=== PATIENT | female | born 1965 | race Caucasian/White ===

== ENCOUNTER 2019-09-07 08:35 | Outpatient (CLI) | payer OTHER, MEDICARE, SELFPAY ==
--- NOTE | ~2019-09-07 | XR_ITS ---
XR abdomen/kub 1V 09/07/2019 09:04 Indication: Kidney stones. Procedure: KUB Comparison: No prior studies for comparison. Findings: There are multiple bilateral renal stones which are partially obscured by bowel content. Mo derate colonic fecal loading. There are cholecystectomy clips. No acute osseous abnormality. Impression: 1: Bilateral nephrolithiasis. Reviewed, dictated and finalized at location B. [employer] Impression: 1: Bilateral nephrolithiasis.
== END 2019-09-07 08:36 | disposition home or self-care (01) ==
LOC: ANHIMG 08:49
PROVIDERS: PCP Family Medicine Adolescent Medicine; Visit Provider Urology
DX: N20.0 Calculus of kidney (principal)
CPT/HCPCS: 74018

== ENCOUNTER 2019-09-18 16:39 | Outpatient (CLI) | payer OTHER, MEDICARE, SELFPAY ==
[2019-09-18 17:41] LABS: Partial Thromboplastin Time 25.9 SEC (22.3-31.6); Prothrombin Time 10.7 Seconds (9.64-11.0)
== END 2019-09-18 16:40 | disposition home or self-care (01) ==
LOC: CHSLAB 16:47
PROVIDERS: PCP Family Medicine Adolescent Medicine; Visit Provider Anesthesiology
DX: N20.0 Calculus of kidney (principal)
CPT/HCPCS: 36415; 85610; 85730; 87086; 87088

== ENCOUNTER 2019-09-21 02:20 | Day surgery (SDC) | payer OTHER, MEDICARE, SELFPAY ==
[2019-09-18 11:12] VITALS: BMI 37.5
[2019-09-21] VITALS (9 sets, daily range): BP systolic 120–159; BP diastolic 66–82; PULSE 63–77; RESP 8–18; TEMP 37.2–37.8; O2SAT 94–100; BMI 38.3
--- NOTE | ~2019-09-21 | XR_ITS ---
XR abdomen/kub 1V DATE: 09/21/2019 07:33 INDICATION: Right renal lithotripsy TECHNIQUE: AP projection, 2 views COMPARISON: 09/07/2019 KUB FINDINGS: Multiple calcifications overlie the right kidney, measuring up to approximately 5 mm francisco j l dimension. Gas and fecal content of the transverse colon may obscure previously reported left renal calcified stones. No apparent calcification overlying the ureters since 09/07/2019. Status post cholecystectomy There is some opaque tablets within the bowel. No bowel obstruction is evident. IMPRESSION: Right nephrolithiasis; mild content prevents optimal evaluation for left kidney stones. Noncontrast CT abdomen pelvis would be more helpful for evaluation of urinary tract stones. Reviewed, dictated and finalized at Location A. Reviewed, dictated and finalized at location D. IMPRESSION: Right nephrolithiasis; mild content prevents optimal evaluation for left kidney stones. Noncontrast CT abdomen pelvis would be more helpful for evaluation of urinary t ract stones.
[2019-09-21] MEDS: LACTATED RINGERS 1,000 ML 30 ML IV CONT (07:45)
--- NOTE | 2019-09-21 08:11 | WPDHPUPDATE1 ---
History and Physical Update Update Date/Time: 09/21/19 08:11 History and Physical has been reviewed, including an updated exam of the patient. There are NO changes in the patient's condition. Risks, benefits, and alternatives have been discussed and questions answered. Patient agrees to proceed with procedure.
--- NOTE | 2019-09-21 09:19 | WPDANESEPPF ---
Anes - Initial Pre Proc Eval Procedure: Operation Date: 09/21/19 09:30 Proposed Procedures p Flexible Cystoscopy, Right Renal Extracorporeal Shock Wave Lithotripsy - Jose Miguel Ortiz MD Date/Time: 09/21/19 09:19 Surgeon: Jose Miguel Ortiz MD Pre Op Diagnosis: Right Kidney Stones Patient Data Age: 54 Gender: F Height: 5 ft 2 in Weight: 95.1 kg Last Vital Signs Temp 37.8 C H 09/21/19 07:45 Pulse 63 09/21/19 07:45 Resp 18 09/21/19 07:45 BP 133/66 09/21/19 07:45 Pulse Ox 95 09/21/19 07:45 Allergies Allergy/AdvReac Type Severity Reaction Status Date / Time No Known Allergies Allergy Unverified 09/18/19 10:47 Home Medications Medication Instructions Recorded Confirmed Type albuterol sulfate 2 puff INHALATION QID PRN 09/18/19 09/18/19 History amitriptyline 25 mg PO HS 09/18/19 09/18/19 History atorvastatin 20 mg PO DAILY 09/18/19 09/18/19 History doxycycline hyclate 100 mg PO DAILY 09/18/19 09/18/19 History ergocalciferol (vitamin D2) 50,000 unit PO MONTHLY 09/18/19 09/18/19 History [Vitamin D2] folic acid 1 mg PO DAILY 09/18/19 09/18/19 History hydrocodone-acetaminophen 1 tablet PO Q6H PRN 09/18/19 09/18/19 History levetiracetam 1,500 mg PO BID 09/18/19 09/18/19 History omeprazole magnesium [Prilosec OTC] 20 mg PO DAILY 09/18/19 09/18/19 History propranolol 20 mg PO Q12H 09/18/19 09/18/19 History sertraline 100 mg PO DAILY 09/18/19 09/18/19 History solifenacin 10 mg PO DAILY 09/18/19 09/18/19 History topiramate 25 mg PO HS 09/18/19 09/18/19 History Patient hx anesthesia problems: none Family hx anesthesia problems: none PMFSH Past Medical History Medical History (Updated 09/21/19 @ 09:19 by Jose Juan Ureña MD) Multiple sclerosis Obesity Anes - Eval Final PreProcedure Day of Procedure 09/21/19 09:19 Patient weight: obese Heart: regular rate and rhythm Lungs: clear to auscultation Airway: Mallampati scale class II Neurological: alert and oriented Last oral intake: >/= 8 hours ASA classification: IV Emergent: no Anesthetic plan: proceed Anesthesia type and monitoring: general LMA and standard monitoring Informed Consent: The patient's anesthetic plan and its attendant risks and benefits were discussed with the patient/family/POA. Questions were solicited and answers provided to the satisfaction of the patient/family/POA.
[2019-09-21] MEDS: ceFAZolin 2 GM/D5W 50 ML 2 GM/50 ML BAG IVPB (09:46)
--- NOTE | 2019-09-21 10:28 | PM.PROC ---
Procedure Note - Detailed Date of procedure: 09/21/19 Pre-op diagnosis: Right Kidney Stones Right renal calculi Hematuria Post-op diagnosis: same Procedure performed: Flexible cystoscopy, lithotripsy of right renal calculi Description of procedure: Patient was taken to the operative suite and correctly identified. Once anesthesia was obtained she was placed in frog-leg position prepped and draped usual sterile fashion. Sixteen Lithuanian flexible scope was inserted in the bladder there is no tumors noted. Both ureteral orifices normal anatomic position. She is then repositioned and the stones in the kidney localized in both planes. There approximately 3 distinct stones noted. We dispersed a 2500 shocks amongst those stones. Patient tolerated procedure well without any complications taken recovery room stable condition. Given the standard post litho instructions. She will follow up in about 10 days with KUB. Anesthesia: GLMA Surgeon: Jose Miguel Ortiz MD Drains: No Packing: No Pathology: none sent Complications: No immediate complications Condition: stable Disposition: PACU
--- NOTE | 2019-09-21 12:35 | SUR.PHASEII ---
1220 PT REFUSED SCRIPT FOR ULTRAM,TAKES [employer] 7.5 SEVERAL TIMES A DAY.
== END 2019-09-21 12:32 | disposition home or self-care (01) ==
PROVIDERS: PCP Family Medicine Adolescent Medicine; Visit Provider Urology
PROC: (CPT 50590; principal; 2019-09-21 09:30)
DX: N20.0 Calculus of kidney (principal); G35 Multiple sclerosis; E66.9 Obesity, unspecified; Z68.38 Body mass index [BMI] 38.0-38.9, adult
CPT/HCPCS: 50590; 74018; A9270; J0690; J1100; J2250; J2370; J2405; J2704; J3010; J7120

== ENCOUNTER 2019-09-22 07:50 | Outpatient (CLI) | payer OTHER, MEDICARE, SELFPAY ==
--- NOTE | ~2019-09-22 | MR_ITS ---
EXAMINATION: MR lumbar spine wo con DATE: 09/22/2019 09:26 INDICATION: Low back pain and sciatica with bilateral leg pain. TECHNIQUE: Magnetic resonance imaging (MRI) of the lumbar spine was performed without intravenous con trast. Sequences included sagittal T2-weighted FSE, sagittal T2-weighted FS FSE, sagittal T1-weighted FSE, and axial T2-weighted FSE. COMPARISON: Lumbar spine radiographs dated 11/15/2017 FINDINGS: Alignment is normal. Vertebral body heights are normal. Normal marrow signal. Disc desiccation and m ild disc height loss at L2-L3 through L5-S1. The conus medullaris terminates at L2. There is normal s ignal in the caudal spinal cord. Paravertebral soft tissues are unremarkable. The following disc leve ls are specifically discussed: T12-L1: The disc does not extend beyond the endplate margin. There is mild bilateral facet joint oste oarthritis. There is no neural foraminal stenosis. There is no central canal stenosis. L1-L2: The disc does not extend beyond the endplate margin. There is mild bilateral facet joint osteo arthritis. There is no neural foraminal stenosis. There is no central canal stenosis. L2-L3: Annular fissure and left foraminal zone disc protrusion There is mild bilateral facet joint os teoarthritis. There is mild left neural foraminal stenosis. There is no central canal stenosis. L3-L4: Small disc protrusions at the bilateral foraminal zones, left greater than right. There is mil d hypertrophy of the ligamentum flavum. There is old right and moderate left facet joint osteoarthri tis. There is mild left neural foraminal stenosis. There is no central canal stenosis. L4-L5: Disc is minimally bulging with superimposed annular fissure and left foraminal zone disc protr usion. There is mild hypertrophy of the ligamentum flavum. There is mild to moderate bilateral facet joint osteoarthritis. There is mild left and minimal right neural foraminal stenosis. There is minima l central canal stenosis. L5-S1: Annular fissure with small left paracentral to foraminal zone disc protrusion. There is mild b ilateral facet joint osteoarthritis. There is mild left and minimal right neural foraminal stenosis. There is no central canal stenosis. IMPRESSION: 1. Mild lumbar spondylosis. Reviewed, dictated and finalized at location A. IMPRESSION: 1. Mild lumbar spondylosis.
--- NOTE | ~2019-09-22 | MR_ITS ---
EXAMINATION: MR cervical spine wo con DATE: 09/22/2019 09:10 INDICATION: Neck pain TECHNIQUE: Magnetic resonance imaging (MRI) of the cervical spine was performed without intravenous c ontrast. Sequences included sagittal T2-weighted FSE, sagittal T2-weighted FS FSE, sagittal T1-weight ed FSE, axial MERGE and axial T2-weighted FSE. COMPARISON: None FINDINGS: Slight reversal of the normal cervical lordosis. Vertebral body heights are normal. Moderate disc he ight loss at 3 C4 and mild disc height loss at C4-C5 through C6-C7. Cord signal intensity is normal. Cervical soft tissues are unremarkable. The following disc levels are specifically discussed: C2-C3: The disc does not extend beyond the endplate margin. There is no uncovertebral joint osteoarth ritis. There is mild right and severe left facet joint osteoarthritis. There is mild left neural fora rob stenosis. There is no central canal stenosis. C3-C4: Disc is bulging with annular fissure and small central disc extrusion with disc material exten ding up to 3 mm caudal to the level of the superior endplate of C4. There is mild right and moderate left uncovertebral joint osteoarthritis. There is moderate left and severe right facet joint osteoart hritis. There is mild bilateral neural foraminal stenosis. There is mild central canal stenosis. C4-C5: Disc is mildly bulging, eccentric to the right. There is moderate bilateral uncovertebral join t osteoarthritis. There is mild left and severe right facet joint osteoarthritis. There is mild left and moderate right neural foraminal stenosis. There is mild central canal stenosis. C5-C6: Disc is bulging, eccentric to the right with annular tear. There is moderate left and severe r ight uncovertebral joint osteoarthritis. There is mild left and moderate right facet joint osteoarthr itis. There is mild bilateral, right greater than left, neural foraminal stenosis. There is mild cent ral canal stenosis. C6-C7: Disc is bulging with superimposed left paracentral annular fissure and disc protrusion. There is severe bilateral uncovertebral joint osteoarthritis. There is mild bilateral facet joint osteoarth ritis. There is mild to moderate left and moderate right neural foraminal stenosis. There is mild manolo tral canal stenosis. C7-T1: The disc does not extend beyond the endplate margin. There is no uncovertebral joint osteoarth ritis. There is moderate bilateral facet joint osteoarthritis. There is mild left neural foraminal st enosis. There is no central canal stenosis. IMPRESSION: 1. Slight interval progression in still moderate cervical spondylosis. Reviewed, dictated and finalized at location A.
== END 2019-09-22 07:51 | disposition home or self-care (01) ==
PROVIDERS: PCP Family Medicine Adolescent Medicine; Visit Provider Psychiatry & Neurology Neurology
DX: M54.40 Lumbago with sciatica, unspecified side (principal); G43.909 Migraine, unspecified, not intractable, without status migrainosus; M47.816 Spondylosis without myelopathy or radiculopathy, lumbar region; M47.812 Spondylosis without myelopathy or radiculopathy, cervical region
CPT/HCPCS: 72141; 72148

== ENCOUNTER 2019-10-29 14:22 | Emergency (ER) | payer OTHER, MEDICARE, SELFPAY ==
--- NOTE | ~2019-10-29 | CT_ITS ---
EXAMINATION: CT chest w con EXAM DATE: 10/29/2019 16:33 INDICATION: Left supraclavicular swelling. Clinical concern for lymphadenopathy or venous thrombosis. TECHNIQUE: Spiral CT of the chest following intravenous injection of 75 mL Omnipaque 350. Delayed mix ed phase imaging, started 90 seconds after injection, and slower injection rate of 1.5 cc/s used to a llow for venous opacification. Axial, coronal and sagittal images were reviewed. Coronal maximum int ensity pixel images of chest reviewed. The dose-length product (DLP) for this examination was 543.17 mGy-cm. The exposure was tailored according to patient size (auto mA exposure control), and iterati ve reconstruction (ASIR) was used as additional dose reduction technique. FINDINGS: The jugular and subclavian veins demonstrating some enhancement, and are without filling de fects. No supraclavicular, axillary or lower cervical lymphadenopathy. There is dependent groundglass opacity, more pronounced than on previous examination, but likely subsegmental atelectasis given dep endent distribution. There are no pleural or pericardial effusions. Tracheobronchial tree is paten t. No mediastinal lymphadenopathy. There is no pneumothorax. Heart normal in size. No evidence of coronary arterial calcification. There is hepatic steatosis. Cholecystectomy clips. There is th oracic spondylosis without osteoblastic or osteolytic lesions identified. IMPRESSION: 1. No jugular or subclavian venous thrombosis. No lymphadenopathy. 2. Basilar dependent groundglass opacities most likely subsegmental atelectasis. Reviewed, dictated and finalized at location A. IMPRESSION: 1. No jugular or subclavian venous thrombosis. No lymphadenopathy. 2. Basilar dependent groundglass opacities most likely subsegmental atelectasi s.
--- NOTE | ~2019-10-29 | US_ITS ---
EXAMINATION: US venous doppler UE EXAM DATE: 10/29/2019 15:31 INDICATION: Left arm pain and swelling. TECHNIQUE: Multiple grayscale, color flow, Doppler sonographic images of the left upper extremity vei ns obtained by technologist. Compression was performed where able. There is no prior study for [place]. FINDINGS: Left upper extremity: Jugular vein: ------------> Normal. Subclavian vein: --------> Normal. Axillary vein:------------> Normal. Brachial vein:-----------> Normal. Basilic vein: ------------> Normal. Cephalic vein: ----------> Normal. Radial vein: ------------> Normal. Ulnar vein: > Normal. IMPRESSION: No deep venous thrombosis of the left upper extremity. Reviewed, dictated and finalized at location A.
[2019-10-29 14:30] VITALS: BP 125/50; PULSE 67; RESP 18; TEMP 36.6; O2SAT 98
--- NOTE | 2019-10-29 15:09 | PC.NURSE ---
Patient in ultrasound, unable to obtain labs or provided pain medication prior to patient leaving the department. Will give meds and draw blood upon her return.
--- NOTE | 2019-10-29 15:15 | ED.EXTPRO ---
HPI - Extremity Problem General Chief complaint: Extremity Problem,Nontraumatic Stated complaint: neck and shoulder swelling Time Seen by Provider: 10/29/19 14:56 History of Present Illness HPI Narrative: Patient presents with her for increasing pain and swelling in her left shoulder and left supraclavicular area. This is been going on over 2 to 3 weeks. There was no initial injury or trauma. She has no history of blood clot. She does have MS and sees Dr. Burden for this. She says that the [employer] 7.5 that she takes several times a day for her MS pain is not helping with this shoulder pain. She repeatedly asked for pain medicine. She denies recent illness, in particular cough shortness of breath fever and chills. She has been sheltering in place, and has no additional risk of COVID. Her appetite is good her bowels are moving and she makes good urine. She can only walk 2 or 3 steps by herself. She usually sits in a wheelchair. Related Data Home Medications Medication Instructions Recorded Confirmed Prilosec OTC 20 mg PO DAILY 09/18/19 09/18/19 albuterol sulfate 2 puff INHALATION QID PRN 09/18/19 09/18/19 amitriptyline 25 mg PO HS 09/18/19 09/18/19 atorvastatin 20 mg PO DAILY 09/18/19 09/18/19 ergocalciferol (vitamin D2) 50,000 unit PO MONTHLY 09/18/19 09/18/19 [Vitamin D2] folic acid 1 mg PO DAILY 09/18/19 09/18/19 hydrocodone-acetaminophen 1 tablet PO Q6H PRN 09/18/19 09/18/19 levetiracetam 1,500 mg PO BID 09/18/19 09/18/19 propranolol 20 mg PO Q12H 09/18/19 09/18/19 sertraline 100 mg PO DAILY 09/18/19 09/18/19 solifenacin 10 mg PO DAILY 09/18/19 09/18/19 topiramate 25 mg PO HS 09/18/19 09/18/19 calcium carbonate-vitamin D3 1 cap PO DAILY 10/29/19 [Calcium 600 + D(3)] lorazepam 0.5 mg PO DAILY 10/29/19 metaxalone 800 mg PO TID 10/29/19 methylprednisolone 4 mg PO DAILY 10/29/19 milnacipran [Savella] 50 mg PO BID 10/29/19 pilocarpine HCl 5 mg PO QID 10/29/19 pregabalin [Lyrica] 150 mg PO TID 10/29/19 Allergies Allergy/AdvReac Type Severity Reaction Status Date / Time No Known Allergies Allergy Verified 10/29/19 15:11 Review of Systems Review of Systems: Narrative: CONSTITUTIONAL: Denies fever, chills, or sweats. EYES: Denies visual changes, redness, or discharge. ENT: Denies rhinorrhea, congestion, sore throat, or otalgia. CARDIOVASCULAR: Denies chest pain, palpitations, or edema. RESPIRATORY: Denies cough or dyspnea. GASTROINTESTINAL: Denies abdominal pain, nausea, vomiting, or diarrhea. GENITOURINARY: Denies dysuria or hematuria. SKIN: Denies rash or itching. MUSCULOSKELETAL: Denies elbow or wrist pain, left shoulder pain is worse with movement. NEUROLOGIC: Denies headache, numbness, or weakness. PSYCHIATRIC: Denies anxiety or depression. All systems reviewed & are unremarkable except as noted in HPI and below PMFSH Past Medical History Medical History Multiple sclerosis Obesity Social History Social History (Updated 10/29/19 @ 15:18 by Constanza Crowley MD) Smoking status: Never smoker Alcohol intake: never Substance use: never Gender identity (if verbalized by the patient): Female Exam Narrative: Exam Narrative: GENERAL: Well-appearing, well-nourished, and in no acute distress, morbid obesity HEAD: Normocephalic, atraumatic. EYES: PERRLA and EOMI. ENT: Nares clear, no rhinorrhea or epistaxis. Mucous membranes moist. NECK: Supple. CHEST: Clear to auscultation. No respiratory distress. Supra clavicular swelling on the left. HEART: Regular rate and rhythm. No murmur heard. Normal peripheral pulses. ABDOMEN: Soft, nontender, nondistended, normal active bowel sounds. EXTREMITIES: Decreased range of motion of the left shoulder. no edema. SKIN: Warm, dry, no rash. NEURO: No focal deficits. Alert and oriented x3. PSYCH: Flat affect. Course Reevaluation(s) Reevaluation #1: We went to the room with the patient and her , to
--- NOTE | 2019-10-29 15:29 | PC.NURSE ---
Patient back from ultrasound at this time.
[2019-10-29 15:40] LABS: Basophils Absolute Auto 0.1 K/mm3 (0.0-0.1); Basophils Percent Auto 0.8 % (0.2-1.2); Eosinophils Absolute Auto 0.2 K/mm3 (0-0.3); Eosinophils Percent Auto 2.6 % (0-4.4); Hematocrit 49.9 % (37.0-47.0); Hemoglobin 16.4 g/dL (12.0-15.0); Immature Granulocyte Absolute 0.04 K/mm3 (0.00-0.031); Immature Granulocyte Percent A 0.5 % (0-0.5); Lymphocytes Absolute Auto 2.32 K/mm3 (0.9-3.2); Lymphocytes Percent Auto 29.7 % (18.3-44.2); Mean Corpuscular HGB Conc 32.9 g/dl (32-36); Mean Corpuscular Hemoglobin 31.6 pg (26-34); Mean Corpuscular Volume 96.1 fl (80-100); Monocytes Absolute Auto 0.6 K/mm3 (0.1-0.6); Monocytes Percent Auto 7.2 % (2.6-8.5); Neutrophils Absolute Auto 4.6 K/mm3 (1.3-6.7); Neutrophils Percent Auto 59.2 % (45.5-73.1); Platelet Count Result 169 k/mm3 (150-375); Red Blood Count 5.19 M/mm3 (4.2-5.4); Red Cell Distribution Width 13.3 % (11.5-14.5); White Blood Count 7.8 K/mm3 (4.5-10.0)
[2019-10-29 15:50] LABS: INR 0.9; Prothrombin Time 12.2 Seconds (11.1-14.7)
[2019-10-29 15:52] LABS: D Dimer 0.33 ug/mL (<0.48)
[2019-10-29 15:59] LABS: Alanine Aminotransferase 28 U/L (4-35); Albumin Level 4.4 g/dL (3.5-5.1); Alkaline Phosphatase 156 U/L (38-126); Aspartate Amino Transferase 37 U/L (14-36); Bilirubin,Total 0.4 mg/dL (0.2-1.3); Blood Urea Nitrogen 13 mg/dL (7-17); Calcium 8.9 mg/dL (8.4-10.2); Carbon Dioxide 26 mmol/L (22-30); Chloride 105 mmol/L (98-107); Estimated CRCL calculation 68 ml/min; Estimated Glomerular Filt Rate > 60; Glucose 98 mg/dL (65-105); Potassium 4.2 mmol/L (3.4-5.0); Sodium 139 mmol/L (137-145)
[2019-10-29 16:06] VITALS: BP 113/72; PULSE 62; RESP 19; TEMP 36.6; O2SAT 100
--- NOTE | 2019-10-29 16:13 | PC.NURSE ---
Patient to CT at this time.
[2019-10-29 17:14] VITALS: BP 115/69; PULSE 67; RESP 14; TEMP 36.6; O2SAT 98
== END 2019-10-29 17:45 | disposition home or self-care (01) ==
PROVIDERS: Emergency Provider Emergency Medicine; PCP Family Medicine Adolescent Medicine
DX: M25.512 Pain in left shoulder (principal); D75.1 Secondary polycythemia; G35 Multiple sclerosis; E66.9 Obesity, unspecified; Z68.36 Body mass index [BMI] 36.0-36.9, adult; M79.602 Pain in left arm
CPT/HCPCS: 36415; 71260; 80053; 85025; 85380; 85610; 93971; 99284; A9270; Q9967

== ENCOUNTER 2020-10-01 10:02 | Outpatient (CLI) | payer OTHER, MEDICARE, SELFPAY ==
--- NOTE | ~2020-10-01 | XR_ITS ---
XR abdomen/kub 1V 10/01/2020 10:31 Indication: Bilateral kidney pain Procedure: KUB Comparison: Comparison to multiple prior studies sequentially, with oldest reviewed study dated 03/2018. Findings: Bowel gas pattern is nonobstructive. There are multiple radiodensities in the bowel. Modera te colonic fecal loading. There are cholecystectomy clips. There are right renal stones.. Impression: 1: Right nephrolithiasis. Reviewed, dictated and finalized at location B. Impression: 1: Right nephrolithiasis.
== END 2020-10-01 10:03 | disposition home or self-care (01) ==
LOC: ANHIMG 10:10
PROVIDERS: PCP Family Medicine Adolescent Medicine; Visit Provider Urology
DX: N20.0 Calculus of kidney (principal)
CPT/HCPCS: 74018

== ENCOUNTER → 2020-10-07 05:01 | Outpatient (CLI) | payer OTHER, MEDICARE, SELFPAY ==
[2020-10-07 19:04] LABS: SARS-CoV-2 RNA PCR Negative
== END ==
PROVIDERS: PCP Family Medicine Adolescent Medicine; Visit Provider Urology
DX: Z01.812 Encounter for preprocedural laboratory examination (principal); Z20.822 Contact with and (suspected) exposure to COVID-19
CPT/HCPCS: C9803; U0003; U0005

== ENCOUNTER 2020-10-07 08:22 | Outpatient (CLI) | payer OTHER, MEDICARE, SELFPAY ==
--- NOTE | 2020-10-07 08:32 | ECG_ITS ---
Measurements Intervals [place] Rate: 55 P: 36 ND: 149 QRS: 18 QRSD: 97 T: 32 QT: 420 QTc: 403 Interpretive Statements SINUS BRADYCARDIA DELAYED PRECORDIAL R/S TRANSITION BORDERLINE ST-T WAVE ABNORMALITY- ANTERIOR LEADS BASELINE ARTIFACT- I, II, III, AVL BORDERLINE ECG Electronically Signed On 10-07-2020 8:58:05 CDT by Eduardo Sanchez D.O.
[2020-10-07 09:17] LABS: Hematocrit 44.6 % (37.0-47.0); Hemoglobin 14.3 g/dL (12.0-15.0)
[2020-10-07 09:28] LABS: INR 0.9; Partial Thromboplastin Time 27.5 SECONDS (22.3-36.8); Prothrombin Time 12.5 Seconds (11.1-14.7)
== END 2020-10-07 08:23 | disposition home or self-care (01) ==
LOC: ANHSURGERY 08:26
PROVIDERS: Anesthesiology; PCP Family Medicine Adolescent Medicine; Visit Provider Urology
DX: N20.0 Calculus of kidney (principal); E78.5 Hyperlipidemia, unspecified; D75.1 Secondary polycythemia; Z01.818 Encounter for other preprocedural examination
CPT/HCPCS: 36415; 85014; 85018; 85610; 85730; 93005

== ENCOUNTER 2020-10-10 02:19 | Day surgery (SDC) | payer OTHER, MEDICARE, SELFPAY ==
[2020-10-06 15:44] VITALS: BMI 32.5
--- NOTE | ~2020-10-10 | XR_ITS ---
EXAMINATION: XR abdomen/kub 1V DATE: 10/10/2020 06:25 INDICATION: Right kidney stones. TECHNIQUE: A supine view of the abdomen on 2 radiographs was obtained. COMPARISON: Abdomen radiographs 10/01/2020, CT abdomen and pelvis 06/09/2017 FINDINGS: There are no dilated loops of bowel. There are stones in the kidneys measuring up to 4 mm o n the right. Surgical clips in the right upper quadrant are likely from cholecystectomy. IMPRESSION: 1. Bilateral kidney stones. Reviewed, dictated and finalized at location A. IMPRESSION: 1. Bilateral kidney stones.
--- NOTE | 2020-10-10 06:51 | P.PNAN_ITS ---
Anes - Initial Pre Proc Eval Procedure: Operation Date: 10/10/20 07:30 Proposed Procedures p Right Extracorporeal Shock Wave Lithotripsy - Jose Miguel Ortiz MD Date/Time: 10/10/20 06:51 Surgeon: Jose Miguel Ortiz MD Pre Op Diagnosis: Right Renal Stone Patient Data Age: 55 Gender: F Height: 5 ft 4 in Weight: 86 kg Allergies Allergy/AdvReac Type Severity Reaction Status Date / Time No Known Allergies Allergy Verified 10/10/20 06:34 Home Medications Medication Instructions Recorded Confirmed Type albuterol sulfate 2 puff INHALATION QID PRN 09/18/19 10/10/20 History amitriptyline 25 mg PO HS 09/18/19 10/10/20 History atorvastatin 20 mg PO DAILY 09/18/19 10/10/20 History ergocalciferol (vitamin D2) 50,000 unit PO MONTHLY 09/18/19 10/10/20 History [Vitamin D2] folic acid 1 mg PO DAILY 09/18/19 10/10/20 History levetiracetam 1,500 mg PO BID 09/18/19 10/10/20 History omeprazole magnesium [Prilosec OTC] 20 mg PO DAILY 09/18/19 10/10/20 History propranolol 20 mg PO BID 09/18/19 10/10/20 History solifenacin 10 mg PO DAILY 09/18/19 10/06/20 History topiramate 25 mg PO HS 09/18/19 10/06/20 History lorazepam 0.5 - 1 mg PO BID PRN 10/29/19 10/10/20 History metaxalone 800 mg PO TID 10/29/19 10/06/20 History methylprednisolone 4 mg PO DAILY 10/29/19 10/10/20 History pregabalin [Lyrica] 150 mg PO TID 10/29/19 10/10/20 History aspirin 81 mg PO DAILY 10/06/20 10/10/20 History docusate sodium [Stool Softener] 50 mg PO BID 10/06/20 10/10/20 History doxycycline hyclate 100 mg PO HS 10/06/20 10/10/20 History meclizine 25 mg PO QID PRN 10/06/20 10/06/20 History tiotropium-olodaterol [Stiolto 2 puff INHALATION DAILY 10/06/20 10/06/20 History Respimat] Patient hx anesthesia problems: none Family hx anesthesia problems: none [facility] Past Medical History Medical History (Updated 10/10/20 @ 06:54 by Jose Juan Ureña MD) Multiple sclerosis Obesity SLE (systemic lupus erythematosus) Surgical History Surgical History (Updated 10/10/20 @ 06:54 by Jose Juan Ureña MD) Hx of cystoscopy Social History Social History Years smoked: 5 Smoking status: Former smoker Tobacco type: cigarettes Smoking end date: 07/04/90 Alcohol intake: never Substance use: never Substance use type: does not use Living arrangements: with family Gender identity (if verbalized by the patient): Female Spiritual care concerns: No Anes - Eval Final PreProcedure Day of Procedure 10/10/20 06:51 Patient weight: obese Heart: regular rate and rhythm Lungs: clear to auscultation Airway: Mallampati scale class II Neurological: alert and oriented Last oral intake: >/= 8 hours ASA classification: III Emergent: no Anesthetic plan: proceed Anesthesia type and monitoring: general LMA and standard monitoring Informed Consent: The patient's anesthetic plan and its attendant risks and benefits were discussed with the patient/family/POA. Questions were solicited and answers provided to the satisfaction of the patient/family/POA.
[2020-10-10] MEDS: LACTATED RINGERS 1,000 ML 30 ML IV CONT (07:00)
[2020-10-10 07:05] VITALS: BP 113/64; PULSE 60; TEMP 37.6; O2SAT 99
--- NOTE | 2020-10-10 07:16 | WPDHPUPDATE1 ---
History and Physical Update Update Date/Time: 10/10/20 07:16 History and Physical has been reviewed, including an updated exam of the patient. There are NO changes in the patient's condition. Risks, benefits, and alternatives have been discussed and questions answered. Patient agrees to proceed with procedure. Proceed with right renal eswl.
[2020-10-10] MEDS: ceFAZolin 2 GM/D5W 50 ML 2 GM/50 ML BAG IVPB (07:20)
--- NOTE | 2020-10-10 07:57 | P.OP_ITS ---
Procedure Note - Detailed Date of procedure: 10/10/20 Pre-op diagnosis: Right Renal Stone Post-op diagnosis: same Procedure performed: ESWL of right renal calculi Description of procedure: Patient is taken the operative suite and correctly clarissa ntified. Once anesthesia was obtained she was placed in supine position with the stone was localized in both planes. She has 2 stones in the right kidney and there fairly close in proximity. Two thousand five hundred shocks were given to the stones. Patient had quite a bit of respiratory effort during the procedure. Patient tolerated procedure well without any complications and is taken recovery room stable condition. Anesthesia: GLMA Surgeon: Jose Miguel Ortiz MD Drains: No Packing: No Pathology: none sent Complications: No immediate complications Condition: stable Disposition: PACU
[2020-10-10 08:07] VITALS: BP 111/65; PULSE 57; RESP 15; TEMP 37.6; O2SAT 100
[2020-10-10 08:15] VITALS: BP 111/67; PULSE 61; RESP 16; O2SAT 97
[2020-10-10] MEDS: fentaNYL CITRATE INJ (*CRX) 100 MCG/2 ML VIAL 25 MCG IV PUSH ×2 (08:27→08:31)
[2020-10-10 08:30] VITALS: BP 112/70; PULSE 60; RESP 12; O2SAT 96
[2020-10-10 08:35] VITALS: BP 125/61; PULSE 62; RESP 16
[2020-10-10] MEDS: oxyCODONE HCL (*CRX) 5 MG TAB IR PO (08:53)
[2020-10-10 09:05] VITALS: BP 123/64; PULSE 66; RESP 14
== END 2020-10-10 09:18 | disposition home or self-care (01) ==
PROVIDERS: PCP Family Medicine Adolescent Medicine; Visit Provider Urology
PROC: (CPT 50590; principal; 2020-10-10 07:30)
DX: N20.0 Calculus of kidney (principal); Z79.82 Long term (current) use of aspirin; Z79.51 Long term (current) use of inhaled steroids; G35 Multiple sclerosis; M32.9 Systemic lupus erythematosus, unspecified; Z87.891 Personal history of nicotine dependence; E66.9 Obesity, unspecified; Z68.34 Body mass index [BMI] 34.0-34.9, adult
CPT/HCPCS: 50590; 36415; 74018; 85014; 85018; 85610; 85730; 93005; A9270; C9803; J0690; J1100; J2405; J2704; J3010; J7120; U0003; U0005

== ENCOUNTER 2020-10-24 08:22 | Outpatient (CLI) | payer OTHER, MEDICARE, SELFPAY ==
--- NOTE | ~2020-10-24 | XR_ITS ---
EXAMINATION: XR abdomen/kub 1V DATE: 10/24/2020 09:26 INDICATION: Kidney stone. TECHNIQUE: A supine view of the abdomen on 2 radiographs was obtained. COMPARISON: CT abdomen and pelvis 06/09/2017, abdomen radiographs 10/10/2020 FINDINGS: There are no dilated loops of bowel. Surgical clips in the right upper quadrant are likely from cholecystectomy. There are 3 mm and 4 mm stones in right kidney. There is a 3 mm stone in proxim al right ureter at L3. There is 3 mm and 4 mm stones in left kidney. IMPRESSION: 1. Stones in the kidneys and proximal right ureter. Reviewed, dictated and finalized at location B.
== END 2020-10-24 08:23 | disposition home or self-care (01) ==
LOC: ANHIMG 08:28
PROVIDERS: PCP Family Medicine Adolescent Medicine; Visit Provider Urology
DX: N20.2 Calculus of kidney with calculus of ureter (principal)
CPT/HCPCS: 74018

== ENCOUNTER 2021-09-09 12:41 | Outpatient (CLI) | payer OTHER, MEDICARE, SELFPAY ==
[2021-09-09 13:58] LABS: Hematocrit 48.5 % (37.0-47.0); Hemoglobin 15.7 g/dL (12.0-15.0); Immature Platelet Fraction Pct 15.6 % (0.9-11.2); Mean Corpuscular HGB Conc 32.4 g/dl (32-36); Mean Corpuscular Hemoglobin 32.6 pg (26-34); Mean Corpuscular Volume 100.8 fl (80-100); Mean Platelet Volume 13.3 fl (7.4-10.4); Platelet Count Result 173 k/mm3 (150-375); Red Blood Count 4.81 M/mm3 (4.2-5.4); Red Cell Distribution Width 14.2 % (11.5-14.5); White Blood Count 9.5 K/mm3 (4.5-10.0)
[2021-09-09 14:11] LABS: Alanine Aminotransferase 30 U/L (4-35); Albumin Level 4.1 g/dL (3.5-5.1); Alkaline Phosphatase 158 U/L (38-126); Anion Gap 10 mmol/L (8-16); Aspartate Amino Transferase 37 U/L (14-36); Bilirubin,Total 0.6 mg/dL (0.2-1.3); Blood Urea Nitrogen 21 mg/dL (7-17); Calcium 8.9 mg/dL (8.4-10.2); Carbon Dioxide 25 mmol/L (22-30); Chloride 104 mmol/L (98-107); Estimated Glomerular Filt Rate > 60; Glucose 103 mg/dL (65-110); Sodium 139 mmol/L (137-145); Uric Acid 4.6 mg/dL (2.5-7.5)
== END 2021-09-09 12:42 | disposition home or self-care (01) ==
LOC: ANHLAB 12:52
PROVIDERS: PCP Family Medicine Adolescent Medicine; Visit Provider Physician Assistant
DX: M79.671 Pain in right foot (principal); R53.83 Other fatigue
CPT/HCPCS: 36415; 80053; 84443; 84550; 85027; 85055

== ENCOUNTER 2022-04-02 02:29 | Emergency (ER) | payer OTHER, MEDICARE, SELFPAY ==
--- NOTE | ~2022-04-02 | CT_ITS ---
EXAMINATION: CT brain wo con DATE: 04/02/2022 03:01 INDICATION: Status post fall. Head injury. TECHNIQUE: Computed tomography (CT) of the head was performed without intravenous contrast. The dose- length product was 605.33 mGy-cm. Automated exposure control and iterative reconstruction technique w ere employed. COMPARISON: CT dated 05/17/2018 FINDINGS: No acute intracranial hemorrhage, infarction, mass or mass effect. No ventriculomegaly or m idline shift. Basilar cisterns are patent. Paranasal sinuses and mastoids are pneumatized. No depress ed skull fractures. IMPRESSION: 1. No acute intracranial abnormality. Reviewed, dictated and finalized at location B.
--- NOTE | ~2022-04-02 | XR_ITS ---
EXAMINATION: XR elbow LT min 3V DATE: 04/02/2022 03:16 INDICATION: Left elbow pain and limited range of motion post fall TECHNIQUE: Anteroposterior, two oblique and lateral views of the left elbow were obtained. COMPARISON: None. FINDINGS: Alignment is normal. No fracture or joint effusion. Mild osteoarthritis at the left elbow. Tiny enthe sophyte at the lateral epicondyle. Soft tissues are unremarkable. IMPRESSION: 1. No acute osseous abnormality. Reviewed, dictated and finalized at location A.
--- NOTE | ~2022-04-02 | CT_ITS ---
EXAMINATION: CT cervical spine wo con DATE: 04/02/2022 03:01 INDICATION: Status post fall. Neck pain. TECHNIQUE: Computed tomography (CT) of the cervical spine was performed without intravenous contrast. The dose-length product was 550 mGy-cm. Automated exposure control and iterative reconstruction tech nique were employed. COMPARISON: No prior studies for comparison. FINDINGS: There is mild multilevel degenerative disc disease. Vertebral body heights are maintained. No acute fracture or traumatic malalignment. There is mild carotid atherosclerosis. Odontoid process is unremarkable. No evidence for perched facet. Craniovertebral junction is normal. Lung apices are n ormal. There is mild multilevel uncinate and facet hypertrophy. IMPRESSION: 1. No acute abnormality of the cervical spine. Reviewed, dictated and finalized at location B.
--- NOTE | ~2022-04-02 | XR_ITS ---
EXAMINATION: XR clavicle LT, XR shoulder LT min 2V DATE: 04/02/2022 03:16 INDICATION: Left clavicle/shoulder pain with limited range of motion post fall TECHNIQUE: 1. AP internally and externally rotated, AP oblique externally rotated and transscapular Y views of t he left shoulder were obtained. 2. AP and 10 degrees cephalad angled AP views of the left clavicle were obtained. COMPARISON: None FINDINGS: Normal alignment. No fracture. Glenohumeral joint is normal. Mild acromioclavicular osteoarthritis. Mild to moderate cervical spondylosis. Soft tissues are unremarkable. IMPRESSION: Mild left acromioclavicular osteoarthritis. No acute osseous abnormality. Reviewed, dictated and finalized at location A. IMPRESSION: Mild left acromioclavicular osteoarthritis. No acute osseous abnormality.
[2022-04-02 02:38] VITALS: BP 124/77; PULSE 68; RESP 16; TEMP 36.3; O2SAT 98
--- NOTE | 2022-04-02 02:44 | PC.NURSE ---
swelling noted to left clavicle
[2022-04-02] MEDS: HYDROcodone/acetaminophen (*CRX) 5-325 MG TABLET 1 TAB PO (02:47)
[2022-04-02 03:21] VITALS: BP 108/79; PULSE 64; RESP 18; O2SAT 97
[2022-04-02] MEDS: ONDANSETRON HCL ODT 4 MG TABLET PO (04:02)
--- NOTE | 2022-04-02 04:13 | ED.FALL ---
HPI - Fall General Chief Complaint: Fall Stated Complaint: Fall, Left Elbow Pain Time Seen by Provider: 04/02/22 02:37 Source: RN notes reviewed History of Present Illness HPI Narrative: Patient presents emergency room from home for fall. Patient states that she was trying to step around a cat when she tripped and fell landing on her left side she states she came down on her left shoulder and elbow she states she did strike her head and believes she did have loss of consciousness states that she has had pain on the left side since the fall she denies any vision changes she denies any chest pain shortness of breath abdominal pain numbness or tingling in the extremities or any other symptoms of concern Related Data Home Medications Medication Instructions Recorded Confirmed omeprazole magnesium 20 mg 20 mg PO DAILY 09/18/19 12/18/21 tablet,delayed release (Prilosec OTC) solifenacin 10 mg tablet 10 mg PO DAILY 09/18/19 12/18/21 aspirin 81 mg tablet 81 mg PO DAILY 10/06/20 12/18/21 docusate sodium 50 mg capsule 50 mg PO BID 10/06/20 12/18/21 (Stool Softener) Allergies Allergy/AdvReac Type Severity Reaction Status Date / Time No Known Allergies Allergy Verified 12/18/21 08:32 Review of Systems Review of Systems: Gen.: Denies fevers or chills Eyes: Denies eye pain or visual change ENT: Denies congestion Respiratory: Denies shortness of breath or cough CV: Denies chest pain or palpitations GI: Denies abdominal pain nausea, emesis or diarrhea Musculoskeletal: See HPI Neuro: Reports head injury and loss of consciousness Skin: Denies rash Except as documented, all other systems reviewed and negative [facility] Past Medical History Medical History Aortic atherosclerosis COPD (chronic obstructive pulmonary disease) pulmonary function test 05/09/2019 Hepatic steatosis Multiple sclerosis Obesity Sjogrens syndrome SLE (systemic lupus erythematosus) Surgical History Surgical History History of carpal tunnel surgery of left wrist History of cholecystectomy History of total hysterectomy Hx of cystoscopy Family History Family History Other Alzheimer disease Bladder cancer Diabetes mellitus Heart disease Hypertension Hypothyroid Liver cancer Social History Social History Smoking packs per day: 0.5 Smoking cigarettes per day: 10.0 Years smoked: 5 Smoking pack-years: 2.50 Smoking status: Former smoker Tobacco type: cigarettes Second hand tobacco smoke exposure: No Smoking end date: 07/04/90 Alcohol intake: never Substance use: never Substance use type: does not use Gender identity (if verbalized by the patient): Female Sexual Orientation (if Verbalized by the Patient): Straight or Heterosexual Spiritual care concerns: No Agree to blood products: Yes Exam Narrative: APPEARANCE: No acute distress, nontoxic, resting in bed EYES: EOMI, PERRL HEENT: Normocephalic, atraumatic, TMs clear bilaterally, nares patent no facial tenderness Neck: Supple no midline tenderness palpation tender palpation of left perigee muscles C5-7 RESPIRATORY: No respiratory distress Clear to auscultation bilaterally with no rhonchi wheezing or rales. CARDIOVASCULAR: Regular rate and rhythm without murmurs rubs or gallops. ABDOMINAL: Soft, nontender, nondistended, no rebound or guarding MUSCULOSKELETAl: Moves all extremities. No clubbing, cyanosis or edema. Tender to palpation left anterior lateral shoulder pain with flexion abduction greater than 45 degrees tenderness over the left posterior elbow pain with full extension of the elbow no tenderness of the left wrist radial pulse 2+ neurovascular intact no tenderness of the right upper extremity in the bilateral lower extremities NEUR
[2022-04-02 04:42] VITALS: BP 143/96; PULSE 64; RESP 16; O2SAT 96
== END 2022-04-02 04:42 | disposition home or self-care (01) ==
PROVIDERS: Emergency Provider Emergency Medicine; PCP Family Medicine Adolescent Medicine
DX: S40.012A Contusion of left shoulder, initial encounter (principal); S50.02XA Contusion of left elbow, initial encounter; S00.93XA Contusion of unspecified part of head, initial encounter; S16.1XXA Strain of muscle, fascia and tendon at neck level, initial encounter; W01.0XXA Fall on same level from slipping, tripping and stumbling without subsequent striking against object, initial encounter; J44.9 Chronic obstructive pulmonary disease, unspecified; M32.9 Systemic lupus erythematosus, unspecified; G35 Multiple sclerosis; M35.00 Sjogren syndrome, unspecified; K76.0 Fatty (change of) liver, not elsewhere classified; I70.0 Atherosclerosis of aorta; Z87.891 Personal history of nicotine dependence; Z79.82 Long term (current) use of aspirin; Z79.51 Long term (current) use of inhaled steroids
CPT/HCPCS: 70450; 72125; 73000; 73030; 73080; 99284; A4565; A9270

== ENCOUNTER 2023-01-24 12:24 | Emergency (ER) | payer OTHER, MEDICARE, SELFPAY ==
[2023-01-24] VITALS (31 sets, daily range): BP systolic 105–154; BP diastolic 60–97; PULSE 53–67; RESP 8–19; TEMP 36.6; O2SAT 94–100
--- NOTE | ~2023-01-24 | XR_ITS ---
EXAMINATION: XR chest 1V portable 01/24/2023 13:58 INDICATION: Weakness PROCEDURE: AP portable chest COMPARISON: Comparison to multiple prior studies sequentially, with oldest reviewed study dated 05/05. FINDINGS: The lungs are clear. The cardiomediastinal silhouette is within normal limits. There are no pleural effusions. There is no pneumothorax suspected. IMPRESSION: 1: NO ACUTE CARDIOPULMONARY DISEASE. Reviewed, dictated and finalized at location A.
--- NOTE | ~2023-01-24 | CT_ITS ---
EXAMINATION: CT brain wo con DATE: 01/24/2023 15:23 INDICATION: Fall, head trauma. TECHNIQUE: Computed tomography (CT) of the head was performed without intravenous contrast. The mA wa s adjusted according to patient size. Iterative reconstruction technique was employed. Exam dose: 60 5.33 mGy-cm total exam DLP. COMPARISON: 04/02/2022 CT brain FINDINGS: Bilateral vertebral artery and bilateral carotid siphon internal carotid artery calcificati ons. There is nonspecific diminished attenuation of the cerebral white matter, likely due to chronic small vessel ischemic changes. No intracranial mass lesion or hemorrhage or cerebrovascular accident is evident. No midline shift or mass effect. Normal ventricular size. No subdural or epidural hematoma. The mastoid air cells and paranasal sinuses are normally developed and aerated. Bilateral hyperostosi s frontalis interna, not likely of any clinical significance. No skull fracture or bone destruction is detected. IMPRESSION: No skull fracture or acute intracranial finding Reviewed, dictated and finalized at Location A. Reviewed, dictated and finalized at location B.
--- NOTE | 2023-01-24 13:27 | ECG_ITS ---
Measurements Intervals [place] Rate: 52 P: 20 NC: 155 QRS: 2 QRSD: 80 T: 14 QT: 426 QTc: 397 Interpretive Statements SINUS BRADYCARDIA LOW QRS VOLTAGE IN PRECORDIAL LEADS CONSIDER INFERIOR INFARCT, AGE INDETERMINATE ANTEROSEPTAL INFARCT, AGE INDETERMINATE BORDERLINE ST-T WAVE ABNORMALITY- ANTEROLATERAL LEADS ABNORMAL ECG COMPARED TO ECG 10/07/2020 08:40:05 NO SIGNIFICANT CHANGES Electronically Signed On 01-24-2023 13:41:15 CDT by Eduardo Sanchez D.O.
[2023-01-24 13:48] LABS: Basophils Absolute Auto 0.1 K/mm3 (0.0-0.1); Basophils Percent Auto 0.7 % (0.2-1.2); Eosinophils Absolute Auto 0.2 K/mm3 (0-0.3); Eosinophils Percent Auto 1.9 % (0-4.4); Hematocrit 46.7 % (37.0-47.0); Hemoglobin 15.8 g/dL (12.0-15.0); Immature Granulocyte Absolute 0.03 K/mm3 (0.00-0.031); Immature Granulocyte Percent A 0.3 % (0-0.5); Immature Platelet Fraction Pct 16.6 % (0.9-11.2); Lymphocytes Absolute Auto 1.93 K/mm3 (0.9-3.2); Lymphocytes Percent Auto 21.7 % (18.3-44.2); Mean Corpuscular HGB Conc 33.8 g/dl (32-36); Mean Corpuscular Hemoglobin 34.1 pg (26-34); Mean Corpuscular Volume 100.9 fl (80-100); Mean Platelet Volume 13.6 fl (7.4-10.4); Monocytes Absolute Auto 0.6 K/mm3 (0.1-0.6); Monocytes Percent Auto 6.4 % (2.6-8.5); Neutrophils Absolute Auto 6.1 K/mm3 (1.3-6.7); Platelet Count Result 196 k/mm3 (150-375); Red Blood Count 4.63 M/mm3 (4.2-5.4); Red Cell Distribution Width 14.5 % (11.5-14.5); White Blood Count 8.9 K/mm3 (4.5-10.0)
[2023-01-24 13:58] LABS: Appearance Urine Clear (Clear); Bilirubin Urine Negative (Negative); Blood Urine Negative (Negative); Color Urine Yellow (Yellow); Glucose Urine UA Negative (Negative); Ketones Urine Negative (Negative); Leukocyte Esterase Ur Negative LEU/UL (Negative); Nitrate Urine Negative (Negative); Protein Urine Negative (Negative); Urobilinogen Urine 0.2 mg/dL (<2.0); pH Urine 6.5 (5.0-9.0)
[2023-01-24 14:04] LABS: Add Urine Microscopic? NO
[2023-01-24 14:41] LABS: Alanine Aminotransferase 31 U/L (6-35); Albumin Level 3.8 g/dL (3.5-5.1); Alkaline Phosphatase 130 U/L (38-126); Anion Gap 8 mmol/L (8-16); Aspartate Amino Transferase 29 U/L (14-36); Bilirubin,Total 0.4 mg/dL (0.2-1.3); Blood Urea Nitrogen 19 mg/dL (7-17); Calcium 8.8 mg/dL (8.4-10.2); Carbon Dioxide 24 mmol/L (22-30); Chloride 107 mmol/L (98-107); Estimated CRCL calculation 66 ml/min; Estimated Glomerular Filt Rate > 60; Glucose 93 mg/dL (65-110); Potassium 4.7 mmol/L (3.4-5.0); Sodium 139 mmol/L (137-145)
--- NOTE | 2023-01-24 15:10 | ED.GENADULT ---
HPI - General Adult General Chief complaint: Weakness Stated complaint: fall/gerardo Time Seen by Provider: 01/24/23 13:52 History of Present Illness HPI narrative: 57-year-old female presented emergency department for evaluation of generalized fatigue. Patient does have history of MS but denies any focal numbness or weakness. Patient states she did have a fall this morning and does have an associated headache. Patient states he is also having some left armpit pain. Related Data Home Medications Medication Instructions Recorded Confirmed omeprazole magnesium 20 mg 20 mg PO DAILY 09/18/19 12/18/21 tablet,delayed release (Prilosec OTC) solifenacin 10 mg tablet 10 mg PO DAILY 09/18/19 12/18/21 aspirin 81 mg tablet 81 mg PO DAILY 10/06/20 12/18/21 docusate sodium 50 mg capsule 50 mg PO BID 10/06/20 12/18/21 (Stool Softener) Allergies Allergy/AdvReac Type Severity Reaction Status Date / Time No Known Allergies Allergy Verified 09/14/22 14:30 Review of Systems Review of Systems: All systems reviewed & are unremarkable except as noted in HPI and below PMFSH Past Medical History Medical History Aortic atherosclerosis COPD (chronic obstructive pulmonary disease) pulmonary function test 05/09/2019 Hepatic steatosis Multiple sclerosis Obesity Sjogrens syndrome SLE (systemic lupus erythematosus) Surgical History Surgical History History of carpal tunnel surgery of left wrist History of cholecystectomy History of total hysterectomy Hx of cystoscopy Family History Family History (Updated 04/06/22 @ 16:15 by Lucas Gonzalez MA) Father Diabetes mellitus History of multiple strokes Pacemaker Hypertension Liver cancer Heart problem Mother Hypertension History of multiple strokes Diabetes mellitus Other Alzheimer disease Bladder cancer Heart disease Hypothyroid Social History Social History Smoking packs per day: 0.5 Smoking cigarettes per day: 10.0 Years smoked: 5 Smoking pack-years: 2.50 Smoking status: Former smoker Tobacco type: cigarettes Second hand tobacco smoke exposure: No Smoking end date: 07/04/90 Alcohol intake: never Substance use: never Substance use type: does not use Living arrangements: with family Occupation/Education: retired Gender identity (if verbalized by the patient): Female Sexual Orientation (if Verbalized by the Patient): Straight or Heterosexual Spiritual care concerns: No Agree to blood products: Yes Exam Narrative: APPEARANCE: Well appearing, no pain, no distress, well-nourished. HEAD: normocephalic, atraumatic. EYES: PERRLA/EOMI, conjunctivae clear. NOSE: Normal no drainage EARS:TMS clear with good light reflex. THROAT: Pharynx clear, no exudate. NECK: Supple. No adenopathy, no masses. RESPIRATORY: Airway patent, respirations nonlabored. Clear to auscultation bilaterally, no rales, rhonchi, wheezing. CARDIOVASCULAR: Regular rate and rhythm without murmurs rubs or gallops. ABDOMINAL: Soft, nontender, nondistended, normal bowel sounds MUSCULOSKELETAL: Moves all extremities. Strength/ROM intact, No edema, No calf tenderness. NEURO: Alert. Cranial nerves II through XII intact. Grossly intact SKIN: Warm, dry. Normal Color. No axillary tenderness no palpated lymphadenopathy and no underlying cellulitis Course Course Emergency Course: 57-year-old female presented ED for evaluation of increased generalized weakness. Patient was afebrile with no leukocytosis and does have a stable hemoglobin of 15.8. Patient has a CMP with no significant abnormalities. UA shows no evidence of infection, patient was negative for influenza RSV and for COVID. Head CT showed no acute intracranial normalities and chest x-ray shows no acute cardiopulmonary normality. No u
[2023-01-24] MEDS: SODIUM CHLORIDE 0.9% IV 1,000 ML 999 ML IV CONT (15:34)
[2023-01-24] MEDS: HYDROmorphone HCL INJ (*CRX) 1 MG/ML SYR 0.5 MG IV PUSH (15:34)
[2023-01-24] MEDS: ONDANSETRON INJ 4 MG/2 ML VIAL IV PUSH (15:35)
[2023-01-24 15:54] LABS: Influenza A QL RT-PCR Negative (Negative); Influenza B QL RT-PCR Negative (Negative); RSV RNA, RT-PCR Negative (Negative); SARS-CoV-2 RNA PCR Negative (Negative)
== END 2023-01-24 18:09 | disposition home or self-care (01) ==
PROVIDERS: Emergency Provider Emergency Medicine; PCP Family Medicine Adolescent Medicine
DX: R53.1 Weakness (principal); S09.90XA Unspecified injury of head, initial encounter; Z20.822 Contact with and (suspected) exposure to COVID-19; G35 Multiple sclerosis; J44.9 Chronic obstructive pulmonary disease, unspecified; I70.0 Atherosclerosis of aorta; M35.00 Sjogren syndrome, unspecified; M32.9 Systemic lupus erythematosus, unspecified; E66.9 Obesity, unspecified; Z68.34 Body mass index [BMI] 34.0-34.9, adult; Z87.891 Personal history of nicotine dependence; Z90.49 Acquired absence of other specified parts of digestive tract; Z90.710 Acquired absence of both cervix and uterus; Z79.82 Long term (current) use of aspirin; W19.XXXA Unspecified fall, initial encounter
CPT/HCPCS: 36415; 70450; 71045; 80053; 81003; 85025; 85055; 87637; 93005; 96361; 96374; 96375; 99284; J1170; J2405; J7030

== ENCOUNTER 2023-09-22 13:06 | Outpatient (CLI) | payer OTHER, MEDICARE, SELFPAY ==
[2023-09-22 17:42] LABS: Alanine Aminotransferase 46 U/L (6-35); Alkaline Phosphatase 139 U/L (38-126); Anion Gap 8 mmol/L (8-16); Aspartate Amino Transferase 41 U/L (14-36); Bilirubin,Total 0.9 mg/dL (0.2-1.3); Blood Urea Nitrogen 19 mg/dL (7-17); Calcium 9.2 mg/dL (8.4-10.2); Carbon Dioxide 26 mmol/L (22-30); Chloride 105 mmol/L (98-107); Cholesterol 178 mg/dL (0-200); Estimated Glomerular Filt Rate 57; Glucose 89 mg/dL (65-110); HDL Direct 39 mg/dL; Potassium 4.1 mmol/L (3.4-5.0); Sodium 139 mmol/L (137-145); Triglycerides 189 mg/dL (<150)
[2023-09-22 17:54] LABS: LDL Cholesterol Direct 113 mg/dL
[2023-09-22 23:31] LABS: Vitamin B12 > 1000.0 pg/mL (239-931)
== END 2023-09-22 13:07 | disposition home or self-care (01) ==
PROVIDERS: Nurse Practitioner Family; PCP Family Medicine Adolescent Medicine; Visit Provider Internal Medicine Hematology & Oncology
DX: E78.5 Hyperlipidemia, unspecified (principal); G35 Multiple sclerosis; K76.0 Fatty (change of) liver, not elsewhere classified; M62.81 Muscle weakness (generalized)
CPT/HCPCS: 36415; 80053; 80061; 82607; 84443

== ENCOUNTER 2023-11-05 16:57 | Emergency (ER) | payer OTHER, SELFPAY ==
--- NOTE | ~2023-11-05 | CT_ITS ---
EXAMINATION: CT abdomen pelvis w con DATE: 11/05/2023 19:05 INDICATION: R flank pain TECHNIQUE: Computed tomography (CT) of the abdomen and pelvis was performed with 100 mL Omnipaque-350 intravenous contrast. Automated exposure control and iterative reconstruction technique were employe d. The dose-length product was 1372.82 mGy-cm. COMPARISON: 06/09/2017. FINDINGS: Lower thorax: Dependent atelectasis. Mild coronary artery calcification. Liver: Diffuse fatty infiltration. Biliary/Gallbladder: Gallbladder is absent. No bile duct dilation. Pancreas: No mass or duct dilation. Spleen: Normal. Adrenals:No mass. Kidneys: Bilateral nonobstructing calculi measuring up to 4 mm on the right and 3 mm on the left. No hydronephrosis or suspicious mass. GI tract: Mild distal esophageal and gastric wall edema. No small or large bowel dilation. Normal tray endix. Diverticulosis without diverticulitis. Mesentery/Peritoneum: No ascites, mass, or free air. Retroperitoneum: No mass. Pelvis: Absent uterus. Ovaries not identified. Normal urinary bladder. Soft Tissues: Small fat-containing umbilical and periumbilical hernias Bones: No acute osseous finding. IMPRESSION: Mild esophagitis/gastritis. Hepatic steatosis. Otherwise unremarkable CT abdomen and pelvis findings. Reviewed, dictated and finalized at location K.
[2023-11-05 17:05] VITALS: BP 130/72; PULSE 61; RESP 18; TEMP 36.7; O2SAT 96
--- NOTE | 2023-11-05 17:44 | ED.BACK ---
HPI - Back Pain/Injury General Chief Complaint: Back Pain/Injury Stated Complaint: right flack pain Time Seen by Provider: 11/05/23 17:41 Source: patient Mode of arrival: ambulatory Limitations: no limitations History of Present Illness HPI Narrative: This is a 50-year-old female who presents to the ED with chief complaint of right flank pain x2 weeks. Reports this worsening over the last couple of days. Patient describes as a dull pain but now sharp. Reports intermittent nausea and dizziness as well. Patient reports that she passed out today from the pain. Reports that she took a meclizine and [place] about 1400 today. Patient states that the pain just became sharply worse today. Denies numbness, weakness, low back pain, upper back pain, chest pain, shortness of breath, cough, problems with bowel movements or urination. Status post cholecystectomy many years ago. Related Data Home Medications Medication Instructions Recorded Confirmed omeprazole magnesium 20 mg 20 mg PO DAILY 09/18/19 09/07/23 tablet,delayed release (Prilosec OTC) solifenacin 10 mg tablet 10 mg PO DAILY 09/18/19 09/07/23 aspirin 81 mg tablet 81 mg PO DAILY 10/06/20 09/07/23 docusate sodium 50 mg capsule 50 mg PO BID 10/06/20 09/07/23 (Stool Softener) Allergies Allergy/AdvReac Type Severity Reaction Status Date / Time No Known Allergies Allergy Verified 09/07/23 09:04 Review of Systems Review of Systems: All systems as dictated in HPI [facility] Past Medical History Medical History Aortic atherosclerosis COPD (chronic obstructive pulmonary disease) pulmonary function test 05/09/2019 Hepatic steatosis Multiple sclerosis Obesity Sjogrens syndrome SLE (systemic lupus erythematosus) Surgical History Surgical History History of carpal tunnel surgery of left wrist History of cholecystectomy History of total hysterectomy Hx of cystoscopy Family History Family History Father Diabetes mellitus History of multiple strokes Pacemaker Hypertension Liver cancer Heart problem Mother Hypertension History of multiple strokes Diabetes mellitus Other Alzheimer disease Bladder cancer Heart disease Hypothyroid Social History Social History Smoking packs per day: 0.5 Smoking cigarettes per day: 10.0 Years smoked: 5 Smoking pack-years: 2.50 Smoking status: Former smoker Tobacco type: cigarettes Second hand tobacco smoke exposure: No Smoking end date: 07/04/90 Alcohol intake: never Substance use: never Substance use type: does not use Living arrangements: with family Occupation/Education: retired Gender identity (if verbalized by the patient): Female Sexual Orientation (if Verbalized by the Patient): Straight or Heterosexual Spiritual care concerns: No Agree to blood products: Yes Exam Narrative: GENERAL: Well-appearing, well-nourished, and in no acute distress. HEAD: Normocephalic, atraumatic. EYES: PERRLA and EOMI. ENT: Nares clear, no rhinorrhea or epistaxis. Mucous membranes moist. Oropharynx without tonsillar hypertrophy exudate or other lesions. NECK: Supple. No adenopathy or masses. CHEST: No respiratory distress. Clear to auscultation. No wheezes rales or rhonchi HEART: Regular rate and rhythm. No murmur heard. Normal peripheral pulses. ABDOMEN: Right flank tenderness present. (+) epigastric tenderness. Negative McBurney's point, negative Wall sign Soft, nondistended, normal active bowel sounds. MSK: Normal range of motion. No edema. SKIN: Warm, dry, no rash. NEURO: Alert and oriented x3. No focal deficits. PSYCH: Normal mood and affect. Course Vital Signs Vital signs: Vital Signs Temperature 98.1 F 11/05/23 17:0
[2023-11-05] MEDS: ONDANSETRON INJ 4 MG/2 ML VIAL IV PUSH (18:28)
[2023-11-05] MEDS: MORPHINE SULFATE (*CRX) 4 MG/ML INJ IV PUSH (18:29)
[2023-11-05 18:33] LABS: Appearance Urine Clear (Clear); Bilirubin Urine Negative (Negative); Blood Urine Negative (Negative); Color Urine Yellow (Yellow); Glucose Urine UA Negative (Negative); Ketones Urine Negative (Negative); Leukocyte Esterase Ur Negative LEU/UL (Negative); Nitrate Urine Negative (Negative); Protein Urine Negative (Negative); Specific Grav Ur 1.007 (1.001-1.035); Urobilinogen Urine 0.2 mg/dL (<2.0)
[2023-11-05 18:33] LABS: Basophils Absolute Auto 0.1 K/mm3 (0.0-0.1); Basophils Percent Auto 1.2 % (0.2-1.2); Eosinophils Absolute Auto 0.3 K/mm3 (0-0.3); Eosinophils Percent Auto 3.8 % (0-4.4); Hematocrit 44.9 % (37.0-47.0); Immature Granulocyte Absolute 0.02 K/mm3 (0.00-0.031); Immature Granulocyte Percent A 0.3 % (0-0.5); Immature Platelet Fraction Pct 21.6 % (0.9-11.2); Lymphocytes Absolute Auto 2.08 K/mm3 (0.9-3.2); Lymphocytes Percent Auto 30.2 % (18.3-44.2); Mean Corpuscular HGB Conc 33.4 g/dl (32-36); Mean Corpuscular Hemoglobin 33.8 pg (26-34); Mean Corpuscular Volume 101.1 fl (80-100); Mean Platelet Volume 14.4 fl (7.4-10.4); Monocytes Absolute Auto 0.7 K/mm3 (0.1-0.6); Neutrophils Absolute Auto 3.8 K/mm3 (1.3-6.7); Neutrophils Percent Auto 54.5 % (45.5-73.1); Platelet Count Result 123 k/mm3 (150-375); Red Blood Count 4.44 M/mm3 (4.2-5.4); Red Cell Distribution Width 13.9 % (11.5-14.5); White Blood Count 6.9 K/mm3 (4.5-10.0)
[2023-11-05 18:35] VITALS: BP 126/61; PULSE 58; RESP 18; O2SAT 100
--- NOTE | 2023-11-05 18:36 | PC.NURSE ---
Pt assisted to BSC tolerated well. Voided without difficulty.
[2023-11-05 18:45] LABS: Alanine Aminotransferase 36 U/L (6-35); Albumin Level 3.9 g/dL (3.5-5.1); Alkaline Phosphatase 139 U/L (38-126); Anion Gap 7 mmol/L (4-12); Aspartate Amino Transferase 36 U/L (14-36); Bilirubin,Total 0.8 mg/dL (0.2-1.3); Blood Urea Nitrogen 14 mg/dL (7-17); CRP 0.7 mg/dL (<1.0); Calcium 9.6 mg/dL (8.4-10.2); Carbon Dioxide 26 mmol/L (22-30); Chloride 108 mmol/L (98-107); Estimated CRCL calculation 60 ml/min; Estimated Glomerular Filt Rate 57; Glucose 99 mg/dL (65-110); Lipase 93 U/L (23-300); Sodium 141 mmol/L (137-145)
[2023-11-05 18:54] LABS: Add Urine Microscopic? NO
--- NOTE | 2023-11-05 19:13 | PC.NURSE ---
Assumed care of pt from ANAND Murrell at this time. Pt resting comfortably in bed. Call light within reach.
[2023-11-05 20:32] VITALS: BP 126/61; PULSE 60; RESP 19; TEMP 36.6; O2SAT 95
== END 2023-11-05 20:33 | disposition home or self-care (01) ==
PROVIDERS: Emergency Provider Physician Assistant; PCP Family Medicine Adolescent Medicine
DX: R10.9 Unspecified abdominal pain (principal); G35 Multiple sclerosis; I70.0 Atherosclerosis of aorta; J44.9 Chronic obstructive pulmonary disease, unspecified; E66.9 Obesity, unspecified; Z68.34 Body mass index [BMI] 34.0-34.9, adult; K76.0 Fatty (change of) liver, not elsewhere classified; M35.00 Sjogren syndrome, unspecified; M32.9 Systemic lupus erythematosus, unspecified; Z87.891 Personal history of nicotine dependence; Z90.49 Acquired absence of other specified parts of digestive tract; Z90.710 Acquired absence of both cervix and uterus; Z79.82 Long term (current) use of aspirin; K20.90 Esophagitis, unspecified without bleeding; K29.70 Gastritis, unspecified, without bleeding
CPT/HCPCS: 36415; 74177; 80053; 81003; 83690; 85025; 85055; 86140; 96374; 96375; 99284; J2270; J2405; Q9967

== ENCOUNTER 2024-01-06 19:55 | Emergency (ER) | payer OTHER, SELFPAY ==
[2024-01-06 20:26] VITALS: BP 133/75; PULSE 65; RESP 16; TEMP 36.5; O2SAT 97
--- NOTE | 2024-01-07 00:28 | ED.GENADULT ---
HPI - General Adult General Chief complaint: Back Pain/Injury Stated complaint: back pain Time Seen by Provider: 01/06/24 23:56 Source: patient Limitations: no limitations History of Present Illness HPI narrative: Patient is a 58-year-old female presents to the emergency department complaining of epigastric and upper back discomfort for the past approximately 6 weeks that comes and goes, worse with eating, has not seen a merchandise marker about this, notes that she was recently seen by primary care physician and was treated for an MS flare with transverse myelitis with steroids in the got better however she is still having this discomfort. Patient has been taking omeprazole as prescribed. Patient denies difficulty breathing, fever, cough, vomiting, nausea, diarrhea, recent injuries, recent illness, numbness, weakness, rash. Patient has never had EGD done 4. Patient is that when she came here for this recently she was just discharged her primary care physician's office and still has not gone away. Related Data Home Medications Medication Instructions Recorded Confirmed omeprazole magnesium 20 mg 20 mg PO DAILY 09/18/19 11/10/23 tablet,delayed release (Prilosec OTC) aspirin 81 mg tablet 81 mg PO DAILY 10/06/20 11/10/23 docusate sodium 50 mg capsule 50 mg PO BID 10/06/20 11/10/23 (Stool Softener) Allergies Allergy/AdvReac Type Severity Reaction Status Date / Time No Known Allergies Allergy Verified 01/06/24 19:55 Review of Systems Review of Systems: A 10 system review of systems was completed on the patient and is negative except for what is stated in the HPI. Nursing and ancillary documentation was reviewed. [facility] Past Medical History Medical History Aortic atherosclerosis COPD (chronic obstructive pulmonary disease) pulmonary function test 05/09/2019 Hepatic steatosis Multiple sclerosis Obesity Sjogrens syndrome SLE (systemic lupus erythematosus) Surgical History Surgical History History of carpal tunnel surgery of left wrist History of cholecystectomy History of total hysterectomy Hx of cystoscopy Family History Family History Father Diabetes mellitus History of multiple strokes Pacemaker Hypertension Liver cancer Heart problem Mother Hypertension History of multiple strokes Diabetes mellitus Other Alzheimer disease Bladder cancer Heart disease Hypothyroid Social History Social History Smoking packs per day: 0.5 Smoking cigarettes per day: 10.0 Years smoked: 5 Smoking pack-years: 2.50 Smoking status: Former smoker Tobacco type: cigarettes Second hand tobacco smoke exposure: No Smoking end date: 07/04/90 Alcohol intake: never Substance use: never Substance use type: does not use Living arrangements: with family Occupation/Education: retired Gender identity (if verbalized by the patient): Female Sexual Orientation (if Verbalized by the Patient): Straight or Heterosexual Spiritual care concerns: No Agree to blood products: Yes Comments At time of signature, I have reviewed and agree with nursing past medical, surgical, social and family history unless otherwise noted. Please see the nursing chart for further information. There is no relevant family history pertinent to the presenting complaint. Exam Narrative: CONST: No acute distress. Well nourished. HENMT: Head is normocephalic and atraumatic. Moist mucous membranes. EYES: No conjunctival icterus, injection, or pallor. PERRL. NECK: No meningeal signs. RESP: Able to speak in full sentences. Normal respiratory effort. CTAB. CARDIO: Regular rate. Regular rhythm. 2+ radial pulses bilaterally. GI: Nondistended. No tenderness to palpation.
[2024-01-07] MEDS: BELLADONNA ALK/PHENOB ELIX 10 ML, MAG HYDROX/ALUMINUM HYD/SIMETH 30 ML, LIDOCAINE HCL 2... PO (00:29)
--- NOTE | 2024-01-07 00:29 | ECG_ITS ---
Test Date: 2024-01-07 00:58:26 Measurements Intervals [place] Rate: 56 P: 15 MN: 163 QRS: -5 QRSD: 85 T: 6 QT: 428 QTc: 413 Interpretive Statements SINUS BRADYCARDIA POSSIBLE ANTERIOR MYOCARDIAL INFARCTION , OF INDETERMINATE AGE INFERIOR MYOCARDIAL INFARCTION , PROBABLY OLD BORDERLINE ST-T WAVE ABNORMALITY- ANTEROLATERAL LEADS BASELINE ARTIFACT- I, II, III, AVR, AVL ABNORMAL ECG No previous ECG available for comparison Electronically Signed On 01-07-2024 07:37:21 CDT by Eduardo Sanchez D.O.
== END 2024-01-07 01:23 | disposition home or self-care (01) ==
PROVIDERS: Emergency Provider Student in an Organized Health Care Education/Training Program; PCP Family Medicine Adolescent Medicine
DX: K20.90 Esophagitis, unspecified without bleeding (principal); G35 Multiple sclerosis; I70.0 Atherosclerosis of aorta; J44.9 Chronic obstructive pulmonary disease, unspecified; M35.00 Sjogren syndrome, unspecified; M32.9 Systemic lupus erythematosus, unspecified; E66.9 Obesity, unspecified; Z68.34 Body mass index [BMI] 34.0-34.9, adult; Z87.891 Personal history of nicotine dependence; Z90.49 Acquired absence of other specified parts of digestive tract; Z90.710 Acquired absence of both cervix and uterus; R94.31 Abnormal electrocardiogram [ECG] [EKG]; R00.1 Bradycardia, unspecified
CPT/HCPCS: 93005; 99283; A9270

== ENCOUNTER 2024-01-29 10:32 | Emergency (ER) | payer OTHER, SELFPAY ==
[2024-01-29] VITALS (32 sets, daily range): BP systolic 98–139; BP diastolic 51–92; PULSE 54–78; RESP 12–28; TEMP 36.7; O2SAT 94–100
--- NOTE | ~2024-01-29 | CT_ITS ---
CT brain wo con Ordering provider: Bao Rogel MD History: 58 years Female with . syncope . Comparison: January 24, 2023 Technique: CT of the head without contrast. Radiation reduction technique utilized. The dose-length product was 605.33 mGy-cm FINDINGS: BRAIN PARENCHYMA AND CSF SPACES: No midline shift, mass effect or hemorrhage. The brain parenchyma a nd CSF spaces are otherwise normal. VISUALIZED PARANASAL SINUSES: Well aerated. MASTOIDS: Well aerated. BONES: The bones appear intact. SOFT TISSUES: Visualized nasopharynx is normal. Superficial soft tissues are normal. IMPRESSION: No acute intracranial findings. Reviewed, dictated and finalized at location A.
--- NOTE | ~2024-01-29 | CT_ITS ---
EXAMINATION: CTA chest PE protocol DATE: 01/29/2024 12:15 INDICATION: Syncopal episode, sternal chest pain, lower extremity swelling. Elevated d-dimer. TECHNIQUE: Computed tomography angiography (CTA) of the chest was performed with 100 mL Omnipaque-350 intravenous contrast timed to evaluate the pulmonary arteries. Coronal maximum intensity projection 3D-reconstructions were created by the technologist. Automated exposure control and iterative reconst ruction technique were employed. Exam dose: 809.30 mGy-cm total exam DLP. COMPARISON: 01/29/2024 AP and lateral chest 3T chest FINDINGS: There is diagnostic contrast enhancement of the pulmonary disease and no apparent pulmonary embolism. Loop recorder device is noted in the anterior left chest. No thoracic aortic aneurysm or dissection is detected. Cardiomegaly. No pericardial or pleural effusion. Normal morphology of the adrenal glands. Status post cholecystectomy. Small calcification within an approximately 6 x 6.7 mm hypoattenuating lesion of the right lobe of th yroid gland. Normal size and relatively homogeneous enhancement of the thyroid gland is noted otherwi se. There is mild discoid atelectasis or less likely scarring in the lingula and the lower lobes, left gr eater than right. Extensive hazy density of the lung rao, somewhat greater in the dependent aspect of the upper and lower lobes, suggest small airways disease and/or atelectasis. Differential diagnosis includes pneumo jenna. No suspicious osteolytic or osteoblastic lesions are noted. IMPRESSION: No evidence of pulmonary embolism Extensive haziness of the lung rao, greater in the dependent aspect of the upper and lower lobes, suggesting small airways disease and/or atelectasis; pneumonia is not excluded Mild discoid atelectasis or less likely scarring in the lingula and both lower lobes, left greater th an right Cardiomegaly Status post cholecystectomy Reviewed, dictated and finalized at Location A. Reviewed, dictated and finalized at location J. IMPRESSION: No evidence of pulmonary embolism Extensive haziness of the lung rao, greater in the dependent aspect of the u pper and lower lobes, suggesting small airways disease and/or atelectasis; pneu monia is not excluded Mild discoid atelectasis or less likely scarring in the lingula and both lower lobes, left greater than right Cardiomegaly Status post cholecystectomy
--- NOTE | ~2024-01-29 | XR_ITS ---
XR chest 2V DATE: 01/29/2024 10:55 INDICATION: Syncope TECHNIQUE: AP and lateral views COMPARISON: 01/24/2023 portable AP chest FINDINGS: Loop recorder device overlies the left breast. Normal heart size. No hilar or mediastinal e nlargement. Mild atelectasis is suggested in the lower lung zones, left greater than right. The lungs otherwise a ppear clear. No pleural effusion or pulmonary vascular congestion or pneumothorax is detected. Surgical clips, upper abdomen, due to cholecystectomy. IMPRESSION: Mild atelectasis in the lower lung zones Status post cholecystectomy Reviewed, dictated and finalized at location J.
--- NOTE | 2024-01-29 10:40 | ECG_ITS ---
Test Date: 2024-01-29 10:41:47 Measurements Intervals [place] Rate: 56 P: 9 MA: 152 QRS: -4 QRSD: 89 T: 1 QT: 431 QTc: 420 Interpretive Statements SINUS BRADYCARDIA DELAYED PRECORDIAL R/S TRANSITION INFERIOR MYOCARDIAL INFARCTION , PROBABLY OLD BASELINE ARTIFACT- I, II, AVR, AVL ABNORMAL ECG Compared to ECG 01/07/2024 00:58:26 No significant changes Electronically Signed On 01-29-2024 12:43:41 CDT by Eduardo Sacnhez D.O.
[2024-01-29 10:48] LABS: Basophils Absolute Auto 0.1 K/mm3 (0.0-0.1); Basophils Percent Auto 0.5 % (0.2-1.2); Eosinophils Absolute Auto 0.1 K/mm3 (0-0.3); Eosinophils Percent Auto 0.9 % (0-4.4); Hematocrit 45.3 % (37.0-47.0); Hemoglobin 15.2 g/dL (12.0-15.0); Immature Granulocyte Absolute 0.16 K/mm3 (0.00-0.031); Immature Granulocyte Percent A 1.2 % (0-0.5); Immature Platelet Fraction Pct 16.8 % (0.9-11.2); Lymphocytes Absolute Auto 1.75 K/mm3 (0.9-3.2); Lymphocytes Percent Auto 13.4 % (18.3-44.2); Mean Corpuscular HGB Conc 33.6 g/dl (32-36); Mean Corpuscular Hemoglobin 34.5 pg (26-34); Mean Platelet Volume 13.2 fl (7.4-10.4); Monocytes Absolute Auto 0.7 K/mm3 (0.1-0.6); Neutrophils Absolute Auto 10.3 K/mm3 (1.3-6.7); Platelet Count Result 150 k/mm3 (150-375); Red Cell Distribution Width 14.1 % (11.5-14.5); White Blood Count 13.1 K/mm3 (4.5-10.0)
[2024-01-29 10:57] LABS: Alanine Aminotransferase 31 U/L (6-35); Albumin Level 4.1 g/dL (3.5-5.1); Alkaline Phosphatase 104 U/L (38-126); Anion Gap 9 mmol/L (4-12); Aspartate Amino Transferase 30 U/L (14-36); Bilirubin,Total 0.7 mg/dL (0.2-1.3); Blood Urea Nitrogen 24 mg/dL (7-17); Calcium 8.8 mg/dL (8.4-10.2); Carbon Dioxide 27 mmol/L (22-30); Chloride 104 mmol/L (98-107); Estimated CRCL calculation 57 ml/min; Estimated Glomerular Filt Rate 51; Glucose 122 mg/dL (65-110); Sodium 140 mmol/L (137-145)
--- NOTE | 2024-01-29 11:01 | ED.DIZZY ---
HPI - Dizziness General Chief Complaint: Syncope Stated Complaint: multiple complaints Time Seen by Provider: 01/29/24 10:35 History of Present Illness HPI Narrative: 58-year-old female presenting to the emergency department for evaluation for a syncopal episode. Patient states that she has been treated for esophagitis/gastritis. Patient was taking her p.o. lidocaine this morning when she had a syncopal episode. Patient denies striking her head. Patient states she is still having some epigastric pain. Related Data Home Medications Medication Instructions Recorded Confirmed aspirin 81 mg tablet 81 mg PO DAILY 10/06/20 01/11/24 docusate sodium 50 mg capsule 50 mg PO BID 10/06/20 01/11/24 (Stool Softener) Allergies Allergy/AdvReac Type Severity Reaction Status Date / Time No Known Allergies Allergy Verified 01/29/24 10:32 Review of Systems Review of Systems: All systems reviewed & are unremarkable except as noted in HPI and below PMFSH Past Medical History Medical History Aortic atherosclerosis COPD (chronic obstructive pulmonary disease) pulmonary function test 05/09/2019 Hepatic steatosis Multiple sclerosis Obesity Sjogrens syndrome SLE (systemic lupus erythematosus) Surgical History Surgical History History of carpal tunnel surgery of left wrist History of cholecystectomy History of total hysterectomy Hx of cystoscopy Family History Family History Father Diabetes mellitus History of multiple strokes Pacemaker Hypertension Liver cancer Heart problem Mother Hypertension History of multiple strokes Diabetes mellitus Other Alzheimer disease Bladder cancer Heart disease Hypothyroid Social History Social History Smoking packs per day: 0.5 Smoking cigarettes per day: 10.0 Years smoked: 5 Smoking pack-years: 2.50 Smoking status: Former smoker Tobacco type: cigarettes Second hand tobacco smoke exposure: No Smoking end date: 07/04/90 Alcohol intake: never Substance use: never Substance use type: does not use Living arrangements: with family Occupation/Education: retired Gender identity (if verbalized by the patient): Female Sexual Orientation (if Verbalized by the Patient): Straight or Heterosexual Spiritual care concerns: No Agree to blood products: Yes Exam Narrative: APPEARANCE: Well appearing, no pain, no distress, well-nourished. HEAD: normocephalic, atraumatic. EYES: PERRLA/EOMI, conjunctivae clear. NOSE: Normal no drainage EARS:TMS clear with good light reflex. THROAT: Pharynx clear, no exudate. NECK: Supple. No adenopathy, no masses. RESPIRATORY: Airway patent, respirations nonlabored. Clear to auscultation bilaterally, no rales, rhonchi, wheezing. CARDIOVASCULAR: Regular rate and rhythm without murmurs rubs or gallops. ABDOMINAL: Epigastric tenderness to palpation MUSCULOSKELETAL: Moves all extremities. Strength/ROM intact, No edema, No calf tenderness. NEURO: Alert. Cranial nerves II through XII intact. Grossly intact SKIN: Warm, dry. Normal Color Course Course Emergency Course: Patient was offered admission for a syncopal workup but patient preferred to be discharged home. Vital Signs Vital signs: Vital Signs Temperature 98.0 F 01/29/24 10:36 Pulse Rate 58 L 01/29/24 10:36 Respiratory Rate 16 01/29/24 10:36 Blood Pressure 127/70 01/29/24 10:36 Pulse Oximetry 96 01/29/24 10:36 Oxygen Delivery Room Air 01/29/24 10:36 Temperature 98.0 F 01/29/24 10:36 Pulse Rate 64 01/29/24 16:45 Respiratory Rate 23 H 01/29/24 16:45 Blood Pressure 110/87 01/29/24 16:45 Pulse Oximetry 95 01/29/24 16:45 Oxygen Delivery Room Air 01/29/24 10:36 MDM - Dizzine
[2024-01-29] MEDS: PANTOPRAZOLE SODIUM IV 40 MG VIAL IV PUSH (11:17)
[2024-01-29 11:43] LABS: D Dimer 0.51 ug/mL (<0.48)
[2024-01-29 11:45] LABS: Troponin I < 0.012 ng/mL (0.000-0.034)
[2024-01-29 12:06] LABS: BEDSIDEPREGUCG Negative
[2024-01-29 12:24] LABS: Appearance Urine Cloudy (Clear); Bacteria Urine 1+ /hpf; Bilirubin Urine Negative (Negative); Blood Urine Negative (Negative); Color Urine Yellow (Yellow); Glucose Urine UA Negative (Negative); Ketones Urine Trace mg/dL (Negative); Leukocyte Esterase Ur Negative LEU/UL (Negative); Need Manual Microscopic Reviewed; Nitrate Urine Negative (Negative); Protein Urine Negative (Negative); RBC Urine 0-2 /hpf (0-2); Specific Grav Ur 1.021 (1.001-1.035); Squamous Epithelial Cell Urine Moderate /hpf (Few); WBC Urine 0-5 /hpf (0-3); pH Urine 5.5 (5.0-9.0)
[2024-01-29 12:26] LABS: Add Urine Microscopic? NO
[2024-01-29 13:07] LABS: Glucose Point of Care 119 mg/dl (65-105)
--- NOTE | 2024-01-29 13:54 | ECG_ITS ---
Test Date: 2024-01-29 14:02:08 Measurements Intervals [place] Rate: 54 P: 17 NE: 176 QRS: -6 QRSD: 102 T: 8 QT: 443 QTc: 422 Interpretive Statements SINUS BRADYCARDIA CONSIDER ANTERIOR INFARCT, AGE INDETERMINATE INFERIOR MYOCARDIAL INFARCTION , PROBABLY OLD ABNORMAL ECG Compared to ECG 01/29/2024 10:41:47 No significant changes Electronically Signed On 01-29-2024 15:16:04 CDT by Eduardo Sanchez D.O.
[2024-01-29] MEDS: SODIUM CHLORIDE 0.9% IV 1,000 ML 999 ML IV CONT (14:22)
[2024-01-29 14:30] LABS: Troponin I < 0.012 ng/mL (0.000-0.034)
== END 2024-01-29 17:00 | disposition home or self-care (01) ==
PROVIDERS: Emergency Provider Emergency Medicine; PCP Family Medicine Adolescent Medicine
DX: R55 Syncope and collapse (principal); G35 Multiple sclerosis; I70.0 Atherosclerosis of aorta; J44.9 Chronic obstructive pulmonary disease, unspecified; E66.9 Obesity, unspecified; Z68.37 Body mass index [BMI] 37.0-37.9, adult; M32.9 Systemic lupus erythematosus, unspecified; M35.00 Sjogren syndrome, unspecified; Z90.49 Acquired absence of other specified parts of digestive tract; Z90.710 Acquired absence of both cervix and uterus; Z87.891 Personal history of nicotine dependence; I51.7 Cardiomegaly; R00.1 Bradycardia, unspecified; R94.31 Abnormal electrocardiogram [ECG] [EKG]; R91.8 Other nonspecific abnormal finding of lung field
CPT/HCPCS: 36415; 70450; 71046; 71275; 80053; 81003; 81025; 82948; 84484; 85025; 85055; 85380; 93005; 96361; 96374; 99284; J2470; J7030; Q9967

== ENCOUNTER 2024-03-06 08:17 | Outpatient (CLI) | payer OTHER, SELFPAY ==
--- NOTE | ~2024-03-06 | XR_ITS ---
EXAMINATION: XR barium swallow w SBFT DATE: 03/06/2024 11:35 INDICATION: Dysphagia. Unspecified weight loss. TECHNIQUE: Extractor Operator Solvent Process radiograph of the abdomen and pelvis was obtained. The patient drank thick barium, g as-producing crystals, and thin barium. Fluoroscopic spot radiographs of the hypopharynx and esophagu s were obtained. Sequential radiographs of the abdomen were obtained until oral contrast was noted to be in the proximal colon. Spot fluoroscopic images of the small bowel were obtained. Fluoroscopy exp osure time was 2.6 minutes. A total of 1394 fluoroscopic images and 9 overhead radiographs were obtai viola. Total DAP was 54.4 Gycm^2. COMPARISON: None. FINDINGS: The pharynx is symmetric and without evidence of mass lesion or mucosal irregularity. The e sophagus is normal without mass or stricture. Esophageal motility is within normal limits for age. Th ere is no hiatal hernia. There was no gastroesophageal reflux with provocative maneuvers. Transit time from the stomach to proximal colon was approximately 2 hours. There is normal caliber an d mucosal fold pattern throughout the small bowel. Terminal ileum is normal. No tethering or abnorm al mass effect observed upon the small bowel with real-time fluoroscopy. IMPRESSION: 1. Unremarkable esophagram and small bowel follow-through. Reviewed, dictated and finalized at location A.
== END 2024-03-06 08:18 | disposition home or self-care (01) ==
PROVIDERS: PCP Family Medicine Adolescent Medicine; Visit Provider Nurse Practitioner Family
DX: R13.10 Dysphagia, unspecified (principal); R63.4 Abnormal weight loss
CPT/HCPCS: 74240

== ENCOUNTER 2024-03-21 02:01 | Day surgery (SDC) | payer OTHER, SELFPAY ==
[2024-02-24 11:38] VITALS: BMI 35.9
[2024-03-21 11:46] VITALS: BP 126/66; PULSE 61; RESP 18; TEMP 36.2; O2SAT 98
--- NOTE | 2024-03-21 12:13 | WPDANESEPPF ---
Anes - Initial Pre Proc Eval Procedure: Operation Date: 03/21/24 13:00 Proposed Procedures p Esophagogastroduodenoscopy - Milan Shaw MD Date/Time: 03/21/24 12:13 Surgeon: Milan Shaw MD Pre Op Diagnosis: esophagitis, dysphagia Patient Data Age: 58 Gender: F Height: 1.63 m Weight: 100 kg Last Vital Signs Temp 36.2 C L 03/21/24 11:46 Pulse 61 03/21/24 11:46 Resp 18 03/21/24 11:46 BP 126/66 03/21/24 11:46 Pulse Ox 98 03/21/24 11:46 O2 Del Method Room Air 03/21/24 11:46 Allergies Allergy/AdvReac Type Severity Reaction Status Date / Time No Known Allergies Allergy Verified 03/21/24 11:43 Home Medications Medication Instructions Recorded Confirmed Type aspirin 81 mg tablet 81 mg PO DAILY 10/06/20 03/21/24 History fluticasone fur. 100 mcg-umeclid See Rx Instructions .Route 12/28/22 03/21/24 Rx 62.5 mcg-vilant 25 mcg .COMPLEX #60 ea inhalat.powder (Trelegy Ellipta) lorazepam 1 mg tablet 1 mg PO BID PRN anxiety #60 tabs 01/06/23 03/21/24 Rx diclofenac sodium 75 mg See Rx Instructions .Route 06/22/23 03/21/24 Rx tablet,delayed release .COMPLEX #60 tabs folic acid 1 mg tablet 1 mg PO DAILY #90 tabs 07/31/23 03/21/24 Rx ergocalciferol (vitamin D2) 1,250 50,000 unit PO MONTHLY #3 caps 08/09/23 03/21/24 Rx mcg (50,000 unit) capsule (Vitamin D2) topiramate 25 mg tablet 25 mg PO HS #90 tabs 10/07/23 03/21/24 Rx clonazepam 1 mg tablet 1 mg PO QHS #30 tabs 10/16/23 03/21/24 Rx lorazepam 2 mg tablet 1 mg PO BID PRN anxiety #30 tabs 10/19/23 03/21/24 Rx pregabalin 150 mg capsule 150 mg PO TID #90 caps 10/19/23 03/21/24 Rx solifenacin 10 mg tablet 10 mg PO DAILY #90 tabs 11/10/23 03/21/24 Rx propranolol 20 mg tablet See Rx Instructions .Route 11/15/23 03/21/24 Rx .COMPLEX #180 tabs baclofen 20 mg tablet See Rx Instructions .Route 12/08/23 03/21/24 Rx .COMPLEX #90 tabs doxycycline hyclate 100 mg tablet See Rx Instructions .Route 12/08/23 03/21/24 Rx .COMPLEX #90 tabs levetiracetam 500 mg tablet See Rx Instructions .Route 12/08/23 03/21/24 Rx .COMPLEX #540 tabs methylprednisolone 4 mg tablet See Rx Instructions .Route 12/08/23 03/21/24 Rx .COMPLEX #90 tabs hydrocodone 10 mg-acetaminophen 0.5 tablet PO Q6H PRN pain #50 tabs 12/20/23 03/21/24 Rx 325 mg tablet midodrine 2.5 mg tablet See Rx Instructions .Route 12/20/23 03/21/24 Rx .COMPLEX #270 tabs metoclopramide HCl 10 mg tablet See Rx Instructions PO Q6H nausea 02/07/24 03/21/24 Rx and vomiting #30 tabs pantoprazole 40 mg tablet,delayed See Rx Instructions .Route 03/01/24 03/21/24 Rx release .COMPLEX #180 tabs sucralfate 1 gram tablet See Rx Instructions .Route 03/13/24 03/21/24 Rx .COMPLEX #120 tabs atorvastatin 40 mg tablet 40 mg PO QHS #90 tabs 03/18/24 03/21/24 Rx meclizine 25 mg tablet See Rx Instructions .Route 03/19/24 03/21/24 Rx .COMPLEX #100 tabs methotrexate sodium 2.5 mg tablet See Rx Instructions .Route 03/19/24 03/21/24 Rx .COMPLEX #39 tabs Patient hx anesthesia problems: none Family hx anesthesia problems: none Results Review: All pre-operative results and documents have been reviewed as part of the pre-operative evaluation. [facility] Past Medical History Medical History Aortic atherosclerosis COPD (chronic obstructive pulmonary disease) pulmonary function test 05/09/2019 Hepatic steatosis Multiple sclerosis Obesity Sjogrens syndrome SLE (systemic lupus erythematosus) Surgical History Surgical History History of carpal tunnel surgery of left wrist History of cholecystectomy History of total hysterectomy Hx of cystoscopy Family History Family History Father Diabetes mellitus History of multiple strokes Pacemaker Hypertension Liver cancer Heart problem
[2024-03-21] MEDS: LACTATED RINGERS 1,000 ML 150 ML IV CONT (12:30)
--- NOTE | 2024-03-21 13:05 | PM.HPGS ---
History of Present Illness History of Present Illness Consent: Risks, benefits, and alternatives have been discussed and questions answered. Patient agrees to proceed with procedure. Chief complaint: esophagitis, dysphagia Narrative: Allie Buchanan is a 58 year old female here for egd because epigastric pain, better with medical treatment Review of Systems Review of Systems: All systems reviewed & are unremarkable except as noted in HPI and below PMFSH Past Medical History Medical History Aortic atherosclerosis COPD (chronic obstructive pulmonary disease) pulmonary function test 05/09/2019 Hepatic steatosis Multiple sclerosis Obesity Sjogrens syndrome SLE (systemic lupus erythematosus) Surgical History Surgical History History of carpal tunnel surgery of left wrist History of cholecystectomy History of total hysterectomy Hx of cystoscopy Family History Family History Father Diabetes mellitus History of multiple strokes Pacemaker Hypertension Liver cancer Heart problem Mother Hypertension History of multiple strokes Diabetes mellitus Other Alzheimer disease Bladder cancer Heart disease Hypothyroid Social History Social History Smoking packs per day: 0.5 Smoking cigarettes per day: 10.0 Years smoked: 5 Smoking pack-years: 2.50 Smoking status: Former smoker Tobacco type: cigarettes Second hand tobacco smoke exposure: No Smoking end date: 07/04/90 Alcohol intake: never Substance use: never Substance use type: does not use Living arrangements: with family Occupation/Education: retired Gender identity (if verbalized by the patient): Female Sexual Orientation (if Verbalized by the Patient): Straight or Heterosexual Spiritual care concerns: No Agree to blood products: Yes Meds Home Medications and Allergies Home Medications Medication Instructions Recorded Confirmed Type aspirin 81 mg tablet 81 mg PO DAILY 10/06/20 03/21/24 History fluticasone fur. 100 mcg-umeclid See Rx Instructions .Route 12/28/22 03/21/24 Rx 62.5 mcg-vilant 25 mcg .COMPLEX #60 ea inhalat.powder (Trelegy Ellipta) lorazepam 1 mg tablet 1 mg PO BID PRN anxiety #60 tabs 01/06/23 03/21/24 Rx diclofenac sodium 75 mg See Rx Instructions .Route 06/22/23 03/21/24 Rx tablet,delayed release .COMPLEX #60 tabs folic acid 1 mg tablet 1 mg PO DAILY #90 tabs 07/31/23 03/21/24 Rx ergocalciferol (vitamin D2) 1,250 50,000 unit PO MONTHLY #3 caps 08/09/23 03/21/24 Rx mcg (50,000 unit) capsule (Vitamin D2) topiramate 25 mg tablet 25 mg PO HS #90 tabs 10/07/23 03/21/24 Rx clonazepam 1 mg tablet 1 mg PO QHS #30 tabs 10/16/23 03/21/24 Rx lorazepam 2 mg tablet 1 mg PO BID PRN anxiety #30 tabs 10/19/23 03/21/24 Rx pregabalin 150 mg capsule 150 mg PO TID #90 caps 10/19/23 03/21/24 Rx solifenacin 10 mg tablet 10 mg PO DAILY #90 tabs 11/10/23 03/21/24 Rx propranolol 20 mg tablet See Rx Instructions .Route 11/15/23 03/21/24 Rx .COMPLEX #180 tabs baclofen 20 mg tablet See Rx Instructions .Route 12/08/23 03/21/24 Rx .COMPLEX #90 tabs doxycycline hyclate 100 mg tablet See Rx Instructions .Route 12/08/23 03/21/24 Rx .COMPLEX #90 tabs levetiracetam 500 mg tablet See Rx Instructions .Route 12/08/23 03/21/24 Rx .COMPLEX #540 tabs methylprednisolone 4 mg tablet See Rx Instructions .Route 12/08/23 03/21/24 Rx .COMPLEX #90 tabs hydrocodone 10 mg-acetaminophen 0.5 tablet PO Q6H PRN pain #50 tabs 12/20/23 03/21/24 Rx 325 mg tablet midodrine 2.5 mg tablet See Rx Instructions .Route 12/20/23 03/21/24 Rx .COMPLEX #270 tabs metoclopramide HCl 10 mg tablet See Rx Instructions PO Q6H nausea 02/07/24 03/21/24 Rx and vomiting #30 tabs pantoprazole 40 mg tablet,d
[2024-03-21] MEDS: BENZOCAINE (*SP) 60 ML SPRAY CAN (HURRICAINE) 1 SPRAY MUCOUS MEM (13:11)
[2024-03-21 13:21] VITALS: BP 134/67; PULSE 61; RESP 16; O2SAT 96
[2024-03-21 13:31] VITALS: BP 124/63; PULSE 64; RESP 14; O2SAT 96
[2024-03-21 13:41] VITALS: BP 135/77; PULSE 65; RESP 16; O2SAT 96
== END 2024-03-21 13:51 | disposition home or self-care (01) ==
PROVIDERS: PCP Family Medicine Adolescent Medicine; Referring Provider Nurse Practitioner Family; Visit Provider Internal Medicine Gastroenterology
PROC: 0DJ08ZZ Inspection of Upper Intestinal Tract, Via Natural or Artificial Opening Endoscopic (ICD-10-PCS; CPT 43235; principal; 2024-03-21 13:00)
DX: K29.70 Gastritis, unspecified, without bleeding (principal); J44.9 Chronic obstructive pulmonary disease, unspecified; I70.0 Atherosclerosis of aorta; G35 Multiple sclerosis; M35.00 Sjogren syndrome, unspecified; M32.9 Systemic lupus erythematosus, unspecified; E66.9 Obesity, unspecified; Z68.37 Body mass index [BMI] 37.0-37.9, adult; Z79.82 Long term (current) use of aspirin; Z79.51 Long term (current) use of inhaled steroids; Z79.891 Long term (current) use of opiate analgesic; Z98.890 Other specified postprocedural states; Z90.49 Acquired absence of other specified parts of digestive tract; Z87.891 Personal history of nicotine dependence; Z80.0 Family history of malignant neoplasm of digestive organs; Z80.52 Family history of malignant neoplasm of bladder; Z82.49 Family history of ischemic heart disease and other diseases of the circulatory system
CPT/HCPCS: 43239; 88305; J1596; J2001; J2704; J7120

== ENCOUNTER 2024-06-30 09:03 | Emergency (ER) | payer OTHER, SELFPAY ==
--- NOTE | ~2024-06-30 | CT_ITS ---
EXAMINATION: CT cervical spine wo con DATE: 06/30/2024 09:56 INDICATION: Fall with head injury TECHNIQUE: Computed tomography (CT) of the cervical spine was performed without intravenous contrast. Automated exposure control and iterative reconstruction technique were employed. The dose-length pro duct was 589.09 mGy-cm. COMPARISON: 04/02/2022 FINDINGS: Straightening of the normal cervical lordosis. Vertebral body heights are normal. No fracture. Modera te disc height loss at C3-C4. Mild disc height loss at remaining cervical levels. Disc bulges and pos terior endplate osteophytes contributing to mild to moderate central canal stenosis at C3-C4 and mild central canal stenosis at C4-C5 through C7-T1. There is multilevel bilateral moderate to severe cerv ical facet and uncovertebral osteoarthritis. This contributes to moderate neural foraminal stenosis o n the right at C4-C5 and bilaterally at C6-C7 with mild neural foraminal stenosis throughout the greg joy of the cervical spine. Cervical soft tissues are unremarkable. Visualized apices of lungs are c lear. IMPRESSION: 1. Moderate cervical spondylosis. No acute osseous abnormality. Reviewed, dictated and finalized at location A. T CASHIER
--- NOTE | ~2024-06-30 | XR_ITS ---
EXAMINATION: XR wrist LT 2V DATE: 06/30/2024 10:00 INDICATION: Left wrist pain post fall TECHNIQUE: Posteroanterior and lateral views of the left wrist were obtained. COMPARISON: none FINDINGS: Bone alignment is normal. No fracture. Mild polyarticular osteoarthritis at the distal radioulnar, tr iscaphe, first carpometacarpal and first metacarpophalangeal joints. Soft tissues are unremarkable. IMPRESSION: 1. 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 N o acute osseous abnormality. Reviewed, dictated and finalized at location A. ESTATE AGENT IMPRESSION: 1. 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 No acute osseous abnormality.
--- NOTE | ~2024-06-30 | CT_ITS ---
EXAMINATION: CT brain wo con DATE: 06/30/2024 09:56 INDICATION: Syncopal episode with fall and head injury TECHNIQUE: Computed tomography (CT) of the head was performed without intravenous contrast. Sagittal and coronal reconstructions were performed. The mA was adjusted according to patient size. Iterative reconstruction technique was employed. The dose-length product was 605.33 mGy-cm. COMPARISON: head CT dated 01/29/2024 FINDINGS: No fracture. No acute intracranial hemorrhage, acute infarction or abnormal extra axial fluid collect ion. Ventricles are normal and symmetric. No mass/mass effect. The orbits, paranasal sinuses and mast oid air cells are normal. IMPRESSION: 1. No fracture or acute intracranial process. Reviewed, dictated and finalized at location A. S TENDER SMOKE SIGNAL
[2024-06-30 09:32] VITALS: BP 127/83; PULSE 58; RESP 16; TEMP 36.8; O2SAT 98
--- NOTE | 2024-06-30 11:42 | ED.GENADULT ---
HPI - General Adult General Chief complaint: Fall Stated complaint: syncope/fall Time Seen by Provider: 06/30/24 11:34 History of Present Illness HPI narrative: 58-year-old female presents emergency department for evaluation after having a ground level fall. Patient states that she stood up from the toilet this morning walk approximately 10 ft and then had a fall to the ground. Patient states she does suspect she had loss of consciousness. Patient is unsure if she had loss of consciousness then fell or fell and that had loss of consciousness. Patient did injure her left wrist and was complaining of head neck pain. Patient denies any other pain or injury. Patient states she does have history of orthostatic hypotension in his post did do a 5 count after she stands up, patient states she has not been doing this. Patient states she also does have MS and this often leads to ground level falls. Related Data Home Medications ?Medication ?Instructions ?Recorded ?Confirmed ?Last Taken ?Type aspirin 81 mg tablet 81 mg PO DAILY 10/06/20 05/07/24 10/03/20 History Allergies Allergy/AdvReac Type Severity Reaction Status Date / Time No Known Allergies Allergy Verified 05/07/24 15:19 Review of Systems Review of Systems: All systems reviewed & are unremarkable except as noted in HPI and below PMFSH Past Medical History Medical History Aortic atherosclerosis COPD (chronic obstructive pulmonary disease) pulmonary function test 05/09/2019 Hepatic steatosis Multiple sclerosis Obesity Sjogrens syndrome SLE (systemic lupus erythematosus) Surgical History Surgical History History of carpal tunnel surgery of left wrist History of cholecystectomy History of total hysterectomy Hx of cystoscopy Family History Family History Father Diabetes mellitus History of multiple strokes Pacemaker Hypertension Liver cancer Heart problem Mother Hypertension History of multiple strokes Diabetes mellitus Other Alzheimer disease Bladder cancer Heart disease Hypothyroid Social History Social History Smoking packs per day: 0.5 Smoking cigarettes per day: 10.0 Years smoked: 5 Smoking pack-years: 2.50 Smoking status: Former smoker Tobacco type: cigarettes Second hand tobacco smoke exposure: No Smoking end date: 07/04/90 Alcohol intake: never Substance use: never Substance use type: does not use Living arrangements: with family Occupation/Education: retired Gender identity (if verbalized by the patient): Female Sexual Orientation (if Verbalized by the Patient): Straight or Heterosexual Spiritual care concerns: No Agree to blood products: Yes Exam Narrative: APPEARANCE: Well appearing, no pain, no distress, well-nourished. HEAD: normocephalic, atraumatic. EYES: PERRLA/EOMI, conjunctivae clear. NOSE: Normal no drainage EARS:TMS clear with good light reflex. THROAT: Pharynx clear, no exudate. NECK: Supple. No adenopathy, no masses. RESPIRATORY: Airway patent, respirations nonlabored. Clear to auscultation bilaterally, no rales, rhonchi, wheezing. CARDIOVASCULAR: Regular rate and rhythm without murmurs rubs or gallops. ABDOMINAL: Soft, nontender, nondistended, normal bowel sounds MUSCULOSKELETAL: Mild tenderness of left wrist with no ecchymosis, no deformity and normal range of motion, no tenderness in the left elbow NEURO: Alert. Cranial nerves II through XII intact. Grossly intact SKIN: Warm, dry. Normal Color Course Vital Signs Vital signs: Vital Signs Temperature 98.2 F 06/30/24 09:32 Pulse Rate 58 L 06/30/24 09:32 Respiratory Rate 16 06/30/24 09:32 Blood Pressure 127/83 06/30/24 09:32 Pulse Oximetry 98 06/30/24 09:32 Temperature 97.9 F 06/30/24 12:37 Pulse Rate 72 06/30/24 12:37 Respiratory Rate 16 06/30/24 12:37 Blood Pressure 142/80 H 06/30/24 12:37 Pulse Oximetry 100 06/30/24 12:37 Medical Decision Making MDM Narrative Medical decision making narrative: 50-year-old female presented emergency department for evaluation after having a ground level fall. Patient had negative head CT, neck CT and hand x-rays. Patient states that she feels is most likely due to her MS or orthostatic hypotension. Patient declined additional workup for the syncope and prefers to be discharged home. Patient was advised that without the workup I cannot be sure of what actually caused her to have this episode. Patient family are still comfortable the plan for discharge to home. Patient family uses a wheelchair for transportation. Patient does stand and transfer to the wheelchair. Patient was able to do this in the emergency department and patient was comfortable being discharged home. Patient was encouraged of close follow-up with her primary care physician. Differential Diagnosis Differential Diagnosis: COVID, influenza, RSV, UTI, orthostatic hypotension, dehydration, vasovagal, cardiac arrhythmia Vital Signs Vital Signs: Vital Signs Temperature 98.2 F 06/30/24 09:32 Pulse Rate 58 L 06/30/24 09:32 Respiratory Rate 16 06/30/24 09:32 Blood Pressure 127/83 06/30/24 09:32 Pulse Oximetry 98 06/30/24 09:32 Temperature 97.9 F 06/30/24 12:37 Pulse Rate 72 06/30/24 12:37 Respiratory Rate 16 06/30/24 12:37 Blood Pressure 142/80 H 06/30/24 12:37 Pulse Oximetry 100 06/30/24 12:37 Imaging Data Radiologist's impression: Impressions Head CT 06/30/24 09:57 IMPRESSION: 1. No fracture or acute intracranial process. Cervical Spine CT 06/30/24 10:03 IMPRESSION: 1. Moderate cervical spondylosis. No acute osseous abnormality. Wrist X-Ray 06/30/24 11:03 IMPRESSION: 1. 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 No acute osseous abnormality. Discharge Plan Discharge Clinical Impression: Head injury, Acute wrist pain Patient Disposition: Home, Self-Care Condition: Stable Instructions: Antibiotic Form, Head Injury (ED), Fall Prevention (ED) Additional Instructions: You had negative imaging of your head neck and left wrist. Follow fall prevention guidelines. You declined any additional workup for the syncopal episode. Continue to have close follow-up with your primary care physician. If you have any worsening symptoms or if you have any questions or concerns then please call or return to the emergency department. Patient Language: Tuvaluan Prescriptions: No Action metoclopramide HCl 10 mg tablet See Rx Instructions PO Q6H Qty: 30 0RF Rx Instructions: Take 1 before meals and at bedtime orally every 6 hours; solifenacin 10 mg tablet 10 mg PO DAILY Qty: 90 3RF furosemide 40 mg tablet 40 mg PO QAM Qty: 30 2RF aspirin 81 mg Tablet 81 mg PO DAILY Trelegy Ellipta 100-62.5-25 mcg blister with device See Rx Instructions .ROUTE .COMPLEX Qty: 60 5RF Dose Instruction: INHALE 1 PUFF BY MOUTH ONCE DAILY Rx Instructions: INHALE 1 PUFF BY MOUTH ONCE DAILY lorazepam 1 mg tablet 1 mg PO BID PRN (Reason: anxiety) Qty: 60 5RF folic acid 1 mg tablet 1 mg PO DAILY Qty: 90 3RF ergocalciferol (vitamin D2) [Vitamin D2] 1,250 mcg (50,000 unit) capsule 50,000 unit PO MONTHLY Qty: 3 3RF topiramate 25 mg tablet 25 mg PO HS Qty: 90 2RF propranolol 20 mg tablet See Rx Instructions .ROUTE .COMPLEX Qty: 180 3RF Dose Instruction: TAKE 1 TABLET BY MOUTH TWICE A DAY Rx Instructions: TAKE 1 TABLET BY MOUTH TWICE A DAY baclofen 20 mg tablet See Rx Instructions .ROUTE .COMPLEX Qty: 90 1RF Dose Instruction: TAKE 1 TABLET (20 MG) BY MOUTH EVERY DAY AT BEDTIME Rx Instructions: TAKE 1 TABLET (20 MG) BY MOUTH EVERY DAY AT BEDTIME midodrine 2.5 mg tablet See Rx Instructions .ROUTE .COMPLEX Qty: 270 1RF Dose Instruction: TAKE 1 TAB BY MOUTH 3 TIMES A DAY *DO NOT GIVE LAST DOSE AFTER 6PM OR WITHIN 4 HOURS OF BEDTIME Rx Instructions: TAKE 1 TAB BY MOUTH 3 TIMES A DAY *DO NOT GIVE LAST DOSE AFTER 6PM OR WITHIN 4 HOURS OF BEDTIME hydrocodone-acetaminophen 10-325 mg tablet 0.5 tablet PO Q6H PRN (Reason: pain) Qty: 50 0RF pantoprazole 40 mg tablet,delayed release (DR/EC) See Rx Instructions .ROUTE .COMPLEX Qty: 180 1RF Dose Instruction: TAKE 1 TABLET BY MOUTH TWICE A DAY Rx Instructions: TAKE 1 TABLET BY MOUTH TWICE A DAY atorvastatin 40 mg tablet 40 mg PO QHS Qty: 90 1RF methotrexate sodium 2.5 mg tablet See Rx Instructions .ROUTE .COMPLEX Qty: 39 1RF Dose Instruction: TAKE 3 TABLETS BY MOUTH ONCE WEEKLY Rx Instructions: TAKE 3 TABLETS BY MOUTH ONCE WEEKLY lorazepam 2 mg tablet 1 mg PO BID PRN (Reason: anxiety) Qty: 30 2RF pregabalin 150 mg capsule 150 mg PO TID Qty: 90 5RF clonazepam 1 mg tablet 1 mg PO QHS Qty: 30 5RF Rx Instructions: administer 30 minutes before bedtime diclofenac sodium 75 mg tablet,delayed release (DR/EC) See Rx Instructions .ROUTE .COMPLEX Qty: 60 7RF Dose Instruction: TAKE 1 TABLET BY MOUTH TWICE A DAY Rx Instructions: TAKE 1 TABLET BY MOUTH TWICE A DAY doxycycline hyclate 100 mg tablet See Rx Instructions .ROUTE .COMPLEX Qty: 90 1RF Dose Instruction: TAKE 1 TABLET (100 MG) BY MOUTH AT BEDTIME Rx Instructions: TAKE 1 TABLET (100 MG) BY MOUTH AT BEDTIME methylprednisolone 4 mg tablet See Rx Instructions .ROUTE .COMPLEX Qty: 90 1RF Dose Instruction: TAKE 1 TABLET BY MOUTH DAILY Rx Instructions: TAKE 1 TABLET BY MOUTH DAILY levetiracetam 500 mg tablet See Rx Instructions .ROUTE .COMPLEX Qty: 540 1RF Dose Instruction: TAKE 3 TABLETS BY MOUTH TWICE DAILY Rx Instructions: TAKE 3 TABLETS BY MOUTH TWICE DAILY meclizine 25 mg tablet See Rx Instructions .ROUTE .COMPLEX Qty: 100 3RF Dose Instruction: TAKE 1 TABLET BY MOUTH 4 TIMES A DAY NEEDED FOR DIZZINESS Rx Instructions: TAKE 1 TABLET BY MOUTH 4 TIMES A DAY NEEDED FOR DIZZINESS sucralfate 1 gram tablet See Rx Instructions .ROUTE .COMPLEX Qty: 120 0RF Dose Instruction: TAKE 1 TABLET BY MOUTH FOUR TIMES A DAY Rx Instructions: TAKE 1 TABLET BY MOUTH FOUR TIMES A DAY Follow-up/Referrals: Warren Cowan MD [Primary Care Provider] -
[2024-06-30 12:37] VITALS: BP 142/80; PULSE 72; RESP 16; TEMP 36.6; O2SAT 100
--- OUTSIDE RECORDS SUMMARY | 2024-07-07 16:56 | XMS_ITS | Referral Summary ---
Author Organization [facility] [employer] Address [address] [place] [address] Care Team Providers Care Program Project Analyst Name Role Phone Warren Cowan MD Primary Care Provider + Source Comments [facility] [employer],non-owned Affiliates and Associated Physician Practices is amultiple site organization consisting of ambulatory clinics and hospital sitesin [place], [place], [place] and [place]. This disclosure is being madepursuant to the Care Everywhere program and may not contain all information available regarding this patient. Last updated 18.[facility] [employer] Allergies No known active allergies Medications * Be aware that medications may not be up to date on this document. Alwaysverify current medications with the patient. Medication Sig Dispensed Refills Start Date End Date Status Psyllium (METAMUCIL PO) Take 1 oz by mouth as needed Active pantoprazole (PROTONIX) 40 MG packet Take 40 mg by mouth once daily Active pilocarpine hcl, oral, (SALAGEN) 5 MG tablet Take 5 mg by mouth 3 times daily Active oxybutynin (OXYTROL) 3.9 MG/24HR patch Apply 1 Patch to skin every 3 days Active pregabalin (LYRICA) 150 MG capsule Take 150 mg by mouth 3 times daily Active milnacipran (SAVELLA) 50 MG tablet Take 50 mg by mouth 2 times daily Active IRON PO Take 65 mg by mouth once daily Active Potassium (POTASSIMIN PO) Take 595 mg by mouth once daily Active vitamin D3 (CHOLECALCIFEROL) 400 UNIT tablet Take 400 Units by mouth once daily Active atorvastatin (LIPITOR) 20 MG tablet Take 20 mg by mouth at bedtime Active sertraline (ZOLOFT) 100 MG tablet Take 100 mg by mouth once daily Active folic acid (FOLVITE) 1 MG tablet Take 1 mg by mouth once daily Active Calcium Carb-Cholecalciferol (CALCIUM 1000 + D PO) Act kaci ALPRAZolam (XANAX) 0.25 MG tablet Take 0.25 mg by mouth 3 times daily as needed for Anxiety Active amitriptyline (ELAVIL) 25 MG tablet Take 25 mg by mouth at bedtime Active HYDROcodone-acetamino phen (NORCO) 7.5-325 MG tablet Take 1 Tab by mouth every 4 hours as needed for Pain Active metaxalone (SKELAXIN) 800 MG tablet Take 800 mg by mouth 3 times daily as needed for Muscle Spasms Active meclizine (ANTIVERT) 25 MG tablet Take 25 mg by mouth 3 times daily as needed for Dizziness Active nitrofurantoin monohyd macro crystals (MACROBID) 100 MG capsule Take 100 mg by mouth 2 times daily with morning and evening meal Active melatonin 5 MG tablet Take 6 mg by mouth at bedtime Active methylPREDNISolone (MEDROL) 4 MG tablet Take 4 mg by mouth once daily Active oxyCODONE-acetaminoph en (PERCOCET) 5-325 MG tablet Take 1 Tab by mouth every 4 hours as needed 40 Tab 0 02/23/2016 Active ibuprofen (MOTRIN) 600 MG tablet Take 1 Tab by mouth every 6 hours as needed for Pain 60 Tab 0 02/23/2016 Active docusate sodium (COLACE) 100 MG capsule Take 1 Cap by mouth 2 times daily 60 Cap 3 02/23/2016 Active polyethylene glycol 3350 (MIRALAX) powder Take 17 g by mouth once daily 225 g 0 02/23/2016 Active Active Problems Problem Noted Date Diagnosed Date Pelvic mass in female Social History Tobacco Use Types Packs/Day Years Used Date Smoking Tobacco: Never Smokeless Tobacco: Never Alcohol Use Standard Drinks/Week Comments No 0 (1 standard drink = 0.6 oz pur e alcohol) Sex and Gender Information Value Date Recorded Sex Assigned at Not on file Gender Identity Not on file Sexual Orientation Not on file Last Filed Vital Signs Vital Sign Reading Time Taken Comments Blood Pressure 128/84 03/30/2016 10:35 AM CDT Pulse 96 02/23/2016 4:00 PM CDT Temperature 36.7 ??C (98.1 ??F) 02/23/2016 4:00 PM CD T Respiratory Rate 16 02/23/2016 11:42 AM CDT Oxygen Saturation 97% 02/23/2016 4:00 PM CDT Inhaled Oxygen Concentration - - Weight 94.3 kg (208 lb) 03/30/2016 10:35 AM CDT Height 165.1 cm (5' 5 ) 03/30/2016 10:35 AM CDT Body Mass Index 34.61 03/30/2016 10:35 AM CDT Functional Status Functional Status Response Date of Assess ment Is person deaf or have serious hearing difficult y? No 02/23/2016 Is person blind or have serious difficulty seein g? No 02/23/2016 Does person have serious dif ficulty walking/climbing stairs? No 02/23/2016 Does person have difficulty dressing/bathing? No 02/23/2016 Does person have difficulty doing errands alone? No 02/23/2016 Cognitive Status Response Date of Assessm ent Does person have difficulty concentrating/remembering/making decisions? No 02/23/2016 Plan of Treatment Not on file Advance Directives * Full Code (Latest Code Status on File) Date Activated Date Inactivated Comments 02/23/2016 11:33 AM 02/23/2016 7:30 PM Care Teams Program Project Analyst Relationship Specialty Start Date End Date Warren Cowan MD [address] [id number] PCP - General Family Medicine 02/20/16
--- OUTSIDE RECORDS SUMMARY | 2024-07-07 16:56 | XMS_ITS | Encounter Summary ---
Author Organization [facility] Address [address] [place] [address] Care Team Providers Care Relief Pharmacist Name Role Phone Warren Cowan MD Primary Care Provider + Reason for Visit * Auth/Cert Specialty Diagnoses / Procedures Referred By Morgan palma Referred To Contact Diagnoses Vaginal tumor Pain, pelvic, female Vaginal tumor Pain, pelvic, female Procedures LAPAROSCOPIC SALPINGO OOPHORECTOMY PROCEDURE NOT LISTED - SEE COMMENTS LAPAROTOMY EXPLORATORY Referral ID Status Reason Start Date Expiration Date Visits Re quested Visits Authorized [id number] 1 1 Encounter Details Date Type Department Care Team (Late st Contact Info) Description 02/23/2016 7:37 AM CDT Anesthesia Event [facility] [address] [place], [place] [id number] Santos Raman MD [address] [facility] [address] Sukhwinder Mead DO [address] [facility] [place], [place] [id number] Anesthesia Record Procedure Summary Procedure Name Responsible Anesthesiologist Anesthesia Start Time Anesthesia Stop Time Laparoscopic bilateral salpingo-oophorectomy, lysis of adhesions.Cystostomy and repair (Bilateral: Abdomen) Santos Raman MD 02/23/16 0737 02/23/16 1043 Events Date Time Event Comment 02/23/2016 0700 0737 An Start 0737 An Start Data 0737 PT Reassessment Patient and Vital Signs reassessed prior to induction. 0742 An Induction 0744 An Intubation 0821 Time Out Anesthesia part icipated in timeout at the time documented in the record by nursing 1033 Extubation 1034 an stop data 1034 Elect Sign The providers l isted as staff are the responsible providers for the case. 1034 ANPTO2 1043 An Stop 1043 Handoff Checklist follo wed: 1. Identification of patient 2. Identification of responsible nurse 3. Discussion of pertinent medical history 4. Discussion of surgical/procedure course 5. Intraoperative anesthetic management and concerns 6. Expectations/plans for the early post-procedure period 7. Opportunity for questions and acknowledgement of report Meds Name Total midazolam (VERSED) 1 mg/mL injection 2 m g fentaNYL (SUBLIMAZE) injection 0.05 mg/m L 250 mcg lidocaine (XYLOCAINE) 2% injection 20 mg propofol (DIPRIVAN) injection 10mg/mL 15 0 mg succinylcholine (ANECTINE) 20 mg/ml inje ction 120 mg rocuronium (ZEMURON) 10 mg/ml injection 40 mg glycopyrrolate 0.2 mg/ml injection 0.4 m g ondansetron (ZOFRAN) 2 mg/ml injection 4 mg ketorolac (TORADOL) 30 mg/ml injection 3 0 mg dexamethasone (DECADRON) 4 mg/ml injecti on 4 mg ceFAZolin 2 g IVPB 2 g ePHEDrine injection 50 mg/ml 30 mg morphine 10 mg/ml injection 10 mg neostigmine 1 mg/ml injection 3 mg lactated ringers infusion 2,500 mL * Agents Name Insp. N2O Exp. Sevoflurane O2 Air Insp. Sevoflurane N2O * Blood No blood administrations on file. Lines, Drains, and Airways Type Details Placement Removal Peripheral IV Date: 02/23/16; Time : 720; Orientation: Left; Placed By: Camilo Johnson RN; Tolerance: Well 02/23/16 0721 by Vilma Johnson RN 02/23/16 1820 by Anabelle Lynch RN ETT Date: 02/23/16; Time : 0744; Placed By: [facility]; Vent: easy mask; Induction: Standard IV, IV Sedation; Blade Type: Elliott; Blade Size: 2; Laryngoscopy View: Grade 2 (partial cords); Intubation Adjuncts: Stylet; Tube: Endotracheal Tube; Placement: Oral; Tube Type: Cuffed-inflated; Tube Size(mm): 7 MM; Depth of Insertion: 22 CM; Measured From: lips; Cuff Infated: Air; Cuff Vol(mL): 8 mL; Verified By: Direct visualization, CO2 Monitor, Bilateral breath sounds, Chest Auscultation; Reason: small mouth opening, obesity 02/23/16 0744 by Alicia Lopez APRN-VANGIE 02/23/16 1033 by Alicia Lopez APRN-VANGIE RETIRED Procedural Site 02/23/16; 0825; Abdomen; Laparoscopic; 02/24/16; 0030 02/23/16 0825 by Idris Spears RN 02/24/16 0030 by Generic, Auto Release Urethral Catheter 02/23/16; 08; Surgery; Dr. Mehta; 16; General Anesthesia; 02/24/16; 0030 02/23/16 0825 by Idris Spears RN 02/24/16 0030 by Generic, Auto Release documented in this encounter Social History Tobacco Use Types Packs/Day Years Used Date Smoking Tobacco: Never Smokeless Tobacco: Never Alcohol Use Standard Drinks/Week Comments No 0 (1 standard drink = 0.6 oz pur e alcohol) Sex and Gender Information Value Date Recorded Sex Assigned at Not on file Gender Identity Not on file Sexual Orientation Not on file documented as of this encounter Progress Notes * Santos Raman MD - 02/23/2016 11:44 AM CDT ANESTHESIA POSTPROCEDURE EVALUATION Allie Buchanan is a 50 y.o. female Temp: 36.3 ??C Pulse: 91 Resp: 16 BP: 143/91 mmHg SpO2: 99 % Pain Rating Score #1: 3 Anesthesia Type: general Mental status: sufficiently recovered from acute administration of anesthesia to participate in theevaluation and neurologic status has returned to preoperative level. Level of consciousness: awake No numbness, tingling or visual disturbances present. General appearance: well-appearing Respiratory function: natural airway. Cardiac: stable Pain: comfortable/acceptable PONV: None Postop hydration: adequate. Patient may be released from anesthesia care. Perioperative Complications: No value filed. ASA/AQI Tracking Events: No value filed. documented in this encounter Consult Notes * Santos Raman MD - 02/23/2016 6:46 AM CDT Pre-anesthesia Evaluation Procedure(s): LAPAROSCOPIC SALPINGO-OOPHORECTOMY (Bilateral Abdomen) TRANSVAGINAL RESECTION OF VAGINAL MASS (Vagina ) POSSIBLE EXPLORATORY LAPAROTOMY (Abdomen) Diagnosis: Vaginal tumor [D49.5];Pain, pelvic, female [R10.2] Vital Signs: BMI: Estimated body mass index is 34.11 kg/(m^2) as calculated from the following: Height as of this encounter: 1.651 m. Weight as of this encounter: 92.987 kg. History: Past Medical History Diagnosis Date ??? SLE (Kirsten encephalitis) ??? RA (rheumatoid arthritis) ??? Sjoegren syndrome ??? Fibromyalgia ??? Lupus ??? Multiple sclerosis ??? Spinal stenosis Past Surgical History Procedure Laterality Date ??? Hysterectomy ??? Tonsillectomy and adenoidectomy ??? Cholecystectomy ??? Laparoscopy reports that she has never smoked. She has never used smokeless tobacco. She reports that she does not drink alcohol or use illicit drugs. Allergies: has No Known Allergies. Medications: Home Medications for Outpatients: No current outpatient prescriptions on file. Home Medications for Inpatients: No prescriptions prior to admission Inpatient Medications: Current Facility-Administered Medications Medication Dose Route Frequency Provider Last Rate Last Dose ??? lactated ringers infusion Intravenous pre-OP continuous Sukhwinder Mead DO ??? lidocaine (XYLOCAINE MPF) 1 % injection Infiltration pre-OP multiple Sukhwinder Mead, DO Physical Exam: NPO status: no solids since midnight, no liquids within 2 hours Oriented to person, place and time Airway: II (doubel chin/small mouth opening) Neck ROM: full Dental exam findings: normal/ok (single false tooth) Pulmonary exam: breath sounds CTA Heart sounds: S1 S2 Review of Systems: Negative for anesthesia complications Patient history unchanged. No results for input(s): WBC, RBC, HGB, HCT, MCV, MCHC, PLTCOUNT, NEUTPCT, LYMPHPCT, MONOCYTPCT, EOSINPCT, BASOPHILPCT, GRANSIMMPCT, NEUTABS, LYMPHABS, MONOCYTABS, EOSINABS, BASOABS, IMMGRANSABS in the last 22566 hours. Plan for Anesthesia: Reviewed allergies, history and medications ASA Score: 3. Anesthesia plan: general / ETT Planned method of induction: intravenous Planned postop destination: PACU Planned administration of opioids for postop analgesia Anesthesia plan, risks and benefits discussed with patient Anesthesia consent: obtained Plan accepted yes Discussed anesthesia plan with: HEALTHCARE PROF. documented in this encounter Plan of Treatment Not on file documented as of this encounter Visit Diagnoses Not on filedocumented in this encounter Administered Medications Inactive Administered Medications - up to 3 most recent administrations Medication Order MAR Action Action Date Dose Rate Site ceFAZolin (ANCEF) 2,000 mg in 50 ml IVPB PRN, Starting on Tue02/23/16 at 0736, Until Tue02/23/16 at 1045, Anesthesia Intra-op $ Given 02/23/2016 7:36 AM CDT 2 g dexamethasone (DECADRON) injection Intravenous, PRN, Nausea/Vomiting, Starting on Tue02/23/16 at 0745, Until Tue02/23/16 at 1045, Anesthesia Intra-op $ Given 02/23/2016 7:45 AM CDT 4 mg ePHEDrine injection PRN, Starting on Tue02/23/16 at 0834, Until Tue02/23/16 at 1045, Anesthesia Intra-op $ Given 02/23/2016 9:21 AM CDT 10 mg $ Given 02/23/2016 9:17 AM CDT 10 mg $ Given 02/23/2016 8:34 AM CDT 10 mg fentaNYL (PF) (SUBLIMAZE) injection PRN, Starting on Tue02/23/16 at 0742, Until Tue02/23/16 at 1045, Anesthesia Intra-op $ Given 02/23/2016 8:53 AM CDT 100 mcg $ Given 02/23/2016 8:21 AM CDT 50 mcg $ Given 02/23/2016 7:42 AM CDT 100 mcg glycopyrrolate (ROBINUL) injection PRN, Starting on Tue02/23/16 at 1028, Until Tue02/23/16 at 1045, Anesthesia Intra-op $ Given 02/23/2016 10:28 AM CDT 0.4 mg ketorolac (TORADOL) injection PRN, Starting on Tue02/23/16 at 1025, Until Tue02/23/16 at 1045, Anesthesia Intra-op $ Given 02/23/2016 10:25 AM CDT 30 mg lactated ringers infusion at 20 mL/hr, Intravenous, PRE-OP CONTINUOUS, Starting on Tue02/23/16 at 0645, Until Tue02/23/16 at 1133, Pre-op $ New Bag/Syringe 02/23/2016 9:30 AM CDT $ New Bag/Syringe 02/23/2016 8:15 AM CDT $ New Bag/Syringe 02/23/2016 7:22 AM CDT 20 mL/hr 20 mL/ hr lidocaine (XYLOCAINE) 2 % injection PRN, Starting on Tue02/23/16 at 0742, Until Tue02/23/16 at 1045, Anesthesia Intra-op $ Given 02/23/2016 7:42 AM CDT 20 mg midazolam (VERSED) injection Intravenous, PRN, Starting on Tue02/23/16 at 0736, Until Tue02/23/16 at 1045, Anesthesia Intra-op $ Given 02/23/2016 7:36 AM CDT 2 mg morphine injection PRN, Starting on Tue02/23/16 at 0903, Until Tue02/23/16 at 1045, Anesthesia Intra-op $ Given 02/23/2016 10:28 AM CDT 5 mg $ Given 02/23/2016 9:03 AM CDT 5 mg neostigmine (PROSTIGMIN/BLOXIVERZ) injection PRN, Starting on Tue02/23/16 at 1028, Until Tue02/23/16 at 1045, Anesthesia Intra-op $ Given 02/23/2016 10:28 AM CDT 3 mg ondansetron (ZOFRAN) injection PRN, Nausea/Vomiting, Starting on Tue02/23/16 at 1025, Until Tue02/23/16 at 1045, Anesthesia Intra-op $ Given 02/23/2016 10:25 AM CDT 4 mg propofol (DIPRIVAN) injection PRN, Starting on Tue02/23/16 at 0742, Until Tue02/23/16 at 1045, Anesthesia Intra-op $ Given 02/23/2016 7:42 AM CDT 150 mg rocuronium (ZEMURON) injection Intravenous, PRN, Starting on Tue02/23/16 at 0745, Until Tue02/23/16 at 1045, Anesthesia Intra-op $ Given 02/23/2016 7:45 AM CDT 40 mg succinylcholine (ANECTINE) injection PRN, Starting on Tue02/23/16 at 0742, Until Tue02/23/16 at 1045, Anesthesia Intra-op $ Given 02/23/2016 7:42 AM CDT 120 mg documented in this encounter Care Teams Relief Pharmacist Relationship Specialty Start Date End Date Warren Cowan MD [address] [address] PCP - General Family Medicine 02/20/16 documented as of this encounter
--- OUTSIDE RECORDS SUMMARY | 2024-07-07 16:56 | XMS_ITS | Clinical Summary ---
Author Organization [facility] [employer] Address [address] [place] [address] Care Team Providers Care Animation Camera Operator Name Role Phone Warren Cowan MD Primary Care Provider + Source Comments [facility] [employer],non-owned Affiliates and Associated Physician Practices is amultiple site organization consisting of ambulatory clinics and hospital sitesin [place], [place]. This disclosure is being madepursuant to the Care Everywhere program and may not contain all information available regarding this patient. Last updated 18.[facility] [employer] Allergies No known active allergies Medications * [...] Date Diagnosed Date Pelvic mass in female Family History Medical History Relation Name Comments Cancer - Other Father liver cancer Relation Name Status Comments Father Social History Tobacco Use Types Packs/Day Years [...] Mass Index 34.61 03/30/2016 10:35 AM CDT Plan of Treatment Health Maintenance Due Date Last Done Comments COLOGUARD (AGES 45-75) - COL ON CA SCREENING 1965 COLON MONITORING 1965 COLONOSCOPY - COLON CA SCREENING 1965 CT COLONOGRAPHY - COLON CA SCREENING 1965 Colorectal Cancer Screening 1965 FIT - COLON CA SCREENING 1965 FLEX SIG - COLON CA SCREENING 1965 MAMMOGRAM 1965 PAP SMEAR 1965 HIV SCREENING 1980 HEPATITIS C SCREENING 07/05/1983 DTAP/TDAP/TD VACCINES (1 - Tdap) 1984 HEPATITIS B VACCINE (1 of 3 - 19+ 3-dose series) 1984 ZOSTER VACCINE (1 of 2) 2015 DEPRESSION SCREENING 07/04/2023 MEDICARE AWV ? CALENDAR YEAR 2023 COVID-19 VACCINE (1 - 2023-2 5 season) 2024 INFLUENZA VACCINE (#1) 2024 HIB VACCINE Aged Out No longer eligi ble based on patient's age to complete this topic HPV VACCINE Aged Out No longer eligi ble based on patient's age to complete this topic MENINGOCOCCAL VACCINE Aged Out No ashley jayleen eligible based on patient's age to complete this topic PNEUMOCOCCAL VACCINE Aged Out No long er eligible based on patient's age to complete this topic Advance Directives * Full Code (Latest Code Status on File) Date Activated Date Inactivated Comments 02/23/2016 11:33 AM 02/23/2016 7:30 PM Care Teams Animation Camera Operator Relationship Specialty Start Date End Date Warren Cowan MD [address] [address] PCP - General Family Medicine 02/20/16
--- OUTSIDE RECORDS SUMMARY | 2024-07-07 16:56 | XMS_ITS | Patient Health Summary ---
Author Organization [facility] Address [address] [place] [address] Care Team Providers Care Office Services Assistant Name Role Phone Warren Cowan MD Primary Care Provider + Note from [facility],non-owned Affiliates and Associated Physician Practices is amultiple site organization consisting of ambulatory clinics and hospital sitesin [place], [place], [place] and [place]. This disclosure is being madepursuant to the Care Everywhere program and may not contain all information available regarding this patient. Last updated 18.[facility] Allergies No known active allergies Medications * Be aware that medications may not be up to date on this document. Alwaysverify current medications with the patient. * Psyllium (METAMUCIL PO) Take 1 oz by mouth as needed * pantoprazole (PROTONIX) 40 MG packet Take 40 mg by mouth once daily * pilocarpine hcl, oral, (SALAGEN) 5 MG tablet Take 5 mg by mouth 3 times daily * oxybutynin (OXYTROL) 3.9 MG/24HR patch Apply 1 Patch to skin every 3 days * pregabalin (LYRICA) 150 MG capsule Take 150 mg by mouth 3 times daily * milnacipran (SAVELLA) 50 MG tablet Take 50 mg by mouth 2 times daily * IRON PO Take 65 mg by mouth once daily * Potassium (POTASSIMIN PO) Take 595 mg by mouth once daily * vitamin D3 (CHOLECALCIFEROL) 400 UNIT tablet Take 400 Units by mouth once daily * atorvastatin (LIPITOR) 20 MG tablet Take 20 mg by mouth at bedtime * sertraline (ZOLOFT) 100 MG tablet Take 100 mg by mouth once daily * folic acid (FOLVITE) 1 MG tablet Take 1 mg by mouth once daily * Calcium Carb-Cholecalciferol (CALCIUM 1000 + D PO) * ALPRAZolam (XANAX) 0.25 MG tablet Take 0.25 mg by mouth 3 times daily as needed for Anxiety * amitriptyline (ELAVIL) 25 MG tablet Take 25 mg by mouth at bedtime * HYDROcodone-acetaminophen (NORCO) 7.5-325 MG tablet Take 1 Tab by mouth every 4 hours as needed for Pain * metaxalone (SKELAXIN) 800 MG tablet Take 800 mg by mouth 3 times daily as needed for Muscle Spasms * meclizine (ANTIVERT) 25 MG tablet Take 25 mg by mouth 3 times daily as needed for Dizziness * nitrofurantoin monohyd macro crystals (MACROBID) 100 MG capsule Take 100 mg by mouth 2 times daily with morning and evening meal * melatonin 5 MG tablet Take 6 mg by mouth at bedtime * methylPREDNISolone (MEDROL) 4 MG tablet Take 4 mg by mouth once daily * oxyCODONE-acetaminophen (PERCOCET) 5-325 MG tablet(Started 02/23/2016) Take 1 Tab by mouth every 4 hours as needed * ibuprofen (MOTRIN) 600 MG tablet(Started 02/23/2016) Take 1 Tab by mouth every 6 hours as needed for Pain * docusate sodium (COLACE) 100 MG capsule(Started 02/23/2016) Take 1 Cap by mouth 2 times daily 3 refills left * polyethylene glycol 3350 (MIRALAX) powder(Started 02/23/2016) Take 17 g by mouth once daily Active Problems Problem Noted Date Diagnosed Date [...] Mass Index 34.61 03/30/2016 10:35 AM CDT Procedures * LAB RESULTS ORDER(Performed 02/25/2016) * CARDIAC RHYTHM STRIP ORDER(Performed 02/25/2016) * URINALYSIS REFLEX MICROSCOPIC REFLEX CULTURE(Performed 02/23/2016) Performed for Vaginal tumor, Pain, pelvic, female * URINE MICROSCOPIC ONLY REFLEX TO CULTURE(Performed 02/23/2016) Performed for Vaginal tumor, Pain, pelvic, female * PATHOLOGY TISSUE EXAM (STL)(Performed 02/23/2016) Performed for Vaginal tumor, Pain, pelvic, female * BLOOD TYPE VERIFICATION(Performed 02/23/2016) * CYSTOSTOMY(Performed 02/23/2016) Performed for Vaginal tumor, Pain, pelvic, female * LYSIS ADHESIONS(Performed 02/23/2016) Performed for Vaginal tumor, Pain, pelvic, female * LAPAROSCOPIC SALPINGECTOMY AND/OR OOPHORECTOMY(Performed 02/23/2016) Performed for Vaginal tumor, Pain, pelvic, female * TYPE + SCREEN PANEL(Performed 02/23/2016) * PATHOLOGY/GENETICS HISTORICAL-ONBASE(Performed 02/23/2016) * LAB HISTORICAL RESULTS-ONBASE(Performed 02/23/2016) * CANCER ANTIGEN (CA)125 BLOOD(Performed 02/19/2016) * COMPREHENSIVE METABOLIC PANEL(Performed 02/19/2016) * CBC W AUTO DIFFERENTIAL(Performed 02/19/2016) * PATHOLOGY TISSUE(Performed 09/25/2015) * CBC W AUTO DIFFERENTIAL(Performed 09/25/2015) * DIFFERENTIAL MANUAL(Performed 09/25/2015) * PHOSPHORUS BLOOD(Performed 09/25/2015) * MAGNESIUM BLOOD(Performed 09/25/2015) * BASIC METABOLIC PANEL (CALCIUM TOTAL)(Performed 09/25/2015) * CBC W AUTO DIFFERENTIAL(Performed 09/25/2015) * PHOSPHORUS BLOOD(Performed 09/24/2015) * BASIC METABOLIC PANEL (CALCIUM TOTAL)(Performed 09/24/2015) * MAGNESIUM BLOOD(Performed 09/24/2015) * CBC W AUTO DIFFERENTIAL(Performed 09/24/2015) * CBC W AUTO DIFFERENTIAL(Performed 09/24/2015) * CBC W AUTO DIFFERENTIAL(Performed 09/23/2015) * BASIC METABOLIC PANEL (CALCIUM TOTAL)(Performed 09/23/2015) * PHOSPHORUS BLOOD(Performed 09/23/2015) * MAGNESIUM BLOOD(Performed 09/23/2015) * ECHO STRESS COLOR FLOW AND DOPPLER(Performed 09/23/2015) * ECHO STRESS W DOBUTAMINE(Performed 09/23/2015) * COMPREHENSIVE METABOLIC PANEL(Performed 09/22/2015) * PHOSPHORUS BLOOD(Performed 09/22/2015) * MAGNESIUM BLOOD(Performed 09/22/2015) * CBC W AUTO DIFFERENTIAL(Performed 09/22/2015) * CBC W AUTO DIFFERENTIAL(Performed 09/22/2015) * TSH(Performed 09/21/2015) * GLUCOSE ACCUCHECK(Performed 09/21/2015) * C DIFFICILE GDH AG + TOXIN A+B(Performed 09/21/2015) * C DIFFICILE BY PCR(Performed 09/21/2015) * XR ABDOMEN 2VW(Performed 09/21/2015) * FOLATE(Performed 09/21/2015) * VITAMIN B12(Performed 09/21/2015) * TROPONIN I(Performed 09/21/2015) * CK + CKMB PANEL(Performed 09/21/2015) * COMPREHENSIVE METABOLIC PANEL(Performed 09/21/2015) * LACTIC ACID BLOOD(Performed 09/21/2015) * CBC W AUTO DIFFERENTIAL(Performed 09/21/2015) * CBC W AUTO DIFFERENTIAL(Performed 09/21/2015) * EKG 12-LEAD(Performed 09/21/2015) * URINALYSIS W/MICROSCOPIC NO CULTURE(Performed 09/20/2015) * CULTURE URINE(Performed 09/20/2015) * BLOOD GASES ARTERIAL(Performed 09/20/2015) * COMPLEMENT TOTAL(Performed 09/20/2015) * LACTIC ACID BLOOD(Performed 09/20/2015) * CK + CKMB PANEL(Performed 09/20/2015) * TROPONIN I(Performed 09/20/2015) * COMPREHENSIVE METABOLIC PANEL(Performed 09/20/2015) * C-REACTIVE PROTEIN(Performed 09/20/2015) * ERYTHROCYTE SEDIMENTATION RATE(Performed 09/20/2015) * COMPLEMENT C4(Performed 09/20/2015) * COMPLEMENT C3(Performed 09/20/2015) * PHOSPHORUS BLOOD(Performed 09/20/2015) * MAGNESIUM BLOOD(Performed 09/20/2015) * AMYLASE BLOOD(Performed 09/20/2015) * LIPASE BLOOD(Performed 09/20/2015) * PT-INR SLH(Performed 09/20/2015) * CBC W AUTO DIFFERENTIAL(Performed 09/20/2015) * CBC W AUTO DIFFERENTIAL(Performed 09/20/2015) * CULTURE BLOOD(Performed 09/20/2015) * XR CHEST 1VW PORTABLE(Performed 09/20/2015) * EKG 12-LEAD(Performed 09/20/2015) Results * LAB RESULTS ORDER (02/25/2016 1:47 AM CDT) Narrative 02/25/2016 1:47 AM CDT Ordered by an unspecified provider. Scanned Document LAB - THERAPEUTIC DR GARCIA MONITORING ORDERABLES * CARDIAC RHYTHM STRIP ORDER (02/25/2016 1:47 AM CDT) Narrative 02/25/2016 1:47 AM CDT Ordered by an unspecified provider. Scanned Document CARDIAC SERVICES ORD ERABLES * (ABNORMAL) URINALYSIS ROUTINE W/REFLEX TO CULTURE (02/23/2016 10:43 AM CDT) Color UA Digna(A) Straw, Yellow, Dark Yellow 02/23/2016 11:16 AM CDT [facility] Clarity UA Cloudy 02/23/2016 11:16 AM CDT [facility] Specific [place] UA 1.028 1.005 - 1.030 02/23/2016 11:16 AM CDT [facility] pH UA 5.5 5.0 - 8.0 pH 02/23/2016 11:16 AM T [facility] Protein UA Trace(A) Negative 02/23/2016 11:16 AM CDT [facility] Blood UA 3+(A) Negative 02/23/2016 11:16 AM CDT [facility] Leukocyte UA Negative Negative 02/23/2016 11:16 AM CDT [facility] Nitrite UA Negative Negative 02/23/2016 11:16 AM CDT [facility] Glucose UA Negative Negative 02/23/2016 11:16 AM CDT [facility] Ketone UA Trace(A) Negative 02/23/2016 11:16 AM CDT [facility] Bilirubin UA Negative Negative 02/23/2016 11:16 AM CDT [facility] Urobilinogen UA 0.2 0.1 - 1.0 EU/dL 02/23/2016 11:16 AM T [facility] WBC UA Auto 2-5 0-2, 2-5 # /hpf 02/23/2016 11:16 AM CDT [facility] RBC UA Auto >100(A) 0-2, 2-5 # /hpf 02/23/2016 11:16 AM CDT [facility] Hyaline Casts UA Auto Reflex to manual(A) 0 - 2 #/lpf 02/23/2016 11:16 AM CDT [facility] Reflex Status Culture not indicated 02/23/2016 11:16 AM CDT [facility] Urine URINE SPECIMEN OBTAINED VIA [employer]WELL[employer] URINARY CATHETER / Unknown Collection / Unknown 02/23/2016 10:43 AM CDT 02/23/2016 10:57 AM CDT Loc Mehta MD LAB - URINALYSIS OR DERABLES Performing Organization Address [facility] Co de Phone Number [facility] [address] [place] [address] * (ABNORMAL) URINALYSIS MICROSCOPIC ONLY W/REFLEX CULTURE (02/23/2016 10:43 AM CDT) Epithelial Cell UA 5-10(A) 0-2, 2-5 # /hpf 02/23/2016 11:20 AM CDT [facility] Hyaline Casts 2-5(A) 0 - 2 # /lpf 02/23/2016 11:20 AM CDT [facility] Urine URINE SPECIMEN OBTAINED VIA [employer] URINARY CATHETER / Unknown Collection / Unknown 02/23/2016 10:43 AM CDT 02/23/2016 10:57 AM CDT Loc Mehta MD LAB - URINALYSIS OR DERABLES Performing Organization Address [facility] Co de Phone Number [facility] [address] [place] [address] * GROSS + MICRO EXAM (STL) (02/23/2016 9:08 AM CDT) Case Report Surgical Pathology Report ? Case: [id number] ? Authorizing Provider: ??Loc Mehta MD ? Collected: ? 02/23/2016 09:08 AM ? Ordering Location: ? [facility] ? Received: ?02/23/2016 11:10 AM ? Pathologist: ? Joceline Soliz MD ? Specimen: ?Ovary with Tube, BI-LATERAL TUBES and OVARIES ? 02/24/2016 8:50 AM T [facility] Final Diagnosis 1. ??Bilateral ovaries and fallopian tubes, hysterectomy and salpingo-oophorec juan carlos: -- ??No evidence of malignancy [facility]/ 02/24/2016 8:50 AM [facility] Gross Description Received in formalin in a container labeled Allie Buchanan, bilateral tubes and ovaries. ??The container holds bilateral ovaries with attached fallopian tube segments. ??The smaller ovary measures 3.2 x 2.2 x 2 cm. ??The attached fallopian tube segment measures 4 cm in length x 1.5 cm in diameter. ??The ovary with attached fallopian tube has a weight of 10.5 gm. ??The external surface of the ovary is pink-wright. ??Sectioning shows a wright, grossly unremarkable ovarian stroma. ??The fallopian tube segment has a fimbriated end. ??Sectioning shows a patent lumen with no focal lesion. ??The larger ovary measures 4.5 x 3.5 x 2.2 cm. ??The attached fallopian tube segment measures 5 cm in length and up to 0.7 cm in diameter. ??The external surface of the ovary is pink-wright with scattered adhesions. ??The ovary with attached fallopian tube has a weight of 9.1 gm. ??Sectioning through the ovary shows a pink-wright unremarkable ovarian stroma. ??The fallopian tube segment has a few clear fluid-filled paratubal cysts attached near the fimbria measuring from 0.1 cm up to 0.8 cm. ??Sectioning through the fallopian tube shows a patent lumen with no focal lesion. ??[place] Former sections are submitted as follows: ?? A1-A2 - smaller ovary with attached fallopian tube segment A3-A4 - larger ovary with attached fallopian tube segment DYT/rtc 02/24/2016 8:50 AM CDT [facility] Microscopic Description Sections reveal bilateral ovaries and fallopian tubes with benign histology. ??The fallopian tubes show small paratubal cysts. ??The ovaries are histologically unremarkable. ?? [facility]/ 02/24/2016 8:50 AM CDT [facility] Pathology/Cytolo gy FALLOPIAN TUBE AND OVARY, CS / Unknown 02/23/2016 9:08 AM CDT 02/23/2016 11:10 AM CDT Loc Mehta MD LAB - PATHOLOGY/CYT OLOGY ORDERABLES Performing Organization Address City/[facility] Co de Phone Number [facility] [address] [place] [address] * BLOOD TYPE VERIFICATION (02/23/2016 8:35 AM CDT) ABO A 02/23/2016 8:44 AM CDT [facility] Rh Type Positive 02/23/2016 8:44 AM CDT [facility] Miscellaneous samples (specimen) BLOOD SPECIMEN / Unknown Venipuncture / Unknown 02/23/2016 8:35 AM CDT 02/23/2016 8:39 AM CDT Loc Mehta MD LAB - BLOOD BANK OR DERABLES [facility] [address] * TYPE + SCREEN PANEL (02/23/2016 7:16 AM CDT) ABO A 02/23/2016 8:44 AM CDT [facility] Rh Type Positive 02/23/2016 8:44 AM CDT [facility] Comment:History check perfor med. No retype required. Antibody Screen Negative 02/23/2016 8:44 AM CDT [facility] Miscellaneous samples (specimen) BLOOD SPECIMEN / Unknown Venipuncture / Unknown 02/23/2016 7:16 AM CDT 02/23/2016 7:24 AM CDT Santos Raman MD LAB - BLOOD BANK ORD ERABLES Performing Organization Address [facility] Co de Phone Number [facility] [address] * PATHOLOGY/GENETICS HISTORICAL-ONBASE (02/23/2016) 02/23/2016 Historical Provider LAB - CHEMISTRY O RDERABLES Performing Organization Address [facility] Co de Phone Number [address] * LAB HISTORICAL RESULTS-ONBASE (02/23/2016) 02/23/2016 Historical Provider LAB - CHEMISTRY O RDERABLES Performing Organization Address [facility] Co de Phone Number [address] * CANCER ANTIGEN (CA)125 BLOOD (02/19/2016 12:14 PM CDT) CA 125 13 <35 U/mL [facility]) Comment: This test was performed using the Reginaldo Dinuba Chemiluminescent method. Values obtained from different assay methods cannot be used interchangeably. CA 125 levels, regardless of value, should not be interpreted as absolute evidence of the presence or absence of disease. REPORT COMMENT: PLEASE FAX RESULTS TO [phone], ATTN INESSA; PLEASE FAX RESU Test Performed at: [facility] [place] [address] [place], [place] ??[phone] BOWEN GLORIA DO,MPH Blood specimen (specimen) BLOOD SPECIMEN / Unknown 02/19/2016 12:14 PM CDT 02/19/2016 12:15 PM CDT Narrative [facility]) - 02/20/2016 9:00 AM CDT PLEASE FAX RESULTS TO [phone], ATTPhuong WYLIE Loc Mehta MD LAB - CHEMISTRY ORD ERABLES [facility]) * (ABNORMAL) CBC W AUTO DIFFERENTIAL (02/19/2016 12:14 PM CDT) Only the most recent of12 resultswithin the time period is included. WBC 9.2 3.8 - 10.8 Thousand/u L [facility]) RBC 4.76 3.80 - 5.10 Million/uL [facility]) Hemoglobin 15.1 11.7 - 15.5 g/dL [facility]) Hematocrit 46.3(H) 35.0 - 45.0 % [facility]) MCV 97.2 80.0 - 100.0 fL [facility]) MCH 31.8 27.0 - 33.0 pg [facility]) MCHC 32.7 32.0 - 36.0 g/dL [facility]) RDW-CV 15.6(H) 11.0 - 15.0 % [facility]) Platelet 204 140 - 400 Thousand/u L [facility]) MPV 10.9 7.5 - 11.5 fL [facility]) Neutrophils Absolute 6,035 1,500 - 7,800 cells/uL [facility]) Lymphocyte Absolute Manual 2,374 850 - 3,900 cells/uL [facility]) Monocytes Absolute 570 200 - 950 cells/uL [facility]) Eosinophils Absolute 166 15 - 500 cells/uL [facility] ([facility]) Basophil Absolute Manual 55 0 - 200 cells/uL [facility]) Neutrophils % 65.6 % [facility]) Lymphocytes % 25.8 % [facility]) Monocytes % 6.2 % [facility]) Eosinophils % 1.8 % [facility]) Basophil % 0.6 % [facility]) Comment: Test Performed at: [facility] [place] [address], [place] ??[phone] BOWEN GLORIA DO,MPH Blood specimen (specimen) BLOOD SPECIMEN / Unknown 02/19/2016 12:14 PM CDT 02/19/2016 12:15 PM CDT Narrative [facility]) - 02/20/2016 9:00 AM CDT PLEASE FAX RESULTS TO [phone], ATTN INESSA Loc Mehta MD LAB - HEMATOLOGY OR DERABLES [facility] ([facility]) * (ABNORMAL) COMPREHENSIVE METABOLIC PANEL (02/19/2016 12:14 PM CDT) Only the most recent of4 resultswithin the time period is included. Glucose 82 65 - 99 mg/dL [facility]) Comment: ? Fasting reference interval BUN 11 7 - 25 mg/dL [facility]) Creatinine 0.90 0.50 - 1.05 mg/dL [facility]) Comment: For patients >49 years of age, the reference limit for Creatinine is approximately 13% higher for people identified as -[place]. eGFR non- 75 > OR = 60 mL/min/1 .73m2 [facility]) eGFR 86 > OR = 60 mL/min/1 .73m2 [facility]) BUN/Creatinine Ratio NOT APPLICABLE 6 - 22 (calc) [facility]) Sodium 142 135 - 146 mmol/L [facility]) Potassium 3.7 3.5 - 5.3 mmol/L [facility]) Chloride 101 98 - 110 mmol/L [facility] ([facility]) CO2 28 20 - 31 mmol/L [facility]) Calcium 9.4 8.6 - 10.4 mg/dL [facility] ([facility]) Protein Total 6.8 6.1 - 8.1 g/dL [facility] ([facility]) Albumin 4.3 3.6 - 5.1 g/dL [facility] ([facility]) Globulin 2.5 1.9 - 3.7 g/dL (calc) [facility] ([facility]) Albumin/Globulin Ratio 1.7 1.0 - 2.5 (calc) [facility]) Bilirubin Total 0.5 0.2 - 1.2 mg/dL [facility] ([facility]) Alkaline Phosphatase 115 33 - 130 U/L [facility]) AST 37(H) 10 - 35 U/L [facility]) ALT 40(H) 6 - 29 U/L [facility]) Comment: Test Performed at: [facility] [address] [place], [place] ??[phone] BOWEN GLORIA DO,MPH Blood specimen (specimen) BLOOD SPECIMEN / Unknown 02/19/2016 12:14 PM CDT 02/19/2016 12:15 PM CDT Narrative [facility] ([facility]) - 02/20/2016 9:00 AM CDT PLEASE FAX RESULTS TO [phone], ATTN INESSA Loc Mehta MD LAB - CHEMISTRY ORD ERABLES [facility]) * PATHOLOGY TISSUE (09/25/2015 9:18 AM CDT) Surgical Pathology Tissue CLINICAL HISTORY/PROBLEM LIST: Sepsis. PRE-OP DIAGNOSIS: ??Abdominal pain. FINAL DIAGNOSIS: STOMACH, BIOPSY (A): - ? ANTRAL AND OXYNTIC MUCOSA WITH CHANGES CONSISTENT WITH REACTIVE/CHEMICAL GASTROPATHY - ? NO HELICOBACTER PYLORI IDENTIFIED - ? NO INTESTINAL METAPLASIA OR DYSPLASIA IDENTIFIED ESOPHAGUS, BIOPSY (B): - ? SQUAMOUS MUCOSA WITH NO SIGNIFICANT HISTOPATHOLOGIC CHANGES - ? NO COLUMNAR MUCOSA IDENTIFIED GROSS DESCRIPTION: The specimen is received fixed in formalin in two containers for gross and microscopic examination labeled with the patient's name, Allie Buchanan . Specimen A, gastric biopsies , consists of two fragments of soft, yellow-wright tissue measuring 0.3 and 0.4 cm in greatest dimension. ??The specimen is submitted in toto as A1. Specimen B, esophageal biopsies , consists of three fragments of soft, pink-galindo tissue all measuring 0.3 cm in greatest dimension. ??The specimen is submitted in toto as B1. KE/brandon MICROSCOPIC DESCRIPTION: Microscopic examination supports the diagnosis. JL The performance characteristics of all immunohistochemical and indirect immunofluorescence stains (if any) cited in this report were determined by the Histopathology Laboratory of [facility].?? Some of these tests were developed by our own laboratory and have not been cleared or approved by the US Food and Drug Administration.?The FDA does not require this test to go through premarket FDA review.?These tests are used for clinical purposes. They should not be regarded as investigational or for research.?? This laboratory is certified under the Clinical Laboratory Improvement Amendments (CLIA) as qualified to perform high complexity clinical laboratory testing. This case has been personally reviewed and interpreted by the attending (teaching) pathologist. Final Diagnosis performed by Monico See MD. Electronically signed 09/26/2015 [facility] ([facility]) Other (qualifier value) 09/25/2015 9:18 AM CDT 09/25/2015 11:01 AM CDT Narrative [facility] ([facility]) - 09/26/2015 4:03 PM CDT PROBLEM LIST: Patient Active Problem List: ?? Sepsis PRE-OP DIAGNOSIS: ??abd pain OPERATIVE PROCEDURE / FINDINGS: ??Procedure(s) with comments: EGD EGD W/BIOPSY - Path A: Gastric biopsies Path B: Esophageal biopsies POST-OP DIAGNOSIS: * No post-op diagnosis entered * Collection Date->09/25/15 Collection Time-> 9:18 AM Specimen A->Gastric Specimen B->Esophagus Chula Hassan MD LAB - PATHOLOGY/C YTOLOGY ORDERABLES [facility] ([facility]) * (ABNORMAL) DIFFERENTIAL MANUAL (09/25/2015 1:40 AM CDT) WBC (corrected for NRBC) 11.5 10? 3 /uL [facility] Total Cell Count 100 [facility] Neutrophils Absolute Manual 9.20(H) 1.60 - 7.00 10? 3 /uL [facility] Comment:(BANDS+SEGS) x WBC = NEUT # (ANC) Lymphocyte Absolute Manual 1.96 0.80 - 2.90 10? 3 /uL [facility] Monocytes Absolute Manual 0.35 0.14 - 0.66 10? 3 /uL [facility] Band % Manual 1 0 - 10 % [facility] Neutrophil % Manual 79(H) 30 - 60 % [facility] Lymphocyte % Manual 17(L) 20 - 45 % [facility] Monocytes % Manual 3 2 - 10 % [facility] Platelet Estimate Adequate Adequate [facility] Anisocytosis 1+(A) None [facility] Poikilocytes 1+(A) None [facility] Blood specimen (specimen) BLOOD SPECIMEN / Unknown 09/25/2015 1:40 AM CDT 09/25/2015 1:54 AM CDT David Zarate MD LAB - HEMATOLOGY OR DERABLES Performing Organization Address City/State/[facility] Co de Phone Number [facility] [address] [place] [address] * (ABNORMAL) BASIC METABOLIC PANEL (CALCIUM TOTAL) (09/25/2015 1:40 AM CDT) Only the most recent of3 resultswithin the time period is included. BUN 5(L) 7 - 26 mg/dL [facility] Creatinine 0.7 0.6 - 1.2 mg/dL [facility] Sodium 141 136 - 145 mmol/L [facility] Potassium 4.2 3.5 - 4.5 mmol/L [facility] Chloride 105 98 - 107 mmol/L [facility] CO2 27 22 - 29 mmol/L [facility] Glucose 106 70 - 115 mg/dL [facility] Calcium 9.1 8.4 - 10.2 mg/dL [facility] Anion Gap 13 8 - 18 [facility] BUN/Creatinine Ratio 7 7 - 23 [facility] Osmolality Calculated 275 270 - 300 mOsm/kg [facility] eGFR >60 >60 mL/min/1.7 3 m2 [facility] Blood specimen (specimen) BLOOD SPECIMEN / Unknown 09/25/2015 1:40 AM CDT 09/25/2015 1:48 AM CDT David Zarate MD LAB - CHEMISTRY ORD ERABLES Performing Organization Address [facility]/ZIP Co de Phone Number [address] [phone] * PHOSPHORUS BLOOD (09/25/2015 1:40 AM CDT) Only the most recent of5 resultswithin the time period is included. Phosphorus 3.6 2.3 - 4.7 mg/dL [facility] Blood specimen (specimen) BLOOD SPECIMEN / Unknown 09/25/2015 1:40 AM CDT 09/25/2015 1:48 AM CDT David Zarate MD LAB - CHEMISTRY ORD ERABLES Performing Organization Address [facility] Co de Phone Number [address] [phone] * MAGNESIUM BLOOD (09/25/2015 1:40 AM CDT) Only the most recent of5 resultswithin the time period is included. Magnesium 1.6 1.6 - 2.6 mg/dL [facility] Blood specimen (specimen) BLOOD SPECIMEN / Unknown 09/25/2015 1:40 AM CDT 09/25/2015 1:48 AM CDT David Zarate MD LAB - CHEMISTRY ORD ERABLES Performing Organization Address [facility] Co de Phone Number [address] [phone] * ECHO STRESS TEST W DOBUTAMINE (09/23/2015 12:00 AM CDT) Anatomical Region Laterality Modality Other 09/23/2015 Cody Bowers MD ECHOCARDIOGRAPHY RAD IANT * ECHO STRESS COLOR FLOW AND DOPPLER (09/23/2015 12:00 AM CDT) Anatomical Region Laterality Modality Other 09/23/2015 Cody Bowers MD ECHOCARDIOGRAPHY RAD IANT * TSH (09/21/2015 12:53 PM CDT) TSH 1.782 0.350 - 4.940 uIU/mL [facility] Blood specimen (specimen) BLOOD SPECIMEN / Unknown 09/21/2015 12:53 PM CDT 09/21/2015 12:58 PM CDT David Zarate MD LAB - CHEMISTRY ORD ERABLES [facility] [address] [phone] * GLUCOSE ACCUCHECK (09/21/2015 8:50 AM CDT) Glucose, Fingerstick 111 70-115mg/d L mg/dL [facility] Comment:Crown Buffer: FARHAD Crum 09/21/2015 8:50 AM CDT David Zarate MD LAB - CHEMISTRY ORD ERABLES [facility] ([facility]) * (ABNORMAL) CLOSTRIDIUM DIFFICILE [facility] + TOXIN A+B (09/21/2015 8:47 AM CDT) C difficile Antigen Positive(A) Negative [facility] C difficile Toxin Negative Negative [facility] Stool specimen (specimen) STOOL SPECIMEN / Unknown 09/21/2015 8:47 AM CDT 09/21/2015 8:54 AM CDT Narrative [facility] - 09/21/2015 2:12 PM CDT Specimen Type->Stool Assay Indeterminate. ?? Confirmatory Molecular Testing in progress. David Zarate MD LAB - MICROBIOLOGY ORDERABLES [facility] [address] [place] [address], [facility] [phone] * (ABNORMAL) CLOSTRIDIUM DIFFICILE BY PCR (09/21/2015 8:47 AM CDT) C difficile JORDEN Positive(A ) Negative [facility] Stool specimen (specimen) STOOL SPECIMEN / Unknown 09/21/2015 8:47 AM CDT 09/21/2015 2:01 PM CDT Narrative [facility] - 09/21/2015 2:12 PM CDT POSITIVE: ??Clostridium Difficile Toxin Gene DETECTED by Nucleic Acid Amplification Testing. RESULTS CALLED TO AND READ BACK BY AUBREY AT 2:10 PM, 09/21/2015 Patient MUST be placed on Contact Isolation Precautions. Results from this test should be interpreted in conjunction with other Laboratory and Clinical Data. David Zarate MD LAB - MICROBIOLOGY ORDERABLES [address] [phone] * XR ABDOMEN 2VW (09/21/2015 8:22 AM CDT) Anatomical Region Laterality Modality Other Impressions 09/21/2015 3:59 PM CDT Impression: 1. Mild increased bowel gas, likely ileus. 2. No free intraperitoneal gas. This report has been dictated by Lacie Nunez M.D. (Resident). I, Dr. LIA HERNANDEZ M.D. have personally reviewed and interpreted this examination/study. This report was electronically signed by LIA HERNANDEZ M.D. ??on 09/21/2015 3:59 PM . Narrative 09/21/2015 3:59 PM CDT Exam: Portable abdomen, upright and supine views Date: 09/21/2015 History: 50-year-old female with colitis and worsening abdominal pain. Comparison: None available. Findings: Cholecystectomy clips are present. A cardiac loop recorder projects over the lower left hemithorax. Multiple minimally dilated, gas-filled small bowel loops are seen throughout the abdomen, right hemiabdomen greater than left. A gas-filled bowel loop in the pelvis on the first supine view image may represent gas within the rectum or a small bowel loop. No gas is seen in the distal colon. No free intraperitoneal gas or air-fluid levels are identified. No pathological calcifications are present. The lung bases are clear. The visible bony structures are intact. Procedure Note Stolar, Lia, MD - 10/01/2017 Exam: Portable abdomen, upright and supine views Date: 09/21/2015 History: 50-year-old female with colitis and worsening abdominal pain. Comparison: None available. Findings: Cholecystectomy clips are present. A cardiac loop recorder projects overthe lower left hemithorax. Multiple minimally dilated, gas-filled small bowel loops are seenthroughout the abdomen, right hemiabdomen greater than left. A gas-filledbowel loop in the pelvis on the first supine view image may represent gaswithin the rectum or a small bowel loop. No gas is seen in the distal colon. No free intraperitoneal gas orair-fluid levels are identified. No pathological calcifications arepresent. The lung bases are clear. The visible bony structures areintact. IMPRESSION Impression: 1. Mild increased bowel gas, likely ileus. 2. No free intraperitoneal gas. This report has been dictated by Lacie Nunez M.D. (Resident). I, Dr. LIA HERNANDEZ M.D. have personally reviewed and interpreted thisexamination/study. This report was electronically signed by LIA HERNANDEZ M.D. on 09/21/20153:59 PM . David Zarate MD DIAGNOSTIC IMAGING ORDERABLES * TROPONIN I (09/21/2015 4:15 AM CDT) Only the most recent of2 resultswithin the time period is included. Pathologist [facility] Troponin I <0.010 <0.032 ng/mL [facility] Blood specimen (specimen) BLOOD SPECIMEN / Unknown 09/21/2015 4:15 AM CDT 09/21/2015 4:18 AM CDT David Zarate MD LAB - CHEMISTRY ORD ERABLES [address] [phone] * LACTIC ACID BLOOD (09/21/2015 4:15 AM CDT) Only the most recent of2 resultswithin the time period is included. Pathologist [facility] Lactic Acid-Stat 1.7 0.5 - 2.2 mmol/L [facility] Blood specimen (specimen) BLOOD SPECIMEN / Unknown 09/21/2015 4:15 AM CDT 09/21/2015 4:18 AM CDT David Zarate MD LAB - CHEMISTRY ORD ERABLES Performing Organization Address City/[facility]/ZIP Co de Phone Number [address] [phone] * FOLATE (09/21/2015 4:15 AM CDT) Pathologist [facility] Folate 14.9 7.0 - 31.4 ng/mL [facility] Blood specimen (specimen) BLOOD SPECIMEN / Unknown 09/21/2015 4:15 AM CDT 09/21/2015 6:24 AM CDT David Zarate MD LAB - CHEMISTRY ORD ERABLES Performing Organization Address [facility] Co de Phone Number [address] [phone] * CK + CKMB PANEL (09/21/2015 4:15 AM CDT) Only the most recent of2 resultswithin the time period is included. Pathologist [facility] CK Total 61 30 - 200 Units/L [facility] CK-MB 1.3 0.0 - 6.6 ng/mL [facility] Blood specimen (specimen) BLOOD SPECIMEN / Unknown 09/21/2015 4:15 AM CDT 09/21/2015 4:18 AM CDT David Zarate MD LAB - CHEMISTRY ORD ERABLES Performing Organization Address [facility] Co de Phone Number [address] [phone] * (ABNORMAL) VITAMIN B12 (09/21/2015 4:15 AM CDT) Pathologist [facility] Vitamin B12 >2,000(H) 213 - 816 pg/mL [facility] Blood specimen (specimen) BLOOD SPECIMEN / Unknown 09/21/2015 4:15 AM CDT 09/21/2015 6:24 AM CDT David Zarate MD LAB - CHEMISTRY ORD ERABLES [facility] [address] [phone] * EKG 12-LEAD (09/21/2015 12:00 AM CDT) Only the most recent of2 resultswithin the time period is included. EKG [facility] Comment: Exam Date/Time: ?? Sep 21 2015 07:22:16 Test Reason : QTc interval Blood Pressure : / mmHG Vent. Rate : 110 BPM ? Atrial Rate : 110 BPM ?? P-R Int : 000 ms ?QRS Dur : 058 ms ?QT Int : 462 ms ? P-R-T Axes : 000 025 066 degrees ?? QTc Int : 625 ms Sinus tachycardia Cannot rule out Anterior infarct , age undetermined Poor P wave progression Abnormal ECG When compared with ECG of 20-SEP-2015 21:06, No significant change was found Confirmed by Trupti BOB, KALANI ([id number]), tape editor Manuel De La Cruz ([id number]) on 10/07/2015 1:30:51 PM Referred By: REFERRING NO ? Confirmed By:KALANI BOB M.D. 09/21/2015 David Zarate MD ECG ORDERABLES [facility] * (ABNORMAL) URINALYSIS W/MICROSCOPIC NO CULTURE (09/20/2015 10:45 PM CDT) Color UA [place](A) Straw, Yellow, Colorless, Light Yellow [facility] Clarity UA Hazy(A) Clear [facility] Specific [place] UA 1.024 1.001 - 1.030 [facility] pH UA 5.0 5.0 - 8.0 [facility] Protein UA 20 <=20 mg/dL [facility] Glucose UA Negative Negative mg/dL [facility] Ketone UA Negative Negative mg/dL [facility] Bilirubin UA Negative Negative mg/dL [facility] Blood UA Moderate(A) Negative [facility] Nitrite UA Negative Negative [facility] Leukocyte Esterase Negative Negative [facility] Urobilinogen UA <2.0 <2.0 mg/dL [facility] RBC UA >100(H) 0 - 8 /HPF [facility] WBC UA 25(H) 0 - 2 /HPF [facility] Squamous Epithelial Cells UA 2(H) 0 - 1 /HPF [facility] Mucus UA Many(A) None /LPF [facility] Hyaline Casts UA 3(H) 0 - 2 /LPF [facility] Urine specimen (specimen) 09/20/2015 10:45 PM CDT 09/20/2015 10:53 PM CDT David Zarate MD LAB - URINALYSIS OR DERABLES [address] [phone] * CULTURE URINE (09/20/2015 10:45 PM CDT) Culture Urine No Growth of >=100 CFU/ml after 48 Hours [facility] Urine specimen (specimen) (Urine, Long Cath) 09/20/2015 10:45 PM CDT 09/20/2015 10:53 PM CDT Narrative [facility] - 09/23/2015 12:39 PM CDT Specimen Type->Urine David Zarate MD LAB - MICROBIOLOGY ORDERABLES [address] [phone] * (ABNORMAL) BLOOD GASES ART (09/20/2015 10:38 PM CDT) pH Arterial 7.38 7.35 - 7.45 [facility] pCO2 Arterial 31(L) 35 - 45 mmHg [facility] pO2 Arterial 91 77 - 101 mmHg [facility] HCO3 Arterial 18.1(L) 22.0 - 26.0 mmol/L [facility] TCO2 Arterial 19.0(L) 25.0 - 29.0 mmol/L [facility] Base Excess Arterial -5.7(L) -2.0 - 2.0 mmol/L [facility] Hemoglobin Arterial 14.9 12.0 - 15.5 g/dL [facility] Oxyhemoglobin Arterial 96.6 95.0 - 100.0 % [facility] Carboxyhemoglobin 0.2 0.0 - 3.0 % [facility] Methemoglobin 0.4 0.0 - 2.0 % [facility] FI O2 Arterial 21.0 % [facility] Blood specimen (specimen) BLOOD SPECIMEN / Unknown 09/20/2015 10:38 PM CDT 09/20/2015 10:42 PM CDT Narrative [facility] - 09/20/2015 10:44 PM CDT FIO2->21 David Zarate MD LAB - BLOOD GASES O RDERABLES Performing Organization Address City/State/[facility] Co de Phone Number [address] [phone] * PT-INR [facility] (09/20/2015 9:58 PM CDT) PT 14.0 12.1 - 14.8 Seconds [facility] INR 1.1 See Comment [facility] Comment: Suggested therapeutic range for low-intensity coumadin therapy for venous thromboembolism prophylaxis is an INR of 2.0-3.0. ??For high risk patients (Mitral Valve Prosthesis, Atrial Fibrillation, history of TIA/stroke), suggested prophylactic therapeutic range is an INR of 2.5-3.5. Blood specimen (specimen) BLOOD SPECIMEN / Unknown 09/20/2015 9:58 PM CDT 09/20/2015 10:22 PM CDT Narrative [facility] - 09/20/2015 10:45 PM CDT Is patient on Heparin, Argatroban or Dabigatran?->N David Zarate MD LAB - COAGULATION O RDERABLES [address] [phone] * (ABNORMAL) C-REACTIVE PROTEIN (09/20/2015 9:58 PM CDT) Pathologist [facility] C-Reactive Protein 8.9(H) <=0.5 mg/dL [facility] Blood specimen (specimen) BLOOD SPECIMEN / Unknown 09/20/2015 9:58 PM CDT 09/20/2015 10:22 PM CDT David Zarate MD LAB - CHEMISTRY ORD ERABLES [address] [phone] * (ABNORMAL) COMPLEMENT TOTAL (09/20/2015 9:58 PM CDT) Pathologist [facility] Complement Total CH50 >60(H) 42 - 60 U/mL [facility] ([facility]) Blood specimen (specimen) BLOOD SPECIMEN / Unknown 09/20/2015 9:58 PM CDT 09/20/2015 10:22 PM CDT Narrative [facility] ([facility]) - 09/23/2015 3:20 PM CDT Performed at: ??01 - [facility] [address] ??[id number] Medical Coder: Scott Pollock PhD, Phone: ??[phone] David Zarate MD LAB - CHEMISTRY ORD ERABLES [facility] ([facility]) * CULTURE BLOOD (09/20/2015 9:58 PM CDT) Pathologist [facility] Culture Blood No Growth at 5 days [facility] Blood specimen (specimen) (Venous, Peripheral) 09/20/2015 9:58 PM CDT 09/20/2015 10:33 PM CDT David Zarate MD LAB - MICROBIOLOGY ORDERABLES Performing Organization Address [facility]/ZIP Co de Phone Number [address] [phone] * ERYTHROCYTE SEDIMENTATION RATE (09/20/2015 9:58 PM CDT) Erythrocyte Sedimentation Rate Westergren 12 0 - 20 MM/HR [facility] Blood specimen (specimen) BLOOD SPECIMEN / Unknown 09/20/2015 9:58 PM CDT 09/20/2015 10:24 PM CDT David Zarate MD LAB - HEMATOLOGY OR DERABLES Performing Organization Address [facility] Co de Phone Number [address] [phone] * COMPLEMENT C4 (09/20/2015 9:58 PM CDT) Complement C4 35 15 - 57 mg/dL [facility] Blood specimen (specimen) BLOOD SPECIMEN / Unknown 09/20/2015 9:58 PM CDT 09/20/2015 10:25 PM CDT David Zarate MD LAB - SEROLOGY ORDE RABLES Performing Organization Address [facility] Co de Phone Number [address] [phone] * LIPASE BLOOD (09/20/2015 9:58 PM CDT) Lipase 11 8 - 78 Units/L [facility] Blood specimen (specimen) BLOOD SPECIMEN / Unknown 09/20/2015 9:58 PM CDT 09/20/2015 10:25 PM CDT David Zarate MD LAB - CHEMISTRY ORD ERABLES Performing Organization Address [facility]/ZIP Co de Phone Number [address] [phone] * AMYLASE BLOOD (09/20/2015 9:58 PM CDT) Amylase 69 25 - 125 Units/L [facility] Blood specimen (specimen) BLOOD SPECIMEN / Unknown 09/20/2015 9:58 PM CDT 09/20/2015 10:25 PM CDT David Zarate MD LAB - CHEMISTRY ORD ERABLES [address] [phone] * COMPLEMENT C3 (09/20/2015 9:58 PM CDT) Complement C3 170 82 - 193 mg/dL [facility] Blood specimen (specimen) BLOOD SPECIMEN / Unknown 09/20/2015 9:58 PM CDT 09/20/2015 10:25 PM CDT David Zarate MD LAB - CHEMISTRY ORD ERABLES Performing Organization Address City/[facility] Co de Phone Number [address] [phone] * XR CHEST 1VW PORTABLE (09/20/2015 9:33 PM CDT) Anatomical Region Laterality Modality Chest Other Impressions 09/21/2015 8:11 AM CDT Impression: No active pulmonary disease. Report dictated by Felipe Del Toro MD (resident). This report was approved ??by Felipe Del Toro ?? on 09/21/2015 7:14 AM . I, Dr. LIA HERNANDEZ M.D. have personally reviewed and interpreted this examination/study. This report was electronically signed by LIA HERNANDEZ M.D. ??on 09/21/2015 8:11 AM . Narrative 09/21/2015 8:11 AM CDT Exam: PX CHEST 1 VW Exam Date: 09/20/2015 9:34 PM History: sob, chest pain Comparison: No prior study is available for comparison. Findings: The lung volumes are low. There is no consolidation, pleural effusion or pneumothorax. The cardiac and mediastinal silhouettes are normal. The visible bony thorax is intact. A loop recorder device overlies the cardiac silhouette. Procedure Note Lia Hernandez MD - 10/01/2017 Exam: PX CHEST 1 VW Exam Date: 09/20/2015 9:34 PM History: sob, chest pain Comparison: No prior study is available for comparison. Findings: The lung volumes are low. There is no consolidation, pleural effusion orpneumothorax. The cardiac and mediastinal silhouettes are normal. Thevisible bony thorax is intact. A loop recorder device overlies the cardiacsilhouette. IMPRESSION Impression: No active pulmonary disease. Report dictated by Felipe Del Toro MD (resident). This report was approved by Felipe Del Toro on 09/21/2015 7:14 AM . I, Dr. LIA HERNANDEZ M.D. have personally reviewed and interpreted thisexamination/study. This report was electronically signed by LIA HERNANDEZ M.D. on 09/21/20158:11 AM . David Zarate MD DIAGNOSTIC IMAGING ORDERABLES Care Teams Office Services Assistant Relationship Specialty Start Date End Date Warren Cowan MD [address] [place] [id number] PCP - General Family Medicine 02/20/16
--- OUTSIDE RECORDS SUMMARY | 2024-07-07 16:56 | XMS_ITS | Encounter Summary ---
Author Organization [facility] Address [address] [place] [address] Care Team Providers Care Brush Material Preparer Name Role Phone Warren Cowan MD Primary Care Provider + Reason for Visit * Reason Onset Date Comments Consultation 02/17/2016 * Auth/Cert Specialty Diagnoses / Procedures Referred By Morgan t Referred To Contact Diagnoses Vaginal tumor Pain, pelvic, female Vaginal tumor Pain, pelvic, female Procedures LAPAROSCOPIC SALPINGO OOPHORECTOMY PROCEDURE NOT LISTED - SEE COMMENTS LAPAROTOMY EXPLORATORY Referral ID Status Reason Start Date Expiration Date Visits Re quested Visits Authorized [id number] 1 1 Encounter Details Date Type Department Care Team (Late st Contact Info) Description 02/23/2016 7:30 AM CDT - 02/23/2016 10:00 AM CDT Surgery [facility] PERIOPERATIVE [address] [place] [address] Rubin Hall MD Laparoscopic bilateral salpingo-oophorectomy, lysis of adhesions.Cystostomy and repair Surgery Details Date/Time Status Location OR Service Patient Class Case Class Case Type Trauma Case? 02/23/2016 7:30 AM Posted [facility] MAIN OR OR 10 Gynecology Surgery Day Care Over Night Elective > 5 days Panel 1 Procedure LRB Anes Op Region Wound Class Comments Laparoscopic bilateral salpingo-oophorectomy, lysis of adhesions.Cystostomy and repair Bilateral General Abdomen Clean Contaminated LYSIS ADHESIONS N/A Abdomen Clean Contamin ated CYSTOSTOMY N/A General Bladder Clean Contaminated Surgeon Surgeon Role Service Panel Rubin Hall MD Primary Gynecology 1 Deysi Green MD Resident - Assisting Gynecology 1 Felisa Henry MD Resident - Assisting Gynecol ogy 1 Special Needs documented in this encounter Social History Tobacco Use Types Packs/Day Years Used Date Smoking Tobacco: Never Smokeless Tobacco: Never Alcohol Use Standard Drinks/Week Comments No 0 (1 standard drink = 0.6 oz pur e alcohol) Sex and Gender Information Value Date Recorded Sex Assigned at Not on file Gender Identity Not on file Sexual Orientation Not on file documented as of this encounter Last Filed Vital Signs Vital Sign Reading Time Taken Comments Blood Pressure 141/99 02/23/2016 4:00 PM CDT Pulse 96 02/23/2016 4:00 PM CDT Temperature 36.7 ??C (98.1 ??F) 02/23/2016 4:00 PM CD T Respiratory Rate 16 02/23/2016 11:42 AM CDT Oxygen Saturation 97% 02/23/2016 4:00 PM CDT Inhaled Oxygen Concentration - - Weight 93 kg (205 lb) 02/18/2016 11:04 AM CDT Height 165.1 cm (5' 5 ) 02/18/2016 11:04 AM CDT Body Mass Index 34.11 02/18/2016 11:04 AM CDT documented in this encounter Functional Status Functional Status Response Date of [...] person have difficulty concentrating/remembering/making decisions? No 02/23/2016 documented as of this encounter Discharge Summaries * Anabelle Lynch RN - 02/23/2016 7:52 PM CDT Discharged home at 1830 per after seen by Dr. Ibarra. Tolerating regular food and gordon is patent with clear yellow urine. Vitals are stable. Will empty catherter and to see Dr. Hall on March 02 in the office. Rx for percocet, colace, miralax, and ibuprofen. Discharge papers read, reviewed, and signed. Anabelle Lynch RN 02/23/2016 7:55 PM documented in this encounter Medications at Time of Discharge Medication Sig Dispensed Refills Start Date End Date ALPRAZolam (XANAX) 0.25 MG tablet Take 0.25 mg by mouth 3 times daily as needed for Anxiety amitriptyline (ELAVIL) 25 MG tablet Take 25 mg by mouth at bedtime atorvastatin (LIPITOR) 20 MG tablet Take 20 mg by mouth at bedtime Calcium Carb-Cholecalciferol (CALCIUM 1000 + D PO) docusate sodium (COLACE) 100 MG capsule Take 1 Cap by mouth 2 times daily 60 Cap 3 02/23/2016 folic acid (FOLVITE) 1 MG tablet Take 1 mg by mouth once daily HYDROcodone-acetaminophe n (NORCO) 7.5-325 MG tablet Take 1 Tab by mouth every 4 hours as needed for Pain ibuprofen (MOTRIN) 600 MG tablet Take 1 Tab by mouth every 6 hours as needed for Pain 60 Tab 0 02/23/2016 IRON PO Take 65 mg by mouth once daily meclizine (ANTIVERT) 25 MG tablet Take 25 mg by mouth 3 times daily as needed for Dizziness melatonin 5 MG tablet Take 6 mg by mouth at bedtime metaxalone (SKELAXIN) 800 MG tablet Take 800 mg by mouth 3 times daily as needed for Muscle Spasms methylPREDNISolone (MEDROL) 4 MG tablet Take 4 mg by mouth once daily milnacipran (SAVELLA) 50 MG tablet Take 50 mg by mouth 2 times daily nitrofurantoin monohyd macro crystals (MACROBID) 100 MG capsule Take 100 mg by mouth 2 times daily with morning and evening meal oxybutynin (OXYTROL) 3.9 MG/24HR patch Apply 1 Patch to skin every 3 days oxyCODONE-acetaminophen (PERCOCET) 5-325 MG tablet Take 1 Tab by mouth every 4 hours as needed 40 Tab 0 02/23/2016 pantoprazole (PROTONIX) 40 MG packet Take 40 mg by mouth once daily pilocarpine hcl, oral, (SALAGEN) 5 MG tablet Take 5 mg by mouth 3 times daily polyethylene glycol 3350 (MIRALAX) powder Take 17 g by mouth once daily 225 g 0 02/23/2016 Potassium (POTASSIMIN PO) Take 595 mg by mouth once daily pregabalin (LYRICA) 150 MG capsule Take 150 mg by mouth 3 times daily Psyllium (METAMUCIL PO) Take 1 oz by mouth as needed sertraline (ZOLOFT) 100 MG tablet Take 100 mg by mouth once daily vitamin D3 (CHOLECALCIFEROL) 400 UNIT tablet Take 400 Units by mouth once daily documented as of this encounter Progress Notes * Vilma Johnson RN - 02/23/2016 7:29 AM CDT Labs in patient paper chart. type and screen drawn per Dr. Raman's order. documented in this encounter H&P Notes * Rubin Hall MD - 02/18/2016 10:42 AM CDT Pre Op History & Physical Per chart review Pre-Operative Diagnosis: vaginal mass, bilateral ovarian cysts Planned Procedure: laparoscopic bilateral salpingo-oopherectomy, transvaginal ressection of mass, possible laparotomy Surgeon: Rubin Hall MD History: 50 y.o. with a vaginal vault mass measuring 3.3 x 2.7 cm with anel microcalcifications, the right ovary measures 2.4 x 1.9 x 1.1 cm containing a simple cyst measuring 1,1 cm which is decrease from 2.7 cm, the left ovary meassures 1.7 x 1.7 x .0 cm and a simple cyst measuring 1.1 cm. The patient is r eferred for surgery. She has chronic pain syndrome and she is convinced that the pelvic pain is related to her ovaries and the vaginal mass and she is concerned about cancer. PMH: Past Medical History Diagnosis Date ??? SLE (Kirsten encephalitis) ??? RA (rheumatoid arthritis) ??? Sjoegren syndrome ??? Fibromyalgia PSH: Past Surgical History Procedure Laterality Date ??? Hysterectomy OB: OB History No data available MECHANIC: Please See Above SOC: History Social History ??? Marital Status: N/A Spouse Name: N/A Number of Children: N/A ??? Years of Education: N/A Occupational History ??? Not on file. Social History Main Topics ??? Smoking status: Not on file ??? Smokeless tobacco: Not on file ??? Alcohol Use: Not on file ??? Drug Use: Not on file ??? Sexual Activity: Not on file Other Topics Concern ??? Not on file Social History Narrative ??? No narrative on file Allergies not on file No current facility-administered medications for this encounter. No current outpatient prescriptions on file. Exam: There were no vitals filed for this visit. Physical Exam: Psychologic:alert, well appearing, and in no distress Neurologic: alert, oriented, normal speech, no focal findings or movement disorder noted Skin: normal coloration and turgor, no rashes HEENT: normocephalic, atraumatic Lymphatic: no palpable lymphadenopathy Neck: supple, no significant adenopathy Respiratory: clear to auscultation, no wheezes, rales or rhonchi, symmetric air entry Cardiovascular:regular rate and rhythm, no murmurs Abdomen: soft, non tender, normal bowel sounds, no palpable masses, no organomegaly, no inguinal hernia Extremities: peripheral pulses normal, no pedal edema, no clubbing or cyanosis, no pedal edema noted Hematologic: within normal limits Gynecologic: Breast: Negative External genitalia: wnl Urethral meatus: wnl Urethra: wnl Bladder: wnl Vagina: there is a 3 x 3 cm mass in the vaginal cuff Cervix: absent Uterus: absent Adnexa / parametria: wnl Anus/ perineum: wnl Rectal: not done Stool Guaiac: not done Tumor measurements: Location: vaginal cuff Size: 3 x 3 cm Assessment /Plan: 1.- 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 No results for input(s): WBC, HGB, HCT, PLTCOUNT in the last 64188 hours. No results for input(s): SODIUM, POTASSIUM, CHLORIDE, CO2, BUN, CREATININE, GLUCOSE, CALCIUM in thelast 60613 hours. Assessment/Plan: 50 y.o. With chronic pain, and 3x3cm pelvic mass. Plan to proceed with laparoscopic bilateral salpingo-oopherectomy, transvaginal ressection of mass, possible laparotomy Risks and Benefits of surgery were reviewed with the patient during her last clinic appointment, including but not limited to: infection, bleeding, possible need for blood transfusion, damage to surrounding structures (bladder, bowel, ureters). Felisa Henry MD 02/18/2016 10:46 AM I agree with this note, I have taken the history, I have examined then patient, and I have proposedthe surgery, and I have explained possible complications including infection, bleeding and organ damage. documented in this encounter OR Notes * Operative - Rubin Hall MD - 02/23/2016 12:38 PM CDT [facility] - [place] [id number] Operative Report PATIENT NAME: ALLIE HUSTON MR#: [id number] DATE OF : 1965 CSN: [id number] DATE OF ADMISSION: 02/23/2016 ROOM#: [id number] DATE OF OPERATION: 02/23/2016 PREOPERATIVE DIAGNOSIS: Pelvic mass and mass at the top of the vagina, status post hysterectomy. POSTOPERATIVE DIAGNOSIS: Pelvic mass and mass at the top of the vagina, status post hysterectomy, plus adhesions between the omentum and the anterior abdominal wall that took 30 minutes to lyse. SURGEON: Rubin Hall M.D. FACTORY HELPER: Dr. Henry and Dr. Green, [facility] INVESTMENT COUNSELOR resident. ANESTHESIA: General endotracheal. COMPLICATIONS: None. ESTIMATED BLOOD LOSS: 50 mL. SPECIMEN SENT: Both tubes and ovaries. PROCEDURE: Laparoscopic bilateral salpingo-oophorectomy, lysis of adhesions. Cystostomy and repair. DRAINS: None. REASON FOR THIS PROCEDURE: This 50-year-old white female developed pelvic pain and she did have a hysterectomy in the past for benign reasons and a CT revealed a mass in the pelvis. Because of the possibility of this being related to the malignancy, the patient was referred to the division of MECHANIC Oncology at [facility] here at [facility] and we proceeded to schedule the above-described surgery. OPERATIVE FINDINGS: Before the procedure was started, we did a pelvic examination, and there was a 3 x 3 cm mass effect at the end of the vagina connected with the cuff. Then we connected the laparoscope and we could see that there were significant adhesions between the omentum and the anterior abdominal wall especially towards the right side and there were adhesions between the rectosigmoid and the left ovary and on the pelvis. The ovaries were lying in the pelvis and they were connected to the vaginal cuff with adhesions. It is our feeling at this point that the mass that were palpated through the vagina could have been the ovaries stuck to the cul-de-sac and the vaginal cuff. We lysed adhesions between the ovaries and the surrounding small bowel and large bowel. We identified the infundibulopelvic ligament. We skeletonized it and we proceeded to coagulate in 3 different areas with bipolar current. After this, we divided the infundibulopelvic ligament and we dissected the right tube and ovary completely, and we deposited it into the cul-de- sac. We did the same thing on the left side and we had to dissect the rectosigmoid that was overlying this area. After freeing the tube and ovary, we skeletonized the infundibulopelvic ligament and then we used bipolar current to coagulate in 3 different areas and monopolar to suction the infundibulopelvic ligament and then we used monopolar to completely free the adnexa from the rectosigmoid and both of them were deposited in cul-de-sac. After this, we went after this questionable mass located at the vaginal cuff on vaginal examination, and since the uterus was absent from previous hysterectomy, we dissected the area and we could not locate this questionable mass and in dissecting the bladder from the vaginal cuff, we produced a cystostomy, which we judged inherent to the procedure because under the absence of the uterus, the bladder was less grown into the vaginal cuff. This opening was approximately 5 mm and we repaired with four 3-0 Vicryl interrupted sutures with extracorporeal knotting. Four knots were placed in everyone of them. Good closure of the cystostomy was accomplished. At this point, we repeated the pelvic examination and the mass that was described in the cul-de-sac which much less prominent suggesting that there was only a scarring from the hysterectomy, but not a true mass there. So at the end of the procedure, we removed both tubes and ovaries. We lysed the adhesions, and we had repair of cystostomy that was performed at the time of dissecting the bladder away from the vaginal cuff. No complications. The patient will be sent home either today or tomorrow. She will wear the Gordon catheter for a total of 7-10 days to allow healing. There were no complications. NAME: ALLIE HUSTON DICTATOR: RUBIN HALL M.D. DICTATED FOR: FPX/MAJORL JOB ID: [id number] Operative Report documented in this encounter Plan of Treatment Not on file documented as of this encounter Procedures Procedure Name Priority Date/Time Associated Diagnosis Comments LAB RESULTS ORDER 02/25/2016 1:4 7 AM CDT CARDIAC RHYTHM STRIP ORDER 02/25/2016 1:47 AM CDT URINALYSIS REFLEX MICROSCOPIC REFLEX CULTURE STAT 02/23/2016 10:43 AM CDT Vaginal tumor Pain, pelvic, female URINE MICROSCOPIC ONLY REFLEX TO CULTURE Routine 02/23/2016 10:43 AM CDT Vaginal tumor Pain, pelvic, female PATHOLOGY TISSUE EXAM (STL) Routine 02/23/2016 9:08 AM CDT Vaginal tumor Pain, pelvic, female BLOOD TYPE VERIFICATION Routine 02/23/2016 8:35 AM CDT CYSTOSTOMY 02/23/2016 7:27 AM CDT Vaginal tumor Pain, pelvic, female Special Needs LYSIS ADHESIONS 02/23/2016 7:27 AM CDT Vaginal tumor Pain, pelvic, female Special Needs LAPAROSCOPIC SALPINGECTOMY AND/OR OOPHORECTOMY 02/23/2016 7:27 AM CDT Vaginal tumor Pain, pelvic, female Special Needs TYPE + SCREEN PANEL Pre-Op 02/23/2016 7 :16 AM CDT documented in this encounter Results * LAB RESULTS ORDER (02/25/2016 1:47 [...] Straw, Yellow, Dark Yellow 02/23/2016 11:16 AM T [facility] Clarity UA Cloudy 02/23/2016 11:16 AM T [facility] Specific Keavy UA 1.028 1.005 - 1.030 02/23/2016 11:16 AM T [facility] pH UA 5.5 5.0 - 8.0 pH 02/23/2016 11:16 AM [facility] Protein UA Trace(A) Negative 02/23/2016 11:16 AM [facility] Blood UA 3+(A) Negative 02/23/2016 11:16 AM [facility] Leukocyte UA Negative Negative 02/23/2016 11:16 AM [facility] Nitrite UA Negative Negative 02/23/2016 11:16 AM T [facility] Glucose UA Negative Negative 02/23/2016 11:16 AM T [facility] Ketone UA Trace(A) Negative 02/23/2016 11:16 AM [facility] Bilirubin UA Negative Negative 02/23/2016 11:16 AM [facility] Urobilinogen UA 0.2 0.1 - 1.0 EU/dL 02/23/2016 11:16 AM [facility] WBC UA Auto 2-5 0-2, 2-5 # /hpf 02/23/2016 11:16 AM [facility] RBC UA Auto >100(A) 0-2, 2-5 # /hpf 02/23/2016 11:16 AM [facility] Hyaline Casts UA Auto Reflex to manual(A) 0 - 2 #/lpf 02/23/2016 11:16 AM [facility] Reflex Status Culture not indicated 02/23/2016 11:16 AM [facility] Urine URINE SPECIMEN OBTAINED VIA INDWELLING URINARY CATHETER / Unknown Collection / Unknown 02/23/2016 10:43 AM CDT 02/23/2016 10:57 AM CDT Rubin Hall MD LAB - URINALYSIS OR DERABLES Performing Organization Address [facility] de Phone Number [facility] [address] [place] [address] * (ABNORMAL) URINALYSIS MICROSCOPIC ONLY W/REFLEX CULTURE (02/23/2016 10:43 AM CDT) Pathologist [facility] Epithelial Cell UA 5-10(A) 0-2, 2-5 # /hpf 02/23/2016 11:20 AM CDT [facility] Hyaline Casts 2-5(A) 0 - 2 # /lpf 02/23/2016 11:20 AM CDT [facility] Urine URINE SPECIMEN OBTAINED VIA INDWELLING URINARY CATHETER / Unknown Collection / Unknown 02/23/2016 10:43 AM CDT 02/23/2016 10:57 AM CDT Rubin Hall MD LAB - URINALYSIS OR DERABLES Performing Organization Address [facility] de Phone Number [facility] [address] [place], [place] [id number] * GROSS + MICRO EXAM (STL) (02/23/2016 9:08 AM CDT) Case Report Surgical Pathology Report ? Case: [id number] ? Authorizing Provider: ??Rubin Hall MD ? Collected: ? 02/23/2016 09:08 AM ? Ordering Location: ? [facility] ? Received: ?02/23/2016 11:10 AM ? Pathologist: ? Joceline Soliz MD ? Specimen: ?Ovary with Tube, BI-LATERAL TUBES and OVARIES ? 02/24/2016 8:50 AM CDT [facility] Final Diagnosis 1. ??Bilateral ovaries and fallopian tubes, hysterectomy and salpingo-oophorec juan carlos: -- ??No evidence of malignancy [facility] 02/24/2016 8:50 AM T [facility] Gross Description Received in formalin in a container labeled WetzelRuth garciaa, bilateral tubes and ovaries. ??The container holds [...] a patent lumen with no focal lesion. ??Nuclear Logging Engineer sections are submitted as follows: ?? A1-A2 - smaller ovary with attached fallopian tube segment A3-A4 - larger ovary with attached fallopian tube segment DYT/rtc 02/24/2016 8:50 AM CDT [facility] Microscopic Description Sections reveal bilateral ovaries and fallopian tubes with benign histology. ??The fallopian tubes show small paratubal cysts. ??The ovaries are histologically unremarkable. ?? GMC/eh 02/24/2016 8:50 AM CDT [facility] Pathology/Cytolo gy FALLOPIAN TUBE AND OVARY, CS / Unknown 02/23/2016 9:08 AM CDT 02/23/2016 11:10 AM CDT Rubin Hall MD LAB - PATHOLOGY/CYT OLOGY ORDERABLES Performing Organization Address [facility] Co de Phone Number [facility] [address] [place] [address] * BLOOD TYPE VERIFICATION (02/23/2016 8:35 AM CDT) ABO A 02/23/2016 8:44 AM CDT [facility] Rh Type Positive 02/23/2016 8:44 AM CDT [facility] Miscellaneous samples (specimen) BLOOD SPECIMEN / Unknown Venipuncture / Unknown 02/23/2016 8:35 AM CDT 02/23/2016 8:39 AM CDT Rubin Hall MD LAB - BLOOD BANK OR DERABLES Performing Organization Address City/[facility] Co de Phone Number [facility] [address] * TYPE + SCREEN PANEL (02/23/2016 7:16 AM CDT) ABO A 02/23/2016 8:44 AM CDT [facility] Rh Type Positive 02/23/2016 8:44 AM CDT [facility] Comment:History check perfor med. No retype required. Antibody Screen Negative 02/23/2016 8:44 AM CDT [facility] Miscellaneous samples (specimen) BLOOD SPECIMEN / Unknown Venipuncture / Unknown 02/23/2016 7:16 AM CDT 02/23/2016 7:24 AM CDT Santos Raman MD LAB - BLOOD BANK ORD ERABLES [facility] [address] [place] [address], [facility] documented in this encounter Visit Diagnoses Diagnosis Vaginal tumor Neoplasm of unspecified nature of other genitourinary organs Pain, pelvic, female Unspecified symptom associated with female genital organs Pelvic mass in female Abdominal or pelvic swelling, mass or lump, unspecified site Vaginal tumor Neoplasm of unspecified nature of other genitourinary organs Pain, pelvic, female Unspecified symptom associated with female genital organs documented in this encounter Administered Medications Inactive Administered Medications - up to 3 most recent administrations Medication Order MAR Action Action Date Dose Rate Site 0.9% nacl irrigation solution PRN, Starting on Tue02/23/16 at 0656, Until Tue02/23/16 at 1041, Intra-op $ Given 02/23/2016 6:56 AM CDT 500 mL See Comments bupivacaine 0.5% - EPINEPHrine 1:200,000 (PF) injection PRN, Starting on Tue02/23/16 at 1026, Until Tue02/23/16 at 1041, Intra-op $ Given 02/23/2016 10:26 AM CDT 20 mL Operative Site fentaNYL (PF) (SUBLIMAZE) injection 50 mcg 50 mcg, Intravenous, EVERY 3 MIN PRN, Mild Pain, Starting on Tue02/23/16 at 1048, Until Tue02/23/16 at 1133, Maximum total of 4 doses. If patient reaches max total dose, please consult anesthesiologist prior to further administration of pain meds. Hold pain meds if there are signs of hypoventilation., PACU $ Given 02/23/2016 11:15 AM CDT 50 mcg $ Given 02/23/2016 10:55 AM CDT 50 mcg ketorolac (TORADOL) injection 30 mg 30 mg, Intravenous, EVERY 6 HOURS, 4 doses, First dose on Tue02/23/16 at 1200, Last dose on Tue02/24/16 at 0600, Post-op $ Given 02/23/2016 4:58 PM CDT 30 mg lactated ringers infusion at 20 mL/hr, Intravenous, PRE-OP CONTINUOUS, Starting on Tue02/23/16 at 0645, Until Tue02/23/16 at 1133, Pre-op $ New Bag/Syringe 02/23/2016 9:30 AM CDT $ New Bag/Syringe 02/23/2016 8:15 AM CDT $ New Bag/Syringe 02/23/2016 7:22 AM CDT 20 mL/hr 20 mL/ hr lactated ringers infusion at 125 mL/hr, Intravenous, CONTINUOUS, Starting on Tue02/23/16 at 1145, Until Tue02/23/16 at 1930, Post-op $ New Bag/Syringe 02/23/2016 12:46 PM CDT 125 mL/hr lactated ringers irrigation solution PRN, Starting on Tue02/23/16 at 1036, Until Tue02/23/16 at 1041, Intra-op $ Given 02/23/2016 10:36 AM CDT 100 mL Operative Site oxyCODONE-acetaminoph en (PERCOCET) 5-325 MG tablet 1 Tab 1 tablet, Oral, EVERY 4 HOURS PRN, Moderate Pain, Starting on Tue02/23/16 at 1133, Until Tue02/23/16 at 1930, Post-op $ Given 02/23/2016 6:02 PM CDT 1 tablet $ Given 02/23/2016 1:40 PM CDT 1 tablet pregabalin (LYRICA) capsule 150 mg 150 mg, Oral, 3 TIMES DAILY, First dose on Tue02/23/16 at 1145, Until Discontinued $ Given 02/23/2016 1:40 PM CDT 150 mg documented in this encounter Active and Recently Administered Medications Times are shown in CDT. Scheduled Medication Order 02/21/2016 02/22/2016 02/23/2016 ketorolac (TORADOL) injection 30 mg (CANCELED) 30 mg, Intravenous, EVERY 6 HOURS, 4 doses, First dose on Tue02/23/16 at 1200, Last dose on Tue02/24/16 at 0600, Post-op 1658 ($ Given - Prov ider: Anabelle Lynch RN)1800 (Due) pregabalin (LYRICA) capsule 150 mg (CANCELED) 150 mg, Oral, 3 TIMES DAILY, First dose on 8/22/16 at 1145, Until Discontinued 1145 (Not Administer ed - Provider: Anabelle Lynch RN - Reason: Medication not available)1340 ($ Given - Provider: Anabelle Lynch RN) Continuous Medication Order 02/21/2016 02/22/2016 02/23/2016 lactated ringers infusion (CANCELED) at 20 mL/hr, Intravenous, PRE-OP CONTINUOUS, Starting on Tue02/23/16 at 0645, Until Tue02/23/16 at 1133, Pre-op 0722 ($ New Bag/Syri nge - Provider: Vilma Johnson RN)0815 ($ New Bag/Syringe - Provider: Alicia Lopez APRN-HOGSHEAD MAT ASSEMBLER)0930 ($ New Bag/Syringe - Provider: Alicia Lopez APRN-HOGSHEAD MAT ASSEMBLER)1030 (Anesthesia Volume Adjustment - Provider: Alicia Lopez APRN-HOGSHEAD MAT ASSEMBLER) lactated ringers infusion (CANCELED) at 125 mL/hr, Intravenous, CONTINUOUS, Starting on Tue02/23/16 at 1145, Until Tue02/23/16 at 1930, Post-op 1246 ($ New Bag/Syri nge - Provider: Anabelle Lynch RN) PRN Medication Order 02/21/2016 02/22/2016 02/23/2016 0.9% nacl irrigation solution (CANCELED) PRN, Starting on Tue02/23/16 at 0656, Until Tue02/23/16 at 1041, Intra-op 0656 ($ Given - Prov ider: Selam Salgado RN - Comment: Used to clean and wipe) bupivacaine 0.5% - EPINEPHrine 1:200,000 (PF) injection (CANCELED) PRN, Starting on Tue02/23/16 at 1026, Until Tue02/23/16 at 1041, Intra-op 1026 ($ Given - Prov ider: Rubin Hall MD) fentaNYL (PF) (SUBLIMAZE) injection 50 mcg (CANCELED) 50 mcg, Intravenous, EVERY 3 MIN PRN, Mild Pain, Starting on Tue02/23/16 at 1048, Until Tue02/23/16 at 1133, Maximum total of 4 doses. If patient reaches max total dose, please consult anesthesiologist prior to further administration of pain meds. Hold pain meds if there are signs of hypoventilation., PACU 1055 ($ Given - Prov ider: Chelly Jordan, ANAND)1115 ($ Given - Provider: Chelly Jordan RN) lactated ringers irrigation solution (CANCELED) PRN, Starting on Tue02/23/16 at 1036, Until Tue02/23/16 at 1041, Intra-op 1036 ($ Given - Prov ider: Rubin Hall MD) oxyCODONE-acetaminophen (PERCOCET) 5-325 MG tablet 1 Tab 1 tablet, Oral, EVERY 4 HOURS PRN, Moderate Pain, Starting on Tue02/23/16 at 1133, Until Tue02/23/16 at 1930, Post-op 1340 ($ Given - Prov ider: Anabelle Lynch RN)1802 ($ Given - Provider: Anabelle Lynch RN) documented in this encounter Care Teams Brush Material Preparer Relationship Specialty Start Date End Date Warren Cowan MD [address] [address] PCP - General Family Medicine 02/20/16 documented as of this encounter
--- OUTSIDE RECORDS SUMMARY | 2024-07-07 16:57 | XMS_ITS | Encounter Summary ---
Author Organization [facility] Health Address [address] [place] [address] Care Team Providers Care Business Systems Analyst Name Role Phone Warren Cowan MD Primary Care Provider + Encounter Details Date Type Department Care Team (Late st Contact Info) Description 09/25/2015 Anesthesia Historic Visit [facility] [address] [place] [id number] Social History Tobacco Use Types Packs/Day Years Used Date Smoking Tobacco: Never Assessed Sex and Gender Information Value Date Recorded Sex Assigned at Not on file Gender Identity Not on file Sexual Orientation Not on file documented as of this encounter Plan of Treatment Not on file documented as of this encounter Visit Diagnoses Not on filedocumented in this encounter Care Teams Business Systems Analyst Relationship Specialty Start Date End Date Warren Cowan MD [address] [address] PCP - General Family Medicine 02/20/16 documented as of this encounter
--- OUTSIDE RECORDS SUMMARY | 2024-07-07 16:57 | XMS_ITS | Encounter Summary ---
Author Organization [facility] Health Address [address] [facility] [place] [address] Care Team Providers Care Plant Breeder Name Role Phone Warren Cowan MD Primary [...] Expiration Date Visits Re quested Visits Authorized [id number] 1 1 Encounter Details Date Type Department Care Team (Late st Contact Info) Description 02/23/2016 5:55 AM CDT - 02/23/2016 6:30 PM CDT Hospital Encounter [facility] 2 SURGICAL [address] [phone] Rubin Hall MD Surgery General Discharge Disposition: Home or Self Care Social History Tobacco Use Types Packs/Day Years [...] Hysterectomy OB: OB History No data available [facility]NER: Please See Above SOC: History Social History [...] results for input(s): ABORH in the last 96354 hours. No results for input(s): WBC, HGB, HCT, PLTCOUNT in the last 34492 hours. No results for input(s): SODIUM, POTASSIUM, CHLORIDE, CO2, BUN, CREATININE, GLUCOSE, CALCIUM in thelast 51945 hours. Assessment/Plan: 50 y.o. With chronic pain, [...] MD - 02/23/2016 12:38 PM CDT [facility] - [place] [address] Operative Report PATIENT NAME: ALLIE HUSTON MR#: [id number] DATE OF : 1965 CSN: [id number] DATE OF ADMISSION: 02/23/2016 ROOM#: [id number] DATE OF OPERATION: 02/23/2016 PREOPERATIVE DIAGNOSIS: Pelvic mass and mass at the top of the vagina, status post hysterectomy. POSTOPERATIVE DIAGNOSIS: Pelvic mass and mass at the top of the vagina, status post hysterectomy, plus adhesions between the omentum and the anterior abdominal wall that took 30 minutes to lyse. SURGEON: Rubin Hall M.D. DIMENSION MILL WORKER: Dr. Henry and Dr. Green, [facility] DRONE SOFTWARE DEVELOPMENT ENGINEER resident. ANESTHESIA: General endotracheal. COMPLICATIONS: None. ESTIMATED [...] patient was referred to the division of [facility] On[facility] at [facility] here at [facility] and we proceeded to schedule the above-described [...] HUSTON DICTATOR: RUBIN HALL M.D. DICTATED FOR: ROGER/EZRA JOB ID: [id number] Operative Report documented in this encounter Plan of Treatment Not on file documented as of this encounter Procedures Procedure Name Priority Date/Time Associated Diagnosis Comments LAB RESULTS ORDER 02/25/2016 1: 47 AM CDT CARDIAC RHYTHM STRIP ORDER 02/25/2016 [...] provider. Scanned Document LAB - THERAPEUTIC DR UG MONITORING ORDERABLES * CARDIAC RHYTHM STRIP ORDER (02/25/2016 1:47 AM CDT) Narrative 02/25/2016 1:47 AM CDT Ordered by an unspecified provider. Scanned Document CARDIAC SERVICES ORD ERABLES * (ABNORMAL) URINALYSIS ROUTINE W/REFLEX TO CULTURE (02/23/2016 10:43 AM CDT) Color UA Digna(A) Straw, Yellow, Dark Yellow 02/23/2016 11:[address] [facility] Clarity UA Cloudy 02/23/2016 11:[address] [facility] Specific [place] UA 1.028 1.005 - 1.030 02/23/2016 11:[address] [facility] pH UA 5.5 5.0 - 8.0 pH 02/23/2016 11:[address] [facility] Protein UA Trace(A) Negative 02/23/2016 11:[address] [facility] Blood UA 3+(A) Negative 02/23/2016 11:[address] [facility] Leukocyte UA Negative Negative 02/23/2016 11:[address] [facility] Nitrite UA Negative Negative 02/23/2016 11:[address] [facility] Glucose UA Negative Negative 02/23/2016 11:[address] [facility] Ketone UA Trace(A) Negative 02/23/2016 11:16 AM [facility] Bilirubin UA Negative Negative 02/23/2016 11:16 AM [facility] Urobilinogen UA 0.2 0.1 - 1.0 EU/dL 02/23/2016 11:16 AM [facility] WBC UA Auto 2-5 0-2, 2-5 # /hpf 02/23/2016 11:16 AM [facility] RBC UA Auto >100(A) 0-2, 2-5 # /hpf 02/23/2016 11:16 AM [facility] Hyaline Casts UA Auto Reflex to manual(A) 0 - 2 #/lpf 02/23/2016 11:16 AM [facility] Reflex Status Culture not indicated 02/23/2016 11:16 AM [facility] Urine URINE SPECIMEN OBTAINED VIA INDWELLING URINARY CATHETER / Unknown Collection / Unknown 02/23/2016 10:43 AM CDT 02/23/2016 10:57 AM T Rubin Hall MD LAB - URINALYSIS OR DERABLES [facility] [address] [place] [address] * (ABNORMAL) URINALYSIS MICROSCOPIC ONLY W/REFLEX CULTURE (02/23/2016 10:43 AM CDT) Epithelial Cell UA 5-10(A) 0-2, 2-5 # /hpf 02/23/2016 11:20 AM [facility] Hyaline Casts 2-5(A) 0 - 2 # /lpf 02/23/2016 11:[address] [facility] Urine URINE SPECIMEN OBTAINED VIA INDWELLING URINARY CATHETER / Unknown Collection / Unknown 02/23/2016 10:43 AM CDT 02/23/2016 10:57 AM CDT Rubin Hall MD LAB - URINALYSIS OR DERABLES Performing Organization Address City/State/[facility] Co de Phone Number [facility] [address] [place] [address] * GROSS + MICRO EXAM (STL) (02/23/2016 9:08 AM CDT) Case Report Surgical Pathology Report ? Case: [id number] ? Authorizing Provider: ??Ruibn Hall MD ? Collected: ? 02/23/2016 09:08 AM ? Ordering Location: ? [facility] ? Received: ?02/23/2016 11:10 AM ? Pathologist: ? Joceline Soliz MD ? Specimen: ?Ovary with Tube, BI-LATERAL TUBES and OVARIES ? 02/24/2016 8:[address] [facility] Final Diagnosis 1. ??Bilateral ovaries and fallopian tubes, hysterectomy and salpingo-oophorec juan carlos: -- ??No evidence of malignancy [facility] 02/24/2016 8:50 AM [facility] Gross Description Received in formalin in a container labeled Allie Huston, bilateral tubes and ovaries. ??The container holds [...] a patent lumen with no focal lesion. ??C D Reactor Operator sections are submitted as follows: ?? A1-A2 - smaller ovary with attached fallopian tube segment A3-A4 - larger ovary with attached fallopian tube segment DYT/rtc 02/24/2016 8:[address] [facility] Microscopic Description Sections reveal bilateral ovaries and fallopian tubes with benign histology. ??The fallopian tubes show small paratubal cysts. ??The ovaries are histologically unremarkable. ?? [facility]/ 02/24/2016 8:[address] [facility] Pathology/Cytolo gy FALLOPIAN TUBE AND OVARY, CS / Unknown 02/23/2016 9:08 AM CDT 02/23/2016 11:10 AM CDT Rubin Hall MD LAB - PATHOLOGY/CYT OLOGY ORDERABLES Performing Organization Address [facility] Co de Phone Number [facility] [address] [place] [address] * BLOOD TYPE VERIFICATION (02/23/2016 8:35 AM CDT) ABO A 02/23/2016 8:[address] [facility] Rh Type Positive 02/23/2016 8:[address] [facility] Miscellaneous samples (specimen) BLOOD SPECIMEN / Unknown Venipuncture / Unknown 02/23/2016 8:35 AM CDT 02/23/2016 8:39 AM CDT Rubin Hall MD LAB - BLOOD BANK OR DERABLES Performing Organization Address [facility] de Phone Number [facility] [address] [place] [address] * TYPE + SCREEN PANEL (02/23/2016 7:16 AM CDT) ABO A 02/23/2016 8:[address] [facility] Rh Type Positive 02/23/2016 8:[address] [facility] Comment:History check perfor med. No retype required. Antibody Screen Negative 02/23/2016 8:[address] [facility] BLOOD 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 Pain, pelvic, female Unspecified symptom associated with female genital organs Pelvic mass in female Abdominal or pelvic swelling, mass or lump, unspecified site documented in this encounter Administered Medications Inactive Administered Medications - up to 3 most recent administrations Medication Order MAR Action Action Date Dose Rate Site fentaNYL (PF) (SUBLIMAZE) injection 50 mcg [...] Bag/Syringe 02/23/2016 12:46 PM CDT 125 mL/hr oxyCODONE-acetaminophen (PERCOCET) 5-325 MG tablet 1 Tab [...] dose on Tue02/23/16 at 1145, Until Discontinued 1145 (Not Administer [...] Johnson RN)0815 ($ New Bag/Syringe - Provider: HIRAL WhatleyFARM MANAGEMENT SUPERVISOR)0930 ($ New Bag/Syringe - Provider: HIRAL WhatleyFARM MANAGEMENT SUPERVISOR)1030 (Anesthesia Volume Adjustment - Provider: HIRAL WhatleyFARM MANAGEMENT SUPERVISOR) lactated ringers infusion (CANCELED) at 125 mL/hr, [...] 1055 ($ Given - Prov ider: Chelly Jordan RN)1115 ($ Given - Provider: Chelly Jordan RN) [...] 1340 ($ Given - Prov ider: Anabelle Lynch, ANAND)1802 ($ Given - Provider: Anabelle Lynch RN) documented in this encounter Care Teams Plant Breeder Relationship Specialty Start Date End Date Warren Cowan MD [address] [address] PCP - General Family Medicine 02/20/16 documented as of this encounter
--- OUTSIDE RECORDS SUMMARY | 2024-07-07 16:57 | XMS_ITS | Clinical Summary ---
Author Organization [facility] Address [address] [place] [address]. [place], [place] [address] [place] [address] Care Team Providers Care Worship Leader Name Role Phone Warren Cowan MD Primary Care Provider +1- [phone] Allergies No known active allergies Medications No known medications Family History Medical History Relation Comments Cancer Father Diabetes Father Heart Disease Father Diabetes Mother Stroke Mother Relation Status Comments Father Mother Social History Tobacco Use Types Packs/Day Years Used Date Smoking Tobacco: Former Cigarettes Q uit: 02/27/2009 Smokeless Tobacco: Never Alcohol Use Standard Drinks/Week Comments No 0 (1 standard drink = 0.6 oz pur e alcohol) AUDIT-C Answer Date Recorded Frequency of Alcohol Consumption Never 02/27/2019 Average Number of Drinks Not on file 019 Frequency of Binge Drinking Not on file 02/02 Comments No Sex and Gender Information Value Date Recorded Sex Assigned at Not on file Legal Sex Female 1:10 AM CDT Gender Identity Not on file Sexual Orientation Not on file Last Filed Vital Signs Vital Sign Reading Time Taken Comments Blood Pressure 147/84 03/20/2019 2:38 PM CDT Pulse 70 03/20/2019 2:38 PM CDT Temperature 36.7 ??C (98.1 ??F) 03/20/2019 2:38 PM CD T Respiratory Rate 18 03/20/2019 2:38 PM CDT Oxygen Saturation 95% 03/20/2019 2:38 PM CDT Inhaled Oxygen Concentration - - Weight 89.4 kg (197 lb 1.5 oz) 03/20/2019 9:42 A M CDT Height 160 cm (5' 3 ) 02/27/2019 12:17 PM CDT Body Mass Index 34.91 02/27/2019 12:17 PM CDT Plan of Treatment Health Maintenance Due Date Last Done Comments Colorectal Cancer Screening Colonoscopy (10 Years) 1965 Annual Physical 1968 Hepatitis C 1983 DTaP, Tdap and Td Vaccines ( 1 - Tdap) 1984 Hepatitis B Vaccines (1 of 3 - 19+ 3-dose series) 1984 Mammogram Screening 2005 Zoster Vaccines (1 of 2) 2015 COVID-19 Vaccine (1 - 2023-2 5 season) 2024 Influenza Adult (#1) 2024 Meningococcal Vaccine Aged Out No ashley jayleen eligible based on patient's age to complete this topic Pneumococcal Vaccine: Pediat rics (0 to 5 Years) and At-Risk Patients (6 to 64 Years) Aged Out No longer eligible b ased on patient's age to complete this topic RSV Immunizations Under 20 Months Aged Out No longer eligible based on patient's age to complete this topic Insurance MEDICARE AETNA Care Teams Worship Leader Relationship Specialty Start Date End Date Warren Cowan MD [address] [address] PCP - General FAMILY PRACTICE 02/27/19
--- OUTSIDE RECORDS SUMMARY | 2024-07-07 16:58 | XMS_ITS | Encounter Summary ---
Author Organization [facility] Address [address] [place] [address]. [place] [address] [place] [address] Care Team Providers Care Cleaning Laborer Name Role Phone Unavailable Primary Care Provider Unavailabl e Encounter Details Date Type Department Care Team (Late st Contact Info) Description 12/05/2015 Abstract [facility] [address] [place] [address] Tyrell Nunez MD [address] [place] [address] Social History Tobacco Use Types Packs/Day Years Used Date Smoking Tobacco: Never Assessed Comments Unknown Sex and Gender Information Value Date Recorded Sex Assigned at Not on file Legal Sex Female 1:10 AM CDT Gender Identity Not on file Sexual Orientation Not on file documented as of this encounter Plan of Treatment Not on file documented as of this encounter Visit Diagnoses Diagnosis Left lower quadrant pain Abdominal pain, left lower quadrant documented in this encounter
--- OUTSIDE RECORDS SUMMARY | 2024-07-07 16:58 | XMS_ITS | Encounter Summary ---
Author Organization [facility] Address [facility] [facility] [place] [address] [place] [address] Care Team Providers Care Hydraulic Strainer Operator Name Role Phone Unavailable Primary Care Provider Unavailabl e Encounter Details Date Type Department Care Team (Late st Contact Info) Description 02/18/2014 Abstract [facility] Care [address] [place] [address] Elsa Hilton, ULICES [address], [address] [address] Social History Tobacco Use Types Packs/Day Years Used Date Smoking Tobacco: Never Assessed Comments Unknown Sex and Gender Information Value Date Recorded Sex Assigned at Not on file Legal Sex Female 1:10 AM CDT Gender Identity Not on file Sexual Orientation Not on file documented as of this encounter Plan of Treatment Not on file documented as of this encounter Visit Diagnoses Diagnosis Hip, thigh, leg, and ankle, insect bite, nonvenomous, infected documented in this encounter
--- OUTSIDE RECORDS SUMMARY | 2024-07-07 16:58 | XMS_ITS | Encounter Summary ---
Author Organization [facility] Address [address] [place] [address]. [place] [address] [place] [address] Care Team Providers Care Semiconductor Wafers Etch Operator Name Role Phone Unavailable Primary Care Provider Unavailabl e Encounter Details Date Type Department Care Team (Late st Contact Info) Description 09/20/2015 Abstract [facility] Emergency Room [address] [place], [place] [phone] Lex Colon MD [address] [phone] Social History Tobacco Use Types Packs/Day Years Used Date Smoking Tobacco: Never Assessed Comments Unknown Sex and Gender Information Value Date Recorded Sex Assigned at Not on file Legal Sex Female 1:10 AM CDT Gender Identity Not on file Sexual Orientation Not on file documented as of this encounter Plan of Treatment Not on file documented as of this encounter Visit Diagnoses Diagnosis Sepsis (CMS/HCC HHS/HCC) documented in this encounter
--- OUTSIDE RECORDS SUMMARY | 2024-07-07 16:58 | XMS_ITS | Encounter Summary ---
Author Organization [facility] Address [address] [place] [address]. [place] [address] [place] [address] Care Team Providers Care Indoor Landscape Architect Name Role Phone Unavailable Primary Care Provider Unavailabl e Encounter Details Date Type Department Care Team (Late st Contact Info) Description 08/01/2015 Abstract [facility] [address] [place] [address] Tyrell Nunez MD [address] [place] [address] Social History Tobacco Use Types Packs/Day Years Used Date Smoking Tobacco: Never Assessed Comments Unknown Sex and Gender Information Value Date Recorded Sex Assigned at Not on file Legal Sex Female 1:10 AM CDT Gender Identity Not on file Sexual Orientation Not on file documented as of this encounter Plan of Treatment Not on file documented as of this encounter Visit Diagnoses Diagnosis Candidal esophagitis ([facility]) Candidiasis of the esophagus documented in this encounter
--- OUTSIDE RECORDS SUMMARY | 2024-07-07 16:58 | XMS_ITS | Encounter Summary ---
Author Organization [facility] Address [address] [place] [address]. [place] [address] [place] [address] Care Team Providers Care Advertising Inserter Name Role Phone Unavailable Primary Care Provider Unavailabl e Encounter Details Date Type Department Care Team (Late st Contact Info) Description 07/25/[address] [facility] Emergency Room [address] [place], [place] [phone] Mercy Jordan MD [address] [phone] Social History Tobacco Use Types Packs/Day Years [...]
--- OUTSIDE RECORDS SUMMARY | 2024-07-07 16:58 | XMS_ITS | Encounter Summary ---
Author Organization [facility] Address [address] [place] [address]. [place], [place] [phone] [place] [address] Care Team Providers Care Blueprinter Name Role Phone Unavailable Primary Care Provider Unavailabl e Encounter Details Date Type Department Care Team (Late st Contact Info) Description 10/10/2013 Abstract [facility] Emergency Room [address] [place] [address] Hiro Berg MD Social History Tobacco Use Types Packs/Day Years Used Date Smoking Tobacco: Never Assessed Comments Unknown Sex and Gender Information Value Date Recorded Sex Assigned at Not on file Legal Sex Female 1:10 AM CDT Gender Identity Not on file Sexual Orientation Not on file documented as of this encounter Plan of Treatment Not on file documented as of this encounter Visit Diagnoses Diagnosis Other chest pain documented in this encounter
--- OUTSIDE RECORDS SUMMARY | 2024-07-07 16:58 | XMS_ITS | Encounter Summary ---
Author Organization [facility] Address [address] [place] [address]. [place] [address] [place] [address] Care Team Providers Care Engineer Systems Name Role Phone Unavailable Primary Care Provider Unavailabl e Encounter Details Date Type Department Care Team (Late st Contact Info) Description 10/22/2013 [facility] [address] [place] [address] , Elfego Morris MD Social History Tobacco Use Types Packs/Day [...]
--- OUTSIDE RECORDS SUMMARY | 2024-07-07 16:58 | XMS_ITS | Encounter Summary ---
Author Organization [facility] Address Replaced by [facility] [place] [address] [place] [address] Care Team Providers Care Sound Cutter Name Role Phone Unavailable Primary Care Provider Unavailabl e Encounter Details Date Type Department Care Team (Late st Contact Info) Description 11/06/[address] [facility] Emergency Room [address] [place] [address] Carlyle Arevalo MD [address] [place] [address] Social History Tobacco Use Types Packs/Day Years Used Date Smoking Tobacco: Never Assessed Comments Unknown Sex and Gender Information Value Date Recorded Sex Assigned at Not on file Legal Sex Female 1:10 AM CDT Gender Identity Not on file Sexual Orientation Not on file documented as of this encounter Plan of Treatment Not on file documented as of this encounter Visit Diagnoses Diagnosis Migraine Migraine, unspecified, without mention of intractable migraine without mention of status migrainosus documented in this encounter
--- OUTSIDE RECORDS SUMMARY | 2024-07-07 16:58 | XMS_ITS | Encounter Summary ---
Author Organization [facility] Address [facility]6 [facility]. [place], [place] [address] [place] [id number] Care Team Providers Care Merchandise Processor Name Role Phone Unavailable Primary Care Provider Unavailabl e Encounter Details Date Type Department Care Team (Latest Contact Info) Description 10/11/2013 Abstract [facility] Hiro Gonzalez MD Social History Tobacco Use Types Packs/Day Years Used Date Smoking Tobacco: Never Assessed Comments Unknown Sex and Gender Information Value Date Recorded Sex Assigned at Not on file Legal Sex Female 1:10 AM CDT Gender Identity Not on file Sexual Orientation Not on file documented as of this encounter H&P Notes * Hiro Gonzalez MD - 10/11/2013 9:42 AM CDT [place] [address] Patient: ABIODUN BUCHANAN Med Rec#: [id number] Birthdate: 1965 Admit/Svce Date: 10/10/2013 Disch Date: 10/11/2013 Attending Md: HIRO GONZALEZ MD CHART DOCUMENT HISTORY AND PHYSICAL EXAMINATION 48 year old lady came to the Emergency Room complaining of chest pain located in her left side, radiating to the left arm and shoulder. She rated the pain between 8/10. Never had this before. Past Medical History: She has a history of multiple issues with fibromyalgia. History of lupus. Medications: Takes multiple medications that include: Xanax 0.25 at bedtime Amitriptyline 25 at bedtime Calcium plus Vitamin D Fiber Benadryl Ferrous Sulfate Folic Acid Lortab 5/500 1-2 tablets q 4 hours prn for pain Iron Meclizine Medrol Savella 50 BID Nitrofurantoin 100 p.r.n. Pilocarpine 5mg tablet (Salagen) p.o. 4 times a day Lyrica 150 TID Ranitidine 150 BID VESIcare 5 per day Tramadol 100 TID Vitamin D Enbrel intramuscular once a week Vitamin B Plaquenil 200mg daily So, multiple medications. At this point in time with reviewing her past history she never had any problems with her heart. She doesn't have diabetes, no hypertension, no high cholesterol that she knows of. Social History: She doesn't smoke. Family History: Is remarkable for heart disease, both father and mother. Early heart disease according to the patient, in their early 50's; however, they in their 70's and 80's. At this point in time I am going to try to stratify her for risk factors. The chest pain which is now basically 2/10 is almost gone. I will ask Dr. Graf to see her in consultation and see what his opinion is. She is 48 years old and see what his recommendations are. My opinion is this is not her heart but with the family history it is questionable. We have a Lipid panel ordered for today which shows a Triglyceride of 212, Total Cholesterol of 304, LDL 208, HDL 53. Electrolytes were within normal limits. Liver function studies were fine. Troponins were 0. Electrocardiogram showed no evidence of acute ischemia. So that is what we have and we will see what Dr. Graf has to say. If Dr. Graf thinks that she can go home then we will let her go home today and continue with her usual medications. It seems to me that this is more muscular perhaps in nature. Physical Exam: Lungs were clear. Heart regular. Abdomen is prominent, soft, non-tender. Impression Diagnosis: Atypical chest pain, rule out heart issues. Multiple medical issues with fibromyalgia and lupus according to the history. Electronically Signed by Hiro Gonzalez MD 10/16/2013 12:21AA/oren 10/11/2013 9:42 A 10/11/2013 9:53 A Job No: Doc No: [id number] cc: Hiro Gonzalez MD documented in this encounter Procedure Notes * Hiro Gonzalez MD - 10/11/2013 7:45 AM CDT [place] [address] Patient: ABIODUN BUCHANAN Rec#: [id number] Birthdate: 1965 Admit/Svce Date: 10/10/2013 Disch Date: 10/11/2013 Attending Md: HIRO GONZALEZ MD CHART DOCUMENT EKG NO: [id number] DATE: 10/10/2013 ORDER #: [id number] EKG REPORT RATE: 100 INTERPRETATION: UT and QRS within normal limits. Nonspecific T wave abnormalities. T inverted in the precordial anteroseptal areas. Clinical correlation necessary. Electronically Signed by Hiro Gonzalez MD 10/16/2013 12:21 AA/sp 10/11/2013 7:45 A 10/11/2013 8:26 A Job No: Doc No: [id number] cc: Hiro Gonzalez MD Other Copy documented in this encounter Plan of Treatment Not on file documented as of this encounter Visit Diagnoses Not on filedocumented in this encounter
--- OUTSIDE RECORDS SUMMARY | 2024-07-07 16:58 | XMS_ITS | Encounter Summary ---
Author Organization [facility] Address [facility] [place] [address] [place] [address] Care Team Providers Care Securities Consultant Name Role Phone Unavailable Primary Care Provider Unavailabl e Encounter Details Date Type Department Care Team (Late st Contact Info) Description 12/13/2010 Abstract [facility] Emergency Room [address] [place] [address] Navneet Birmingham MD [address] [address] Social History Tobacco Use Types Packs/Day Years [...]
--- OUTSIDE RECORDS SUMMARY | 2024-07-07 16:58 | XMS_ITS | Encounter Summary ---
Author Organization [facility] Address [facility]6 [place] [address] [place] [address] Care Team Providers Care Librarian Specialist Name Role Phone Unavailable Primary Care Provider Unavailabl e Encounter Details Date Type Department Care Team (Late st Contact Info) Description 03/26/2016 Abstract [facility] Emergency Room [address] [place], [place] [id number] Mike Lobato MD [address] [address] Social History Tobacco Use Types Packs/Day Years Used Date Smoking Tobacco: Never Assessed Comments Unknown Sex and Gender Information Value Date Recorded Sex Assigned at Not on file Legal Sex Female 1:10 AM CDT Gender Identity Not on file Sexual Orientation Not on file documented as of this encounter Plan of Treatment Not on file documented as of this encounter Visit Diagnoses Diagnosis Urinary tract infection Urinary tract infection, site not specified documented in this encounter
--- OUTSIDE RECORDS SUMMARY | 2024-07-07 16:58 | XMS_ITS | Encounter Summary ---
Author Organization [facility] Address [address] [place] [address]. [place] [address] [place] [address] Care Team Providers Care Phone Specialist Name Role Phone Unavailable Primary Care Provider Unavailabl e Encounter Details Date Type Department Care Team (Late st Contact Info) Description 08/16/2013 Abstract [facility] [address] [place] [address] Marcellus Calderón MD Social History Tobacco Use Types Packs/Day [...]
--- OUTSIDE RECORDS SUMMARY | 2024-07-07 16:58 | XMS_ITS | Encounter Summary ---
Author Organization [facility] Address [address] [place] [address]. [place] [address] [place] [address] Care Team Providers Care Auto Research Engineer Name Role Phone Warren Cowan MD Primary Care Provider [phone] Encounter Details Date Type Department Care Team (Late st Contact Info) Description 12/09/2018 Abstract [facility] [address] [place] [place] [address] , Generic Conversion, Social History Tobacco Use Types Packs/Day Years [...] on filedocumented in this encounter Care Teams Auto Research Engineer Relationship Specialty Start Date End Date Warren Cowan MD [address] [place] [id number] PCP - General FAMILY PRACTICE 02/27/19 documented as of this encounter
--- OUTSIDE RECORDS SUMMARY | 2024-07-07 16:58 | XMS_ITS | Encounter Summary ---
Author Organization [facility] Address [facility] [place] [address] [place] [address] Care Team Providers Care Cadmium Plater Name Role Phone Unavailable Primary Care Provider Unavailabl e Encounter Details Date Type Department Care Team (Late st Contact Info) Description 12/01/2014 Abstract [facility] Emergency Room [address] [place] [address] Elie Kaufman MD Social History Tobacco Use Types Packs/Day [...] as of this encounter Visit Diagnoses Diagnosis Head injury Head injury, unspecified documented in this encounter
--- OUTSIDE RECORDS SUMMARY | 2024-07-07 16:58 | XMS_ITS | Encounter Summary ---
Author Organization [facility] Address [address] [place] [address]. [place], [place] [id number] [place] [address] Care Team Providers Care Kilnman Name Role Phone Warren Cowan MD Primary Care Provider [phone]- [phone] Reason for Referral * Imaging (Emergency) - Closed Specialty Diagnoses / Procedures Referred By Contac t Referred To Contact RADIOLOGY Procedures CT ABD+PEL W IV CON ONLY Sadie Arias MD Phone: tel: fax: Referral ID Status Reason Start Date Expiration Date Visits Re quested Visits Authorized [id number] Closed 02/27/2019 03/30/2020 1 1 * Imaging (Emergency) - Closed Specialty Diagnoses / Procedures Referred By Contac t Referred To Contact RADIOLOGY Procedures CT LUMB SPINE WO CON Sadie Arias MD Phone: tel: fax: Referral ID Status Reason Start Date Expiration Date Visits Re quested Visits Authorized [id number] Closed 02/27/2019 03/30/2020 1 1 * Imaging (Emergency) - Closed Specialty Diagnoses / Procedures Referred By Contac t Referred To Contact RADIOLOGY Procedures CT THOR SPINE WO CON Sadie Arias MD Phone: tel: fax: Referral ID Status Reason Start Date Expiration Date Visits Re quested Visits Authorized [id number] Closed 02/27/2019 03/30/2020 1 1 * Imaging (Emergency) - Closed Specialty Diagnoses / Procedures Referred By Contloretta t Referred To Contact RADIOLOGY Procedures CT CERV SPINE WO CON Sadie Arias MD Phone: tel: fax: Referral ID Status Reason Start Date Expiration Date Visits Re quested Visits Authorized [id number] Closed 02/27/2019 03/30/2020 1 1 * Imaging (Emergency) - Closed Specialty Diagnoses / Procedures Referred By Contloretta t Referred To Contact RADIOLOGY Procedures CT HEAD WO CON Sadie Arias MD Phone: tel: fax: Referral ID Status Reason Start Date Expiration Date Visits Re quested Visits Authorized [id number] Closed 02/27/2019 03/30/2020 1 1 Reason for Visit * Reason Comments Fall Encounter Details Date Type Department Care Team (Late st Contact Info) Description 02/27/2019 12:17 PM CDT - 02/27/2019 4:25 PM CDT Emergency [facility] [address] [place] [address] [place] [address] Sadie Arias MD [address] [place] [id number] Fall Discharge Disposition: Home or Self Care (Routine Discharge) Social History Tobacco Use Types Packs/Day Years [...] Sign Reading Time Taken Comments Blood Pressure 157/89 02/27/2019 4:00 PM CDT Pulse 69 02/27/2019 4:15 PM CDT Temperature 36.1 ??C (96.9 ??F) 02/27/2019 12:17 PM C DT Respiratory Rate 13 02/27/2019 3:00 PM CDT Oxygen Saturation 94% 02/27/2019 4:15 PM CDT Inhaled Oxygen Concentration - - Weight 90.7 kg (200 lb) 02/27/2019 12:17 PM CDT Height 160 cm (5' 3 ) 02/27/2019 12:17 PM CDT Body Mass Index 35.43 02/27/2019 12:17 PM CDT documented in this encounter Discharge Instructions * Discharge Instructions* Sadie Arias MD - 02/27/2019 4:06 PM CDT Head injury, cervical strain, lumbar strain, seizure, fall 1. Rest, ice, take pain medications as previously prescribed 2. CTscans and xrays were negative for acute injuries 3. Return to ER for worsening pain, swelling, seizure activity or other concerns. 4. Continue keppra and follow up closely with your neurologist. * Attachments The following attachments cannot be sent through Care Everywhere. * Closed Head Injury (Mauritian) * Cervical Muscle Strain (Mauritian) documented in this encounter ED Notes * Jena Aponte RN - 02/27/2019 3:45 PM CDT Returns to stretcher after voiding. * Jean Aponte RN - 02/27/2019 3:27 PM CDT Assist to bedside commode. * Jean Aponte RN - 02/27/2019 3:13 PM CDT Returns from xray per stretcher. * Jean Aponte RN - 02/27/2019 3:07 PM CDT To xray pr stretcher. * Jean Aponte RN - 02/27/2019 2:34 PM CDT Returns from ct. * Jean Aponte RN - 02/27/2019 2:[address] per stretcher * Jean Aponte RN - 02/27/2019 2:00 PM CDT Consent for ct scan iv contrast signed per pt's with verbal consent of pt. * Sadie Arias MD - 02/27/2019 12:53 PM CDT Chief Complaint Chief Complaint Patient presents with ??? Fall History of Present Illness Patient is a 53-year-old female who presents to the emergency room with multiple complaints. states that patient had a seizure at approximately 130 this morning. This was witnessed by him. Hestates her last seizure was approximately 1 month ago. Patient takes Keppra 1500 mg twice a day. states he went to work at 4:30 AM and had a phone call that patient was being brought to the [facility] just prior to arrival. Patient reportedly fell at home from her wheelchair to the ground. Patient states she does not remember the episode. Positive loss of consciousness per patient. Unsure if patient had a seizure. Patient complains of pain in her neck, back, abdomen, left elbow and right a nkle. Patient does not take any blood thinners. She does chronically take pain medication at home. Patient states she hurts all over. Medical History ALLERGIES: No Known Allergies MEDICATIONS: Prior to Admission medications Not on File PAST MEDICAL HISTORY: Past Medical History: Diagnosis Date ??? Arthritis ??? Lupus (CMS/HCC) ??? MS (multiple sclerosis) (CMS/HCC) ??? Seizures (CMS/HCC) PAST SURGICAL HISTORY: Past Surgical History: Procedure Laterality Date ??? HYSTERECTOMY ??? TONSILLECTOMY FAMILY HISTORY: Family History Problem Relation Name Age of Onset ??? Stroke Mother ??? Diabetes Mother ??? Cancer Father ??? Diabetes Father ??? Heart Disease Father SOCIAL HISTORY: Social History Tobacco Use ??? Smoking status: Former Smoker Types: Cigarettes Last attempt to quit: 02/27/2009 Years since quittin.0 ??? Smokeless tobacco: Never Used Substance Use Topics ??? Alcohol use: No Frequency: Never ??? Drug use: No Review of Systems Review of Systems Constitutional: Negative. HENT: Negative. Eyes: Negative. Respiratory: Negative. Cardiovascular: Negative. Gastrointestinal: Negative. Endocrine: Negative. Genitourinary: Negative. Musculoskeletal: Positive for arthralgias, back pain, myalgias and neck pain. Skin: Negative. Allergic/Immunologic: Negative. Neurological: Positive for seizures and headaches. Hematological: Negative. Psychiatric/Behavioral: Negative. Physical Exam Filed Vitals: 02/27/19 1300 02/27/19 1330 02/27/19 1400 02/27/19 1500 BP: (!) 186/101 (!) 163/95 197/90 (!) 160/95 Pulse: 72 74 74 Resp: 15 14 13 Temp: TempSrc: SpO2: 94% 90% 94% Weight: Height: Vital signs stable except for tachypnea and hypertension Physical Exam Constitutional: She is oriented to person, place, and time. She appears well- developed and well-nourished. She appears distressed (mild pain distress). HENT: Head: Normocephalic and atraumatic. Eyes: Pupils are equal, round, and reactive to light. Neck: No tracheal deviation present. ccollar in place, patient complains of diffuse midline and lateral tenderness to palpation, no bonystepoff or crepitus Cardiovascular: Normal rate, regular rhythm, normal heart sounds and intact distal pulses. Pulmonary/Chest: Effort normal and breath sounds normal. No respiratory distress. She has no wheezes. Abdominal: Soft. Bowel sounds are normal. She exhibits no distension and no mass. There is tenderness (RLQ, no rebound or guarding). Musculoskeletal: Normal range of motion. Diffuse thoracic and lumbar spine tenderness to palpation midline and lateral. No stepoffs. From left elbow but c/o tendernss to the olecrenon, FROM bilateral hips, right lateral malleolus tender to palpation, no edema Neurological: She is alert and oriented to person, place, and time. Skin: Skin is warm and dry. Capillary refill takes less than 2 seconds. She is not diaphoretic. Nursing note and vitals reviewed. Diagnostic Studies / Procedures ELECTROCARDIOGRAMS: No results found for this visit on 02/27/19. LABORATORY STUDIES: Results for orders placed or performed during the hospital encounter of 02/27/19 CBC W/DIFF AUTOMATED Result Value Ref Range WBC 9.7 4.5 - 10.8 x10'3/uL RBC 4.70 4.10 - 5.40 x10'6/uL HGB 15.0 12.0 - 16.0 G/DL HCT 44.2 36.0 - 47.0 % MCV 94.0 78.0 - 100.0 FL MCH 31.9 (H) 27.0 - 31.0 PG MCHC 33.9 33.0 - 36.0 G/DL RDW 14.4 11.5 - 14.5 % PLT 187 150 - 350 x10'3/uL MPV 12.9 (H) 7.4 - 10.4 FL Differential Comment NORMAL REFERENCE RANGE NOT ESTABLISHED FOR THE PROPORTIONAL LEUKOCYTE DIFFERENTIAL. SEG NEUTROPHILS 71.2 % LYMPHOCYTES 20.1 % MONOCYTES 6.5 % EOSINOPHILS 1.2 % BASOPHILS 0.7 % IMMATURE GRANS 0.3 % NRBC 0.0 % ABS. NEUTROPHILS 6.92 1.60 - 8.30 x10'3/uL ABS. LYMPHOCYTES 1.95 0.80 - 4.70 x10'3/uL ABS. MONOCYTES 0.63 0.00 - 1.50 x10'3/uL ABS. EOSINOPHILS 0.12 0.00 - 0.40 x10'3/uL ABS. BASOPHILS 0.07 0.00 - 0.20 x10'3/uL ABS. IMMATURE GRANULOCYTES 0.03 0.00 - 0.03 x10'3/uL ABS. NUCLEATED RBC'S 0.00 0.00 x10'3/uL COMPREHENSIVE METABOLIC PANEL Result Value Ref Range SODIUM 144 136 - 145 MMOL/L POTASSIUM 3.3 (L) 3.5 - 5.1 MMOL/L CHLORIDE 108 (H) 98 - 107 MMOL/L CO2 29.9 21.0 - 32.0 MMOL/L GLUCOSE 88 70 - 99 MG/DL BUN 7 6 - 24 MG/DL CREATININE 0.71 0.55 - 1.02 MG/DL CALCIUM 7.8 (L) 8.4 - 10.5 MG/DL TOTAL BILIRUBIN 0.3 0.2 - 1.0 MG/DL ALK PHOS 142 (H) 41 - 108 U/L AST 18 15 - 37 U/L ALT 27 14 - 59 U/L TOTAL PROTEIN 6.4 6.4 - 8.2 G/DL ALBUMIN 3.1 (L) 3.4 - 5.0 G/DL ANION GAP 6.1 5.0 - 15.0 MMOL/L OSMOLALITY (CALC) 295 MOSM/KG eGFR Non-Afr. Amer. >90 >89 ML/MIN/1.73 M2 eGFR Afr. Amer. >90 >89 ML/MIN/1.73 M2 GFR NOTES THE ESTIMATED GFR IS CALCULATED USING THE 2009 CKD-EPI EQUATION. THE FOLLOWING CATEGORIES FOR GRADING RENAL FUNCTION ARE RECOMMENDED BY THE INTERNATIONAL SOCIETY OF NEPHROLOGY (KDIGO 2012 CLINICAL PRACTICE GUIDELINE). MAGNESIUM Result Value Ref Range MAGNESIUM 1.9 1.8 - 2.4 MG/DL IMAGING STUDIES XR ANKLE LT M3V Final Result by User, [id number] (02/27 5590) Examination: Left ankle. Exam time: 1527 hours. Clinical history: Pain after a fall. Comparison: None. Technique: Three views. Findings: No fracture, dislocation or other acute bony abnormality is identified. No other significant bone or joint abnormality is noted. The soft tissues are unremarkable. IMPRESSION: No acute findings. Interpreted By: Skyler Raymond, 02/27/2019 3:49 PM XR ELBOW RT M3V Final Result by User, [id number] (02/27 8512) Examination: Right elbow. Exam time: 1530 hours. Clinical history: Pain after a fall. Comparison: None. Technique: Three views. Findings: No fracture, dislocation or other acute bony abnormality is identified. No other significant bone or joint abnormality is noted. The soft tissues are unremarkable. IMPRESSION: No acute findings. Interpreted By: Skyler Raymond, 02/27/2019 3:[address] ABD+PEL W IV CON ONLY Final Result by User, [id number] (02/27 5621) Examination: CT of the abdomen and pelvis with contrast. Exam time: 1434 hours. Clinical history: Trauma. Unwitnessed fall. Now complains of right lower quadrant pain. History of urolithiasis. Prior cholecystectomy and hysterectomy. Comparison: 08/11/2016 (noncontrast). Technique: Following the administration of intravenous contrast, spiral scanning was performed through the abdomen and pelvis. Coronal and sagittal reconstructions were performed from the data set. A dose lowering technique was used for this procedure, which may include, but is not limited to, dose reduction techniques, automated exposure control, the use of iterative reconstruction and ALARA/Image Gently techniques. Findings: There is bilateral dependent subsegmental atelectasis. Middle lobe granuloma is again noted. Allowing for minor respiratory motion, the lung bases are otherwise clear. No pleural effusions are seen. Cholecystectomy is again evident with clips in the gallbladder fossa. The liver remains diffusely diminished in attenuation relative to the spleen, compatible with steatosis. Other than the use of contrast, the liver, spleen, pancreas and adrenal glands appear unchanged and unremarkable. Bilateral nephrolithiasis is again evident with no dramatic change in the stone burden. The kidneys are otherwise unremarkable. No ureteral calculi or signs of obstructive uropathy are identified. The urinary bladder appears unremarkable. The uterus is not identified, compatible with the history. A normal-appearing appendix is visible. There is no ascites, free air, lymphadenopathy or bowel distention. The caliber of the abdominal aorta is normal. No acute bony injury is identified. IMPRESSION: 1. No acute intra-abdominal or intrapelvic process identified. 2. Redemonstrated hepatic steatosis. 3. Bilateral nephrolithiasis. Interpreted By: Skyler Raymond, 02/27/2019 3:[address] THOR SPINE WO CON Final Result by User, [id number] (02/27 7669) Examination: CT of the thoracic and lumbar spine. Exam time: 1427 hours. Clinical history: Trauma. Unwitnessed fall. Comparison: CT of the abdomen and pelvis from the same date. Technique: Noncontrast thin section spiral axial scans were acquired through the thoracic spine. Sagittal and coronal reconstructions were performed from the data set. Reformatted sagittal, axial and coronal images from the CT abdomen and pelvis data set were tailored for the lumbar spine. A dose lowering technique was used for this procedure, which may include, but is not limited to, dose reduction techniques, automated exposure control, the use of iterative reconstruction and ALARA/Image Gently techniques. Findings: THORACIC SPINE: There is no fracture or dislocation. The reconstructions confirm maintenance of vertebral body height and alignment. The neural foramina and central canal appear patent. The spinal canal contents, as visualized, appear unremarkable. There is no paraspinal edema or hematoma. Calcific coronary artery disease, ectasia of the ascending aorta and calcified granulomatous scarring in the thorax noted. LUMBAR SPINE: There is no fracture or dislocation. The reconstructions confirm maintenance of vertebral body height and alignment. The intervertebral discs are maintained normally in height. There is minor paravertebral osteophyte formation. The neural foramina and central canal appear patent. The spinal canal contents, as visualized, appear unremarkable. There is no paraspinal edema or hematoma. There is bilateral nephrolithiasis. Cholecystectomy is noted. IMPRESSION: 1. No acute traumatic spinal injury identified. 2. Coronary artery disease. 3. Bilateral nephrolithiasis. Interpreted By: Skyler Raymond, 02/27/2019 2:[address] LUMB SPINE WO CON Final Result by User, [id number] (02/27 8947) Examination: CT of the thoracic and lumbar spine. Exam time: 1427 hours. Clinical history: Trauma. Unwitnessed fall. Comparison: CT of the abdomen and pelvis from the same date. Technique: Noncontrast thin section spiral axial scans were acquired through the thoracic spine. Sagittal and coronal reconstructions were performed from the data set. Reformatted sagittal, axial and coronal images from the CT abdomen and pelvis data set were tailored for the lumbar spine. A dose lowering technique was used for this procedure, which may include, but is not limited to, dose reduction techniques, automated exposure control, the use of iterative reconstruction and ALARA/Image Gently techniques. Findings: THORACIC SPINE: There is no fracture or dislocation. The reconstructions confirm maintenance of vertebral body height and alignment. The neural foramina and central canal appear patent. The spinal canal contents, as visualized, appear unremarkable. There is no paraspinal edema or hematoma. Calcific coronary artery disease, ectasia of the ascending aorta and calcified granulomatous scarring in the thorax noted. LUMBAR SPINE: There is no fracture or dislocation. The reconstructions confirm maintenance of vertebral body height and alignment. The intervertebral discs are maintained normally in height. There is minor paravertebral osteophyte formation. The neural foramina and central canal appear patent. The spinal canal contents, as visualized, appear unremarkable. There is no paraspinal edema or hematoma. There is bilateral nephrolithiasis. Cholecystectomy is noted. IMPRESSION: 1. No acute traumatic spinal injury identified. 2. Coronary artery disease. 3. Bilateral nephrolithiasis. Interpreted By: Skyler Raymond, 02/27/2019 2:[address] CERV SPINE WO CON Final Result by User, [id number] (02/27 7066) Examination: CT of the cervical spine. Exam time: 1426 hours. Clinical history: Trauma. Unwitnessed fall. Comparison: None. Technique: Thin section spiral axial scans were acquired from the skull base through the T1-2 level without contrast. Sagittal and coronal reconstructions were performed from the data set. A dose lowering technique was used for this procedure, which may include, but is not limited to, dose reduction techniques, automated exposure control, the use of iterative reconstruction and ALARA/Image Gently techniques. Findings: There is no fracture or dislocation. The reconstructions confirm maintenance of vertebral body height. Loss of the normal lordosis is attributed to the presence of the collar. Alignment is otherwise satisfactory. Varying degrees of disc narrowing and paravertebral osteophyte formation are present from C3-4 through C6-7. The other intervertebral discs are maintained normally in height. There is osteophytic foraminal impingement on the right at C4-5 and bilaterally at C5-6 and C6-7. The neural foramina and central canal are otherwise generally patent. The spinal canal contents, as visualized, appear unremarkable. There is no paraspinal edema or hematoma. IMPRESSION: 1. No acute traumatic injury identified. 2. Spondylosis as described. Interpreted By: Skyler Raymond, 02/27/2019 2:[address] HEAD WO CON Final Result by User, [id number] (02/27 144) Examination: CT of the head without contrast. Exam time: 1426 hours. Clinical history: Trauma. Unwitnessed fall. Headache. Comparison: 08/04/2016. Technique: Noncontrast axial scans from skull base to vertex. A dose lowering technique was used for this procedure, which may include, but is not limited to, dose reduction techniques, automated exposure control, the use of iterative reconstruction and ALARA/Image Gently techniques. Findings: The ventricles are normal in size and configuration and unchanged. No shift of midline or mass effect is noted. No areas of abnormal x-ray attenuation are identified. In particular, there is no mass, hemorrhage or sign of acute stroke. No extracerebral fluid collections. The skull appears intact. The mastoid air cells and paranasal sinuses appear clear. IMPRESSION: No acute intracranial process identified. Interpreted By: Skyler Raymond, 02/27/2019 2:38 PM ED Course / Medical Decision Making ED Course as of Feb 27 1607 Tue Feb 27, 2019 1434 Patient given pain medication here. CBC is normal. Chemistry with mild hypokalemia. Magnesium is normal. [MA] 1604 CT of the head, C-spine, T-spine, L-spine, abdomen and pelvis are all negative. X-rays are negative. Patient is sitting up and in no acute distress. Patient has pain medication at home. Will discharge patient home to continue her Keppra as prescribed and follow-up with her neurologist. Return for any worsening problems or concerns. Patient agrees with plan. Blood pressure has improved to 160/95. [MA] ED Course User Index [MA] Sadie Arias MD Clinical Impression Head injury (Primary) Cervical strain, acute, initial encounter Lumbar strain, initial encounter Fall Breakthrough seizure ([facility]) Disposition: Discharge Sadie Arias MD 02/27/19 1607 * Jean Aponte RN - 02/27/2019 12:28 PM CDT Arrives per gbaas with c/o s/p fall. Ems reports pt was found on the floor, fell forward out of herw/c, struck her face on an a/c vent. Pt reported she has not felt well x2 days-had pain near umbilicus and now is across low abd. Does not remember the fall. Also c/o l ankle pain. Small superficial punctures noted to l eyelid and forehead. No active bleeding at this time. Ems reports dried blood was cleaned from face. documented in this encounter Plan of Treatment Not on file documented as of this encounter Procedures Procedure Name Priority Date/Time Associated Diagnosis Comments XR ELBOW RT M3V STAT 02/27/2019 3:28 PM CDT XR ANKLE LT M3V STAT 02/27/2019 3:[address] THOR SPINE WO CON STAT 02/27/2019 2:[address] LUMB SPINE WO CON STAT 02/27/2019 2:[address] HEAD WO CON STAT 02/27/2019 2:[address] CERV SPINE WO CON STAT 02/27/2019 2:[address] ABD+PEL W CON STAT 02/27/2019 2:48 PM CDT COMPREHENSIVE METABOLIC PANEL STAT 02/27/2019 1:20 PM CDT CBC W/DIFF AUTOMATED STAT 02/27/2019 1:20 PM CDT MAGNESIUM STAT 02/27/2019 1:20 PM CDT documented in this encounter Results * XR ELBOW RT M3V (02/27/2019 3:28 PM CDT) Anatomical Region Laterality Modality Elbow Radiographic Malgorzata ging 02/27/2019 3:50 PM CDT Impressions 02/27/2019 3:51 PM CDT IMPRESSION: No acute findings. Interpreted By: Skyler Raymond, 02/27/2019 3:50 PM Narrative 02/27/2019 3:51 PM CDT Examination: Right elbow. Exam time: 1530 hours. Clinical history: Pain after a fall. Comparison: None. Technique: Three views. Findings: No fracture, dislocation or other acute bony abnormality is identified. ?No other significant bone or joint abnormality is noted. ?? The soft tissues are ? unremarkable. Procedure Note Skyler Raymond MD - 02/27/2019 Examination: Right elbow. Exam time: 1530 hours. Clinical history: Pain after a fall. Comparison: None. Technique: Three views. Findings: No fracture, dislocation or other acute bony abnormality is identified. No other significant bone or joint abnormality is noted. The soft tissues are unremarkable. IMPRESSION: No acute findings. Interpreted By: Skyler Raymond, 02/27/2019 3:50 PM us Sadie Arias MD GENERAL IMAGING Final Resul t * XR ANKLE LT M3V (02/27/2019 3:28 PM CDT) Anatomical Region Laterality Modality Ankle Radiographic Malgorzata ging 02/27/2019 3:49 PM CDT Impressions 02/27/2019 3:52 PM CDT IMPRESSION: No acute findings. Interpreted By: Skyler Raymond, 02/27/2019 3:49 PM Narrative 02/27/2019 3:52 PM CDT Examination: Left ankle. Exam time: 1527 hours. Clinical history: Pain after a fall. Comparison: None. Technique: Three views. Findings: No fracture, dislocation or other acute bony abnormality is identified. ?No other significant bone or joint abnormality is noted. ?? The soft tissues are ? unremarkable. Procedure Note Skyler Raymond MD - 02/27/2019 Examination: Left ankle. Exam time: 1527 hours. Clinical history: Pain after a fall. Comparison: None. Technique: Three views. Findings: No fracture, dislocation or other acute bony abnormality is identified. No other significant bone or joint abnormality is noted. The soft tissues are unremarkable. IMPRESSION: No acute findings. Interpreted By: Skyler Raymond, 02/27/2019 3:49 PM us Sadie Arias MD GENERAL IMAGING Final Resul t * CT ABD+PEL W IV CON ONLY (02/27/2019 2:48 PM CDT) Anatomical Region Laterality Modality Abdomen Computed Tomogra phy 02/27/2019 3:00 PM CDT Impressions 02/27/2019 3:07 PM CDT IMPRESSION: 1. No acute intra-abdominal or intrapelvic process identified. 2. Redemonstrated hepatic steatosis. 3. Bilateral nephrolithiasis. Interpreted By: Skyler Raymond, 02/27/2019 3:00 PM Narrative 02/27/2019 3:07 PM CDT Examination: CT of the abdomen and pelvis with contrast. Exam time: 1434 hours. Clinical history: Trauma. Unwitnessed fall. Now complains of right lower quadrant pain. History of urolithiasis. Prior cholecystectomy and hysterectomy. Comparison: 08/11/2016 (noncontrast). Technique: Following the administration of ? intravenous contrast, spiral scanning was performed through the abdomen and pelvis. Coronal and sagittal reconstructions were performed from the data set. A dose lowering technique was used for this procedure, which may include, but is not limited to, dose reduction techniques, automated exposure control, the use of iterative reconstruction and ALARA/Image Gently techniques. Findings: There is bilateral dependent subsegmental atelectasis. Middle lobe granuloma is again noted. Allowing for minor respiratory motion, the lung bases are otherwise clear. No pleural effusions are seen. Cholecystectomy is again evident with clips in the gallbladder fossa. The liver remains diffusely diminished in attenuation relative to the spleen, compatible with steatosis. Other than the use of contrast, the liver, spleen, pancreas and adrenal glands appear unchanged and unremarkable. Bilateral nephrolithiasis is again evident with no dramatic change in the stone burden. The kidneys are otherwise unremarkable. No ureteral calculi or signs of obstructive uropathy are identified. The urinary bladder appears unremarkable. The uterus is not identified, compatible with the history. A normal-appearing appendix is visible. There is no ascites, free air, lymphadenopathy or bowel distention. The caliber of the abdominal aorta is normal. No acute bony injury is identified. Procedure Note Skyler Raymond MD - 02/27/2019 Examination: CT of the abdomen and pelvis with contrast. Exam time: 1434 hours. Clinical history: Trauma. Unwitnessed fall. Now complains of right lower quadrant pain. History of urolithiasis. Prior cholecystectomy and hysterectomy. Comparison: 08/11/2016 (noncontrast). Technique: Following the administration of intravenous contrast,spiral scanning was performed through the abdomen and pelvis. Coronal andsagittal reconstructions were performed from the data set. A dose loweringtechnique was used for this procedure, which may include, but is not limited to,dose reduction techniques, automated exposure control, the use of iterative reconstruction and ALARA/Image Gently techniques. Findings: There is bilateral dependent subsegmental atelectasis. Middle lobe granuloma is again noted. Allowing for minor respiratory motion,the lung bases are otherwise clear. No pleural effusions are seen. Cholecystectomy is again evident with clips in the gallbladder fossa.The liver remains diffusely diminished in attenuation relative to thespleen, compatible with steatosis. Other than the use of contrast, the liver, spleen, pancreas and adrenal glands appear unchanged and unremarkable. Bilateral nephrolithiasis is again evident with no dramatic change inthe stone burden. The kidneys are otherwise unremarkable. No ureteralcalculi or signs of obstructive uropathy are identified. The urinary bladder appears unremarkable. The uterus is not identified, compatible with the history. A normal-appearing appendix is visible. There is no ascites,free air, lymphadenopathy or bowel distention. The caliber of the abdominal aorta is normal. No acute bony injury is identified. IMPRESSION: 1. No acute intra-abdominal or intrapelvic process identified. 2. Redemonstrated hepatic steatosis. 3. Bilateral nephrolithiasis. Interpreted By: Skyler Raymond, 02/27/2019 3:00 PM Sadie Arias MD CT Final Resul t * CT LUMB SPINE WO CON (02/27/2019 2:48 PM CDT) Anatomical Region Laterality Modality Spine Computed Tomogra phy 02/27/2019 2:48 PM CDT Impressions 02/27/2019 2:57 PM CDT IMPRESSION: 1. No acute traumatic spinal injury identified. 2. Coronary artery disease. 3. Bilateral nephrolithiasis. Interpreted By: Skyler Raymond, 02/27/2019 2:48 PM Narrative 02/27/2019 2:57 PM CDT Examination: CT of the thoracic and lumbar spine. Exam time: 1427 hours. Clinical history: Trauma. Unwitnessed fall. Comparison: CT of the abdomen and pelvis from the same date. Technique: Noncontrast thin section spiral axial scans were acquired through the thoracic spine. Sagittal and coronal reconstructions were performed from the data set. Reformatted sagittal, axial and coronal images from the CT abdomen and pelvis data set were tailored for the lumbar spine. A dose lowering technique was used for this procedure, which may include, but is not limited to, dose reduction techniques, automated exposure control, the use of iterative reconstruction and ALARA/Image Gently techniques. Findings: THORACIC SPINE: There is no fracture or dislocation. The reconstructions confirm maintenance of vertebral body height and alignment. The neural foramina and central canal appear patent. The spinal canal contents, as visualized, appear unremarkable. There is no paraspinal edema or hematoma. Calcific coronary artery disease, ectasia of the ascending aorta and calcified granulomatous scarring in the thorax noted. LUMBAR SPINE: There is no fracture or dislocation. The reconstructions confirm maintenance of vertebral body height and alignment. The intervertebral discs are maintained normally in height. There is minor paravertebral osteophyte formation. The neural foramina and central canal appear patent. The spinal canal contents, as visualized, appear unremarkable. There is no paraspinal edema or hematoma. There is bilateral nephrolithiasis. Cholecystectomy is noted. Procedure Note Skyler Raymond MD - 02/27/2019 Examination: CT of the thoracic and lumbar spine. Exam time: 1427 hours. Clinical history: Trauma. Unwitnessed fall. Comparison: CT of the abdomen and pelvis from the same date. Technique: Noncontrast thin section spiral axial scans were acquired through the thoracic spine. Sagittal and coronal reconstructions were performed from the data set. Reformatted sagittal, axial and coronalimages from the CT abdomen and pelvis data set were tailored for the lumbarspine. A dose lowering technique was used for this procedure, which mayinclude, but is not limited to, dose reduction techniques, automated exposure control, the use of iterative reconstruction and ALARA/Image Gently techniques. Findings: THORACIC SPINE: There is no fracture or dislocation. The reconstructions confirm maintenance of vertebral body height and alignment. The neural foramina and central canal appear patent. The spinal canal contents, as visualized, appear unremarkable. There is no paraspinal edema orhematoma. Calcific coronary artery disease, ectasia of the ascending aorta and calcified granulomatous scarring in the thorax noted. LUMBAR SPINE: There is no fracture or dislocation. The reconstructions confirm maintenance of vertebral body height and alignment. The intervertebral discs are maintained normally in height. There is minor paravertebral osteophyte formation. The neural foramina and centralcanal appear patent. The spinal canal contents, as visualized, appear unremarkable. There is no paraspinal edema or hematoma. There isbilateral nephrolithiasis. Cholecystectomy is noted. IMPRESSION: 1. No acute traumatic spinal injury identified. 2. Coronary artery disease. 3. Bilateral nephrolithiasis. Interpreted By: Skyler Raymond, 02/27/2019 2:48 PM us Sadie Arias MD CT Final Resul t * CT THOR SPINE WO CON (02/27/2019 2:48 PM CDT) Anatomical Region Laterality Modality Spine Computed Tomogra phy 02/27/2019 2:48 PM CDT Impressions 02/27/2019 2:57 PM CDT IMPRESSION: 1. No acute traumatic spinal injury identified. 2. Coronary artery disease. 3. Bilateral nephrolithiasis. Interpreted By: Skyler Raymond, 02/27/2019 2:48 PM Narrative 02/27/2019 2:57 PM CDT Examination: CT of the thoracic and lumbar spine. Exam time: 1427 hours. Clinical history: Trauma. Unwitnessed fall. Comparison: CT of the abdomen and pelvis from the same date. Technique: Noncontrast thin section spiral axial scans were acquired through the thoracic spine. Sagittal and coronal reconstructions were performed from the data set. Reformatted sagittal, axial and coronal images from the CT abdomen and pelvis data set were tailored for the lumbar spine. A dose lowering technique was used for this procedure, which may include, but is not limited to, dose reduction techniques, automated exposure control, the use of iterative reconstruction and ALARA/Image Gently techniques. Findings: THORACIC SPINE: There is no fracture or dislocation. The reconstructions confirm maintenance of vertebral body height and alignment. The neural foramina and central canal appear patent. The spinal canal contents, as visualized, appear unremarkable. There is no paraspinal edema or hematoma. Calcific coronary artery disease, ectasia of the ascending aorta and calcified granulomatous scarring in the thorax noted. LUMBAR SPINE: There is no fracture or dislocation. The reconstructions confirm maintenance of vertebral body height and alignment. The intervertebral discs are maintained normally in height. There is minor paravertebral osteophyte formation. The neural foramina and central canal appear patent. The spinal canal contents, as visualized, appear unremarkable. There is no paraspinal edema or hematoma. There is bilateral nephrolithiasis. Cholecystectomy is noted. Procedure Note Skyler Raymond MD - 02/27/2019 Examination: CT of the thoracic and lumbar spine. Exam time: 1427 hours. Clinical history: Trauma. Unwitnessed fall. Comparison: CT of the abdomen and pelvis from the same date. Technique: Noncontrast thin section spiral axial scans were acquired through the thoracic spine. Sagittal and coronal reconstructions were performed from the data set. Reformatted sagittal, axial and coronalimages from the CT abdomen and pelvis data set were tailored for the lumbarspine. A dose lowering technique was used for this procedure, which mayinclude, but is not limited to, dose reduction techniques, automated exposure control, the use of iterative reconstruction and ALARA/Image Gently techniques. Findings: THORACIC SPINE: There is no fracture or dislocation. The reconstructions confirm maintenance of vertebral body height and alignment. The neural foramina and central canal appear patent. The spinal canal contents, as visualized, appear unremarkable. There is no paraspinal edema orhematoma. Calcific coronary artery disease, ectasia of the ascending aorta and calcified granulomatous scarring in the thorax noted. LUMBAR SPINE: There is no fracture or dislocation. The reconstructions confirm maintenance of vertebral body height and alignment. The intervertebral discs are maintained normally in height. There is minor paravertebral osteophyte formation. The neural foramina and centralcanal appear patent. The spinal canal contents, as visualized, appear unremarkable. There is no paraspinal edema or hematoma. There isbilateral nephrolithiasis. Cholecystectomy is noted. IMPRESSION: 1. No acute traumatic spinal injury identified. 2. Coronary artery disease. 3. Bilateral nephrolithiasis. Interpreted By: Skyler Raymond, 02/27/2019 2:48 PM us Sadie Arias MD CT Final Resul t * CT CERV SPINE WO CON (02/27/2019 2:48 PM CDT) Anatomical Region Laterality Modality Spine Computed Tomogra phy 02/27/2019 2:42 PM CDT Impressions 02/27/2019 2:47 PM CDT IMPRESSION: 1. No acute traumatic injury identified. 2. Spondylosis as described. Interpreted By: Skyler Raymond, 02/27/2019 2:42 PM Narrative 02/27/2019 2:47 PM CDT Examination: CT of the cervical spine. Exam time: 1426 hours. Clinical history: Trauma. Unwitnessed fall. Comparison: None. Technique: Thin section spiral axial scans were acquired from the skull base through the T1-2 level without contrast. Sagittal and coronal reconstructions were performed from the data set. A dose lowering technique was used for this procedure, which may include, but is not limited to, dose reduction techniques, automated exposure control, the use of iterative reconstruction and ALARA/Image Gently techniques. Findings: There is no fracture or dislocation. The reconstructions confirm maintenance of vertebral body height. Loss of the normal lordosis is attributed to the presence of the collar. Alignment is otherwise satisfactory. Varying degrees of disc narrowing and paravertebral osteophyte formation are present from C3-4 through C6-7. The other intervertebral discs are maintained normally in height. There is osteophytic foraminal impingement on the right at C4-5 and bilaterally at C5-6 and C6-7. The neural foramina and central canal are otherwise generally patent. The spinal canal contents, as visualized, appear unremarkable. There is no paraspinal edema or hematoma. Procedure Note Skyler Raymond MD - 02/27/2019 Examination: CT of the cervical spine. Exam time: 1426 hours. Clinical history: Trauma. Unwitnessed fall. Comparison: None. Technique: Thin section spiral axial scans were acquired from the skull base through the T1-2 level without contrast. Sagittal and coronal reconstructions were performed from the data set. A dose loweringtechnique was used for this procedure, which may include, but is not limited to,dose reduction techniques, automated exposure control, the use of iterative reconstruction and ALARA/Image Gently techniques. Findings: There is no fracture or dislocation. The reconstructionsconfirm maintenance of vertebral body height. Loss of the normal lordosis is attributed to the presence of the collar. Alignment is otherwise satisfactory. Varying degrees of disc narrowing and paravertebral osteophyte formation are present from C3-4 through C6-7. The other intervertebral discs are maintained normally in height. There is osteophytic foraminal impingement on the right at C4-5 and bilaterallyat C5-6 and C6-7. The neural foramina and central canal are otherwise generally patent. The spinal canal contents, as visualized, appear unremarkable. There is no paraspinal edema or hematoma. IMPRESSION: 1. No acute traumatic injury identified. 2. Spondylosis as described. Interpreted By: Skyler Raymond, 02/27/2019 2:42 PM us Sadie Arias MD CT Final Resul t * CT HEAD WO CON (02/27/2019 2:48 PM CDT) Anatomical Region Laterality Modality Head Computed Tomogra phy 02/27/2019 2:38 PM CDT Impressions 02/27/2019 2:41 PM CDT IMPRESSION: No acute intracranial process identified. Interpreted By: Skyler Raymond, 02/27/2019 2:38 PM Narrative 02/27/2019 2:41 PM CDT Examination: CT of the head without contrast. Exam time: 1426 hours. Clinical history: Trauma. Unwitnessed fall. Headache. Comparison: 08/04/2016. Technique: Noncontrast axial scans from skull base to vertex. ??A dose lowering technique was used for this procedure, which may include, but is not limited to, dose reduction techniques, automated exposure control, the use of iterative reconstruction and ALARA/Image Gently techniques. Findings: The ventricles are normal in size and configuration and unchanged. No shift of midline or mass effect is noted. No areas of abnormal x-ray attenuation are identified. In particular, there is no mass, hemorrhage or sign of acute stroke. No extracerebral fluid collections. The skull appears intact. The mastoid air cells and paranasal sinuses appear clear. Procedure Note Skyler Raymond MD - 02/27/2019 Examination: CT of the head without contrast. Exam time: 1426 hours. Clinical history: Trauma. Unwitnessed fall. Headache. Comparison: 08/04/2016. Technique: Noncontrast axial scans from skull base to vertex. A dose lowering technique was used for this procedure, which may include, butis not limited to, dose reduction techniques, automated exposure control,the use of iterative reconstruction and ALARA/Image Gently techniques. Findings: The ventricles are normal in size and configuration and unchanged. No shift of midline or mass effect is noted. No areas of abnormal x-ray attenuation are identified. In particular, there is nomass, hemorrhage or sign of acute stroke. No extracerebral fluid collections.The skull appears intact. The mastoid air cells and paranasal sinuses appear clear. IMPRESSION: No acute intracranial process identified. Interpreted By: Skyler Raymond, 02/27/2019 2:38 PM Sadie Arias MD CT Final Resul t * MAGNESIUM (02/27/2019 1:20 PM CDT) MAGNESIUM 1.9 1.8 - 2.4 MG/DL 02/27/2019 1:58 PM CDT [facility] 02/27/2019 1:20 PM CDT Sadie Arias MD LABORATORY Final Resul t [facility] [address] [place] [address], * (ABNORMAL) COMPREHENSIVE METABOLIC PANEL (02/27/2019 1:20 PM CDT) SODIUM S/P/B 144 136 - 145 MMOL/L 02/27/2019 1:58 PM CDT [facility] POTASSIUM S/P/B 3.3(L) 3.5 - 5.1 MMOL/L 02/27/2019 1:58 PM CDT [facility] CHLORIDE S/P/B 108(H) 98 - 107 MMOL/L 02/27/2019 1:58 PM CDT [facility] CO2 29.9 21.0 - 32.0 MMOL/L 02/27/2019 1:58 PM CDT [facility] GLUCOSE 88 70 - 99 MG/DL 02/27/2019 1:58 PM CDT [facility] Comment: FASTING GLUCOSE 100 TO 125 MG/DL IS CONSISTENT WITH IMPAIRED FASTING GLUCOSE. FASTING GLUCOSE >125 MG/DL IS CONSISTENT WITH DIABETES. RANDOM GLUCOSE >200 MG/DL WITH HYPERGLYCEMIC SYMPTOMS IS CONSISTENT WITH DIABETES. PER ADA GUIDELINES BUN 7 6 - 24 MG/DL 02/27/2019 1:58 PM CDT [facility] CREATININE S/P/B 0.71 0.55 - 1.02 MG/DL 02/27/2019 1:58 PM CDT [facility] CALCIUM S/P/B 7.8(L) 8.4 - 10.5 MG/DL 02/27/2019 1:58 PM CDT [facility] BILIRUBIN TOTAL S/P/B 0.3 0.2 - 1.0 MG/DL 02/27/2019 1:58 PM [facility] ALKALINE PHOSPHATASE S/P/B 142(H) 41 - 108 U/L 02/27/2019 1:58 PM [facility] AST 18 15 - 37 U/L 02/27/2019 1:58 PM [facility] ALT 27 14 - 59 U/L 02/27/2019 1:58 PM [facility] TOTAL PROTEIN S/P/B 6.4 6.4 - 8.2 G/DL 02/27/2019 1:58 PM [facility] ALBUMIN S/P/B 3.1(L) 3.4 - 5.0 G/DL 02/27/2019 1:58 PM [facility] ANION GAP 6.1 5.0 - 15.0 MMOL/L 02/27/2019 1:58 PM [facility] OSMOLALITY (CALC) 295 MOSM/KG 02/27/2019 1:58 PM [facility] Comment:REFERENCE RANGE NOT ESTABLISHED EGFR NON-AFR. AMER. >90 >89 ML/MIN/1 .73 M2 02/27/2019 1:58 PM [facility] EGFR AFR. AMER. >90 >89 ML/MIN/1 .73 M2 02/27/2019 1:58 PM [facility] GFR NOTES THE ESTIMATED GFR IS CALCULATED USING THE 2009 CKD-EPI EQUATION. THE FOLLOWING CATEGORIES FOR GRADING RENAL FUNCTION ARE RECOMMENDED BY THE INTERNATIONAL SOCIETY OF NEPHROLOGY (KDIGO 2012 CLINICAL PRACTICE GUIDELINE). 02/27/2019 1:58 PM [facility] Comment: G1,NORMAL OR HIGH: >89 ml/min/1.73 m2 G2,MILDLY DECREASED: 60-89 ml/min/1.73 m2 G3A,MILDLY TO MODERATELY DECREASED: 45-59 ml/min/1.73 m2 G3B,MODERATELY TO SEVERELY DECREASED: 30-44 ml/min/1.73 m2 G4,SEVERELY DECREASED: 15-29 ml/min/1.73 m2 G5,KIDNEY FAILURE: <15 ml/min/1.73 m2 02/27/2019 1:20 PM CDT us Sadie Arias MD LABORATORY Final Resul t [facility] [address] [employer] [place] [address], * (ABNORMAL) CBC W/DIFF AUTOMATED (02/27/2019 1:20 PM CDT) WBC 9.7 4.5 - 10.8 x10'3/uL 02/27/2019 1:42 PM CDT [facility] RBC 4.70 4.10 - 5.40 x10'6/uL 02/27/2019 1:42 PM CDT [facility] HGB 15.0 12.0 - 16.0 G/DL 02/27/2019 1:42 PM CDT [facility] HCT 44.2 36.0 - 47.0 % 02/27/2019 1:42 PM CDT [facility] MCV 94.0 78.0 - 100.0 FL 02/27/2019 1:42 PM CDT [facility] MCH 31.9(H) 27.0 - 31.0 PG 02/27/2019 1:42 PM CDT [facility] MCHC 33.9 33.0 - 36.0 G/DL 02/27/2019 1:42 PM CDT [facility] RDW 14.4 11.5 - 14.5 % 02/27/2019 1:42 PM CDT [facility] PLT 187 150 - 350 x10'3/uL 02/27/2019 1:42 PM CDT [facility] MPV 12.9(H) 7.4 - 10.4 FL 02/27/2019 1:42 PM CDT [facility] DIFFERENTIAL COMMENT NORMAL REFERENCE RANGE NOT ESTABLISHED FOR THE PROPORTIONAL LEUKOCYTE DIFFERENTIAL. 02/27/2019 1:42 PM CDT [facility] SEG NEUTROPHILS 71.2 % 9 1:42 PM CDT [facility] LYMPHOCYTES 20.1 % 02/27/2019 1:42 PM CDT [facility] MONOCYTES 6.5 % 02/27/2019 1:42 PM CDT [facility] EOSINOPHILS 1.2 % 02/27/2019 1:42 PM CDT [facility] BASOPHILS 0.7 % 02/27/2019 1:42 PM CDT [facility] IMMATURE GRANS % 0.3 % 02/28/20 19 1:42 PM CDT [facility] NRBC 0.0 % 02/27/2019 1:42 PM CDT [facility] ABS. NEUTROPHILS 6.92 1.60 - 8.30 x10'3/uL 02/27/2019 1:42 PM CDT [facility] ABS. LYMPHOCYTES 1.95 0.80 - 4.70 x10'3/uL 02/27/2019 1:42 PM CDT [facility] ABS. MONOCYTES 0.63 0.00 - 1.50 x10'3/uL 02/27/2019 1:42 PM CDT [facility] ABS. EOSINOPHILS 0.12 0.00 - 0.40 x10'3/uL 02/27/2019 1:42 PM CDT [facility] ABS. BASOPHILS 0.07 0.00 - 0.20 x10'3/uL 02/27/2019 1:42 PM CDT [facility] ABS. IMMATURE GRANULOCYTES 0.03 0.00 - 0.03 x10'3/uL 02/27/2019 1:42 PM CDT [facility] ABS. NUCLEATED RBC'S 0.00 0.00 x10'3/uL 02/27/2019 1:42 PM CDT [facility] 02/27/2019 1:20 PM CDT us Sadie Arias MD LABORATORY Final Resul t [facility] [address] [employer] [place] [address], documented in this encounter Visit Diagnoses Diagnosis Head injury- Primary Head injury, unspecified Cervical strain, acute, initial encounter Lumbar strain, initial encounter Fall Unspecified fall Breakthrough seizure ([facility]) Unspecified epilepsy with intractable epilepsy documented in this encounter Administered Medications Inactive Administered Medications - up to 3 most recent administrations Medication Order MAR Action Action Date Dose Rate Site fentaNYL (SUBLIMAZE) injection 100 mcg 100 mcg, Intravenous, Once, 1 dose, On Tue02/27/19 at 1315, If intravenous (IV) route has been ordered, give over 1-2 minutes. Given 02/27/2019 1:49 PM CDT 100 mcg iopamidol (ISOVUE-370) 76 % injection 95 mL 95 mL, Intravenous, IMG once as needed, Contrast, 1 dose, Starting on Tue02/27/19 at 1427, Until Tue02/27/19 at 1427 Given 02/27/2019 2:27 PM CDT 95 mLs ondansetron (ZOFRAN) injection 4 mg 4 mg, Intravenous, Once, 1 dose, On Tue02/27/19 at 1315, IV push over 2-5 minutes. Given 02/27/2019 1:38 PM CDT 4 mg documented in this encounter Active and Recently Administered Medications Times are shown in CDT. Scheduled Medication Order 02/25/2019 02/26/2019 02/27/2019 fentaNYL (SUBLIMAZE) injection 100 mcg (COMPLETED) 100 mcg, Intravenous, Once, 1 dose, On Tue02/27/19 at 1315, If intravenous (IV) route has been ordered, give over 1-2 minutes. 1349 (Given - Provid er: Rakel Guzman RN) ondansetron (ZOFRAN) injection 4 mg (COMPLETED) 4 mg, Intravenous, Once, 1 dose, On Tue02/27/19 at 1315, IV push over 2-5 minutes. 1338 (Given - Provid er: Rakel Guzman RN) PRN Medication Order 02/25/2019 02/26/2019 02/27/2019 iopamidol (ISOVUE-370) 76 % injection 95 mL (COMPLETED) 95 mL, Intravenous, IMG once as needed, Contrast, 1 dose, Starting on Tue02/27/19 at 1427, Until Tue02/27/19 at 1427 1427 (Given - Provid er: Sepideh Oliva, RTR) documented in this encounter Care Teams [place] Relationship Specialty Start Date End Date Warren Cowan MD [phone] [address] PCP - General FAMILY PRACTICE 02/27/19 documented as of this encounter
--- OUTSIDE RECORDS SUMMARY | 2024-07-07 16:58 | XMS_ITS | Encounter Summary ---
Author Organization [facility] Address [address] [place] [address]. [place] [address] [place] [address] Care Team Providers Care Well Shooter Name Role Phone Unavailable Primary Care Provider Unavailabl e Encounter Details Date Type Department Care Team (Late st Contact Info) Description 05/11/2016 Abstract [facility] Emergency Room [address] [place], [place] [id number] Social History Tobacco Use Types Packs/Day Years Used Date Smoking Tobacco: Never Assessed Comments Unknown Sex and Gender Information Value Date Recorded Sex Assigned at Not on file Legal Sex Female 1:10 AM CDT Gender Identity Not on file Sexual Orientation Not on file documented as of this encounter Plan of Treatment Not on file documented as of this encounter Visit Diagnoses Diagnosis Myalgia Mylagia and myositis, unspecified documented in this encounter
--- OUTSIDE RECORDS SUMMARY | 2024-07-07 16:58 | XMS_ITS | Encounter Summary ---
Author Organization [facility] Address [address] [place] [address]. [place] [address] [place] [address] Care Team Providers Care University Relations Vice President Name Role Phone Unavailable Primary Care Provider Unavailabl e Encounter Details Date Type Department Care Team (Late st Contact Info) Description 08/04/2016 Abstract [facility] [address] [facility] [place] [address] Social History Tobacco Use Types Packs/Day Years Used Date Smoking Tobacco: Never Assessed Comments Unknown Sex and Gender Information Value Date Recorded Sex Assigned at Not on file Legal Sex Female 1:10 AM CDT Gender Identity Not on file Sexual Orientation Not on file documented as of this encounter Plan of Treatment Not on file documented as of this encounter Visit Diagnoses Diagnosis Syncope and collapse documented in this encounter
--- OUTSIDE RECORDS SUMMARY | 2024-07-07 16:58 | XMS_ITS | Encounter Summary ---
Author Organization [facility] Address [address] [place] [address]. [place], [place] [address] [place] [address] Care Team Providers Care Dock Associate Name Role Phone Unavailable Primary Care Provider Unavailabl e Encounter Details Date Type Department Care Team (Latest Contact Info) Description 03/29/2014 Abstract [facility] , Elfego ConversionMD Social History Tobacco Use Types Packs/Day Years [...] Procedure Name Priority Date/Time Associated Diagnosis Comments CARDIOLOGY GENERIC Routine 03/29/2014 7: 25 AM CDT documented in this encounter Results * CARDIOLOGY GENERIC (03/29/2014 7:25 AM CDT) 03/29/2014 7:25 AM CDT 03/29/2014 7:25 AM CDT Narrative [facility] TO EPIC CONVERSION - 04/01/2014 5:25 AM CDT ?? ABIODUN BUCHANAN ORDERING MD: HANG FLAHERTY MD ?? ACCT: [id number] ?? ADMIT/SERVICE DATE: 03/28/14 DISCHARGE DATE: 03/28/14 ?? : 1965 PT TYPE: DEP ER ?? SEX: F ORD SITE: [facility] ? CHART DOCUMENT ?? EKG NO: ??6224 ?? DATE: ??03/28/2014 ? ORDER #: ??[id number] ?EKG REPORT ? RATE: ??96 ? GA: ??0.120 ?QRS: ?? 0.072 ? INTERPRETATION: ?? SINUS RHYTHM. ??CONSIDERABLE ARTIFACT AND VARIABLE BASELINE. ?? RECOMMEND ?? REPEAT EKG. ? ELECTRONICALLY SIGNED BY ?? MARYANN CELAYA MD 04/01/2014 05:23 A ? DN/SP ?? 03/29/201407:25 A ?? 03/29/2014 08:43 A ?? JOB NO: ??[id number] ??DOC NO: ??[id number] ?? CC: ?OTHER COPY ?MARYANN CELAYA MD ? Procedure Note Elfego Shine MD - 04/27/2018 ABIODUN BUCHANAN MD: HANG FLAHERTY MD ACCT: [id number] ADMIT/SERVICE DATE: 03/28/14 DISCHARGE DATE: 03/28/14 : 1965 PT TYPE: DEP ER SEX: F ORD SITE: [facility] CHART DOCUMENT EKG NO: [id number] DATE: 03/28/2014 ORDER #: [id number] EKG REPORT RATE: 96 GA: 0.120 QRS: 0.072 INTERPRETATION: SINUS RHYTHM. CONSIDERABLE ARTIFACT AND VARIABLE BASELINE. RECOMMEND REPEAT EKG. ELECTRONICALLY SIGNED BY MARYANN CELAYA MD 04/01/2014 05:23 A DN/SP 03/29/201407:25 A 03/29/2014 08:43 A JOB NO: [id number] DOC NO: [id number] CC: OTHER COPY MARYANN CELAYA MD us Elfego Morris Md, MD [facility] Final Result [facility] TO EPIC CONVERSION documented in this encounter Visit Diagnoses Not on filedocumented in this encounter
--- OUTSIDE RECORDS SUMMARY | 2024-07-07 16:58 | XMS_ITS | Encounter Summary ---
Author Organization [facility] Address [facility]. [place], [place] [address] [place] [address] Care Team Providers Care Customer Service Associate Name Role Phone Unavailable Primary Care Provider Unavailabl e Encounter Details Date Type Department Care Team (Latest Contact Info) Description 10/12/2013 Abstract [facility] Hiro Gonzalez MD Social History Tobacco Use Types Packs/Day Years Used Date Smoking Tobacco: Never Assessed Comments Unknown Sex and Gender Information Value Date Recorded Sex Assigned at Not on file Legal Sex Female 1:10 AM CDT Gender Identity Not on file Sexual Orientation Not on file documented as of this encounter Progress Notes * Hiro Gonzalez MD - 10/11/2013 12:00 AM CDT [place] [address] Patient: ABIODUN BUCHANAN [facility] Rec#: [id number] Birthdate: 1965 Admit/Svce Date: 10/10/2013 Disch Date: 10/11/2013 Attending Md: HIRO GONZALEZ MD CHART DOCUMENT CLINICAL RESUME Admitted last night with atypical chest pain. She has a complicated medical history of depression, anxiety, fibromyalgia, lupus, some obesity. She has a family history important for coronary artery heart disease. Her cholesterol came back today quite elevated: Triglycerides 212, Total Cholesterol 304, LDL 208, HDL 53. Dr. Graf saw her today in consultation, he thinks it is safe to let her go home and schedule a stress test as an outpatient. Recommend that we watch her cholesterol, she will need to follow-up with her primary care physician, Dr. Cowan, and she will eventually need some cholesterol medicine. At this time she is going to be going home and, like I said, she is going to schedule a stress test with Dr. Graf. She will continue with her usual medications. Her white count on admission was 14,000 and this morning it was 12,000. She does have some low grade temperatures. Her chest xray was normal. Urinalysis was not done. She does have Macrobid at home that she takes whenever she gets a UTI, after she has intercourse she uses Macrobid so she will continue with that and take that if needed. Recommended to check her temperatures on a regular basis and to see her primary doctor if she has more temperatures. Otherwise, she will need to address her Cholesterol issues with her PCP. It is important to remark that all the cardiac enzymes and electrocardiograms were unremarkable. Discharge Diagnosis: 1.Atypical chest pain. 2.Low grade temperature, probably a virus infection. 3.History of multiple medical issues with depression, fibromyalgia, lupus, hypercholesterolemia, peptic acid disease, stress incontinence. Electronically Signed by Hiro Gonzalez MD 10/16/2013 12:21AA/djm 10/11/2013 10/12/2013 7:27 A Job No: Doc No: [id number] cc: Warren Cowan MD documented in this encounter Plan of Treatment Not on file documented as of this encounter Visit Diagnoses Not on filedocumented in this encounter
--- OUTSIDE RECORDS SUMMARY | 2024-07-07 16:58 | XMS_ITS | Encounter Summary ---
Author Organization [facility] Address [facility] [place] [address] [place] [address] Care Team Providers Care Psychologist Experimental Name Role Phone Unavailable Primary Care Provider Unavailabl e Encounter Details Date Type Department Care Team (Late st Contact Info) Description 04/22/2014 Abstract [facility] Emergency Room [address] [place], [place] [id number] Khadijah Alexander, [employer] [address] [facility] [address] [address] Social History Tobacco Use Types Packs/Day Years Used Date Smoking Tobacco: Never Assessed Comments Unknown Sex and Gender Information Value Date Recorded Sex Assigned at Not on file Legal Sex Female 1:10 AM CDT Gender Identity Not on file Sexual Orientation Not on file documented as of this encounter Plan of Treatment Not on file documented as of this encounter Visit Diagnoses Diagnosis Contusion Contusion of unspecified site documented in this encounter
--- OUTSIDE RECORDS SUMMARY | 2024-07-07 16:58 | XMS_ITS | Encounter Summary ---
Author Organization [facility] Address [address] [place] [address]. [place], [place] [address] [place] [address] Care Team Providers Care Mill Manager Name Role Phone Unavailable Primary Care Provider Unavailabl e Encounter Details Date Type Department Care Team (Late st Contact Info) Description 05/15/2010 Abstract [facility] Emergency Room [address] [place] [address] Elie Kaufman MD Social History Tobacco Use [...] as of this encounter Visit Diagnoses Diagnosis Abdominal pain of other specified site documented in this encounter
--- OUTSIDE RECORDS SUMMARY | 2024-07-07 16:58 | XMS_ITS | Encounter Summary ---
Author Organization [facility] Address [address] [place] [address]. [place], [place] [address] [place] [address] Care Team Providers Care Medication Assistant Name Role Phone Unavailable Primary Care Provider Unavailabl e Encounter Details Date Type Department Care Team (Latest Contact Info) Description 03/29/2014 Abstract [facility] [place] [address] [place] [address] Social History Tobacco Use Types Packs/Day Years Used Date Smoking Tobacco: Never Assessed Comments Unknown Sex and Gender Information Value Date Recorded Sex Assigned at Not on file Legal Sex Female 1:10 AM CDT Gender Identity Not on file Sexual Orientation Not on file documented as of this encounter Procedure Notes * Venkatesh Moraes MD - 03/29/2014 7:25 AM CDT [place] [address] Patient: ABIODUN BUCHANAN [facility] Rec#: [id number] Birthdate: 1965 Admit/Svce Date: 03/28/2014 Disch Date: Attending Md: CHART DOCUMENT EKG NO: [id number] DATE: 03/28/2014 ORDER #: [id number] EKG REPORT RATE: 96 [place]: 0.120 QRS: 0.072 INTERPRETATION: Sinus rhythm. Considerable artifact and variable baseline. Recommend repeat EKG. Electronically Signed by Venkatesh Moraes MD 04/01/2014 05:23 A DN/sp 03/29/201407:25 A 03/29/2014 08:43 A Job No: [id number] Doc No: [id number] cc: Other Copy Venkatesh Moraes MD documented in this encounter Plan of Treatment Not on file documented as of this encounter Visit Diagnoses Not on filedocumented in this encounter
--- OUTSIDE RECORDS SUMMARY | 2024-07-07 16:58 | XMS_ITS | Encounter Summary ---
Author Organization [facility] Address [address] [place] [address]. [place], [place] [address] [place] [address] Care Team Providers Care Porter Marina Name Role Phone Unavailable Primary Care Provider Unavailabl e Encounter Details Date Type Department Care Team (Latest Contact Info) Description 05/26/2016 Abstract [facility] , Generic Conversion, Social History Tobacco Use [...] Procedure Name Priority Date/Time Associated Diagnosis Comments PRV ONLY-RESTING TWELVE LEAD EKG Routine 05/26/2016 5:56 PM SEWER AND INSPECTOR documented in this encounter Results * PRV ONLY-RESTING TWELVE LEAD EKG (05/26/2016 5:56 PM SEWER AND INSPECTOR) 05/26/2016 5:56 PM SEWER AND INSPECTOR 05/26/2016 5:56 PM SEWER AND INSPECTOR Narrative [facility] TO EPIC CONVERSION - 05/31/2016 3:03 PM SEWER AND INSPECTOR ?? ABIODUN BUCHANAN ORDERING MD: MAIN KHAN MD ?? ACCT: [id number] ?? ADMIT/SERVICE DATE: 05/26/16 DISCHARGE DATE: 05/26/16 ?? : 1965 PT TYPE: DEP ER ?? SEX: F ORD SITE: [facility] ?[facility] ?TEST DATE: ?2016-05-26 ?? PAT NAME: ? ABIODUN ROBEL ?DEPARTMENT: CARD ?? 85 ? ROOM: ? GENDER: ? FEMALE ? CEO AND CO FOUNDER: ?? LR ?? : ?1965 ? REQUESTED BY: MAIN MOSLENER MAIN MOSLENER ?? ORDER NUMBER: [id number] ?READING MD: ?? BRITTANY GONZALEZ ?MEASUREMENTS ?? INTERVALS ?AXIS ? RATE: ? 88 ? P: ?56 ?? WV: ? 126 ?QRS: ?24 ?? QRSD: ? 86 ? T: ?30 ?? QT: ? 361 ? QTC: ?438 ?INTERPRETIVE STATEMENTS ?? SINUS RHYTHM ?? LOW QRS VOLTAGE IN PRECORDIAL LEADS ?? NONSPECIFIC T-WAVE ABNORMALITY ?? COMPARED TO ECG 10/08/2015 02:16:45 ?? LOW QRS VOLTAGE NOW PRESENT ?? T-WAVE ABNORMALITY NOW PRESENT ?? SINUS TACHYCARDIA NO LONGER PRESENT ?? ST (T WAVE) DEVIATION NO LONGER PRESENT ?? ELECTRONICALLY SIGNED BY BRITTANY GONZALEZ AT 05-31-16 15:01:21 SEWER AND INSPECTOR ? Procedure Note Elfego Nina MD - 04/27/2018 ABIODUN BUCHANAN ORDERING MD: MAIN KHAN MD ACCT: [id number] ADMIT/SERVICE DATE: 05/26/16 DISCHARGE DATE: 05/26/16 : 1965 PT TYPE: DEP ER SEX: F ORD SITE: [facility] TEST DATE: 2016-05-26 PAT NAME: ABIODUN BUCHANAN DEPARTMENT: CARD 85 ROOM: GENDER: FEMALE CEO AND CO FOUNDER: LR : 1965 REQUESTED BY: MAIN KHAN ORDER NUMBER: [id number] READING MD: BRITTANY GONZALEZ MEASUREMENTS INTERVALS AXIS RATE: 88 P: 56 WV: 126 QRS: 24 QRSD: 86 T: 30 QT: 361 QTC: 438 INTERPRETIVE STATEMENTS SINUS RHYTHM LOW QRS VOLTAGE IN PRECORDIAL LEADS NONSPECIFIC T-WAVE ABNORMALITY COMPARED TO ECG 10/08/2015 02:16:45 LOW QRS VOLTAGE NOW PRESENT T-WAVE ABNORMALITY NOW PRESENT SINUS TACHYCARDIA NO LONGER PRESENT ST (T WAVE) DEVIATION NO LONGER PRESENT ELECTRONICALLY SIGNED BY BRITTANY GONZALEZ AT 05-31-16 15:01:21 SEWER AND INSPECTOR us Generic Conversion Md NINA ECHO Final R esult [facility] TO EPIC CONVERSION documented in this encounter Visit Diagnoses Not on filedocumented in this encounter
--- OUTSIDE RECORDS SUMMARY | 2024-07-07 16:58 | XMS_ITS | Encounter Summary ---
Author Organization [facility] Address [facility] [place] [address] [place] [address] Care Team Providers Care Twisting Operator Name Role Phone Unavailable Primary Care Provider Unavailabl e Encounter Details Date Type Department Care Team (Latest Contact Info) Description 12/05/2015 Abstract [facility] Radha Nunez MD [address] [address] Social History Tobacco Use Types Packs/Day Years [...] Procedure Name Priority Date/Time Associated Diagnosis Comments CT ABD+PEL W CON Routine 12/05/2015 3:30 PM CDT documented in this encounter Results * CT ABD+PEL W CON (12/05/2015 3:30 PM CDT) Anatomical Region Laterality Modality Abdomen Computed Tomogra phy 12/05/2015 3:30 PM CDT 12/05/2015 3:30 PM CDT Narrative 12/05/2015 3:44 PM CDT ABIODUN BUCHANAN ? ADMIT/SERVICE DATE: 12/05/15 ?? ACCT: [id number] ?DISCHARGE DATE: ?? : 1965 ??SEX: F ?ORD SITE: [facility] ?? PT TYPE: REG CLI ? ORDERING MD: RADHA NUNEZ MD ? STUDY DATE ? REPORT # ?ORDER # ? EXT ORDER ID ?? 12/05/15 ? [id number] ? [id number] ?[id number] ? PROC CODE: ? [id number] ? PROCEDURE DESCRIPTION: ?? CT ABDOMEN PELVIS W ? IMAGING STUDIES: CT ABDOMEN PELVIS W ?DATE: 12/05/2015 1:32 PM ? CLINICAL HISTORY: OTHER - CT, LLQ PAIN ??. ??HYSTERECTOMY. CHOLECYSTECTOMY. HISTORY OF LUPUS AND SJOGREN'S SYNDROME. ? CONCLUSION: ?? 1. ??ROUTINE CT OF THE ABDOMEN AND PELVIS WITH CONTRAST. COMPARISON OF 10/08/2015 ??IV ADMINISTRATION OF [address]. ? . RADIATION DOSE REDUCTION TECHNIQUE WAS UTILIZED. ? 2. ??THERE IS MILD MUCOSAL THICKENING VERSUS DECOMPRESSED STATE OF THE DESCENDING COLON AND INTO THE PROXIMAL SIGMOID COLON. THIS MAY BE DUE TO COLITIS EITHER INFECTIOUS OR INFLAMMATORY. ALSO SOME POSSIBLE MILD MUCOSAL THICKENING OF THE TRANSVERSE COLON. NO BOWEL OBSTRUCTION. NORMAL APPENDIX. ? 3. ??MILD FATTY INFILTRATION OF THE LIVER WITHOUT MASS. ALL OTHER VISUALIZED VISCERAL STRUCTURES ARE WITHIN NORMAL LIMITS. ??NO FREE FLUID OR FREE AIR.. STABLE BILATERAL NONOBSTRUCTING RENAL CALCULI.. CHOLECYSTECTOMY. HYSTERECTOMY. RESOLUTION OF PRIOR RIGHT OVARIAN CYST. GROSSLY NORMAL APPEARANCE TO LEFT OVARY. ? 4. ??STABLE APPEARANCE TO APPROXIMATELY 3.3 X 2.6 CM ENHANCING NODULE ADJACENT TO THE RIGHT ASPECT OF THE VAGINAL POUCH. THIS MAY BE A SMALL REMNANT OF THE UTERUS OR PORTION OF THE CERVIX OR ENDOMETRIAL IMPLANT..ATHEROSCLEROTIC NORMAL-SIZED AORTA. NO PATHOLOGIC LYMPHADENOPATHY. ? 5. ??LUNG BASES WITH STABLE MILD ATELECTASIS VERSUS SCAR. NO EFFUSION.. DEGENERATIVE CHANGE IN LUMBAR SPINE. ? ELECTRONICALLY SIGNED BY Betsy LANDON MD ? Procedure Note , Generic Conversion, MD - 04/26/2018 ABIODUN BUCHANAN ADMIT/SERVICE DATE:12/05/15 ACCT: [id number] DISCHARGE DATE: : 1965 SEX: F ORD SITE: [facility] PT TYPE: REG CLI ORDERING MD: SHAYLEE NUNEZ MD STUDY DATE REPORT # ORDER # [id number] ORDER ID 12/05/15 [id number] PROC CODE: [id number] PROCEDURE DESCRIPTION: CT ABDOMEN PELVIS W IMAGING STUDIES: CT ABDOMEN PELVIS W DATE: 12/05/2015 1:32 PM CLINICAL HISTORY: OTHER - CT, LLQ PAIN . HYSTERECTOMY. CHOLECYSTECTOMY.HISTORY OF LUPUS AND SJOGREN'S SYNDROME. CONCLUSION: 1. ROUTINE CT OF THE ABDOMEN AND PELVIS WITH CONTRAST. COMPARISON OF10/08/2015 IV ADMINISTRATION OF 75 [address]. . RADIATION DOSE REDUCTION TECHNIQUE WASUTILIZED. 2. THERE IS MILD MUCOSAL THICKENING VERSUS DECOMPRESSED STATE OF THEDESCENDING COLON AND INTO THE PROXIMAL SIGMOID COLON. THIS MAY BE DUE TO COLITIS EITHER INFECTIOUSOR INFLAMMATORY. ALSO SOME POSSIBLE MILD MUCOSAL THICKENING OF THE TRANSVERSE COLON. NO BOWELOBSTRUCTION. NORMAL APPENDIX. 3. MILD FATTY INFILTRATION OF THE LIVER WITHOUT MASS. ALL OTHERVISUALIZED VISCERAL STRUCTURES ARE WITHIN NORMAL LIMITS. NO FREE FLUID OR FREE AIR.. STABLE BILATERALNONOBSTRUCTING RENAL CALCULI.. CHOLECYSTECTOMY. HYSTERECTOMY. RESOLUTION OF PRIOR RIGHT OVARIANCYST. GROSSLY NORMAL APPEARANCE TO LEFT OVARY. 4. STABLE APPEARANCE TO APPROXIMATELY 3.3 X 2.6 CM ENHANCING NODULEADJACENT TO THE RIGHT ASPECT OF THE VAGINAL POUCH. THIS MAY BE A SMALL REMNANT OF THE UTERUS OR PORTIONOF THE CERVIX OR ENDOMETRIAL IMPLANT..ATHEROSCLEROTIC NORMAL-SIZED AORTA. NO PATHOLOGICLYMPHADENOPATHY. 5. LUNG BASES WITH STABLE MILD ATELECTASIS VERSUS SCAR. NO EFFUSION..DEGENERATIVE CHANGE IN LUMBAR SPINE. ELECTRONICALLY SIGNED BY Betsy LANDON MD Radha Nunez MD CT Final Result documented in this encounter Visit Diagnoses Not on filedocumented in this encounter
--- OUTSIDE RECORDS SUMMARY | 2024-07-07 16:58 | XMS_ITS | Encounter Summary ---
Author Organization [facility] Address [address] [place] [address]. [place] [address] [place] [address] Care Team Providers Care Combined Rail Operator Name Role Phone Unavailable Primary Care Provider Unavailabl e Encounter Details Date Type Department Care Team (Late st Contact Info) Description 10/22/2013 Abstract [facility] AT [address] [address] , Elfego Morris MD Social History Tobacco [...]
--- OUTSIDE RECORDS SUMMARY | 2024-07-07 16:58 | XMS_ITS | Encounter Summary ---
Author Organization [facility] Address [address] [place] [address]. [place], [place] [address] [place] [address] Care Team Providers Care Marketing Programs Manager Name Role Phone Unavailable Primary Care Provider Unavailabl e Encounter Details Date Type Department Care Team (Late st Contact Info) Description 05/07/2017 Scan [place] [address] , Generic Conversion, Social History Tobacco Use [...]
--- OUTSIDE RECORDS SUMMARY | 2024-07-07 16:58 | XMS_ITS | Encounter Summary ---
Author Organization [facility] Address [facility] [place] [address] [place] [address] Care Team Providers Care Solar Energy Systems Designer Name Role Phone Unavailable Primary Care Provider Unavailabl e Encounter Details Date Type Department Care Team (Late st Contact Info) Description 2014 Abstract [facility] Emergency Room [address] [place] [address] Elie Kaufman MD Social History Tobacco Use [...]
--- OUTSIDE RECORDS SUMMARY | 2024-07-07 16:58 | XMS_ITS | Encounter Summary ---
Author Organization [facility] Address [address] [place] [address]. [place], [place] [address] [place] [address] Care Team Providers Care Vp Marketing Name Role Phone Unavailable Primary Care Provider Unavailabl e Encounter Details Date Type Department Care Team (Late st Contact Info) Description 02/28/2016 Abstract [facility] Emergency Room [address] [place] [address] Debbie Kaur, ULICES Social History Tobacco Use Types Packs/Day Years [...] this encounter Visit Diagnoses Diagnosis Abdominal pain Abdominal pain, unspecified site documented in this encounter
--- OUTSIDE RECORDS SUMMARY | 2024-07-07 16:58 | XMS_ITS | Encounter Summary ---
Author Organization [facility] Address [address] [place] [address]. [place], [place] [address] [place] [address] Care Team Providers Care Optician Name Role Phone Unavailable Primary Care Provider Unavailabl e Encounter Details Date Type Department Care Team (Latest Contact Info) Description 03/28/2014 Abstract [facility] Medical [facility] Social History Tobacco Use Types Packs/Day Years [...]
--- OUTSIDE RECORDS SUMMARY | 2024-07-07 16:58 | XMS_ITS | Encounter Summary ---
Author Organization [facility] Address [address] [place] [address]. [place] [address] [place] [address] Care Team Providers Care Loft Worker Pile Driving Name Role Phone Unavailable Primary Care Provider Unavailabl e Encounter Details Date Type Department Care Team (Late st Contact Info) Description 06/08/2012 Abstract [facility] Emergency Room [address] [place], [place] [id number] Lex Colon MD [address] [id number] Social History Tobacco Use Types Packs/Day Years Used Date Smoking Tobacco: Never Assessed Comments Unknown Sex and Gender Information Value Date Recorded Sex Assigned at Not on file Legal Sex Female 1:10 AM CDT Gender Identity Not on file Sexual Orientation Not on file documented as of this encounter Plan of Treatment Not on file documented as of this encounter Visit Diagnoses Diagnosis Concussion with no loss of consciousness documented in this encounter
--- OUTSIDE RECORDS SUMMARY | 2024-07-07 16:58 | XMS_ITS | Encounter Summary ---
Author Organization [facility] Address [facility] [place] [address] [place] [address] Care Team Providers Care Live In Housekeeper Name Role Phone Unavailable Primary Care Provider Unavailabl e Encounter Details Date Type Department Care Team (Late st Contact Info) Description 11/21/2015 Abstract [facility] [address] [place] [address] Tyrell Nunez MD [address] [place] [address] Social History Tobacco Use Types Packs/Day Years Used Date Smoking Tobacco: Never Assessed Comments Unknown Sex and Gender Information Value Date Recorded Sex Assigned at Not on file Legal Sex Female 1:10 AM CDT Gender Identity Not on file Sexual Orientation Not on file documented as of this encounter Plan of Treatment Not on file documented as of this encounter Visit Diagnoses Diagnosis Melena Blood in stool documented in this encounter
--- OUTSIDE RECORDS SUMMARY | 2024-07-07 16:58 | XMS_ITS | Encounter Summary ---
Author Organization [facility] Address [facility] hospital[facility] [place] [address] [place] [address] Care Team Providers Care Cocoa Press Operator Name Role Phone Unavailable Primary Care Provider Unavailabl e Encounter Details Date Type Department Care Team (Late st Contact Info) Description 01/21/2014 Abstract [facility] Emergency Room [address] [place], [place] [phone] Lex Colon MD [address] [address] Social History Tobacco Use Types Packs/Day Years [...] this encounter Visit Diagnoses Diagnosis Concussion with loss of consciousness Concussion with loss of consciousness of unspecified duration documented in this encounter
--- OUTSIDE RECORDS SUMMARY | 2024-07-07 16:58 | XMS_ITS | Encounter Summary ---
Author Organization [facility] Address [address] [place] [address]. [place] [address] [place] [address] Care Team Providers Care Audiology Director Name Role Phone Unavailable Primary Care Provider Unavailabl e Encounter Details Date Type Department Care Team (Late st Contact Info) Description 08/16/2018 Abstract [facility] Emergency Room [address] [place] [address] Evert Flor MD [address] [place] [id number] Social History Tobacco Use Types Packs/Day Years [...] of this encounter Visit Diagnoses Diagnosis Contusion of right hip Contusion of hip documented in this encounter
--- OUTSIDE RECORDS SUMMARY | 2024-07-07 16:58 | XMS_ITS | Encounter Summary ---
Author Organization [facility] Address [address] [place] [address]. [place], [place] [address] [place] [address] Care Team Providers Care Inspector Aluminum Boat Name Role Phone Unavailable Primary Care Provider Unavailabl e Encounter Details Date Type Department Care Team (Latest Contact Info) Description 06/01/2015 Abstract [facility] Medical Group , Generic Conversion, Social [...] Comments PRV ONLY-RESTING TWELVE LEAD EKG Routine 06/01/2015 3:52 PM FISH STRAIGHTENER documented in this encounter Results * PRV ONLY-RESTING TWELVE LEAD EKG (06/01/2015 3:52 PM FISH STRAIGHTENER) 06/01/2015 3:52 PM FISH STRAIGHTENER 06/01/2015 3:52 PM FISH STRAIGHTENER Narrative [facility] TO EPIC CONVERSION - 06/01/2015 3:54 PM FISH STRAIGHTENER ?? ABIODUN BUCHANAN ORDERING MD: HANG JOSEPH MD ?? ACCT: [id number] ?? ADMIT/SERVICE DATE: 05/31/15 DISCHARGE DATE: 05/31/15 ?? : 1965 PT TYPE: DEP ER ?? SEX: F [facility]D SITE: [facility] ?TEST DATE: ?2015-05-31 ?? PAT NAME: ? ABIODUN ROBEL ?DEPARTMENT: CARD ?? 85 ? ROOM: ? GENDER: ? FEMALE ? SPOT REMOVER: ?? BS ?? : ?1965 ? REQUESTED BY: HANG CORPREW HANG CORPREW ?? ORDER NUMBER: [id number] ?READING MD: ?? BRITTANY GONZALEZ ?MEASUREMENTS ?? INTERVALS ?AXIS ? RATE: ? 87 ? P: ?47 ?? KS: ? 130 ?QRS: ?17 ?? QRSD: ? 82 ? T: ?18 ?? QT: ? 338 ? QTC: ?407 ?INTERPRETIVE STATEMENTS ?? SINUS RHYTHM ?? LOW QRS VOLTAGE IN PRECORDIAL LEADS [QRS DEFLECTION < 1.0 MV IN ?? CHEST LEADS] ?? NONSPECIFIC T-WAVE ABNORMALITY ?? NO PREVIOUS ECG AVAILABLE FOR COMPARISON ?? ELECTRONICALLY SIGNED BY BRITTANY GONZALEZ AT 06-01-15 15:52:53 FISH STRAIGHTENER ? Procedure Note Elfego Nina MD - 04/27/2018 ABIODUN BUCHANAN ORDERING MD: HANG JOSEPH MD ACCT: [id number] ADMIT/SERVICE DATE: 05/31/15 DISCHARGE DATE: 05/31/15 : 1965 PT TYPE: DEP ER SEX: F ORD SITE: [facility] TEST DATE: 2015-05-31 PAT NAME: ABIODUN BUCHANAN DEPARTMENT: CARD 85 ROOM: GENDER: FEMALE SPOT REMOVER: : 1965 REQUESTED BY: HANG JOSEPH ORDER NUMBER: [id number] READING : BRITTANY GONZALEZ MEASUREMENTS INTERVALS AXIS RATE: 87 P: 47 KS: 130 QRS: 17 QRSD: 82 T: 18 QT: 338 QTC: 407 INTERPRETIVE STATEMENTS SINUS RHYTHM LOW QRS VOLTAGE IN PRECORDIAL LEADS [QRS DEFLECTION < 1.0 MV IN CHEST LEADS] NONSPECIFIC T-WAVE ABNORMALITY NO PREVIOUS ECG AVAILABLE FOR COMPARISON ELECTRONICALLY SIGNED BY BRITTANY GONZALEZ AT 06-01-15 15:52:53 FISH STRAIGHTENER us Generic Conversion Md NINA ECHO Final R esult [facility] TO EPIC CONVERSION documented in this encounter Visit Diagnoses Not on filedocumented in this encounter
--- OUTSIDE RECORDS SUMMARY | 2024-07-07 16:58 | XMS_ITS | Encounter Summary ---
Author Organization [facility] Address [address] [place] [address]. [place], [place] [address] [place] [address] Care Team Providers Care Wire Dropper Name Role Phone Unavailable Primary Care Provider Unavailabl e Encounter Details Date Type Department Care Team (Late st Contact Info) Description 06/18/1996 Abstract [place] [address] , Generic Conversion, Social History Tobacco Use [...]
--- OUTSIDE RECORDS SUMMARY | 2024-07-07 16:58 | XMS_ITS | Encounter Summary ---
Author Organization [facility] Address [address] [place] [address]. [place] [address] [place] [address] Care Team Providers Care Outside Sales Professional Name Role Phone Unavailable Primary Care Provider Unavailabl e Encounter Details Date Type Department Care Team (Late st Contact Info) Description 05/31/2015 Abstract [facility] Emergency Room [address] [place] [address] Mike Reynoso Jr., MD [address] [address] Social History Tobacco Use Types Packs/Day Years Used Date Smoking Tobacco: Never Assessed Comments Unknown Sex and Gender Information Value Date Recorded Sex Assigned at Not on file Legal Sex Female 1:10 AM CDT Gender Identity Not on file Sexual Orientation Not on file documented as of this encounter Plan of Treatment Not on file documented as of this encounter Visit Diagnoses Diagnosis Noninfective gastroenteritis and colitis Other and unspecified noninfectious gastroenteritis and colitis documented in this encounter
--- OUTSIDE RECORDS SUMMARY | 2024-07-07 16:58 | XMS_ITS | Encounter Summary ---
Author Organization [facility] Address [address] [place] [address]. [place], [place] [address] [place] [address] Care Team Providers Care Agronomy Research Manager Name Role Phone Unavailable Primary Care Provider Unavailabl e Encounter Details Date Type Department Care Team (Latest Contact Info) Description 09/21/2015 Abstract [facility] Medical Group , Generic Conversion, [...] Comments PRV ONLY-RESTING TWELVE LEAD EKG Routine 09/21/2015 1:12 PM CDT documented in this encounter Results * PRV ONLY-RESTING TWELVE LEAD EKG (09/21/2015 1:12 PM CDT) 09/21/2015 1:12 PM CDT 09/21/2015 1:12 PM CDT Narrative [facility] TO EPIC CONVERSION - 09/21/2015 1:13 PM CDT ?? ABIODUN BUCHANAN ORDERING MD: MAIN KHAN MD ?? ACCT: [id number] ?? ADMIT/SERVICE DATE: 09/20/15 DISCHARGE DATE: 09/20/15 ?? : 1965 PT TYPE: DEP ER ?? SEX: F ORD SITE: [facility] ?TEST DATE: ?2015-09-20 ?? PAT NAME: ? ABIODUN ROBEL ?DEPARTMENT: CARD ?? 85 ? ROOM: ? GENDER: ? FEMALE ? CABLE TECHNICIAN: ?? JM ?? : ?1965 ? REQUESTED BY: MAIN JOAQUINER ?? ORDER NUMBER: [id number] ?READING MD: ?? BRITTANY GONZALEZ ?MEASUREMENTS ?? INTERVALS ?AXIS ? RATE: ? 114 ?P: ?54 ?? KS: ? 131 ?QRS: ?57 ?? QRSD: ? 77 ? T: ?31 ?? QT: ? 364 ? QTC: ?502 ?INTERPRETIVE STATEMENTS ?? SINUS TACHYCARDIA ?? MODERATE ST DEPRESSION [0.05+ MV ST DEPRESSION] ?? COMPARED TO ECG 05/31/2015 18:28:59 ?? ST (T WAVE) DEVIATION NOW PRESENT ?? POOR PROGRESSION OF R WAVE IN PRECORDIAL LEADS,OLD IN? ?? T-WAVE ABNORMALITY NO LONGER PRESENT ?? ELECTRONICALLY SIGNED BY BRITTANY GONZALEZ AT 09-21-15 13:12:35 CDT ? Procedure Note Elfego Nina MD - 04/26/2018 ABIODUN BUCHANAN ORDERING MD: MAIN KHAN MD ACCT: [id number] ADMIT/SERVICE DATE: 09/20/15 DISCHARGE DATE: 09/20/15 : 1965 PT TYPE: DEP ER SEX: F ORD SITE: [facility] TEST DATE: 2015-09-20 PAT NAME: ABIODUN BUCHANAN DEPARTMENT: CARD 85 ROOM: GENDER: FEMALE CABLE TECHNICIAN: : 1965 REQUESTED BY: MAIN KHAN ORDER NUMBER: [id number] READING MD: BRITTANY GONZALEZ MEASUREMENTS INTERVALS AXIS RATE: 114 P: 54 KS: 131 QRS: 57 QRSD: 77 T: 31 QT: 364 QTC: 502 INTERPRETIVE STATEMENTS SINUS TACHYCARDIA MODERATE ST DEPRESSION [0.05+ MV ST DEPRESSION] COMPARED TO ECG 05/31/2015 18:28:59 ST (T WAVE) DEVIATION NOW PRESENT POOR PROGRESSION OF R WAVE IN PRECORDIAL LEADS,OLD IN? T-WAVE ABNORMALITY NO LONGER PRESENT ELECTRONICALLY SIGNED BY BRITTANY GONZALEZ AT 09-21-15 13:12:35 CDT us Generic Conversion Md NINA ECHO Final R esult [facility] TO EPIC CONVERSION documented in this encounter Visit Diagnoses Not on filedocumented in this encounter
--- OUTSIDE RECORDS SUMMARY | 2024-07-07 16:58 | XMS_ITS | Encounter Summary ---
Author Organization [facility] Address [address] [place] [address]. [place], [place] [address] [place] [address] Care Team Providers Care All Round Logger Name Role Phone Unavailable Primary Care Provider Unavailabl e Encounter Details Date Type Department Care Team (Latest Contact Info) Description 09/21/2015 Abstract [facility] Medical Group , Generic Conversion, Social History [...] PRV ONLY-RESTING TWELVE LEAD EKG Routine 09/21/2015 1:09 PM CDT documented in this encounter Results * PRV ONLY-RESTING TWELVE LEAD EKG (09/21/2015 1:09 PM CDT) 09/21/2015 1:09 PM CDT 09/21/2015 1:09 PM CDT Narrative [facility] TO EPIC CONVERSION - 09/21/2015 1:10 PM CDT ?? ABIODUN BUCHANAN ORDERING MD: MAIN KHAN MD ?? ACCT: [id number] ?? ADMIT/SERVICE DATE: 09/20/15 DISCHARGE DATE: 09/20/15 ?? : 1965 PT TYPE: DEP ER ?? SEX: F ORD SITE: [facility] ?TEST DATE: ?2015-09-20 ?? PAT NAME: ? ABIODUN ROBEL ?DEPARTMENT: CARD ?? 85 ? ROOM: ? GENDER: ? FEMALE ? HEEL VARNISHER: ? : ?1965 ? REQUESTED BY: MAIN QUACH MOSKIMMYER ?? ORDER NUMBER: [id number] ?READING MD: ?? BRITTANY GONZALEZ ?MEASUREMENTS ?? INTERVALS ?AXIS ? RATE: ? 103 ?P: ?52 ?? CO: ? 123 ?QRS: ?31 ?? QRSD: ? 90 ? T: ?31 ?? QT: ? 378 ? QTC: ?496 ?INTERPRETIVE STATEMENTS ?? SINUS TACHYCARDIA ?? POSSIBLE LEFT ATRIAL ENLARGEMENT ?? NONSPECIFIC ST ?? T-WAVE ABNORMALITY ?? ABNORMAL RHYTHM ECG ?? COMPARED TO ECG 09/20/2015 11:44:10 ?? T-WAVE ABNORMALITY NOW PRESENT ?? ST (T WAVE) DEVIATION NO LONGER PRESENT ?? ELECTRONICALLY SIGNED BY BRITTANY GONZALEZ AT 09-21-15 13:09:18 CDT ? Procedure Note Elfego Nina MD - 04/26/2018 ABIODUN BUCHANAN ORDERING MD: MAIN KHAN MD ACCT: [id number] ADMIT/SERVICE DATE: 09/20/15 DISCHARGE DATE: 09/20/15 : 1965 PT TYPE: DEP ER SEX: F ORD SITE: [facility] TEST DATE: 2015-09-20 PAT NAME: ABIODUN BUCHANAN DEPARTMENT: CARD 85 ROOM: GENDER: FEMALE HEEL VARNISHER: : 1965 REQUESTED BY: MAIN KHAN ORDER NUMBER: [id number] READING MD: BRITTANY GONZALEZ MEASUREMENTS INTERVALS AXIS RATE: 103 P: 52 CO: 123 QRS: 31 QRSD: 90 T: 31 QT: 378 QTC: 496 INTERPRETIVE STATEMENTS SINUS TACHYCARDIA POSSIBLE LEFT ATRIAL ENLARGEMENT NONSPECIFIC ST T-WAVE ABNORMALITY ABNORMAL RHYTHM ECG COMPARED TO ECG 09/20/2015 11:44:10 T-WAVE ABNORMALITY NOW PRESENT ST (T WAVE) DEVIATION NO LONGER PRESENT ELECTRONICALLY SIGNED BY BRITTANY GONZALEZ AT 09-21-15 13:09:18 CDT us Generic Conversion Md NINA ECHO Final R esult [facility] TO EPIC CONVERSION documented in this encounter Visit Diagnoses Not on filedocumented in this encounter
--- OUTSIDE RECORDS SUMMARY | 2024-07-07 16:58 | XMS_ITS | Encounter Summary ---
Author Organization [facility] Address [facility] [place] [address] [place] [address] Care Team Providers Care Tetryl Dissolver Operator Name Role Phone Unavailable Primary Care Provider Unavailabl e Encounter Details Date Type Department Care Team (Late st Contact Info) Description 10/22/2013 Abstract [facility] Nuclear Medicine [address] [place], [place] [id number] Michael Graf MD [address] [address] Social History Tobacco Use Types Packs/Day Years Used Date Smoking Tobacco: Never Assessed Comments Unknown Sex and Gender Information Value Date Recorded Sex Assigned at Not on file Legal Sex Female 1:10 AM CDT Gender Identity Not on file Sexual Orientation Not on file documented as of this encounter Plan of Treatment Not on file documented as of this encounter Visit Diagnoses Diagnosis Chest pain Chest pain, unspecified documented in this encounter
--- OUTSIDE RECORDS SUMMARY | 2024-07-07 16:58 | XMS_ITS | Encounter Summary ---
Author Organization [facility] Address [address] [place] [address]. [place] [address] [place] [address] Care Team Providers Care Training And Development Manager Name Role Phone Unavailable Primary Care Provider Unavailabl e Encounter Details Date Type Department Care Team (Latest Contact Info) Description 11/21/2015 Abstract [facility] Medical Group Radha Nunez MD [address] [place], [place] [id number] Social History Tobacco Use Types Packs/Day Years Used Date Smoking Tobacco: Never Assessed Comments Unknown Sex and Gender Information Value Date Recorded Sex Assigned at Not on file Legal Sex Female 1:10 AM CDT Gender Identity Not on file Sexual Orientation Not on file documented as of this encounter Procedure Notes * Radha Nunez MD - 11/21/2015 1:35 PM CDT [place] [address] Patient: ABIODUN BUCHANAN [facility] Rec#: [id number] Birthdate: 1965 Admit/Svce Date: 11/21/2015 Disch Date: Attending Md: RADHA NUNEZ MD CHART DOCUMENT OPERATION RECORD DATE OF OPERATION: 11/21/2015 History: 50-year-old female here for evaluation of the colon. She had blood in stool. She also had a prior history of C-diff colitis that was treated elsewhere. Procedure Note: Informed consent obtained earlier. Patient was seen in the OR, placed in the supine lateral decubitus position. Sedation under MAC anesthesia. Rectal exam is negative. CF-190 colonoscope lubricated and inserted into the rectum, advanced all the way to the cecum. Prep was excellent. Cecum was identified by the ileocecal valve and appendiceal orifice. Pictures were taken. Cecal withdrawal time measured. The cecum and the ascending colon were carefully examined several times back and forth and found to be negative. Transverse colon looked normal. Descending, sigmoid and rectum all looked normal endoscopically. Bowel prep was excellent. Findings: 1.Negative colonoscopy to cecum with excellent bowel prep. Nothing but hemorrhoids to explain the blood. Electronically Signed by Radha Nunez MD 11/22/2015 09:01 A PK/misha 11/21/201501:35 P 11/21/2015 02:07 P Job No: [id number] Doc No: [id number] cc: Warren Cowan MD documented in this encounter Plan of Treatment Not on file documented as of this encounter Visit Diagnoses Not on filedocumented in this encounter
--- OUTSIDE RECORDS SUMMARY | 2024-07-07 16:58 | XMS_ITS | Encounter Summary ---
Author Organization [facility] Address [facility] [place] [address] [place] [address] Care Team Providers Care Tearoom Host Name Role Phone Unavailable Primary Care Provider Unavailabl e Encounter Details Date Type Department Care Team (Latest Contact Info) Description 12/05/2015 Abstract [facility] Medical Group Tyrell Nunez MD [address] [place] [address] Social History Tobacco Use Types Packs/Day [...] Procedure Name Priority Date/Time Associated Diagnosis Comments CREATININE WHOLE BLOOD Routine 12/05/2015 12:14 PM CDT documented in this encounter Results * CREATININE WHOLE BLOOD (12/05/2015 12:14 PM CDT) CREATININE WHOLE BLOOD .8 0.6 - 1.2 MG/DL [facility] TO EPIC CONVERSION 12/05/2015 12:1 4 PM CDT 12/05/2015 12:14 PM CDT Narrative [facility] TO EPIC CONVERSION - 12/05/2015 4:22 PM CDT Result Communication: No patient communication needed at this time Tyrell Nunez MD LABORATORY Final Result [facility] TO EPIC CONVERSION documented in this encounter Visit Diagnoses Not on filedocumented in this encounter
--- OUTSIDE RECORDS SUMMARY | 2024-07-07 16:58 | XMS_ITS | Encounter Summary ---
Author Organization [facility] Address [address] [place] [address]. [place] [address] [place] [address] Care Team Providers Care Diesel Crane Operator Name Role Phone Unavailable Primary Care Provider Unavailabl e Encounter Details Date Type Department Care Team (Late st Contact Info) Description 12/24/2009 Abstract [facility] Emergency Room [address] [place], [place] [id number] Mercy Jordan MD [address] [id number] Social History Tobacco Use Types Packs/Day Years [...]
--- OUTSIDE RECORDS SUMMARY | 2024-07-07 16:58 | XMS_ITS | Encounter Summary ---
Author Organization [facility] Address [address] [place] [address]. [place], [place] [address] [place] [address] Care Team Providers Care Bending Machine Set Up Operator Name Role Phone Unavailable Primary Care Provider Unavailabl e Encounter Details Date Type Department Care Team (Late st Contact Info) Description 10/08/2015 Abstract [facility] Emergency Room [address] [place] [address] Social History Tobacco Use Types Packs/Day Years Used Date Smoking Tobacco: Never Assessed Comments Unknown Sex and Gender Information Value Date Recorded Sex Assigned at Not on file Legal Sex Female 1:10 AM CDT Gender Identity Not on file Sexual Orientation Not on file documented as of this encounter Plan of Treatment Not on file documented as of this encounter Visit Diagnoses Diagnosis Constipation Unspecified constipation documented in this encounter
--- OUTSIDE RECORDS SUMMARY | 2024-07-07 16:58 | XMS_ITS | Encounter Summary ---
Author Organization [facility] Address [address] [place] [address]. [place], [place] [address] [place] [address] Care Team Providers Care Circulation Sales Representative Name Role Phone Unavailable Primary Care Provider Unavailabl e Encounter Details Date Type Department Care Team (Late st Contact Info) Description 05/26/2016 Abstract [facility] Emergency Room [address] [place] [address] Elie Kaufman MD Social History Tobacco Use [...] as of this encounter Visit Diagnoses Diagnosis Fever Fever, unspecified documented in this encounter
--- OUTSIDE RECORDS SUMMARY | 2024-07-07 16:58 | XMS_ITS | Encounter Summary ---
Author Organization [facility] Address [address] [place] [address]. [place] [address] [place] [address] Care Team Providers Care Wellness Coach Name Role Phone Unavailable Primary Care Provider Unavailabl e Encounter Details Date Type Department Care Team (Late st Contact Info) Description 08/11/2016 Abstract [facility] [address] [facility], [place] [phone] Idris Cordova MD [address] [place] [address] Social History Tobacco Use Types Packs/Day Years Used Date Smoking Tobacco: Never Assessed Comments Unknown Sex and Gender Information Value Date Recorded Sex Assigned at Not on file Legal Sex Female 1:10 AM CDT Gender Identity Not on file Sexual Orientation Not on file documented as of this encounter Plan of Treatment Not on file documented as of this encounter Visit Diagnoses Diagnosis Calculus of ureter documented in this encounter
--- OUTSIDE RECORDS SUMMARY | 2024-07-07 16:58 | XMS_ITS | Encounter Summary ---
Author Organization [facility] Address [address] [place] [address]. [place], [place] [id number] [place] [id number] Care Team Providers Care Physician In Private Practice Name Role Phone Warren Cowan MD Primary Care Provider [phone] Reason for Referral * Imaging (Emergency) - Closed Specialty Diagnoses / Procedures Referred By Contac t Referred To Contact RADIOLOGY Procedures CT CERV SPINE WO Gloria Shea MD Referral ID Status Reason Start Date Expiration Date Visits Re quested Visits Authorized [id number] Closed 03/20/2019 04/19/2020 1 1 * Imaging (Emergency) - Closed Specialty Diagnoses / Procedures Referred By Contac t Referred To Contact RADIOLOGY Procedures CT HEAD WO Gloria Shea MD Referral ID Status Reason Start Date Expiration Date Visits Re quested Visits Authorized [id number] Closed 03/20/2019 04/19/2020 1 1 Reason for Visit * Reason Comments Syncope Encounter Details Date Type Department Care Team (Late st Contact Info) Description 03/20/2019 9:37 AM CDT - 03/20/2019 3:45 PM CDT Emergency [facility] Emergency Room [address] [place] [address] Gloria Dailey MD Syncope Discharge Disposition: Home or Self Care (Routine [...] oz) 03/20/2019 9:42 A M CDT Height - - Body Mass Index 34.91 02/27/2019 12:17 PM CDT documented in this encounter Discharge Instructions * Discharge Instructions* Gloria Dailey MD - 03/20/2019 2:55 PM CDT Please follow up with your primary care provider. You need to call to schedule an appointment. As discussed, you also need to follow-up with your publisher assistant and your neurologist. Please continue to take your home medications as prescribed. Please return to the emergency department if you develop severe and persistent chest pain, difficulty breathing, dizziness, leg swelling or if you are coughing up blood or for any other concerning symptoms. * Attachments The following attachments cannot be sent through Care Everywhere. * Syncope (Fainting) ([place]oth[place]) documented in this encounter ED Notes * Gloria Dailey MD - 03/20/2019 11:49 AM CDT Chief Complaint Chief Complaint Patient presents with ??? Syncope History of Present Illness 53-year-old female with past medical history of MS, baseline in wheelchair, seizure disorder, and arthritis presenting with syncope. Patient reports she had use the restroom, she stood up to transferto her wheelchair when she felt lightheaded and had spots in her vision. She states she knew she was about to pass out, she tried to grab onto something, but could not. She states she did hit her head, reports loss of consciousness. She states prior to falling she did feel mildly short of breath. Currently she is reporting left hip pain and a mild headache. She denies any chest pain, no current shortness of breath. Medical History ALLERGIES: No Known Allergies MEDICATIONS: Prior to Admission medications Not on File PAST MEDICAL HISTORY: Past Medical History: Diagnosis Date ??? Arthritis ??? Lupus (CMS/HCC) ??? MS (multiple sclerosis) ([facility]) ??? Seizures (CMS/HCC) PAST SURGICAL HISTORY: Past [...] Review of Systems Review of Systems Constitutional: Negative for chills and fatigue. HENT: Negative for rhinorrhea and sore throat. Eyes: Negative for visual disturbance. Respiratory: Negative for cough and shortness of breath. Cardiovascular: Negative for chest pain and palpitations. Gastrointestinal: Negative for abdominal pain, nausea and vomiting. Genitourinary: Negative for dysuria and hematuria. Skin: Negative for rash. Neurological: Positive for headaches. Negative for speech difficulty and weakness. Psychiatric/Behavioral: Negative for agitation. Physical Exam Filed Vitals: 03/20/19 0944 03/20/19 1122 03/20/19 1234 03/20/19 1438 BP: 140/62 154/89 147/84 Pulse: 69 72 70 Resp: 18 18 18 Temp: 99 ??F (37.2 ??C) 98 ??F (36.7 ??C) 98.1 ??F (36.7 ??C) 98.1 ??F (36.7 ??C) TempSrc: Tympanic Tympanic Tympanic SpO2: 96% 94% 95% Weight: Physical Exam Constitutional: She is oriented to person, place, and time. She appears well- developed. No distress. HENT: Head: Atraumatic. No lacerations Eyes: EOM are normal. Pupils are equal, round, and reactive to light. Neck: Neck supple. Cardiovascular: Normal rate and regular rhythm. No murmur heard. Pulmonary/Chest: Effort normal and breath sounds normal. She has no wheezes. Abdominal: Soft. She exhibits no distension. There is no tenderness. Musculoskeletal: She exhibits no deformity. Neurological: She is alert and oriented to person, place, and time. No cranial nerve deficit or sensory deficit. Coordination normal. Upper extremity strength 5/5 bilaterally. Lower extremity strength is 5/5 bilaterally, however patient does have tremors with lifting the left leg off the bed. Skin: Skin is warm and dry. Psychiatric: Her behavior is normal. Nursing note and vitals reviewed. Diagnostic Studies / Procedures ELECTROCARDIOGRAMS: LABORATORY STUDIES: Results for orders placed or performed during the hospital encounter of 03/20/19 CBC W/DIFF AUTOMATED Result Value Ref Range WBC 13.3 (H) 4.4 - 11.0 x10'3/uL RBC 4.90 4.50 - 5.10 x10'6/uL HGB 15.7 (H) 12.3 - 15.3 G/DL HCT 46.7 (H) 35.9 - 44.6 % MCV 95.3 80.0 - 96.0 FL MCH 32.0 (H) 25.3 - 30.9 PG MCHC 33.6 31.0 - 34.1 G/DL RDW 13.7 12.4 - 15.1 % PLT 186 151 - 353 x10'3/uL MPV 12.8 (H) 9.6 - 12.0 FL RBC MORPHOLOGY NORMAL PLT MORPH. NORMAL WBC MORPHOLOGY NORMAL LYMPHOCYTES 13.2 (L) 15.8 - 45.0 % NEUTROPHILS 77.5 (H) 42.1 - 71.9 % MONOCYTES 6.9 5.7 - 12.5 % EOSINOPHILS 1.4 0.0 - 5.6 % BASOPHILS 0.5 0.0 - 1.3 % ABS. NEUTROPHILS TOTAL 10.30 (H) 1.40 - 6.00 x10'3/uL IMMATURE GRANS 0.5 0.0 - 0.5 % ABS. LYMPHOCYTES 1.75 0.80 - 4.70 x10'3/uL COMPREHENSIVE METABOLIC PANEL Result Value Ref Range GLUCOSE 128 (H) 70 - 99 MG/DL BUN 19 (H) 7 - 18 MG/DL CREATININE 0.94 0.55 - 1.02 MG/DL SODIUM 143 136 - 145 MMOL/L POTASSIUM 3.2 (L) 3.5 - 5.1 MMOL/L CHLORIDE 104 100 - 108 MMOL/L CO2 30.3 21 - 32 MMOL/L CALCIUM 8.7 8.5 - 10.1 MG/DL TOTAL BILIRUBIN 0.3 0.2 - 1.2 MG/DL TOTAL PROTEIN 6.8 6.4 - 8.2 G/DL ALBUMIN 3.3 (L) 3.4 - 5.0 G/DL AST 25 15 - 37 U/L ALT 34 14 - 55 U/L ALK PHOS 143 (H) 50 - 136 U/L ANION GAP 8.7 5 - 15 MMOL/L BUN CREATININE RATIO 20.2 6 - 26 A/G RATIO 0.9 (L) 1.0 - 2.0 RATIO eGFR Non-Afr. Amer. 69 (L) >90 ML/MIN/1.73 M2 eGFR Afr. Amer. 80 (L) >90 ML/MIN/1.73 M2 D-DIMER, QUANTITATIVE Result Value Ref Range D-DIMER 289 0.0 - 500.0 D DU ng/mL TROPONIN, QUANT Result Value Ref Range TROPONIN I <0.017 0.000 - 0.056 ng/mL. URINALYSIS, AUTO, COMPLETE Result Value Ref Range COLOR YELLOW TRANSPARENCY HAZY Specific [place] (U) 1.015 1.000 - 1.030 U PH 5.5 5.0 - 9.0 LEUKOCYTE ESTERASE NEGATIVE NEGATIVE NITRITES NEGATIVE NEGATIVE PROTEIN, URINE NEGATIVE NEGATIVE URINE GLUCOSE NEGATIVE NEGATIVE U KETONES NEGATIVE NEGATIVE Urine Bilirubin NEGATIVE NEGATIVE BLOOD TRACE (A) NEGATIVE WBC/HPF 0-5 0 - 5 /HPF RBC/HPF 0-5 0 - 5 /HPF EPI/HPF MANY /HPF CULTURE & SENSITIVITY INDICATED? SPECIMEN SETUP FOR CULTURE BACTERIA (URINE) FEW /HPF TROPONIN, QUANT Result Value Ref Range TROPONIN I <0.017 0.000 - 0.056 ng/mL. IMAGING STUDIES XR HIP LT 2V Final Result by User, [id number] (03/20 1235) IMAGING STUDIES: XR HIP LT 2V DATE: 03/20/2019 12:12 PM COMPARISON STUDIES: No previous available. CLINICAL HISTORY: Left hip pain fall, hip pain FINDINGS AND IMPRESSION: 1. No definitive evidence of acute fracture or dislocation. No destructive or lytic lesions. No radiopaque foreign bodies or abnormal soft tissue calcifications noted. Interpreted By: George Lares, 03/20/2019 12:34 PM XR CHEST PORTABLE Final Result by User, [id number] (03/20 1054) IMAGING STUDIES: XR CHEST PORTABLE EXAM DATE/TIME: 03/20/2019 10:39 AM COMPARISON STUDIES: 05/26/2016. CLINICAL HISTORY: dyspnea . . FINDINGS AND IMPRESSION: CHEST: 1. Cardiomegaly. Mild atherosclerotic aorta. 2. Suboptimal inspiratory effort. Subsegmental atelectasis left lower lobe, crowding the vasculature. 3. No significant pleural effusion, no pneumothorax. 4. No significant bony abnormalities except for mild degenerative changes. 5. Loop recording device in the left hemithorax. Interpreted By: George Lares, 03/20/2019 10:[address] CERV SPINE WO CON Final Result by User, [id number] (03/20 1128) IMAGING STUDIES: CT CERV SPINE WO CON DATE: 03/20/2019 10:47 AM COMPARISON STUDIES: 05/11/2016. CLINICAL HISTORY: Neck trauma, pain. C-spine trauma, NEXUS/CCR negative, low risk TECHNIQUE: Thin axial sections were acquired from the skull base to the thoracic inlet without administration of intravenous contrast. Sagittal and coronal reconstructions were evaluated. Radiation dose reduction technique was utilized. FINDINGS: The cervical vertebral bodies appear well aligned with normal shape and size. Loss of the normal cervical lordosis likely either positional or secondary to muscle spasm. Multilevel mild degenerative disc disease, moderate at C6-C7 Uncovertebral osteophytes and facet arthropathy contribute to create neural foramina narrowing: Right C4-C5, C5-C6, C6-C7; left C3-C4, C6-C7 are the worst levels Bilateral multilevel facet arthropathy worse on the right within the mid cervical spine The posterior elements are intact. No prevertebral soft tissue swelling. Mastoids are clear. Normal relationship between the arch of C1 and the odontoid process. No obvious acute fracture line. Lung apices are clear. Central canal stenosis, C3-C4c5, C5-C6, mild IMPRESSION: 1. No CT signs suggestive of acute fracture or listhesis of the cervical spine. Correlate clinically for any signs or symptoms of ligamentous injury or instability. 2. Multilevel degenerative disc disease and facet disease of the spine, neuroforamina narrowing, mild central canal stenosis. Voice recognition software utilized. Interpreted By: George Lares, 03/20/2019 11:[address] HEAD WO CON Final Result by User, [id number] (03/20 1123) IMAGING STUDIES: CT HEAD WO CON DATE: 03/20/2019 10:47 AM COMPARISON STUDIES: 08/16/2018. CLINICAL HISTORY: Head trauma. Head trauma, minor, GCS>=13, NOC/NEXUS/CCR neg, first study TECHNIQUE: Thin axial sections were acquired from the base to the vertex of the skull. IV contrast was not administered. Radiation dose reduction technique was utilized. FINDINGS: Visualized paranasal sinuses are clear. Mastoids appear well-aerated. No obvious acute depressed skull fracture No obvious intraorbital lesions. . Intracranially, ventricles and cisterns demonstrate normal shape and configuration for the patient's age without evidence of focal lesions No evidence of edema, mass effect, midline shift, extra-axial fluid collection or intracranial bleed. CT signs of acute ischemia might not be visible or obvious during the initial hours. IMPRESSION: 1. No CT signs suggestive of acute intracranial bleed. 2. If an acute infarct is suspected and documentation is needed, or if symptoms persist, consider evaluation with MRI to further characterize. Voice recognition software utilized. Interpreted By: George Lares, 03/20/2019 11:19 AM ED Course / Medical Decision Making Pulse Ox Interpretation: Saturation: 96 Oxygen Delivery: Room air Interpretation: No hypoxia at this time. ?? Rhythm strip interpretation: Rhythm sinus Rate 69 No arrhythmia noted. ?? EC Rhythm: sinus Rate 69 Eliot: normal. WI and QRS intervals: normal ST segments: ST depression noted in V3 and V4. No ST elevation Cannot visualize prior EKG. Repeat EKG @ 1209 Sinus at 69 bpm, axis normal, WI and QRS intervals normal. ST elevation in V3 and V4 still minimally present, but improved. Data reviewed: All current, pertinent and timely studies (laboratory, imaging, and procedures) wereordered and results reviewed by Dr. Dailey unless otherwise noted. Triage notes and available nursing notes reviewed. Previous medical record reviewed when available. Repeat vital signs reviewed. PCP: WARREN COWAN MD MDM/PLAN 53-year-old female presented after a syncopal episode while standing, does sound consistent with vasovagal, however patient reports shortness of breath prior to fall. - ddx: ACS, arrythemia, vasovagal syncope, lower concern for PE, not consistent with previous seizures, no concern for MS exacerbation at this time given patient has baseline neuro exam. - eval with EKG, labs including ddimer and troponin, CTH, CT c spine, Xrays D-dimer negative, labs without emergent abnormality, UA without infection. Mild hypokalemia to 3.2, [address] head without emergent abnormality. CT C-spine with loss of cervical lordosis, this was noted on previous EKG done in February, patient did have c-collar on at that time. However, on reevaluation, patient has full range of motion with only minimal pain noted over the left trapezius muscle in the lateral aspect. Given mild ST depression on EKG, discussed patient with cardiology, spoke with JOSIANE Russo at Dr. Jose Elias Perez's office states patient had a loop recorder placed for multiple syncopal episodes, and never picked up on anything. It is actually been out of service since last April. Patient missed her appointment last week, and is not due to see Dr. Perez until June. I expressed my concern for the mild ST depression on her EKG today, and was curious if this was consistent with previous. She states she will show EKG to Dr. Perez and get back to me. 1450 - spoke with Rafaela, states showed EKGs to Dr. Perez and they are unchanged from 09/05/2017 EKG and02/23/17 EKG. Will see in office as outpatient. I discussed results with patient, as well as need to see Dr. Perez, patient and family at bedside verbalized understanding. I also discussed return precautions need for outpatient follow-up with all of her specialist. Clinical Impression Syncope (Primary) Disposition: Discharge Gloria Dailey MD 03/20/19 1455 * Lynnette Maldonado RN - 03/20/2019 9:44 AM CDT Pt reports feeling heart fluttering and sharp chest pain and then had syncopal episode around 0830. Pt with hx of seizures, and cardiac dysrhythmias. Reports hitting head in shower. Denies chest pain now, but c/o generalized weakness, SOB, and mid back pain. No chest pain at present. documented in this encounter Plan of Treatment Not on file documented as of this encounter Procedures Procedure Name Priority Date/Time Associated Diagnosis Comments TROPONIN, QUANT STAT 03/20/2019 1:03 PM CDT XR HIP LT 2V STAT 03/20/2019 12:36 PM CDT ECG 12-LEAD STAT 03/20/2019 12:09 PM CDT URINE BACTERIA CULTURE Routine 9 11:32 AM CDT URINALYSIS, AUTO, COMPLETE STAT 03/20/2019 11:[address] CERV SPINE WO CON STAT 03/20/2019 11:[address] HEAD WO CON STAT 03/20/2019 11:03 AM CDT XR CHEST PORTABLE STAT 03/20/2019 10: 50 AM CDT COMPREHENSIVE METABOLIC PANEL STAT 03/20/2019 10:00 AM CDT D-DIMER, QUANTITATIVE STAT 03/20/2019 10:00 AM CDT CBC W/DIFF AUTOMATED STAT 03/20/2019 10:00 AM CDT TROPONIN, QUANT STAT 03/20/2019 10:00 AM CDT ECG 12-LEAD STAT 03/20/2019 9:43 AM CDT documented in this encounter Results * TROPONIN, QUANT (03/20/2019 1:03 PM CDT) TROPONIN I <0.017 0.000 - 0.056 ng/mL. 03/20/2019 1:25 PM CDT [facility] Comment: NORMAL: LESS THAN OR EQUAL TO 0.056 NG/ML INDETERMINATE ZONE: 0.056 TO 0.599 NG/ML CONDITIONS RESULTING IN MYOCARDIAL CELL DAMAGE CAN POTENTIALLY INCREASE LEVELS ABOVE THE EXPECTED RANGE. HIGH DOSES OF BIOTIN MAY INTERFERE WITH THIS TEST RESULT. CORRELATION TO CLINICAL HISTORY AND PRESENTATION RECOMMENDED. 03/20/2019 1:03 PM CDT Gloria Dailey MD LABORATORY Final Resul t [facility] [address] [place] [address], * XR HIP LT 2V (03/20/2019 12:36 PM CDT) Anatomical Region Laterality Modality Hip Radiographic Malgorzata ging 03/20/2019 12:3 4 PM CDT Impressions 03/20/2019 12:34 PM CDT FINDINGS AND IMPRESSION: 1. ??No definitive evidence of acute fracture or dislocation. No destructive or lytic lesions. No radiopaque foreign bodies or abnormal soft tissue calcifications noted. ? Interpreted By: George Lares, 03/20/2019 12:34 PM Narrative 03/20/2019 12:34 PM CDT IMAGING STUDIES: ??XR HIP LT 2V ? DATE: ??03/20/2019 12:12 PM COMPARISON STUDIES: No previous available. ?? CLINICAL HISTORY: ??Left hip pain fall, hip pain ? Procedure Note George Lares MD - 03/20/2019 IMAGING STUDIES: XR HIP LT 2V DATE: 03/20/2019 12:12 PM COMPARISON STUDIES: No previous available. CLINICAL HISTORY: Left hip pain fall, hip pain FINDINGS AND IMPRESSION: 1. No definitive evidence of acute fracture or dislocation. Nodestructive or lytic lesions. No radiopaque foreign bodies or abnormal soft tissue calcifications noted. Interpreted By: George Lares, 03/20/2019 12:34 PM us Gloria Dailey MD GENERAL IMAGING Final Resul t * ECG 12 lead (03/20/2019 12:09 PM CDT) 03/20/2019 12:0 9 PM CDT Narrative [facility] ([facility] RAD - 03/20/2019 6:16 PM CDT ?[facility] ? Test Date: ?2019-03-20 Pat Name: ? ALLIE ROBEL ?Department: ? Room: ? [id number] Gender: ? Female ? Cell Reliner: ?? : ?1965 ? Requested By: GLORIA DAILEY Order Number: [id number] ? Reading MD: ?? Hiro Berg ? Measurements Intervals ?Eliot ? Rate: ? 69 ? P: ?58 WI: ? 154 ?QRS: ?8 QRSD: ? 85 ? T: ?56 QT: ? 419 ? QTc: ?450 ? Interpretive Statements SINUS RHYTHM ST DEVIATION AND MODERATE T-WAVE ABNORMALITY, CONSIDER ANTERIOR ISCHEMIA. Compared to ECG 03/20/2019 09:43:52 No significant changes Procedure Note Hiro Berg MD - 03/20/2019 [facility] Test Date: 2019-03-20 Pat Name: ALLIE HUSTON Department: Room: [facility] Gender: Female Cell Reliner: : 1965 Requested By: GLORIA DAILEY Order Number: [id number] Reading MD: Hiro Berg Measurements Intervals Eliot Rate: 69 P: 58 WI: 154 QRS: 8 QRSD: 85 T: 56 QT: 419 QTc: 450 Interpretive Statements SINUS RHYTHM ST DEVIATION AND MODERATE T-WAVE ABNORMALITY, CONSIDER ANTERIORISCHEMIA. Compared to ECG 03/20/2019 09:43:52 No significant changes us Gloria Dailey MD ECG ORDERABLES Final Resul t [facility] ([facility]) RAD * CULTURE URINE (03/20/2019 11:32 AM CDT) SPEC DESCRIPTION URINE CLEAN CATCH 03/20/2019 11:55 AM CDT [facility] SPECIAL REQUESTS NO SPECIAL REQUEST 03/20/2019 11:55 AM CDT [facility] CULTURE RESULT POLYMICROBIAL GROWTH CONSISTENT WITH NORMAL GENITAL JORGITO. ?? SUSCEPTIBILITIES NOT ROUTINELY PERFORMED. 03/22/2019 9:11 AM CDT [facility] URINE SPECIMEN OBTAINED BY CLEAN CATCH PROCEDURE / Unknown 03/20/2019 11:32 AM CDT 03/20/2019 11:54 AM CDT us Gloria Dailey MD MICROBIOLOGY - GENERAL ORDE RABLES Final Result [facility] [address] [place] [address], [place] [phone] [facility] [address] [place] [address], [place] [phone] * (ABNORMAL) URINALYSIS, AUTO, COMPLETE (03/20/2019 11:32 AM CDT) COLOR (U) YELLOW 03/20/2019 11:53 AM CDT [facility] TRANSPARENCY HAZY 03/20/2019 11:53 AM CDT [facility] SPECIFIC GRAVITY (U) 1.015 1.000 - 1.030 03/20/2019 11:53 AM CDT [facility] U PH 5.5 5.0 - 9.0 03/20/2019 11:53 AM CDT [facility] LEUKOCYTES (U) NEGATIVE NEGATIVE 03/20/2019 11:53 AM CDT [facility] NITRITES NEGATIVE NEGATIVE 03/20/2019 11:53 AM CDT [facility] PROTEIN (U) NEGATIVE NEGATIVE 03/20/2019 11:53 AM CDT [facility] URINE GLUCOSE NEGATIVE NEGATIVE 03/20/2019 11:53 AM CDT [facility] KETONES MG/DL (U) NEGATIVE NEGATIVE 03/20/2019 11:53 AM T [facility] BILIRUBIN (U) NEGATIVE NEGATIVE 03/20/2019 11:53 AM CDT [facility] BLOOD (U) TRACE(A) NEGATIVE 03/20/2019 11:53 AM CDT [facility] WBC/HPF 0-5 0 - 5 /HPF 03/20/2019 11:53 AM CDT [facility] RBC/HPF 0-5 0 - 5 /HPF 03/20/2019 11:53 AM CDT [facility] EPI/HPF MANY /HPF 03/20/2019 11:53 AM CDT [facility] CULTURE & SENSITIVITY INDICATED? SPECIMEN SETUP FOR CULTURE 03/20/2019 11:53 AM CDT [facility] BACTERIA (U) FEW /HPF 03/20/2019 11:53 AM CDT [facility] URINE SPECIMEN OBTAINED BY CLEAN CATCH PROCEDURE / Unknown 03/20/2019 11:32 AM CDT us Gloria Dailey MD URINE ORDERABLES Final Resu lt [facility] [address] [place] [address], * CT CERV SPINE WO CON (03/20/2019 11:03 AM CDT) Anatomical Region Laterality Modality Spine Computed Tomogra phy 03/20/2019 11:2 2 AM CDT Impressions 03/20/2019 11:27 AM CDT IMPRESSION: 1. ??No CT signs suggestive of acute fracture or listhesis of the cervical spine. Correlate clinically for any signs or symptoms of ligamentous injury or instability. 2. ??Multilevel degenerative disc disease and facet disease of the spine, neuroforamina narrowing, mild central canal stenosis. Voice recognition software utilized. Interpreted By: George Lares, 03/20/2019 11:22 AM Narrative 03/20/2019 11:27 AM CDT IMAGING STUDIES: ??CT CERV SPINE WO CON ? DATE: ??03/20/2019 10:47 AM COMPARISON STUDIES: 05/11/2016. ?? CLINICAL HISTORY: ??Neck trauma, pain. C-spine trauma, NEXUS/CCR negative, low risk ? TECHNIQUE: ??Thin axial sections were acquired from the skull base to the thoracic inlet without administration of intravenous contrast. ??Sagittal and coronal reconstructions were evaluated. Radiation dose reduction technique was utilized. FINDINGS: The cervical vertebral bodies appear well aligned with normal shape and size. Loss of the normal cervical lordosis likely either positional or secondary to muscle spasm. Multilevel mild degenerative disc disease, moderate at C6-C7 Uncovertebral osteophytes and facet arthropathy contribute to create neural foramina narrowing: Right C4-C5, C5-C6, C6-C7; left C3-C4, C6-C7 are the worst levels Bilateral multilevel facet arthropathy worse on the right within the mid cervical spine The posterior elements are intact. No prevertebral soft tissue swelling. Mastoids are clear. Normal relationship between the arch of C1 and the odontoid process. No obvious acute fracture line. Lung apices are clear. Central canal stenosis, C3-C4c5, C5-C6, mild ? Procedure Note George Lares MD - 03/20/2019 IMAGING STUDIES: CT CERV SPINE WO CON DATE: 03/20/2019 10:47 AM COMPARISON STUDIES: 05/11/2016. CLINICAL HISTORY: Neck trauma, pain. C-spine trauma, NEXUS/CCRnegative, low risk TECHNIQUE: Thin axial sections were acquired from the skull base to the thoracic inlet without administration of intravenous contrast. Sagittal and coronal reconstructions were evaluated. Radiation dose reduction technique was utilized. FINDINGS: The cervical vertebral bodies appear well aligned with normal shape and size. Loss of the normal cervical lordosis likely either positional orsecondary to muscle spasm. Multilevel mild degenerative disc disease, moderate at C6-C7 Uncovertebral osteophytes and facet arthropathy contribute to createneural foramina narrowing: Right C4-C5, C5-C6, C6-C7; left C3-C4, C6-C7 are the worst levels Bilateral multilevel facet arthropathy worse on the right within the mid cervical spine The posterior elements are intact. No prevertebral soft tissue swelling. Mastoids are clear. Normal relationship between the arch of C1 and the odontoid process. No obvious acute fracture line. Lung apices are clear. Central canal stenosis, C3-C4c5, C5-C6, mild IMPRESSION: 1. No CT signs suggestive of acute fracture or listhesis of thecervical spine. Correlate clinically for any signs or symptoms of ligamentousinjury or instability. 2. Multilevel degenerative disc disease and facet disease of the spine, neuroforamina narrowing, mild central canal stenosis. Voice recognition software utilized. Interpreted By: George Lares, 03/20/2019 11:22 AM us Gloria Dailey MD CT Final Resul t * CT HEAD WO CON (03/20/2019 11:03 AM CDT) Anatomical Region Laterality Modality Head Computed Tomogra phy 03/20/2019 11:1 9 AM CDT Impressions 03/20/2019 11:22 AM CDT IMPRESSION: 1. ??No CT signs suggestive of acute intracranial bleed. 2. ??If an acute infarct is suspected and documentation is needed, or if symptoms persist, consider evaluation with MRI to further characterize. ? Voice recognition software utilized. Interpreted By: George Lares, 03/20/2019 11:19 AM Narrative 03/20/2019 11:22 AM CDT IMAGING STUDIES: ??CT HEAD WO CON ? DATE: ??03/20/2019 10:47 AM COMPARISON STUDIES: 08/16/2018. ?? CLINICAL HISTORY: ??Head trauma. Head trauma, minor, GCS>=13, NOC/NEXUS/CCR neg, first study ? TECHNIQUE: Thin axial sections were acquired from the base to the vertex of the skull. IV contrast was not administered. Radiation dose reduction technique was utilized. FINDINGS: Visualized paranasal sinuses are clear. Mastoids appear well-aerated. No obvious acute depressed skull fracture No obvious intraorbital lesions. ?? . Intracranially, ventricles and cisterns demonstrate normal shape and configuration for the patient's age without evidence of focal lesions ? No evidence of edema, mass effect, midline shift, extra-axial fluid collection or intracranial bleed. CT signs of acute ischemia might not be visible or obvious during the initial hours. Procedure Note George Lares MD - 03/20/2019 IMAGING STUDIES: CT HEAD WO CON DATE: 03/20/2019 10:47 AM COMPARISON STUDIES: 08/16/2018. CLINICAL HISTORY: Head trauma. Head trauma, minor, GCS>=13,NOC/NEXUS/CCR neg, first study TECHNIQUE: Thin axial sections were acquired from the base to the vertexof the skull. IV contrast was not administered. Radiation dose reduction technique was utilized. FINDINGS: Visualized paranasal sinuses are clear. Mastoids appear well-aerated. No obvious acute depressed skull fracture No obvious intraorbital lesions. . Intracranially, ventricles and cisterns demonstrate normal shape and configuration for the patient's age without evidence of focal lesions No evidence of edema, mass effect, midline shift, extra-axial fluid collection or intracranial bleed. CT signs of acute ischemia might notbe visible or obvious during the initial hours. IMPRESSION: 1. No CT signs suggestive of acute intracranial bleed. 2. If an acute infarct is suspected and documentation is needed, or if symptoms persist, consider evaluation with MRI to further characterize. Voice recognition software utilized. Interpreted By: George Lares, 03/20/2019 11:19 AM Gloria Dailey MD CT Final Resul t * XR CHEST PORTABLE (03/20/2019 10:50 AM CDT) Anatomical Region Laterality Modality Chest Radiographic Malgorzata ging 03/20/2019 10:5 1 AM CDT Impressions 03/20/2019 10:53 AM CDT FINDINGS AND IMPRESSION: CHEST: 1. ??Cardiomegaly. Mild atherosclerotic aorta. ? 2. ??Suboptimal inspiratory effort. Subsegmental atelectasis left lower lobe, crowding the vasculature. ? 3. ??No significant pleural effusion, no pneumothorax. 4. ??No significant bony abnormalities except for mild degenerative changes. 5. ??Loop recording device in the left hemithorax. Interpreted By: George Lares, 03/20/2019 10:51 AM Narrative 03/20/2019 10:53 AM CDT IMAGING STUDIES: ??XR CHEST PORTABLE ? EXAM DATE/TIME: 03/20/2019 10:39 AM COMPARISON STUDIES: ??05/26/2016. CLINICAL HISTORY: dyspnea ?? . ?. Procedure Note George Lares MD - 03/20/2019 IMAGING STUDIES: XR CHEST PORTABLE EXAM DATE/TIME: 03/20/2019 10:39 AM COMPARISON STUDIES: 05/26/2016. CLINICAL HISTORY: dyspnea . . FINDINGS AND IMPRESSION: CHEST: 1. Cardiomegaly. Mild atherosclerotic aorta. 2. Suboptimal inspiratory effort. Subsegmental atelectasis left lower lobe, crowding the vasculature. 3. No significant pleural effusion, no pneumothorax. 4. No significant bony abnormalities except for mild degenerativechanges. 5. Loop recording device in the left hemithorax. Interpreted By: George Lares, 03/20/2019 10:51 AM us Gloria Dailey MD GENERAL IMAGING Final Resul t * TROPONIN, QUANT (03/20/2019 10:00 AM CDT) TROPONIN I <0.017 0.000 - 0.056 ng/mL. 03/20/2019 10:35 AM CDT [facility] Comment: NORMAL: LESS THAN OR EQUAL TO 0.056 NG/ML INDETERMINATE ZONE: 0.056 TO 0.599 NG/ML CONDITIONS RESULTING IN MYOCARDIAL CELL DAMAGE CAN POTENTIALLY INCREASE LEVELS ABOVE THE EXPECTED RANGE. HIGH DOSES OF BIOTIN MAY INTERFERE WITH THIS TEST RESULT. CORRELATION TO CLINICAL HISTORY AND PRESENTATION RECOMMENDED. 03/20/2019 10:0 0 AM CDT Gloria Dailey MD LABORATORY Final Resul t Performing Organization Address [facility]/ZIP Co de Phone Number [facility] [address] [place] [address], * D-DIMER, QUANTITATIVE (03/20/2019 10:00 AM CDT) D-DIMER 289 0.0 - 500.0 D DU ng/mL 03/20/2019 10:21 AM CDT [facility] 03/20/2019 10:0 0 AM CDT Gloria Dailey MD LABORATORY Final Resul t Performing Organization Address [facility] Co de Phone Number [facility] [address] [place] [address], [place] [phone] * (ABNORMAL) COMPREHENSIVE METABOLIC PANEL (03/20/2019 10:00 AM CDT) GLUCOSE 128(H) 70 - 99 MG/DL 03/20/2019 10:27 AM CDT [facility] BUN 19(H) 7 - 18 MG/DL 03/20/2019 10:27 AM CDT [facility] CREATININE S/P/B 0.94 0.55 - 1.02 MG/DL 03/20/2019 10:27 AM CDT [facility] SODIUM S/P/B 143 136 - 145 MMOL/L 03/20/2019 10:27 AM CDT [facility] POTASSIUM S/P/B 3.2(L) 3.5 - 5.1 MMOL/L 03/20/2019 10:27 AM CDT [facility] CHLORIDE S/P/B 104 100 - 108 MMOL/L 03/20/2019 10:27 AM CDT [facility] CO2 30.3 21 - 32 MMOL/L 03/20/2019 10:27 AM [facility] CALCIUM S/P/B 8.7 8.5 - 10.1 MG/DL 03/20/2019 10:27 AM [facility] BILIRUBIN TOTAL S/P/B 0.3 0.2 - 1.2 MG/DL 03/20/2019 10:27 AM [facility] TOTAL PROTEIN S/P/B 6.8 6.4 - 8.2 G/DL 03/20/2019 10:27 AM [facility] ALBUMIN S/P/B 3.3(L) 3.4 - 5.0 G/DL 03/20/2019 10:27 AM [facility] AST 25 15 - 37 U/L 03/20/2019 10:27 AM [facility] ALT 34 14 - 55 U/L 03/20/2019 10:27 AM [facility] ALKALINE PHOSPHATASE S/P/B 143(H) 50 - 136 U/L 03/20/2019 10:27 AM [facility] ANION GAP 8.7 5 - 15 MMOL/L 03/20/2019 10:27 AM [facility] BUN CREATININE RATIO 20.2 6 - 26 03/20/2019 10:27 AM [facility] A/G RATIO 0.9(L) 1.0 - 2.0 RATIO 03/20/2019 10:27 AM [facility] EGFR NON-AFR. AMER. 69(L) >90 ML/MIN/1.7 3 M2 03/20/2019 10:27 AM [facility] EGFR AFR. AMER. 80(L) >90 ML/MIN/1.7 3 M2 03/20/2019 10:27 AM [facility] Comment: NOTE: eGFR is not calculated for patients <18 years of age. This is an estimated GFR (CKD EPI) and should not be used for calculating drug doses. 03/20/2019 10:0 0 AM CDT us Gloria Dailey MD LABORATORY Final Resul t [facility] [address] [place] [address], * (ABNORMAL) CBC W/DIFF AUTOMATED (03/20/2019 10:00 AM CDT) WBC 13.3(H) 4.4 - 11.0 x10'3/uL 03/20/2019 10:12 AM CDT [facility] RBC 4.90 4.50 - 5.10 x10'6/uL 03/20/2019 10:12 AM CDT [facility] HGB 15.7(H) 12.3 - 15.3 G/DL 03/20/2019 10:12 AM CDT [facility] HCT 46.7(H) 35.9 - 44.6 % 03/20/2019 10:12 AM CDT [facility] MCV 95.3 80.0 - 96.0 FL 03/20/2019 10:12 AM CDT [facility] MCH 32.0(H) 25.3 - 30.9 PG 03/20/2019 10:12 AM CDT [facility] MCHC 33.6 31.0 - 34.1 G/DL 03/20/2019 10:12 AM CDT [facility] RDW 13.7 12.4 - 15.1 % 03/20/2019 10:12 AM CDT [facility] PLT 186 151 - 353 x10'3/uL 03/20/2019 10:12 AM CDT [facility] MPV 12.8(H) 9.6 - 12.0 FL 03/20/2019 10:12 AM CDT [facility] RBC MORPHOLOGY NORMAL 03/20/2019 10:12 AM CDT [facility] PLT MORPH. NORMAL 03/20/2019 10:12 AM CDT [facility] WBC MORPHOLOGY NORMAL 03/20/2019 10:12 AM CDT [facility] LYMPHOCYTES % 13.2(L) 15.8 - 45.0 % 03/20/2019 10:12 AM CDT [facility] NEUTROPHILS % 77.5(H) 42.1 - 71.9 % 03/20/2019 10:12 AM CDT [facility] MONOCYTES % 6.9 5.7 - 12.5 % 03/20/2019 10:12 AM CDT [facility] EOSINOPHILS 1.4 0.0 - 5.6 % 03/20/2019 10:12 AM CDT [facility] BASOPHILS 0.5 0.0 - 1.3 % 03/20/2019 10:12 AM CDT [facility] ABS. NEUTROPHILS TOTAL 10.30(H) 1.40 - 6.00 x10'3/uL 03/20/2019 10:12 AM CDT [facility] IMMATURE GRANS % 0.5 0.0 - 0.5 % 03/20/2019 10:12 AM CDT [facility] ABS. LYMPHOCYTES 1.75 0.80 - 4.70 x10'3/uL 03/20/2019 10:12 AM CDT [facility] 03/20/2019 10:0 0 AM CDT us Gloria Dailey MD LABORATORY Final Resul t [facility] [address] [place] [address], * ECG 12 lead (03/20/2019 9:43 AM CDT) 03/20/2019 9:43 AM CDT Narrative [facility] ([facility]) RAD - 03/20/2019 6:17 PM CDT ?[facility] ? Test Date: ?2019-03-20 Pat Name: ? ALLIE HUSTON ?Department: ? Room: ? TG1TG1 Gender: ? Female ? Cell Reliner: ?? : ?1965 ? Requested By: YUKO KING Order Number: [id number] ? Reading MD: ?? Hiro Berg ? Measurements Intervals ?Eliot ? Rate: ? 69 ? P: ?65 WI: ? 148 ?QRS: ?9 QRSD: ? 101 ?T: ?54 QT: ? 422 ? QTc: ?454 ? Interpretive Statements SINUS RHYTHM ST DEVIATION AND MODERATE T-WAVE ABNORMALITY, CONSIDER ANTERIOR ISCHEMIA ?? Compared to ECG 08/04/2016 16:38:43 T-wave abnormality now present Possible ischemia now present Procedure Note Hiro Berg MD - 03/20/2019 [facility] Test Date: 2019-03-20 Pat Name: ALLIE HUSTON Department: Room: TG11 Gender: Female Cell Reliner: : 1965 Requested By: YUKO KING Order Number: [id number] Devan MD: Hiro Berg Measurements Intervals Eliot Rate: 69 P: 65 WI: 148 QRS: 9 QRSD: 101 T: 54 QT: 422 QTc: 454 Interpretive Statements SINUS RHYTHM ST DEVIATION AND MODERATE T-WAVE ABNORMALITY, CONSIDER ANTERIOR ISCHEMIA Compared to ECG 08/04/2016 16:38:43 T-wave abnormality now present Possible ischemia now present us Yuko JOSHUA ECG ORDERABLES Final Resul t [facility] ([facility]) RAD documented in this encounter Visit Diagnoses Diagnosis Syncope- Primary Syncope and collapse documented in this encounter Administered Medications Inactive Administered Medications - up to 3 most recent administrations Medication Order MAR Action Action Date Dose Rate Site hydrocodone-acetaminophen (NORCO) 5-325 MG tablet 1 tablet 1 tablet, Oral, Once, 1 dose, On Tue03/20/19 at 1115, Maximum dose of acetaminophen is 4000 mg from all sources in 24 hours. Given 03/20/2019 11:21 AM CDT 1 tablet HYDROmorphone (DILAUDID) tablet 1 mg 1 mg, Oral, Once, 1 dose, On Tue03/20/19 at 1330 Given 03/20/2019 1:31 PM CDT 1 mg ondansetron (ZOFRAN) injection 4 mg 4 mg, Intravenous, Once, 1 dose, On Tue03/20/19 at 1115, IV push over 2-5 minutes. Given 03/20/2019 11:21 AM CDT 4 mg potassium chloride CR (KLOR-CON M) tablet 40 mEq 40 mEq, Oral, Once, 1 dose, On Tue03/20/19 at 1245, Do not chew, crush, or suck on tablet. May break in half. May dissolve whole tablet in 120 mL of water and drink immediately. Given 03/20/2019 1:03 PM CDT 40 mEq documented in this encounter Active and Recently Administered Medications Times are shown in CDT. Scheduled Medication Order 03/18/2019 03/19/2019 03/20/2019 hydrocodone-acetaminophen (NORCO) 5-325 MG tablet 1 tablet (COMPLETED) 1 tablet, Oral, Once, 1 dose, On Tue03/20/19 at 1115, Maximum dose of acetaminophen is 4000 mg from all sources in 24 hours. 1121 (Given - Provid er: Giselle Wiseman RN) HYDROmorphone (DILAUDID) tablet 1 mg (COMPLETED) 1 mg, Oral, Once, 1 dose, On Tue03/20/19 at 1330 1331 (Given - Provid er: Giselle Wiseman RN) ondansetron (ZOFRAN) injection 4 mg (COMPLETED) 4 mg, Intravenous, Once, 1 dose, On Tue03/20/19 at 1115, IV push over 2-5 minutes. 1121 (Given - Provid er: Giselle Wiseman RN) potassium chloride CR (KLOR-CON M) tablet 40 mEq (COMPLETED) 40 mEq, Oral, Once, 1 dose, On Tue03/20/19 at 1245, Do not chew, crush, or suck on tablet. May break in half. May dissolve whole tablet in 120 mL of water and drink immediately. 1303 (Given - Provid er: Giselle Wiseman RN) documented in this encounter Care Teams Physician In Private Practice Relationship Specialty Start Date End Date Warren Cowan MD [address] [address] PCP - General FAMILY PRACTICE 02/27/19 documented as of this encounter
--- OUTSIDE RECORDS SUMMARY | 2024-07-07 16:58 | XMS_ITS | Encounter Summary ---
Author Organization [facility] Address [address] [place] [address]. [place], [place] [address] [place] [address] Care Team Providers Care Lumber Trimmer Name Role Phone Unavailable Primary Care Provider Unavailabl e Encounter Details Date Type Department Care Team (Late st Contact Info) Description 02/19/2007 Abstract [facility] Emergency Room [address] [place] [address] Social History Tobacco Use Types [...]
--- OUTSIDE RECORDS SUMMARY | 2024-07-07 16:58 | XMS_ITS | Encounter Summary ---
Author Organization [facility] Address [address] [place] [address]. [place], [place] [address] [place] [address] Care Team Providers Care Cash Grain Farmer Name Role Phone Unavailable Primary Care Provider Unavailabl e Encounter Details Date Type Department Care Team (Latest Contact Info) Description 10/11/2013 Abstract [facility] Medical Group , Generic Alexandra, Social History Tobacco Use Types Packs/Day Years [...] Name Priority Date/Time Associated Diagnosis Comments XR CHEST PORTABLE Routine 10/11/2013 10: 40 AM CDT documented in this encounter Results * XR CHEST PORTABLE (10/11/2013 10:40 AM CDT) Anatomical Region Laterality Modality Chest Radiographic Malgorzata ging 10/11/2013 10:4 0 AM CDT 10/11/2013 10:40 AM CDT Narrative 10/12/2013 3:42 PM CDT ABIODUN BUCHANAN ORDERING MD: HANG JOSEPH MD ?? ACCT: [id number] ?? ADMIT/SERVICE DATE: 10/10/13 DISCHARGE DATE: 10/11/13 ?? : 1965 PT TYPE: DIS IN ?? SEX: F ORD SITE: [facility] ? STUDY DATE REPORT # PROCEDURE CODE PROCEDURE ?? 10/10/13 [id number] XR CHEST 1 VIEW PORTABLE ? EXTORDERID ? [id number] ? CHART DOCUMENT ? DIVISION OF RADIOLOGY ? ACCESSION # ?EXAM DATE ? EXAM DESCRIPTION ?? [id number] ?10/10/2013 ?XR CHEST 1 VIEW PORTABLE ? IMAGING STUDIES: ? CHEST, ONE VIEW, 10-10-2013 ? COMPARISON: ?07-25-2009 ? HISTORY: ? CHEST PAIN ? FINDINGS: ?? LUNGS ARE CLEAR. ?? NORMAL HEART SIZE. ? IMPRESSION:NO EVIDENCE OF ACUTE CARDIOPULMONARY DISEASE. ? ELECTRONICALLY SIGNED BY ?? GENET HALE M.D. 10/12/2013 15:39 ? ANS/DJM ?? 10/11/201310:40 A ?? 10/11/2013 10:43 A ?? JOB NO: ?DOC NO: ??[id number] ?? CC: ? Procedure Note Elfego Nina MD - 04/27/2018 ABIODUN BUCHANAN ORDERING MD: HANG JOSEPH MD ACCT: [id number] ADMIT/SERVICE DATE: 10/10/13 DISCHARGE DATE: 10/11/13 : 1965 PT TYPE: DIS IN SEX: F ORD SITE: [facility] STUDY DATE REPORT # PROCEDURE CODE PROCEDURE 10/10/13 [id number] XR CHEST 1 VIEW PORTABLE EXTORDERID [id number] CHART DOCUMENT DIVISION OF RADIOLOGY ACCESSION # EXAM DATE EXAM DESCRIPTION [id number] 10/10/2013 XR CHEST 1 VIEW PORTABLE IMAGING STUDIES: CHEST, ONE VIEW, 10-10-2013 COMPARISON: 07-25-2009 HISTORY: CHEST PAIN FINDINGS: LUNGS ARE CLEAR. NORMAL HEART SIZE. IMPRESSION:NO EVIDENCE OF ACUTE CARDIOPULMONARY DISEASE. ELECTRONICALLY SIGNED BY GENET HALE M.D. 10/12/2013 15:39 ANS/DJM 10/11/201310:40 A 10/11/2013 10:43 A JOB NO: DOC NO: [id number] CC: us Generic Conversion Md NINA GENERAL IMAGING Final R esult documented in this encounter Visit Diagnoses Not on filedocumented in this encounter
--- OUTSIDE RECORDS SUMMARY | 2024-07-07 16:58 | XMS_ITS | Encounter Summary ---
Author Organization [facility] Address [address] [place] [address]. [place] [address] [place] [address] Care Team Providers Care Hourly Associate Name Role Phone Unavailable Primary Care Provider Unavailabl e Encounter Details Date Type Department Care Team (Late st Contact Info) Description 03/28/[address] [facility] Emergency Room [address] [place], [place] [id number] Mike Lobato MD [address] [address] Social History Tobacco Use Types Packs/Day Years Used Date Smoking Tobacco: Never Assessed Comments Unknown Sex and Gender Information Value Date Recorded Sex Assigned at Not on file Legal Sex Female 1:10 AM CDT Gender Identity Not on file Sexual Orientation Not on file documented as of this encounter Plan of Treatment Not on file documented as of this encounter Visit Diagnoses Diagnosis Disturbance of skin sensation documented in this encounter
--- OUTSIDE RECORDS SUMMARY | 2024-07-07 16:58 | XMS_ITS | Encounter Summary ---
Author Organization [facility] Address [address] [place] [address]. [place], [place] [id number] [place] [address] Care Team Providers Care Motor Assembler Name Role Phone Unavailable Primary Care Provider Unavailabl e Encounter Details Date Type Department Care Team (Latest Contact Info) Description 10/11/2013 Abstract [facility] Medical [facility] , Elfego ConversionMD Social [...] Date/Time Associated Diagnosis Comments CARDIOLOGY GENERIC Routine 10/11/2013 7: 45 AM CDT documented in this encounter Results * CARDIOLOGY GENERIC (10/11/2013 7:45 AM CDT) 10/11/2013 7:45 AM CDT 10/11/2013 7:45 AM CDT Narrative [facility] TO [facility] CONVERSION - 10/16/2013 12:23 PM CDT ?? ABIODUN BUCHANAN ORDERING MD: HANG JOSEPH MD ?? ACCT: [id number] ?? ADMIT/SERVICE DATE: 10/10/13 DISCHARGE DATE: 10/11/13 ?? : 1965 PT TYPE: DIS IN ?? SEX: F ORD SITE: [facility] ? CHART DOCUMENT ?? EKG NO: ??[id number] ?? DATE: ??10/10/2013 ? ORDER #: ??[id number] ?EKG REPORT ? RATE: ??100 ? INTERPRETATION: ?? OH AND QRS WITHIN NORMAL LIMITS. ??NONSPECIFIC T WAVE ABNORMALITIES. T ?? INVERTED IN THE PRECORDIAL ANTEROSEPTAL AREAS. ??CLINICAL CORRELATION ?? NECESSARY. ? ELECTRONICALLY SIGNED BY ?? BRITTANY GONZALEZ MD 10/16/2013 12:21 ?? AA/SP ?? 10/11/2013 7:45 A ?? 10/11/2013 ??8:26 A ?? JOB NO: ?DOC NO: ??[id number] ?? CC: ?BRITTANY GONZALEZ MD ?OTHER COPY ? Procedure Note Elfego Shine MD - 04/26/2018 ABIODUN BUCHANAN MD: HANG JOSEPH MD ACCT: [id number] ADMIT/SERVICE DATE: 10/10/13 DISCHARGE DATE: 10/11/13 : 1965 PT TYPE: DIS IN SEX: F ORD SITE: [facility] CHART DOCUMENT EKG NO: [id number] DATE: 10/10/2013 ORDER #: [id number] EKG REPORT RATE: 100 INTERPRETATION: OH AND QRS WITHIN NORMAL LIMITS. NONSPECIFIC T WAVE ABNORMALITIES. T INVERTED IN THE PRECORDIAL ANTEROSEPTAL AREAS. CLINICAL CORRELATION NECESSARY. ELECTRONICALLY SIGNED BY BRITTANY GONZALEZ MD 10/16/2013 12:21 AA/SP 10/11/2013 7:45 A 10/11/2013 8:26 A JOB NO: DOC NO: [id number] CC: BRITTANY GONZALEZ MD OTHER COPY us Generic Alexandra Shine MD [facility] Final Result [facility] TO [facility] CONVERSION documented in this encounter Visit Diagnoses Not on filedocumented in this encounter
--- OUTSIDE RECORDS SUMMARY | 2024-07-07 16:58 | XMS_ITS | Encounter Summary ---
Author Organization [facility] Address [facility] [facility] [place] [address] [place] [address] Care Team Providers Care Motorboat Mechanic Inboard/Outboard Name Role Phone Unavailable Primary Care Provider Unavailabl e Encounter Details Date Type Department Care Team (Late st Contact Info) Description 06/22/2018 Abstract [facility] [address] [place] [address] Isabel Raman, PARohiniC [address] [place] [address] Social History Tobacco Use Types Packs/Day Years Used Date Smoking Tobacco: Never Assessed Comments Unknown Sex and Gender Information Value Date Recorded Sex Assigned at Not on file Legal Sex Female 1:10 AM CDT Gender Identity Not on file Sexual Orientation Not on file documented as of this encounter Plan of Treatment Not on file documented as of this encounter Visit Diagnoses Diagnosis Unspecified injury of right shoulder and upper arm, initial encounter documented in this encounter
--- OUTSIDE RECORDS SUMMARY | 2024-07-07 17:19 | XMS_ITS | Encounter Summary ---
Author Organization [facility] [employer] [facility] Address [address] [place] [address] Care Team Providers Care Electronic Component Processor Name Role Phone Warren Cowan MD Primary Care Provider +1- [phone] Reason for Visit * Reason Comments Follow Up 3 month F/U * Eval and Treat (Routine) - Closed Specialty Diagnoses / Procedures Referred By Morgan t Referred To Contact Oncology Diagnoses D45 Procedures OFFICE LEVEL VISIT 3-5 Warren Cowan MD [address] [facility] [address] [place] [phone] Aki Guido MD [address] [employer] [address] [place] [phone] Referral ID Status Reason Start Date Expiration Date Visits Re quested Visits Authorized [id number] Closed 07/02/2020 12/29/2020 6 6 Encounter Details Date Type Department Care Team ([facility] Contact Info) Description 11/04/2020 1:45 PM CDT Office Visit [facility] ([facility] Oncology and Hematology - [place] [address] [facility] [address] [place] [address] Aki Guido MD [address] [employer] [address] [place] [address] Erythrocytosis (Primary Dx) Social History Tobacco Use Types Packs/Day Years Used Date Smoking Tobacco: Former Cigarettes 0.3 5 0 11/08/1988 - 11/08/1993 Smokeless Tobacco: Never Alcohol Use Standard Drinks/Week Comments Yes 0 (1 standard drink = 0.6 oz pur e alcohol) Sex and Gender Information Value Date Recorded Sex Assigned at Not on file Gender Identity Not on file Sexual Orientation Not on file Job Start Date Occupation Industry Not on file Not on file Not on file COVID-19 Exposure Response Date Recorded In the last month, have you been in contact with someone who was confirmed or suspected to have Coronavirus / COVID-19? No / Unsure 11/04/2020 1:04 PM CDT documented as of this encounter Last Filed Vital Signs Vital Sign Reading Time Taken Comments Blood Pressure 104/67 11/04/2020 1:52 PM CDT Pulse 62 11/04/2020 1:52 PM CDT Temperature 37 ??C (98.6 ??F) 11/04/2020 1:52 PM CDT Respiratory Rate - - Oxygen Saturation 97% 11/04/2020 1:52 PM CDT Inhaled Oxygen Concentration - - Weight 86.2 kg (190 lb) 11/04/2020 1:52 PM CDT Height 157.5 cm (5' 2 ) 11/04/2020 1:52 PM CDT Body Mass Index 34.75 11/04/2020 1:52 PM CDT documented in this encounter Progress Notes * Aki Guido MD - 11/04/2020 2:10 PM CDT HEMATOLOGY / ONCOLOGY PROGRESS NOTE Patient Identification: Name: Allie Buchanan Age: 55 y.o. 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 SUBJECTIVE Patient came into the office for follow-up visit. She denies any chest pain shortness of breath. Heis trying to lose weight. Denies any bleeding and bruising. No other new complaints. Review of system Constitutional: denies fevers, sweats, fatigue, malaise, weight is stable HEENT: denies sinus congestion, hearing or vision problems Respiratory: denies cough, dyspnea, wheeze Cardiovascular: denies chest pain, exertional chest pressure/discomfort, nausea, syncope, shortnessof breath GI: denies constipation, diarrhea, dsyphagia, reflux symptoms, vomiting, melena : denies dysuria, frequency, incontinence, urgency Integumentary system: no lymphadenopathy, sweats, flushing Musculoskeletal: denies: myalgia, arthralgia Neurological: denies blurry or disturbed vision, numbness/weakness, dizziness Skin: No lumps, bumps or rashes. 12 point review system was reviewed and as above Objective: Vital signs in last 24 hours: As per nursing note Exam: General appearance: alert, cooperative, no distress, appears stated age Head: normocephalic, without obvious abnormality, atraumatic Eyes: conjunctivae/corneas clear, EOM's intact Ears: normal external ear canals AU Nose: Nares normal. Septum midline. Mucosa normal. No drainage or sinus tenderness Throat: Lips, mucosa, and tongue normal. Teeth and gums normal Neck: supple, symmetrical, trachea midline. Lungs: clear to auscultation bilaterally Heart: regular rate and rhythm, S1, S2 normal, no murmur, click, rub or gallop Abdomen: soft, non-tender. Bowel sounds normal. No masses, No organomegaly Extremities: extremities normal, atraumatic, no cyanosis or edema Skin: Skin color, texture, turgor normal. No rashes or lesions Lymph nodes: No lymphadenopathy Neuro: No obvious focal deficit Examination as above PATH LABS Labs from December 13 show WBC 8.0 hemoglobin 15.2 hematocrit 46.9 platelet 234,000 creatinine 1.0 Benedict 2 mutation negative Labs from February 24 show WBC 9.7 hemoglobin 17.2 hematocrit 52 platelet 162,000 Labs from April 28 show WBC 11.6 hemoglobin 15.5 MCV 93 hematocrit 47.6 platelet 261,000 Labs from August 05 showed hematocrit 44.7 Labs from November 04 showed WBC 10.7 hemoglobin 14.4 hematocrit 45.7 platelet 193,000. Assessment: Plan: Patient Active Problem List Diagnosis Date Noted ??? 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 Patient has a history of COPD quit 25 years ago.Patient also has a history of multiple sclerosis. She is moderately obese. Likely etiology for milderythrocytosis is obesity and previous history of COPD. Patient started biweekly phlebotomy and received last phlebotomy on April 28, 2020. Labs noted. No need for phlebotomy today. I will see her back on a 6-month basis with possible phlebotomy. She will continue baby aspirin. Multiple sclerosis. Continue prednisone 5 mg daily. Rheumatoid arthritis. Stable. TOBACCO COUNSELING She is not a tobacco user. 11/04/2020 Aki Guido MD documented in this encounter Plan of Treatment Upcoming Encounters Date Type Department Care Team (Late st Contact Info) Description 06/18/2025 10:00 AM DISPENSER OPERATOR Office Visit [facility] Oncology and Hematology - [place] [address] [facility] [address] [place] [address] Aki Guido MD [address] [facility] [address] [place] [address] Scheduled Orders Name Type Priority Associated Diagnoses Orde r Schedule CBC WITH DIFFERENTIAL Lab Routine Erythrocytosis Expected: 05/05/2021, Expires: 11/04/2021 documented as of this encounter Visit Diagnoses Diagnosis Erythrocytosis- Primary Reserved for inherently not codable concepts WITHOUT codable children documented in this encounter Care Teams Electronic Component Processor Relationship Specialty Start Date End Date Warren Cowan MD [address] [facility] [address] [place] [phone] PCP - General Family Practice 11/01/19 documented as of this encounter
--- OUTSIDE RECORDS SUMMARY | 2024-07-07 17:19 | XMS_ITS | Encounter Summary ---
Author Organization [facility] [employer] [facility] Address [address] [place] [address] Care Team Providers Care Plate Developer Name Role Phone Warren Cowan MD Primary Care Provider +1- [phone] Reason for Visit * Reason Comments Follow Up Encounter Details Date Type Department Care Team (Late st Contact Info) Description 09/22/2023 1:00 PM CDT Office Visit [facility] Oncology and Hematology - [place] [address] [facility] [address] [place] [address] Aki Guido MD [address] [facility] [address] [place] [address] Erythrocytosis (Primary Dx) Social History Tobacco [...] file Not on file Not on file documented as of this encounter Last Filed Vital Signs Vital Sign Reading Time Taken Comments Blood Pressure 106/64 09/22/2023 1:10 PM CDT Pulse 60 09/22/2023 1:10 PM CDT Temperature 35.8 ??C (96.5 ??F) 09/22/2023 1:10 PM CD T Respiratory Rate 14 09/22/2023 1:10 PM CDT Oxygen Saturation 98% 09/22/2023 1:10 PM CDT Inhaled Oxygen Concentration - - Weight - - Height - - Body Mass Index - - documented in this encounter Progress Notes * Aki Guido MD - 09/22/2023 1:48 PM CDT HEMATOLOGY / ONCOLOGY PROGRESS NOTE Patient Identification: Name: Allie Buchanan Age: 58 y.o. 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 SUBJECTIVE Patient came to the office for follow-up visit. She denies any chest pain and shortness of breath. Complain of right knee pain. No bleeding and bruising. No other new complaints. Review of system Constitutional: denies fevers, sweats, fatigue, malaise, weight and appetite stable. HEENT: denies sinus congestion, hearing or vision problems Respiratory: denies cough, dyspnea, wheeze Cardiovascular: denies chest pain, exertional chest pressure/discomfort, nausea, syncope, shortnessof breath GI: denies constipation, diarrhea, dsyphagia, reflux symptoms, vomiting, melena : denies dysuria, frequency, incontinence, urgency Integumentary system: no lymphadenopathy, sweats, flushing Musculoskeletal: denies: myalgia, complain of right knee arthralgia Neurological: denies blurry or disturbed vision, numbness/weakness, dizziness Skin: No lumps, bumps or rashes. Denies any itching 12 point review of system was reviewed Objective: Vital signs in last 24 hours: [...] Extremities: extremities normal, atraumatic, no cyanosis or edema, Skin: Skin color, texture, turgor normal. No rashes or lesions Lymph nodes: No lymphadenopathy Neuro: No obvious focal deficit Exam as above PATH LABS Labs from December [...] 10.7 hemoglobin 14.4 hematocrit 45.7 platelet 193,000. 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 Patient has a history of COPD quit 25 years ago. Patient also has a history of multiple sclerosis. She is moderately obese. Likely etiology for mild erythrocytosis is obesity and previous history of COPD. Patient started biweekly phlebotomy and received last phlebotomy on April 28, 2020. Labs noted. Hematocrit 47.4. No need for phlebotomy. Continue baby aspirin. I will see her back in 9 months. Rheumatoid arthritis. Stable on methotrexate. Multiple sclerosis. Stable on methylprednisolone. Follow-up in 9 months. TOBACCO COUNSELING She is not a tobacco/nicotine user. 09/22/2023 Aki Guido MD documented in this encounter Plan of Treatment Upcoming Encounters Date Type Department Care Team (Late st Contact Info) Description 06/18/2025 10:00 AM JAVA DEVELOPER ARCHITECT Office Visit [facility] Oncology and Hematology - [place] [address] [facility] [address] [place] [address] Aki Guido MD [address] [facility] [address] [place] [phone] Scheduled Orders Name Type Priority Associated Diagnoses Orde r Schedule CBC WITH DIFFERENTIAL Lab Stat Erythrocytosis Expected: 06/23/2024, Expires: 09/21/2024 BASIC METABOLIC PANEL Lab Stat Erythrocytosis Expected: 06/23/2024, Expires: 09/21/2024 documented as of this encounter Visit Diagnoses Diagnosis Erythrocytosis- Primary Reserved for inherently not codable concepts WITHOUT codable children documented in this encounter Care Teams Plate Developer Relationship Specialty Start Date End Date Warren Cowan MD [address] [phone] PCP - General Family Practice 11/01/19 documented as of this encounter
--- OUTSIDE RECORDS SUMMARY | 2024-07-07 17:19 | XMS_ITS | Encounter Summary ---
Author Organization [facility] Address [address] [facility] Attn: Epic Prelude ADT CRICKET AMAYA [address] Care Team Providers Care Store Person Name Role Phone Warren Cowan MD Primary Care Provider +1- [phone] Encounter Details Date Type Department Care Team (Latest Contact Info) Description 08/05/2020 Travel Social History Tobacco Use Types Packs/Day Years [...] have Coronavirus / COVID-19? No / Unsure 08/05/2020 1:45 PM TABULATING CLERK documented as of this encounter Plan of Treatment Upcoming Encounters Date Type Department Care Team (Late st Contact Info) Description 06/18/2025 10:00 AM TABULATING CLERK Office Visit [facility] Oncology and Hematology - [place] [address] [facility] 200 [place] [address] Aki Guiod MD [address] [facility] [address] [place] [address] documented as of this encounter Visit Diagnoses Not on filedocumented in this encounter Care Teams Store Person Relationship Specialty Start Date End Date Warren Cowan MD [address] [phone] PCP - General Family Practice 11/01/19 documented as of this encounter
--- OUTSIDE RECORDS SUMMARY | 2024-07-07 17:19 | XMS_ITS | Encounter Summary ---
Author Organization [facility] Address [address] [place] [address] Care Team Providers Care Business Systems Advisor Name Role Phone Warren Cowan MD Primary Care Provider +1- [phone] Encounter Details Date Type Department Care Team (Late Contact Info) Description 01/17/2024 External Device Data STL ABSTRACTION Provider, Abstract NO ADDRESS ON FILE Social History Tobacco Use Types Packs/Day Years [...] st Contact Info) Description 06/18/2025 10:00 AM RESTRICTIVE PREPARATION OPERATOR Office Visit [facility] Oncology and Hematology - [place] [address] [facility] [address] [place] [address] Aki Guido MD [address] [facility] [address] [place] [address] documented as of this encounter Visit Diagnoses Not on filedocumented in this encounter Care Teams Business Systems Advisor Relationship Specialty Start Date End Date Warren Cowan MD [address] [facility] [address] [place] [address] PCP - General Family Practice 11/01/19 documented as of this encounter
--- OUTSIDE RECORDS SUMMARY | 2024-07-07 17:19 | XMS_ITS | Encounter Summary ---
Author Organization [facility] [employer] [facility] Address [address] [place] [address] Care Team Providers Care Negotiator Name Role Phone Warren Cowan MD Primary Care Provider +1- [phone] Reason for Visit * Reason Comments Follow Up F/U with Phlebotomy * Eval and Treat (Routine) - Closed Specialty Diagnoses / Procedures Referred By Morgan t Referred To Contact Oncology Diagnoses D45 Procedures OFFICE LEVEL VISIT 3-5 Warren Cowan MD [address] [facility] [address] [place] [phone] Aki Guido MD [address] [employer] [address] [place] [phone] Referral ID Status Reason Start Date Expiration Date Visits Re quested Visits Authorized [id number] Closed 07/02/2020 12/29/2020 6 6 Encounter Details Date Type Department Care Team ([facility] st Contact Info) Description 08/05/2020 2:00 PM CARGO MATE Office Visit [facility] Oncology and Hematology - [place] [address] [facility] [facility] [address] [place] [address] Aki Guido MD [address] [employer] [address] [place] [phone] Erythrocytosis (Primary Dx) Social History Tobacco [...] COVID-19? No / Unsure 08/05/2020 1:45 PM CARGO MATE documented as of this encounter Last Filed Vital Signs Vital Sign Reading Time Taken Comments Blood Pressure 131/80 08/05/2020 2:05 PM CARGO MATE Pulse 67 08/05/2020 2:05 PM CARGO MATE Temperature 36.3 ??C (97.4 ??F) 08/05/2020 2:05 PM CS T Respiratory Rate - - Oxygen Saturation 96% 08/05/2020 2:05 PM CARGO MATE Inhaled Oxygen Concentration - - Weight - - Height 157.5 cm (5' 2 ) 08/05/2020 2:05 PM CARGO MATE Body Mass Index - - documented in this encounter Progress Notes * Aki Guido MD - 08/05/2020 2:34 PM CST HEMATOLOGY / ONCOLOGY PROGRESS NOTE Patient Identification: Name: Allie Buchanan Age: 55 y.o. 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 SUBJECTIVE Patient came into the office for follow-up visit. She denies any chest pain and shortness of breath. Weight and appetite stable. No bleeding and bruising. No other new complaints. Review of system Constitutional: denies fevers, sweats, fatigue, malaise, weight is stable, improvement in itching. HEENT: denies sinus congestion, hearing or vision [...] lumps, bumps or rashes. 12 point review systems reviewed and as above Objective: Vital signs [...] Labs from August 05 showed hematocrit 44.7 Assessment: Plan: Patient Active Problem List Diagnosis [...] 28, 2020. Labs noted. No need for phlebotomy. I will change phlebotomy to every 3 months basis. She will continue baby aspirin. I will see her back in 3 months. Multiple sclerosis. Continue prednisone 5 mg daily. Rheumatoid arthritis. Stable. TOBACCO COUNSELING She is not a tobacco user. 08/05/2020 Aki Guido MD O MATE documented in this encounter Plan of Treatment Upcoming Encounters Date Type Department Care Team (Late st Contact Info) Description 06/18/2025 10:00 AM CARGO MATE Office Visit [facility] Oncology and Hematology - [place] [address] [facility] [address] [place] [address] Aki Guido MD [address] [facility] [address] [place] [address] documented as of this encounter Visit Diagnoses Diagnosis Erythrocytosis- Primary Reserved for inherently not codable concepts WITHOUT codable children documented in this encounter Care Teams Negotiator Relationship Specialty Start Date End Date Warren Cowan MD [address] [facility] [address] [place] [phone] PCP - General Family Practice 11/01/19 documented as of this encounter
--- OUTSIDE RECORDS SUMMARY | 2024-07-07 17:19 | XMS_ITS | Encounter Summary ---
Author Organization [facility] [employer] [facility] Address [address] [place] [address] Care Team Providers Care Seal Mixing Operator Name Role Phone Warren Cowan MD Primary Care Provider +1- [phone] Reason for Visit * Reason Comments Follow Up Encounter Details Date Type Department Care Team (Late st Contact Info) Description 12/22/2022 2:45 PM CDT Office Visit [facility]3] Oncology and Hematology - [place] [address] [facility] [address] [place] [address] Aki Guido MD [address] [facility] [address] [place] [address] Erythrocytosis (Primary Dx) Social History [...] Sign Reading Time Taken Comments Blood Pressure 127/71 12/22/2022 2:30 PM CDT Pulse 60 12/22/2022 2:30 PM CDT Temperature 36.2 ??C (97.1 ??F) 12/22/2022 2:30 PM CD T Respiratory Rate 10 12/22/2022 2:30 PM CDT Oxygen Saturation 99% 12/22/2022 2:30 PM CDT Inhaled Oxygen Concentration - - Weight 94.3 kg (208 lb) 12/22/2022 2:30 PM CDT Height - - Body Mass Index 38.04 11/03/2021 3:41 PM CDT documented in this encounter Progress Notes * Aki Guido MD - 12/22/2022 2:56 PM CDT HEMATOLOGY / ONCOLOGY PROGRESS NOTE Patient Identification: Name: Allie Buchanan Age: 57 y.o. 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 SUBJECTIVE Patient came to the office for follow-up visit. She denies any chest pain or shortness of breath. Denies any bleeding and bruising. Weight and appetite stable. No other new complaints. Review of system [...] extremities normal, atraumatic, no cyanosis or edema, stable generalized arthralgia Skin: Skin color, texture, turgor normal. No [...] 14.9 hematocrit 44.4 platelet 196,000 creatinine 1.0 Assessment: Plan: Patient Active Problem [...] on April 28, 2020. Labs noted. Hematocrit stable at 44.4. No need for phlebotomy. Continue baby aspirin. We will move next appointment to 9 months. Rheumatoid arthritis. Stable on methotrexate. Multiple sclerosis. Stable on prednisone. Follow-up in 9 months. 12/22/2022 Aki Guido MD documented in this encounter Plan of Treatment Upcoming Encounters Date Type Department Care Team (Late st Contact Info) Description 06/18/2025 10:00 AM STEEL LAYER Office Visit [facility]3] Oncology and Hematology - [place] [address] [facility] [address] [address] Aki Guido MD [address] [facility] [address] [place] [address] documented as of this encounter Visit Diagnoses Diagnosis Erythrocytosis- Primary Reserved for inherently not codable concepts WITHOUT codable children documented in this encounter Care Teams Seal Mixing Operator Relationship Specialty Start Date End Date Warren Cowan MD [address] [facility] [address] [place] [phone] PCP - General Family Practice 11/01/19 documented as of this encounter
--- OUTSIDE RECORDS SUMMARY | 2024-07-07 17:19 | XMS_ITS | Encounter Summary ---
Author Organization [facility] [employer] [facility] Address [address] [place] [address] Care Team Providers Care Air Traffic Control Specialist Name Role Phone Warren Cowan MD Primary Care Provider +1- [phone] Reason for Visit * Reason Comments Follow Up 2 month f/u with lab s * Eval and Treat (Routine) - Closed Specialty Diagnoses / Procedures Referred By Contac t Referred To Contact Diagnoses d45 Procedures OFFICE VISIT LEVEL 3-5 Warren Cowan MD [address] [address] Aki Guido MD [email or web address] [address] Referral ID Status Reason Start Date Expiration Date Visits Re quested Visits Authorized [id number] Closed 11/06/2019 05/04/2020 6 6 Encounter Details Date Type Department Care Team ([facility] st Contact Info) Description 04/29/2020 3:45 PM CDT Office Visit [facility] Oncology and Hematology - [place] [address] [facility] [address] [place] [address] Aki Guido MD [email or web address] [address] Erythrocytosis (Primary Dx) Social History Tobacco [...] have Coronavirus / COVID-19? No / Unsure 04/29/2020 3:33 PM CDT documented as of this encounter Last Filed Vital Signs Vital Sign Reading Time Taken Comments Blood Pressure 103/70 04/29/2020 3:55 PM CDT Pulse 76 04/29/2020 3:55 PM CDT Temperature 37.2 ??C (98.9 ??F) 04/29/2020 3:55 PM CD T Respiratory Rate - - Oxygen Saturation 96% 04/29/2020 3:55 PM CDT Inhaled Oxygen Concentration - - Weight 88.9 kg (196 lb) 04/29/2020 3:55 PM CDT Height 157.5 cm (5' 2 ) 04/29/2020 3:55 PM CDT Body Mass Index 35.85 04/29/2020 3:55 PM CDT documented in this encounter Progress Notes * Aki Guido MD - 04/29/2020 4:12 PM CDT HEMATOLOGY / ONCOLOGY PROGRESS NOTE Patient Identification: Name: Allie Buchanan Age: 54 y.o. 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 SUBJECTIVE Patient came into the office for follow-up visit. She is feeling much better and stronger after having phlebotomies done. Her last phlebotomy was on April 28. Itching is improved. Denies any other new complaints. Review of system Constitutional: [...] 15.5 MCV 93 hematocrit 47.6 platelet 261,000 Assessment: Plan: Patient Active Problem List Diagnosis [...] phlebotomy on April 28, 2020. Labs noted. I will change phlebotomy to monthly basis. She is clinically feeling better with phlebotomy with improvement in itching. She will continue baby aspirin. I will see her back in 3 months. Multiple sclerosis. Patient is on prednisone 5 mg daily. Rheumatoid arthritis. Stable. TOBACCO COUNSELING She is not a tobacco user. 04/29/2020 Aki Guido MD documented in this encounter Plan of Treatment Upcoming Encounters Date Type Department Care Team ([facility] st Contact Info) Description 06/18/2025 10:00 AM STRAWHAT BLOCKING OPERATOR Office Visit [facility] Oncology and Hematology - [place] [address] [facility] 200 [place] [address] Aki Guido MD 2[address] [facility] [address] [place] [address] documented as of this encounter Visit Diagnoses Diagnosis Erythrocytosis- Primary Reserved for inherently not codable concepts WITHOUT codable children documented in this encounter Care Teams Air Traffic Control Specialist Relationship Specialty Start Date End Date Warren Cowan MD 531 [facility] [address] [place] [phone] PCP - General Family Practice 11/01/19 documented as of this encounter
--- OUTSIDE RECORDS SUMMARY | 2024-07-07 17:19 | XMS_ITS | Encounter Summary ---
Author Organization [facility] [employer] [facility] Address [address] [place] [address] Care Team Providers Care Podiatric Surgeon Name Role Phone Warren Cowan MD Primary Care Provider +1- [phone] Reason for Visit * Reason Comments Follow Up 6wk w/labs * Eval and Treat (Routine) - Closed Specialty Diagnoses / Procedures Referred By Morgan palma Referred To Contact Diagnoses d45 Procedures OFFICE VISIT LEVEL 3-5 Warren Cowan MD [address] [address] Aki Guido MD [address] [address] Referral ID Status Reason Start Date Expiration Date Visits Re quested Visits Authorized [id number] Closed 11/06/2019 05/04/2020 6 6 Encounter Details Date Type Department Care Team ([facility] Contact Info) Description 12/21/2019 10:15 AM CDT Office Visit [facility] Oncology and Hematology - [place] [address] [facility] 200 [place] [address] Aki Guido MD [address] [place] [address] Erythrocytosis (Primary Dx) Social History [...] have Coronavirus / COVID-19? No / Unsure 12/21/2019 9:52 AM CDT documented as of this encounter Last Filed Vital Signs Vital Sign Reading Time Taken Comments Blood Pressure 135/70 12/21/2019 9:55 AM CDT Pulse 63 12/21/2019 9:55 AM CDT Temperature 36.6 ??C (97.8 ??F) 12/21/2019 9:55 AM CD T Respiratory Rate - - Oxygen Saturation 97% 12/21/2019 9:55 AM CDT Inhaled Oxygen Concentration - - Weight 92.1 kg (203 lb) 12/21/2019 9:55 AM CDT Height 157.5 cm (5' 2 ) 12/21/2019 9:55 AM CDT Body Mass Index 37.13 12/21/2019 9:55 AM CDT documented in this encounter Progress Notes * Aki Guido MD - 12/21/2019 10:30 AM CDT HEMATOLOGY / ONCOLOGY PROGRESS NOTE Patient Identification: Name: Allie Buchanan Age: 54 y.o. 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 She denies any chest pain and shortness of breath. Weight and appetite are stable. Arthritis pain is under control. No other new complaint. Review of system Constitutional: denies fevers, sweats, fatigue, malaise, weight loss HEENT: denies sinus congestion, hearing or vision problems Respiratory: denies cough, dyspnea, wheeze Cardiovascular: denies chest pain, exertional chest pressure/discomfort, nausea, syncope, shortnessof breath GI: denies constipation, diarrhea, dsyphagia, reflux symptoms, vomiting, melena : denies dysuria, frequency, incontinence, urgency Integumentary system: no lymphadenopathy, sweats, flushing Musculoskeletal: denies: myalgia, arthralgia Neurological: denies blurry or disturbed vision, numbness/weakness, dizziness Skin: No lumps, bumps or rashes. Objective: Vital signs in last 24 hours: [...] No lymphadenopathy Neuro: No obvious focal deficit PATH LABS Labs from December 13 show WBC 8.0 hemoglobin 15.2 hematocrit 46.9 platelet 234,000 creatinine 1.0 Benedict 2 mutation negative @IMAGEIMP@ Assessment: Plan: There are no active problems to display for this patient. 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 Patient has a history of COPD quit 25 years ago.Patient also has a history of multiple sclerosis. She is moderately obese. Likely etiology for milderythrocytosis is obesity and previous history of COPD. She will continue baby aspirin. I will see her back in 2 months to see labs and possible phlebotomy. Multiple sclerosis. Patient is on a steroid and under the care of Dr. Acosta. Rheumatoid arthritis. Stable. ? TOBACCO COUNSELING She is not a tobacco user. 12/21/2019 Aki Guido MD documented in this encounter Plan of Treatment Upcoming Encounters Date Type Department Care Team (Late st Contact Info) Description 06/18/2025 10:00 AM NUCLEAR MEDICINE SPECIALIST Office Visit [facility] Oncology and Hematology [facility] [address] [place] [phone] Aki Guido MD [address] [facility] [address] [place] [address] documented as of this encounter Results * CBC WITH DIFFERENTIAL (02/22/2020) Blood Aki Guido MD HEMATOLOGY ORDERABLE S [facility] documented in this encounter Visit Diagnoses Diagnosis Erythrocytosis- Primary Reserved for inherently not codable concepts WITHOUT codable children documented in this encounter Care Teams Podiatric Surgeon Relationship Specialty Start Date End Date Warren Cowan MD [address] [place] [phone] PCP - General Family Practice 11/01/19 documented as of this encounter
--- OUTSIDE RECORDS SUMMARY | 2024-07-07 17:19 | XMS_ITS | Encounter Summary ---
Author Organization [facility] [employer] Address [address] [place] [address] Care Team Providers Care Parking Lot Manager Name Role Phone Warren Cowan MD Primary Care Provider +1- [phone] Encounter Details Date Type Department Care Team (Late Contact Info) Description 02/12/2020 Orders Only [facility] Oncology [facility] Hematology [facility] [address] [place] [address] Nemo Price RN Erythrocytosis Social History Tobacco Use Types Packs/Day Years [...] Encounters Date Type Department Care Team (Late Contact Info) Description 06/18/2025 10:00 AM GENERAL OFFICE WORKER Office Visit [facility] Oncology and Hematology [facility] [address] [place] [address] Aki Guido MD [address] [facility] [address] [place] [address] documented as of this encounter Procedures Procedure Name Priority Date/Time Associated Diagnosis Comments CBC WITH DIFFERENTIAL Routine 02/22/2020 Erythrocytosis documented in this encounter Results * CBC WITH DIFFERENTIAL (02/22/2020) Blood Aki Guido MD HEMATOLOGY ORDERABLE S NON [facility] documented in this encounter Visit Diagnoses Diagnosis Erythrocytosis Reserved for inherently not codable concepts WITHOUT codable children documented in this encounter Care Teams Parking Lot Manager Relationship Specialty Start Date End Date Warren Cowan MD [address] [place] [address] PCP - General Family Practice 11/01/19 documented as of this encounter
--- OUTSIDE RECORDS SUMMARY | 2024-07-07 17:19 | XMS_ITS | Encounter Summary ---
Author Organization [facility] Address [address] [place] [address] Care Team Providers Care Motor Vehicles Inspector Name Role Phone Warren Cowan MD Primary Care Provider +1- [phone] Encounter Details Date Type Department Care Team (Late Contact Info) Description 12/20/2023 External Device Data STL ABSTRACTION Provider, Abstract [...] st Contact Info) Description 06/18/2025 10:00 AM IMAGING SPECIALIST Office Visit [facility] Oncology and Hematology - [place] 2[address] [facility] 200 [place] [address] Aki Guido MD [address] [facility] [address] [place] [address] documented as of this encounter Visit Diagnoses Not on filedocumented in this encounter Care Teams Motor Vehicles Inspector Relationship Specialty Start Date End Date Warren Cowan MD 531 [facility] [address] [place] [address] PCP - General Family Practice 11/01/19 documented as of this encounter
--- OUTSIDE RECORDS SUMMARY | 2024-07-07 17:19 | XMS_ITS | Encounter Summary ---
Author Organization [facility] [employer] Address [address] [place] [address] Care Team Providers Care Baccarat Manager Name Role Phone Warren Cowan MD Primary Care Provider +1- [phone] Reason for Visit * Reason Onset Date Comments Needs Orders Written 12/12/2019 Encounter Details Date Type Department Care Team (Late Contact Info) Description 12/12/2019 Telephone [facility] Oncology [facility] Hematology [facility] [address] [place] [address] Aki Guido MD [address] [facility] [address] [place] [address] Needs Orders Written Social History Tobacco Use Types Packs/Day Years [...] (Late Contact Info) Description 06/18/2025 10:00 AM SWING SAW OPERATOR Office Visit [facility] Oncology and Hematology [place] [address] [place] [address] Aki Guido MD [address] [facility] [address] [place] [address] Scheduled Orders Name Type Priority Associated Diagnoses Orde r Schedule CBC WITH DIFFERENTIAL Lab Stat Erythrocytosis Once a week for 999 Occurrences starting 12/12/2019 until 12/11/2020, 6 completed documented as of this encounter Results * CBC WITH DIFFERENTIAL (08/06/2020) Blood Aki Guido MD HEMATOLOGY ORDERABLE S NON [facility] * CBC WITH DIFFERENTIAL (06/23/2020) Blood Aki Guido MD HEMATOLOGY ORDERABLE S Performing Organization Address [facility] Co de Phone Number NON [facility] * CBC WITH DIFFERENTIAL (05/26/2020) Blood Aki Guido MD HEMATOLOGY ORDERABLE S Performing Organization Address [facility]/ZIP Co de Phone Number [facility]# [id number] [address] [place] [address] * CBC WITH DIFFERENTIAL (04/28/2020) Blood Aki Guido MD HEMATOLOGY ORDERABLE S NON [facility] * CBC WITH DIFFERENTIAL (04/14/2020) Blood Aki Guido MD HEMATOLOGY ORDERABLE S NON [facility] * CBC WITH DIFFERENTIAL (12/14/2019) Blood Aki Guido MD HEMATOLOGY ORDERABLE S [facility] documented in this encounter Visit Diagnoses Diagnosis Erythrocytosis- Primary Reserved for inherently not codable concepts WITHOUT codable children documented in this encounter Care Teams Baccarat Manager Relationship Specialty Start Date End Date Warren Cowan MD [address] [phone] PCP - General Family Practice 11/01/19 documented as of this encounter
--- OUTSIDE RECORDS SUMMARY | 2024-07-07 17:19 | XMS_ITS | Encounter Summary ---
Author Organization [facility] Address [address] [facility] Attn: Epic Prelude ADT CRICKET AMAYA [address] Care Team Providers Care Interior Design Director Name Role Phone Warren Cowan MD Primary Care Provider +1- [phone] Encounter Details Date Type Department Care Team (Latest Contact Info) Description 06/23/2022 Travel Social History Tobacco Use Types Packs/Day [...] Exposure Response Date Recorded In the last 10 days, have yo u been in contact with someone who was confirmed or suspected to have Coronavirus/COVID-19? No / Unsure 06/23/2022 10:49 AM FERRYBOAT OPERATOR CABLE documented as of this encounter Plan of Treatment Upcoming Encounters Date Type Department Care Team (Late st Contact Info) Description 06/18/2025 10:00 AM FERRYBOAT OPERATOR CABLE Office Visit [facility] Oncology and Hematology - [place] [address] [facility] 200 [place] [address] Aki Guido MD [address] [facility] [address] [place] [address] documented as of this encounter Visit Diagnoses Not on filedocumented in this encounter Care Teams Interior Design Director Relationship Specialty Start Date End Date Warren Cowan MD [address] [phone] PCP - General Family Practice 11/01/19 documented as of this encounter
--- OUTSIDE RECORDS SUMMARY | 2024-07-07 17:19 | XMS_ITS | Encounter Summary ---
Author Organization [facility] [employer] Address [address] [place] [address] Care Team Providers Care Leather Shaver Name Role Phone Warren Cowan MD Primary Care Provider +1- [phone] Encounter Details Date Type Department Care Team (Late Contact Info) Description 12/23/2022 Orders Only [facility] Oncology and Hematology - [place] [address] [place] [address] Aki Guido MD [address] [place], [place] [email or web address] [address] [place] [address] Social History Tobacco Use Types Packs/Day Years [...] st Contact Info) Description 06/18/2025 10:00 AM RESOURCE ROOM SPECIAL EDUCATION TEACHER Office Visit [facility] Oncology and Hematology - [place] [address] [place] [address] Aki Guido MD [facility] [employer] [address] [place] [phone] documented as of this encounter Procedures Procedure Name Priority Date/Time Associated Diagnosis Comments CBC WITH DIFFERENTIAL Routine 12/22/2022 3:29 PM CDT documented in this encounter Results * CBC WITH DIFFERENTIAL (12/22/2022 3:29 PM CDT) Blood Aki Guido MD HEMATOLOGY ORDERABLE S documented in this encounter Visit Diagnoses Not on filedocumented in this encounter Care Teams Leather Shaver Relationship Specialty Start Date End Date Warren Cowan MD [address] [address] PCP - General Family Practice 11/01/19 documented as of this encounter
--- OUTSIDE RECORDS SUMMARY | 2024-07-07 17:19 | XMS_ITS | Encounter Summary ---
Author Organization [facility] Address [address] [place] [address] Care Team Providers Care Ship Steward Name Role Phone Warren Cowan MD Primary Care Provider +1- [phone] Encounter Details Date Type Department Care Team ([facility] Contact Info) Description 05/07/2021 Orders Only [facility] Oncology and Hematology - [place] [address] [place] [address] Shannon Pelayo Erythrocytosis Social History Tobacco Use Types Packs/Day [...] have Coronavirus / COVID-19? No / Unsure 05/06/2021 3:32 PM CDT documented as of this encounter Plan of Treatment Upcoming Encounters Date Type Department Care Team (Late Contact Info) Description 06/18/2025 10:00 AM MINIATURE SET DESIGNER Office Visit [facility] Oncology and Hematology - [place] [address] [place] [address] Aki Guido MD [address] [facility] [address] [place] [address] documented as of this encounter Visit Diagnoses Diagnosis Erythrocytosis Reserved for inherently not codable concepts WITHOUT codable children documented in this encounter Care Teams Ship Steward Relationship Specialty Start Date End Date Warren Cowan MD [address] [phone] PCP - General Family Practice 11/01/19 documented as of this encounter
--- OUTSIDE RECORDS SUMMARY | 2024-07-07 17:19 | XMS_ITS | Encounter Summary ---
Author Organization [facility] Address [address] [facility] Attn: Epic Prelude ADT CRICKET [place]MAYA [address] Care Team Providers Care Wide Area Network Administrator Name Role Phone Warren Cowan MD Primary Care Provider +1- [phone] Encounter Details Date Type Department Care Team (Latest Contact Info) Description 12/21/2019 Travel Social History Tobacco Use Types Packs/Day [...] AM CDT documented as of this encounter Plan of Treatment Upcoming Encounters Date Type Department Care Team (Late st Contact Info) Description 06/18/2025 10:00 AM STUDENT LIAISON OFFICER Office Visit [facility] Oncology and Hematology - [place] [address] [facility] 200 [place] [address] Aki Guido MD [address] [facility] 100 [place] [address] documented as of this encounter Visit Diagnoses Not on filedocumented in this encounter Care Teams Wide Area Network Administrator Relationship Specialty Start Date End Date Warren Cowan MD [address] [phone] PCP - General Family Practice 11/01/19 documented as of this encounter
--- OUTSIDE RECORDS SUMMARY | 2024-07-07 17:19 | XMS_ITS | Encounter Summary ---
Author Organization [facility] [employer] Address [address] [place] [address] Care Team Providers Care Near Eastern Archaeology Lecturer Name Role Phone Warren Cowan MD Primary Care Provider +1- [phone] Encounter Details Date Type Department Care Team (Late Contact Info) Description 04/22/2020 Orders Only [facility]cology [facility] Hematology [facility] [address] [place] [address] Nemo Price RN Erythrocytosis Social [...] (Late Contact Info) Description 06/18/2025 10:00 AM SENIOR PARTNER Office Visit [facility] Oncology and Hematology [facility] [address] [place] [address] Aki Guido MD [address] [facility] [address] [place] [address] documented as of this encounter Procedures Procedure Name Priority Date/Time Associated Diagnosis Comments CBC WITH DIFFERENTIAL Stat 04/28/2020 Erythrocytosis documented in this encounter Results * CBC WITH DIFFERENTIAL (04/28/2020) Blood Aki Guido MD HEMATOLOGY ORDERABLE S NON [facility] documented in this encounter Visit Diagnoses Diagnosis Erythrocytosis Reserved for inherently not codable concepts WITHOUT codable children documented in this encounter Care Teams Near Eastern Archaeology Lecturer Relationship Specialty Start Date End Date Warren Cowan MD [address] [place] [phone] PCP - General Family Practice 11/01/19 documented as of this encounter
--- OUTSIDE RECORDS SUMMARY | 2024-07-07 17:19 | XMS_ITS | Encounter Summary ---
Author Organization [facility] Address [address] [place] [address] Care Team Providers Care Wastewater Supervisor Name Role Phone Warren Cowan MD Primary Care Provider +1- [phone] Encounter Details Date Type Department Care Team (Late Contact Info) Description 02/28/2024 External Device Data STL ABSTRACTION Provider, Abstract [...] st Contact Info) Description 06/18/2025 10:00 AM HOME MISSION WORKER Office Visit [facility] Oncology and Hematology - [place] [address] [facility] 200 [place] [address] Aki Guido MD [address] [facility] [address] [place] [address] documented as of this encounter Visit Diagnoses Not on filedocumented in this encounter Care Teams Wastewater Supervisor Relationship Specialty Start Date End Date Warren Cowan MD [address] [facility] [address] [place] [address] PCP - General Family Practice 11/01/19 documented as of this encounter
--- OUTSIDE RECORDS SUMMARY | 2024-07-07 17:19 | XMS_ITS | Encounter Summary ---
Author Organization [facility] [employer] [facility] Address [address] [place] [address] Care Team Providers Care Mail Handler Assistant Name Role Phone Warren Cowan MD Primary Care Provider +1- [phone] Reason for Visit * Reason Comments Follow Up follow up labs Encounter Details Date Type Department Care Team (Late st Contact Info) Description 05/06/2021 3:45 PM CDT Office Visit [facility] Oncology and Hematology - [place] 2227 [facility] 200 [place] [address] Aki Guido MD 2[address] [facility] [address] [place] [address] Erythrocytosis (Primary Dx) Social History [...] Sign Reading Time Taken Comments Blood Pressure 108/77 05/06/2021 3:38 PM CDT Pulse 65 05/06/2021 3:38 PM CDT Temperature 36.7 ??C (98 ??F) 05/06/2021 3:38 PM CDT Respiratory Rate - - Oxygen Saturation 96% 05/06/2021 3:38 PM CDT Inhaled Oxygen Concentration - - Weight 94.8 kg (208 lb 14.4 oz) 05/06/2021 3:38 PM CDT Height 157.5 cm (5' 2 ) 05/06/2021 3:38 PM CDT Body Mass Index 38.21 05/06/2021 3:38 PM CDT documented in this encounter Progress Notes * Aki Guido MD - 05/06/2021 3:57 PM CDT HEMATOLOGY / ONCOLOGY PROGRESS NOTE Patient Identification: Name: Allie Buchanan Age: 55 y.o. 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 SUBJECTIVE Patient came into the office for follow-up visit. She denies any bleeding and bruising. She has gained 18 pounds weight. No other new complaint. Review of system Constitutional: denies fevers, sweats, fatigue, malaise, 18 pound weight gain HEENT: denies sinus congestion, hearing or vision [...] showed WBC 9.4 hematocrit 47.2 platelet 221 Assessment: Plan: Patient Active Problem List Diagnosis [...] on April 28, 2020. Labs noted. Hematocrit has increased. She is taking aspirin and remains asymptomatic other than some itching after taking shower. We will hold phlebotomy for another 6 months. She will contact me if she become more symptomatic. Multiple sclerosis. Continue prednisone 5 mg daily. Rheumatoid arthritis. Stable. TOBACCO COUNSELING She is not a tobacco user. 05/06/2021 Aki Guido MD documented in this encounter Plan of Treatment Upcoming Encounters Date Type Department Care Team (Late st Contact Info) Description 06/18/2025 10:00 AM PROSPECTING DRILLER HELPER Office Visit [facility] Oncology and Hematology [facility] [address] [place] [address] Aki Guido MD [address] [facility] [address] [place] [address] Scheduled Orders Name Type Priority Associated Diagnoses Orde r Schedule CBC WITH DIFFERENTIAL Lab Stat Erythrocytosis Expected: 11/03/2021, Expires: 05/06/2022 COMPREHENSIVE METABOLIC PANEL Lab Stat Erythrocytosis Expected: 11/03/2021, Expires: 05/06/2022 documented as of this encounter Visit Diagnoses Diagnosis Erythrocytosis- Primary Reserved for inherently not codable concepts WITHOUT codable children documented in this encounter Care Teams Mail Handler Assistant Relationship Specialty Start Date End Date Warren Cowan MD [address] [address] PCP - General Family Practice 11/01/19 documented as of this encounter
--- OUTSIDE RECORDS SUMMARY | 2024-07-07 17:19 | XMS_ITS | Encounter Summary ---
Author Organization [facility] [employer] [facility] Address [address] [place] [address] Care Team Providers Care Painter And Decorator Name Role Phone Warren Cowan MD Primary Care Provider +1- [phone] Reason for Visit * Reason Comments Follow Up 2 month f/u w/labs * Eval and Treat (Routine) - Closed Specialty Diagnoses / Procedures Referred By Morgan t Referred To Contact Diagnoses d45 Procedures OFFICE VISIT LEVEL 3-5 Warren Cowan MD [address] [address] Aki Guido MD [address] [email or web address] [address] [address] Referral ID Status Reason Start Date Expiration Date Visits Re quested Visits Authorized [id number] Closed 11/06/2019 05/04/2020 6 6 Encounter Details Date Type Department Care Team ([facility] st Contact Info) Description 02/22/2020 10:30 AM CDT Office Visit [facility] Oncology and Hematology - [place] [address] [facility] 200 [place] [address] Aki Guido MD [address] [email or web address] [address] [address] Erythrocytosis (Primary Dx) Social History [...] have Coronavirus / COVID-19? No / Unsure 02/22/2020 10:18 AM CDT documented as of this encounter Last Filed Vital Signs Vital Sign Reading Time Taken Comments Blood Pressure 123/90 02/22/2020 10:29 AM CDT Pulse 99 02/22/2020 10:29 AM CDT Temperature 36.7 ??C (98.1 ??F) 02/22/2020 10:29 AM C DT Respiratory Rate - - Oxygen Saturation 96% 02/22/2020 10:29 AM CDT Inhaled Oxygen Concentration - - Weight 88.9 kg (196 lb) 02/22/2020 10:29 AM CDT Height 157.5 cm (5' 2 ) 02/22/2020 10:29 AM CDT Body Mass Index 35.85 02/22/2020 10:29 AM CDT documented in this encounter Progress Notes * Aki Guido MD - 02/22/2020 11:07 AM CDT HEMATOLOGY / ONCOLOGY PROGRESS NOTE Patient Identification: Name: Allie Buchanan Age: 54 y.o. 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 She has been complaining of diffuse itching especially after taking a shower. Denies any chest pain or shortness of breath. She lost 9 pounds weight since her last visit. Review of system Constitutional: denies fevers, sweats, fatigue, malaise, 9 pound weight loss, complain of diffuse itching HEENT: denies sinus congestion, hearing or vision [...] 9.7 hemoglobin 17.2 hematocrit 52 platelet 162,000 Assessment: Plan: There are no active problems to display for this patient. 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 Patient has a history of COPD quit 25 years ago.Patient also has a history of multiple sclerosis. She is moderately obese. Likely etiology for milderythrocytosis is obesity and previous history of COPD. Labs reviewed. Patient is symptomatic. We will start phlebotomy on every 2 weeks basis. She will continue baby aspirin. I will see her back in 2 months with repeat labs. Multiple sclerosis. Patient is on prednisone 5 mg daily. Stable. Rheumatoid arthritis. Stable. TOBACCO COUNSELING She is not a tobacco user. 02/22/2020 Aki Guido MD documented in this encounter Plan of Treatment Upcoming Encounters Date Type Department Care Team (Late st Contact Info) Description 06/18/2025 10:00 AM WASTEWATER PROJECT ENGINEER Office Visit [facility] Oncology and Hematology - [place] 222 [facility] [address] [place] [address] Aki Guido MD 2227 [facility] [address] [place] [address] Scheduled Orders Name Type Priority Associated Diagnoses Orde r Schedule BASIC METABOLIC PANEL Lab Routine Erythrocytosis Expected: 04/18/2020 (Approximate), Expires: 02/21/2021 documented as of this encounter Results * CBC WITHOUT DIFFERENTIAL (03/31/2020) Blood Aki Guido MD HEMATOLOGY ORDERABLE S NON [facility] documented in this encounter Visit Diagnoses Diagnosis Erythrocytosis- Primary Reserved for inherently not codable concepts WITHOUT codable children documented in this encounter Care Teams Painter And Decorator Relationship Specialty Start Date End Date Warren Cowan MD 531 [facility] [address] [place] [phone] PCP - General Family Practice 11/01/19 documented as of this encounter
--- OUTSIDE RECORDS SUMMARY | 2024-07-07 17:19 | XMS_ITS | Encounter Summary ---
Author Organization [facility] [employer] Address [address] [place] [address] Care Team Providers Care Electrical Prospecting Engineer Name Role Phone Warren Cowan MD Primary Care Provider +1- [phone] Encounter Details Date Type Department Care Team (Late Contact Info) Description 06/19/2024 Orders Only [facility] Oncology and Hematology [place] [address] [place] [address] Aki Guido MD [address] [place], [place] [id number] [address]ards [address] [place] [address] Social History Tobacco Use Types Packs/Day [...] st Contact Info) Description 06/18/2025 10:00 AM DENTAL ASSISTANT MEDICAL ASSISTANT Office Visit [facility] Oncology and Hematology - [place] [address] [place] [address] Aki Guido MD [facility] [employer] [address] [place] [address] documented as of this encounter Procedures Procedure Name Priority Date/Time Associated Diagnosis Comments BASIC METABOLIC PANEL Routine 06/18/2024 11:26 AM DENTAL ASSISTANT MEDICAL ASSISTANT CBC WITH DIFFERENTIAL Routine 06/18/2024 11:16 AM DENTAL ASSISTANT MEDICAL ASSISTANT documented in this encounter Results * BASIC METABOLIC PANEL (06/18/2024 11:26 AM DENTAL ASSISTANT MEDICAL ASSISTANT) Blood Aki Guido MD CHEMISTRY ORDERABLES * CBC WITH DIFFERENTIAL (06/18/2024 11:16 AM DENTAL ASSISTANT MEDICAL ASSISTANT) Blood Aki Guido MD HEMATOLOGY ORDERABLE S documented in this encounter Visit Diagnoses Not on filedocumented in this encounter Care Teams Electrical Prospecting Engineer Relationship Specialty Start Date End Date Warren Cowan MD [address] [phone] PCP - General Family Practice 11/01/19 documented as of this encounter
--- OUTSIDE RECORDS SUMMARY | 2024-07-07 17:19 | XMS_ITS | Encounter Summary ---
Author Organization [facility] [employer] [facility] Address [address] [place] [address] Care Team Providers Care Windows Infrastructure Engineer Name Role Phone Warren Cowan MD Primary Care Provider +1- [phone] Reason for Visit * Reason Comments Follow Up Encounter Details Date Type Department Care Team (Late st Contact Info) Description 06/18/2024 10:00 AM FORGE OPERATOR Office Visit [facility] Oncology and Hematology - [place] [address] [facility] 200 [place] [address] Aki Guido MD 2[address] [facility] [address] [place] [address] Erythrocytosis (Primary Dx) Social History Tobacco Use Types Packs/Day Years Used Date Smoking Tobacco: Former Cigarettes 0.3 5 0 11/08/1988 - 11/08/1993 Smokeless Tobacco: Never Tobacco Cessation:Counseling Given: Not Answered Alcohol Use Standard Drinks/Week Comments Yes 0 [...] Sign Reading Time Taken Comments Blood Pressure 102/64 06/18/2024 10:55 AM FORGE OPERATOR Pulse 55 06/18/2024 10:55 AM FORGE OPERATOR Temperature 36.5 ??C (97.7 ??F) 06/18/2024 1 0:55 AM FORGE OPERATOR Respiratory Rate 15 06/18/2024 10:5 5 AM FORGE OPERATOR Oxygen Saturation 97% 06/18/2024 10: 55 AM FORGE OPERATOR Inhaled Oxygen Concentration - - Weight 100.3 kg (221 lb 3.2 oz) 024 10:55 AM FORGE OPERATOR Height - - Body Mass Index 40.46 11/03/2021 3:41 PM CDT documented in this encounter Progress Notes * Aki Guido MD - 06/18/2024 11:56 AM CST HEMATOLOGY / ONCOLOGY PROGRESS NOTE Patient Identification: Name: Allie Buchanan Age: 58 y.o. 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 SUBJECTIVE Patient came to the office for follow-up visit. She denies any chest pain and shortness of breath. No bleeding and bruising. Patient has gained 13 pound weight. No other new complaints. 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 Patient has a history of COPD quit 25 years ago.Patient also has a history of multiple sclerosis. She is moderately obese. Likely etiology for milderythrocytosis is obesity and previous history of COPD. Labs showed stable hemoglobin and hematocrit. No need for phlebotomy. I recommended regular exercise weight loss and continuation of baby aspirin. Follow-up in 1 year. Rheumatoid arthritis. Stable on methotrexate. Multiple sclerosis. Stable on methylprednisolone. Follow-up in 1 year. 06/18/2024 Aki Guido MD E OPERATOR documented in this encounter Plan of Treatment Upcoming Encounters Date Type Department Care Team (Late st Contact Info) Description 06/18/2025 10:00 AM FORGE OPERATOR Office Visit [facility] Oncology and Hematology - [place] [address] [facility] [address] [place] [address] Aki Guido MD [address] [facility] [address] [place] [address] Scheduled Orders Name Type Priority Associated Diagnoses Orde r Schedule BASIC METABOLIC PANEL Lab Stat Erythrocytosis Expected: 06/18/2025, Expires: 06/18/2025 CBC WITHOUT DIFFERENTIAL Lab Stat Erythrocytosis Expected: 06/18/2025, Expires: 06/18/2025 documented as of this encounter Visit Diagnoses Diagnosis Erythrocytosis- Primary Reserved for inherently not codable concepts WITHOUT codable children documented in this encounter Care Teams Windows Infrastructure Engineer Relationship Specialty Start Date End Date Warren Cowan MD 531 [facility] 100 [place] [phone] PCP - General Family Practice 11/01/19 documented as of this encounter
--- OUTSIDE RECORDS SUMMARY | 2024-07-07 17:19 | XMS_ITS | Encounter Summary ---
Author Organization [facility] [employer] Address [address] [place] [address] Care Team Providers Care Press Operator Carbon Blocks Name Role Phone Warren Cowan MD Primary Care Provider +1- [phone] Encounter Details Date Type Department Care Team (Late Contact Info) Description 11/05/[address] [facility] Oncology and Hematology [place] [address]ith[address] [place] [address] Aki Guido MD [address] [employer] [address] [place] [address] Erythrocytosis Social History Tobacco Use Types Packs/Day [...] (Late Contact Info) Description 06/18/2025 10:00 AM AWNINGS MECHANIC Office Visit [facility] Oncology and Hematology [facility] [address] [place] [address] Aki Guido MD 9559 [facility] [address] [place] [phone] documented as of this encounter Visit Diagnoses Diagnosis Erythrocytosis Reserved for inherently not codable concepts WITHOUT codable children documented in this encounter Care Teams Press Operator Carbon Blocks Relationship Specialty Start Date End Date Warren Cowan MD 531 [facility] [address] [place] [address] PCP - General Family Practice 11/01/19 documented as of this encounter
--- OUTSIDE RECORDS SUMMARY | 2024-07-07 17:19 | XMS_ITS | Encounter Summary ---
Author Organization [facility] Address [address] [facility] Attn: Epic Prelude ADT CRICKET [place] [address] Care Team Providers Care Pharmacy Technician Inpatient Name Role Phone Warren Cowan MD Primary Care Provider +1- [phone] Encounter Details Date Type Department Care Team (Latest Contact Info) Description 11/04/2020 Travel Social History Tobacco Use Types Packs/Day [...] st Contact Info) Description 06/18/2025 10:00 AM ISSUING OPERATOR Office Visit [facility] Oncology and Hematology - [place] 2227 [facility] 200 [place] [address] Aki Guido MD 2227 [facility] [address] [place] [address] documented as of this encounter Visit Diagnoses Not on filedocumented in this encounter Care Teams Pharmacy Technician Inpatient Relationship Specialty Start Date End Date Warren Cowan MD [address] [phone] PCP - General Family Practice 11/01/19 documented as of this encounter
--- OUTSIDE RECORDS SUMMARY | 2024-07-07 17:19 | XMS_ITS | Encounter Summary ---
Author Organization [facility] [employer] Address [address] [place] [address] Care Team Providers Care Methods Examiner Name Role Phone Warren Cowan MD Primary Care Provider +1- [phone] Encounter Details Date Type Department Care Team (Late Contact Info) Description 04/17/2020 Orders Only [facility] Oncology and Hematology [place] [address] [place] [address] Aki Guido MD [facility] [employer] [address] [place] [address] Erythrocytosis Social History Tobacco Use Types [...] st Contact Info) Description 06/18/2025 10:00 AM ENGINE ROOM OPERATOR Office Visit [facility] Oncology and Hematology - [place] Rosa [address] [place] [address] Aki Guido MD [facility] [employer] [address] [place] [phone] documented as of this encounter Procedures Procedure Name Priority Date/Time Associated Diagnosis Comments CBC WITH DIFFERENTIAL Stat 04/14/2020 Erythrocytosis documented in this encounter Results * CBC WITH DIFFERENTIAL (04/14/2020) Blood Aki Guido MD HEMATOLOGY ORDERABLE S NON [facility] documented in this encounter Visit Diagnoses Diagnosis Erythrocytosis Reserved for inherently not codable concepts WITHOUT codable children documented in this encounter Care Teams Methods Examiner Relationship Specialty Start Date End Date Warren Cowan MD [address] [address] PCP - General Family Practice 11/01/19 documented as of this encounter
--- OUTSIDE RECORDS SUMMARY | 2024-07-07 17:19 | XMS_ITS | Encounter Summary ---
Author Organization [facility] Address [address] [place] [address] Care Team Providers Care Delivery Director Name Role Phone Warren Cowan MD Primary Care Provider +1- [phone] Encounter Details Date Type Department Care Team (Late Contact Info) Description 12/08/2023 External Device Data STL ABSTRACTION Provider, Abstract [...] st Contact Info) Description 06/18/2025 10:00 AM ABLE BODIED WATCHMAN Office Visit [facility] Oncology and Hematology - [place] 2227 [facility] 200 [place] [address] Aki Guido MD 2[address] [facility] [address] [place] [address] documented as of this encounter Visit Diagnoses Not on filedocumented in this encounter Care Teams Delivery Director Relationship Specialty Start Date End Date Warren Cowan MD 531 [facility] [address] [place] [address] PCP - General Family Practice 11/01/19 documented as of this encounter
--- OUTSIDE RECORDS SUMMARY | 2024-07-07 17:19 | XMS_ITS | Encounter Summary ---
Author Organization [facility] [employer] Address [address] [place] [address] Care Team Providers Care Purchasing Agent Name Role Phone Warren Cowan MD Primary Care Provider +1- [phone] Encounter Details Date Type Department Care Team (Late Contact Info) Description 06/26/2020 Orders Only [facility] Oncology and Hematology [place] [address] [place] [address] Aki Guido MD [facility] [employer] [address] [place] [address] Erythrocytosis Social History Tobacco Use Types [...] st Contact Info) Description 06/18/2025 10:00 AM NURSERY NURSE Office Visit [facility] Oncology and Hematology - [place] Rosa [address] [place] [address] Aki Guido MD [facility] [employer] [address] [place] [address] documented as of this encounter Procedures Procedure Name Priority Date/Time Associated Diagnosis Comments CBC WITH DIFFERENTIAL Stat 06/23/2020 Erythrocytosis documented in this encounter Results * CBC WITH DIFFERENTIAL (06/23/2020) Blood Aki Guido MD HEMATOLOGY ORDERABLE S NON [facility] documented in this encounter Visit Diagnoses Diagnosis Erythrocytosis Reserved for inherently not codable concepts WITHOUT codable children documented in this encounter Care Teams Purchasing Agent Relationship Specialty Start Date End Date Warren Cowan MD [address] [address] PCP - General Family Practice 11/01/19 documented as of this encounter
--- OUTSIDE RECORDS SUMMARY | 2024-07-07 17:19 | XMS_ITS | Encounter Summary ---
Author Organization [facility] Address [address] [place] [address] Care Team Providers Care Registrar College [employer] Name Role Phone Warren Cowan MD Primary Care Provider +1- [phone] Encounter Details Date Type Department Care Team (Late Contact Info) Description 07/05/2023 External Device Data STL ABSTRACTION Provider, Abstract [...] st Contact Info) Description 06/18/2025 10:00 AM AWS DEVELOPER Office Visit [facility] Oncology and Hematology - [place] 2227 [facility] 200 [place] [address] Aki Guido MD 2227 [facility] [address] [place] [address] documented as of this encounter Visit Diagnoses Not on filedocumented in this encounter Care Teams Registrar College Or University Relationship Specialty Start Date End Date Warren Cowan MD 531 [facility] [address] [place] [address] PCP - General Family Practice 11/01/19 documented as of this encounter
--- OUTSIDE RECORDS SUMMARY | 2024-07-07 17:19 | XMS_ITS | Encounter Summary ---
Author Organization [facility] Address [address] [facility] Attn: Epic Prelude ADT CRICKET [place]MA[place] [address] Care Team Providers Care [employer] Freight Car Cleaner Name Role Phone Warren Cowan MD Primary Care Provider +1- [phone] Encounter Details Date Type Department Care Team (Latest Contact Info) Description 02/22/2020 Travel Social History Tobacco Use Types Packs/Day [...] st Contact Info) Description 06/18/2025 10:00 AM HUMANITIES DEPARTMENT CHAIR Office Visit [facility] Oncology and Hematology - [place] [address] [facility] 200 [place] [address] Aki Guido MD 2227 [facility] 100 [place] [address] documented as of this encounter Visit Diagnoses Not on filedocumented in this encounter Care Teams [employer] Freight Car Cleaner Relationship Specialty Start Date End Date Warren Cowan MD [address] [phone] PCP - General Family Practice 11/01/19 documented as of this encounter
--- OUTSIDE RECORDS SUMMARY | 2024-07-07 17:19 | XMS_ITS | Encounter Summary ---
Author Organization [facility] Address [address] [facility] Attn: Epic Prelude ADT CRICKET AMAYA [address] Care Team Providers Care Registered Nurse Name Role Phone Warren Cowan MD Primary Care Provider +1- [phone] Encounter Details Date Type Department Care Team (Latest Contact Info) Description 04/29/2020 Travel Social History Tobacco Use Types Packs/Day [...] st Contact Info) Description 06/18/2025 10:00 AM BONBON CREAM WARMER Office Visit [facility] Oncology and Hematology - [place] 2227 [facility] 200 [place] [address] Aki Guido MD 2227 [facility] 100 [place] [address] documented as of this encounter Visit Diagnoses Not on filedocumented in this encounter Care Teams Registered Nurse Relationship Specialty Start Date End Date Warren Cowan MD [address] [phone] PCP - General Family Practice 11/01/19 documented as of this encounter
--- OUTSIDE RECORDS SUMMARY | 2024-07-07 17:19 | XMS_ITS | Encounter Summary ---
Author Organization [facility] Address [address] [place] [address] Care Team Providers Care Double Bottom Driver Name Role Phone Warren Cowan MD Primary Care Provider +1- [phone] Encounter Details Date Type Department Care Team (Late Contact Info) Description 02/29/2024 External Device Data STL ABSTRACTION Provider, Abstract [...] st Contact Info) Description 06/18/2025 10:00 AM FORM BUILDING SUPERVISOR Office Visit [facility] Oncology and Hematology - [place] 2227 [facility] 200 [place] [address] Aki Guido MD 2[address] [facility] [address] [place] [address] documented as of this encounter Visit Diagnoses Not on filedocumented in this encounter Care Teams Double Bottom Driver Relationship Specialty Start Date End Date Warren Cowan MD 531 [facility] [address] [place] [address] PCP - General Family Practice 11/01/19 documented as of this encounter
--- OUTSIDE RECORDS SUMMARY | 2024-07-07 17:19 | XMS_ITS | Encounter Summary ---
Author Organization [facility] [employer] Address [address] [place] [address] Care Team Providers Care Messenger Copy Name Role Phone Warren Cowan MD Primary Care Provider +1- [phone] Encounter Details Date Type Department Care Team ([facility] Contact Info) Description 11/07/2019 Orders Only [facility] Oncology and Hematology [facility] [address] [place] [address] Provider, Abstract NO ADDRESS ON FILE Social [...] have Coronavirus / COVID-19? No / Unsure 11/09/2019 8:14 AM CDT documented as of this encounter Plan of Treatment Upcoming Encounters Date Type Department Care Team (Late Contact Info) Description 06/18/2025 10:00 AM WORLDWIDE CHIEF CREATIVE OFFICER Office Visit [facility] Oncology and Hematology [place] [address] [place] [address] Aki Guido MD 2227 [facility] [address] [place] [address] documented as of this encounter Procedures Procedure Name Priority Date/Time Associated Diagnosis Comments US EXTREMITY Routine 10/29/2019 CT CHEST W CONTRAST Routine 10/29/2019 MRI CERVICAL WO CONTRAST Routine 09/22/2019 documented in this encounter Results * US EXTREMITY (10/29/2019) Anatomical Region Laterality Modality Other Abstract Provider US ORDERABLES * CT CHEST W CONTRAST (10/29/2019) Anatomical Region Laterality Modality Chest Other Abstract Provider CT ORDERABLES * MRI CERVICAL WO CONTRAST (09/22/2019) Anatomical Region Laterality Modality Spine Other Abstract Provider MR ORDERABLES documented in this encounter Visit Diagnoses Not on filedocumented in this encounter Care Teams Messenger Copy Relationship Specialty Start Date End Date Warren Cowan MD [address] [address] PCP - General Family Practice 11/01/19 documented as of this encounter
--- OUTSIDE RECORDS SUMMARY | 2024-07-07 17:19 | XMS_ITS | Encounter Summary ---
Author Organization [facility] Address [address] [place] [address] Care Team Providers Care Corrections Sergeant Name Role Phone Warren Cowan MD Primary Care Provider +1- [phone] Encounter Details Date Type Department Care Team (Late Contact Info) Description 08/19/2023 External Device Data STL ABSTRACTION Provider, Abstract [...] st Contact Info) Description 06/18/2025 10:00 AM AIRPLANE ELECTRICIAN Office Visit [facility] Oncology and Hematology - [place] 2227 [facility] 200 [place] [address] Aki Guido MD 2[address] [facility] [address] [place] [address] documented as of this encounter Visit Diagnoses Not on filedocumented in this encounter Care Teams Corrections Sergeant Relationship Specialty Start Date End Date Warren Cowan MD 531 [facility] [address] [place] [address] PCP - General Family Practice 11/01/19 documented as of this encounter
--- OUTSIDE RECORDS SUMMARY | 2024-07-07 17:19 | XMS_ITS | Encounter Summary ---
Author Organization [facility] Address [address] [place] [address] Care Team Providers Care Aeronautics Commission Director Name Role Phone Warren Cowan MD Primary Care Provider +1- [phone] Encounter Details Date Type Department Care Team (Late Contact Info) Description 03/06/2024 External Device Data STL ABSTRACTION Provider, Abstract [...] st Contact Info) Description 06/18/2025 10:00 AM PRODUCT DEVELOPMENT CHEMIST Office Visit [facility] Oncology and Hematology - [place] [address] [facility] 200 [place] [address] Aki Guido MD [address] [facility] [address] [place] [address] documented as of this encounter Visit Diagnoses Not on filedocumented in this encounter Care Teams Aeronautics Commission Director Relationship Specialty Start Date End Date Warren Cowan MD 531 [facility] [address] [place] [address] PCP - General Family Practice 11/01/19 documented as of this encounter
--- OUTSIDE RECORDS SUMMARY | 2024-07-07 17:19 | XMS_ITS | Encounter Summary ---
Author Organization [facility] [employer] Address [address] [place] [address] Care Team Providers Care Formulation Scientist Name Role Phone Warren Cowan MD Primary Care Provider +1- [phone] Encounter Details Date Type Department Care Team (Late Contact Info) Description 09/23/2023 Orders Only [facility] Oncology and Hematology [place] [address]ith[address] [place] [address] Aki Guido MD [address] [place], [place] [address] [address] [place] [address] Social History Tobacco Use Types Packs/Day [...] st Contact Info) Description 06/18/2025 10:00 AM SECTION BEAMER Office Visit [facility] Oncology and Hematology - [place] [address] [place] [address] Aki Guido MD [facility] [place] [address] [place] [phone] documented as of this encounter Procedures Procedure Name Priority Date/Time Associated Diagnosis Comments COMPREHENSIVE METABOLIC PANEL Routine 09/22/2023 10:12 AM CDT documented in this encounter Results * COMPREHENSIVE METABOLIC PANEL (09/22/2023 10:12 AM CDT) Blood Aki Guido MD CHEMISTRY ORDERABLES documented in this encounter Visit Diagnoses Not on filedocumented in this encounter Care Teams Formulation Scientist Relationship Specialty Start Date End Date Warren Cowan MD [address] [address] PCP - General Family Practice 11/01/19 documented as of this encounter
--- OUTSIDE RECORDS SUMMARY | 2024-07-07 17:19 | XMS_ITS | Encounter Summary ---
Author Organization [facility] Address [address] [place] [address] Care Team Providers Care Building Energy Consultant Name Role Phone Warren Cowan MD Primary Care Provider +1- [phone] Encounter Details Date Type Department Care Team (Late Contact Info) Description 10/19/2023 External Device Data STL ABSTRACTION Provider, Abstract [...] st Contact Info) Description 06/18/2025 10:00 AM COAL BAGGER Office Visit [facility] Oncology and Hematology - [place] 2227 [facility] [address] [place] [address] Aki Guido MD 2227 [facility] [address] [place] [address] documented as of this encounter Visit Diagnoses Not on filedocumented in this encounter Care Teams Building Energy Consultant Relationship Specialty Start Date End Date Warren Cowan MD 531 [facility] [address] [place] [address] PCP - General Family Practice 11/01/19 documented as of this encounter
--- OUTSIDE RECORDS SUMMARY | 2024-07-07 17:19 | XMS_ITS | Encounter Summary ---
Author Organization [facility] Address [address] [place] [address] Care Team Providers Care Facilities Custodian Name Role Phone Warren Cowan MD Primary Care Provider +1- [phone] Reason for Referral * Laboratory Services (Routine) - Closed Specialty Diagnoses / Procedures Referred By Morgan palma Referred To Contact Diagnoses Erythrocytosis Procedures JAK2 MUTATION Aki Guido MD [address] [address] [address] Referral ID Status Reason Start Date Expiration Date Visits Requested Visits Authorized [id number] Closed Ordering Department To Schedule 11/09/2019 12/09/2020 1 1 Reason for Visit * Reason Comments Establish Care POLYCYTHEMIA * Eval and Treat (Routine) - Closed Specialty Diagnoses / Procedures Referred By Morgan palma Referred To Contact Diagnoses [id number] Procedures OFFICE VISIT LEVEL 3-5 Warren Cowan MD [address] [place] [address] [place] [address] Aki Guido MD [address] [employer] [employer] [address] [address] Referral ID Status Reason Start Date Expiration Date Visits Re quested Visits Authorized [id number] Closed 11/06/2019 05/04/2020 6 6 Encounter Details Date Type Department Care Team ([facility] st Contact Info) Description 11/09/2019 8:45 AM CDT Office Visit [facility] Oncology and Hematology - [place] 2[address] [facility] 200 [place] [address] Aki Guido MD 0[address] [facility] [address] [place] [address] Erythrocytosis (Primary Dx) Social History [...] Sign Reading Time Taken Comments Blood Pressure 137/81 11/09/2019 8:52 AM CDT Pulse 58 11/09/2019 8:52 AM CDT Temperature 37 ??C (98.6 ??F) 11/09/2019 8:52 AM CDT Respiratory Rate - - Oxygen Saturation 94% 11/09/2019 8:52 AM CDT Inhaled Oxygen Concentration - - Weight 92.1 kg (203 lb) 11/09/2019 8:52 AM CDT Height 157.5 cm (5' 2 ) 11/09/2019 8:52 AM CDT Body Mass Index 37.13 11/09/2019 8:52 AM CDT documented in this encounter Progress Notes * Aki Guido MD - 11/09/2019 9:59 AM CDT Hematology-oncology consult Note Requesting Physician Warren Cowan MD Primary Care Physician Warrne Cowan MD Problem list There is no problem list on file for this patient. Previous TREATMENT ? Measurable Disease ? Reason for Visit Allie Buchanan is a 54 y.o. female who was referred for consultation for erythrocytosis History of present illness This is a 54-year-old pleasant obese female with diagnosis of multiple sclerosis almost 5years ago and has been on wheelchair for last 5 years duration. She has been seen by Dr. Acosta and currently on a steroid with control of her MS symptoms. She went into the hospital on October 28 with increasing pain and swelling in the left shoulder and left supraclavicular area. Labs were drawn in the ER that showed elevated hematocrit of 49%. CT chest was also done on October 28 that showed no lymphadenopathy no jugular or subclavian vein thrombosis. Doppler studies on left upper extremities also showed no evidence of DVT. She has a history of COPD but quit smoking almost 26 years ago. She does have some shortness of breath without any chest pain. Denies any recent weight changes. Denies any history of sleep apnea. Denies any other complaints. Past Medical History Past Medical History: Diagnosis Date ??? Fibromyalgia ??? Lupus ??? MS (multiple sclerosis) ??? Rheumatoid arthritis ??? Seizure disorder Surgical History Past Surgical History: Procedure Laterality Date ??? HX GALLBLADDER SURGERY ??? HX HYSTERECTOMY ??? HX OVARY SURGERY ??? HX TONSILLECTOMY Medications Current Outpatient Medications Medication Sig Dispense Refill ??? levETIRAcetam (KEPPRA) 500 mg tablet Take 500 mg by mouth 2 times daily. ??? topiramate (TOPAMAX) 25 mg tablet Take 25 mg by mouth daily. ??? HYDROcodone-acetaminophen (NORCO) 7.5-325 mg Tablet Take 1 Tablet by mouth every 6 hours as needed for Pain, Moderate. ??? LORazepam (ATIVAN) 1 mg tablet Take 1 mg by mouth every 6 hours as needed for Anxiety. ??? amitriptyline (ELAVIL) 25 mg tablet Take 25 mg by mouth daily at bedtime. ??? solifenacin (VESICARE) 10 mg Tablet Take 10 mg by mouth daily. ??? metaxalone (SKELAXIN) 800 mg tablet Take 800 mg by mouth 3 times daily. ??? pregabalin (LYRICA) 150 mg Capsule Take 150 mg by mouth every 8 hours. ??? cholecalciferol, vitamin D3, 5,000 unit Take 400 Units by mouth every 30 days. ??? propranoloL (INDERAL) 20 mg tablet Take 20 mg by mouth 2 times daily. ??? doxycycline hyclate (VIBRAMYCIN) 100 mg capsule Take 100 mg by mouth daily. ??? sertraline (ZOLOFT) 100 mg tablet Take 100 mg by mouth daily. ??? methylPREDNISolone (MEDROL) 4 mg tablet Take 4 mg by mouth. ??? atorvastatin (LIPITOR) 20 mg tablet Take 20 mg by mouth daily. ??? folic acid (FOLVITE) 1 mg tablet Take 1 mg by mouth daily. ??? ALBUTEROL INHALATION Take by inhalation. ??? OMEPRAZOLE ORAL Take by mouth. ??? docusate sodium (STOOL SOFTENER ORAL) Take by mouth. ??? tiotropium Br/olodaterol HCl (STIOLTO RESPIMAT INHALATION) Take by inhalation. ??? naloxone (NARCAN) 4 mg/spray [place], Non-Aerosol EMERGENCY USE ONLY: Administer 1 spray (4 mg) in one nostril one time. May repeat in alternating nostrils every 2-3 min until responsive or EMS arrives. 2 Each 3 No current facility-administered medications for this visit. Allergies No Known Allergies Immunizations: There is no immunization history on file for this patient. Family History Family History Problem Relation Name Age of Onset ??? Cancer Father ??? Heart Disease Father ??? Diabetes Father ??? Diabetes Mother ??? Heart Disease Brother ??? Heart Disease Sister ??? Diabetes Brother Social History Social History Tobacco Use ??? Smoking status: Former Smoker Packs/day: 0.25 Years: 5.00 Pack years: 1.25 Types: Cigarettes Last attempt to quit: 11/08/1993 Years since quittin.0 ??? Smokeless tobacco: Never Used Substance Use Topics ??? Alcohol use: Yes Frequency: 2-4 times a month Review of Systems Constitutional: No fever; no night sweats; no anorexia; no weight loss; no fatique NEENT: No headache; no change in vision; no change in hearing; no sore throat; no dysphagia Respiratory: No shortness of breath; no pleuritic chest pain; no cough; no hemoptysis Cardiac: No cardiac-like chest pain; no palpitations; no orthopnea; no PND; no REED Breasts: No tenderness; no masses GI: No abdominal pain; no nausea; no vomiting; no diarrhea; no hematochezia; no melena : No dysuria; no frequency; no hesitancy; no hematuria DIAZO TECHNICIAN: Musculosketetal: no bone pain; no arthralgia; no joint swelling; no myalgia; complain of swelling in the left supraclavicular fossa Skin: no pruritis; no rash; no petechiae; no ecchymoses Endocrine: no polydipsia; no polyuria; no unusual weight gain Neuro: No headache; no change in vision; no sensory changes; no muscle weakness; no confusion; no seizures Psych: no anxiety; no depression; Physical Exam Vitals: As per nursing note Constitutional: Well developed, well nourished, no acute distress, non-toxic appearance Teeth and gum. No signs of infection or swelling. Eyes: PERRL, conjunctiva normal HEENT: Atraumatic, external ears normal, nose normal, oropharynx moist, no pharyngeal exudates. no sinus tenderness Neck- normal range of motion, no tenderness, supple Respiratory: No respiratory distress, normal breath sounds, no rales, no wheezing Cardiovascular: Normal rate, normal rhythm, no murmurs, no gallops, no rubs GI: Soft, nondistended, normal bowel sounds, nontender, no splenomegaly, no hepatomegaly, no mass, no rebound, no guarding : No costovertebral angle tenderness Musculoskeletal: No edema, no tenderness, no deformities. Back- no tenderness Integument: Well hydrated, no rash, Digits and nails inspection normal Lymphatic: No lymphadenopathy noted Neurologic: Alert & oriented x 3, CN 2-12 normal, patient is wheelchair-bound. Psychiatric: Speech and behavior appropriate ? labs No results found for this or any previous visit (from the past 24 hour(s)). Labs from October 28 showed WBC 10.8 hemoglobin 16.4 hematocrit 49.9 platelet 169,000 neutrophils 59%lymphocyte 29% Pathology ? Imaging & Other Studies Performance Status? Assessment / Plan: ? Erythrocytosis. Patient is a 54-year-old obese female with history of multiple sclerosis diagnosed 5 years ago and currently wheelchair-bound for last 5 years duration. She has been under the care of Dr. Burden for her multiple sclerosis. She also has a history of COPD and quit smoking 25years ago. She denies any history of sleep apnea. She denies any recent weight gain. I have reviewed these labs that showed slightly elevated hematocrit. She is asymptomatic without any chest pain but does have some shortness of breath. He denies any previous history of stroke and thromboembolic events. Given her relative immobility with her multiple sclerosis she is at high risk for lumbar embolic events with the presence of erythrocytosis. I will order the work-up that will include CBC with differential, erythropoietin level, Benedict 2 mutation, carboxyhemoglobin level and chemistries. I have discussed the treatment plan that includes phlebotomy of 500 cc on a biweekly basis to keep hematocrit close to 45 number. I have also instructed her to take baby aspirin. I will see her back in 6 weeks to discuss the labs. She will start performing phlebotomy in a week. I have answered all the questions to patient's satisfaction. Multiple sclerosis. Patient is currently on steroids under the care of Dr. Burden. Thank you very much for allowing me to participate in Allie Buchanan's evaluation and management. Please feel free to contact if I can be of any further assistance in your patient???s care requiring hematology or oncology evaluation. Sincerely, ? ? Aki Guido M.D. cell TOBACCO COUNSELING She is not a tobacco user. Aki Gudio MD ,11/09/2019 9:59 AM ? Total time spent 80 minutes, two third of the total time spent counseling patient [id number]. CC:?Warren Cowan MD documented in this encounter Plan of Treatment Upcoming Encounters Date Type Department Care Team (Late st Contact Info) Description 06/18/2025 10:00 AM AUDIO VISUAL SPECIALIST Office Visit [facility] Oncology and Hematology - [place] 2[address] [facility] 200 [place] [address] Aki Guido MD 2[address] [facility] [address] [place] [address] Scheduled Orders Name Type Priority Associated Diagnoses Orde r Schedule CARBOXYHEMOGLOBIN Lab Routine Erythrocytosis Ordered: 11/09/2019 documented as of this encounter Procedures Procedure Name Priority Date/Time Associated Diagnosis Comments JAK2 MUTATION Routine 11/16/2019 Erythrocytosis ERYTHROPOIETIN LEVEL Routine 11/16/2019 Erythrocytosis CBC WITH DIFFERENTIAL Routine 11/16/2019 Erythrocytosis documented in this encounter Results * BASIC METABOLIC PANEL (12/14/2019) Blood Aki Guido MD CHEMISTRY ORDERABLES NON [facility] * CBC WITH DIFFERENTIAL (11/30/2019) Blood Aki Guido MD HEMATOLOGY ORDERABLE S NON [facility] * CBC WITH DIFFERENTIAL (11/16/2019) Blood Aki Guido MD HEMATOLOGY ORDERABLE S NON [facility] * ERYTHROPOIETIN LEVEL (11/16/2019) Blood Aki Guido MD CHEMISTRY ORDERABLES NON [facility] * JAK2 MUTATION (11/16/2019) Blood BLOOD SPECIMEN / Unknown Aki Guido MD CHEMISTRY ORDERABLES NON [facility] documented in this encounter Visit Diagnoses Diagnosis Erythrocytosis- Primary Reserved for inherently not codable concepts WITHOUT codable children documented in this encounter Care Teams Facilities Custodian Relationship Specialty Start Date End Date Warren Cowan MD [address] [phone] PCP - General Family Practice 11/01/19 documented as of this encounter
--- OUTSIDE RECORDS SUMMARY | 2024-07-07 17:19 | XMS_ITS | Encounter Summary ---
Author Organization [facility] Address [address] [place] [address] Care Team Providers Care Lathe Winder Name Role Phone Warren Cowan MD Primary Care Provider +1- [phone] Encounter Details Date Type Department Care Team (Late Contact Info) Description 08/25/2023 External Device Data STL ABSTRACTION Provider, Abstract [...] st Contact Info) Description 06/18/2025 10:00 AM HYPERTRICHOLOGIST Office Visit [facility] Oncology and Hematology - [place] 2227 [facility] 200 [place] [address] Aki Guido MD 2227 [facility] [address] [place] [address] documented as of this encounter Visit Diagnoses Not on filedocumented in this encounter Care Teams Lathe Winder Relationship Specialty Start Date End Date Warren Cowan MD 531 [facility] [address] [place] [address] PCP - General Family Practice 11/01/19 documented as of this encounter
--- OUTSIDE RECORDS SUMMARY | 2024-07-07 17:19 | XMS_ITS | Encounter Summary ---
Author Organization [facility] [employer] Address [address] [place] [address] Care Team Providers Care Fire Fighters Dispatcher Name Role Phone Warren Cowan MD Primary Care Provider +1- [phone] Encounter Details Date Type Department Care Team ([facility] Contact Info) Description 08/07/2020 Orders Only [facility] Oncology and Hematology [place] [address]ith[address] [place] [address] Aki Guido MD [address] [employer] [address] [place] [address] Erythrocytosis Social History Tobacco Use [...] COVID-19? No / Unsure 08/05/2020 1:45 PM BULK PLANT MANAGER documented as of this encounter Plan of Treatment Upcoming Encounters Date Type Department Care Team (Late Contact Info) Description 06/18/2025 10:00 AM BULK PLANT MANAGER Office Visit [facility] Oncology and Hematology [facility] [address] [place] [address] Aki Guido MD [address] [employer] [address] [place] [address] documented as of this encounter Procedures Procedure Name Priority Date/Time Associated Diagnosis Comments CBC WITH DIFFERENTIAL Stat 08/06/2020 Erythrocytosis documented in this encounter Results * CBC WITH DIFFERENTIAL (08/06/2020) Blood Aki Guido MD HEMATOLOGY ORDERABLE S NON [facility] documented in this encounter Visit Diagnoses Diagnosis Erythrocytosis Reserved for inherently not codable concepts WITHOUT codable children documented in this encounter Care Teams Fire Fighters Dispatcher Relationship Specialty Start Date End Date Warren Cowan MD [address] [phone] PCP - General Family Practice 11/01/19 documented as of this encounter
--- OUTSIDE RECORDS SUMMARY | 2024-07-07 17:19 | XMS_ITS | Encounter Summary ---
Author Organization [facility] Address [address] [facility] Attn: Epic Prelude ADT CRICKET AMAYA [address] Care Team Providers Care Scalp Treatment Operator Name Role Phone Warren Cowan MD Primary Care Provider +1- [phone] Encounter Details Date Type Department Care Team (Latest Contact Info) Description 05/06/2021 Travel Social History Tobacco Use Types Packs/Day [...] st Contact Info) Description 06/18/2025 10:00 AM AMERICAN SIGN LANGUAGE TEACHER Office Visit [facility] Oncology and Hematology - [place] [address] [facility] 200 [place] [address] Aki Guido MD 2227 [facility] [address] [place] [address] documented as of this encounter Visit Diagnoses Not on filedocumented in this encounter Care Teams Scalp Treatment Operator Relationship Specialty Start Date End Date Warren Cowan MD [address] [address] PCP - General Family Practice 11/01/19 documented as of this encounter
--- OUTSIDE RECORDS SUMMARY | 2024-07-07 17:19 | XMS_ITS | Encounter Summary ---
Author Organization [facility] Address [address] [facility] Attn: Epic Prelude ADT CRICKET [place]MA[place] [address] Care Team Providers Care Manager Managing Name Role Phone Warren Cowan MD Primary Care Provider +1- [phone] Encounter Details Date Type Department Care Team (Latest Contact Info) Description 11/01/2019 Travel Social History Tobacco Use Types Packs/Day [...] have Coronavirus / COVID-19? No / Unsure 11/01/2019 1:49 PM CDT documented as of this encounter Plan of Treatment Upcoming Encounters Date Type Department Care Team (Late st Contact Info) Description 06/18/2025 10:00 AM SUPERVISOR TANK HOUSE Office Visit [facility] Oncology and Hematology - [place] [address] [facility] 200 [place] [address] Aki Guido MD 2227 [facility] [address] [place] [address] documented as of this encounter Visit Diagnoses Not on filedocumented in this encounter Care Teams Manager Managing Relationship Specialty Start Date End Date Warren Cowan MD 531 [facility] [address] [place] [address] PCP - General Family Practice 11/01/19 documented as of this encounter
--- OUTSIDE RECORDS SUMMARY | 2024-07-07 17:19 | XMS_ITS | Encounter Summary ---
Author Organization [facility] Address [address] [place] [address] Care Team Providers Care Learning Administrator Name Role Phone Warren Cowan MD Primary Care Provider +1- [phone] Encounter Details Date Type Department Care Team (Late Contact Info) Description 08/22/2023 External Device Data STL ABSTRACTION Provider, Abstract [...] st Contact Info) Description 06/18/2025 10:00 AM COOLER SERVICE SUPERVISOR Office Visit [facility] Oncology and Hematology - [place] [address] [facility] 200 [place] [address] Aki Guido MD 2[address] [facility] [address] [place] [address] documented as of this encounter Visit Diagnoses Not on filedocumented in this encounter Care Teams Learning Administrator Relationship Specialty Start Date End Date Wraren Cowan MD 531 [facility] [address] [place] [address] PCP - General Family Practice 11/01/19 documented as of this encounter
--- OUTSIDE RECORDS SUMMARY | 2024-07-07 17:19 | XMS_ITS | Encounter Summary ---
Author Organization [facility] Address [address] [place] [address] Care Team Providers Care Towel Inspector Name Role Phone Warren Cowan MD Primary Care Provider +1- [phone] Encounter Details Date Type Department Care Team (Late Contact Info) Description 03/27/2024 External Device Data STL ABSTRACTION Provider, Abstract [...] st Contact Info) Description 06/18/2025 10:00 AM SCREW CUTTER Office Visit [facility] Oncology and Hematology - [place] 2[address] [facility] [address] [place] [address] Aki Guido MD [address] [facility] [address] [place] [address] documented as of this encounter Visit Diagnoses Not on filedocumented in this encounter Care Teams Towel Inspector Relationship Specialty Start Date End Date Warren Cowan MD 531 [facility] [address] [place] [address] PCP - General Family Practice 11/01/19 documented as of this encounter
--- OUTSIDE RECORDS SUMMARY | 2024-07-07 17:19 | XMS_ITS | Encounter Summary ---
Author Organization [email or web address] Address [address] [place] [address] Care Team Providers Care Deck Hand Name Role Phone Warren Cowan MD Primary Care Provider +1- [phone] Reason for Visit * Reason Comments Follow Up Encounter Details Date Type Department Care Team (Late st Contact Info) Description 06/23/2022 11:15 AM APPLICATION MANAGER [facility] Oncology and Hematology - [place] [address] [place] [address] [facility] 200 [place] [address] Aki Guido MD [address] [facility] [address] [place] [address] Erythrocytosis (Primary Dx) Social History [...] Coronavirus/COVID-19? No / Unsure 06/23/2022 10:49 AM APPLICATION MANAGER documented as of this encounter Last Filed Vital Signs Vital Sign Reading Time Taken Comments Blood Pressure 115/73 06/23/2022 10:54 AM APPLICATION MANAGER Pulse 74 06/23/2022 10:54 AM APPLICATION MANAGER Temperature 36.6 ??C (97.9 ??F) 06/23/2022 10:[address] Respiratory Rate 16 06/23/2022 10:54 AM APPLICATION MANAGER Oxygen Saturation 97% 06/23/2022 10:54 AM APPLICATION MANAGER Inhaled Oxygen Concentration - - Weight 93.9 kg (207 lb 1.6 oz) 06/23/2022 10:54 AM APPLICATION MANAGER Height - - Body Mass Index 37.88 11/03/2021 3:41 PM CDT documented in this encounter Progress Notes * Aki Guido MD - 06/23/2022 11:23 AM CST HEMATOLOGY / ONCOLOGY PROGRESS NOTE Patient Identification: Name: Allie Buchanan Age: 56 y.o. 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 SUBJECTIVE Patient came into the office for follow-up visit. She denies any chest pain and shortness of breath. Denies any weight changes. No bleeding and bruising. No other new [...] rashes. 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 Patient has a history of COPD quit 25 years ago.Patient also has a history of multiple sclerosis. She is moderately obese. Likely etiology for milderythrocytosis is obesity and previous history of COPD. Patient started biweekly phlebotomy and received last phlebotomy on April 28, 2020. Labs noted that showed improvement in hematocrit. No need for phlebotomy. Continue baby aspirin. She feels better after phlebotomy with improvement in the itching if hematocrit is elevated. Follow-upin with 6 months. Multiple sclerosis. Stable. Rheumatoid arthritis. She has some joint pains. Currently taking methotrexate and prednisone. TOBACCO COUNSELING She is not a tobacco user. 06/23/2022 Aki Guido MD ICATION MANAGER documented in this encounter Plan of Treatment Upcoming Encounters Date Type Department Care Team (Late st Contact Info) Description 06/18/2025 10:00 AM APPLICATION MANAGER [facility] Oncology and Hematology - [place] [address] [facility] [address] [place] [address] Aki Guido MD [address] [facility] [address] [place] [address] documented as of this encounter Visit Diagnoses Diagnosis Erythrocytosis- Primary Reserved for inherently not codable concepts WITHOUT codable children documented in this encounter Care Teams Deck Hand Relationship Specialty Start Date End Date Warren Cowan MD 531 [facility] [address] [place] [address] PCP - General Family Practice 11/01/19 documented as of this encounter
--- OUTSIDE RECORDS SUMMARY | 2024-07-07 17:19 | XMS_ITS | Encounter Summary ---
Author Organization [facility] Address [address] [place] [address] Care Team Providers Care Theatrical Rigger Name Role Phone Warren Cowan MD Primary Care Provider +1- [phone] Encounter Details Date Type Department Care Team (Late Contact Info) Description 12/17/2019 Orders Only [facility] Oncology and Hematology [place] [address] [place] [address] Aki Guido MD [facility] [address] [place] [address] Erythrocytosis Social History Tobacco Use Types [...] st Contact Info) Description 06/18/2025 10:00 AM PERCUSSION TUNER Office Visit [facility] Oncology and Hematology - [place] [address] [place] [address] Aki Guido MD [facility] [address] [place] [address] documented as of this encounter Procedures Procedure Name Priority Date/Time Associated Diagnosis Comments CBC WITH DIFFERENTIAL Stat 12/14/2019 Erythrocytosis documented in this encounter Results * CBC WITH DIFFERENTIAL (12/14/2019) Blood Aki Guido MD HEMATOLOGY ORDERABLE S NON [facility] documented in this encounter Visit Diagnoses Diagnosis Erythrocytosis Reserved for inherently not codable concepts WITHOUT codable children documented in this encounter Care Teams Theatrical Rigger Relationship Specialty Start Date End Date Warren Cowan MD [address] [address] PCP - General Family Practice 11/01/19 documented as of this encounter
--- OUTSIDE RECORDS SUMMARY | 2024-07-07 17:19 | XMS_ITS | Encounter Summary ---
Author Organization [facility] Address [address] [place] [address] Care Team Providers Care Hotel Dining Room Cashier Name Role Phone Warren Cowan MD Primary Care Provider +1- [phone] Encounter Details Date Type Department Care Team [...] st Contact Info) Description 06/18/2025 10:00 AM DEMOGRAPHER Office Visit [facility] Oncology and Hematology - [place] 2227 [facility] 200 [place] [address] Aki Guido MD 2[address] [facility] [address] [place] [address] documented as of this encounter Visit Diagnoses Not on filedocumented in this encounter Care Teams Hotel Dining Room Cashier Relationship Specialty Start Date End Date Warren Cowan MD 531 [facility] [address] [place] [address] PCP - General Family Practice 11/01/19 documented as of this encounter
--- OUTSIDE RECORDS SUMMARY | 2024-07-07 17:19 | XMS_ITS | Encounter Summary ---
Author Organization [facility] Address [address] [place] [address] Care Team Providers Care Hypoid Gear Tester Name Role Phone Warren Cowan MD Primary Care Provider +1- [phone] Encounter Details Date Type Department Care Team (Late Contact Info) Description 05/08/2024 External Device Data STL ABSTRACTION Provider, Abstract [...] st Contact Info) Description 06/18/2025 10:00 AM DROSS SKIMMER Office Visit [facility] Oncology and Hematology - [place] 2[address] [facility] 200 [place] [address] Aki Guido MD [address] [facility] [address] [place] [address] documented as of this encounter Visit Diagnoses Not on filedocumented in this encounter Care Teams Hypoid Gear Tester Relationship Specialty Start Date End Date Warren Cowan MD 531 [facility] [address] [place] [address] PCP - General Family Practice 11/01/19 documented as of this encounter
--- OUTSIDE RECORDS SUMMARY | 2024-07-07 17:19 | XMS_ITS | Encounter Summary ---
Author Organization [facility] Address [address] [place] [address] Care Team Providers Care Bobcat Operator Name Role Phone Warren Cowan MD Primary Care Provider +1- [phone] Encounter Details Date Type Department Care Team (Late Contact Info) Description 06/26/2024 External Device Data STL ABSTRACTION Provider, Abstract [...] st Contact Info) Description 06/18/2025 10:00 AM LANGUAGE ARTS TEACHER Office Visit [facility] Oncology and Hematology - [place] 2227 [facility] 200 [place] [address] Aki Guido MD 2227 [facility] [address] [place] [address] documented as of this encounter Visit Diagnoses Not on filedocumented in this encounter Care Teams Bobcat Operator Relationship Specialty Start Date End Date Warren Cowan MD 531 [facility] [address] [place] [address] PCP - General Family Practice 11/01/19 documented as of this encounter
--- OUTSIDE RECORDS SUMMARY | 2024-07-07 17:19 | XMS_ITS | Encounter Summary ---
Author Organization [facility] Address [address] [place] [address] Care Team Providers Care Comber Operator Name Role Phone Warren Cowan MD Primary Care Provider +1- [phone] Encounter Details Date Type Department Care Team (Late Contact Info) Description 11/22/2023 External Device Data STL ABSTRACTION Provider, Abstract [...] st Contact Info) Description 06/18/2025 10:00 AM KEYBOARD TEACHER Office Visit [facility] Oncology and Hematology - [place] 2227 [facility] 200 [place] [address] Aki Guido MD 2[address] [facility] [address] [place] [address] documented as of this encounter Visit Diagnoses Not on filedocumented in this encounter Care Teams Comber Operator Relationship Specialty Start Date End Date Warren Cowan MD 531 [facility] [address] [place] [address] PCP - General Family Practice 11/01/19 documented as of this encounter
--- OUTSIDE RECORDS SUMMARY | 2024-07-07 17:19 | XMS_ITS | Encounter Summary ---
Author Organization [facility] [employer] [facility] Address [address] [place] [address] Care Team Providers Care Director Of Rotc Name Role Phone Warren Cowan MD Primary Care Provider +1- [phone] Reason for Visit * Reason Comments Follow Up 6 month f/u with lab s Encounter Details Date Type Department Care Team (Late st Contact Info) Description 11/03/2021 3:45 PM CDT Office Visit [facility] Oncology and Hematology - [place] 2227 [facility] 200 [place] [address] Aki Guido MD [address] [facility] [address] [place] [address] Erythrocytosis (Primary Dx) Social History [...] suspected to have Coronavirus/COVID-19? No / Unsure 11/03/2021 3:18 PM CDT documented as of this encounter Last Filed Vital Signs Vital Sign Reading Time Taken Comments Blood Pressure 122/79 11/03/2021 3:41 PM CDT Pulse 70 11/03/2021 3:41 PM CDT Temperature 36.4 ??C (97.6 ??F) 11/03/2021 3:41 PM CD T Respiratory Rate - - Oxygen Saturation 97% 11/03/2021 3:41 PM CDT Inhaled Oxygen Concentration - - Weight 96.9 kg (213 lb 9.6 oz) 11/03/2021 3:41 P M CDT Height 157.5 cm (5' 2 ) 11/03/2021 3:41 PM CDT Body Mass Index 39.07 11/03/2021 3:41 PM CDT documented in this encounter Progress Notes * Aki Guido MD - 11/03/2021 5:26 PM CDT HEMATOLOGY / ONCOLOGY PROGRESS NOTE Patient Identification: Name: Allie Buchanan Age: 56 y.o. 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 SUBJECTIVE Patient came into the office for follow-up visit. She denies any chest pain or shortness of breath.She has gained 5 pound weight. Denies any bleeding and bruising. No other new complaints. Review of system Constitutional: denies fevers, sweats, fatigue, malaise, 5 pound weight gain HEENT: denies sinus congestion, [...] dizziness Skin: No lumps, bumps or rashes. Complain of itching 12 point review system was reviewed [...] November 03 showed hemoglobin 15.6 hematocrit 48.9 Assessment: Plan: Patient Active Problem List Diagnosis [...] April 28, 2020. Labs noted. Hematocrit has increased further. She has gained some more weight. She will continue baby aspirin. We will proceed with phlebotomy that helped her itching as well. We will see her back in6 months. Multiple sclerosis. Stable. Rheumatoid arthritis. Patient is on prednisone as well as methotrexate. TOBACCO COUNSELING She is not a tobacco user. 11/03/2021 Aki Guido MD documented in this encounter Plan of Treatment Upcoming Encounters Date Type Department Care Team (Late st Contact Info) Description 06/18/2025 10:00 AM REGISTERED VASCULAR TECHNOLOGIST (RVT) Office Visit [facility] Oncology and Hematology - [place] 2[address] [facility] 200 [place] [address] Aki Guido MD [address] [facility] [address] [place] [address] documented as of this encounter Visit Diagnoses Diagnosis Erythrocytosis- Primary Reserved for inherently not codable concepts WITHOUT codable children documented in this encounter Care Teams Director Of Rotc Relationship Specialty Start Date End Date Warren Cowan MD 531 [facility] [address] [place] [address] PCP - General Family Practice 11/01/19 documented as of this encounter
--- OUTSIDE RECORDS SUMMARY | 2024-07-07 17:19 | XMS_ITS | Encounter Summary ---
Author Organization [facility] [employer] Address [address] [place] [address] Care Team Providers Care Yarn Preparation Supervisor Name Role Phone Warren Cowan MD Primary Care Provider +1- [phone] Encounter Details Date Type Department Care Team ([facility] Contact Info) Description 12/03/2019 Orders Only [facility] Oncology and Hematology [place] Nithin [address] [place] [address] Aki Guido MD [address] [employer] [address] [place] [address] Erythrocytosis Social History Tobacco Use [...] (Late Contact Info) Description 06/18/2025 10:00 AM FACTORY HAND Office Visit [facility] Oncology and Hematology [place] [address] [place] [address] Aki Guido MD [address] [phone] documented as of this encounter Procedures Procedure Name Priority Date/Time Associated Diagnosis Comments CBC WITH DIFFERENTIAL Routine 11/30/2019 Erythrocytosis documented in this encounter Results * CBC WITH DIFFERENTIAL (11/30/2019) Blood Aki Guido MD HEMATOLOGY ORDERABLE S NON [facility] documented in this encounter Visit Diagnoses Diagnosis Erythrocytosis Reserved for inherently not codable concepts WITHOUT codable children documented in this encounter Care Teams Yarn Preparation Supervisor Relationship Specialty Start Date End Date Warren Cowan MD [address] [address] PCP - General Family Practice 11/01/19 documented as of this encounter
--- OUTSIDE RECORDS SUMMARY | 2024-07-07 17:19 | XMS_ITS | Encounter Summary ---
Author Organization [facility] Address [address] [place] [address] Care Team Providers Care Artificial Log Machine Operator Name Role Phone Warren Cowan MD Primary Care Provider +1- [phone] Encounter Details Date Type Department Care Team (Late Contact Info) Description 01/24/2024 External Device Data STL ABSTRACTION Provider, Abstract [...] st Contact Info) Description 06/18/2025 10:00 AM MAINTENANCE MECHANIC MILLWRIGHT Office Visit [facility] Oncology and Hematology - [place] 2227 [facility] 200 [place] [address] Aki Guido MD 2227 [facility] [address] [place] [address] documented as of this encounter Visit Diagnoses Not on filedocumented in this encounter Care Teams Artificial Log Machine Operator Relationship Specialty Start Date End Date Warren Cowan MD 531 [facility] [address] [place] [address] PCP - General Family Practice 11/01/19 documented as of this encounter
--- OUTSIDE RECORDS SUMMARY | 2024-07-07 17:19 | XMS_ITS | Encounter Summary ---
Author Organization [facility] [employer] Address [address] [place] [address] Care Team Providers Care Revenue Cycle Administrator Name Role Phone Warren Cowan MD Primary Care Provider +1- [phone] Encounter Details Date Type Department Care Team (Late Contact Info) Description 11/04/2021 Orders Only [facility] Oncology and Hematology [facility] [address] [place] [address] Shannon Pelayo Erythrocytosis Social History [...] (Late Contact Info) Description 06/18/2025 10:00 AM INSURANCE PLAN SPECIALIST Office Visit [facility] Oncology and Hematology [facility] [address] [place] [address] Aki Guido MD 2227 [facility] [address] [place] [address] documented as of this encounter Procedures Procedure Name Priority Date/Time Associated Diagnosis Comments BASIC METABOLIC PANEL Routine 11/03/2021 documented in this encounter Results * BASIC METABOLIC PANEL (11/03/2021) Blood Abstract Provider CHEMISTRY ORDERABLES documented in this encounter Visit Diagnoses Diagnosis Erythrocytosis Reserved for inherently not codable concepts WITHOUT codable children documented in this encounter Care Teams Revenue Cycle Administrator Relationship Specialty Start Date End Date Warren Cowan MD [address] [address] PCP - General Family Practice 11/01/19 documented as of this encounter
--- OUTSIDE RECORDS SUMMARY | 2024-07-07 17:19 | XMS_ITS | Encounter Summary ---
Author Organization [facility] [employer] Address [address] [place] [address] Care Team Providers Care Mine Patrol Name Role Phone Warren Cowan MD Primary Care Provider +1- [phone] Encounter Details Date Type Department Care Team (Late Contact Info) Description 12/12/2019 Orders Only [facility] Oncology [facility] Hematology [facility] [address] [place] [address] Nemo Price RN Erythrocytosis Social [...] (Late Contact Info) Description 06/18/2025 10:00 AM INDOOR LANDSCAPE ARCHITECT Office Visit [facility] Oncology and Hematology [facility] [address] [place] [address] Aki Guido MD 2227 [facility] [address] [place] [address] documented as of this encounter Procedures Procedure Name Priority Date/Time Associated Diagnosis Comments BASIC METABOLIC PANEL Routine 12/14/2019 Erythrocytosis documented in this encounter Results * BASIC METABOLIC PANEL (12/14/2019) Blood Aki Guido MD CHEMISTRY ORDERABLES Performing Organization Address City/State/ZIP Co ks Phone Number [facility] documented in this encounter Visit Diagnoses Diagnosis Erythrocytosis Reserved for inherently not codable concepts WITHOUT codable children documented in this encounter Care Teams Mine Patrol Relationship Specialty Start Date End Date Warren Cowan MD [address] [place] [address] PCP - General Family Practice 11/01/19 documented as of this encounter
--- OUTSIDE RECORDS SUMMARY | 2024-07-07 17:19 | XMS_ITS | Encounter Summary ---
Author Organization [facility] [employer] Address [address] [place] [address] Care Team Providers Care Hardware Design Engineer Name Role Phone Warren Cowan MD Primary Care Provider +1- [phone] Encounter Details Date Type Department Care Team (Late Contact Info) Description 05/30/2020 Orders Only [facility] On[facility] H[facility]ology [facility] [address] [place] [address] Nemo Price RN Erythrocytosis Social [...] (Late Contact Info) Description 06/18/2025 10:[address] SECURITY OFFICER Office Visit [facility] Oncology and Hematology [facility] [address] [place] [address] Aki Guido MD [address] [facility] [address] [place] [address] documented as of this encounter Procedures Procedure Name Priority Date/Time Associated Diagnosis Comments CBC WITH DIFFERENTIAL Stat 05/26/2020 Erythrocytosis documented in this encounter Results * CBC WITH DIFFERENTIAL (05/26/2020) Blood Aki Guido MD HEMATOLOGY ORDERABLE S [facility]# [id number] [address] [place] [address] documented in this encounter Visit Diagnoses Diagnosis Erythrocytosis Reserved for inherently not codable concepts WITHOUT codable children documented in this encounter Care Teams Hardware Design Engineer Relationship Specialty Start Date End Date Warren Cowan MD [address] [phone] PCP - General Family Practice 11/01/19 documented as of this encounter
--- OUTSIDE RECORDS SUMMARY | 2024-07-07 17:19 | XMS_ITS | Encounter Summary ---
Author Organization [facility] Address [address] [facility] Attn: Epic Prelude ADT CRICKET AMAYA [address] Care Team Providers Care Corporate Travel Counselor Name Role Phone Warren Cowan MD Primary Care Provider +1- [phone] Encounter Details Date Type Department Care Team (Latest Contact Info) Description 11/03/2021 Travel Social History Tobacco Use Types Packs/Day [...] st Contact Info) Description 06/18/2025 10:00 AM TRACK ANNOUNCER Office Visit [facility] Oncology and Hematology - [place] [address] [facility] [address] [place] [address] Aki Guido MD [address] [facility] [address] [place] [address] documented as of this encounter Visit Diagnoses Not on filedocumented in this encounter Care Teams Corporate Travel Counselor Relationship Specialty Start Date End Date Warren Cowan MD [address] [phone] PCP - General Family Practice 11/01/19 documented as of this encounter
--- OUTSIDE RECORDS SUMMARY | 2024-07-07 17:19 | XMS_ITS | Encounter Summary ---
Author Organization [facility] [employer] Address [address] [place] [address] Care Team Providers Care Split Leather Mosser Name Role Phone Warren Cowan MD Primary Care Provider +1- [phone] Encounter Details Date Type Department Care Team (Late Contact Info) Description 04/09/2020 Orders Only [facility] H[facility]ology [facility] [address] [place] [address] Nemo Price RN Erythrocytosis Social [...] (Late Contact Info) Description 06/18/2025 10:00 AM LEADERSHIP INTERN Office Visit [facility] Oncology and Hematology [facility] [address] [place] [address] Aki Guido MD [address] [facility] [address] [place] [address] documented as of this encounter Procedures Procedure Name Priority Date/Time Associated Diagnosis Comments CBC WITHOUT DIFFERENTIAL Routine 03/31/2020 Erythrocytosis documented in this encounter Results * CBC WITHOUT DIFFERENTIAL (03/31/2020) Blood Aki Guido MD HEMATOLOGY ORDERABLE S NON [facility] documented in this encounter Visit Diagnoses Diagnosis Erythrocytosis Reserved for inherently not codable concepts WITHOUT codable children documented in this encounter Care Teams Split Leather Mosser Relationship Specialty Start Date End Date Warren Cowan MD [address] [place] [phone] PCP - General Family Practice 11/01/19 documented as of this encounter
--- OUTSIDE RECORDS SUMMARY | 2024-07-07 17:19 | XMS_ITS | Encounter Summary ---
Author Organization [facility] Address [address] [facility] Attn: Epic Prelude ADT CRICKET [place]MA[place] [address] Care Team Providers Care Regulatory Administrator Name Role Phone Warren Cowan MD Primary Care Provider +1- [phone] Encounter Details Date Type Department Care Team (Latest Contact Info) Description 11/09/2019 Travel Social History Tobacco Use Types Packs/Day [...] st Contact Info) Description 06/18/2025 10:00 AM WHIPPED TOPPING FINISHER Office Visit [facility] Oncology and Hematology - [place] [address] [facility] [address] [place] [address] Aki Guido MD [address] [facility] [address] [place] [address] documented as of this encounter Visit Diagnoses Not on filedocumented in this encounter Care Teams Regulatory Administrator Relationship Specialty Start Date End Date Warren Cowan MD [address] [phone] PCP - General Family Practice 11/01/19 documented as of this encounter
--- OUTSIDE RECORDS SUMMARY | 2024-07-07 17:19 | XMS_ITS | Clinical Summary ---
Author Organization [facility] [employer] Address [address] [place] [address] Care Team Providers Care Alarm Investigator Name Role Phone Warren Cowan MD Primary Care Provider +1- [phone] Allergies No known active allergies Medications Medication Sig Dispensed Refills Start Date End Date Status levETIRAcetam (KEPPRA) 500 mg tablet Take 500 mg by mouth 2 times daily. Active topiramate (TOPAMAX) 25 mg tablet Take 25 mg by mouth daily. Active LORazepam (ATIVAN) 1 mg tablet Take 1 mg by mouth every 6 hours as needed for Anxiety. Active amitriptyline (ELAVIL) 25 mg tablet Take 25 mg by mouth daily at bedtime. Active propranoloL (INDERAL) 20 mg tablet Take 20 mg by mouth 2 times daily. Active doxycycline hyclate (VIBRAMYCIN) 100 mg capsule Take 100 mg by mouth daily. Active methylPREDNISolone (MEDROL) 4 mg tablet Take 4 mg by mouth. Active atorvastatin (LIPITOR) 20 mg tablet Take 20 mg by mouth daily. Active folic acid (FOLVITE) 1 mg tablet Take 1 mg by mouth daily. Active OMEPRAZOLE ORAL Take by mouth. Activ e docusate sodium (STOOL SOFTENER ORAL) Take by mouth. Active naloxone (NARCAN) 4 mg/spray [place], Non-Aerosol EMERGENCY USE ONLY: Administer 1 spray (4 mg) in one nostril one time. May repeat in alternating nostrils every 2-3 min until responsive or EMS arrives. 2 Each 3 11/09/2019 Active ergocalciferol (VITAMIN D2) 50,000 unit capsule TAKE 1 CAPSULE BY MOUTH ONCE MONTHLY 01/20/2020 Active Trelegy Ellipta 100-62.5-25 mcg Disk with Device 10/29/2021 Active methotrexate (RHEUMATREX) 2.5 mg Tablet 04/25/2021 Active pregabalin (LYRICA) 150 mg Capsule 10/29/2021 Active solifenacin (VESICARE) 10 mg Tablet Take 10 mg by mouth daily. 09/21/2021 Active meclizine (ANTIVERT) 25 mg tablet TAKE 1 TABLET 4 TIMES A DAY NEEDED FOR DIZZINESS 08/08/2021 Active baclofen (LIORESAL) 20 mg tablet Take 20 mg by mouth daily at bedtime. 09/07/2023 Active clonazePAM (KlonoPIN) 1 mg tablet TAKE 1 TABLET BY MOUTH EVERY DAY 30 MINUTES BEFORE BEDTIME 09/07/2023 Active Active Problems Problem Noted Date Diagnosed Date Erythrocytosis 02/22/2020 Encounters Date Type Department Care Team Description 06/26/2024 External Device Data STL ABSTRACTION Provider, Abstract 06/19/2024 Orders Only [facility] Oncology and Hematology [facility] [address] [place] [address] Aki Guido MD 06/18/2024 10:00 AM FRYER OPERATOR Office Visit [facility] Oncology and [facility] [address] [place] [address] Aki Guido MD Erythrocytosis (Primary Dx) 05/08/2024 External Device Data STL ABSTRACTION Provider, Abstract from Last 3 Months Family History Medical History Relation Name Comments Heart Disease Brother 1 Diabetes Brother 2 Cancer Father Diabetes Father Heart Disease Father Diabetes Mother Heart Disease Sister 1 Relation Name Status Comments Brother 1 Alive Brother 2 Alive Father Mother Sister 1 Alive Sister 2 Social History Tobacco Use Types Packs/Day Years [...] file Not on file Not on file Last Filed Vital Signs Vital Sign Reading Time Taken Comments Blood Pressure 102/64 06/18/2024 10:55 AM FRYER OPERATOR Pulse 55 06/18/2024 10:55 AM FRYER OPERATOR Temperature 36.5 ??C (97.7 ??F) 06/18/2024 1 0:55 AM FRYER OPERATOR Respiratory Rate 15 06/18/2024 10:5 5 AM FRYER OPERATOR Oxygen Saturation 97% 06/18/2024 10: 55 AM FRYER OPERATOR Inhaled Oxygen Concentration - - Weight 100.3 kg (221 lb 3.2 oz) 024 10:55 AM FRYER OPERATOR Height 157.5 cm (5' 2 ) 11/03/2021 3:41 PM CDT Body Mass Index 40.46 11/03/2021 3:41 PM CDT Plan of Treatment Upcoming Encounters Date Type Department Care Team (Late st Contact Info) Description 06/18/2025 10:00 AM FRYER OPERATOR Office Visit [facility] Oncology and Hematology - [place] [address] [facility] [address] [place] [address] Aki Guido MD [address] [facility] [address] [place] [address] Health Maintenance Due Date Last Done Comments Pre-Diabetes and Diabetes Screening 1965 DTAP/TDAP/TD VACCINES (1 - Tdap) 1984 HEPATITIS B VACCINES (1 of 3 - 19+ 3-dose series) 1984 CERVICAL CANCER SCREENING 1995 BREAST CANCER SCREENING 2005 COLORECTAL SCREENING 2010 Colorectal Cancer Screening 2010 FIT-DNA Q 3 years 2010 FIT/FOBT Q 1 year 2010 Flex Sig/CT Colonography Q 5 years 2010 ZOSTER VACCINE (1 of 2) 2015 INFLUENZA VACCINE (#1) 2024 PNEUMOCOCCAL VACCINE 0-64 YEARS Aged Out No longer eligible based on patient's age to complete this topic Procedures Procedure Name Priority Date/Time Associated Diagnosis Comments BASIC METABOLIC PANEL Routine 06/18/2024 11:26 AM FRYER OPERATOR CBC WITH DIFFERENTIAL Routine 06/18/2024 11:16 AM FRYER OPERATOR from Last 3 Months Results * BASIC METABOLIC PANEL (06/18/2024 11:26 AM FRYER OPERATOR) Blood Aki Guido MD CHEMISTRY ORDERABLES * CBC WITH DIFFERENTIAL (06/18/2024 11:16 AM FRYER OPERATOR) Blood Aki Guido MD HEMATOLOGY ORDERABLE S from Last 3 Months Care Teams Alarm Investigator Relationship Specialty Start Date End Date aWrren Cowan MD [address] [phone] PCP - General Family Practice 11/01/19
--- OUTSIDE RECORDS SUMMARY | 2024-07-07 17:20 | XMS_ITS | Encounter Summary ---
Author Organization [facility] Address [address] [facility] [address] [place] [address] Care Team Providers Care Stripper Latex Name Role Phone Warren Cowan MD Primary Care Prov ider Reason for Visit * Cardiology (Routine) - Canceled Specialty Diagnoses / Procedures Referred By Contac t Referred To Contact Diagnoses Syncope and collapse Procedures DEVICE CHECK - REMOTE Param Sotomayor MD Phone: tel: fax: Referral ID Status Reason Start Date Expiration Date V isits Requested Visits Authorized [id number] Canceled 12/17/2016 06/15/2017 1 1 Encounter Details Date Type Department Care Team (Latest Contact Info) Description 01/03/2017 9:00 AM CDT Ancillary Procedure [facility] Cardiology [address] [facility] [address] [place] [phone] Syncope and collapse Social History Tobacco Use Types Packs/Day Years Used Date Smoking Tobacco: Former Alcohol Use Standard Drinks/Week Comments No 0 (1 standard drink = 0.6 oz pur e alcohol) Comments Unknown Sex and Gender Information Value Date Recorded Sex Assigned at Not on file Legal Sex Female 3:44 AM PROJECT RESERVOIR ENGINEER Gender Identity Not on file Sexual Orientation Not on file documented as of this encounter Plan of Treatment Not on file documented as of this encounter Procedures Procedure Name Priority Date/Time Associated Diagnosis Comments DEVICE CHECK - REMOTE Routine 01/04/2017 10:48 AM CDT Syncope and collapse documented in this encounter Results * DEVICE CHECK - REMOTE (01/04/2017 10:48 AM CDT) Anatomical Region Laterality Modality Other Narrative 02/18/2017 5:51 PM CDT [employer] reveal implantable loop recorder Dx; Syncope. DOI 03/11/2015. [employer] remote home monitoring Q35-45 days. See scanned remote report. us Param Sotomayor MD [facility] PROC EDURES Final Result documented in this encounter Visit Diagnoses Diagnosis Syncope and collapse documented in this encounter Care Teams Stripper Latex Relationship Specialty Start Date End Date Warren Cowan MD [address] [place] [address] PCP - General 10/01/16 documented as of this encounter
--- OUTSIDE RECORDS SUMMARY | 2024-07-07 17:20 | XMS_ITS | Encounter Summary ---
Author Organization [facility] Address [address] [facility] [address] [place] [address] Care Team Providers Care Tile Layer Drainage Name Role Phone Warren Cowan MD Primary Care Prov ider Encounter Details Date Type Department Care Team (Late st Contact Info) Description 09/20/2019 Telephone [facility] Cardiology [address] [place] [address] Param Sotomayor MD [address] [facility] [address] [place], [place] [id number] Social History Tobacco Use Types Packs/Day Years Used Date Smoking Tobacco: Former Smokeless Tobacco: Never Alcohol Use Standard Drinks/Week Comments No 0 (1 standard drink = 0.6 oz pur e alcohol) Comments Unknown Sex and Gender Information Value Date Recorded Sex Assigned at Not on file 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 Due to elective cases being postponed because of COVID-19 this case has been cancelled for now. Patient has been notified and is understanding of this. documented in this encounter Plan of Treatment Not on file documented as of this encounter Visit Diagnoses Not on filedocumented in this encounter Care Teams Tile Layer Drainage Relationship Specialty Start Date End Date Warren Cowan MD [address] [place] [address] PCP - General 10/01/16 documented as of this encounter
--- OUTSIDE RECORDS SUMMARY | 2024-07-07 17:20 | XMS_ITS | Encounter Summary ---
Author Organization [facility] Address [address] [place] [address] Care Team Providers Care Daycare Worker Name Role Phone Warren Cowan MD Primary Care Prov ider Reason for Visit * Reason Comments Follow-up overdue follow up on syncope, palps Encounter Details Date Type Department Care Team (Late st Contact Info) Description 08/28/2019 2:30 PM CALIBRATION TECHNICIAN Office Visit [facility] Cardiology [address] [place] [address] Param Sotomayor MD [id number] [place] [address] Syncope and collapse (Primary Dx); Status post placement of implantable loop recorder; Palpitations; Multiple sclerosis (CMS/HCC); Recurrent falls; Lipid screening Social History Tobacco Use Types Packs/Day Years Used Date Smoking Tobacco: Former Smokeless Tobacco: Never Alcohol Use Standard Drinks/Week Comments No 0 (1 standard drink = 0.6 oz pur e alcohol) Comments Unknown Sex and Gender Information Value Date Recorded Sex Assigned at Not on file Legal Sex Female 3:44 AM CALIBRATION TECHNICIAN Gender Identity Not on file Sexual Orientation Not on file documented as of this encounter Last Filed Vital Signs Vital Sign Reading Time Taken Comments Blood Pressure 126/76 08/28/2019 2:17 PM CALIBRATION TECHNICIAN Pulse 64 08/28/2019 2:17 PM CALIBRATION TECHNICIAN Temperature - - Respiratory Rate - - Oxygen Saturation 96% 08/28/2019 2:17 PM CALIBRATION TECHNICIAN Inhaled Oxygen Concentration - - Weight 96.6 kg (213 lb) 08/28/2019 2:17 PM CALIBRATION TECHNICIAN Height 165.1 cm (5' 5 ) 08/28/2019 2:17 PM CALIBRATION TECHNICIAN Body Mass Index 35.45 08/28/2019 2:17 PM CALIBRATION TECHNICIAN documented in this encounter Progress Notes * Param Sotomayor MD - 08/28/2019 2:30 PM CST [facility] DATE OF VISIT: 08/28/2019 CHIEF COMPLAINT Chief Complaint Patient presents with ??? Follow-up overdue follow up on syncope, palps HPI Allie Buchanan is a 54 y.o. female with a PMHx of recurrent falls, near syncope and syncope, s/p loop recorder, fibromyalgia, SLE, Multiple sclerosis, s/p loop recorder seen in follow-up. Today is a good day, but most other days severely fatigued, REED ambulating to bathroom, has to lie down a lot, +palpitations. C/o near syncope 2 weeks very dizzy and fell but 1 month ago syncope and has no recollection of the event or half that day. States she hit her head, had bruising over her nose but did not go to the ER for evaluation. Multiple sclerosis, obesity, fibromylagia, depression, dyslipidemia, PUD, SLE, +family h/o CAD seenin consultation by Dr. Guzmán for evaluation and management for dizziness and syncope. Old records: Patient is a very complicated past medical history. Symptoms present for over 2 years. Relates history of head trauma from a patient resulting in chronic recurrent headaches, vertigo and dizziness. Complains of frequent recurrent dizzy episodes imbalance and falls without loss of consciousness. Also relates several recurrent episodes and dizzy lightheaded near-syncope and kathrine loss of consciousness with injuries. These occur on varying timeframes with recovery of awareness after 20-40 seconds.She also notes occasional episodes of palpitations and heart racing out of her chest. She has had less falls after becoming more sedentary in a wheelchair. She is not very active due to weakness, pain. Occasional chest pains none recently. History of chest pain resolve with nitroglycerin 2013. Negative Lexiscan stress test October 2013. Palpitations last 5 minutes at a time 2 times per week. Not necessarily associated with near- syncope or syncopal but has noted this preceding as well. Prior evaluations with neurology felt to reveal diagnosis. Had an appointment with an heading up machine operator who canceled her appointment she states. Patient's quality of life has been destroyed by her medical conditions and recurrent syncope for fear of ambulation and injuries. Denies bleeding, fevers or chills.Above syncopal episodes have all occurred with upright position transferring and/or standing. 08/04/15 No syncope lately but not as active because of lupus flair. c/o multiple pain locations, very dizzy, perhaps more so lately but has been less active. +falls one more significant of late tryingto get into bed. +rash from lupus. Occ edema resolved presently. SOB with bathing or minimal activities. 02/27/16 S/p oophorectomy and mass excision on Tuesday. Still in pain not feeling all that great. NO other new issues otherwise. Occ dizziness near syncope no syncope. No Palps. No F/C. No CP or SOB. 08/30/16 c/o kidnesy stones bilat seeing Urology. Last month all she remembers waking up on kitchen floor, wrist sprain, concussion. OCc dizziness. Started on fludrocortisone (now BID) gained 18lb butdoesn't feel like it is helping at all, occ SOB. Occ palps as well or heart pounding. 03/09/17 Recurrent seizures started on AED therapy and no seizures x 1 month now. Were having more frequent spells prior to this. Notes L lower side pain hurts with deep breathing and movement went to ER diagnosed with bronchitis given neb and Z ade sxs still present. Feels about the same overall. Nobleeding. +bruises. 09/16/17 HAd 5 seizures since last visit. More SOB went to ER recently and had pain under breastboneshe states. No syncope since last visit. Tx for pneumonia, following up with Dr. Guzmán for masses on CT she states. No bleeding. Grieving the loss of her son 05/2017. 03/24/18 Doing doing fairly well, able to take care her granddaughter, no significant falls, no nearsyncope or syncope, no CP or SOB. Started on Propranolol for tremors which is helping. SOB has improved significantly. No edema. No real dizziness. No seizures. No palpitations either. 08/28/19 Suffered for 3 months with pneumonia but did not seek attention for 2 months then got ABx now completed just recently as well as steroids and now feeling better. No CP, syncope or recent fall. HAd been getting meds from [facility] until they messed up her medications not giving all her meds.No syncope or seizures. occ dizziness. No edema. MEDICAL HISTORY Past Medical History: Diagnosis Date ??? Lupus erythematosus Lupus; Comments: [facility] 03/04/2015 - ??? Multiple sclerosis (CMS/HCC) MS; Comments: [facility] 03/04/2015 - Social History Tobacco Use ??? Smoking status: Former Smoker ??? Smokeless tobacco: Never Used Substance Use Topics ??? Alcohol use: No ??? Drug use: Not on file Family History Problem Relation Age of Onset ??? Heart disease Father Heart disease; ??? Stroke Father Stroke; ??? Heart disease Mother Heart disease; ??? Stroke Mother Stroke; ??? Stroke Brother Stroke; MEDICATIONS HOME MEDICATIONS : amitriptyline (ELAVIL) 25 mg tablet atorvastatin (LIPITOR) 20 mg tablet calcium carbonate (CALCIUM 500) 1,250 MG (500 mg of elemental calcium) tablet docusate sodium (STOOL SOFTENER) 100 mg capsule folic acid (FOLVITE) 1 mg tablet HYDROcodone-acetaminophen (NORCO) 5-325 mg per tablet levETIRAcetam (KEPPRA) 500 mg tablet LORazepam (ATIVAN) 1 mg tablet metaxalone (SKELAXIN) 800 mg tablet methylPREDNISolone (MEDROL) 4 mg tablet milnacipran (SAVELLA) 50 mg tablet omeprazole (PriLOSEC) 20 mg capsule pilocarpine (SALAGEN) 5 mg tablet pregabalin (LYRICA) 150 mg capsule propranolol (INDERAL) 20 mg tablet psyllium seed, sugar, (METAMUCIL, SUGAR,) powder sertraline (ZOLOFT) 100 mg tablet solifenacin (VESICARE) 5 mg tablet Stiolto Respimat 2.5-2.5 mcg/actuation inhaler topiramate (TOPAMAX) 25 mg tablet fludrocortisone 0.1 mg tablet ALLERGIES No Known Allergies REVIEW OF SYSTEMS Review of Systems Constitution: Positive for weight gain. Negative for decreased appetite, diaphoresis, fever, malaise/fatigue, night sweats and weight loss. HENT: Negative for hearing loss and nosebleeds. Eyes: Negative for blurred vision and pain. Cardiovascular: Positive for dyspnea on exertion. Negative for chest pain, claudication, irregular heartbeat, leg swelling, near-syncope, orthopnea, palpitations and syncope. Respiratory: Negative for cough, hemoptysis, shortness of breath, snoring and wheezing. Endocrine: Negative for cold intolerance and heat intolerance. Hematologic/Lymphatic: Negative for bleeding problem. Does not bruise/bleed easily. Skin: Negative for color change, itching, rash and suspicious lesions. Musculoskeletal: Positive for joint pain. Negative for falls, muscle weakness and myalgias. Gastrointestinal: Negative for abdominal pain, heartburn, hematemesis, melena and nausea. Genitourinary: Negative for dysuria, hematuria and nocturia. Neurological: Positive for dizziness. Negative for excessive daytime sleepiness, focal weakness, headaches, light-headedness, loss of balance, seizures and weakness. Psychiatric/Behavioral: Negative for altered mental status, depression and memory loss. The patientis not nervous/anxious. Allergic/Immunologic: Negative for environmental allergies. PHYSICAL EXAM Vitals BP 126/76 (BP Location: Right arm, Patient Position: Sitting) Pulse 64 Ht 165.1 cm (5' 5 ) Wt 96.6 kg (213 lb) SpO2 96% BMI 35.45 kg/m?? Weight: 96.6 kg (213 lb) Height: 165.1 cm (5' 5 ) Body mass index is 35.45 kg/m??. Physical Exam Constitutional: She is oriented to person, place, and time. She appears well- developed and well-nourished. She is cooperative. No distress. HENT: Head: Normocephalic and atraumatic. Right Ear: External ear normal. Left Ear: External ear normal. Nose: Nose normal. Mouth/Throat: Oropharynx is clear and moist and mucous membranes are normal. Normal dentition. Eyes: Conjunctivae, EOM and lids are normal. No scleral icterus. Neck: Normal range of motion. Neck supple. Normal carotid pulses, no hepatojugular reflux and no JVD present. Carotid bruit is not present. No tracheal deviation present. No thyromegaly present. Cardiovascular: Normal rate, regular rhythm, S1 normal, S2 normal, normal heart sounds, intact distal pulses and normal pulses. Exam reveals no gallop, no S3, no S4, no distant heart sounds and no friction rub. No murmur heard. Pulmonary/Chest: Effort normal and breath sounds normal. No respiratory distress. She has no wheezes. She has no rales. She exhibits no tenderness. subcut loop recorder left ant chest wall Abdominal: Soft. Bowel sounds are normal. She exhibits no distension and no mass. There is no abdominal tenderness. There is no rebound and no guarding. Musculoskeletal: Normal range of motion. General: No tenderness, deformity or edema. Comments: Wheeled walker Lymphadenopathy: She has no cervical adenopathy. Neurological: She is alert and oriented to person, place, and time. No cranial nerve deficit. She exhibits normal muscle tone. Coordination normal. Skin: Skin is warm and dry. No ecchymosis, no petechiae and no rash noted. She is not diaphoretic. No cyanosis or erythema. No pallor. Nails show no clubbing. Loop recorder subcutaneous L ant chest Psychiatric: She has a normal mood and affect. Her speech is normal and behavior is normal. Judgment normal. LABS AND OTHER DIAGNOSTIC TESTS No visits with results within 3 Month(s) from this visit. Latest known visit with results is: Office Visit on 09/16/2017 Component Date Value Ref Range Status ??? Cholesterol, POC 09/16/2017 255 mg/dL Final ??? HDL, POC 09/16/2017 55 mg/dL Final ??? Triglycerides, POC 09/16/2017 367 mg/dL Final ??? LDL, Direct, POC 09/16/2017 127 mg/dL Final ??? Chol/HDL Ratio, POC 09/16/2017 4.7 Final ??? Non-HDL Cholesterol, POC 09/16/2017 201 mg/dL Final ??? Cholesterol Total, POC 09/16/2017 255 mg/dL Final 04/06/2019 2D Echo: Conclusions: Normal left ventricular systolic function. No focal wall motion abnormalities. Normal left ventricular size. Definity contrast agent used to visually enhance endocardial wall motion and contractility. Lot Number: [id number]. Mild concentric left ventricular hypertrophy. Impaired diastolic relaxation Grade I. Ejection fraction is visually estimated at 70-75 %. Aortic valve not well visualized. No evidence of hemodynamically significant aortic stenosis by Doppler. Peak gradient of 12.0 mmHg. Mean gradient of 6.0 mmHg. Valve area of 2.1 cm2. Normal sinus rhythm. Technically difficult study with limited views. Personally reviewed EKG, Echocardiogram, and bloodwork/lipids. Loop recorder interrogations personally reviewed. ASSESSMENT Diagnoses and all orders for this visit: Syncope and collapse (Primary) Status post placement of implantable loop recorder Palpitations Multiple sclerosis (CMS/HCC) Recurrent falls PLAN/RECOMMENDATIONS 1. BP controlled. Monitor BP on routine basis. Call with readings. Continue consistent cardiovascular exercise, weight loss, medication compliance, and low- sodium diet. 2. Stop fludrocortisone as BP stable and no syncope clinically assoc with hypotension. Monitor veryclosely 3. Ambulate with caution. Rise slowly from a seated position. Monitor symptoms closely. Avoid dehydration. 4. Loop recorder is no longer functional. She is agreeable to explantation of device. We have not seen associated arrhythmias with syncope. Therefore, no clear benefit to implanting new device. Riskswith removal including but not limited to bleeding infection discussed. 5. Lifestyle modification counseling performed. Weight loss, exercise, reduction in caloric intake. 6. Contact office with recurrent episodes and for further recommendations. 7. Lipids personally reviewed in office 08/28/19 LDL 83, good control. Continue lifestyle modification. -12 lead EKG today personally reviewed SR 64bpm IN 144msec QRS 84msec QTc 425msec poor R-wave progression Over 50% of this visit counseling syncope, loop recorder, HTN, lipids, medications, lifestyle modification. Follow up in the office in 3-4 months or sooner as needed. Thank you for allowing me the privilege of participating in the care this very pleasant patient. Please do not hesitate to contact me with any additional questions or concerns. Tamica Sotomayor MD, [facility] BRATION TECHNICIAN documented in this encounter Miscellaneous Notes * Addendum Note - Herlinda Fong MA - 08/28/2019 2:30 PM CSTAddended by: HERLINDA FONG on: 08/29/2019 04:28 PM Modules accepted: Orders BRATION TECHNICIAN documented in this encounter Plan of Treatment Not on file documented as of this encounter Procedures Procedure Name Priority Date/Time Associated Diagnosis Comments POCT LIPID PANEL Routine 08/28/2019 3:06 PM CALIBRATION TECHNICIAN Lipid screening ECG 12-LEAD Routine 08/28/2019 Palpitations documented in this encounter Results * POCT lipid panel (08/28/2019 3:06 PM CALIBRATION TECHNICIAN) Cholesterol, POC 192 mg/dL HDL, POC 52 mg/dL Triglycerides, POC 287 mg/dL LDL Cholesterol POC 83 mg/dL Chol/HDL Ratio, POC 3.7 Non-HDL Cholesterol, POC 140 mg/dL Cholesterol Total, POC 192 mg/dL Blood specimen (specimen) 08/28/2019 3:06 PM CALIBRATION TECHNICIAN us Param Sotomayor MD POINT OF CARE TEST ORDER OPAL Final Result * ECG 12 lead (08/28/2019) us Param Sotomayor MD ECG ORDERABLES Final Re sult documented in this encounter Visit Diagnoses Diagnosis Syncope and collapse- Primary Status post placement of implantable loop recorder Palpitations Multiple sclerosis (HCC) Multiple sclerosis Recurrent falls Lipid screening Screening for lipoid disorders documented in this encounter Discontinued Medications Medication Sig Discontinue Reason Start Date End Da te fludrocortisone 0.1 mg tablet take 1 tablet by oral route 2 times every day 08/30/2016 08/28/2019 documented as of this encounter Historical Medications * This list may reflect changes made after this encounter. Stiolto Respimat 2.5-2.5 mcg/actuation inhaler INHALE 2 PUFFS BY MOUTH DAILY 08/13/2019 topiramate (TOPAMAX) 25 mg tablet Take 25 mg by mouth nightly 08/14/2019 added in this encounter Care Teams Daycare Worker Relationship Specialty Start Date End Date Warren Cowan MD [address] [place] [address] PCP - General 10/01/16 documented as of this encounter
--- OUTSIDE RECORDS SUMMARY | 2024-07-07 17:20 | XMS_ITS | Encounter Summary ---
Author Organization [facility] Address [address] [place] [address] Phone Care Team Providers Care [employer] Fishing Boat Crewman Name Role Phone Warren Cowan MD Primary Care Prov ider Encounter Details Date Type Department Care Team (Late st Contact Info) Description 11/23/2023 Telephone [facility] Ophthalmology [address] [facility] [address] [place] [address] Lani Lowe MD [address] [facility] [address] [place] [address] Social History Tobacco Use Types Packs/Day Years Used Date Smoking Tobacco: Former Smokeless Tobacco: Never Alcohol Use Standard Drinks/Week Comments No 0 (1 standard drink = 0.6 oz pur e alcohol) Personal Safety Answer Date Recorded Getting School Help Needed Not on file 09/17 Comments Unknown Sex and Gender Information Value Date Recorded Sex Assigned at Not on file 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 She declined to rescheduled cancelled appointment from 11/17 documented in this encounter Plan of Treatment Not on file documented as of this encounter Visit Diagnoses Not on filedocumented in this encounter Care Teams [employer] Crewman Relationship Specialty Start Date End Date Warren Cowan MD [address] [place] [address] PCP - General 10/01/16 documented as of this encounter
--- OUTSIDE RECORDS SUMMARY | 2024-07-07 17:20 | XMS_ITS | Encounter Summary ---
Author Organization [facility] Medical Group Address [address] [place] [address] Care Team Providers Care Driver Lifter Of Sanitation Truck Name Role Phone Marita Cowan MD Primary Care Prov ider Reason for Visit * Diagnostic Imaging (Routine) - Closed Specialty Diagnoses / Procedures Referred By Contac t Referred To Contact Cardiology Imaging Diagnoses Postural dizziness with near syncope Shortness of breath Procedures Transthoracic Echo Complete W Doppler/CF Marita Cowan MD Phone: tel: fax: [facility] Medical [facility] Cardiology [address] [place] [address] Phone: tel: fax: Referral ID Status Reason Start Date Expiration Date Visits Re quested Visits Authorized [id number] Closed 03/26/2019 10/04/2020 1 1 Encounter Details Date Type Department Care Team (Latest Contact Info) Description 04/06/2019 3:00 PM CDT Ancillary Procedure [facility] Medical [facility] Cardiology [address] [place] [address] Postural dizziness with near syncope; Shortness of breath Social History Tobacco Use Types Packs/Day Years Used Date Smoking Tobacco: Former Smokeless Tobacco: Never Alcohol Use Standard Drinks/Week Comments No 0 (1 standard drink = 0.6 oz pur e alcohol) Comments Unknown Sex and Gender Information Value Date Recorded Sex Assigned at Not on file 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 Gender Identity Not on file Sexual Orientation Not on file documented as of this encounter Plan of Treatment Not on file documented as of this encounter Procedures Procedure Name Priority Date/Time Associated Diagnosis Comments TRANSTHORACIC ECHO (TTE) COMPLETE W DOPPLER/CF W CONTRAST Routine 04/06/2019 4:05 PM CDT Postural dizziness with near syncope Shortness of breath documented in this encounter Results * TRANSTHORACIC ECHO (TTE) COMPLETE W DOPPLER/CF W CONTRAST (04/06/2019 4:05 PM CDT) Anatomical Region Laterality Modality Ultrasound 04/06/2019 2:34 PM CDT Narrative 04/06/2019 4:59 PM CDT [facility] [address], [place] [address] [address], [place] [address] P:[phone] P:[phone] Echocardiographic Report Patient Name: ABIODUN BUCHANAN : 1965 Study Date: 04/06/2019 2:34:02 PM Gender: F Tech: Location: [place] Ref.Provider: ROULA Height(Cm): 165 BSA: 1.97 Weight(Kg): 89.36 Heart Rate: 80 BP: 139/84 Quality: Definity contrast agent used to enhance endocardial border definition Order Provider: MARITA COWAN Procedures: Echocardiographic Report: Transthoracic echocardiogram with complete 2D, M-Mode, color Doppler examination and Definity contrast. Indications: Cardiomegaly, Dizziness, Shortness of breath, and Syncope. Measurements: 2D/M Mode ?Doppler ? Measurement ?Value ?Normal Range ? Measurement ?Value ?Normal Range ? EF Mod ? 70 ?MOUNIKA ?2.10 ? [ 2.00 - 4.00 ] cm2 ? EF MM ?68 ? [ 55 - 70 ] % ?AV Mean PG ? 6 ?mmHg ? LVIDd MM ? 3.17 ? [ 3.90 - 5.30 ] cm ? AV Peak Fidencio ?1.76 ? m/s ? LVIDs MM ? 2.00 ? [ 2.30 - 3.90 ] cm ? AV Peak PG ? 12 ? mmHg ? LVPWd MM ? 1.17 ? [ 0.60 - 1.00 ] cm ? AV VTI ? 0.37 ? cm ? IVSd MM ?1.17 ? [ 0.60 - 0.90 ] cm ? LVOT Diam ?2.01 ? [ 1.70 - 2.10 ] cm ? LA Dimension MM ?3.83 ? [ 2.70 - 3.80 ] cm ? LVOT Peak Fidencio ?1.16 ? [ 0.70 - 1.10 ] m/s ? AoR Diam MM ?2.83 ? [ 2.60 - 3.70 ] cm ? LVOT VTI ? 0.26 ? cm ? LA Volume Index ?13.00 ?[ 16.00 - 28.00 ] cc/m2 ?MV E Peak Fidencio ?0.52 ? [ 0.60 - 1.30 ] m/s ? ACS MM ? 1.42 ? cm ? MV A Peak Fidencio ?0.84 ? [ 0.40 - 0.80 ] m/s ? MV Decel Time ?384 ?[ 150 - 200 ] msec ? PV Peak Fidencio ?0.86 ? [ 0.40 - 0.80 ] m/s ? E' ? 0.08 ? E/E' ? 6 ? Findings: Interpretation Site: Exam was interpreted at [facility]. Left Ventricle: Normal left ventricular systolic function. No focal wall motion abnormalities. Normal left ventricular size. Definity contrast agent used to visually enhance endocardial wall motion and contractility. Lot Number: [id number]. Mild concentric left ventricular hypertrophy. Impaired diastolic relaxation Grade I. Ejection fraction is visually estimated at 70-75 %. Right Ventricle: Normal right ventricular size. Normal right ventricular systolic function. Left Atrium: The left atrium is normal in size. Right Atrium: The right atrium is normal in size. Atrial Septum: The atrial septum is not well visualized. Mitral Valve: Mitral valve is not well visualized. Trivial regurgitation of the mitral valve. Aortic Valve: Aortic valve not well visualized. No evidence of hemodynamically significant aortic stenosis by Doppler. Peak gradient of 12.0 mmHg. Mean gradient of 6.0 mmHg. Valve area of 2.1 cm2. Tricuspid Valve: Tricuspid valve not well visualized. Right ventricular systolic pressure could not be estimated due to inadequate visualization of the tricuspid regurgitation jet. Pulmonic Valve: Pulmonic valve not well visualized. Pericardium: Pericardium not well visualized. Aorta: Aortic root not well visualized. No aortic root dilation. IVC: The IVC is not well visualized. Conclusions: Normal left ventricular systolic function. No [...] rhythm. Technically difficult study with limited views. Electronically Signed By: Tamica Sotomayor MD 2019-04-06 16:59:29 CDT Procedure Note Param Sotomayor MD - 04/06/2019 [facility] [address], [place] [address] [address], [place] [address] P:[phone] P:[phone] Echocardiographic Report Patient Name: Rene BUCHANAN ID: [id number] : [id number] Date: 04/06/2019 2:34:02 PM Gender: FAccession #: [id number] Tech: GMLocation: [place] Ref.Provider: Ameight(Cm): 165 BSA: 1.97Weight(Kg): 89.36 Heart Rate: 80BP: 139/84 Quality: Definity contrast agent used to enhance endocardial borderdefinitionOrder Provider: MARITA COWAN Procedures: Echocardiographic Report: Transthoracic echocardiogram with complete 2D, M-Mode, color Dopplerexamination and Definity contrast. Indications: Cardiomegaly, Dizziness, Shortness of breath, and Syncope. Measurements: 2D/M Mode Doppler Measurement Value Normal Range MeasurementValue Normal Range EF Mod 70 AVA2.10 [ 2.00 - 4.00 ] cm2 EF MM 68 [ 55 - 70 ] % AV Mean PG 6mmHg LVIDd MM 3.17 [ 3.90 - 5.30 ] cm AV Peak Vel1.76 m/s LVIDs MM 2.00 [ 2.30 - 3.90 ] cm AV Peak PG 12mmHg LVPWd MM 1.17 [ 0.60 - 1.00 ] cm AV VTI0.37 cm IVSd MM 1.17 [ 0.60 - 0.90 ] cm LVOT Diam2.01 [ 1.70 - 2.10 ] cm LA Dimension MM 3.83 [ 2.70 - 3.80 ] cm LVOT Peak Vel1.16 [ 0.70 - 1.10 ] m/s AoR Diam MM 2.83 [ 2.60 - 3.70 ] cm LVOT VTI0.26 cm LA Volume Index 13.00 [ 16.00 - 28.00 ] cc/m2 MV E Peak Vel0.52 [ 0.60 - 1.30 ] m/s ACS MM 1.42 cm MV A Peak Vel0.84 [ 0.40 - 0.80 ] m/s MV Decel [id number] [ 150 - 200 ] msec PV Peak Vel0.86 [ 0.40 - 0.80 ] m/s E'0.08 E/E' 6 Findings: Interpretation Site: Exam was interpreted at [facility]. Left Ventricle: Normal left ventricular systolic function. No focal wall motionabnormalities. Normal left ventricular size. Definity contrast agent used to visually enhanceendocardial wall motion and contractility. Lot Number: [id number]. Mild concentric leftventricular hypertrophy. Impaired diastolic relaxation Grade I. Ejection fraction isvisually estimated at 70-75 %. Right Ventricle: Normal right ventricular size. Normal right ventricular systolicfunction. Left Atrium: The left atrium is normal in size. Right Atrium: The right atrium is normal in size. Atrial Septum: The atrial septum is not well visualized. Mitral Valve: Mitral valve is not well visualized. Trivial regurgitation of the mitralvalve. Aortic Valve: Aortic valve not well visualized. No evidence of hemodynamicallysignificant aortic stenosis by Doppler. Peak gradient of 12.0 mmHg. Mean gradient of 6.0mmHg. Valve area of 2.1 cm2. Tricuspid Valve: Tricuspid valve not well visualized. Right ventricular systolic pressurecould not be estimated due to inadequate visualization of the tricuspid regurgitationjet. Pulmonic Valve: Pulmonic valve not well visualized. Pericardium: Pericardium not well visualized. Aorta: Aortic root not well visualized. No aortic root dilation. IVC: The IVC is not well visualized. Conclusions: Normal left ventricular systolic function. No focal wall motionabnormalities. Normal left ventricular size. Definity contrast agent used to visually enhanceendocardial wall motion and contractility. Lot Number: [id number]. Mild concentric leftventricular hypertrophy. Impaired diastolic relaxation Grade I. Ejection fraction isvisually estimated at 70-75 %. Aortic valve not well visualized. No evidence of hemodynamicallysignificant aortic stenosis by Doppler. Peak gradient of 12.0 mmHg. Mean gradient of 6.0mmHg. Valve area of 2.1 cm2. Normal sinus rhythm. Technically difficult study with limited views. Electronically Signed By: Tamica Sotomayor MD 2019-04-06 16:59:29 CDT us Marita Cowan MD CV ECHO PROCEDURES Final Result documented in this encounter Visit Diagnoses Diagnosis Postural dizziness with near syncope Shortness of breath documented in this encounter Administered Medications Inactive Administered Medications - up to 3 most recent administrations Medication Order MAR Action Action Date Dose Rate Site perflutren lipid (DEFINITY) 1.5 mL in sodium chloride 0.9% 10 mL syringe 1-10 mL, intravenous, Once in imaging, contrast, Starting on Tue04/06/19 at 1525, For 1 dose Given 04/06/2019 3:48 PM CDT 1 mL Right Antecubital documented in this encounter Orders Medications Ordered That Ben ht Not Have Been Administered Count Last Ordered Date First Ordered Date perflutren lipid (DEFINITY) 1.5 mL in sodium chloride 0.9% 10 mL syringe 1 04/06/2019 documented in this encounter Care Teams Driver Lifter Of Sanitation Truck Relationship Specialty Start Date End Date Marita Cowan MD [address] [place] [address] PCP - General 10/01/16 documented as of this encounter
--- OUTSIDE RECORDS SUMMARY | 2024-07-07 17:20 | XMS_ITS | Encounter Summary ---
Author Organization [facility] Medical Group Address [address] [place] [id number] Care Team Providers Care Metallurgical Engineering Technician Name Role Phone Warren Cowan MD Primary Care Prov ider Reason for Visit * Cardiology (Routine) - Canceled Specialty Diagnoses / Procedures Referred By Contloretta t Referred To Contact Diagnoses Syncope and collapse Procedures DEVICE CHECK - REMOTE Param Sotomayor MD Phone: tel: fax: Referral ID Status Reason Start Date Expiration Date V isits Requested Visits Authorized [id number] Canceled 02/18/2017 08/17/2017 1 1 Encounter Details Date Type Department Care Team (Latest Contact Info) Description 03/21/2017 10:30 AM CDT Ancillary Procedure [facility] Medical [facility] Cardiology [address] [place] [phone] Syncope and collapse; Status post placement of implantable loop recorder Social History Tobacco Use Types Packs/Day Years Used Date Smoking Tobacco: Former Smokeless Tobacco: Never Alcohol Use Standard Drinks/Week Comments No 0 (1 standard drink = 0.6 oz pur e alcohol) Comments Unknown Sex and Gender Information Value Date Recorded Sex Assigned at Not on file 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 Gender Identity Not on file Sexual Orientation Not on file documented as of this encounter Plan of Treatment Pending Results Name Type Priority Associated Diagnoses Date /Time DEVICE CHECK - REMOTE Cardiac Services Routine Syncope and collapse 03/28/2017 7:41 AM CDT documented as of this encounter Visit Diagnoses Diagnosis Syncope and collapse Status post placement of implantable loop recorder documented in this encounter Care Teams Metallurgical Engineering Technician Relationship Specialty Start Date End Date Warren Cowan MD [address] [place] [address] PCP - General 10/01/16 documented as of this encounter
--- OUTSIDE RECORDS SUMMARY | 2024-07-07 17:20 | XMS_ITS | Encounter Summary ---
Author Organization [facility] Medical Group Address [address] [place] [address] Care Team Providers Care Rigger Supervisor Name Role Phone Warren Cowan MD Primary Care Prov ider Reason for Visit * Cardiology (Routine) - Canceled Specialty Diagnoses / Procedures Referred By Contloretta t Referred To Contact Diagnoses Syncope and collapse Procedures DEVICE CHECK - REMOTE Param Sotomayor MD Phone: tel: fax: Referral ID Status Reason Start Date Expiration Date V isits Requested Visits Authorized [id number] Canceled 02/18/2017 08/17/2017 1 1 Encounter Details Date Type Department Care Team (Latest Contact Info) Description 09/19/2017 9:30 AM CDT Ancillary Procedure [facility] Medical [facility] Cardiology [address] [place] [phone] Syncope and collapse; Status post placement of implantable loop recorder Social History Tobacco Use Types Packs/Day Years Used Date Smoking Tobacco: Former Smokeless Tobacco: Never Alcohol Use Standard Drinks/Week Comments No 0 (1 standard drink = 0.6 oz pur e alcohol) Comments Unknown Sex and Gender Information Value Date Recorded Sex Assigned at Not on file 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
--- OUTSIDE RECORDS SUMMARY | 2024-07-07 17:20 | XMS_ITS | Encounter Summary ---
Author Organization [facility] Medical Group Address [address] [place] [address] Care Team Providers Care Lens Mold Setter Name Role Phone Warren Cowan MD Primary Care Prov ider Encounter Details Date Type Department Care Team (Late st Contact Info) Description 11/08/2019 Telephone [facility] Medical Group Cardiology [address] [place] [address] Param Sotomayor MD [address] [facility] [address] [place] [address] Social History Tobacco Use Types Packs/Day Years Used Date Smoking Tobacco: Former Smokeless Tobacco: Never Alcohol Use Standard Drinks/Week Comments No 0 (1 standard drink = 0.6 oz pur e alcohol) Comments Unknown Sex and Gender Information Value Date Recorded Sex Assigned at Not on file Legal Sex Female 3:[address]ER Gender Identity Not on file Sexual Orientation Not on file documented as of this encounter Miscellaneous Notes * Telephone Encounter - Jackelyn Graham RN - 11/09/2019 10:48 AM CDT Pts called back and said pt just saw tube wrapper today and was told she has too many red blood cells and pt will have to have some of them removed. Pt requesting to cancel LINQ removal at this time and will call back when all of her other issues are taken care of to reschedule. Procedure cancelled. Will forward on to AD as FYI. * Telephone Encounter - Jackelyn Graham RN - 11/09/2019 10:28 AM CDT Attempted callback and line is busy. * Telephone Encounter - Suzanne Gutirerez - 11/09/2019 10:10 AM CDT Pt's spouse called back to speak with Jackelyn MICHEL in regards to pt surgery. * Telephone Encounter - Jackelyn Graham RN - 11/08/2019 4:30 PM CDT LM on pt VM to discuss rescheduling her LINQ removal to 11/26 @ 0800. Awaiting callback. documented in this encounter Plan of Treatment Not on file documented as of this encounter Visit Diagnoses Not on filedocumented in this encounter Care Teams Lens Mold Setter Relationship Specialty Start Date End Date Warren Cowan MD [address] [place] [address] PCP - General 10/01/16 documented as of this encounter
--- OUTSIDE RECORDS SUMMARY | 2024-07-07 17:20 | XMS_ITS | Encounter Summary ---
Author Organization [facility] Address [address] [place] [address] Care Team Providers Care Pricing Actuary Name Role Phone Warren Cowan MD Primary Care Prov ider Reason for Visit * Reason Comments Follow-up 6 mo follow up on pa lps Encounter Details Date Type Department Care Team (Late st Contact Info) Description 09/16/2017 1:30 PM CDT Office Visit [facility] [address] [place] [address] Param Sotomayor MD [address] [place] [address] Syncope and collapse (Primary Dx); Recurrent falls; Seizure disorder (CMS/HCC); Status post placement of implantable loop recorder; Multiple sclerosis (CMS/HCC); Systemic lupus erythematosus-related syndrome (CMS/HCC); Lipid screening Social History Tobacco Use Types Packs/Day Years Used Date Smoking Tobacco: Former Smokeless Tobacco: Never Alcohol Use Standard Drinks/Week Comments No 0 (1 standard drink = 0.6 oz pur e alcohol) Comments Unknown Sex and Gender Information Value Date Recorded Sex Assigned at Not on file 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 Gender Identity Not on file Sexual Orientation Not on file documented as of this encounter Last Filed Vital Signs Vital Sign Reading Time Taken Comments Blood Pressure 118/72 09/16/2017 1:30 PM CDT Pulse 61 09/16/2017 1:30 PM CDT Temperature - - Respiratory Rate - - Oxygen Saturation 97% 09/16/2017 1:30 PM CDT Inhaled Oxygen Concentration - - Weight 94.8 kg (209 lb) 09/16/2017 1:30 PM CDT Height 165.1 cm (5' 5 ) 09/16/2017 1:30 PM CDT Body Mass Index 34.78 09/16/2017 1:30 PM CDT documented in this encounter Progress Notes * Param Sotomayor MD - 09/16/2017 1:30 PM CDT [facility] DATE OF VISIT: 09/16/2017 CHIEF COMPLAINT Chief Complaint Patient presents with ??? Follow-up 6 mo follow up on palps HPI Allie Buchanan is a 52 y.o. female with a PMHx of recurrent [...] reveal diagnosis. Had an appointment with an city routeman who canceled her appointment she states. Patient's [...] Grieving the loss of her son 05/2017. MEDICAL HISTORY Past Medical History: Diagnosis Date ??? Lupus erythematosus Lupus; Comments: [facility] 03/04/2015 - ??? Multiple sclerosis ([facility] [place]; Comments: [facility] 03/04/2015 - Social History Substance Use Topics ??? Smoking status: Former Smoker ??? Smokeless tobacco: Never Used ??? Alcohol use No Family History Problem Relation Age of Onset ??? Heart disease Father Heart disease; ??? Stroke Father Stroke; ??? Heart disease Mother Heart disease; ??? Stroke Mother Stroke; ??? Stroke Brother Stroke; MEDICATIONS HOME MEDICATIONS : ALPRAZolam (XANAX) 0.25 mg tablet amitriptyline (ELAVIL) 25 mg tablet atorvastatin (LIPITOR) 20 mg tablet calcium carbonate (CALCIUM 500) 1,250 MG (500 mg of elemental calcium) tablet cholecalciferol (cholecalciferol) 400 unit tablet diphenhydrAMINE (BENADRYL) 50 mg tablet docusate sodium (STOOL SOFTENER) 100 mg capsule fludrocortisone 0.1 mg tablet folic acid (FOLVITE) 1 mg tablet HYDROcodone-acetaminophen (NORCO) 5-325 mg per tablet levETIRAcetam (KEPPRA) 500 mg tablet meclizine (ANTIVERT) 25 mg tablet melatonin tablet metaxalone (SKELAXIN) 800 mg tablet methylPREDNISolone (MEDROL) 4 mg tablet milnacipran (SAVELLA) 50 mg tablet omeprazole (PriLOSEC) 20 mg capsule pilocarpine (SALAGEN) 5 mg tablet pregabalin (LYRICA) 150 mg capsule psyllium seed, sugar, (METAMUCIL, SUGAR,) powder sertraline (ZOLOFT) 100 mg tablet solifenacin (VESICARE) 5 mg tablet doxycycline (ADOXA) 100 mg tablet ferrous sulfate (IRON) 325 mg (65 mg of elemental iron) tablet nitrofurantoin monohydrate (MACROBID) 100 mg capsule phenazopyridine (PYRIDIUM) 100 mg tablet methylPREDNISolone (MEDROL) 4 mg tablet ALLERGIES No Known Allergies REVIEW OF SYSTEMS Review of Systems Constitution: Negative for decreased appetite, diaphoresis, fever, weakness, malaise/fatigue and night sweats. HENT: Negative for hearing loss and nosebleeds. Eyes: Negative for blurred vision and pain. Cardiovascular: Positive for chest pain, dyspnea on exertion, irregular heartbeat, near-syncope, palpitations and syncope. Negative for claudication, leg swelling and orthopnea. Respiratory: Negative for cough, hemoptysis, shortness of [...] dysuria, hematuria and nocturia. Neurological: Positive for dizziness and seizures. Negative for excessive daytime sleepiness, focalweakness, headaches, light-headedness and loss of balance. Psychiatric/Behavioral: Negative for altered mental status, depression and memory loss. The patientis not nervous/anxious. Allergic/Immunologic: Negative for environmental allergies. PHYSICAL EXAM Vitals: 09/16/17 1330 BP: 118/72 Pulse: 61 SpO2: 97% Weight: 94.8 kg (209 lb) Height: 165.1 cm (5' 5 ) Body mass index is 34.78 kg/m??. Physical Exam Constitutional: She is oriented [...] distension and no mass. There is no tenderness. There is no rebound and no guarding. Obese Very tender to palpation with guarding over lower aspect of costophrenic margin. Musculoskeletal: Normal range of motion. She exhibits no edema, tenderness or deformity. Wheeled walker Lymphadenopathy: She has no cervical [...] Judgment normal. LABS AND OTHER DIAGNOSTIC TESTS Office Visit on 09/16/2017 Component Date Value Ref Range Status ??? Cholesterol, POC 09/16/2017 255 mg/dL Final ??? HDL, POC 09/16/2017 55 mg/dL Final ??? Triglycerides, POC 09/16/2017 367 mg/dL Final ??? LDL, Direct, POC 09/16/2017 127 mg/dL Final ??? Chol/HDL Ratio, POC 09/16/2017 4.7 Final ??? Non-HDL Cholesterol, POC 09/16/2017 201 mg/dL Final ??? Cholesterol Total, POC 09/16/2017 255 mg/dL Final Personally reviewed EKG, Echocardiogram, and bloodwork/lipids. Loop recorder interrogations personally reviewed. ASSESSMENT Diagnoses and all orders for this visit: Syncope and collapse (Primary) Recurrent falls Seizure disorder (CMS/HCC) Status post placement of implantable loop recorder Multiple sclerosis (CMS/HCC) Systemic lupus erythematosus-related syndrome (CMS/HCC) Lipid screening - POCT lipid panel PLAN/RECOMMENDATIONS 1. Monitor BP on routine basis. Call with readings. Continue consistent cardiovascular exercise, weight loss, medication compliance, and low-sodium diet. 2. Monitor sxs and recurrence on antiepileptic therapy. Follow up with Neurology as scheduled. Continue fludrocortisone for now although loss of consciousness episodes appear to correlate with loss of significant time and confusion more consistent with seizure and post-ictal state by pt description. Plan to stop fludrocortisone as BP stable and no syncope clinically assoc with hypotension. 3. Ambulate with caution. Rise slowly from a seated position. Monitor symptoms closely. Avoid dehydration. 4. No arrhythmias noted on device interrogation. 5. Lifestyle modification counseling performed. Weight loss, exercise, reduction in caloric intake. 6. Contact office with recurrent episodes and for further recommendations. Over 50% of this visit counseling syncope, loop recorder, HTN, lipids, medications, lifestyle modification. 25 minutes spent with patient. Follow up in the office in 6 months Thank you for allowing me the privilege of participating in the care this very pleasant patient. Please do not hesitate to contact me with any additional questions or concerns. Tamica Sotomayor MD, [facility] documented in this encounter Plan of Treatment Not on file documented as of this encounter Procedures Procedure Name Priority Date/Time Associated Diagnosis Comments POCT LIPID PANEL Routine 09/16/2017 1:40 PM CDT Lipid screening documented in this encounter Results * POCT lipid panel (09/16/2017 1:40 PM CDT) Cholesterol, POC 255 mg/dL HDL, POC 55 mg/dL Triglycerides, POC 367 mg/dL LDL Cholesterol POC 127 mg/dL Chol/HDL Ratio, POC 4.7 Non-HDL Cholesterol, POC 201 mg/dL Cholesterol Total, POC 255 mg/dL Blood specimen (specimen) 09/16/2017 1:40 PM CDT Param Sotomayor MD POINT OF CARE TEST ORDER OPAL Final Result documented in this encounter Visit Diagnoses Diagnosis Syncope and collapse- Primary Recurrent falls Seizure disorder (CMS/HCC) (HCC) Unspecified epilepsy without mention of intractable epilepsy Status post placement of implantable loop recorder Multiple sclerosis (HCC) Multiple sclerosis Systemic lupus erythematosus-related syndrome (CMS/HCC) (HCC) Systemic lupus erythematosus Lipid screening Screening for lipoid disorders documented in this encounter Discontinued Medications Medication Sig Discontinue Reason Start Date End Da te methylPREDNISolone (MEDROL) 4 mg tablet take 1 tablet by oral route every day with food Duplicate order 08/30/2016 09/16/2017 documented as of this encounter Historical Medications * This list may reflect changes made after this encounter. diphenhydrAMINE (BENADRYL) 50 mg tablet Take 50 mg by mouth nightly as needed for itching. 03/24/2018 added in this encounter Care Teams Pricing Actuary Relationship Specialty Start Date End Date Warren Cowan MD [address] [place] [address] PCP - General 10/01/16 documented as of this encounter
--- OUTSIDE RECORDS SUMMARY | 2024-07-07 17:20 | XMS_ITS | Encounter Summary ---
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
--- OUTSIDE RECORDS SUMMARY | 2024-07-07 17:20 | XMS_ITS | Encounter Summary ---
Author Organization [facility] Medical [facility] Address [address] [place] [id number] Care Team Providers Care Drill Press Operator For Metal Name Role Phone Warren Cowan MD Primary Care Prov ider Reason for Visit * Cardiology (Routine) - Canceled Specialty Diagnoses / Procedures Referred By Contloretta t Referred To Contact Diagnoses Syncope and collapse Procedures DEVICE CHECK - REMOTE Param Sotomayor MD Phone: tel: fax: Referral ID Status Reason Start Date Expiration Date V isits Requested Visits Authorized [id number] Canceled 02/18/2017 08/17/2017 1 1 Encounter Details Date Type Department Care Team (Latest Contact Info) Description 10/31/2017 9:30 AM CDT Ancillary Procedure [facility] Medical [facility] Cardiology [address] [place] [phone] Syncope and collapse; Status post placement of implantable loop recorder Social History Tobacco Use Types Packs/Day Years Used Date Smoking Tobacco: Former Smokeless Tobacco: Never Alcohol Use Standard Drinks/Week Comments No 0 (1 standard drink = 0.6 oz pur e alcohol) Comments Unknown Sex and Gender Information Value Date Recorded Sex Assigned at Not on file 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 Gender Identity Not on file Sexual Orientation Not on file documented as of this encounter Plan of Treatment Pending Results Name Type Priority Associated Diagnoses Date /Time DEVICE CHECK - REMOTE Cardiac Services Routine Syncope and collapse 11/17/2017 12:09 PM CDT documented as of this encounter Visit Diagnoses Diagnosis Syncope and collapse Status post placement of implantable loop recorder documented in this encounter Care Teams Drill Press Operator For Metal Relationship Specialty Start Date End Date Warren Cowan MD [address] [place] [address] PCP - General 10/01/16 documented as of this encounter
--- OUTSIDE RECORDS SUMMARY | 2024-07-07 17:20 | XMS_ITS | Encounter Summary ---
Author Organization [facility] Address [address] [place] [address] Care Team Providers Care Engine Assembler Name Role Phone Warren Cwoan MD Primary Care Prov ider Reason for Visit * (Routine) - Canceled Specialty Diagnoses / Procedures Referred By Contac t Referred To Contact Diagnoses Syncope and collapse Procedures DEVICE CHECK - REMOTE Param Sotomayor MD Phone: tel: fax: Referral ID Status Reason Start Date Expiration Date V isits Requested Visits Authorized [id number] Canceled 12/10/2017 06/08/2018 1 1 Encounter Details Date Type Department Care Team (Latest Contact Info) Description 01/23/2018 7:30 AM CDT Ancillary Procedure [facility] Cardiology [address] [phone] Syncope and collapse; Status post placement of implantable loop recorder Social History Tobacco Use Types Packs/Day Years Used Date Smoking Tobacco: Former Smokeless Tobacco: Never Alcohol Use Standard Drinks/Week Comments No 0 (1 standard drink = 0.6 oz pur e alcohol) Comments Unknown Sex and Gender Information Value Date Recorded Sex Assigned at Not on file 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
--- OUTSIDE RECORDS SUMMARY | 2024-07-07 17:20 | XMS_ITS | Encounter Summary ---
Author Organization [facility] Address [address] [place] [address] Care Team Providers Care Collections Attorney Name Role Phone Warren Cowan MD Primary Care Prov ider Encounter Details Date Type Department Care Team (Late st Contact Info) Description 03/21/2019 Orders Only [facility] [address] [place] [address] ProviderRavi MD [address] [place] [phone] Social History Tobacco Use Types Packs/Day Years Used Date Smoking Tobacco: Former Smokeless Tobacco: Never Alcohol Use Standard Drinks/Week Comments No 0 (1 standard drink = 0.6 oz pur e alcohol) Comments Unknown Sex and Gender Information Value Date Recorded Sex Assigned at Not on file 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 Gender Identity Not on file Sexual Orientation Not on file documented as of this encounter Plan of Treatment Not on file documented as of this encounter Procedures Procedure Name Priority Date/Time Associated Diagnosis Comments CARDIOLOGY DOCUMENT SCAN Routine 03/20/2019 documented in this encounter Results * SCAN - CARDIOLOGY (03/20/2019) Anatomical Region Laterality Modality Other Historical Provider CV CARDIAC SERVICES FAVIAN VALDEZ Final Result documented in this encounter Visit Diagnoses Not on filedocumented in this encounter Care Teams Collections Attorney Relationship Specialty Start Date End Date Warren Cowan MD [address] [place] [address] PCP - General 10/01/16 documented as of this encounter
--- OUTSIDE RECORDS SUMMARY | 2024-07-07 17:20 | XMS_ITS | Encounter Summary ---
Author Organization [facility] Address [address] [facility] [address] [facility] [address] [place] [address] Care Team Providers Care Banquet Set Up Person Name Role Phone Warren Cowan MD Primary Care Prov ider Reason for Visit * Cardiology (Routine) - Canceled Specialty Diagnoses / Procedures Referred By Contloretta t Referred To Contact Diagnoses Syncope and collapse Procedures DEVICE CHECK - REMOTE Param Sotomayor MD Phone: tel: fax: Referral ID Status Reason Start Date Expiration Date V isits Requested Visits Authorized [id number] Canceled 02/18/2017 08/17/2017 1 1 Encounter Details Date Type Department Care Team (Latest Contact Info) Description 12/12/2017 9:30 AM CDT Ancillary Procedure [facility] Medical 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
--- OUTSIDE RECORDS SUMMARY | 2024-07-07 17:20 | XMS_ITS | Encounter Summary ---
Author Organization [facility] Address [address] [place] [address] Care Team Providers Care Classics Teacher Name Role Phone Warren Cowan MD Primary Care Prov ider Reason for Visit * Reason Comments Follow-up 6 mo follow up on sy ncope Encounter Details Date Type Department Care Team (Late st Contact Info) Description 03/24/2018 1:30 PM CDT Office Visit [facility] [address] [address] [address] [place] [address] Param Sotomayor MD [id number] [place] [address] Syncope and collapse (Primary Dx); Other chest pain; Palpitations; Recurrent falls; Status post placement of implantable loop recorder; Systemic lupus erythematosus-related syndrome (CMS/HCC); Multiple sclerosis (CMS/HCC) Social History Tobacco Use Types Packs/Day Years Used Date Smoking Tobacco: Former Smokeless Tobacco: Never Alcohol Use Standard Drinks/Week Comments No 0 (1 standard drink = 0.6 oz pur e alcohol) Comments Unknown Sex and Gender Information Value Date Recorded Sex Assigned at Not on file 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 Gender Identity Not on file Sexual Orientation Not on file documented as of this encounter Last Filed Vital Signs Vital Sign Reading Time Taken Comments Blood Pressure 118/72 03/24/2018 1:35 PM CDT Pulse 79 03/24/2018 1:35 PM CDT Temperature - - Respiratory Rate - - Oxygen Saturation 94% 03/24/2018 1:35 PM CDT Inhaled Oxygen Concentration - - Weight 89.4 kg (197 lb) 03/24/2018 1:35 PM CDT Height 165.1 cm (5' 5 ) 03/24/2018 1:35 PM CDT Body Mass Index 32.78 03/24/2018 1:35 PM CDT documented in this encounter Progress Notes * Param Sotomayor MD - 03/24/2018 1:30 PM CDT [facility] DATE OF VISIT: 03/24/2018 CHIEF COMPLAINT Chief Complaint Patient presents with ??? Follow-up 6 mo follow up on syncope HPI Allie Buchanan is a 52 y.o. [...] reveal diagnosis. Had an appointment with an tool room machinist who canceled her appointment she states. Patient's [...] real dizziness. No seizures. No palpitations either. MEDICAL HISTORY Past Medical History: Diagnosis Date ??? Lupus erythematosus Lupus; Comments: [facility] 03/04/2015 - ??? Multiple sclerosis (CMS/HCC) MS; Comments: [facility] 03/04/2015 - Social History Substance Use Topics [...] mg tablet solifenacin (VESICARE) 5 mg tablet ALPRAZolam (XANAX) 0.25 mg tablet cholecalciferol (cholecalciferol) 400 unit tablet diphenhydrAMINE (BENADRYL) 50 mg tablet doxycycline (ADOXA) 100 mg tablet ferrous sulfate (IRON) 325 mg (65 mg of elemental iron) tablet meclizine (ANTIVERT) 25 mg tablet melatonin tablet nitrofurantoin monohydrate (MACROBID) 100 mg capsule phenazopyridine (PYRIDIUM) 100 mg tablet ALLERGIES No Known Allergies REVIEW OF SYSTEMS Review of Systems Constitution: Positive for weight loss. Negative for decreased appetite, diaphoresis, fever, weakness, [...] for environmental allergies. PHYSICAL EXAM Vitals BP 118/72 (BP Location: Right arm, Patient Position: Sitting) Pulse 79 Ht 165.1 cm (5' 5 ) Wt 89.4 kg (197 lb) SpO2 94% BMI 32.78 kg/m?? Weight: 89.4 kg (197 lb) Height: 165.1 cm (5' 5 ) Body mass index is 32.78 kg/m??. Physical Exam Constitutional: She is oriented [...] no guarding. Musculoskeletal: Normal range of motion. She exhibits [...] for this visit: Syncope and collapse (Primary) Other chest pain Palpitations Recurrent falls Status post placement of implantable loop recorder Systemic lupus erythematosus-related syndrome (CMS/HCC) Multiple sclerosis (CMS/HCC) PLAN/RECOMMENDATIONS 1. BP controlled. Monitor BP on routine basis. Call with readings. Continue consistent cardiovascular exercise, weight loss, medication compliance, and low- sodium diet. 2. Monitor seizure recurrence on antiepileptic therapy. Follow up with [...] Avoid dehydration. 4. No arrhythmias noted on loop recorder device interrogation. Personally reviewed loop recorders no arrhythmias to date. Discussed explantation if she desires but she prefers to continue monitoring as long as device able. 5. Lifestyle modification counseling performed. Weight loss, exercise, reduction in caloric intake. 6. Contact office with recurrent episodes and for further recommendations. Over 50% of this visit counseling syncope, loop recorder, HTN, lipids, medications, lifestyle modification. Follow up in the office in 1 year or sooner as needed. Thank you for allowing me the privilege of participating in the care this very pleasant patient. Please do not hesitate to contact me with any additional questions or concerns. Tamica Sotomayor MD, [facility] documented in this encounter Plan of Treatment Not on file documented as of this encounter Visit Diagnoses Diagnosis Syncope and collapse- Primary Other chest pain Palpitations Recurrent falls Status post placement of implantable loop recorder Systemic lupus erythematosus-related syndrome (CMS/HCC) (HCC) Systemic lupus erythematosus Multiple sclerosis (HCC) Multiple sclerosis documented in this encounter Discontinued Medications Medication Sig Discontinue Reason Start Date End Da te ALPRAZolam (XANAX) 0.25 mg tablet take 1 tablet by oral route every day Discontinued by another clinician 03/04/2015 03/24/2018 cholecalciferol (cholecalciferol) 400 unit tablet take 1 by Oral route once Discontinued by another clinician 03/04/2015 03/24/2018 diphenhydrAMINE (BENADRYL) 50 mg tablet Take 50 mg by mouth nightly as needed for itching. Discontinued by another clinician 03/24/2018 doxycycline (ADOXA) 100 mg tablet Take 100 mg by mouth daily. Discontinued by another clinician 03/24/2018 ferrous sulfate (IRON) 325 mg (65 mg of elemental iron) tablet take 1 tablet by ORAL route every day Discontinued by another clinician 03/04/2015 03/24/2018 meclizine (ANTIVERT) 25 mg tablet take 1 tablet by oral route 3 times every day as needed Discontinued by another clinician 03/04/2015 03/24/2018 melatonin tablet 3 mg. Discontinued by another clinician 08/30/2016 03/24/2018 nitrofurantoin monohydrate (MACROBID) 100 mg capsule take 1 capsule by oral route every 12 hours with food Discontinued by another clinician 08/30/2016 03/24/2018 phenazopyridine (PYRIDIUM) 100 mg tablet take 2 tablet by oral route 3 times every day after meals as needed Discontinued by another clinician 08/30/2016 03/24/2018 documented as of this encounter Historical Medications * This list may reflect changes made after this encounter. LORazepam (ATIVAN) 1 mg tablet Take 1 mg by mouth every 6 (six) hours as needed for anxiety. propranolol (INDERAL) 20 mg tablet Take 20 mg by mouth 2 (two) times a day. added in this encounter Care Teams Classics Teacher Relationship Specialty Start Date End Date Warren Cowan MD [address] [place] [address] PCP - General 10/01/16 documented as of this encounter
--- OUTSIDE RECORDS SUMMARY | 2024-07-07 17:20 | XMS_ITS | Encounter Summary ---
Author Organization [facility] Medical [facility] Address [address] [place] [address] Care Team Providers Care Distributor Advertising Material Name Role Phone Warren Cowan MD Primary Care Prov ider Reason for Visit * Cardiology (Routine) - Canceled Specialty Diagnoses / Procedures Referred By Contloretta t Referred To Contact Diagnoses Syncope and collapse Procedures DEVICE CHECK - REMOTE Param Sotomayor MD Phone: tel: fax: Referral ID Status Reason Start Date Expiration Date V isits Requested Visits Authorized [id number] Canceled 12/17/2016 06/15/2017 1 1 Encounter Details Date Type Department Care Team (Latest Contact Info) Description 08/08/2017 7: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 Gender Identity Not on file Sexual Orientation Not on file documented as of this encounter Plan of Treatment Pending Results Name Type Priority Associated Diagnoses Date /Time DEVICE CHECK - REMOTE Cardiac Services Routine Syncope and collapse 08/15/2017 9:24 AM VOCATIONAL SCHOOL TEACHER documented as of this encounter Visit Diagnoses Diagnosis Syncope and collapse Status post placement of implantable loop recorder documented in this encounter Care Teams Distributor Advertising Material Relationship Specialty Start Date End Date Warren Cowan MD [address] [place] [address] PCP - General 10/01/16 documented as of this encounter
--- OUTSIDE RECORDS SUMMARY | 2024-07-07 17:20 | XMS_ITS | Encounter Summary ---
Author Organization [facility] Address [address] [place] [address] Care Team Providers Care Senior Consumer Insights Consultant Name Role Phone Warren Cowan MD Primary Care Prov ider Encounter Details Date Type Department Care Team (Late st Contact Info) Description 09/07/2019 Telephone [facility] Cardiology [address] [place] [address] Param Sotomayor MD [address] [facility] [address] [place], [place] [id number] Social History Tobacco Use Types Packs/Day Years Used Date Smoking Tobacco: Former Smokeless Tobacco: Never Alcohol Use Standard Drinks/Week Comments No 0 (1 standard drink = 0.6 oz pur e alcohol) Comments Unknown Sex and Gender Information Value Date Recorded Sex Assigned at Not on file Legal Sex Female 3:44 AM MATERIAL DAMAGE APPRAISER Gender Identity Not on file Sexual Orientation Not on file documented as of this encounter Miscellaneous Notes * Telephone Encounter - Alberta Kumar RN - 09/07/2019 9:04 AM CST Linq removal rescheduled for 09/27 at 0830. Pt aware and preop instructions reviewed. RIAL DAMAGE APPRAISER documented in this encounter Plan of Treatment Not on file documented as of this encounter Visit Diagnoses Not on filedocumented in this encounter Care Teams Senior Consumer Insights Consultant Relationship Specialty Start Date End Date Warren Cowan MD [address] [place] [address] PCP - General 10/01/16 documented as of this encounter
--- OUTSIDE RECORDS SUMMARY | 2024-07-07 17:20 | XMS_ITS | Clinical Summary ---
Author Organization [facility] [address] Address [address] [place] [address] Care Team Providers Care Brick Tender Name Role Phone Warren Cowan MD Primary Care Prov ider Allergies No known active allergies Medications docusate sodium (STOOL SOFTENER) 100 mg capsule take 2 tablet by oral route every day at bedtime as needed 0 0 08/04/2015 Active methylPREDNISol one (MEDROL) 4 mg tablet take 1 tablet by oral route 2 times every day with food 0 0 08/04/2015 Active psyllium seed, sugar, (METAMUCIL, SUGAR,) powder 0 0 08/04/2015 Active solifenacin (VESICARE) 5 mg tablet take 1 tablet by oral route every day 0 0 08/30/2016 Active folic acid (FOLVITE) 1 mg tablet take 1 tablet by oral route every day 0 0 03/04/2015 Active atorvastatin (LIPITOR) 20 mg tablet take 1 tablet by oral route every day 0 0 03/04/2015 Active pilocarpine (SALAGEN) 5 mg tablet take 1 tablet by oral route 3 times every day 0 0 03/04/2015 Active milnacipran (SAVELLA) 50 mg tablet take 1 (50MG) by oral route 2 times every day 0 0 03/04/2015 Active sertraline (ZOLOFT) 100 mg tablet take 1 Tablet by oral route every day 0 0 03/04/2015 Active omeprazole (PriLOSEC) 20 mg capsule take 1 capsule by oral route every day before a meal 0 0 03/04/2015 Active amitriptyline (ELAVIL) 25 mg tablet take 1 tablet by oral route every day at bedtime 0 0 03/04/2015 Active HYDROcodone-corbin taminophen (NORCO) 5-325 mg per tablet take 1 tablet by oral route every 6 hours as needed for pain 0 0 03/04/2015 Active metaxalone (SKELAXIN) 800 mg tablet take 1 tablet by oral route 3 times every day as needed 0 0 03/04/2015 Active calcium carbonate (CALCIUM 500) 1,250 MG (500 mg of elemental calcium) tablet take 2 by Oral route every day 0 0 08/04/2015 Active pregabalin (LYRICA) 150 mg capsule take 1 capsule by oral route 3 times every day 0 0 08/04/2015 Active levETIRAcetam (KEPPRA) 500 mg tablet Take 500 mg by mouth 2 (two) times a day. Active propranolol (INDERAL) 20 mg tablet Take 20 mg by mouth 2 (two) times a day. Active LORazepam (ATIVAN) 1 mg tablet Take 1 mg by mouth every 6 (six) hours as needed for anxiety. Active topiramate (TOPAMAX) 25 mg tablet Take 25 mg by mouth nightly 08/14/2019 Active Stiolto Respimat 2.5-2.5 mcg/actuation inhaler INHALE 2 PUFFS BY MOUTH DAILY 08/13/2019 Active Active Problems Problem Noted Date Diagnosed Date Seizure disorder ([facility]) 03/09/2017 Near syncope 12/13/2016 Systemic lupus erythematosus-related syndrome Overview (10/08/2016): SLE (systemic lupus erythematosus related syndrome) Status post placement of implantable loop record er 08/04/2015 Overview (02/18/2017): Medtronic reveal implantable loop recorder Dx; Syncope. DOI 03/11/2015. Carelink remote home monitoring Q35-45 days. Candidiasis of esophagus ([facility]) 08/04/2015 Overview (10/08/2016): Candidal esophagitis Syncope and collapse 08/04/2015 Overview (10/08/2016): Syncope and collapse Syncope 03/04/2015 Overview (10/08/2016): Syncope Recurrent falls 03/04/2015 Overview (10/08/2016): Frequent falls Fibrositis 03/04/2015 Overview (10/08/2016): Fibromyalgia SLE glomerulonephritis syndrome (CMS/HCC) 2014 Overview (10/08/2016): Nephritis NOS in other disease Multiple sclerosis 03/04/2015 Overview (10/08/2016): Multiple sclerosis Chest pain 03/04/2015 Overview (10/08/2016): Chest pain Palpitations 03/04/2015 Overview (10/08/2016): Palpitations Surgical History Surgery Date Site/Laterality Comments TONSILLECTOMY Tonsillectomy CHOLECYSTECTOMY Cholecystectomy Medical History Medical History Date Comments Lupus erythematosus Lupus; Comme nts: FRANCY 03/04/2015 - Multiple sclerosis (HCC) MS; Com ments: DEEDEE 03/04/2015 - Family History Medical History Relation Name Comments Stroke Brother Stroke; Heart disease Father Heart disease; Stroke Father Stroke; Heart disease Mother Heart disease; Stroke Mother Stroke; Relation Name Status Comments Brother Father Mother Social History Tobacco Use Types [...] on file Legal Sex Female 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 Gender Identity Not on file Sexual Orientation Not on file Obstetrics History Last Filed Vital Signs Vital Sign Reading Time Taken Comments Blood Pressure 126/76 08/28/2019 2:17 PM GRAPHIC DESIGN INTERN Pulse 64 08/28/2019 2:17 PM GRAPHIC DESIGN INTERN Temperature - - Respiratory Rate 16 03/09/2017 2:37 PM CDT Oxygen Saturation 96% 08/28/2019 2:17 PM GRAPHIC DESIGN INTERN Inhaled Oxygen Concentration - - Weight 96.6 kg (213 lb) 08/28/2019 2:17 PM GRAPHIC DESIGN INTERN Height 165.1 cm (5' 5 ) 08/28/2019 2:17 PM GRAPHIC DESIGN INTERN Body Mass Index 35.45 08/28/2019 2:17 PM GRAPHIC DESIGN INTERN Plan of Treatment Not on file Medical Devices Implanted Type Area Lamp Shade Joiner Device Identifier Shelf Expiration Date Model / Serial / Lot Implantable Loop Recorder Implantable Loop Recorder Chest [employer] Insurance [facility] [id number] Care Teams Brick Tender Relationship Specialty Start Date End Date Warren Cowan MD [address] [place] [address] PCP - General 10/01/16
--- OUTSIDE RECORDS SUMMARY | 2024-07-07 17:20 | XMS_ITS | Encounter Summary ---
Author Organization [facility] Address [address] [place] [address] Care Team Providers Care Film Reader Name Role Phone Warren Cowan MD Primary Care Prov ider Reason for Visit * (Routine) - Canceled Specialty Diagnoses / Procedures Referred By Contac t Referred To Contact Diagnoses Syncope and collapse Procedures DEVICE CHECK - REMOTE Param Sotomayor MD Phone: tel: fax: Referral ID Status Reason Start Date Expiration Date V isits Requested Visits Authorized [id number] Canceled 12/10/2017 06/08/2018 1 1 Encounter Details Date Type Department Care Team (Latest Contact Info) Description 08/22/2018 10:15 AM INTEGRATED MARKETING INTERN Ancillary Procedure [facility] Medical [facility] Cardiology [address] [place] [phone] Syncope and collapse; Status post placement of implantable loop recorder Social History Tobacco Use Types Packs/Day Years Used Date Smoking Tobacco: Former Smokeless Tobacco: Never Alcohol Use Standard Drinks/Week Comments No 0 (1 standard drink = 0.6 oz pur e alcohol) Comments Unknown Sex and Gender Information Value Date Recorded Sex Assigned at Not on file Legal Sex Female 3:44 AM INTEGRATED MARKETING INTERN Gender Identity Not on file Sexual Orientation Not on file documented as of this encounter Plan of Treatment Pending Results Name Type Priority Associated Diagnoses Date /Time DEVICE CHECK - REMOTE Cardiac Services Routine Syncope and collapse 09/05/2018 5:13 PM INTEGRATED MARKETING INTERN documented as of this encounter Visit Diagnoses Diagnosis Syncope and collapse Status post placement of implantable loop recorder documented in this encounter Care Teams Film Reader Relationship Specialty Start Date End Date Warren Cowan MD [address] [place] [address] PCP - General 10/01/16 documented as of this encounter
--- OUTSIDE RECORDS SUMMARY | 2024-07-07 17:20 | XMS_ITS | Continuity of Care Document ---
Author Organization [facility] Address [address] [place] [address] Phone Care Team Providers Care Forest Law And Policy Professor Name Role Phone Jasper Prescott Unavailable Unavailable [...] Copied on Encounter Office/outpat ient Visit, Est [facility], [address] [place] [address] [address], [place], [place], [id number], [place] tel:[phone] [facility] [place] No Information 1-201 0 Krishnasamy Jasper. [address] [facility] [address], [place], [address], [place]. tel:[phone] [facility], [address], [place], [place], [id number], [place] tel:[phone] [facility] [place] No Information 2-200 9 Krishnasamy Jasper. [address] [facility] [address], [place], [place], [facility], [place]. tel:[phone] Referring Provider: Jasper wilson, Critical access hospital1 [facility] [address], [place], [place], [facility]. tel:[phone] [facility], [address], [place], [place], [id number], [place] tel:[phone] SEC [facility] No Information 3-200 9 Krishnasamy Jasper. Critical access hospital1 [facility] [address], [place], [place], [facility], [place]. tel:[phone] [facility], [address] [place] [address] [address], [place], [place], [id number], [place] tel:[phone] [facility] No Information 9-200 9 Carlos OD Chetan. [address] [place] [address] Dr, [address], [place], [place], [facility], [place]. tel:[phone] Office/outpat ient Visit, Est [facility], [address] [place] [address] [address], [place], [place], [id number], [place] tel:[phone] [facility] No Information 4-200 9 Krishnasamy Jasper. [address] [place] [address] [address], [place], [place], [facility], [place]. tel:[phone] [facility], [address] [place] [address] [address], [place], [place], [id number], [place] tel:[phone] [facility] No Information 3-200 9 Krishnasamy Jasper. [address] [place] [address] [address], [place], [place], [facility], [place]. tel:[phone] Office/outpat ient Visit, Est [facility], [address], [place], [place], [id number], [place] tel:[phone] [facility] No Information Dec-0 9-200 8 Krishnasamy Jasper. Critical access hospital[address], [facility], [place]. tel:[phone] Office/outpat ient Visit, [facility], [address] [place] [address] [address], [place], [place], [id number], [place] tel:[phone] [facility] No Information Chava-1 3-200 8 Krishnasamy Jasper. [address] [place] [address], [facility], [place]. tel:[phone] Office/outpat ient Visit, [facility], [address] [place] [address] [address], [place], [place], [id number], tel:[phone] [facility] No Information May-0 2-200 8 Krishnasamy Jasper. [address] [place] [address], [facility], [place]. tel:[phone] Office/outpat ient Visit, [facility], [address] [place] [address] [address], [place], [place], [id number], [place] tel:[phone] [facility] No Information Mar-2 8-200 8 Krishnasamy Japser. [address] [place] [address], [facility], [place]. tel:[phone] [facility], [address] [place] [address] [address], [place], [place], [id number], [place] tel:[phone] [facility] No Information Mar-2 5-200 8 Krishnasamy Jasper. [address] [place] [address], [facility], [place]. tel:[phone] Family History Family Member Type Diagnosis Age [...]
--- OUTSIDE RECORDS SUMMARY | 2024-07-07 17:20 | XMS_ITS | Encounter Summary ---
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
--- OUTSIDE RECORDS SUMMARY | 2024-07-07 17:20 | XMS_ITS | Encounter Summary ---
Author Organization [facility] Address [address] [facility] [address] [place] [address] Care Team Providers Care It Program Engagement Director Name Role Phone Warren Cowan MD Primary Care Prov ider Reason for Visit * (Routine) - Canceled Specialty Diagnoses / Procedures Referred By Contac t Referred To Contact Diagnoses Syncope and collapse Procedures DEVICE CHECK - REMOTE Param Sotomayor MD Phone: tel: fax: Referral ID Status Reason Start Date Expiration Date V isits Requested Visits Authorized [id number] Canceled 12/10/2017 06/08/2018 1 1 Encounter Details Date Type Department Care Team (Latest Contact Info) Description 05/01/2018 8:30 AM CDT Ancillary Procedure [facility] Cardiology [address] [facility] [address] [place] [phone] Syncope and collapse; Status post placement of implantable loop recorder Social History Tobacco Use Types Packs/Day Years Used Date Smoking Tobacco: Former Smokeless Tobacco: Never Alcohol Use Standard Drinks/Week Comments No 0 (1 standard drink = 0.6 oz pur e alcohol) Comments Unknown Sex and Gender Information Value Date Recorded Sex Assigned at Not on file Legal Sex Female 3:44 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 Gender Identity Not on file Sexual Orientation Not on file documented as of this encounter Plan of Treatment Pending Results Name Type Priority Associated Diagnoses Date /Time DEVICE CHECK - REMOTE Cardiac Services Routine Syncope and collapse 05/04/2018 10:55 AM CDT documented as of this encounter Visit Diagnoses Diagnosis Syncope and collapse Status post placement of implantable loop recorder documented in this encounter Care Teams It Program Engagement Director Relationship Specialty Start Date End Date Warren Cowan MD [address] [place] [address] PCP - General 10/01/16 documented as of this encounter
--- OUTSIDE RECORDS SUMMARY | 2024-07-07 17:20 | XMS_ITS | Encounter Summary ---
Author Organization [facility] Address [address] [facility] [address] [place] [address] Care Team Providers Care Hosiery Bagger Name Role Phone Warren Cowan MD Primary Care Prov ider Reason for Visit * Reason Comments Follow-up 3 mo follow up on pa lps Encounter Details Date Type Department Care Team (Late st Contact Info) Description 03/09/2017 2:30 PM CDT Office Visit [facility] [address] [facility] [address] [place] [address] Param Sotomayor MD [id number] [place] [address] Recurrent falls (Primary Dx); Near syncope; Palpitations; Multiple sclerosis (CMS/HCC); Systemic lupus erythematosus-related syndrome (CMS/HCC); Status post placement of implantable loop recorder; Seizure disorder (CMS/HCC) Social History Tobacco Use Types Packs/Day Years Used Date Smoking Tobacco: Former Smokeless Tobacco: Never Alcohol Use Standard Drinks/Week Comments No 0 (1 standard drink = 0.6 oz pur e alcohol) Comments Unknown Sex and Gender Information Value Date Recorded Sex Assigned at Not on file Legal Sex Female 3:44 AM PONDMAN Gender Identity Not on file Sexual Orientation Not on file documented as of this encounter Last Filed Vital Signs Vital Sign Reading Time Taken Comments Blood Pressure 116/84 03/09/2017 2:37 PM CDT Pulse 84 03/09/2017 2:37 PM CDT Temperature - - Respiratory Rate 16 03/09/2017 2:37 PM CDT Oxygen Saturation - - Inhaled Oxygen Concentration - - Weight 97.1 kg (214 lb) 03/09/2017 2:37 PM CDT Height 165.1 cm (5' 5 ) 03/09/2017 2:37 PM CDT Body Mass Index 35.61 03/09/2017 2:37 PM CDT documented in this encounter Progress Notes * Param Sotomayor MD - 03/09/2017 2:30 PM CDT [facility] DATE OF VISIT: 03/09/2017 CHIEF COMPLAINT Chief Complaint Patient presents with ??? Follow-up 3 mo follow up on palps HPI Allie Buchanan is a 51 y.o. female with a PMHx of recurrent [...] reveal diagnosis. Had an appointment with an arabic linguist who canceled her appointment she states. Patient's [...] Feels about the same overall. Nobleeding. +bruises. MEDICAL HISTORY Past Medical History: Diagnosis Date ??? Lupus erythematosus Lupus; Comments: [facility] 03/04/2015 - ??? Multiple sclerosis ([facility]) MS; Comments: [facility] 03/04/2015 - Social History Substance Use Topics [...] calcium) tablet cholecalciferol (cholecalciferol) 400 unit tablet docusate sodium (STOOL SOFTENER) 100 mg capsule doxycycline (ADOXA) 100 mg tablet ferrous sulfate (IRON) 325 mg (65 mg of elemental iron) tablet fludrocortisone 0.1 mg tablet folic acid (FOLVITE) 1 mg tablet HYDROcodone-acetaminophen (NORCO) 5-325 mg per tablet levETIRAcetam (KEPPRA) 500 mg tablet meclizine (ANTIVERT) 25 mg tablet melatonin tablet metaxalone (SKELAXIN) 800 mg tablet methylPREDNISolone (MEDROL) 4 mg tablet methylPREDNISolone (MEDROL) 4 mg tablet milnacipran (SAVELLA) 50 mg tablet nitrofurantoin monohydrate (MACROBID) 100 mg capsule omeprazole (PriLOSEC) 20 mg capsule phenazopyridine (PYRIDIUM) 100 mg tablet pilocarpine (SALAGEN) 5 mg tablet pregabalin (LYRICA) 150 mg capsule psyllium seed, sugar, (METAMUCIL, SUGAR,) powder sertraline (ZOLOFT) 100 mg tablet solifenacin (VESICARE) 5 mg tablet ALLERGIES No Known Allergies REVIEW OF SYSTEMS Review of Systems Constitution: Negative for decreased appetite, diaphoresis, fever, weakness, malaise/fatigue and night sweats. HENT: Negative for headaches, hearing loss and nosebleeds. Eyes: Negative for [...] seizures. Negative for excessive daytime sleepiness, focalweakness, light-headedness and loss of balance. Psychiatric/Behavioral: Negative for altered mental status, depression and memory loss. The patientis not nervous/anxious. Allergic/Immunologic: Negative for environmental allergies. PHYSICAL EXAM Vitals: 03/09/17 1437 BP: 116/84 Pulse: 84 Resp: 16 Weight: 97.1 kg (214 lb) Height: 165.1 cm (5' 5 ) Body mass index is 35.61 kg/m??. Physical Exam Constitutional: She is oriented [...] visit. Latest known visit with results is: No results found for any previous visit. Reviewed EKG, Echocardiogram, stress test, and bloodwork/lipids. Loop recorder interrogations, hospital records, and blood work reviewed. ASSESSMENT Diagnoses and all orders for this visit: 1. Recurrent falls (Primary) 2. Near syncope 3. Palpitations 4. Multiple sclerosis (CMS/HCC) 5. Systemic lupus erythematosus-related syndrome (CMS/HCC) 6. Status post placement of implantable loop recorder 7. Seizure disorder (CMS/HCC) PLAN/RECOMMENDATIONS 1. Monitor BP on routine basis. [...] additional questions or concerns. Tamica Sotomayor MD, [facility] documented in this encounter Plan of Treatment Not on file documented as of this encounter Visit Diagnoses Diagnosis Recurrent falls- Primary Near syncope Palpitations Multiple sclerosis (HCC) Multiple sclerosis Systemic lupus erythematosus-related syndrome (CMS/HCC) (HCC) Systemic lupus erythematosus Status post placement of implantable loop recorder Seizure disorder (CMS/HCC) (HCC) Unspecified epilepsy without mention of intractable epilepsy documented in this encounter Historical Medications * This list may reflect changes made after this encounter. levETIRAcetam (KEPPRA) 500 mg tablet Take 500 mg by mouth 2 (two) times a day. doxycycline (ADOXA) 100 mg tablet Take 100 mg by mouth daily. 03/24/2018 added in this encounter Care Teams Hosiery Bagger Relationship Specialty Start Date End Date Warren Cowan MD [address] [place] [address] PCP - General 10/01/16 documented as of this encounter
--- OUTSIDE RECORDS SUMMARY | 2024-07-07 17:20 | XMS_ITS | Encounter Summary ---
Author Organization [facility] Address [address] [place] [address] Phone Care Team Providers Care Net Fisher Name Role Phone Warren Cowan MD Primary Care Prov ider Reason for Visit * Reason Onset Date Comments New pt appt 10/12/2023 Encounter Details Date Type Department Care Team (Late st Contact Info) Description 10/12/2023 Telephone [facility] Ophthalmology [address] [place], [place] [phone] Shamar Ratliff MD [address] [facility] [address] [place], [place] [phone] New pt appt Social History Tobacco Use Types Packs/Day Years [...] on file Legal Sex Female 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 * Telephone Encounter - Carolina Robison CMA - 10/12/2023 1:51 PM CDT Waiting for notes. * Telephone Encounter - Tennille Gonzalez - 10/12/2023 10:39 AM CDT New Patient Appointment Request: Reason/Diagnoses: Suspect optic neurits h/o MS How long has patient been experiencing symptoms?: 4 months Appt Needed: Next Available Referring doctor: Zach Middleton Referring Physician Specialty: Customs Manager Referring doctor contact information: [phone] Were records requested? YES Has the patient had any testing (MRI/CT/VF/Labs, etc) done regarding this issue?: No If testing has been done, where was testing performed at? N/A Additional comments: Symptoms: pain with eye movement, decreased color vision, OU, and unexplained vision loss documented in this encounter Plan of Treatment Not on file documented as of this encounter Visit Diagnoses Not on filedocumented in this encounter Care Teams Net Fisher Relationship Specialty Start Date End Date Warren Cowan MD [address] [place] [address] PCP - General 10/01/16 documented as of this encounter
--- OUTSIDE RECORDS SUMMARY | 2024-07-07 17:20 | XMS_ITS | Encounter Summary ---
Author Organization [facility] Address [address] [facility] [address] [place] [address] Care Team Providers Care Electrical Sign Wirer Helper Name Role Phone Warren Cowan MD Primary Care Prov ider Reason for Visit * (Routine) - Canceled Specialty Diagnoses / Procedures Referred By Contac t Referred To Contact Diagnoses Syncope and collapse Procedures DEVICE CHECK - REMOTE Param Sotomayor MD Phone: tel: fax: Referral ID Status Reason Start Date Expiration Date V isits Requested Visits Authorized [id number] Canceled 12/10/2017 06/08/2018 1 1 Encounter Details Date Type Department Care Team (Latest Contact Info) Description 03/16/2018 7:30 AM CDT Ancillary Procedure [facility] Cardiology [address] [facility] [address] [place] [phone] Syncope and collapse; Status post placement of implantable loop recorder Social History Tobacco Use Types Packs/Day Years Used Date Smoking Tobacco: Former Smokeless Tobacco: Never Alcohol Use Standard Drinks/Week Comments No 0 (1 standard drink = 0.6 oz pur e alcohol) Comments Unknown Sex and Gender Information Value Date Recorded Sex Assigned at Not on file Legal Sex Female 3:44 AM FLASK FITTER Gender Identity Not on file Sexual Orientation Not on file documented as of this encounter Plan of Treatment Pending Results Name Type Priority Associated Diagnoses Date /Time DEVICE CHECK - REMOTE Cardiac Services Routine Syncope and collapse 03/16/2018 2:35 PM CDT documented as of this encounter Visit Diagnoses Diagnosis Syncope and collapse Status post placement of implantable loop recorder documented in this encounter Care Teams Electrical Sign Wirer Helper Relationship Specialty Start Date End Date Warren Cowan MD [address] [place] [address] PCP - General 10/01/16 documented as of this encounter
--- OUTSIDE RECORDS SUMMARY | 2024-07-07 17:20 | XMS_ITS | Encounter Summary ---
Author Organization [facility] Address [address] [facility] [address] [place] [phone] Care Team Providers Care Insurance Biller Name Role Phone Warren Cowan MD Primary Care Prov ider Reason for Visit * Cardiology (Routine) - Canceled Specialty Diagnoses / Procedures Referred By Contloretta t Referred To Contact Diagnoses Syncope and collapse Procedures DEVICE CHECK - REMOTE Param Sotomayor MD Phone: tel: fax: Referral ID Status Reason Start Date Expiration Date V isits Requested Visits Authorized [id number] Canceled 12/17/2016 06/15/2017 1 1 Encounter Details Date Type Department Care Team (Latest Contact Info) Description 05/09/2017 8:30 AM ADMINISTRATIVE LIAISON Ancillary Procedure [facility] Cardiology [address] [facility] [address] [place] [phone] Syncope and collapse; Status post placement of implantable loop recorder Social History Tobacco Use Types Packs/Day Years Used Date Smoking Tobacco: Former Smokeless Tobacco: Never Alcohol Use Standard Drinks/Week Comments No 0 (1 standard drink = 0.6 oz pur e alcohol) Comments Unknown Sex and Gender Information Value Date Recorded Sex Assigned at Not on file Legal Sex Female 3:44 AM ADMINISTRATIVE LIAISON Gender Identity Not on file Sexual Orientation Not on file documented as of this encounter Plan of Treatment Pending Results Name Type Priority Associated Diagnoses Date /Time DEVICE CHECK - REMOTE Cardiac Services Routine Syncope and collapse 05/10/2017 4:45 PM ADMINISTRATIVE LIAISON documented as of this encounter Visit Diagnoses Diagnosis Syncope and collapse Status post placement of implantable loop recorder documented in this encounter Care Teams Insurance Biller Relationship Specialty Start Date End Date Warren Cowan MD [address] [place] [address] PCP - General 10/01/16 documented as of this encounter
--- OUTSIDE RECORDS SUMMARY | 2024-07-07 17:20 | XMS_ITS | Referral Summary ---
Author Organization [facility] [address] Address [address] [place] [address] Care Team Providers Care Journeyman Lineman Name Role Phone Warren Cowan MD Primary [...] Problem Noted Date Diagnosed Date Seizure disorder ([facility]) 03/09/2017 Near syncope 12/13/2016 Systemic lupus erythematosus-related syndrome Overview (10/08/2016): SLE (systemic lupus erythematosus related syndrome) Status post placement of implantable loop record er 08/04/2015 Overview (02/18/2017): Medtronic reveal implantable loop recorder Dx; Syncope. DOI 03/11/2015. Carelink remote home monitoring Q35-45 days. Candidiasis of esophagus ([facility]) 08/04/2015 Overview (10/08/2016): Candidal esophagitis Syncope and collapse 08/04/2015 Overview (10/08/2016): Syncope and collapse Syncope 03/04/2015 Overview (10/08/2016): Syncope Recurrent falls 03/04/2015 Overview (10/08/2016): Frequent falls Fibrositis 03/04/2015 Overview (10/08/2016): Fibromyalgia SLE glomerulonephritis syndrome (CMS/HCC) 2014 Overview (10/08/2016): Nephritis NOS in other disease Multiple sclerosis 03/04/2015 Overview (10/08/2016): Multiple sclerosis Chest pain 03/04/2015 Overview (10/08/2016): Chest pain Palpitations 03/04/2015 Overview (10/08/2016): Palpitations Social History Tobacco Use Types Packs/Day Years [...] on file Legal Sex Female 3:44 AM CHIEF OF PEDIATRIC UROLOGY Gender Identity Not on file Sexual Orientation Not on file Last Filed Vital Signs Vital Sign Reading Time Taken Comments Blood Pressure 126/76 08/28/2019 2:17 PM CHIEF OF PEDIATRIC UROLOGY Pulse 64 08/28/2019 2:17 PM CHIEF OF PEDIATRIC UROLOGY Temperature - - Respiratory Rate 16 03/09/2017 2:37 PM CDT Oxygen Saturation 96% 08/28/2019 2:17 PM CHIEF OF PEDIATRIC UROLOGY Inhaled Oxygen Concentration - - Weight 96.6 kg (213 lb) 08/28/2019 2:17 PM CHIEF OF PEDIATRIC UROLOGY Height 165.1 cm (5' 5 ) 08/28/2019 2:17 PM CHIEF OF PEDIATRIC UROLOGY Body Mass Index 35.45 08/28/2019 2:17 PM CHIEF OF PEDIATRIC UROLOGY Plan of Treatment Not on file Medical Devices Implanted Type Area Court Assistant Device Identifier Shelf Expiration Date Model / Serial / Lot Implantable Loop Recorder Implantable Loop Recorder Chest [employer] Insurance MEDICARE [facility] Care Teams Journeyman Lineman Relationship Specialty Start Date End Date Warren Cowan MD [address] [place] [address] PCP - General 10/01/16
--- OUTSIDE RECORDS SUMMARY | 2024-07-07 17:21 | XMS_ITS | Encounter Summary ---
Author Organization [facility] Address [address] [facility] [address] [place] [address] Care Team Providers Care Yarn Dyer Name Role Phone Warren Cowan MD Primary Care Prov ider Reason for Visit * Reason Comments Syncope 4 month f/u Shortness of Breath Encounter Details Date Type Department Care Team (Late st Contact Info) Description 12/13/2016 3:00 PM CDT Office Visit [facility] [address] [facility] [address] [place] [phone] Param Sotomayor MD [address] [facility] [address] [place] [address] Syncope and collapse (Primary Dx); Palpitations; Status post placement of implantable loop recorder; Systemic lupus erythematosus-related syndrome (CMS/HCC); Multiple sclerosis (CMS/HCC) Social History Tobacco Use Types Packs/Day Years Used Date Smoking Tobacco: Former Alcohol Use Standard Drinks/Week Comments No 0 (1 standard drink = 0.6 oz pur e alcohol) Comments Unknown Sex and Gender Information Value Date Recorded Sex Assigned at Not on file Legal Sex Female 3:44 AM VISUAL MERCHANDISING SPECIALIST Gender Identity Not on file Sexual Orientation Not on file documented as of this encounter Last Filed Vital Signs Vital Sign Reading Time Taken Comments Blood Pressure 130/82 12/13/2016 3:54 PM CDT Pulse 83 12/13/2016 3:54 PM CDT Temperature - - Respiratory Rate 20 12/13/2016 3:54 PM CDT Oxygen Saturation 93% 12/13/2016 3:54 PM CDT Inhaled Oxygen Concentration - - Weight 97 kg (213 lb 12.8 oz) 12/13/2016 3:54 PM CDT Height 165.1 cm (5' 5 ) 12/13/2016 3:54 PM CDT Body Mass Index 35.58 12/13/2016 3:54 PM CDT documented in this encounter Progress Notes * Param Sotomayor MD - 12/13/2016 3:00 PM CDT [facility] DATE OF VISIT: 12/13/2016 CHIEF COMPLAINT Chief Complaint Patient presents with ??? Syncope 4 month f/u ??? Shortness of Breath HPI Allie Buchanan is a 51 y.o. [...] not go to the ER for evaluation. MEDICAL HISTORY Past Medical History: Diagnosis Date ??? Lupus erythematosus Lupus; Comments: [facility] 03/04/2015 - ??? Multiple sclerosis (CMS/HCC) MS; Comments: [facility] 03/04/2015 - Social History Substance Use Topics ??? Smoking status: Former Smoker ??? Smokeless tobacco: Not on file ??? Alcohol use No Family History Problem [...] docusate sodium (STOOL SOFTENER) 100 mg capsule ferrous sulfate (IRON) 325 mg (65 mg of elemental iron) tablet fludrocortisone 0.1 mg tablet folic acid (FOLVITE) 1 mg tablet HYDROcodone-acetaminophen (NORCO) 5-325 mg per tablet meclizine (ANTIVERT) 25 mg tablet melatonin [...] and pain. Cardiovascular: Positive for dyspnea on exertion, irregular heartbeat, near- syncope and syncope. Negative for chest pain, claudication, leg swelling, orthopnea and palpitations. Respiratory: Negative for cough, hemoptysis, shortness of [...] Negative for dysuria, hematuria and nocturia. Neurological: Negative for excessive daytime sleepiness, dizziness, focal weakness, light-headedness and loss of balance. Psychiatric/Behavioral: Negative for altered mental status, depression and memory loss. The patientis not nervous/anxious. Allergic/Immunologic: Negative for environmental allergies. PHYSICAL EXAM Vitals: 12/13/16 1554 BP: 130/82 Pulse: 83 Resp: 20 SpO2: 93% Weight: 97 kg (213 lb 12.8 oz) Height: 165.1 cm (5' 5 ) Body mass index is 35.58 kg/m??. Physical Exam Constitutional: She is oriented [...] has no rales. She exhibits no tenderness. Abdominal: Soft. Bowel sounds are normal. She exhibits no distension and no mass. There is no tenderness. There is no rebound and no guarding. obese Musculoskeletal: Normal range of motion. She exhibits [...] Reviewed EKG, Echocardiogram, stress test, and bloodwork/lipids. ASSESSMENT Diagnoses and all orders for this visit: 1. Syncope and collapse (Primary) 2. Palpitations 3. Status post placement of implantable loop recorder 4. Systemic lupus erythematosus-related syndrome (CMS/HCC) 5. Multiple sclerosis (CMS/HCC) PLAN/RECOMMENDATIONS 1. Monitor BP on routine basis. Call with readings. Continue consistent cardiovascular exercise, weight loss, medication compliance, and low-sodium diet. 2. Midodrine an option. Will review loop recorder interrogation. Continue fludrocortisone for now although does not appear to be controlling her symptoms. 3. Ambulate with caution. Rise slowly from a seated position. Monitor symptoms closely. Avoid dehydration. 4. Further recommendations to follow after review of blood work, loop recorder interrogation. 5. Discussed risks, benefits, alternatives to Midodrine. 6. Contact office with recurrent episodes and for further recommendations. Over 50% of this visit counseling syncope, loop recorder, HTN, lipids, medications, lifestyle modification. Follow up in the office in 3 months. Thank you for allowing me the privilege of participating in the care this very pleasant patient. Please do not hesitate to contact me with any additional questions or concerns. Tamica Sotomayor MD, [facility] documented in this encounter Plan of Treatment Not on file documented as of this encounter Visit Diagnoses Diagnosis Syncope and collapse- Primary Palpitations Status post placement of implantable loop recorder Systemic lupus erythematosus-related syndrome (CMS/HCC) (HCC) Systemic lupus erythematosus Multiple sclerosis (HCC) Multiple sclerosis documented in this encounter Care Teams Yarn Dyer Relationship Specialty Start Date End Date Warren Cowan MD [address] [place] [address] PCP - General 10/01/16 documented as of this encounter
--- OUTSIDE RECORDS SUMMARY | 2024-07-07 17:21 | XMS_ITS | Encounter Summary ---
Author Organization [facility] Address [address] [facility] [address] [place] [address] Care Team Providers Care Supervisor Phosphatic Fertilizer Name Role Phone Warren Cowan MD Primary Care Prov ider Warren Cowan MD Primary Care Prov ider Encounter Details Date Type Department Care Team (Late st Contact Info) Description 07/29/2016 Orders Only [facility] ProviderRavi MD [address] [place] [phone] Social History Tobacco Use Types Packs/Day Years Used Date Smoking Tobacco: Former Alcohol Use Standard Drinks/Week Comments No 0 (1 standard drink = 0.6 oz pur e alcohol) Comments Unknown Sex and Gender Information Value Date Recorded Sex Assigned at Not on file Legal Sex Female 3:44 AM INVENTORY SPECIALIST MANAGER Gender Identity Not on file Sexual Orientation Not on file documented as of this encounter Plan of Treatment Not on file documented as of this encounter Procedures Procedure Name Priority Date/Time Associated Diagnosis Comments CARDIOLOGY REPORT 07/29/2016 documented in this encounter Results * CARDIOLOGY REPORT (07/29/2016) Anatomical Region Laterality Modality Other Narrative 07/29/2016 Ordered by an unspecified provider. Historical Provider [facility] FAVIAN VALDEZ Final Result documented in this encounter Visit Diagnoses Not on filedocumented in this encounter Care Teams Supervisor Phosphatic Fertilizer Relationship Specialty Start Date End Date Warren Cowan MD [address] [place] [address] PCP - General 10/01/16 Warren Cowan MD [address] [place] [address] PCP - General 06/26/15 09/30/16 documented as of this encounter
--- OUTSIDE RECORDS SUMMARY | 2024-07-07 17:21 | XMS_ITS | Encounter Summary ---
Author Organization [facility] Address [address] [place] [address] Care Team Providers Care Automotive Fuel Systems Converter Name Role Phone Warren Cowan MD Primary Care Prov ider Encounter Details Date Type Department Care Team (Late st Contact Info) Description 10/24/2016 Orders Only [facility] ProviderRavi MD [facility] [place] [address] Social History Tobacco Use Types Packs/Day Years Used Date Smoking Tobacco: Former Alcohol Use Standard Drinks/Week Comments No 0 (1 standard drink = 0.6 oz pur e alcohol) Comments Unknown Sex and Gender Information Value Date Recorded Sex Assigned at Not on file Legal Sex Female 3:44 AM GLASS RIBBON MACHINE OPERATOR ASSISTANT Gender Identity Not on file Sexual Orientation Not on file documented as of this encounter Plan of Treatment Not on file documented as of this encounter Procedures Procedure Name Priority Date/Time Associated Diagnosis Comments CARDIOLOGY REPORT 10/24/2016 documented in this encounter Results * CARDIOLOGY REPORT (10/24/2016) Anatomical Region Laterality Modality Other Narrative 10/24/2016 Ordered by an unspecified provider. us Historical Provider [facility] FAVIAN VALDEZ Final Result documented in this encounter Visit Diagnoses Not on filedocumented in this encounter Care Teams Automotive Fuel Systems Converter Relationship Specialty Start Date End Date Warren Cowan MD [address] [place] [address] PCP - General 10/01/16 documented as of this encounter
--- OUTSIDE RECORDS SUMMARY | 2024-07-07 17:21 | XMS_ITS | Encounter Summary ---
Author Organization [facility] Address [address] [place] [address] Care Team Providers Care Inside B2B Sales Name Role Phone Warren Cowan MD Primary Care Prov ider Warren Cowan MD Primary Care Prov ider Encounter Details Date Type Department Care Team (Late st Contact Info) Description 09/12/2016 Orders Only [facility] ProviderRavi MD [address] [place] [id number] Social History Tobacco Use Types Packs/Day Years Used Date Smoking Tobacco: Former Alcohol Use Standard Drinks/Week Comments No 0 (1 standard drink = 0.6 oz pur e alcohol) Comments Unknown Sex and Gender Information Value Date Recorded Sex Assigned at Not on file Legal Sex Female 3:44 AM ACOUSTICAL LOGGING ENGINEER Gender Identity Not on file Sexual Orientation Not on file documented as of this encounter Plan of Treatment Not on file documented as of this encounter Procedures Procedure Name Priority Date/Time Associated Diagnosis Comments CARDIOLOGY REPORT 09/12/2016 documented in this encounter Results * CARDIOLOGY REPORT (09/12/2016) Anatomical Region Laterality Modality Other Narrative 09/12/2016 Ordered by an unspecified provider. Historical Provider [facility] FAVIAN VALDEZ Final Result documented in this encounter Visit Diagnoses Not on filedocumented in this encounter Care Teams Inside B2B Sales Relationship Specialty Start Date End Date Warren Cowan MD [address] [place] [address] PCP - General 10/01/16 Warren Cowan MD [address] [place] [address] PCP - General 06/26/15 09/30/16 documented as of this encounter
--- OUTSIDE RECORDS SUMMARY | 2024-07-07 17:21 | XMS_ITS | Encounter Summary ---
Author Organization [facility] Address [address] [place] [address] Care Team Providers Care Veneer Splicer Name Role Phone Warren Cowan MD Primary Care Prov ider Warren Cowan MD Primary Care Prov ider Encounter Details Date Type Department Care Team (Late st Contact Info) Description 06/17/2016 Orders Only [facility] ProviderRavi MD [address] [place] [id number] Social History Tobacco Use Types Packs/Day Years Used Date Smoking Tobacco: Former Alcohol Use Standard Drinks/Week Comments No 0 (1 standard drink = 0.6 oz pur e alcohol) Comments Unknown Sex and Gender Information Value Date Recorded Sex Assigned at Not on file Legal Sex Female 3:44 AM WATER LEAK REPAIRER Gender Identity Not on file Sexual Orientation Not on file documented as of this encounter Plan of Treatment Not on file documented as of this encounter Procedures Procedure Name Priority Date/Time Associated Diagnosis Comments CARDIOLOGY REPORT 06/17/2016 documented in this encounter Results * CARDIOLOGY REPORT (06/17/2016) Anatomical Region Laterality Modality Other Narrative 06/17/2016 Ordered by an unspecified provider. Historical Provider [facility] FAVIAN VALDEZ Final Result documented in this encounter Visit Diagnoses Not on filedocumented in this encounter Care Teams Veneer Splicer Relationship Specialty Start Date End Date Warren Cowan MD [address] [place] [address] PCP - General 10/01/16 Warren Cowan MD [address] [place] [address] PCP - General 06/26/15 09/30/16 documented as of this encounter
== END 2024-06-30 12:41 | disposition home or self-care (01) ==
PROVIDERS: Emergency Provider Emergency Medicine; PCP Family Medicine Adolescent Medicine
DX: S69.92XA Unspecified injury of left wrist, hand and finger(s), initial encounter (principal); S09.90XA Unspecified injury of head, initial encounter; G35 Multiple sclerosis; I70.0 Atherosclerosis of aorta; J44.9 Chronic obstructive pulmonary disease, unspecified; E66.9 Obesity, unspecified; Z68.36 Body mass index [BMI] 36.0-36.9, adult; M35.00 Sjogren syndrome, unspecified; M32.9 Systemic lupus erythematosus, unspecified; Z87.891 Personal history of nicotine dependence; Z90.49 Acquired absence of other specified parts of digestive tract; Z90.710 Acquired absence of both cervix and uterus; M19.032 Primary osteoarthritis, left wrist; W18.39XA Other fall on same level, initial encounter
CPT/HCPCS: 70450; 72125; 73100; 99284

== ENCOUNTER 2024-11-20 10:48 | Emergency (ER) | payer OTHER, SELFPAY ==
[2024-11-20] VITALS (25 sets, daily range): BP systolic 112–155; BP diastolic 47–101; PULSE 60–80; RESP 16–18; TEMP 36.5; O2SAT 95–100
--- NOTE | ~2024-11-20 | CT_ITS ---
CT facial & cervical spine wo Ordering provider: Bao Rogel MD History: . trauma . Comparison: None. Technique: Thin slice axial CT of the facial bones was performed without contrast. Coronal and sagit candace reformatted images were also obtained. . Automated exposure control and iterative reconstruction technique were employed. The dose-length product was 576.76 mGy-cm. FINDINGS: PARANASAL SINUSES: Well aerated. Mild left nasal septal deviation. BONES: No facial fracture including no nasal bone fracture. ORBITS AND SUPERFICIAL SOFT TISSUES: The optic globes and orbits are normal. The superficial soft tis sues are normal. VISUALIZED MASTOIDS: Well aerated. LIMITED VISUALIZED BRAIN PARENCHYMA: Normal. IMPRESSION: No facial fracture. CT facial & cervical spine wo Ordering provider: Bao Rogel MD History: . trauma . Comparison: None. Technique: CT of the cervical spine was performed without contrast. Sagittal and coronal reformatted images were also obtained and reviewed. Automated exposure control and iterative reconstruction aditi hnique were employed. The dose-length product was 576.76 mGy-cm. FINDINGS: VERTEBRAE: No subluxation or acute fracture. The occipital condyles are intact. Degenerative changes of the spine. DISC SPACES: Narrowing of the disc C3-C4, C4-C5 and C5-C6 and C6-C7. Multilevel facet joint disease. Multilevel uncovertebral joint osteoarthritic changes. Narrowing of the right foramen at the level of C3-C4, C4-C5 and C5-C6. Bilateral narrowing of the level of C6-C7. 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 Focus of calc ification the right thyroid. IMPRESSION: No acute osseous abnormality cervical spine. Multilevel degenerative disc disease. Reviewed, dictated and finalized at location A. IMPRESSION: No facial fracture. CT facial & cervical spine wo Ordering provider: Bao Rogel MD History: . trauma . Comparison: None. Technique: CT of the cervical spine was performed without contrast. Sagittal a nd coronal reformatted images were also obtained and reviewed. Automated expos ure control and iterative reconstruction technique were employed. The dose-audrey th product was 576.76 mGy-cm. FINDINGS: VERTEBRAE: No subluxation or acute fracture. The occipital condyles are intact. Degenerative changes of the spine. DISC SPACES: Narrowing of the disc C3-C4, C4-C5 and C5-C6 and C6-C7. Multilevel facet joint disease. Multilevel uncovertebral joint osteoarthritic changes. Na rrowing of the right foramen at the level of C3-C4, C4-C5 and C5-C6. Bilateral narrowing of the level of C6-C7. PARASPINOUS SOFT TISSUES: Severe narrowing of the trachea suggestive of tracheo malacia. Focus of calcification the right thyroid.
--- NOTE | ~2024-11-20 | CT_ITS ---
CT brain wo con Ordering provider: Bao Rogel MD History: 59 years Female with . trauma . Comparison: June 30, 2024 Technique: CT of the head without contrast. Radiation reduction technique utilized. The dose-length p roduct was 681 mGy-cm. FINDINGS: BRAIN PARENCHYMA AND CSF SPACES: No midline shift, mass effect or hemorrhage. The brain parenchyma a nd CSF spaces are otherwise normal. VISUALIZED PARANASAL SINUSES: Well aerated. MASTOIDS: Well aerated. BONES: The bones appear intact. SOFT TISSUES: Visualized nasopharynx is normal. Superficial soft tissues are normal. IMPRESSION: No acute intracranial findings. Reviewed, dictated and finalized at location A.
--- NOTE | ~2024-11-20 | CT_ITS ---
CLINICAL INDICATION: Remote history of trauma COMPARISON: 11/05/2023. TECHNIQUE: Multiple contiguous axial images of the abdomen and pelvis were performed following the ad ministration of with 100 mL Omnipaque-350 intravenous contrast The dose-length product (DLP) was 1319.72 mGy-cm. Automated exposure control and iterative reconstruction technique were employed. FINDINGS/OBSERVATIONS: Visualized lower thorax: Trace bibasilar atelectasis. The remainder of the bilateral lung bases are year. The heart is borderline enlarged, without pericardial effusion. Liver: The liver demonstrates homogeneously decreased enhancement consistent with fatty infiltration and is not enlarged. Gallbladder and biliary system: The gallbladder is surgically absent. Pancreas: The pancreas enhances homogeneously without ductal dilatation. Spleen: The spleen enhances homogeneously and is not enlarged measuring 8 cm in longitudinal dimension. Kidneys: The bilateral kidneys enhance symmetrically without hydronephrosis or renal calculi. Adrenal glands: Unremarkable. Gastrointestinal tract: Colonic diverticulosis without surrounding inflammatory change. Fecal stasis within the colon. Appendix: The air-filled appendix is of normal caliber (axial series, images 115 through 147). Vasculature: Unremarkable. Lymph nodes: No pathologically enlarged or morphologically suspicious lymph nodes within the retroperitoneum or at the root of the mesentery. Pelvic structures: The bladder is minimally distended, and otherwise unremarkable. The uterus is anteverted and anteflexed, and somewhat atrophic for a patient of this age. Body wall and musculoskeletal: Small fat-containing umbilical hernia with induration of the surrounding superficial soft tissues. No significant degenerative disease within the lower thoracic or lumbosacral spine. IMPRESSION: No hollow or solid visceral organ injury. No acute fractures. Fatty infiltration of the liver. Induration of the superficial soft tissues overlying a fat-containing umbilical hernia, as detailed a patricia. Reviewed, dictated and finalized at location A. IMPRESSION: No hollow or solid visceral organ injury. No acute fractures. Fatty infiltration of the liver. Induration of the superficial soft tissues overlying a fat-containing umbilical hernia, as detailed above.
--- OUTSIDE RECORDS SUMMARY | 2024-11-20 11:02 | XMS_ITS | Clinical Summary ---
Author Organization [facility] Address [address] [place] [address] Care Team Providers Care Mid Level Game Designer Name Role Phone Warren Cowan MD Primary Care Provider +1- [phone] Allergies No known active allergies Medications No [...] 70 03/20/2019 2:38 PM CDT Temperature 36.7 C (98.1 F) 03/20/2019 2:38 PM CDT Respiratory Rate 18 03/20/2019 2:38 PM CDT [...] Td Vaccines ( 1 - Tdap) 1984 Mammogram Screening 2005 Pneumococcal Vaccine: 50+ Ye ars (1 of 1 - PCV) 2015 Zoster Vaccines (1 of 2) 2015 COVID-19 Vaccine (1 - 2023-2 5 season) 2024 Meningococcal B Vaccine Aged Out No l onger eligible based on patient's age to complete this topic Meningococcal Vaccine Aged Out No ashley jayleen eligible based on patient's age to complete this topic RSV Immunizations Under 20 Months Aged Out No longer eligible based on patient's age to complete this topic Insurance MEDICARE AET Care Teams Mid Level Game Designer Relationship Specialty Start Date End Date Warren Cowan MD [address] [address] PCP - General FAMILY PRACTICE 02/27/19
--- OUTSIDE RECORDS SUMMARY | 2024-11-20 11:02 | XMS_ITS | Encounter Summary ---
Author Organization [facility] Address [facility] [place] [address] Care Team Providers Care Door Puller Name Role Phone Warren Cowan MD Primary Care Provider +1- [phone] Encounter Details Date Type Department Care Team (Late st Contact Info) Description 12/09/2018 Abstract SFL CONVERSION [address] [place] [address] , Generic Conversion, Social History Tobacco Use [...] on filedocumented in this encounter Care Teams Door Puller Relationship Specialty Start Date End Date Warren Cowan MD [address] [address] PCP - General FAMILY PRACTICE 02/27/19 documented as of this encounter
--- OUTSIDE RECORDS SUMMARY | 2024-11-20 11:02 | XMS_ITS | Clinical Summary ---
Author Organization [facility] Sumaya Weller Address [address] [place] [address] Care Team Providers Care Professor Of Marketing Name Role Phone Warren Cowan MD Primary Care Provider +1- [phone] Allergies No known active allergies Medications levETIRAcetam (KEPPRA) 500 mg tablet Take 500 [...] Take 100 mg by mouth daily. Active methylPREDNISol one (MEDROL) 4 mg tablet Take 4 mg by mouth. Active atorvastatin (LIPITOR) 20 mg tablet Take 20 mg by mouth daily. Active folic acid (FOLVITE) 1 mg tablet Take 1 mg by mouth daily. Active OMEPRAZOLE ORAL Take by mouth. Active docusate sodium (STOOL SOFTENER ORAL) Take by mouth. Activ e naloxone (NARCAN) 4 mg/spray [place], Non-Aerosol EMERGENCY USE ONLY: Administer 1 spray (4 mg) in one nostril one time. May repeat in alternating nostrils every 2-3 min until responsive or EMS arrives. 2 Each 3 0 Active ergocalciferol (VITAMIN D2) 50,000 unit capsule TAKE 1 CAPSULE BY MOUTH ONCE MONTHLY 0 Active Trelegy Ellipta 100-62.5-25 mcg Disk with Device 2 Active methotrexate (RHEUMATREX) 2.5 mg Tablet 1 Active pregabalin (LYRICA) 150 mg Capsule 2 Active solifenacin (VESICARE) 10 mg Tablet Take 10 mg by mouth daily. 2 Active meclizine (ANTIVERT) 25 mg tablet TAKE 1 TABLET 4 TIMES A DAY NEEDED FOR DIZZINESS 2 Active baclofen (LIORESAL) 20 mg tablet Take 20 mg by mouth daily at bedtime. 4 Active clonazePAM (KlonoPIN) 1 mg tablet TAKE 1 TABLET BY MOUTH EVERY DAY 30 MINUTES BEFORE BEDTIME 4 Active Active Problems Problem Noted Date Diagnosed Date Erythrocytosis 02/22/2020 Encounters Date Type Department Care Team Description 10/02/2024 External Device Data STL ABSTRACTION Provider, Abstract 09/19/2024 External Device Data ST[facility] ABSTRACTION Provider, Abstract 09/12/2024 External Device Data ST[facility] ABSTRACTION Provider, Abstract 09/11/2024 External Device Data ST[facility] ABSTRACTION Provider, Abstract 09/10/2024 External Device Data ST[facility] ABSTRACTION Provider, Abstract 09/08/2024 External Device Data ST[facility] ABSTRACTION Provider, Abstract 09/08/2024 External Device Data ST[facility] ABSTRACTION Provider, Abstract 09/05/2024 External Device Data ST[facility] ABSTRACTION Provider, Abstract [...] = 0.6 oz pur e alcohol) Comments No Sex and Gender Information Value Date Recorded Sex Assigned at Not on file Legal Sex Female 10:54 AM CDT Gender Identity Not on file Sexual Orientation Not on file Last Filed Vital Signs Vital Sign Reading Time Taken Comments Blood Pressure 102/64 06/18/2024 10:55 AM BEAM PRESS OPERATOR Pulse 55 06/18/2024 10:55 AM BEAM PRESS OPERATOR Temperature 36.5 C (97.7 F) 06/18/2024 10:55 AM BEAM PRESS OPERATOR Respiratory Rate 15 06/18/2024 10:5 5 AM BEAM PRESS OPERATOR Oxygen Saturation 97% 06/18/2024 10: 55 AM BEAM PRESS OPERATOR Inhaled Oxygen Concentration - - Weight 100.3 kg (221 lb 3.2 oz) 024 10:55 AM BEAM PRESS OPERATOR Height 157.5 cm (5' 2 ) 11/03/2021 3:41 PM CDT Body Mass Index 40.46 11/03/2021 3:41 PM CDT Plan of Treatment Upcoming Encounters Date Type Department Care Team (Late st Contact Info) Description 06/18/2025 10:00 AM BEAM PRESS OPERATOR Office Visit [facility] Oncology and Hematology - [place] [address] [facility] [address] [place] [address] Aki Guido MD [address] [facility] [facility] [address] [place] [address] Health Maintenance Due Date Last Done Comments Pre-Diabetes and Diabetes Screening 1965 DTAP/TDAP/TD VACCINES (1 - Tdap) 1984 HEPATITIS B VACCINES (1 of 3 - 19+ 3-dose series) 12/1984 BREAST CANCER SCREENING 2005 COLORECTAL SCREENING 2010 Colorectal Cancer Screening 2010 FIT-DNA Q 3 years 2010 FIT/FOBT Q 1 year 2010 Flex Sig/CT Colonography Q 5 years 2010 ZOSTER VACCINE (1 of 2) 2015 INFLUENZA VACCINE (#1) 2024 Insurance [facility] Care Teams Professor Of Marketing Relationship Specialty Start Date End Date Warren Cowan MD PCP - General Family Practice 11/01/19
--- OUTSIDE RECORDS SUMMARY | 2024-11-20 11:03 | XMS_ITS | Encounter Summary ---
Author Organization [facility] Address [address] [place] [address] Care Team Providers Care Pesticide Control Inspector Name Role Phone Warren Cowan MD Primary Care Prov ider Warren Cowan MD Primary Care Prov ider Encounter Details Date Type Department Care Team (Late st Contact Info) Description 09/12/2016 Orders Only [facility] ProviderRavi MD [address] [place] [id number] Social History Tobacco Use Types Packs/Day Years Used Date Smoking Tobacco: Former Alcohol Use Standard Drinks/Week Comments No 0 (1 standard drink = 0.6 oz pur e alcohol) Comments Unknown Sex and Gender Information Value Date Recorded Sex Assigned at Not on file 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
--- OUTSIDE RECORDS SUMMARY | 2024-11-20 11:03 | XMS_ITS | Clinical Summary ---
Author Organization [facility] Address [address] [place] [address] Care Team Providers Care Maintenance Mechanic Supervisor Name Role Phone Warren Cowan MD Primary Care Provider + Source Comments [facility],non-owned Affiliates and Associated Physician Practices is amultiple site organization consisting of ambulatory clinics and hospital sitesin [place], [place], [place] and [place]. This disclosure is being madepursuant to the Care Everywhere program and may not contain all information available regarding this patient. Last updated 18.[facility] Allergies No known active allergies Medications * Be aware that medications may not be up to date on this document. Alwaysverify current medications with the patient. Psyllium (METAMUCIL PO) Take 1 oz by [...] by mouth once daily Active vitamin D3 (CHOLECALCIFERO L) 400 UNIT tablet Take 400 Units by mouth once daily Active atorvastatin (LIPITOR) 20 MG tablet Take 20 mg by mouth at bedtime Active sertraline (ZOLOFT) 100 MG tablet Take 100 mg by mouth once daily Active folic acid (FOLVITE) 1 MG tablet Take 1 mg by mouth once daily Active Calcium Carb-Cholecalci ferol (CALCIUM 1000 + D PO) Active ALPRAZolam (XANAX) 0.25 MG tablet Take 0.25 mg by mouth 3 times daily as needed for Anxiety Active amitriptyline (ELAVIL) 25 MG tablet Take 25 mg by mouth at bedtime Active HYDROcodone-corbin taminophen (NORCO) 7.5-325 MG tablet Take 1 Tab [...] 6 mg by mouth at bedtime Active methylPREDNISol one (MEDROL) 4 MG tablet Take 4 mg by mouth once daily Active oxyCODONE-aceta minophen (PERCOCET) 5-325 MG tablet Take 1 Tab by mouth every 4 hours as needed 40 Tab 0 6 Active ibuprofen (MOTRIN) 600 MG tablet Take 1 Tab by mouth every 6 hours as needed for Pain 60 Tab 0 6 Active docusate sodium (COLACE) 100 MG capsule Take 1 Cap by mouth 2 times daily 60 Cap 3 6 Active polyethylene glycol 3350 (MIRALAX) powder Take 17 g by mouth once daily 225 g 0 6 Active Active Problems Problem Noted Date Diagnosed [...] at Not on file Legal Sex Female 6:04 PM CDT Gender Identity Not on file Sexual Orientation Not on file Last Filed Vital Signs Vital Sign Reading Time Taken Comments Blood Pressure 128/84 03/30/2016 10:35 AM CDT Pulse 96 02/23/2016 4:00 PM CDT Temperature 36.7 C (98.1 F) 02/23/2016 4:00 PM CDT Respiratory Rate 16 02/23/2016 11:42 AM CDT [...] - COLON CA SCREENING 1965 MAMMOGRAM 1965 MEDICARE AWV 12 MONTHS 1965 PAP SMEAR 1965 HIV SCREENING 1980 HEPATITIS C SCREENING 07/05/1983 DTAP/TDAP/TD VACCINES (1 - Tdap) 1984 HEPATITIS B VACCINE (1 of 3 - 19+ 3-dose series) 1984 PNEUMOCOCCAL VACCINE 50+ (1 of 1 - PCV) 2015 ZOSTER VACCINE (1 of 2) 2015 COVID-19 VACCINE (1 - 2023-2 5 season) 2024 DEPRESSION SCREENING 07/04/2024 INFLUENZA VACCINE (Season Ended) 2025 HIB VACCINE Aged Out No longer eligi ble based on patient's age to complete this topic HPV VACCINE Aged Out No longer eligi ble based on patient's age to complete this topic MENINGOCOCCAL (Group B) VACC INE SHARED DECISION-MAKING Aged Out No longer eligibl e based on patient's age to complete this topic MENINGOCOCCAL GROUPS A/C/Y/W VACCINE Aged Out No longer eligible b ased on patient's age to complete this topic Insurance [employer] MEDICARE [facility] MEDICARE SELF PAY NO INSURANCE Member Subscriber Plan / Payer (Ef fective for All Dates) Name:Abiodun Buchanan Member ID:Not on file Relation to Subscriber:Not on file Name:ABIODUN BUCHANAN Subscriber ID:Not on file (Home) Address: [address] [place] [id number] Payer ID:Not on file Group ID:Not on file Type:Self Pay Address: [place], [place] Advance Directives * Full Code (Latest Code Status on File) Date Activated Date Inactivated Comments 02/23/2016 11:33 AM 02/23/2016 7:30 PM Care Teams Maintenance Mechanic Supervisor Relationship Specialty Start Date End Date Warren Cowan MD [address] [place] [address] PCP - General Family Medicine 02/20/16
--- OUTSIDE RECORDS SUMMARY | 2024-11-20 11:03 | XMS_ITS | Clinical Summary ---
Author Organization [facility] [address] Address [address] [place] [address] Care Team Providers Care Pressroom Foreman Name Role Phone Warren Cowan MD Primary [...] Problem Noted Date Diagnosed Date Seizure disorder 03/09/2017 Near syncope 12/13/2016 Systemic lupus erythematosus-related syndrome Overview (10/08/2016): SLE (systemic lupus erythematosus related syndrome) Status post placement of implantable loop record er 08/04/2015 Overview (02/18/2017): [employer] reveal implantable loop recorder Dx; Syncope. DOI 03/11/2015. Carelink remote home monitoring Q35-45 days. 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 Gender Identity Not on file Sexual Orientation Not on file Obstetrics History Last Filed Vital Signs Vital Sign Reading Time Taken Comments Blood Pressure 126/76 08/28/2019 2:17 PM SERVICE CENTER SPECIALIST Pulse 64 08/28/2019 2:17 PM SERVICE CENTER SPECIALIST Temperature - - Respiratory Rate 16 03/09/2017 2:37 PM CDT Oxygen Saturation 96% 08/28/2019 2:17 PM SERVICE CENTER SPECIALIST Inhaled Oxygen Concentration - - Weight 96.6 kg (213 lb) 08/28/2019 2:17 PM SERVICE CENTER SPECIALIST Height 165.1 cm (5' 5 ) 08/28/2019 2:17 PM SERVICE CENTER SPECIALIST Body Mass Index 35.45 08/28/2019 2:17 PM SERVICE CENTER SPECIALIST Plan of Treatment Not on file Medical Devices Implanted Type Area Water Mangle Tender Device Identifier Shelf Expiration Date Model / Serial / Lot Implantable Loop Recorder Implantable Loop Recorder Chest [employer] [place] [address] [facility] EMERGENCY DEPARTMENT Care Teams Pressroom Foreman Relationship Specialty Start Date End Date Warren Cowan MD [address] [place] [address] PCP - General 10/01/16
--- OUTSIDE RECORDS SUMMARY | 2024-11-20 11:03 | XMS_ITS | Continuity of Care Document ---
Author Organization [facility] Address [address] [place] [address] Phone Care Team Providers Care Behavior Interventionist Name Role Phone Jasper Prescott Unavailable Unavailable [...] Copied on Encounter Office/outpat ient Visit, Est [facility], [address] [place] [address] [address], [place], [place], [id number], [place] tel:[phone] [facility] No Information 1-201 0 Krishnasamy Jasper. [address] [facility] [address], [place], [address], [place]. tel:[phone] [facility], [address], [place], [place], [id number], [place] tel:[phone] [facility] No Information 2-200 9 Krishnasamy Jasper. [address] [facility] [address], [place], [place], [facility], [place]. tel:[phone] Referring Provider: Jasper wilson, [facility] [address], [place], [place], [facility]. tel:[phone] [facility] Eye [facility], [address], [place], [place], [id number], [place] tel:[phone] [facility] No Information 3-200 9 Krishnasamy Jasper. [facility] [address], [place], [place], [facility], [place]. tel:[phone] [facility], [address] [place] [address] [address], [place], [place], [id number], [place] tel:[phone] [facility] No Information 9-200 9 Carlos OD Chetan. [address] [place] [address] Dr, [address], [place], [place], [facility], [place]. tel:[phone] Office/outpat ient Visit, [facility], [address] [place] [address] [address], [place], [place], [id number], [place] tel:[phone] [facility] No Information 4-200 9 Krishnasamy Jasper. [address] [place] [address] 102, [place], [facility], [place]. tel:[phone] [facility] Eye [facility], [address] [place] [address] [address], [place], [place], [id number], [place] tel:[phone] [facility] No Information 3-200 9 Krishnasamy Jasper. [address] [place] [address] [address], [place], [facility], [place]. tel:[phone] Office/outpat ient Visit, Est [facility] Eye [facility], [address], [place], [place], [id number], [place] tel:[phone] [facility] No Information Dec-0 9-200 8 Krishnasamy Jasper. [facility] [address], [facility], [place]. tel:[phone] Office/outpat ient Visit, [facility] Eye [facility], [address] [place] [address] [address], [place], [place], [id number], [place] tel:[phone] [facility] No Information Chava-1 3-200 8 Krishnasamy Jasper. [address] [place] [address], [facility], [place]. tel:[phone] Office/outpat ient Visit, [facility] Eye [facility], [address] [place] [address] [address], [place], [place], [id number], tel:[phone] [facility] No Information May-0 2-200 8 Krishnasamy Jasper. [address] [place] [address], [facility], [place]. tel:[phone] Office/outpat ient Visit, [facility], [address] [place] [address] [address], [place], [place], [id number], [place] tel:[phone] [facility] No Information Mar-2 8-200 8 Krishnasamy Jasper. [address] [place] [address], [facility], [place]. tel:[phone] [facility] Eye [facility], [address] [place] [address] [address], [place], [place], [id number], [place] tel:[phone] [facility] No Information Mar-2 5-200 8 Krishnasamy Jasper. [address] [place] [address], [facility], [place]. tel:[phone] Family History Family Member Type Diagnosis Age At Onset No Information Payers Payer name Insurance type Covered constitution party ID Authoriza tion(s) No Information Social History [...]
--- OUTSIDE RECORDS SUMMARY | 2024-11-20 11:03 | XMS_ITS | Encounter Summary ---
Author Organization [facility] Address [address] [place] [address] Care Team Providers Care Childcare Director Name Role Phone Warren Cowan MD Primary Care Prov ider Encounter Details Date Type Department Care Team (Late st Contact Info) Description 10/24/2016 [facility] Only [facility] ProviderRavi MD [facility] [place] [address] Social History Tobacco Use Types Packs/Day Years Used Date Smoking Tobacco: Former Alcohol Use Standard Drinks/Week Comments No 0 (1 standard drink = 0.6 oz pur e alcohol) Comments Unknown Sex and Gender Information Value Date Recorded Sex Assigned at Not on file Legal Sex Female 3:44 AM INSPECTOR FILTER TIP Gender Identity Not on file Sexual Orientation [...] on filedocumented in this encounter Care Teams Childcare Director Relationship Specialty Start Date End Date Warren Cowan MD [address] [place] [address] PCP - General 10/01/16 documented as of this encounter
--- OUTSIDE RECORDS SUMMARY | 2024-11-20 11:03 | XMS_ITS | Referral Summary ---
Author Organization [facility] [address] Address [address] [place] [address] Care Team Providers Care Spanish Medical Interpreter Name Role Phone Warren Cowan MD Primary [...] implantable loop record er 08/04/2015 Overview (02/18/2017): [employer] reveal implantable loop recorder Dx; Syncope. DOI [...] on file Legal Sex Female 3:44 AM AIR CARGO GROUND CREW SUPERVISOR Gender Identity Not on file Sexual Orientation Not on file Last Filed Vital Signs Vital Sign Reading Time Taken Comments Blood Pressure 126/76 08/28/2019 2:17 PM AIR CARGO GROUND CREW SUPERVISOR Pulse 64 08/28/2019 2:17 PM AIR CARGO GROUND CREW SUPERVISOR Temperature - - Respiratory Rate 16 03/09/2017 2:37 PM CDT Oxygen Saturation 96% 08/28/2019 2:17 PM AIR CARGO GROUND CREW SUPERVISOR Inhaled Oxygen Concentration - - Weight 96.6 kg (213 lb) 08/28/2019 2:17 PM AIR CARGO GROUND CREW SUPERVISOR Height 165.1 cm (5' 5 ) 08/28/2019 2:17 PM AIR CARGO GROUND CREW SUPERVISOR Body Mass Index 35.45 08/28/2019 2:17 PM AIR CARGO GROUND CREW SUPERVISOR Plan of Treatment Not on file Medical Devices Implanted Type Area Counter Attendant Device Identifier Shelf Expiration Date Model / Serial / Lot Implantable Loop Recorder Implantable Loop Recorder Chest [employer] Insurance [facility]IC[facility] Care Teams Spanish Medical Interpreter Relationship Specialty Start Date End Date Warren Cowan MD [address] [place] [address] PCP - General 10/01/16
--- OUTSIDE RECORDS SUMMARY | 2024-11-20 11:03 | XMS_ITS | Encounter Summary ---
Author Organization [facility] Address [address] [place] [address] Care Team Providers Care Electrical Test Technician Name Role Phone Warren Cowan MD Primary Care Prov ider Warren Cowan MD Primary Care Prov ider Encounter Details Date Type Department Care Team (Late st Contact Info) Description 06/17/2016 [facility] Only [facility] ProviderRavi MD [address] [place] [phone] Social History Tobacco Use Types Packs/Day Years Used Date Smoking Tobacco: Former Alcohol Use Standard Drinks/Week Comments No 0 (1 standard drink = 0.6 oz pur e alcohol) Comments Unknown Sex and Gender Information Value Date Recorded Sex Assigned at Not on file Legal Sex Female 3:44 AM LAB CLERK Gender Identity Not on file Sexual Orientation [...] filedocumented in this encounter Care Teams Electrical Test Technician Relationship Specialty Start Date End Date Warren Cowan MD [address] [place] [address] PCP - General 10/01/16 Warren Cowan MD [address] [place] [address] PCP - General 06/26/15 09/30/16 documented as of this encounter
--- OUTSIDE RECORDS SUMMARY | 2024-11-20 11:03 | XMS_ITS | Encounter Summary ---
Author Organization [facility] Address [address] [place] [address] Care Team Providers Care Power Lineworker Name Role Phone Warren Cowan MD Primary Care Prov ider Warren Cowan MD Primary Care Prov ider Encounter Details Date Type Department Care Team (Late st Contact Info) Description 07/29/2016 Orders Only [facility] ProviderRavi MD [address] [place] [address] [phone] Social History Tobacco Use Types Packs/Day Years Used Date Smoking Tobacco: Former Alcohol Use Standard Drinks/Week Comments No 0 (1 standard drink = 0.6 oz pur e alcohol) Comments Unknown Sex and Gender Information Value Date Recorded Sex Assigned at Not on file Legal Sex Female 3:44 AM SENIOR ACCOUNTING CLERK Gender Identity Not on file Sexual [...] on filedocumented in this encounter Care Teams Power Lineworker Relationship Specialty Start Date End Date Warren Cowan MD [address] [place] [address] PCP - General 10/01/16 Warren Cowan MD [address] [place] [address] PCP - General 06/26/15 09/30/16 documented as of this encounter
--- NOTE | 2024-11-20 12:28 | ED.GENADULT ---
HPI - General Adult General Chief complaint: Unspecified Stated complaint: bleeding from belly button Time Seen by Provider: 11/20/24 11:58 History of Present Illness HPI narrative: 59-year-old female present to the emergency department for evaluation for head injury add abdominal pain. Patient had a fall on Tuesday due to chronic gait instability and patient struck her head and left side of her face. Patient states she also began having periumbilical abdominal pain yesterday and did have some blood around her umbilicus. Patient does complain pain below the umbilicus. Patient denies any nausea vomiting diarrhea. Related Data Home Medications ?Medication ?Instructions ?Recorded ?Confirmed ?Last Taken ?Type aspirin 81 mg tablet 81 mg PO DAILY 10/06/20 10/05/24 10/03/20 History Allergies Allergy/AdvReac Type Severity Reaction Status Date / Time No Known Allergies Allergy Verified 10/05/24 11:34 Review of Systems Review of Systems: All systems reviewed & are unremarkable except as noted in HPI and below PMFSH Past Medical History Medical History Aortic atherosclerosis COPD (chronic obstructive pulmonary disease) pulmonary function test 05/09/2019 Hepatic steatosis Multiple sclerosis Obesity Sjogrens syndrome SLE (systemic lupus erythematosus) Surgical History Surgical History History of carpal tunnel surgery of left wrist History of cholecystectomy History of total hysterectomy Hx of cystoscopy Family History Family History Father Diabetes mellitus History of multiple strokes Pacemaker Hypertension Liver cancer Heart problem Mother Hypertension History of multiple strokes Diabetes mellitus Other Alzheimer disease Bladder cancer Heart disease Hypothyroid Social History Social History Smoking packs per day: 0.5 Smoking cigarettes per day: 10.0 Years smoked: 5 Smoking pack-years: 2.50 Smoking status: Former smoker Tobacco type: cigarettes Second hand tobacco smoke exposure: No Smoking end date: 07/04/90 Alcohol intake: never Substance use: never Substance use type: does not use Living arrangements: with family Occupation/Education: retired Gender identity (if verbalized by the patient): Female Sexual Orientation (if Verbalized by the Patient): Straight or Heterosexual Spiritual care concerns: No Agree to blood products: Yes Exam Narrative: APPEARANCE: Well appearing, no pain, no distress, well-nourished. HEAD: normocephalic, left-sided facial hematoma. EYES: PERRLA/EOMI, conjunctivae clear. NOSE: Normal no drainage EARS:TMS clear with good light reflex. THROAT: Pharynx clear, no exudate. NECK: Supple. No adenopathy, no masses. RESPIRATORY: Airway patent, respirations nonlabored. Clear to auscultation bilaterally, no rales, rhonchi, wheezing. CARDIOVASCULAR: Regular rate and rhythm without murmurs rubs or gallops. ABDOMINAL: Periumbilical abdominal pain tenderness to palpation MUSCULOSKELETAL: Moves all extremities. Strength/ROM intact, No edema, No calf tenderness. NEURO: Alert. Cranial nerves II through XII intact. Grossly intact SKIN: Small scratch within the umbilicus Course Vital Signs Vital signs: Vital Signs Temperature 97.7 F 11/20/24 10:50 Pulse Rate 65 11/20/24 10:50 Respiratory Rate 18 11/20/24 10:50 Blood Pressure 136/71 11/20/24 10:50 Pulse Oximetry 96 11/20/24 10:50 Oxygen Delivery Room Air 11/20/24 10:50 Temperature 97.7 F 11/20/24 10:50 Pulse Rate 80 11/20/24 14:16 Respiratory Rate 16 11/20/24 14:16 Blood Pressure 132/69 11/20/24 14:16 Pulse Oximetry 97 11/20/24 14:30 Oxygen Delivery Room Air 11/20/24 10:50 Medical Decision Making [facility] Narrative Medical decision making narrative: 59-year-old female presents emergency department for evaluation for left-sided facial injury and periumbilical abdominal pain. Patient is afebrile with no leukocytosis and hemoglobin of 15.3. Patient's INR was 1.0. Patient has no significant acute abnormalities on her CMP CT head face and neck were negative for acute abnormality and CT abdomen pelvis does show evidence of a fat containing umbilical hernia with some induration of the skin with no other acute pathology. Patient does have possible overlying cellulitis the patient will be started on Keflex. Side of the bleeding is thought to be secondary within the umbilicus. Patient family updated on results of the workup they are comfortable the plan for discharge and close follow-up. Differential Diagnosis Differential Diagnosis: TIA, CVA, facial contusion, cervical spine fracture, cellulitis, diverticulitis, colitis, hernia Vital Signs Vital Signs: Vital Signs Temperature 97.7 F 11/20/24 10:50 Pulse Rate 65 11/20/24 10:50 Respiratory Rate 18 11/20/24 10:50 Blood Pressure 136/71 11/20/24 10:50 Pulse Oximetry 96 11/20/24 10:50 Oxygen Delivery Room Air 11/20/24 10:50 Temperature 97.7 F 11/20/24 10:50 Pulse Rate 80 11/20/24 14:16 Respiratory Rate 16 11/20/24 14:16 Blood Pressure 132/69 11/20/24 14:16 Pulse Oximetry 97 11/20/24 14:30 Oxygen Delivery Room Air 11/20/24 10:50 Lab Data Lab results reviewed: Yes I reviewed the patient's lab results. 11/20/24 12:45 11/20/24 12:44 Labs: Lab Results 11/20/24 11/20/24 Range/Units 12:44 12:45 WBC 9.0 (4.5-10.0) K/mm3 RBC 4.58 (4.2-5.4) M/mm3 Hgb 15.3 H (12.0-15.0) g/dL Hct 46.4 (37.0-47.0) % MCV 101.3 H (80-100) fl MCH 33.4 (26-34) pg MCHC 33.0 (32-36) g/dl RDW 13.5 (11.5-14.5) % Plt Count 140 L (150-375) k/mm3 MPV 13.2 H (7.4-10.4) fl Immature Gran % (Auto) 0.3 (0-0.5) % Neut % (Auto) 61.7 (45.5-73.1) % Lymph % (Auto) 28.5 (18.3-44.2) % [place] % (Auto) 7.6 (2.6-8.5) % Eos % (Auto) 1.3 (0-4.4) % Baso % (Auto) 0.6 (0.2-1.2) % Lymph # (Auto) 2.56 (0.9-3.2) K/mm3 [place] # (Auto) 0.7 H (0.1-0.6) K/mm3 Eos # (Auto) 0.1 (0-0.3) K/mm3 Baso # (Auto) 0.1 (0.0-0.1) K/mm3 Abs Immat Gran (auto) 0.03 (0.00-0.031) K/mm3 Absolute Neuts (auto) 5.5 (1.3-6.7) K/mm3 Absolute Nucleated RBC 0.000 (0.0-0.012) K/mm3 Nucleated RBC % 0.0 (0.0-0.2) % % Immature Plt Fraction 16.2 H (0.9-11.2) % PT 13.4 (11.1-14.7) Seconds INR 1.0 APTT 24.0 (22.3-36.8) Seconds Sodium 141 (137-145) mmol/L Potassium 3.7 (3.4-5.0) mmol/L Chloride 100 (98-107) mmol/L Carbon Dioxide 36 H (22-30) mmol/L Anion Gap 5 (4-12) mmol/L BUN 22 H (7-17) mg/dL Creatinine 1.08 H (0.7-1.0) mg/dL Estim Creat Clear Calc 54 ml/min Estimated GFR 52 L (59 - ) Glucose 136 H (65-110) mg/dL Calcium 9.0 (8.4-10.2) mg/dL Total Bilirubin 0.8 (0.2-1.3) mg/dL AST 36 (14-36) U/L ALT 44 H (6-35) U/L Alkaline Phosphatase 165 H (38-126) U/L Total Protein 7.0 (6.3-8.2) g/dL Albumin 3.9 (3.5-5.1) g/dL Imaging Data Radiologist's impression: Impressions Head CT 11/20/24 13:37 IMPRESSION: No acute intracranial findings. Head/Cervical Spine/Facial Bones CT 11/20/24 13:49 IMPRESSION: No facial fracture. CT facial & cervical spine wo Ordering provider: Bao Rogel MD History: . trauma . Comparison: None. Technique: CT of the cervical spine was performed without contrast. Sagittal and coronal reformatted images were also obtained and reviewed. Automated exposure control and iterative reconstruction technique were employed. The dose-length product was 576.76 mGy-cm. FINDINGS: VERTEBRAE: No subluxation or acute fracture. The occipital condyles are intact. Degenerative changes of the spine. DISC SPACES: Narrowing of the disc C3-C4, C4-C5 and C5-C6 and C6-C7. Multilevel facet joint disease. Multilevel uncovertebral joint osteoarthritic changes. Narrowing of the right foramen at the level of C3-C4, C4-C5 and C5-C6. Bilateral narrowing of the level of C6-C7. 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 Focus of calcification the right thyroid. IMPRESSION: No acute osseous abnormality cervical spine. Multilevel degenerative disc disease. Abdomen/Pelvis CT 11/20/24 14:07 IMPRESSION: No hollow or solid visceral organ injury. No acute fractures. Fatty infiltration of the liver. Induration of the superficial soft tissues overlying a fat-containing umbilical hernia, as detailed above. Discharge Plan Discharge Clinical Impression: Head injury, Cellulitis, umbilical Patient Disposition: Home Condition: Stable Instructions: Antibiotic Form, Cellulitis (ED), Head Injury (DC) Additional Instructions: Antibiotic as directed until completed. Have close follow-up with your primary care physician. Follow head injury guidelines. Patient Language: Kenyan Prescriptions: New cephalexin 500 mg capsule 500 mg PO Q8H 7 Days Qty: 21 0RF No Action metoclopramide HCl 10 mg tablet See Rx Instructions PO Q6H Qty: 30 0RF Rx Instructions: Take 1 before meals and at bedtime orally every 6 hours; aspirin 81 mg Tablet 81 mg PO DAILY Trelegy Ellipta 100-62.5-25 mcg blister with device See Rx Instructions .ROUTE .COMPLEX Qty: 60 5RF Dose Instruction: INHALE 1 PUFF BY MOUTH ONCE DAILY Rx Instructions: INHALE 1 PUFF BY MOUTH ONCE DAILY lorazepam 1 mg tablet 1 mg PO BID PRN (Reason: anxiety) Qty: 60 5RF propranolol 20 mg tablet See Rx Instructions .ROUTE .COMPLEX Qty: 180 3RF Dose Instruction: TAKE 1 TABLET BY MOUTH TWICE A DAY Rx Instructions: TAKE 1 TABLET BY MOUTH TWICE A DAY pantoprazole 40 mg tablet,delayed release (DR/EC) See Rx Instructions .ROUTE .COMPLEX Qty: 180 1RF Dose Instruction: TAKE 1 TABLET BY MOUTH TWICE A DAY Rx Instructions: TAKE 1 TABLET BY MOUTH TWICE A DAY atorvastatin 40 mg tablet 40 mg PO QHS Qty: 90 1RF methotrexate sodium 2.5 mg tablet See Rx Instructions .ROUTE .COMPLEX Qty: 39 1RF Dose Instruction: TAKE 3 TABLETS BY MOUTH ONCE WEEKLY Rx Instructions: TAKE 3 TABLETS BY MOUTH ONCE WEEKLY clonazepam 1 mg tablet 1 mg PO QHS Qty: 30 5RF Rx Instructions: administer 30 minutes before bedtime diclofenac sodium 75 mg tablet,delayed release (DR/EC) See Rx Instructions .ROUTE .COMPLEX Qty: 60 7RF Dose Instruction: TAKE 1 TABLET BY MOUTH TWICE A DAY Rx Instructions: TAKE 1 TABLET BY MOUTH TWICE A DAY methylprednisolone 4 mg tablet See Rx Instructions .ROUTE .COMPLEX Qty: 90 1RF Dose Instruction: TAKE 1 TABLET BY MOUTH DAILY Rx Instructions: TAKE 1 TABLET BY MOUTH DAILY levetiracetam 500 mg tablet See Rx Instructions .ROUTE .COMPLEX Qty: 540 1RF Dose Instruction: TAKE 3 TABLETS BY MOUTH TWICE DAILY Rx Instructions: TAKE 3 TABLETS BY MOUTH TWICE DAILY baclofen 20 mg tablet See Rx Instructions .ROUTE .COMPLEX Qty: 90 1RF Dose Instruction: TAKE 1 TABLET (20 MG) BY MOUTH EVERY DAY AT BEDTIME Rx Instructions: TAKE 1 TABLET (20 MG) BY MOUTH EVERY DAY AT BEDTIME lorazepam 2 mg tablet 1 mg PO BID PRN (Reason: anxiety) Qty: 30 4RF midodrine 2.5 mg tablet See Rx Instructions .ROUTE .COMPLEX Qty: 270 1RF Dose Instruction: TAKE 1 TAB BY MOUTH 3 TIMES A DAY *DO NOT GIVE LAST DOSE AFTER 6PM OR WITHIN 4 HOURS OF BEDTIME Rx Instructions: TAKE 1 TAB BY MOUTH 3 TIMES A DAY *DO NOT GIVE LAST DOSE AFTER 6PM OR WITHIN 4 HOURS OF BEDTIME folic acid 1 mg tablet 1 mg PO DAILY Qty: 90 3RF ergocalciferol (vitamin D2) [Vitamin D2] 1,250 mcg (50,000 unit) capsule 50,000 unit PO MONTHLY Qty: 3 3RF topiramate 25 mg tablet See Rx Instructions .ROUTE .COMPLEX Qty: 90 2RF Dose Instruction: TAKE 1 TABLET BY MOUTH EVERYDAY AT BEDTIME Rx Instructions: TAKE 1 TABLET BY MOUTH EVERYDAY AT BEDTIME hydrocodone-acetaminophen 10-325 mg tablet 0.5 tablet PO Q6H PRN (Reason: pain) Qty: 50 0RF sucralfate 1 gram tablet See Rx Instructions .ROUTE .COMPLEX Qty: 120 1RF Dose Instruction: TAKE 1 TABLET BY MOUTH FOUR TIMES A DAY Rx Instructions: TAKE 1 TABLET BY MOUTH FOUR TIMES A DAY meclizine 25 mg tablet See Rx Instructions .ROUTE .COMPLEX Qty: 100 3RF Dose Instruction: TAKE 1 TABLET BY MOUTH 4 TIMES A DAY NEEDED FOR DIZZINESS Rx Instructions: TAKE 1 TABLET BY MOUTH 4 TIMES A DAY NEEDED FOR DIZZINESS solifenacin 10 mg tablet 10 mg PO DAILY Qty: 90 3RF furosemide 40 mg tablet 80 mg PO DAILY Qty: 90 1RF pregabalin 150 mg capsule 150 mg PO TID Qty: 90 5RF Follow-up/Referrals: Warren Cowan MD [Primary Care Provider] -
[2024-11-20] MEDS: ACETAMINOPHEN 500 MG TABLET 1000 MG PO (12:36)
--- OUTSIDE RECORDS SUMMARY | 2024-11-20 12:46 | XMS_ITS | Encounter Summary ---
Author Organization [facility] Address [address] [place] [address] Care Team Providers Care Assembler Liquid Center Name Role Phone Warren Cowan MD Primary Care Prov ider Warren Cowan MD Primary Care Prov ider Encounter Details Date Type Department Care Team (Late st Contact Info) Description 06/17/2016 Orders Only [facility] ProviderRavi MD [address] [place] [phone] Social History Tobacco Use Types Packs/Day Years Used Date Smoking Tobacco: Former Alcohol Use Standard Drinks/Week Comments No 0 (1 standard drink = 0.6 oz pur e alcohol) Comments Unknown Sex and Gender Information Value Date Recorded Sex Assigned at Not on file Legal Sex Female 3:44 AM RADIO PRESENTER Gender Identity Not on file Sexual Orientation [...] on filedocumented in this encounter Care Teams Assembler Liquid Center Relationship Specialty Start Date End Date Warren Cowan MD [address] [place] [address] PCP - General 10/01/16 Warren Cowan MD [address] [place] [address] PCP - General 06/26/15 09/30/16 documented as of this encounter
--- OUTSIDE RECORDS SUMMARY | 2024-11-20 12:46 | XMS_ITS | Referral Summary ---
Author Organization [facility] [address] Address [address] [place] [address] Care Team Providers Care Lime Boiler Name Role Phone Warren Cowan MD Primary [...] implantable loop record er 08/04/2015 Overview (02/18/2017): [employer] reveal implantable loop recorder Dx; Syncope. DOI [...] on file Legal Sex Female 3:44 AM ENGINEERED WOOD DESIGNER Gender Identity Not on file Sexual Orientation Not on file Last Filed Vital Signs Vital Sign Reading Time Taken Comments Blood Pressure 126/76 08/28/2019 2:17 PM ENGINEERED WOOD DESIGNER Pulse 64 08/28/2019 2:17 PM ENGINEERED WOOD DESIGNER Temperature - - Respiratory Rate 16 03/09/2017 2:37 PM CDT Oxygen Saturation 96% 08/28/2019 2:17 PM ENGINEERED WOOD DESIGNER Inhaled Oxygen Concentration - - Weight 96.6 kg (213 lb) 08/28/2019 2:17 PM ENGINEERED WOOD DESIGNER Height 165.1 cm (5' 5 ) 08/28/2019 2:17 PM ENGINEERED WOOD DESIGNER Body Mass Index 35.45 08/28/2019 2:17 PM ENGINEERED WOOD DESIGNER Plan of Treatment Not on file Medical Devices Implanted Type Area Layer Out Device Identifier Shelf Expiration Date Model / Serial / Lot Implantable Loop Recorder Implantable Loop Recorder Chest [employer] Insurance MEDICARE [facility] Care Teams Lime Boiler Relationship Specialty Start Date End Date Warren Cowan MD [address] [place] [address] PCP - General 10/01/16
--- OUTSIDE RECORDS SUMMARY | 2024-11-20 12:46 | XMS_ITS | Encounter Summary ---
Author Organization [facility] Address [address] [place] [address] Care Team Providers Care Pbx Operator Name Role Phone Warren Cowan MD Primary Care Prov ider Encounter Details Date Type Department Care Team (Late st Contact Info) Description 10/24/2016 Orders Only [facility] ProviderRavi MD [facility] [place] [address] Social History Tobacco Use Types Packs/Day Years Used Date Smoking Tobacco: Former Alcohol Use Standard Drinks/Week Comments No 0 (1 standard drink = 0.6 oz pur e alcohol) Comments Unknown Sex and Gender Information Value Date Recorded Sex Assigned at Not on file Legal Sex Female 3:44 AM HELICOPTER SPECIALIST Gender Identity Not on file Sexual [...] on filedocumented in this encounter Care Teams Pbx Operator Relationship Specialty Start Date End Date Warren Cowan MD [address] [place] [address] PCP - General 10/01/16 documented as of this encounter
--- OUTSIDE RECORDS SUMMARY | 2024-11-20 12:46 | XMS_ITS | Encounter Summary ---
Author Organization [facility] Address [address] [place] [address] Care Team Providers Care Qc Tech Name Role Phone Warren Cowan MD Primary Care Prov ider Warren Cowan MD Primary Care Prov ider Encounter Details Date Type Department Care Team (Late st Contact Info) Description 07/29/2016 Orders Only [facility] ProviderRavi MD [address] [place] [phone] Social History Tobacco Use Types Packs/Day Years Used Date Smoking Tobacco: Former Alcohol Use Standard Drinks/Week Comments No 0 (1 standard drink = 0.6 oz pur e alcohol) Comments Unknown Sex and Gender Information Value Date Recorded Sex Assigned at Not on file Legal Sex Female 3:44 AM RETAIL MARKETING SPECIALIST Gender Identity Not on file Sexual [...] on filedocumented in this encounter Care Teams Qc Tech Relationship Specialty Start Date End Date Warren Cowan MD [address] [place] [address] PCP - General 10/01/16 Warren Cowan MD [address] [place] [address] PCP - General 06/26/15 09/30/16 documented as of this encounter
--- OUTSIDE RECORDS SUMMARY | 2024-11-20 12:46 | XMS_ITS | Continuity of Care Document ---
Author Organization [facility] Address [address] [facility] [address] [place] [address] Phone Care Team Providers Care Seed Production Field Supervisor Name Role Phone Jasper Prescott Unavailable Unavailable [...] Copied on Encounter Office/outpat ient Visit, Est [facility], [address] [place] [address] [address], [place], [place], [id number], [place] tel:[phone] SEC [facility] No Information 1-201 0 Krishnasamy Jasper. [address] [facility] [address], [place], [address], [place]. tel:[phone] [facility], [address], [place], [place], [id number], [place] tel:[phone] SEC [facility] [place] No Information 2-200 9 Krishnasamy Jasper. 24[address] [facility] [address], [place], [place], [facility], [place]. tel:[phone] Referring Provider: Jasper wilson, [facility] [address], [place], [place], [facility]. tel:[phone] [facility], [address], [place], [place], [id number], [place] tel:[phone] SEC [facility] No Information 3-200 9 Krishnasamy Jasper. [facility] [address], [place], [facility], [place]. tel:[phone] [facility], [address] [place] [address] [address], [place], [place], [id number], [place] tel:[phone] SEC [facility] No Information 9-200 9 Carlos OD Chetan. [address] [place] [address] Dr, [address], [place], [facility], [place]. tel:[phone] Office/outpat ient Visit, Est [facility], [address] [place] [address] [address], [place], [place], [id number], [place] tel:[phone] SEC [facility] No Information 4-200 9 Krishnasamy Jasper. [address] [place] [address] [address], [place], [facility], [place]. tel:[phone] [facility], [address] [place] [address] [address], [place], [place], [address], [place] tel:[phone] SEC [facility] No Information 3-200 9 Krishnasamy Jasper. [address] [place] [address] [address], [place], [facility], [place]. tel:[phone] Office/outpat ient Visit, Est [facility], [address], [place], [place], [id number], [place] tel:[phone] SEC [facility] No Information Dec-0 9-200 8 Krishnasamy Jasper. [facility] [address], [facility], [place]. tel:[phone] Office/outpat ient Visit, [facility], [address] [place] [address] [address], [place], [place], [id number], [place] tel:[phone] [facility] No Information Chava-1 3-200 8 Krishnasamy Jasper. [address] [place] [address], [facility], [place]. tel:[phone] Office/outpat ient Visit, [facility], [address] [place] [address] [address], [place], [place], [id number], tel:[phone] [facility] No Information May-0 2-200 8 Krishnasamy Jasper. [address] [place] [address], [facility], [place]. tel:[phone] Office/outpat ient Visit, [facility], [address] [place] [address] [address], [place], [place], [address], [place] tel:[phone] [facility] No Information Mar-2 8-200 8 Krishnasamy Jasper. [address] [place] [address], [facility], [place]. tel:[phone] [facility], [address] [place] [address] [address], [place], [place], [id number], [place] tel:[phone] SEC [facility] No Information Mar-2 5-200 8 Krishnasamy Jasper. [address] [place] [address], [facility], [place]. tel:[phone] Family History Family Member Type Diagnosis Age At Onset No Information Payers Payer name Insurance type Covered green party ID Authoriza tion(s) No Information Social [...]
--- OUTSIDE RECORDS SUMMARY | 2024-11-20 12:46 | XMS_ITS | Clinical Summary ---
Author Organization [facility] Address [address] [place] [address] Care Team Providers Care Forming Tube Selector Name Role Phone Warren Cowan MD Primary Care Provider + Source Comments [facility] [employer],non-owned Affiliates and Associated Physician Practices is amultiple site organization consisting of ambulatory clinics and hospital sitesin [place], [place], [place] and [place]. This disclosure is being madepursuant to the Care Everywhere program and may not contain all information available regarding this patient. Last updated 18.[facility] [employer] Allergies No known active allergies Medications * [...] to complete this topic Insurance [employer] MEDICARE [facility] MEDICARE SELF PAY NO INSURANCE Member Subscriber Plan / Payer (Ef fective for All Dates) Name:Abiodun Buchanan Member ID:Not on file Relation to Subscriber:Not on file Name:ABIODUN BUCHANAN Subscriber ID:Not on file (Home) Address: [address] [place] [id number] Payer ID:Not on file Group ID:Not on file Type:Self Pay Address: [place], [place] Advance Directives * Full Code (Latest Code Status on File) Date Activated Date Inactivated Comments 02/23/2016 11:33 AM 02/23/2016 7:30 PM Care Teams Forming Tube Selector Relationship Specialty Start Date End Date Warren Cowan MD [address] [place] [address] PCP - General Family Medicine 02/20/16
--- OUTSIDE RECORDS SUMMARY | 2024-11-20 12:46 | XMS_ITS | Clinical Summary ---
Author Organization [facility] Address [address] [place] [address] Care Team Providers Care Varnish Maker Name Role Phone Warren Cowan MD Primary Care Provider [phone] Allergies No known active allergies Medications No [...] this topic Insurance MEDICARE AET Care Teams Varnish Maker Relationship Specialty Start Date End Date Warren Cowan MD [address] [address] PCP - General FAMILY PRACTICE 02/27/19
--- OUTSIDE RECORDS SUMMARY | 2024-11-20 12:46 | XMS_ITS | Clinical Summary ---
Author Organization [facility] Weller Address [address] [place] [address] Care Team Providers Care Other Sports Coach Or Instructor Name Role Phone Warren Cowan MD Primary Care Provider [phone] Allergies No known active allergies Medications levETIRAcetam [...] mouth. Activ e naloxone (NARCAN) 4 mg/spray [place], Non-Aerosol EMERGENCY USE ONLY: Administer 1 spray [...] Comments Blood Pressure 102/64 06/18/2024 10:55 AM AGRONOMY INSTRUCTOR Pulse 55 06/18/2024 10:55 AM AGRONOMY INSTRUCTOR Temperature 36.5 C (97.7 F) 06/18/2024 10:55 AM AGRONOMY INSTRUCTOR Respiratory Rate 15 06/18/2024 10:5 5 AM AGRONOMY INSTRUCTOR Oxygen Saturation 97% 06/18/2024 10: 55 AM AGRONOMY INSTRUCTOR Inhaled Oxygen Concentration - - Weight 100.3 kg (221 lb 3.2 oz) 024 10:55 AM AGRONOMY INSTRUCTOR Height 157.5 cm (5' 2 ) 11/03/2021 3:41 PM CDT Body Mass Index 40.46 11/03/2021 3:41 PM CDT Plan of Treatment Upcoming Encounters Date Type Department Care Team (Late st Contact Info) Description 06/18/2025 10:00 AM AGRONOMY INSTRUCTOR Office Visit [facility] Oncology and Hematology - [place] [address] [facility] [address] [place] [address] Aki Guido MD [address] [facility] [address] [place] [address] Health Maintenance Due Date Last [...] 2) 2015 INFLUENZA VACCINE (#1) 2024 Insurance [facility] Address: [facility] [address] [place] [address] Care Teams Other Sports Coach Or Instructor Relationship Specialty Start Date End Date Warren Cowan MD PCP - General Family Practice 11/01/19
--- OUTSIDE RECORDS SUMMARY | 2024-11-20 12:46 | XMS_ITS | Clinical Summary ---
Author Organization [facility] [address] Address [address] [place] [address] Care Team Providers Care Machine Maintenance Supervisor Name Role Phone Warren Cowan MD [...] implantable loop record er 08/04/2015 Overview (02/18/2017): [employer] reveal implantable loop recorder Dx; Syncope. 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 Gender Identity Not on file Sexual Orientation Not on file Obstetrics History Last Filed Vital Signs Vital Sign Reading Time Taken Comments Blood Pressure 126/76 08/28/2019 2:17 PM CHARGE MASTER COORDINATOR Pulse 64 08/28/2019 2:17 PM CHARGE MASTER COORDINATOR Temperature - - Respiratory Rate 16 03/09/2017 2:37 PM CDT Oxygen Saturation 96% 08/28/2019 2:17 PM CHARGE MASTER COORDINATOR Inhaled Oxygen Concentration - - Weight 96.6 kg (213 lb) 08/28/2019 2:17 PM CHARGE MASTER COORDINATOR Height 165.1 cm (5' 5 ) 08/28/2019 2:17 PM CHARGE MASTER COORDINATOR Body Mass Index 35.45 08/28/2019 2:17 PM CHARGE MASTER COORDINATOR Plan of Treatment Not on file Medical Devices Implanted Type Area Senior Clinician Device Identifier Shelf Expiration Date Model / Serial / Lot Implantable Loop Recorder Implantable Loop Recorder Chest [employer] Insurance MEDICARE [facility] EM[facility]PART[facility] Care Teams Machine Maintenance Supervisor Relationship Specialty Start Date End Date Warren Cowan MD [address] [place] [address] PCP - General 10/01/16
--- OUTSIDE RECORDS SUMMARY | 2024-11-20 12:46 | XMS_ITS | Encounter Summary ---
Author Organization [facility] Address [facility] [place] [address] Care Team Providers Care Triple Drum Operator Name Role Phone Warren Cowan MD Primary Care Provider [phone]- [phone] Encounter Details Date Type Department Care Team (Late st Contact Info) Description 12/09/2018 Abstract SFL CONVERSION [address] [place] [address] , Generic Conversion, Social History Tobacco Use [...] on filedocumented in this encounter Care Teams Triple Drum Operator Relationship Specialty Start Date End Date Warren Cowan MD [address] [address] PCP - General FAMILY PRACTICE 02/27/19 documented as of this encounter
--- OUTSIDE RECORDS SUMMARY | 2024-11-20 12:46 | XMS_ITS | Encounter Summary ---
Author Organization [facility] Address [address] [facility] [address] [place] [address] Care Team Providers Care Manager Hris Name Role Phone Warren Cowan MD Primary Care Prov ider Warren Cowan MD Primary Care Prov ider Encounter Details Date Type Department Care Team (Late st Contact Info) Description 09/12/2016 Orders Only [facility] ProviderRavi MD [address] [place] [id number] Social History Tobacco Use Types Packs/Day Years Used Date Smoking Tobacco: Former Alcohol Use Standard Drinks/Week Comments No 0 (1 standard drink = 0.6 oz pur e alcohol) Comments Unknown Sex and Gender Information Value Date Recorded Sex Assigned at Not on file 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
[2024-11-20 12:54] LABS: Basophils Absolute Auto 0.1 K/mm3 (0.0-0.1); Basophils Percent Auto 0.6 % (0.2-1.2); Eosinophils Absolute Auto 0.1 K/mm3 (0-0.3); Eosinophils Percent Auto 1.3 % (0-4.4); Hematocrit 46.4 % (37.0-47.0); Hemoglobin 15.3 g/dL (12.0-15.0); Immature Granulocyte Absolute 0.03 K/mm3 (0.00-0.031); Immature Granulocyte Percent A 0.3 % (0-0.5); Immature Platelet Fraction Pct 16.2 % (0.9-11.2); Lymphocytes Absolute Auto 2.56 K/mm3 (0.9-3.2); Lymphocytes Percent Auto 28.5 % (18.3-44.2); Mean Corpuscular Hemoglobin 33.4 pg (26-34); Mean Corpuscular Volume 101.3 fl (80-100); Mean Platelet Volume 13.2 fl (7.4-10.4); Monocytes Absolute Auto 0.7 K/mm3 (0.1-0.6); Monocytes Percent Auto 7.6 % (2.6-8.5); Neutrophils Absolute Auto 5.5 K/mm3 (1.3-6.7); Neutrophils Percent Auto 61.7 % (45.5-73.1); Platelet Count Result 140 k/mm3 (150-375); Red Blood Count 4.58 M/mm3 (4.2-5.4); Red Cell Distribution Width 13.5 % (11.5-14.5)
[2024-11-20 13:02] LABS: Alanine Aminotransferase 44 U/L (6-35); Albumin Level 3.9 g/dL (3.5-5.1); Alkaline Phosphatase 165 U/L (38-126); Anion Gap 5 mmol/L (4-12); Aspartate Amino Transferase 36 U/L (14-36); Bilirubin,Total 0.8 mg/dL (0.2-1.3); Blood Urea Nitrogen 22 mg/dL (7-17); Carbon Dioxide 36 mmol/L (22-30); Chloride 100 mmol/L (98-107); Estimated CRCL calculation 54 ml/min; Estimated Glomerular Filt Rate 52; Glucose 136 mg/dL (65-110); Potassium 3.7 mmol/L (3.4-5.0); Sodium 141 mmol/L (137-145)
[2024-11-20 13:09] LABS: Prothrombin Time 13.4 Seconds (11.1-14.7)
== END 2024-11-20 14:51 | disposition home or self-care (01) ==
PROVIDERS: Emergency Provider Emergency Medicine; PCP Family Medicine Adolescent Medicine
DX: S00.83XA Contusion of other part of head, initial encounter (principal); L03.316 Cellulitis of umbilicus; J44.9 Chronic obstructive pulmonary disease, unspecified; I70.0 Atherosclerosis of aorta; G35 Multiple sclerosis; E66.9 Obesity, unspecified; Z68.34 Body mass index [BMI] 34.0-34.9, adult; R26.89 Other abnormalities of gait and mobility; K76.0 Fatty (change of) liver, not elsewhere classified; M35.00 Sjogren syndrome, unspecified; M32.9 Systemic lupus erythematosus, unspecified; Z90.710 Acquired absence of both cervix and uterus; Z90.49 Acquired absence of other specified parts of digestive tract; Z87.891 Personal history of nicotine dependence; M50.31 Other cervical disc degeneration, high cervical region; W18.39XA Other fall on same level, initial encounter
CPT/HCPCS: 36415; 70450; 70486; 72125; 74177; 80053; 85025; 85055; 85610; 85730; 99284; A9270; Q9967

== ENCOUNTER 2025-01-15 13:14 | Outpatient (CLI) | payer OTHER, SELFPAY ==
--- OUTSIDE RECORDS SUMMARY | 2025-01-15 13:20 | XMS_ITS | Clinical Summary ---
Author Organization [facility] Address [facility] [place] [address] Care Team Providers Care Recreation Manager Name Role Phone Mandie Schaefer EMERGENCY WORKER Primary Care Provider + [phone] Tonia Mcrae MD Unavailable Allergies No known active allergies Medications vitamin D2, ergocalcifero l, (DRISDOL) 1.25 mg capsule Take 1 capsule (1.25 mg total) by mouth every 30 (thirty) days. 12/27/19 25 Active solifenacin succinate (VESICARE) 10 MG Tab Take 1 tablet (10 mg total) by mouth daily. 10/26/19 25 Active pantoprazole EC (PROTONIX) 40 MG tablet Take 1 tablet (40 mg total) by mouth 2 (two) times daily. 11/28/19 25 Active sucralfate (CARAFATE) 1 G tablet Take 1 tablet (1 g total) by mouth 3 (three) times daily. 12/25/19 25 Active baclofen (LIORESAL) 20 MG tablet Take 1 tablet (20 mg total) by mouth nightly. 10/15/19 25 Active folic acid (FOLVITE) 1 MG tablet Take 1 tablet (1 mg total) by mouth daily. Active methotrexate (TREXALL) 2.5 MG tablet Take 3 tablets (7.5 mg total) by mouth once a week. Sundays11/23/19 25 Active meclizine (ANTIVERT) 25 MG tablet Take 1 tablet (25 mg total) by mouth 3 (three) times daily. Active topiramate (TOPAMAX) 25 MG tablet Take 1 tablet (25 mg total) by mouth nightly at bedtime. Active levETIRAcetam (KEPPRA) 500 MG tablet Take 3 tablets (1,500 mg total) by mouth 2 (two) times daily. Active pregabalin (LYRICA) 150 MG capsule Take 1 capsule (150 mg total) by mouth 3 (three) times daily. Active linezolid (ZYVOX) 600 MG tablet Take 1 tablet (600 mg total) by mouth 2 (two) times daily. 28 tablet 01/07/20 25 Active Blood Glucose Monitoring Suppl (D-CARE GLUCOMETER) w/Device KitIndication s:Hyperglycem ia 1 Units by Does not apply route daily. Please check morning daily fasting blood sugars. Pharmacy please dispense covered glucometer with appropriate test strips. 1 kit 01/07/20 25 Active furosemide (LASIX) 40 MG tablet Take 1 tablet (40 mg total) by mouth daily. 30 tablet 01/07/20 25 Active methylPREDNIS olone (MEDROL) 4 MG tabletIndicat ions:MS (multiple sclerosis) ([facility]) Take 1 tablet (4 mg total) by mouth daily. 30 tablet 01/07/20 25 Active acetaminophen (TYLENOL) 325 MG tablet Take 2 tablets (650 mg total) by mouth every 6 (six) hours as needed. Not to exceed 4000 mg of acetaminophen from all sources in 24 hours. 01/07/20 25 Active HYDROcodone-a cetaminophen (NORCO) 5-325 MG tabletIndicat ions:Acute Pain < 7 Day Supply Take 1 tablet by mouth every 6 (six) hours as needed for Pain. Indications: Acute Pain < 7 Day Supply Be careful when combining this medicine with tylenol (acetaminophen) because this medicine already contains acetaminophen. Do not exceed acetaminophen dose of 4000 mg in 24 hours. 28 tablet 01/07/20 25 Active polyethylene glycol (GLYCOLAX) packet Take 240 mLs (17 g total) by mouth daily as needed for Constipation. Dissolve powder in 240 mL water 14 each 01/07/20 25 Active polyvinyl alcohol-povid one (MURINE TEARS) 5-6 MG/ML ophthalmic solution Place 1 drop into both eyes as needed for Dry eyes. 01/07/20 25 Active tamsulosin (FLOMAX) 0.4 MG Cap Take 1 capsule (0.4 mg total) by mouth daily. 30 capsule 01/08/20 Active cefpodoxime (VANTIN) 200 MG tablet Take 2 tablets (400 mg total) by mouth 2 (two) times daily. 56 tablet 01/07/20 Active aspirin 81 MG chewable tablet Chew 1 tablet (81 mg total) by mouth daily. ON HOLD FOR SURGERY Active insulin glargine (LANTUS) 100 UNIT/ML injection (VIAL) Inject 30 Units into the skin nightly at bedtime. PATIENT STATES SHE WAS NOT INSTRUCTED TO PICK THIS UP FROM THE PHARMACY UPON DISCHARGE SO CURRENTLY NOT TAKING ANY DIABETIC MEDS Active Semaglutide (OZEMPIC, 0.25 OR 0.5 MG/DOSE, SC) Inject 0.25 mg into the skin once a week. Just started 01/10/25 Active diclofenac EC (VOLTAREN) 75 MG tablet Take 1 tablet (75 mg total) by mouth 2 (two) times daily. 01/01/20 25 2024 Discontinued(S top Taking at Discharge) LORazepam (ATIVAN) 2 MG tablet Take 0.5 tablets (1 mg total) by mouth 2 (two) times daily as needed for Anxiety. 12/13/19 25 2024 Discontinued(S top Taking at Discharge) midodrine (PROAMATINE) 2.5 MG tablet Take 1 tablet (2.5 mg total) by mouth 3 (three) times daily. 10/24/19 25 2024 Discontinued(S top Taking at Discharge) furosemide (LASIX) 40 MG tablet Take 2 tablets (80 mg total) by mouth daily. 11/09/19 25 2024 Discontinued methylPREDNIS olone (MEDROL) 4 MG tablet Take 1 tablet (4 mg total) by mouth daily. 2024 Discontinued clonazePAM (KLONOPIN) 1 MG tablet Take 1 tablet (1 mg total) by mouth nightly. 01/03/20 25 2024 Discontinued(S top Taking at Discharge) cefpodoxime (VANTIN) 200 MG tablet Take 2 tablets (400 mg total) by mouth 2 (two) times daily. 56 tablet 01/07/20 25 2024 Discontinued insulin glargine (LANTUS) 100 UNIT/ML injection (VIAL) Inject 30 Units into the skin nightly at bedtime. 10 mL 01/07/20 25 2024 Discontinued(E rror) naloxone (NARCAN) 4 MG/0.1ML nasal spray 1 spray by Nasal route as needed for Opioid reversal. may repeat every 2 to 3 minutes in alternating nostrils until medical assistance becomes available 1 each 01/07/20 25 2024 Discontinued(E rror) Active Problems Problem Noted Date Diagnosed Date SEVERO (acute kidney injury) 01/03/2025 Hyperglycemia 01/02/2025 Encounters Date Type Department Care Team Description 01/14/2025 8:00 AM CDT Home Care Visit [facility] [address] [place] [address] [place] [address] Meeta Coronado RN SN NON ADMIT SOC 01/11/2025 2:04 PM CDT - 01/11/2025 11:59 PM [place] [address] Isai Stanton MD Discharge Disposition: Home or Self Care (Routine Discharge) 01/11/2025 2:03 PM [place] [address] Digna Maloney PA-C Discharge Disposition: Home or Self Care (Routine Discharge) 01/11/2025 2:00 PM CDT - 01/11/2025 2:02 PM [place] [address] Mandie Schaefer NP Discharge Disposition: Home or Self Care (Routine Discharge) 01/11/2025 [place] [address] Mandie Schaefer NP 01/11/2025 Travel 01/10/2025 Travel 01/08/2025 Hospital Follow-up Call [facility] [place] [address] Viky Pereira LPN Follow Up Call (NATHALIE 01/02-01/06/25) 01/03/2025 11:53 AM CDT - 01/03/2025 12:57 PM CDT Surgery [facility] [place] [phone] Isai Stanton MD CYSTOSCOPY, RIGHT RETROGRADE PYELOGRAM, RIGHT URETERAL STENT PLACEMENT 01/03/2025 11:46 AM CDT Anesthesia [place] [address] Shamar Mead MD Butler, Debbie Madrid, CITY CONTROLLER 01/02/2025 2:15 PM CDT - 01/06/2025 10:39 AM CDT Hospital Encounter [facility] [address] [place] [address] Roberto Irwin MD Lamonica, Kandace C, MD Doan, Thais Calle, JOSIANE Maloney, Digna Preston PA-C Weakness Discharge Disposition: Home with Home Health Care 01/02/2025 Travel from Last 3 Months Family History Medical History Relation Comments Cancer Father Diabetes Father Heart Disease Father Diabetes Mother Stroke Mother Relation Status Comments Father Mother Social History Tobacco Use Types Packs/Day Years Used Date Smoking Tobacco: Former Cigarettes Q uit: 02/27/2009 Smokeless Tobacco: Never Alcohol Use Standard Drinks/Week Comments No 0 (1 standard drink = 0.6 oz pur e alcohol) [facility] Utilities Answer Date Recorded In the past 12 months has e electric, gas, oil, or water company threatened to shut off services in your home? No 01/02/2025 Humiliation, Afraid, Rape, and Kick questionnair e Answer Date Recorded Within the last year, have y ou been afraid of your partner or ex-partner? No 01/02/2025 Within the last year, have y ou been humiliated or emotionally abused in other ways by your partner or ex-partner? No Within the last year, have y ou been kicked, hit, slapped, or otherwise physically hurt by your partner or ex-partner? No 01/02/2025 Within the last year, have y ou been raped or forced to have any kind of sexual activity by your partner or ex-partner? No 01/02/2025 AUDIT-C Answer Date Recorded Frequency of Alcohol Consumption Never 02/27/2019 Average Number of Drinks Not on file 019 Frequency of Binge Drinking Not on file 02/02 Overall Financial Resource Strain (CARDIA) Answe r Date Recorded How hard is it for you to pa y for the very basics like food, housing, medical care, and heating? Not hard at all 01/02/2025 Hunger Vital Sign Answer Date Recorded Within the past 12 months, y ou worried that your food would run out before you got the money to buy more. Never true 01/03/20 25 Within the past 12 months, t he food you bought just didn't last and you didn't have money to get more. Never true 01/02/2025 PRAPARE - Transportation Answer Date Re corded In the past 12 months, has l ack of transportation kept you from medical appointments or from getting medications? No 08/2024 In the past 12 months, has l ack of transportation kept you from meetings, work, or from getting things needed for daily living? No 01/02/2025 Housing Stability Vital Sign Answer Vicente e Recorded In the last 12 months, was t here a time when you were not able to pay the mortgage or rent on time? No 01/02/2025 In the past 12 months, how m any times have you moved where you were living? 0 01/02/2025 At any time in the past 12 m [facility], were you homeless or living in a correction (including now)? No 01/02/2025 Comments No Sex and Gender Information Value Date Recorded Sex Assigned at Female 01/02/2025 2:26 PM CDT Legal Sex Female 1:10 AM CDT Gender Identity Not on file Sexual Orientation Not on file Last Filed Vital Signs Vital Sign Reading Time Taken Comments Blood Pressure 142/103 01/06/2025 7:07 AM CDT Pulse 88 01/06/2025 7:07 AM CDT Temperature 36.3 C (97.3 F) 01/06/2025 7:05 AM CDT Respiratory Rate 18 01/06/2025 4:00 AM CDT Oxygen Saturation 97% 01/06/2025 7:07 AM CDT Inhaled Oxygen Concentration - - Weight 108.9 kg (240 lb) 01/10/2025 9:12 AM CDT Height 162.6 cm (5' 4) 01/10/2025 9:12 AM CDT Body Mass Index 41.2 01/10/2025 9:12 AM CDT Plan of Treatment Upcoming Encounters Date Type Department Care Team (Late st Contact Info) Description 01/17/2025 Prep for Procedure [facility] [address] Jose Juan Mi MD 3 [facility] [address] [place] [address] 01/17/2025 12:27 PM CDT Hospital Encounter [facility] [place] [address] Isai Stanton MD 3 [facility] [address] [place] [address] 01/17/2025 12:27 PM CDT Anesthesia [place] [address] Nazia Estrada FNP [address] [place] [address] 01/17/2025 12:27 PM CDT - 01/17/2025 1:52 PM CDT Surgery [facility] [place] [address] Isai Stanton MD 3 [facility] [address] [place] [address] CYSTOSCOPY WITH RIGHT URETEROSCOPY, LASER LITHOTRIPSY, AND RIGHT STENT REMOVAL VS EXCHANGE Scheduled Procedures Name Priority Associated Diagnoses Date/Ti me CYSTOSCOPY URETEROSCOPY, STONE EXTRACTION, HOLMIUM LASER, STENT RIGHT URETERAL STONE N20.1 01/17/2025 12:27 PM CDT Health Maintenance Due Date Last Done Comments Colorectal Cancer Screening Colonoscopy (10 Years) 1965 Kidney Health Evaluation 1965 Annual Physical 1968 Diabetes: Retinopathy Eye Exam 1983 Pneumococcal Vaccine: 50+ Ye ars (1 of 2 - PCV) 1984 Mammogram Screening 2005 Zoster Vaccines (1 of 2) 2015 Lipid Panel 08/28/2020 08/28/2019 DTaP, Tdap and Td Vaccines ( 2 - Td or Tdap) 01/22/2024 01/21/2014 COVID-19 Vaccine (1 - 2023-2 5 season) 2024 Hemoglobin A1C 04/05/2025 01/03/2025 Hepatitis C Completed 01/03/2025 Meningococcal B Vaccine Aged Out No l onger eligible based on patient's age to complete this topic Meningococcal Vaccine Aged Out No ashley jayleen eligible based on patient's age to complete this topic RSV Immunizations Under 20 Months Aged Out No longer eligible based on patient's age to complete this topic Goals Goal Patient Goal Type Associated Problems Recent Progress Patient-Stated? 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 Devices Implanted Type Area Golf Course Manager Device Identifier Shelf Expiration Date Model / Serial / Lot Stent Ureteral Pigtail 6fr 24cm Crv Taper Tip - [id number] Implanted:Qty : 1 on 01/03/2025 by sIai Stanton MD at [facility] Stent Right: Ureter [employer] [id number] 05/31/2027 [id number] / / [id number] Procedures Procedure Name Priority Date/Time Associated Diagnosis Comments CBC W/DIFF AUTOMATED Routine 01/11/2025 2:18 PM CDT Ureteral stone Complicated UTI (urinary tract infection) SEVERO (acute kidney injury) COMPREHENSIVE METABOLIC PANEL Routine 01/11/2025 2:18 PM CDT Ureteral stone Complicated UTI (urinary tract infection) SEVERO (acute kidney injury) URINE BACTERIA CULTURE Routine 2:11 PM CDT Calculus of ureter POCT GLUCOSE - DOCKED DEVICE Routine 01/06/2025 6:32 AM CDT CBC W/DIFF AUTOMATED Routine 01/06/2025 4:58 AM CDT BASIC METABOLIC PANEL Routine 01/06/2025 4:58 AM CDT POCT GLUCOSE - DOCKED DEVICE Routine 01/05/2025 7:55 PM CDT POCT GLUCOSE - DOCKED DEVICE Routine 01/05/2025 3:34 PM CDT POCT GLUCOSE - DOCKED DEVICE Routine 01/05/2025 10:50 AM CDT POCT GLUCOSE - DOCKED DEVICE Routine 01/05/2025 6:29 AM CDT FOLIC ACID SERUM Routine 01/05/2025 3:50 AM CDT VITAMIN B-12 Routine 01/05/2025 3:50 AM CDT CBC W/DIFF AUTOMATED Routine 01/05/2025 3:50 AM CDT BASIC METABOLIC PANEL Routine 01/05/2025 3:50 AM CDT POCT GLUCOSE - DOCKED DEVICE Routine 01/04/2025 8:16 PM CDT POCT GLUCOSE - DOCKED DEVICE Routine 01/04/2025 3:08 PM CDT POCT GLUCOSE - DOCKED DEVICE Routine 01/04/2025 11:05 AM CDT POCT GLUCOSE - DOCKED DEVICE Routine 01/04/2025 6:42 AM CDT CBC W/DIFF AUTOMATED Routine 01/04/2025 4:23 AM CDT BASIC METABOLIC PANEL Routine 01/04/2025 4:23 AM CDT PHOSPHORUS, INORGANIC PHOSPHATE Routine 01/04/2025 4:23 AM CDT MAGNESIUM Routine 01/04/2025 4:23 AM CDT EEG ROUTINE Routine 01/03/2025 10:37 PM CDT POCT GLUCOSE - DOCKED DEVICE Routine 01/03/2025 8:23 PM CDT POCT GLUCOSE - DOCKED DEVICE Routine 01/03/2025 8:07 PM CDT POCT GLUCOSE - DOCKED DEVICE Routine 01/03/2025 4:55 PM CDT POCT GLUCOSE - DOCKED DEVICE Routine 01/03/2025 12:25 PM CDT SURG XR RETROGRD UROGRAPHY Routine 01/03/2025 12:12 PM CDT CYSTOSCOPY STENT INSERTION/REMOVAL/MENCHACA GE 01/03/2025 11:46 AM CDT right renal stone POCT GLUCOSE - DOCKED DEVICE Routine 01/03/2025 10:33 AM CDT PHOSPHORUS, INORGANIC PHOSPHATE Routine 01/03/2025 6:41 AM CDT MAGNESIUM Routine 01/03/2025 6:41 AM CDT HEPATITIS PANEL,ACUTE Routine 01/03/2025 6:41 AM CDT HEMOGLOBIN, GLYCOSYLATED Routine 01/03/2025 6:41 AM CDT COMPREHENSIVE METABOLIC PANEL Routine 01/03/2025 6:41 AM CDT CBC W/DIFF AUTOMATED Routine 01/03/2025 6:41 AM CDT POCT GLUCOSE - DOCKED DEVICE Routine 01/03/2025 5:09 AM CDT POCT GLUCOSE - DOCKED DEVICE Routine 01/02/2025 8:36 PM CDT URINE BACTERIA CULTURE STAT 6:48 PM CDT XR CHEST PORTABLE STAT 01/02/2025 6:4 5 PM CDT PHOSPHORUS, INORGANIC PHOSPHATE Routine 01/02/2025 6:21 PM CDT PRO-BRAIN NATRIURETIC PEPTIDE Routine 01/02/2025 6:21 PM CDT POTASSIUM, SERUM STAT 01/02/2025 6:[address] ABD+PEL W CON STAT 01/02/2025 6:11 PM CDT POCT GLUCOSE - DOCKED DEVICE Routine 01/02/2025 5:53 PM CDT POCT GLUCOSE - DOCKED DEVICE Routine 01/02/2025 5:29 PM CDT KEPPRA LEVEL Routine 01/02/2025 5:29 PM CDT DRUG SCREEN RAPID STAT 01/02/2025 4:3 4 PM CDT HC URINALYSIS AUTO W/O MICRO STAT 01/02/2025 4:34 PM CDT ECG 12-LEAD Routine 01/02/2025 3:[address] HEAD WO CON STAT 01/02/2025 3:21 PM CDT MAGNESIUM STAT 01/02/2025 2:47 PM CDT COMPREHENSIVE METABOLIC PANEL STAT 01/02/2025 2:47 PM CDT CBC W/DIFF AUTOMATED STAT 01/02/2025 2:47 PM CDT LIPASE Routine 01/02/2025 2:46 PM CDT AMMONIA Routine 01/02/2025 2:46 PM CDT TSH W/REFLEX Routine 01/02/2025 2:46 PM CDT PROLACTIN Routine 01/02/2025 2:46 PM CDT CK (CPK) Routine 01/02/2025 2:46 PM CDT from Last 3 Months Results * (ABNORMAL) COMPREHENSIVE METABOLIC PANEL (01/11/2025 2:18 PM CDT) Only the most recent of3 resultswithin the time period is included. GLUCOSE 175(H) 70 - 99 MG/DL 01/11/2025 2:57 PM CDT [facility] BUN 16 7 - 18 MG/DL 01/11/2025 2:57 PM CDT [facility] CREATININE S/P/B 1.18(H) 0.55 - 1.02 MG/DL 01/11/2025 2:57 PM CDT [facility] SODIUM S/P/B 138 136 - 145 MMOL/L 01/11/2025 2:57 PM CDT [facility] POTASSIUM S/P/B 3.1(L) 3.5 - 5.1 MMOL/L 01/11/2025 2:57 PM CDT [facility] CHLORIDE S/P/B 104 97 - 115 MMOL/L 01/11/2025 2:57 PM CDT [facility] CO2 27.4 21 - 32 MMOL/L 01/11/2025 2:57 PM CDT [facility] CALCIUM S/P/B 9.1 8.5 - 10.1 MG/DL 01/11/2025 2:57 PM CDT [facility] BILIRUBIN TOTAL S/P/B 0.7 0.2 - 1.2 MG/DL 01/11/2025 2:57 PM CDT [facility] Comment: THIS ASSAY IS NOT RECOMMENDED FOR PATIENTS UNDERGOING TREATMENT WITH ELTROMBOPAG DUE TO THE POTENTIAL FOR FALSELY ELEVATED RESULTS. TOTAL PROTEIN S/P/B 6.8 6.4 - 8.2 G/DL 01/11/2025 2:57 PM CDT [facility] ALBUMIN S/P/B 3.3(L) 3.4 - 5.0 G/DL 01/11/2025 2:57 PM CDT [facility] AST 42(H) 15 - 37 U/L 01/11/2025 2:57 PM T [facility] ALT 61(H) 14 - 55 U/L 01/11/2025 2:57 PM T [facility] ALKALINE PHOSPHATASE S/P/B 225(H) 50 - 136 U/L 01/11/2025 2:57 PM CDT [facility] ANION GAP 6.6 2 - 10 MMOL/L 01/11/2025 2:57 PM CDT [facility] BUN CREATININE RATIO 13.6 6 - 26 01/11/2025 2:57 PM T [facility] A/G RATIO 0.9(L) 1.0 - 2.0 RATIO 01/11/2025 2:57 PM CDT [facility] GFR ESTIMATE 53(L) >90 ML/MIN/1.7 3 M2 01/11/2025 2:57 PM CDT [facility] Comment: NOTE: eGFR is not calculated for patients <18 years of age or gender unknown. This is an estimated GFR calculation using the new CKD EPI creatinine equation without race and so does not require a correction factor for race. This estimated GFR should not be used for calculating drug doses. 01/11/2025 2:18 PM CDT Digna Maloney PA-C LABORATORY Final Resu lt [facility] [address] [place] [address], [place] [phone] * (ABNORMAL) CBC W/DIFF AUTOMATED (01/11/2025 2:18 PM CDT) Only the most recent of6 resultswithin the time period is included. WBC 8.81 4.5 - 11.0 x10'3/uL 01/11/2025 2:30 PM CDT [facility] RBC 4.16(L) 4.20 - 5.40 x10'6/uL 01/11/2025 2:30 PM CDT [facility] HGB 14.3 12.0 - 16.0 G/DL 01/11/2025 2:30 PM CDT [facility] HCT 42.2 38.0 - 48.0 % 01/11/2025 2:30 PM CDT [facility] MCV 101.4(H) 81.0 - 99.0 FL 01/11/2025 2:30 PM CDT [facility] MCH 34.4(H) 27.0 - 31.0 PG 01/11/2025 2:30 PM CDT [facility] MCHC 33.9 32.0 - 36.0 G/DL 01/11/2025 2:30 PM CDT [facility] RDW 16.2(H) 11.5 - 14.5 % 01/11/2025 2:30 PM CDT [facility] PLT 182 130 - 400 x10'3/uL 01/11/2025 2:30 PM CDT [facility] MPV 12.6(H) 9.3 - 12.2 FL 01/11/2025 2:30 PM CDT [facility] DIFFERENTIAL TYPE AUTOMATED DIFFERENTIAL 01/11/2025 2:30 PM CDT [facility] NEUTROPHILS % 63.7 % 01/11/2025 2:30 PM CDT [facility] LYMPHOCYTES % 20.4 % 01/11/2025 2:30 PM CDT [facility] MONOCYTES % 9.3 % 01/11/2025 2:30 PM CDT [facility] EOSINOPHILS 5.0 % 01/11/2025 2:30 PM CDT [facility] BASOPHILS 0.9 % 01/11/2025 2:30 PM CDT [facility] IMMATURE GRANS % 0.7 % 01/12/20 2:30 PM CDT [facility] ABS. NEUTROPHILS 5.61 1.80 - 7.70 x10'3/uL 01/11/2025 2:30 PM CDT [facility] ABS. LYMPHOCYTES 1.80 1.00 - 4.80 x10'3/uL 01/11/2025 2:30 PM CDT [facility] ABS. MONOCYTES 0.82 0.24 - 0.86 x10'3/uL 01/11/2025 2:30 PM CDT [facility] ABS. EOSINOPHILS 0.44(H) 0.04 - 0.36 x10'3/uL 01/11/2025 2:30 PM CDT [facility] ABS. BASOPHILS 0.08 0.01 - 0.08 x10'3/uL 01/11/2025 2:30 PM CDT [facility] ABS. IMMATURE GRANULOCYTES 0.06 0.00 - 0.49 x10'3/uL 01/11/2025 2:30 PM CDT [facility] 01/11/2025 2:18 PM CDT Digna Maloney PA-C LABORATORY Final Resu lt [facility] [address] [place] [address], [place] [phone] * URINE BACTERIA CULTURE (01/11/2025 2:11 PM CDT) Only the most recent of2 resultswithin the time period is included. SPEC DESCRIPTION URINE CLEAN CATCH 01/11/2025 2:11 PM CDT [facility] SPECIAL REQUESTS NO SPECIAL REQUEST 01/11/2025 2:11 PM CDT [facility] CULTURE RESULT NO GROWTH 2 DAYS 01/13/2025 8:17 AM CDT [facility] URINE SPECIMEN OBTAINED BY CLEAN CATCH PROCEDURE / Unknown 01/11/2025 2:11 PM CDT 01/11/2025 2:21 PM CDT Isai Stanton MD MICROBIOLOGY - GENERAL ORDERABL ES Final Result Performing Organization Address City/[facility]/ZIP Co de Phone Number [facility] [address] [place] [address], [place] [phone] * (ABNORMAL) POCT glucose (01/06/2025 6:32 AM CDT) Only the most recent of18 resultswithin the time period is included. GLUCOSE POC 149(H) 70 - 99 mg/dL 01/06/2025 6:41 AM CDT [facility] 01/06/2025 6:32 AM CDT us Digna Maloney PA-C POCT ORDERABLES - DEVICE F inal Result [facility] [address] [place] [address], [place] [phone] * (ABNORMAL) BASIC METABOLIC PANEL (01/06/2025 4:58 AM CDT) Only the most recent of3 resultswithin the time period is included. GLUCOSE 149(H) 70 - 99 MG/DL 01/06/2025 5:44 AM CDT [facility] BUN 17 7 - 18 MG/DL 01/06/2025 5:44 AM CDT [facility] CREATININE S/P/B 0.95 0.55 - 1.02 MG/DL 01/06/2025 5:44 AM CDT [facility] SODIUM S/P/B 142 136 - 145 MMOL/L 01/06/2025 5:44 AM CDT [facility] POTASSIUM S/P/B 3.4(L) 3.5 - 5.1 MMOL/L 01/06/2025 5:44 AM CDT [facility] CHLORIDE S/P/B 109 97 - 115 MMOL/L 01/06/2025 5:44 AM CDT [facility] CO2 28.1 21 - 32 MMOL/L 01/06/2025 5:44 AM CDT [facility] CALCIUM S/P/B 8.9 8.5 - 10.1 MG/DL 01/06/2025 5:44 AM CDT [facility] ANION GAP 4.9 2 - 10 MMOL/L 01/06/2025 5:44 AM CDT [facility] BUN CREATININE RATIO 17.9 6 - 26 01/06/2025 5:44 AM CDT [facility] GFR ESTIMATE 69(L) >90 ML/MIN/1.7 3 M2 01/06/2025 5:44 AM CDT [facility] Comment: NOTE: eGFR is not calculated for patients <18 years of age or gender unknown. This is an estimated GFR calculation using the new CKD EPI creatinine equation without race and so does not require a correction factor for race. This estimated GFR should not be used for calculating drug doses. 01/06/2025 4:58 AM CDT Isai Stanton MD LABORATORY Final Result Performing Organization Address City/[facility]/ZIP Co de Phone Number [facility] [address] [place] [id number], [place] [phone] * VITAMIN B-12 (01/05/2025 3:50 AM CDT) VITAMIN B12 S/P/B 483 254 - 1,320 PG/ML 01/05/2025 2:04 PM CDT [facility] 01/05/2025 3:50 AM CDT Digna Maloney PA-C LABORATORY Final Resu lt [facility] [address] [place] [address], [place] [phone] * FOLIC ACID SERUM (01/05/2025 3:50 AM CDT) FOLATE 16.6 3.1 - 17.5 NG/ML 01/05/2025 2:04 PM CDT [facility] 01/05/2025 3:50 AM CDT Digna Maloney PA-C LABORATORY Final Resu lt Performing Organization Address City/[facility]/ZIP Co de Phone Number [facility] [address] [place] [phone], * (ABNORMAL) PHOSPHORUS, INORGANIC PHOSPHATE (01/04/2025 4:23 AM CDT) Only the most recent of3 resultswithin the time period is included. PHOSPHORUS 2.1(L) 2.5 - 4.9 MG/DL 01/04/2025 5:03 AM CDT [facility] 01/04/2025 4:23 AM CDT Isai Stanton MD LABORATORY Final Result Performing Organization Address City/[facility] Co de Phone Number [facility] [address] [place] [id number], [place] [phone] * MAGNESIUM (01/04/2025 4:23 AM CDT) Only the most recent of3 resultswithin the time period is included. MAGNESIUM 2.2 1.8 - 2.4 MG/DL 01/04/2025 5:03 AM CDT [facility] 01/04/2025 4:23 AM CDT Isai Stanton MD LABORATORY Final Result Performing Organization Address City/[facility]/ZIP Co de Phone Number [facility] [address] [place] [id number] [phone] * EEG (01/03/2025 10:37 PM CDT) Narrative [facility] - 01/03/2025 10:37 PM CDT Jose Benson MD 01/03/2025 10:52 PM Date study performed: 01/03/2025 Procedure: Spot EEG Duration: 20-40min study Indications: The indication of this EEG is for further seizure work up and rule out seizures. Details of Procedure: Conditions of Recording: This is a digital EEG performed using disc electrodes placed according to the International 10-20 system of electrode placement. Scalp to scalp and scalp to ear montages were used. Activation Procedures: Photic Stimulation Results: When maximally aroused, the awake background consists of frequencies that primarily fall within the 7-8 Hz range, indicating mild slowing of the background. The posterior dominant rhythm is not well formed, and is symmetric, characterized by a 7-8 Hz symmetric posterior rhythm averaging 20-40 uV in amplitude and is present bilaterally during the awake period. There was an appropriate admixture of frequencies. The anterior-posterior gradient was present but less well defined due to the mild slowing. Drowsiness was evidenced by attenuation of the posterior dominant rhythm. Sleep architecture was observed with vertex and beta spindling. Amplitudes are within normal range and symmetric throughout. There is no significant asymmetry between the two hemispheres with regards to amplitudes, morphologies, or frequencies. Photic stimulation did not elicit abnormalities. No definite interictal epileptiform discharges or seizures were observed. None of the movements documented by the tech were associated with abnormal EEG. Impression: Abnormal EEG in the awake and asleep state Mild slowing of the background rhythm (7-8 Hz) was noted No epileptiform discharges or seizures were noted during this study Comments: Diffuse slowing of the background rhythm is nonspecific for etiology but indicates mild diffuse neuronal dysfunction. It is commonly seen in but not exclusive of toxic/metabolic disturbances, medication effects, infections, inflammatory and/or other systemic processes, and occasionally diffuse cortical injury. Sleep was observed during the study, with appropriate sleep architecture. If there is clinical suspicion for seizures, continue empiric treatment with a seizure medication. The absence of interictal epileptiform discharges does not exclude the possibility of a prior seizure or of the predisposition to future seizures. Jose Rapp MD Epileptologist Thais JOSHUA NEUROLOGY ORDERABLES Edited Re sult - Final [facility] [address] [place] [address], [place] [phone] * SURG XR RETROGRD UROGRAPHY (01/03/2025 12:12 PM CDT) Anatomical Region Laterality Modality Abdomen Radiographic Malgorzata ging 01/03/2025 12:4 0 PM CDT Impressions 01/03/2025 12:40 PM CDT Impression: No radiologic interpretation will be issued. The report and documentation of this exam will reside in the patient's permanent medical record and in the attending physician's procedure note. Ordered By: ISAI STANTON Interpreted By: Uri Olivera MD, 01/03/2025 12:40 PM Narrative 01/03/2025 12:40 PM CDT [place] [address] FLUOROSCOPY CONTROL ONLY Procedure Note Uri Olivera MD - 01/03/[address] [address] FLUOROSCOPY CONTROL ONLY Impression: No radiologic interpretation will be issued. The report and documentationof this exam will reside in the patient's permanent medical record and inthe attending physician's procedure note. Ordered By: ISAI STANTON Interpreted By: Uri Olivera MD, 01/03/2025 12:40 PM us Isai Stanton MD IMAGES ONLY Final Result * (ABNORMAL) HEMOGLOBIN, GLYCOSYLATED (01/03/2025 6:41 AM CDT) HGB A1C 10.4(H) <5.7 % 01/03/2025 10:10 AM CDT [facility] Comment: ADA GUIDELINES 2010 5.7 TO 6.4% INCREASED RISK OF DIABETES > OR = 6.5% CONSISTENT WITH DIABETES ESTIMATED AVG GLUCOSE 252 mg/dL 01/03/2025 10:10 AM CDT [facility] 01/03/2025 6:41 AM CDT Ruth Salgado PARK MANAGER LABORATORY Final Resul t [facility] [address] [place] [address], [place] [phone] * HEPATITIS PANEL,ACUTE (01/03/2025 6:41 AM CDT) HEPATITIS B SURFACE AG NON-REACTI VE NON-REACTI VE 01/03/2025 9:58 AM CDT [facility] HEP B CORE IGM NON-REACTI VE NON-REACTI VE 01/03/2025 9:58 AM CDT [facility] HAV IGM NON-REACTI VE NON-REACTI VE 01/03/2025 9:58 AM CDT [facility] HEPATITIS C AB NON-REACTI VE NON-REACTI VE 01/03/2025 9:58 AM CDT [facility] 01/03/2025 6:41 AM CDT us Ruth Salgado APRN LABORATORY Final Resul t [facility] [address] [place] [address], [place] [phone] * XR CHEST PORTABLE (01/02/2025 6:45 PM CDT) Anatomical Region Laterality Modality Chest Radiographic Malgorzata ging 01/02/2025 7:32 PM CDT Impressions 01/02/2025 7:34 PM CDT IMPRESSION: Minimal left basilar opacity likely reflecting minimal left basilar atelectasis. Referred By: Interpreted By: Patric Oscar DO, 01/02/2025 7:32 PM Narrative 01/02/2025 7:34 PM [address]T [address] [address] Examination: XR CHEST PORTABLE Exam time: 01/02/2025 6:31 PM Clinical history: Dyspnea. Lower extremity swelling. Comparison: Chest radiographs 03/20/2029, 08/04/2016, 05/26/2016, and 09/30/2015. Technique: Upright AP portable radiograph of the chest Findings: The cardiomediastinal silhouette is normal in size. Pulmonary vasculature is appropriately distributed. There is minimal left basilar opacity likely reflecting minimal left basilar atelectasis. There is no focal pulmonary consolidation. There is no sizable pleural effusion or pneumothorax. Procedure Note Patric Oscar DO - 01/02/[address] [id number] Examination: XR CHEST PORTABLE Exam time: 01/02/2025 6:31 PM Clinical history: Dyspnea. Lower extremity swelling. Comparison: Chest radiographs 03/20/2029, 08/04/2016, 05/26/2016, and09/30/2015. Technique: Upright AP portable radiograph of the chest Findings: The cardiomediastinal silhouette is normal in size. Pulmonary vasculatureis appropriately distributed. There is minimal left basilar opacitylikely reflecting minimal left basilar atelectasis. There is no focalpulmonary consolidation. There is no sizable pleural effusion orpneumothorax. IMPRESSION: Minimal left basilar opacity likely reflecting minimal left basilaratelectasis. Referred By: Interpreted By: Patric Oscar DO, 01/02/2025 7:32 PM us Ruth Salgado PARK MANAGER GENERAL IMAGING Final Resul t * PRO-BRAIN NATRIURETIC PEPTIDE (01/02/2025 6:21 PM CDT) PRO-B TYPE NATRIURETIC PEPTIDE 67 <125 PG/ML 01/02/2025 7:17 PM CDT [facility] Comment: CUT POINTS ESTABLISHED BY INTERNATIONAL COLLABORATIVE ON NT PROBNP (ICON) STUDY (2006). AGE INDEPENDENT: <300 PG/ML HAS A 99% NEGATIVE PREDICTIVE VALUE FOR EXCLUDING ACUTE CHF <50 YEARS: >450 PG/ML IS CONSISTENT WITH ACUTE CHF 50-75 YEARS: >900 PG/ML IS CONSISTENT WITH ACUTE CHF >75 YEARS: >1800 PG/ML IS CONSISTENT WITH ACUTE CHF IN PATIENTS WITH RENAL INSUFFICIENCY (GFR <60), >1200 PG/ML YIELDS A DIAGNOSTIC SENSITIVITY AND SPECIFICITY OF 89% AND 72% FOR ACUTE CHF. 01/02/2025 6:21 PM CDT us Ruth Salgado APRN LABORATORY Final Resul t [facility] [address] [place] [address], [place] [phone] * (ABNORMAL) POTASSIUM, SERUM (01/02/2025 6:21 PM CDT) POTASSIUM S/P/B 2.9(LL) 3.5 - 5.1 MMOL/L 01/02/2025 7:17 PM CDT [facility] Comment: Critical Result(s) Called at: 19:16:41 on 01/02/2025 by: Corie Valdez to and read back by:DORA GOODRICH 01/02/2025 6:21 PM CDT us Crystal M Brown PARK MANAGER LABORATORY Final Resul t [facility] [address] [place] [address], [place] [phone] * CT ABD+PEL W CON (01/02/2025 6:11 PM CDT) Anatomical Region Laterality Modality Abdomen Computed Tomogra phy 01/02/2025 7:22 PM CDT Impressions 01/02/2025 7:32 PM CDT IMPRESSION: 1. Approximately 4 mm calculus in the right proximal ureter with associated mild pyelocaliectasis but no significant periureteral or perinephric stranding. This could reflect a partially/intermittently obstructing calculus. 2. Marked diffuse hepatic steatosis. 3. Approximately 7 mm focus of hyperenhancement in the spleen that is technically indeterminate but appears similar to the prior examination and statistically likely reflects a hemangioma versus sclerosing angiomatoid nodular transformation. If clinically warranted, MRI could be obtained to further characterize. 4. Moderately distended urinary bladder with a focus of air in the nondependent portion of the urinary bladder likely reflecting recent instrumentation. 5. Sigmoid diverticulosis without CT evidence to suggest acute diverticulitis and other findings as above. Referred By: Interpreted By: Patric Oscar DO, 01/02/2025 7:22 PM Narrative 01/02/2025 7:[address] [facility] [address] [place], [place] [address] EXAMINATION: CT ABD+PEL W CON EXAM DATE: 01/02/2025 5:52 PM CLINICAL HISTORY: Generalized weakness and confusion. History of multiple sclerosis and lupus. Increased falls over the past month. COMPARISON: CT abdomen and pelvis 02/27/2019 and 08/11/2016. TECHNIQUE: Axial CT of the abdomen and pelvis was performed following intravenous administration of 100cc of Isovue-370. Coronal and sagittal reformatted reviewed. A radiation dose lowering technique was used for this procedure, which may include, but is not limited to, dose reduction technique, automated exposure control, the use of iterative reconstruction, ALARA (As Low As Reasonably Achievable) techniques, and Image Gently techniques FINDINGS: VISUALIZED LOWER THORAX: Patient respiratory motion artifact degrades evaluation of the visualized lung bases. There is dependent atelectasis in the lower lobes. The incompletely visualized heart is not enlarged. HEPATOBILIARY: The liver is normal in size without gross contour abnormality. No discrete hepatic lesion is seen. There is marked diffuse hepatic steatosis. The gallbladder is surgically absent. There is no biliary ductal dilatation. The pancreas is negative. SPLEEN: The spleen is normal in size. An approximately 7 mm focus of hyperenhancement in the spleen that appears similar to the prior examination and is technically indeterminate but statistically likely reflects a hemangioma versus sclerosing angiomatoid nodular transformation. GENITOURINARY: There is no adrenal mass. There is an approximately 4 mm calculus in the right proximal ureter with associated mild pyelocaliectasis but no significant periureteral or perinephric stranding. There is a nonobstructing calculus in the left lower kidney measuring approximately 4 mm. The kidneys demonstrate symmetric parenchymal enhancement. The urinary bladder is moderately distended. A focus of air within the nondependent portion of the urinary bladder likely reflects recent instrumentation. The uterus is surgically absent. There is a focus of hyperattenuation along the vaginal cuff appearing similar to the prior examinations.. AORTA: There are atherosclerotic calcifications of the abdominal aorta without aneurysm formation. The right hepatic artery originates directly from the abdominal aorta, which is a normal anatomic variant. LYMPH NODES: There is no retroperitoneal, pelvic, or mesenteric adenopathy. GASTROINTESTINAL: There is no gastric or small bowel dilatation. The appendix is nondilated. There is sigmoid diverticulosis without CT evidence to suggest acute diverticulitis. No evidence is seen to suggest bowel obstruction. PERITONEUM: There is no free intraperitoneal fluid or air. 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 There are grade 1 retrolistheses of L2 on L3 and L5 on S1. Mild osteoarthritis affects the hips. Procedure Note Patric Oscar DO - 01/02/2025 [place] [id number] EXAMINATION: CT ABD+PEL W CON EXAM DATE: 01/02/2025 5:52 PM CLINICAL HISTORY: Generalized weakness and confusion. History of multiplesclerosis and lupus. Increased falls over the past month. COMPARISON: CT abdomen and pelvis 02/27/2019 and 08/11/2016. TECHNIQUE: Axial CT of the abdomen and pelvis was performed following intravenousadministration of 100cc of Isovue-370. Coronal and sagittal reformattedreviewed. A radiation dose lowering technique was used for this procedure,which may include, but is not limited to, dose reduction technique,automated exposure control, the use of iterative reconstruction, ALARA (AsLow As Reasonably Achievable) techniques, and Image Gently techniques FINDINGS: VISUALIZED LOWER THORAX: Patient respiratory motion artifact degrades evaluation of the visualizedlung bases. There is dependent atelectasis in the lower lobes. Theincompletely visualized heart is not enlarged. HEPATOBILIARY: The liver is normal in size without gross contour abnormality. Nodiscrete hepatic lesion is seen. There is marked diffuse hepaticsteatosis. The gallbladder is surgically absent. There is no biliaryductal dilatation. The pancreas is negative. SPLEEN: The spleen is normal in size. An approximately 7 mm focus ofhyperenhancement in the spleen that appears similar to the priorexamination and is technically indeterminate but statistically likelyreflects a hemangioma versus sclerosing angiomatoid nodulartransformation. GENITOURINARY: There is no adrenal mass. There is an approximately 4 mm calculus in theright proximal ureter with associated mild pyelocaliectasis but nosignificant periureteral or perinephric stranding. There is anonobstructing calculus in the left lower kidney measuring approximately 4mm. The kidneys demonstrate symmetric parenchymal enhancement. Theurinary bladder is moderately distended. A focus of air within thenondependent portion of the urinary bladder likely reflects recentinstrumentation. The uterus is surgically absent. There is a focus ofhyperattenuation along the vaginal cuff appearing similar to the priorexaminations.. AORTA: There are atherosclerotic calcifications of the abdominal aorta withoutaneurysm formation. The right hepatic artery originates directly from theabdominal aorta, which is a normal anatomic variant. LYMPH NODES: There is no retroperitoneal, pelvic, or mesenteric adenopathy. GASTROINTESTINAL: There is no gastric or small bowel dilatation. The appendix is nondilated.There is sigmoid diverticulosis without CT evidence to suggest acutediverticulitis. No evidence is seen to suggest bowel obstruction. PERITONEUM: There is no free intraperitoneal fluid or air. 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 There are grade 1 retrolistheses of L2 on L3and L5 on S1. Mild osteoarthritis affects the hips. IMPRESSION: 1. Approximately 4 mm calculus in the right proximal ureter withassociated mild pyelocaliectasis but no significant periureteral orperinephric stranding. This could reflect a partially/intermittentlyobstructing calculus. 2. Marked diffuse hepatic steatosis. 3. Approximately 7 mm focus of hyperenhancement in the spleen that istechnically indeterminate but appears similar to the prior examination andstatistically likely reflects a hemangioma versus sclerosing angiomatoidnodular transformation. If clinically warranted, MRI could be obtained tofurther characterize. 4. Moderately distended urinary bladder with a focus of air in thenondependent portion of the urinary bladder likely reflecting recentinstrumentation. 5. Sigmoid diverticulosis without CT evidence to suggest acutediverticulitis and other findings as above. Referred By: Interpreted By: Patric Oscar DO, 01/02/2025 7:22 PM Ruth Agee Damian PARK MANAGER CT Final Resul t * (ABNORMAL) KEPPRA LEVEL (01/02/2025 5:29 PM CDT) KEPPRA 102.6(H) 6.0 - 46.0 mcg/mL 01/05/2025 5:22 PM CDT [email or web address] Comment: THIS RESULT HAS BEEN VERIFIED BY REPEAT ANALYSIS. Brivaracetam (Briviact(R), Rikelta(R)) exhibits significant cross-reactivity in the Levetiracetam (Keppra(R), Spritam(R)) immunoassay. If Brivaracetam has been prescribed, order test code 57543 Levetiracetam by LCMSMS. Test Performed by Sylvester Whiting, [employer] [facility], [address] [place], [place] Warren Swanson M.D., Ph.D., Director of Laboratories , [facility] [id number] 01/02/2025 5:29 PM CDT Ruth Salgado PARK MANAGER LABORATORY Final Resul t [email or web address] [place] [id number] [place], [place] , * (ABNORMAL) DRUG SCREEN RAPID (01/02/2025 4:34 PM CDT) Pathologist [facility] AMPHETAMINE (U) NEGATIVE NEGATIVE 5:40 PM CDT [facility] BARBITURATES SCREEN (U) NEGATIVE NEGATIVE 01/02/2025 5:40 PM CDT [facility] BENZODIAZEPINES SCREEN (U) NEGATIVE NEGATIVE 01/02/2025 5:40 PM CDT [facility] CANNABINOIDS SCREEN (U) NEGATIVE NEGATIVE 01/02/2025 5:40 PM CDT [facility] COCAINE METABOLITES (U) NEGATIVE NEGATIVE 01/02/2025 5:40 PM CDT [facility] METHADONE (U) NEGATIVE NEGATIVE 01/02/2025 5:40 PM CDT [facility] OPIATE SCREEN (U) POSITIVE(A) NEGATIVE 2024 5:40 PM CDT [facility] PHENCYCLIDINE PCP (U) NEGATIVE NEGATIVE 01/02/2025 5:40 PM CDT [facility] Comment: NOTE: RESULTS OF THIS DRUG SCREEN SHOULD BE USED FOR MEDICAL PURPOSES ONLY AND NOT FOR LEGAL OR EMPLOYMENT PURPOSES. POSITIVE RESULTS ARE NOT CONFIRMED. MEDICATIONS CONTAINING EPHEDRINE MAY CAUSE FALSE POSITIVE AMPHETAMINE CALL [phone], LAB, TO REQUEST CONFIRMATION TESTING. IF CREATININE IS <40 mg/dL. RECOLLECTION IS SUGGESTED. AMPHETAMINE- 500 NG/ML BARBITURATE- 200 NG/ML BENZODIAZEPINES- 200 NG/ML THC- 50 NG/ML COCAINE- 150 NG/ML METHADONE- 300 NG/ML OPIATE- 300 MG/ML PCP- 25 NG/ML CREATININE (U) 36.2 28 - 217 MG/DL 01/02/2025 5:40 PM CDT [facility] URINE SPECIMEN / Unknown 01/02/2025 4:34 PM CDT Ruth Salgado PARK MANAGER URINE ORDERABLES Final Resu lt [facility] [address] [place] [address], * (ABNORMAL) URINALYSIS (01/02/2025 4:34 PM CDT) SPECIMEN TYPE URINE CLEAN CATCH 01/02/2025 4:33 PM CDT [facility] COLOR (U) LIGHT YELLOW 01/02/2025 5:40 PM CDT [facility] TRANSPARENCY TURBID 01/02/2025 5:40 PM CDT [facility] SPECIFIC GRAVITY (U) 1.011 1.001 - 1.030 01/02/2025 5:40 PM CDT [facility] U PH 6.5 5.0 - 9.0 01/02/2025 5:40 PM CDT [facility] LEUKOCYTES (U) 25(A) NEGATIVE 01/02/2025 5:40 PM CDT [facility] NITRITES 1+(A) NEGATIVE 01/02/2025 5:40 PM CDT [facility] PROTEIN RANDOM (U) NEGATIVE <30 MG/DL 01/02/2025 5:40 PM CDT [facility] GLUCOSE (U) >1000(A) NORMAL MG/DL 01/02/2025 5:40 PM CDT [facility] KETONES MG/DL (U) NEGATIVE NEGATIVE MG/DL 01/02/2025 5:40 PM CDT [facility] UROBILINOGEN NORMAL NORMAL MG/DL 01/02/2025 5:40 PM CDT [facility] BILIRUBIN (U) NEGATIVE NEGATIVE MG/DL 01/02/2025 5:40 PM CDT [facility] BLOOD (U) TRACE(A) NEGATIVE 01/02/2025 5:40 PM CDT [facility] WBC/HPF 7(H) <6 /HPF 01/02/2025 5:40 PM CDT [facility] RBC/HPF 5 <6 /HPF 01/02/2025 5:40 PM CDT [facility] BACTERIA (U) RARE(A) NONE /HPF 01/02/2025 5:40 PM CDT [facility] SQUAMOUS EPITHELIALS RARE /HPF 01/02/2025 5:40 PM CDT [facility] URINE SPECIMEN OBTAINED BY CLEAN CATCH PROCEDURE / Unknown 01/02/2025 4:34 PM CDT us Constanza Helms EMERGENCY WORKER URINE ORDERABLES Final Result [facility] [address] [place] [address], [place] [phone] * ECG 12 lead (01/02/2025 3:39 PM CDT) 01/02/2025 3:39 PM CDT Narrative [facility] - 01/02/2025 4:[address] PM CDT [address] Test Date: 2025-01-02 Pat Name: ALLIE HUSTON Department: 41 Room: Gender: Female Surveillance Observer: [id number] : 1965 Requested By: CONSTANZA HELMS Order Number: [id number] Reading MD: Anibal Holly Measurements Intervals [place] Rate: 64 P: 52 AL: 169 QRS: 14 QRSD: 89 T: 26 QT: 410 QTc: 425 Interpretive Statements SINUS RHYTHM Compared to ECG 03/20/2019 12:09:38 T-wave abnormality no longer present Possible ischemia no longer present Procedure Note Anibal Holly MD - 01/02/[address] Test Date: 2025-01-02 Pat Name: ALLIE HUSTNO Department: 41 Room: Gender: Female Surveillance Observer: [id number] : 1965 Requested By: CONSTANZA HELMS Order Number: [id number] Reading MD: Anibal Holly Measurements Intervals [place] Rate: 64 P: 52 AL: 169 QRS: 14 QRSD: 89 T: 26 QT: 410 QTc: 425 Interpretive Statements SINUS RHYTHM Compared to ECG 03/20/2019 12:09:38 T-wave abnormality no longer present Possible ischemia no longer present us Constanza Helms EMERGENCY WORKER ECG ORDERABLES Final Result [facility] RAD * CT HEAD WO CON (01/02/2025 3:21 PM CDT) Anatomical Region Laterality Modality Head Computed Tomogra phy 01/02/2025 4:04 PM CDT Impressions 01/02/2025 4:12 PM CDT IMPRESSION: Normal noncontrast head CT. Referred By: Interpreted By: David Bray MD, 01/02/2025 4:04 PM Narrative 01/02/2025 4:12 PM [address] [address] EXAM: CT HEAD WO CON DATE: 01/02/2025 COMPARISON: 03/20/2019 INDICATION: Weakness and confusion, MS, several falls. TECHNIQUE: Noncontrast imaging A dose lowering technique was used for this procedure, which may include, but is not limited to, dose reduction technique, automated exposure control, iterative reconstruction, ALARA (As Low As Reasonably Achievable), or Image Gently techniques. FINDINGS: No hemorrhage, mass effect, or ventricular dilation. The mastoid air cells and paranasal sinuses are clear. No acute bone findings. Normal appearance of the orbits. No CT evidence of demyelinating disease. Procedure Note David Bray MD - 01/02/[address] [address] EXAM: CT HEAD WO CON DATE: 01/02/2025 COMPARISON: 03/20/2019 INDICATION: Weakness and confusion, MS, several falls. TECHNIQUE: Noncontrast imaging A dose lowering technique was used for this procedure, which may include,but is not limited to, dose reduction technique, automated exposurecontrol, iterative reconstruction, ALARA (As Low As ReasonablyAchievable), or Image Gently techniques. FINDINGS: No hemorrhage, mass effect, or ventricular dilation. Themastoid air cells and paranasal sinuses are clear. No acute bonefindings. Normal appearance of the orbits. No CT evidence ofdemyelinating disease. IMPRESSION: Normal noncontrast head CT. Referred By: Interpreted By: David Bray MD, 01/02/2025 4:04 PM Constanza Helms EMERGENCY WORKER CT Final Result * TSH W/REFLEX (01/02/2025 2:46 PM CDT) TSH 2.030 0.358 - 3.74 uIU/ML 01/02/2025 5:40 PM CDT [facility] Comment: HIGH DOSES OF BIOTIN MAY INTERFERE WITH THIS TEST RESULT. CORRELATION TO CLINICAL HISTORY AND PRESENTATION RECOMMENDED. FREE T4 NOT INDICATED 01/02/2025 2:46 PM CDT Ruth Salgado PARK MANAGER LABORATORY Final Resul t Performing Organization Address City/[facility]/ZIP Co de Phone Number [facility] [address] [place] [address], [place] [phone] * (ABNORMAL) AMMONIA (01/02/2025 2:46 PM CDT) AMMONIA 40(H) 11 - 32 UMOL/L 01/02/2025 5:40 PM CDT [facility] 01/02/2025 2:46 PM CDT Ruth Salgado PARK MANAGER LABORATORY Final Resul t Performing Organization Address City/[facility]/ZIP Co de Phone Number [facility] [address] [place] [address], [place] [phone] * LIPASE (01/02/2025 2:46 PM CDT) LIPASE 27 13 [phone] 75 UNITS/L 01/02/2025 5:40 PM CDT [facility] 01/02/2025 2:46 PM CDT us Ruth Salgado PARK MANAGER LABORATORY Final Resul t [facility] [address] [place], [place] [address], [place] [address], [place] [phone] * PROLACTIN (01/02/2025 2:46 PM CDT) PROLACTIN 6.1 NG/ML 01/02/2025 6:27 PM CDT [facility] Comment:FEMALE REFERENCE RAN GE (NON-): 4.8-23.3 01/02/2025 2:46 PM CDT Ruth Salgado PARK MANAGER LABORATORY Final Resul t [facility] [address] [place] [address], [place] [phone] * CK (CPK) (01/02/2025 2:46 PM CDT) CPK 131 21 - 215 U/L 01/02/2025 5:40 PM CDT [facility] 01/02/2025 2:46 PM CDT Ruth Salgado APRN LABORATORY Final Resul t [address] [address], [place] [phone] from Last 3 Months Insurance [employer] Advance Directives * Full Code (Latest Code Status on File) Date Activated Date Inactivated Comments 01/02/2025 5:48 PM 01/06/2025 12:55 PM Care Teams Recreation Manager Relationship Specialty Start Date End Date Mandie Schaefer NP [address] [place] [address] PCP - General FAMILY PRACTICE 01/02/25 Tonia Mcrae MD 3 [place] [address] Consulting Physician NEUROLOGY 01/10/25
--- OUTSIDE RECORDS SUMMARY | 2025-01-15 13:20 | XMS_ITS | Encounter Summary ---
Author Organization [facility] Address [address] [facility] [address] [place] [address] Care Team Providers Care Health Record Technician Name Role Phone Warren Cowan MD Primary Care Prov ider Warren Cowan MD Primary Care Prov ider Encounter Details Date Type Department Care Team (Late st Contact Info) Description 09/12/2016 Orders Only [facility] ProviderRavi MD [address] [place] [address] Social History Tobacco Use Types Packs/Day Years Used Date Smoking Tobacco: Former Alcohol Use Standard Drinks/Week Comments No 0 (1 standard drink = 0.6 oz pur e alcohol) Comments Unknown Sex and Gender Information Value Date Recorded Sex Assigned at Not on file 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
--- OUTSIDE RECORDS SUMMARY | 2025-01-15 13:20 | XMS_ITS | Encounter Summary ---
Author Organization [facility] Address [facility] [place] [address] Care Team Providers Care Assistant Sales Center Manager Name Role Phone Warren Cowan MD Primary Care Provider + [phone] Mandie Schaefer NP Primary Care Provider [phone] Tonia Mcrae MD Unavailable [phone] Encounter Details Date Type Department Care Team (Late st Contact Info) Description 12/09/2018 Abstract SFL CONVERSION [address] [place] [address] , Generic Conversion, Social History Tobacco Use [...] Contact Info) Description 01/17/2025 Prep for Procedure [facility] [place] [address] Jose Juan Mi MD 3 [facility] Suite [facility] [place] [address] 01/17/2025 12:27 PM CDT Hospital Encounter [facility] [place] [address] Isai Stanton MD 3 [facility] [address] [place] [address] 01/17/2025 12:27 PM CDT Anesthesia Event [facility] [place] [address] Nazia Estrada, OFFSHORE WIND OPERATIONS MANAGER 1 [place] [address] 01/17/2025 12:27 PM CDT - 01/17/2025 1:52 PM CDT Surgery [facility] [place] [address] Isai Stanton MD [address] [address] CYSTOSCOPY WITH RIGHT URETEROSCOPY, LASER LITHOTRIPSY, AND RIGHT STENT REMOVAL VS EXCHANGE Scheduled Procedures Name Priority Associated Diagnoses Date/Ti me CYSTOSCOPY URETEROSCOPY, STONE EXTRACTION, HOLMIUM LASER, STENT RIGHT URETERAL STONE N20.1 01/17/2025 12:27 PM CDT documented as of this encounter Visit Diagnoses Not on filedocumented in this encounter Care Teams Assistant Sales Center Manager Relationship Specialty Start Date End Date Warren Cowan MD [address] [address] PCP - General FAMILY PRACTICE 02/27/19 01/01/25 Mandie Schaefer NP [address] [place] [address] PCP - General FAMILY PRACTICE 01/02/25 Tonia Mcrae MD 3 [place] [address] Consulting Physician NEUROLOGY 01/10/25 documented as of this encounter
--- OUTSIDE RECORDS SUMMARY | 2025-01-15 13:20 | XMS_ITS | Encounter Summary ---
Author Organization [facility] Address [address] [facility] [address] [place] [address] Care Team Providers Care Financial Agent Name Role Phone Warren Cowan MD Primary Care Prov ider Warren Cowan MD Primary Care Prov ider Encounter Details Date Type Department Care Team (Late st Contact Info) Description 06/17/2016 Orders Only [facility] ProviderRavi MD [address] [place] [address] Social History Tobacco Use Types Packs/Day Years Used Date Smoking Tobacco: Former Alcohol Use Standard Drinks/Week Comments No 0 (1 standard drink = 0.6 oz pur e alcohol) Comments Unknown Sex and Gender Information Value Date Recorded Sex Assigned at Not on file Legal Sex Female 3:44 AM STRIP DEBURRER Gender Identity Not on file Sexual Orientation [...] on filedocumented in this encounter Care Teams Financial Agent Relationship Specialty Start Date End Date Warren Cowan MD [address] [place] [address] PCP - General 10/01/16 Warren Cowan MD [address] [place] [address] PCP - General 06/26/15 09/30/16 documented as of this encounter
--- OUTSIDE RECORDS SUMMARY | 2025-01-15 13:20 | XMS_ITS | Encounter Summary ---
Author Organization [facility] Address [facility] [place] [address] Care Team Providers Care Application Engineer Name Role Phone Mandie Schaefer PARAFFIN MACHINE OPERATOR Primary Care Provider Tonia Mcrae MD Unavailable [phone] Encounter Details Date Type Department Care Team (Late st Contact Info) Description 01/11/2025 Orders Only [facility] [place], [place] [id number] Mandie Schaefer, PARAFFIN MACHINE OPERATOR [address] [place] [address] Social History Tobacco Use Types Packs/Day Years Used Date Smoking Tobacco: Former Cigarettes Q uit: 02/27/2009 Smokeless Tobacco: Never Alcohol Use Standard Drinks/Week Comments No 0 (1 standard drink = 0.6 oz pur e alcohol) [facility] Utilities Answer Date Recorded In the past 12 months has [facility] [employer], gas, oil, or water [employer] threatened to shut off services in your [...] any time in the past 12 m [facility], were you homeless or living in a senior living (including now)? No 01/02/2025 Comments No Sex and Gender Information Value Date Recorded Sex Assigned at Female 01/02/2025 2:26 PM CDT Legal Sex Female 1:10 AM CDT Gender Identity Not on file Sexual Orientation Not on file documented as of this encounter Functional Status * Are you deaf or do you have serious difficulty hearing Answer Date of Assessment Author Status No 01/02/2025 8:49 PM CDT Eduarda Hilton RN Active * Are you blind or do you have serious difficulty seeing, even when wearing glasses? Answer Date of Assessment Author Status Yes 01/02/2025 8:49 PM CDT Eduarda Hilton, ANAND Active * Do you have serious difficulty walking or climbing stairs? Answer Date of Assessment Author Status Yes 01/02/2025 8:49 PM CDT Eduarda Hilton , RN Active * Do you have difficulty dressing or bathing? Answer Date of Assessment Author Status Yes 01/02/2025 8:49 PM CDT Eduarda Hilton RN Active * Because of a physical, mental, or emotional condition, do you have difficulty doing errands alone such as visiting a doctor's office or shopping? Answer Date of Assessment Author Status Yes 01/02/2025 8:49 PM CDT Eduarda Hilton RN Active documented as of this encounter Mental Status * Because of a physical, mental, or emotional condition, do you have serious difficulty concentrating, remembering, or making decisions? Answer Entry Date Author Status Yes 01/02/2025 8:49 PM CDT Eduarda Hilton, ANAND Active documented in this encounter Plan of Treatment Upcoming Encounters Date Type Department Care Team (Late st Contact Info) Description 01/17/2025 Prep for Procedure [facility] [place] [address] Jose Juan Mi MD 3 [facility] [address] [place] [address] 01/17/2025 12:27 PM CDT Hospital Encounter [facility] [place] [address] Isai Stanton MD 3 [facility] [address] [place] [address] 01/17/2025 12:27 PM CDT Anesthesia [place] [address] Nazia Estrada FNP 1 [place] [address] 01/17/2025 12:27 PM CDT - 01/17/2025 1:52 PM CDT Surgery [facility] [place] [address] Isai Stanton MD 3 [facility] [address] [place] [address] CYSTOSCOPY WITH RIGHT URETEROSCOPY, LASER LITHOTRIPSY, AND RIGHT STENT REMOVAL VS EXCHANGE Scheduled Procedures Name Priority Associated Diagnoses Date/Ti tx CYSTOSCOPY URETEROSCOPY, STONE EXTRACTION, HOLMIUM LASER, STENT RIGHT URETERAL STONE N20.1 01/17/2025 12:27 PM CDT documented as of this encounter Goals Goal Patient Goal Type Associated Problems Recent Progress Patient-Stated? 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, FIRE EATER documented as of this encounter Visit Diagnoses Diagnosis Right ureteral stone- Primary Calculus of ureter Type 2 diabetes mellitus without complications (CMS/HCC HHS/HCC)- Primary Type II or unspecified type diabetes mellitus without mention of complication, not stated as uncontrolled Sjogren's syndrome (HHS/HCC) Sicca syndrome Calculus of ureter- Primary documented in this encounter Care Teams Application Engineer Relationship Specialty Start Date End Date Mandie Schaefer NP [address] [place] [address] PCP - General FAMILY PRACTICE 01/02/25 Tonia Mcrae MD 3 [place] [address] Consulting Physician NEUROLOGY 01/10/25 documented as of this encounter
--- OUTSIDE RECORDS SUMMARY | 2025-01-15 13:20 | XMS_ITS | Encounter Summary ---
Author Organization [facility] Address [address] [facility] [address] [place] [address] Care Team Providers Care Instructional Design Technologist Name Role Phone Warren Cowan MD Primary Care Prov ider Warren Cowan MD Primary Care Prov ider Encounter Details Date Type Department Care Team (Late st Contact Info) Description 07/29/2016 Orders Only [facility] ProviderRavi MD [address] [place] [address] Social History Tobacco Use Types Packs/Day Years Used Date Smoking Tobacco: Former Alcohol Use Standard Drinks/Week Comments No 0 (1 standard drink = 0.6 oz pur e alcohol) Comments Unknown Sex and Gender Information Value Date Recorded Sex Assigned at Not on file Legal Sex Female 3:44 AM RIB STIFFENER AND HEEL DIPPER Gender Identity Not on file Sexual Orientation [...] on filedocumented in this encounter Care Teams Instructional Design Technologist Relationship Specialty Start Date End Date Warren Cowan MD [address] [place] [address] PCP - General 10/01/16 Warren Cowan MD [address] [place] [address] PCP - General 06/26/15 09/30/16 documented as of this encounter
--- OUTSIDE RECORDS SUMMARY | 2025-01-15 13:20 | XMS_ITS | Clinical Summary ---
Author Organization [facility] Address [address] [place] [address] Care Team Providers Care Fry Cook Name Role Phone Warren Cowan MD Primary Care Provider + Source Comments [facility],non-owned Affiliates and Associated Physician Practices is amultiple site organization consisting of ambulatory clinics and hospital sitesin [place], [place], [place] and [place]. This disclosure is being madepursuant to the Care Everywhere program and may not contain all information available regarding this patient. Last updated 18.[facility] Allergies No known active allergies Medications * [...] 10:35 AM CDT Height 165.1 cm (5' 5) 03/30/2016 10:35 AM CDT Body Mass Index [...] MAMMOGRAM 1965 MEDICARE AWV 12 MONTHS 1965 HIV SCREENING 1980 HEPATITIS C SCREENING 07/05/1983 DTAP/TDAP/TD VACCINES (1 - Tdap) 1984 HEPATITIS B VACCINE (1 of 3 - 19+ 3-dose series) 1984 PAP SMEAR 1986 PNEUMOCOCCAL VACCINE 50+ (1 of 1 - PCV) 2015 ZOSTER VACCINE (1 of 2) 2015 COVID-19 VACCINE (1 - 2023-2 5 season) 2024 DEPRESSION SCREENING 07/04/2024 INFLUENZA VACCINE (#1) 2025 HIB VACCINE Aged Out No longer [...] to complete this topic Insurance [employer] MEDICARE [facility] MEDICARE SELF PAY NO INSURANCE Member Subscriber Plan / Payer (Ef fective for All Dates) Name:Abiodun Buchanan Member ID:Not on file Relation to Subscriber:Not on file Name:ABIODUN BUCHANAN Subscriber ID:Not on file (Home) Address: [address] [place] [id number] Payer ID:Not on file Group ID:Not on file Type:Self Pay Address: [place], [place] Advance Directives * Full Code (Latest Code Status on File) Date Activated Date Inactivated Comments 02/23/2016 11:33 AM 02/23/2016 7:30 PM Care Teams Fry Cook Relationship Specialty Start Date End Date Warren Cowan MD [address] [place] [address] PCP - General Family Medicine 02/20/16
--- OUTSIDE RECORDS SUMMARY | 2025-01-15 13:20 | XMS_ITS | Encounter Summary ---
Author Organization [facility] Address [address] [facility] [address] [place] [address] Care Team Providers Care Department Specialist Name Role Phone Warren Cowan MD Primary Care Prov ider Encounter Details Date Type Department Care Team (Late st Contact Info) Description 10/24/2016 Orders Only [facility] ProviderRavi MD [address] [place] [address] Social History Tobacco Use Types Packs/Day Years Used Date Smoking Tobacco: Former Alcohol Use Standard Drinks/Week Comments No 0 (1 standard drink = 0.6 oz pur e alcohol) Comments Unknown Sex and Gender Information Value Date Recorded Sex Assigned at Not on file Legal Sex Female 3:44 AM VICE PRESIDENT GLOBAL DIGITAL MARKETING Gender Identity Not on file Sexual Orientation Not on file documented as of this encounter Plan of Treatment Not on file documented as of this encounter Procedures Procedure Name Priority Date/Time Associated Diagnosis Comments CARDIOLOGY REPORT 10/24/2016 documented in this encounter Results * CARDIOLOGY REPORT (10/24/2016) Anatomical Region Laterality Modality Other Narrative 10/24/2016 Ordered by an unspecified provider. Historical Provider [facility] F[facility]DEZ Final Result documented in this encounter Visit Diagnoses Not on filedocumented in this encounter Care Teams Department Specialist Relationship Specialty Start Date End Date Warren Cowan MD [address] [place] [address] PCP - General 10/01/16 documented as of this encounter
--- OUTSIDE RECORDS SUMMARY | 2025-01-15 13:20 | XMS_ITS | Clinical Summary ---
Author Organization [facility] Sum[facility] Weller Address [address] [place] [address] Care Team Providers Care Milk Inspector Name Role Phone Warren Cowan MD Primary Care Provider [phone] Allergies No known active allergies Medications levETIRAcetam [...] mouth. Activ e naloxone (NARCAN) 4 mg/spray Filion, Non-Aerosol EMERGENCY USE ONLY: Administer 1 spray [...] Encounters Date Type Department Care Team Description 12/25/2024 External Device Data [facility] ABSTRACTION Provider, Abstract 11/27/2024 External Device Data [facility] ABSTRACTION Provider, Abstract 11/21/2024 External Device Data [facility] ABSTRACTION Provider, Abstract 11/20/2024 External Device Data [facility] ABSTRACTION Provider, Abstract [...] Comments Blood Pressure 102/64 06/18/2024 10:55 AM REFERRAL NURSE Pulse 55 06/18/2024 10:55 AM REFERRAL NURSE Temperature 36.5 C (97.7 F) 06/18/2024 10:55 AM REFERRAL NURSE Respiratory Rate 15 06/18/2024 10:5 5 AM REFERRAL NURSE Oxygen Saturation 97% 06/18/2024 10: 55 AM REFERRAL NURSE Inhaled Oxygen Concentration - - Weight 100.3 kg (221 lb 3.2 oz) 024 10:55 AM REFERRAL NURSE Height 157.5 cm (5' 2) 11/03/2021 3:41 PM CDT Body Mass Index 40.46 11/03/2021 3:41 PM CDT Plan of Treatment Upcoming Encounters Date Type Department Care Team (Late st Contact Info) Description 06/18/2025 10:00 AM REFERRAL NURSE Office Visit [facility] Oncology and Hematology - [place] [address] [facility] [address] [place] [address] Aki Guido MD [address] [facility] [address] [place] [address] Health Maintenance Due Date Last [...] (1 of 2) 2015 INFLUENZA VACCINE (#1) 2025 Insurance [facility] MCR Care Teams Milk Inspector Relationship Specialty Start Date End Date Warren Cowan MD PCP - General Family Practice 11/01/19
--- OUTSIDE RECORDS SUMMARY | 2025-01-15 13:20 | XMS_ITS | Clinical Summary ---
Author Organization [facility] [address] Address [address] [place] [address] Care Team Providers Care Executive Kitchen Manager Name Role Phone Warren Cowan MD [...] implantable loop record er 08/04/2015 Overview (02/18/2017): H-art (WPP)tronic reveal implantable loop recorder Dx; Syncope. DOI [...] Date Comments Lupus erythematosus Lupus; Comme nts: [facility] 03/04/2015 - Multiple sclerosis (HCC) MS; Com ments: [facility] 03/04/2015 - Family History Medical History Relation [...] on file Legal Sex Female 3:44 AM HAT BODY SORTER Gender Identity Not on file Sexual Orientation Not on file Obstetrics History Last Filed Vital Signs Vital Sign Reading Time Taken Comments Blood Pressure 126/76 08/28/2019 2:17 PM HAT BODY SORTER Pulse 64 08/28/2019 2:17 PM HAT BODY SORTER Temperature - - Respiratory Rate 16 03/09/2017 2:37 PM CDT Oxygen Saturation 96% 08/28/2019 2:17 PM HAT BODY SORTER Inhaled Oxygen Concentration - - Weight 96.6 kg (213 lb) 08/28/2019 2:17 PM HAT BODY SORTER Height 165.1 cm (5' 5) 08/28/2019 2:17 PM HAT BODY SORTER Body Mass Index 35.45 08/28/2019 2:17 PM HAT BODY SORTER Plan of Treatment Not on file Medical Devices Implanted Type Area Turntable Engineer Device Identifier Shelf Expiration Date Model / Serial / Lot Implantable Loop Recorder Implantable Loop Recorder Chest [employer] Insurance Care Teams Executive Kitchen Manager Relationship Specialty Start Date End Date Warren Cowan MD [address] [place] [address] PCP - General 10/01/16
--- OUTSIDE RECORDS SUMMARY | 2025-01-15 13:20 | XMS_ITS | Encounter Summary ---
Author Organization [facility] Address [address] [place] [address] Care Team Providers Care Adjustment Clerk Name Role Phone Mandie Schaefer STORAGE CONSULTANT Primary Care Provider + [phone] Tonia Mcrae MD Unavailable [phone] Encounter Details Date Type Department Care Team (Late st Contact Info) Description 01/14/2025 8:00 AM CDT Home Care Visit [facility] [address] [place] [address] [place] [address] Meeta Coronado, RN SN NON ADMIT SOC Social History Tobacco Use Types Packs/Day Years Used Date Smoking Tobacco: Former Cigarettes Q uit: 02/27/2009 Smokeless Tobacco: Never Alcohol Use Standard Drinks/Week Comments No 0 (1 standard drink = 0.6 oz pur e alcohol) [facility] Utilities Answer Date Recorded In the past 12 months has [facility] [employer] gas, oil, or water [employer] threatened to shut off services in your [...] any time in the past 12 m [facility], were you homeless or living in a usp (including now)? No 01/02/2025 Comments No Sex [...] PM CDT Eduarda Hilton RN Active * Do you have serious difficulty walking or climbing stairs? Answer Date of Assessment Author Status Yes 01/02/2025 8:49 PM CDT Eduarda Hilton RN Active * Do you have difficulty dressing or bathing? Answer Date of Assessment Author Status Yes 01/02/2025 8:49 PM CDT Eduarda Hilton, RN Active * Because of a physical, [...] PM CDT Eduarda Hilton RN Active documented in this encounter Plan of Treatment Upcoming Encounters Date Type Department Care Team (Late st Contact Info) Description 01/17/2025 Prep for Procedure [facility] [place] [address] Jose Juan Mi MD 3 [facility] [address] [place] [address] 01/17/2025 12:27 PM CDT Hospital Encounter [facility] [address] Isai Stanton MD 3 [facility] [address] [place] [address] 01/17/2025 12:27 PM CDT Anesthesia [place] [address] Nazia Estrada FNP 1 [place] [address] 01/17/2025 12:27 PM CDT - 01/17/2025 1:52 PM CDT Surgery [facility] [place] [address] Isai Stanton MD 3 [facility] [address] [place] [address] CYSTOSCOPY WITH RIGHT URETEROSCOPY, LASER LITHOTRIPSY, AND RIGHT STENT REMOVAL VS EXCHANGE Scheduled Procedures Name Priority Associated Diagnoses Date/Ti nv CYSTOSCOPY URETEROSCOPY, STONE EXTRACTION, HOLMIUM LASER, STENT RIGHT URETERAL STONE N20.1 01/17/2025 12:27 PM CDT documented as of this encounter Goals Goal Patient Goal Type Associated Problems Recent Progress Patient-Stated? 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, HVAC PROJECT ENGINEER documented as of this encounter Visit Diagnoses Not on filedocumented in this encounter Care Teams Adjustment Clerk Relationship Specialty Start Date End Date Mandie Schaefer NP [address] [place] [address] PCP - General FAMILY PRACTICE 01/02/25 Tonia Mcrae MD 3 [place] [address] Consulting Physician NEUROLOGY 01/10/25 documented as of this encounter
--- OUTSIDE RECORDS SUMMARY | 2025-01-15 13:20 | XMS_ITS | Referral Summary ---
Author Organization [facility] [address] Address [address] [place] [address] Care Team Providers Care Hadoop Admin Name Role Phone Warren Cowan MD Primary [...] implantable loop record er 08/04/2015 Overview (02/18/2017): [employer] reveal implantable loop recorder Dx; Syncope. DOI [...] on file Legal Sex Female 3:44 AM RISK ENGINEER Gender Identity Not on file Sexual Orientation Not on file Last Filed Vital Signs Vital Sign Reading Time Taken Comments Blood Pressure 126/76 08/28/2019 2:17 PM RISK ENGINEER Pulse 64 08/28/2019 2:17 PM RISK ENGINEER Temperature - - Respiratory Rate 16 03/09/2017 2:37 PM CDT Oxygen Saturation 96% 08/28/2019 2:17 PM RISK ENGINEER Inhaled Oxygen Concentration - - Weight 96.6 kg (213 lb) 08/28/2019 2:17 PM RISK ENGINEER Height 165.1 cm (5' 5) 08/28/2019 2:17 PM RISK ENGINEER Body Mass Index 35.45 08/28/2019 2:17 PM RISK ENGINEER Plan of Treatment Not on file Medical Devices Implanted Type Area Keno Terminal Operator Device Identifier Shelf Expiration Date Model / Serial / Lot Implantable Loop Recorder Implantable Loop Recorder Chest [employer] Insurance Care Teams Hadoop Admin Relationship Specialty Start Date End Date Warren Cowan MD [address] [place] [address] PCP - General 10/01/16
--- NOTE | 2025-01-15 15:00 | NEURO_ITS ---
Impression: # Non-diabetic complains of Left 4tth and 5th finger numbness ? # Left Ulnar Neuropathy across the elbow ? # No Carpal Tunnel Syndrome ? # Needle/ EMG exam not ordered Nerve Conduction Studies ?Stim Site NR Peak (ms) P-T Amp (?V) Site1 Site2 Delta-P (ms) Dist (cm) Fidencio (m/s) Left Median Anti Sensory (2-3nd Digit) Wrist ? 3.3 49.1 Wrist 2-3nd Digit 3.3 14.0 42 Wrist ? 3.3 52.9 Wrist 2-3nd Digit 3.3 14.0 42 Left Radial Anti Sensory (Base 1st Digit) Wrist ? 2.2 22.0 Wrist Base 1st Digit 2.2 0.0 Left Ulnar Anti Sensory (5th Digit) Wrist ? 2.7 85.1 Wrist 5th Digit 2.7 14.0 52 ?Stim Site NR Onset (ms) O-P Amp (mV) Site1 Site2 Delta-0 (ms) Dist (cm) Fidencio (m/s) Left Median Motor (Abd Poll Brev) Wrist ? 3.4 3.4 Elbow Wrist 5.2 28.0 54 Elbow ? 8.6 3.3 Left Ulnar Motor (Abd Dig Minimi) Wrist ? 3.0 5.2 A Elbow Wrist 6.8 27.0 40 A Elbow ? 9.8 4.0 B Elbow Wrist 4.9 22.0 45 B Elbow ? 7.9 4.9
== END 2025-01-15 13:15 | disposition home or self-care (01) ==
PROVIDERS: PCP Nurse Practitioner Family; Visit Provider Family Medicine Adolescent Medicine
DX: G56.22 Lesion of ulnar nerve, left upper limb (principal)
CPT/HCPCS: 95886; 95909

== ENCOUNTER 2025-01-19 05:55 | Inpatient (IN) | payer OTHER, SELFPAY ==
[2025-01-19] VITALS (54 sets, daily range): BP systolic 71–129; BP diastolic 34–92; PULSE 72–120; RESP 14–29; TEMP 37–39.4; O2SAT 92–100
--- NOTE | ~2025-01-19 | XR_ITS ---
EXAMINATION: XR retrograde pyelo w/stent RT DATE: 01/19/2025 12:11 INDICATION: Right internal ureteral stent placement TECHNIQUE: Fluoroscopic images from a right internal ureteral stent placement are submitted for rodrigo pedroza. 15 seconds of fluoroscopy time. FINDINGS: There is a right double-J internal ureteral stent projecting in expected position, with proximal [place] loop at the level of the renal pelvis and distal loop in the pelvis within the bladder lumen. IMPRESSION: 1. Right internal ureteral stent placement. Please refer to real-time procedural findings for detai ls. Reviewed, dictated and finalized at location [facility]. IMPRESSION: 1. Right internal ureteral stent placement. Please refer to real-time procedu ral findings for details.
--- NOTE | ~2025-01-19 | CT_ITS ---
EXAMINATION: CT brain wo con DATE: 01/19/2025 08:58 INDICATION: Fall TECHNIQUE: Computed tomography (CT) of the head was performed without intravenous contrast. The mA wa s adjusted according to patient size. Iterative reconstruction technique was employed. Exam dose: 60 5.33 mGy-cm total exam DLP. COMPARISON: 11/20/2024 CT brain FINDINGS: No intracranial mass lesion or hemorrhage, midline shift or mass effect or cerebrovascular accident is evident. Bilateral vertebral, basilar, bilateral cavernous internal carotid artery calcifications. There is no nspecific diminished attenuation the cerebral white matter, likely due to chronic small vessel ischem ic change. No fracture or bone destruction of the cranial vault. Paranasal sinuses and mastoid air cells are unremarkable. IMPRESSION: Cerebral atherosclerosis and chronic small vessel ischemic changes of the cerebral white matter No skull fracture or acute intracranial finding Reviewed, dictated and finalized at [facility]. Reviewed, dictated and finalized at location [facility].
--- NOTE | ~2025-01-19 | CT_ITS ---
EXAMINATION: CT abdomen pelvis w con DATE: 01/19/2025 08:58 INDICATION: Sepsis. Renal stone extraction. TECHNIQUE: Computed tomography (CT) of the head was performed without intravenous contrast. The dose- length product was 1636.16 mGy-cm. Automated exposure control and iterative reconstruction technique were employed. COMPARISON: CT dated 11/20/2024 FINDINGS: There is dependent atelectasis. Heart size normal. Fatty infiltration of the liver. Status post cholecystectomy. There is urothelial enhancement of the right ureter, suspicious for ascending u rinary tract infection. Mild right hydronephrosis. No obstructing right ureteral stone is seen. Small amount of gas in the bladder, likely iatrogenic. No acute osseous abnormality. No significant vascul ar abnormality. No lymphadenopathy. No abnormal pelvic masses or fluid collections. Nonobstructive mercedes wel gas pattern. IMPRESSION: 1. Mild right hydronephrosis with urothelial enhancement, suspicious for ascending urinary tract infe ction. Reviewed, dictated and finalized at location [facility]. IMPRESSION: 1. Mild right hydronephrosis with urothelial enhancement, suspicious for ascend ing urinary tract infection.
--- NOTE | 2025-01-19 06:00 | ECG_ITS ---
Test Date: 2025-01-19 05:57:23 Measurements Intervals [place] Rate: 120 P: 48 ND: 132 QRS: 22 QRSD: 84 T: 26 QT: 421 QTc: 596 Interpretive Statements SINUS TACH[address] ST DEVIATION AND MODERATE T-WAVE ABNORMALITY, CONSIDER LATERAL ISCHEMIA [-0.1+ mV T-WAVE IN I/aVL/V5/V6] ABNORMAL ECG Compared to ECG 01/29/2024 14:02:08 HEART RATE IS INCREASED Electronically Signed On 01-19-2025 08:55:54 CDT by Jermaine Bolton M.D.
--- NOTE | 2025-01-19 06:07 | ED_ITS ---
HPI - Fever General Chief Complaint: Fever <Alfredo Adams MD - Last Filed: 01/20/25 04:19> Stated Complaint: fever <Alfredo Adams MD - Last Filed: 01/20/25 04:19> History of Present Illness HPI Narrative: 59-year-old female with a past medical history including seizure disorder, multiple sclerosis, type 2 diabetes, kidney stone history. She was hospitalized at [facility] from January 02 through January 07 for acute encephalopathy and had a kidney stone at that time. She had a ureteral stent placed with urologist Dr. Stanton. Patient was discharged with outpatient Neurology and Urology follow-up. She had a procedure done on the just 2 days ago where she had a cystoscopy with extraction of ureteral stone and removal of the previously mentioned stent. Patient went home after the procedure and EMS was called to scene this morning were patient was feeling unwell, fevers, having reportedly low blood pressures, tachycardic and altered mentation. She was transported BLS and brought to room 12 for evaluation. On arrival she is tachycardic and febrile at 39.4? C, is currently alert oriented x4, answering all questions appropriately not altered. No signs of trauma. She denies any chest pain, abdominal pain, back pain, nausea, vomiting, vision changes urinary complaints. She does states she feels profoundly weak. Septic bundle was initiated given patient's vitals and fever. Patient denies any trauma or injury. <Alfredo Adams MD - Last Filed: 01/20/25 04:19> Related Data Home Medications: Home Medications ?Medication ?Instructions ?Recorded ?Confirmed ?Last Taken ?Type aspirin 81 mg tablet 81 mg PO DAILY 10/06/20 01/19/25 01/13/25 History furosemide 40 mg tablet 40 mg PO DAILY 01/10/25 01/19/25 01/18/25 History methylprednisolone 4 mg tablet 4 mg PO QAM 01/10/25 01/19/25 01/18/25 History (Medrol) polyethylene glycol 1 ea miscellaneous PRN PRN 01/10/25 01/19/25 01/15/25 History constipation polyvinyl alcohol-povidone 0.5 1 drp EACH EYE QHS PRN dry eye(s) 01/10/25 01/19/25 Unknown History %-0.6 % eye drops tamsulosin 0.4 mg capsule 0.4 mg PO DAILY 01/10/25 01/19/25 01/17/25 History <Alfredo Adams MD - Last Filed: 01/20/25 04:19> Allergies/Adverse Reactions: Allergies Allergy/AdvReac Type Severity Reaction Status Date / Time Benzodiazepines AdvReac Intermediate Confusion Verified 01/10/25 12:52 <Alfredo Adams MD - Last Filed: 01/20/25 04:19> Review of Systems 2 Review of Systems: As reviewed above in HPI <Alfredo Adams MD - Last Filed: 01/20/25 04:19> [facility] Past Medical History Medical History: Medical History (Updated 01/19/25 @ 11:11 by Sukhwinder Tyler MD) Calculus of proximal right ureter Urinary tract infection GERD (gastroesophageal reflux disease) Hepatic steatosis COPD (chronic obstructive pulmonary disease) pulmonary function test 05/09/2019 Sjogrens syndrome Aortic atherosclerosis SLE (systemic lupus erythematosus) Multiple sclerosis Obesity <Alfredo Adams MD - Last Filed: 01/20/25 04:19> Surgical History Surgical History: Surgical History History of carpal tunnel surgery of left wrist History of cholecystectomy History of total hysterectomy Hx of cystoscopy <Alfredo Adams MD - Last Filed: 01/20/25 04:19> Family History Family History: Family History Father Diabetes mellitus History of multiple strokes Pacemaker Hypertension Liver cancer Heart problem Mother Hypertension History of multiple strokes Diabetes mellitus Other Alzheimer disease Bladder cancer Heart disease Hypothyroid <Alfredo Adams MD - Last Filed: 01/20/25 04:19> Social History Social History: Social History Smoking packs per day: 0.5 Smoking cigarettes per day: 10.0 Years smoked: 5 Smoking pack-years: 2.50 Smoking status: Former smoker Tobacco type: cigarettes Second hand tobacco smoke exposure: No Smoking end date: 07/04/90 Alcohol intake: former Substance use: never Substance use type: does not use Do You Feel Safe in your Home?: Yes Lack of Transportation: No Lack of Food: Never True Current Housing: I Have Housing Concerned About Future Housing: No Difficulty Paying Gas/Electric Bills: No Difficulty Paying for Meds: No Currently Unemployed: No Education: Associate Degree Difficulty w/ Childcare or Family Care: No Living arrangements: with family Occupation/Education: retired Gender identity (if verbalized by the patient): Female Sexual Orientation (if Verbalized by the Patient): Straight or Heterosexual Spiritual care concerns: No Agree to blood products: Yes <Alfreod Adams MD - Last Filed: 01/20/25 04:19> Exam 2 Narrative: GENERAL: Ill-appearing, toxic appearing, awake and answering questions appropriately. Morbidly obese. HEAD: Normocephalic EYES: [PERRLA and EOMI.] ENT: Nares clear, no rhinorrhea or epistaxis. Mucous membranes moist. NECK: Supple. CHEST: Coarse bibasilar breath sounds, tachypnea, no cough HEART: Tachycardic rate, regular rhythm. No murmur heard. [Normal peripheral pulses.] ABDOMEN: [Soft, nondistended], [nontender], [No rigidity or guarding] EXTREMITIES: Normal range of motion. [No edema.] SKIN: Warm, dry, no rash. NEURO: Moving all extremities, no focal deficits or facial asymmetry. No slurring speech. Alert and oriented x3 PSYCH: [Normal mood and affect.] <Alfredo Adams MD - Last Filed: 01/20/25 04:19> Course CASINO SUPERVISOR/PA Physician Supervision [id number]: Patient signed out pending completion of her workup. 59-year-old female history of MS who underwent a urologic procedure on 12/18 presenting in septic shock requiring vasopressor support. Unfortunately Radiology is unavailable at our hospital this morning. Per my read her CT abdomen pelvis shows right-sided hydronephrosis, with hydroureter and fat stranding. Urology was consulted. They are planning to take the patient to the OR. Case was discussed with our visual basic .net developer. She will be switched from cefepime to meropenem. Patient will go to the OR and then to the ICU further management. <Bishop Reece MD - Last Filed: 01/19/25 10:57> Vital Signs Vital signs: Vital Signs Temperature 39.4 C H 01/19/25 05:50 Pulse Rate 120 H 01/19/25 05:50 Respiratory Rate 29 H 01/19/25 05:50 Blood Pressure 105/63 01/19/25 05:50 Pulse Oximetry 95 01/19/25 05:50 Oxygen Delivery Room Air 01/19/25 05:50 Temperature 36.9 C 01/20/25 04:00 Pulse Rate 82 01/20/25 04:00 Respiratory Rate 19 01/20/25 04:00 Blood Pressure 109/97 H 01/20/25 04:00 Pulse Oximetry 93 01/20/25 04:00 Oxygen Delivery Room Air 01/20/25 00:00 Oxygen Flow Rate 2 01/19/25 20:00 <Alfredo Adams MD - Last Filed: 01/20/25 04:19> Vital Signs Temperature 39.4 C H 01/19/25 05:50 Pulse Rate 120 H 01/19/25 05:50 Respiratory Rate 29 H 01/19/25 05:50 Blood Pressure 105/63 01/19/25 05:50 Pulse Oximetry 95 01/19/25 05:50 Oxygen Delivery Room Air 01/19/25 05:50 Temperature 36.9 C 01/20/25 04:00 Pulse Rate 82 01/20/25 04:00 Respiratory Rate 19 01/20/25 04:00 Blood Pressure 109/97 H 01/20/25 04:00 Pulse Oximetry 93 01/20/25 04:00 Oxygen Delivery Room Air 01/20/25 00:00 Oxygen Flow Rate 2 01/19/25 20:00 <Bishop Reece MD - Last Filed: 01/19/25 10:57> Procedures Central Line Placement Right Femoral: Central Line Date: 01/19/25 <Alfredo Adams MD - Last Filed: 01/20/25 04:19> Central Line Time: 07:30 <Alfredo Adams MD - Last Filed: 01/20/25 04:19> Discussed w/ the patient/family/POA,the placement of a central venous catheter, including its clinical necessity/indication & associated potential risks, benifits and alternatives.: Yes <Alfredo Adams MD - Last Filed: 01/20/25 04:19> The patient/family/POA understand(s) and acknowledge(s) the need to proceed with central venous catheter insertion as an important element of the patient's clinical management.: Yes <Alfredo Adams MD - Last Filed: 01/20/25 04:19> Time Out Performed: Yes <Alfredo Adams MD - Last Filed: 01/20/25 04:19> Patient Placed on Monitor/Pulse Ox: Yes <Alfredo Adams MD - Last Filed: 01/20/25 04:19> Max. Sterile Barrier Technique: Caps, large sterile sheet and hand hygiene <Alfredo Adams MD - Last Filed: 01/20/25 04:19> Central Line Prep: 2% chlorhexidine scrub and sterile drapes applied <Alfredo Adams MD - Last Filed: 01/20/25 04:19> Technique: US-Guided <Alfredo Adams MD - Last Filed: 01/20/25 04:19> Local Anesthetic: lidocaine 1% <Alfredo Adams MD - Last Filed: 01/20/25 04:19> Amount of anesthesia used (mL): 5 <Alfredo Adams MD - Last Filed: 01/20/25 04:19> Ultrasound Used for Placement: Yes <Alfredo Adams MD - Last Filed: 01/20/25 04:19> Central Line Lumen Inserted: triple <Alfredo Adams MD - Last Filed: 01/20/25 04:19> Post Procedure: sutured in place, good blood return, all ports aspirated, flushed, capped and sterile dressing applied <MD Rohini Wolfe Last Filed: 01/20/25 04:19> Patient Tolerated Procedure: well and no complications <Alfredo Adams MD - Last Filed: 01/20/25 04:19> Complications: none <Alfredo Adams MD - Last Filed: 01/20/25 04:19> MDM - Fever MDM Narrative Medical decision making narrative: 59-year-old female with a past medical history including seizure disorder, multiple sclerosis, type 2 diabetes, kidney stone history. She was hospitalized at [facility] from January 02 through January 07 for acute encephalopathy and had a kidney stone at that time. She had a ureteral stent placed with urologist Dr. Stanton. Patient was discharged with outpatient Neurology and Urology follow-up. She had a procedure done on the just 2 days ago where she had a cystoscopy with extraction of ureteral stone and removal of the previously mentioned stent. Patient went home after the procedure and EMS was called to scene this morning were patient was feeling unwell, fevers, having reportedly low blood pressures, tachycardic and altered mentation. She was transported BLS and brought to room 12 for evaluation. On arrival she is tachycardic and febrile at 39.4? C, is currently alert oriented x4, answering all questions appropriately not altered. No signs of trauma. She denies any chest pain, abdominal pain, back pain, nausea, vomiting, vision changes urinary complaints. She does states she feels profoundly weak. Septic bundle was initiated given patient's vitals and fever. Patient denies any trauma or injury. Patient appears ill and toxic and does have some coarse breath sounds as well as high fever and tachycardia with soft blood pressures. She was given a 30 cc/kg bolus of fluids for septic protocol and given Tylenol 1 g p.o. for her fever. She was started on vancomycin and cefepime empirically while workup is underway. Chest x-ray, EKG, CBC, CMP, lactic acid, blood cultures ordered. Urinalysis with straight catheterization obtained. CT of the head ordered for her reported mental status changes which is resolved. CT abdomen pelvis with IV contrast for further evaluation given her recent ureteroscopic procedure with stent and stone there likely is some source of intra-abdominal process causing her septic pathology today. Central venous catheter was placed secondary to persistently low blood pressures decided volume resuscitation. She was started on peripheral norepinephrine until central access placed. Right femoral central access successful. Central line okay to use. Norepinephrine switched over. Patient pending blood work and CT scans. Signed out to oncoming ER physician pending completion workup him and admission to the ICU. <Alfredo Adams MD - Last Filed: 01/20/25 04:19> Lab Data Result diagrams: 01/19/25 06:08 01/19/25 18:16 <Alfredo Adams MD - Last Filed: 01/20/25 04:19> Labs: Lab Results 01/19/25 01/19/25 01/19/25 Range/Units 06:08 07:43 08:18 WBC 4.1 L (4.5-10.0) K/mm3 RBC 3.64 L (4.2-5.4) M/mm3 Hgb 12.5 (12.0-15.0) g/dL Hct 37.4 (37.0-47.0) % MCV 102.7 H (80-100) fl MCH 34.3 H (26-34) pg MCHC 33.4 (32-36) g/dl RDW 15.4 H (11.5-14.5) % Plt Count 77 L (150-375) k/mm3 MPV 12.2 H (7.4-10.4) fl Immature Gran % (Auto) 1.2 H (0-0.5) % Neut % (Auto) 87.4 H (45.5-73.1) % Lymph % (Auto) 10.4 L (18.3-44.2) % [place] % (Auto) 0.5 L (2.6-8.5) % Eos % (Auto) 0.0 (0-4.4) % Baso % (Auto) 0.5 (0.2-1.2) % Lymph # (Auto) 0.43 L (0.9-3.2) K/mm3 [place] # (Auto) 0.0 L (0.1-0.6) K/mm3 Eos # (Auto) 0.0 (0-0.3) K/mm3 Baso # (Auto) 0.0 (0.0-0.1) K/mm3 Abs Immat Gran (auto) 0.05 H (0.00-0.031) K/mm3 Absolute Neuts (auto) 3.6 (1.3-6.7) K/mm3 Absolute Nucleated RBC 0.040 H (0.0-0.012) K/mm3 Band Neutrophils % Not Reportable Nucleated RBC % 1.0 H (0.0-0.2) % Platelet Estimate Decreased (Adequate) % Immature Plt Fraction 8.6 (0.9-11.2) % Macrocytosis 1+ (NORMAL) Schistocytes None seen PT 15.2 H (11.1-14.7) Seconds INR 1.2 APTT 24.4 (22.3-36.8) Seconds Sodium 137 (137-145) mmol/L Potassium 2.4 L* (3.4-5.0) mmol/L Chloride 104 (98-107) mmol/L Carbon Dioxide 20 L (22-30) mmol/L Anion Gap 13 H (4-12) mmol/L BUN 20 H (7-17) mg/dL Creatinine 1.38 H (0.7-1.0) mg/dL Estim Creat Clear Calc 44 ml/min Estimated GFR 39 L (59 - ) Glucose 177 H (65-110) mg/dL Lactic Acid 5.2 H* 6.2 H* (0.7-2.0) mmol/L Calcium 7.6 L (8.4-10.2) mg/dL Total Bilirubin 0.8 (0.2-1.3) mg/dL AST 80 H (14-36) U/L ALT 65 H (6-35) U/L Alkaline Phosphatase 136 H (38-126) U/L C-Reactive Protein 4.9 H (<1.0) mg/dL Total Protein 4.9 L (6.3-8.2) g/dL Albumin 2.8 L (3.5-5.1) g/dL Urine Color Yellow (Yellow) Urine Appearance Clear (Clear) Urine pH 6.0 (5.0-9.0) Ur Specific [place] 1.012 (1.001-1.035) Urine Protein 1+ H (Negative) mg/dL Urine Glucose (UA) Negative (Negative) mg/dL Urine Ketones Trace H (Negative) mg/dL Ur Blood (Man) 3+ H (Negative) Urine Nitrate Positive H (Negative) Urine Bilirubin Negative (Negative) Urine Urobilinogen 0.2 (<2.0) mg/dL Leukocyte Esterase Rfl Trace H (Negative) DOMINGO/UL Urine RBC >100 H (0-2) /hpf Urine WBC 11-20 H (0-3) /hpf Ur Squamous Epith Cells None seen (Few) /hpf Urine Bacteria 3+ H /hpf Urine Casts 0-2 Nasal MRSA (PCR) (NOT DETECTE) 01/19/25 Range/Units 10:30 WBC (4.5-10.0) K/mm3 RBC (4.2-5.4) M/mm3 Hgb (12.0-15.0) g/dL Hct (37.0-47.0) % MCV (80-100) fl MCH (26-34) pg MCHC (32-36) g/dl RDW (11.5-14.5) % Plt Count (150-375) k/mm3 MPV (7.4-10.4) fl Immature Gran % (Auto) (0-0.5) % Neut % (Auto) (45.5-73.1) % Lymph % (Auto) (18.3-44.2) % [place] % (Auto) (2.6-8.5) % Eos % (Auto) (0-4.4) % Baso % (Auto) (0.2-1.2) % Lymph # (Auto) (0.9-3.2) K/mm3 [place] # (Auto) (0.1-0.6) K/mm3 Eos # (Auto) (0-0.3) K/mm3 Baso # (Auto) (0.0-0.1) K/mm3 Abs Immat Gran (auto) (0.00-0.031) K/mm3 Absolute Neuts (auto) (1.3-6.7) K/mm3 Absolute Nucleated RBC (0.0-0.012) K/mm3 Band Neutrophils % Nucleated RBC % (0.0-0.2) % Platelet Estimate (Adequate) % Immature Plt Fraction (0.9-11.2) % Macrocytosis (NORMAL) Schistocytes PT (11.1-14.7) Seconds INR APTT (22.3-36.8) Seconds Sodium (137-145) mmol/L Potassium (3.4-5.0) mmol/L Chloride (98-107) mmol/L Carbon Dioxide (22-30) mmol/L Anion Gap (4-12) mmol/L BUN (7-17) mg/dL Creatinine (0.7-1.0) mg/dL Estim Creat Clear Calc ml/min Estimated GFR (59 - ) Glucose (65-110) mg/dL Lactic Acid (0.7-2.0) mmol/L Calcium (8.4-10.2) mg/dL Total Bilirubin (0.2-1.3) mg/dL AST (14-36) U/L ALT (6-35) U/L Alkaline Phosphatase (38-126) U/L C-Reactive Protein (<1.0) mg/dL Total Protein (6.3-8.2) g/dL Albumin (3.5-5.1) g/dL Urine Color (Yellow) Urine Appearance (Clear) Urine pH (5.0-9.0) Ur Specific [place] (1.001-1.035) Urine Protein (Negative) mg/dL Urine Glucose (UA) (Negative) mg/dL Urine Ketones (Negative) mg/dL Ur Blood (Man) (Negative) Urine Nitrate (Negative) Urine Bilirubin (Negative) Urine Urobilinogen (<2.0) mg/dL Leukocyte Esterase Rfl (Negative) DOMINGO/UL Urine RBC (0-2) /hpf Urine WBC (0-3) /hpf Ur Squamous Epith Cells (Few) /hpf Urine Bacteria /hpf Urine Casts Nasal MRSA (PCR) Not detected (NOT DETECTE) <Alfredo Adams MD - Last Filed: 01/20/25 04:19> Lab Results 01/19/25 01/19/25 01/19/25 Range/Units 06:08 07:43 08:18 WBC 4.1 L (4.5-10.0) K/mm3 RBC 3.64 L (4.2-5.4) M/mm3 Hgb 12.5 (12.0-15.0) g/dL Hct 37.4 (37.0-47.0) % MCV 102.7 H (80-100) fl MCH 34.3 H (26-34) pg MCHC 33.4 (32-36) g/dl RDW 15.4 H (11.5-14.5) % Plt Count 77 L (150-375) k/mm3 MPV 12.2 H (7.4-10.4) fl Immature Gran % (Auto) 1.2 H (0-0.5) % Neut % (Auto) 87.4 H (45.5-73.1) % Lymph % (Auto) 10.4 L (18.3-44.2) % [place] % (Auto) 0.5 L (2.6-8.5) % Eos % (Auto) 0.0 (0-4.4) % Baso % (Auto) 0.5 (0.2-1.2) % Lymph # (Auto) 0.43 L (0.9-3.2) K/mm3 [place] # (Auto) 0.0 L (0.1-0.6) K/mm3 Eos # (Auto) 0.0 (0-0.3) K/mm3 Baso # (Auto) 0.0 (0.0-0.1) K/mm3 Abs Immat Gran (auto) 0.05 H (0.00-0.031) K/mm3 Absolute Neuts (auto) 3.6 (1.3-6.7) K/mm3 Absolute Nucleated RBC 0.040 H (0.0-0.012) K/mm3 Band Neutrophils % Not Reportable Nucleated RBC % 1.0 H (0.0-0.2) % Platelet Estimate Decreased (Adequate) % Immature Plt Fraction 8.6 (0.9-11.2) % Macrocytosis 1+ (NORMAL) Schistocytes None seen PT 15.2 H (11.1-14.7) Seconds INR 1.2 APTT 24.4 (22.3-36.8) Seconds Sodium 137 (137-145) mmol/L Potassium 2.4 L* (3.4-5.0) mmol/L Chloride 104 (98-107) mmol/L Carbon Dioxide 20 L (22-30) mmol/L Anion Gap 13 H (4-12) mmol/L BUN 20 H (7-17) mg/dL Creatinine 1.38 H (0.7-1.0) mg/dL Estim Creat Clear Calc 44 ml/min Estimated GFR 39 L (59 - ) Glucose 177 H (65-110) mg/dL Lactic Acid 5.2 H* 6.2 H* (0.7-2.0) mmol/L Calcium 7.6 L (8.4-10.2) mg/dL Total Bilirubin 0.8 (0.2-1.3) mg/dL AST 80 H (14-36) U/L ALT 65 H (6-35) U/L Alkaline Phosphatase 136 H (38-126) U/L C-Reactive Protein 4.9 H (<1.0) mg/dL Total Protein 4.9 L (6.3-8.2) g/dL Albumin 2.8 L (3.5-5.1) g/dL Urine Color Yellow (Yellow) Urine Appearance Clear (Clear) Urine pH 6.0 (5.0-9.0) Ur Specific [place] 1.012 (1.001-1.035) Urine Protein 1+ H (Negative) mg/dL Urine Glucose (UA) Negative (Negative) mg/dL Urine Ketones Trace H (Negative) mg/dL Ur Blood (Man) 3+ H (Negative) Urine Nitrate Positive H (Negative) Urine Bilirubin Negative (Negative) Urine Urobilinogen 0.2 (<2.0) mg/dL Leukocyte Esterase Rfl Trace H (Negative) DOMINGO/UL Urine RBC >100 H (0-2) /hpf Urine WBC 11-20 H (0-3) /hpf Ur Squamous Epith Cells None seen (Few) /hpf Urine Bacteria 3+ H /hpf Urine Casts 0-2 Nasal MRSA (PCR) (NOT DETECTE) 01/19/25 Range/Units 10:30 WBC (4.5-10.0) K/mm3 RBC (4.2-5.4) M/mm3 Hgb (12.0-15.0) g/dL Hct (37.0-47.0) % MCV (80-100) fl MCH (26-34) pg MCHC (32-36) g/dl RDW (11.5-14.5) % Plt Count (150-375) k/mm3 MPV (7.4-10.4) fl Immature Gran % (Auto) (0-0.5) % Neut % (Auto) (45.5-73.1) % Lymph % (Auto) (18.3-44.2) % [place] % (Auto) (2.6-8.5) % Eos % (Auto) (0-4.4) % Baso % (Auto) (0.2-1.2) % Lymph # (Auto) (0.9-3.2) K/mm3 [place] # (Auto) (0.1-0.6) K/mm3 Eos # (Auto) (0-0.3) K/mm3 Baso # (Auto) (0.0-0.1) K/mm3 Abs Immat Gran (auto) (0.00-0.031) K/mm3 Absolute Neuts (auto) (1.3-6.7) K/mm3 Absolute Nucleated RBC (0.0-0.012) K/mm3 Band Neutrophils % Nucleated RBC % (0.0-0.2) % Platelet Estimate (Adequate) % Immature Plt Fraction (0.9-11.2) % Macrocytosis (NORMAL) Schistocytes PT (11.1-14.7) Seconds INR APTT (22.3-36.8) Seconds Sodium (137-145) mmol/L Potassium (3.4-5.0) mmol/L Chloride (98-107) mmol/L Carbon Dioxide (22-30) mmol/L Anion Gap (4-12) mmol/L BUN (7-17) mg/dL Creatinine (0.7-1.0) mg/dL Estim Creat Clear Calc ml/min Estimated GFR (59 - ) Glucose (65-110) mg/dL Lactic Acid (0.7-2.0) mmol/L Calcium (8.4-10.2) mg/dL Total Bilirubin (0.2-1.3) mg/dL AST (14-36) U/L ALT (6-35) U/L Alkaline Phosphatase (38-126) U/L C-Reactive Protein (<1.0) mg/dL Total Protein (6.3-8.2) g/dL Albumin (3.5-5.1) g/dL Urine Color (Yellow) Urine Appearance (Clear) Urine pH (5.0-9.0) Ur Specific [place] (1.001-1.035) Urine Protein (Negative) mg/dL Urine Glucose (UA) (Negative) mg/dL Urine Ketones (Negative) mg/dL Ur Blood (Man) (Negative) Urine Nitrate (Negative) Urine Bilirubin (Negative) Urine Urobilinogen (<2.0) mg/dL Leukocyte Esterase Rfl (Negative) DOMINGO/UL Urine RBC (0-2) /hpf Urine WBC (0-3) /hpf Ur Squamous Epith Cells (Few) /hpf Urine Bacteria /hpf Urine Casts Nasal MRSA (PCR) Not detected (NOT DETECTE) <Bishop Reece MD - Last Filed: 01/19/25 10:57> ABG Data ABG results: 01/19/25 09:59 Puncture Site Left radial ABG pH 7.458 H ABG pCO2 25.8 L ABG pO2 79.2 L ABG PO2/FiO2 Ratio 2.83 ABG HCO3 17.9 L ABG O2 Saturation 96.5 ABG O2 Content 14.9 L ABG Base Excess -4.7 A-a Gradient 90.0 Oxyhemoglobin 95.0 Total Hemoglobin 11.1 L O2 Delivery Device Nasal cannula O2 Liters/Min 2.0 FiO2 28 <Alfredo Adams MD - Last Filed: 01/20/25 04:19> 01/19/25 09:59 Puncture Site Left radial ABG pH 7.458 H ABG pCO2 25.8 L ABG pO2 79.2 L ABG PO2/FiO2 Ratio 2.83 ABG HCO3 17.9 L ABG O2 Saturation 96.5 ABG O2 Content 14.9 L ABG Base Excess -4.7 A-a Gradient 90.0 Oxyhemoglobin 95.0 Total Hemoglobin 11.1 L O2 Delivery Device Nasal cannula O2 Liters/Min 2.0 FiO2 28 <Bishop Reece MD - Last Filed: 01/19/25 10:57> Critical Care Time Critical Care Time Critical Care Time: Yes <Alfredo Adams MD - Last Filed: 01/20/25 04:19> Total Critical Care Time: 75 (Critical care time is exclusive of the separately billable procedures as outlined above.) <Alfredo Adams MD - Last Filed: 01/20/25 04:19> Discharge Plan Discharge Clinical Impression: Septic shock, Hx of multiple sclerosis, Kidney stones, Fever, Urinary tract infection <Alfredo Adams MD - Last Filed: 01/20/25 04:19> Patient Disposition: Still a Patient <Alfredo Adams MD - Last Filed: 01/20/25 04:19> Condition: Stable <Alfredo Adams MD - Last Filed: 01/20/25 04:19>
--- OUTSIDE RECORDS SUMMARY | 2025-01-19 06:10 | XMS_ITS | Encounter Summary ---
Author Organization [facility] Address [address] [place] [id number] Care Team Providers Care Paper Folder Name Role Phone Warren Cowan MD Primary Care Prov ider Encounter Details Date Type Department Care Team (Late st Contact Info) Description 10/24/2016 Orders Only [facility] ProviderRavi MD [address] [place] [id number] Social History Tobacco Use Types Packs/Day Years Used Date Smoking Tobacco: Former Alcohol Use Standard Drinks/Week Comments No 0 (1 standard drink = 0.6 oz pur e alcohol) Comments Unknown Sex and Gender Information Value Date Recorded Sex Assigned at Not on file Legal Sex Female 3:44 AM [employer] Gender Identity Not on file Sexual Orientation [...] on filedocumented in this encounter Care Teams Paper Folder Relationship Specialty Start Date End Date Warren Cowan MD [address] [place] [address] PCP - General 10/01/16 documented as of this encounter
--- OUTSIDE RECORDS SUMMARY | 2025-01-19 06:10 | XMS_ITS | Continuity of Care Document ---
Author Organization [facility] Address [address] [facility] [address] [place] [address] Phone Care Team Providers Care Water Server Name Role Phone Jasper Prescott Unavailable Unavailable [...] Copied on Encounter Office/outpat ient Visit, Est [facility], [address] [place] [address] [address], [place], [place], [id number], [place] tel:[phone] [facility] [place] No Information 1-201 0 Krishnasamy Jasper. [address] [facility] [address], [place], [address], [place]. tel:[phone] [facility], [address], [place], [place], [id number], [place] tel:[phone] [facility] [place] No Information 2-200 9 Krishnasamy Jasper. [address] [facility] [address], [place], [place], [facility], [place]. tel:[phone] Referring Provider: Jasper wilson, [facility] [address], [place], [facility]. tel:[phone] [facility], [address], [place], [place], [id number], [place] tel:[phone] SEC [facility] [place] No Information 3-200 9 Krishnasamy Jasper. [facility] [address], [place], [facility], [place]. tel:[phone] [facility], [id number] [place] [address] [address], [place], [place], [id number], [place] tel:[phone] SEC [facility] [place] No Information 9-200 9 Carlos OD Chetan. [address] [place] [address] [address], [address], [place], [facility], [place]. tel:[phone] Office/outpat ient Visit, Est [facility], [id number] [place] [address] [address], [place], [place], [id number], [place] tel:[phone] SEC [facility] [place] No Information 4-200 9 Krishnasamy Jasper. [address] [place] [address] [address], [place], [facility], [place]. tel:[phone] [facility], [address] [place] [address] [address], [place], [place], [id number], [place] tel:[phone] SEC [facility] [place] No Information 3-200 9 Krishnasamy Jasper. [address] [place] [address] [address], [place], [facility], [place]. tel:[phone] Office/outpat ient Visit, [facility], [address], [place], [place], [id number], [place] tel:[phone] SEC [facility] [place] No Information Dec-0 9-200 8 Krishnasamy Jasper. [facility] [address], [facility], [place]. tel:[phone] Office/outpat ient Visit, [facility], [address] [place] [address] [address], [place], [place], [id number], [place] tel:[phone] SEC [facility] No Information Chava-1 3-200 8 Krishnasamy Jasper. [address] [place] [address], [facility], [place]. tel:[phone] Office/outpat ient Visit, [facility], [address] [place] [address] [address], [place], [place], [id number], tel:[phone] [facility] No Information May-0 2-200 8 Krishnasamy Jasper. [address] [place] [address], [facility], [place]. tel:[phone] Office/outpat ient Visit, [facility], [address] [place] [address] [address], [place], [place], [id number], [place] tel:[phone] [facility] No Information Mar-2 8-200 8 Krishnasamy Jasper. [address] [place] [address], [facility], [place]. tel:[phone] [facility], [address] [place] [address] [address], [place], [place], [id number], [place] tel:[phone] SEC [facility] [place] No Information Mar-2 5-200 8 Krishnasamy Jasper. [address] [place] [address], [facility], [place]. tel:[phone] Family History Family Member Type Diagnosis Age At Onset No Information Payers Payer name Insurance type Covered republican ID Authoriza tion(s) No Information Social History [...]
--- OUTSIDE RECORDS SUMMARY | 2025-01-19 06:10 | XMS_ITS | Clinical Summary ---
Author Organization [facility] Address [facility] [place] [address] Care Team Providers Care Switch Operator Name Role Phone Mandie Schaefer CANOE INSPECTOR FINAL Primary Care Provider + [phone] Tonia Mcrae MD Unavailable [phone] Allergies No known active allergies Medications vitamin [...] (MEDROL) 4 MG tabletIndicat ions:MS (multiple sclerosis) ([facility]) Take 1 tablet (4 mg total) by [...] once a week. Just started 01/10/25 Active potassium chloride CR (K-TAB) 10 MEQ Tab CR tablet Take 1 tablet (10 mEq total) by mouth daily. 01/15/20 Active diclofenac EC (VOLTAREN) 75 MG tablet [...] Encounters Date Type Department Care Team Description 01/17/2025 11:37 AM CDT [place] [address] Marcellus Mary MD Jackson, Samantha Rae, FNP 01/17/2025 11:36 AM CDT - 01/17/2025 1:01 PM [place] [address] Isai Stanton MD CYSTOSCOPY WITH RIGHT URETEROSCOPY, STONE REMOVAL, RIGHT RETROGRADE PYELOGRAM, AND RIGHT STENT REMOVAL 01/17/2025 8:15 AM CDT - 01/17/2025 2:19 PM CDT Hospital Encounter [place] [address] Isai Stanton MD Discharge Disposition: Home or Self Care (Routine Discharge) 01/17/2025 Travel 01/17/2025 Prep for [place] [address] Jose Juan Mi MD 01/15/2025 Results Follow-Up [facility] [address] [place] [address] Jacque Bustamante RN COMPREHENSIVE METABOLIC PANEL, CBC W/DIFF AUTOMATED 01/14/2025 8:00 AM CDT Home Care Visit [address] [place] [address] Meeta Coronado RN SN NON ADMIT SOC 01/11/2025 2:04 PM CDT - 01/11/2025 11:59 PM [place] [address] Isai Stanton MD Discharge Disposition: Home or Self Care (Routine Discharge) 01/11/2025 2:03 PM CDT [place] [address] Digna Maloney PA-C Discharge Disposition: Home or Self Care (Routine Discharge) 01/11/2025 2:00 PM CDT - 01/11/2025 2:02 PM CDT [place] [address] Mandie Schaefer NP Discharge Disposition: Home or Self Care (Routine Discharge) 01/11/2025 [place] [address] Mandie Schaefer NP 01/11/2025 Travel 01/10/2025 Travel 01/08/2025 Hospital Follow-up [place] [address] Viky Pereira LPN Follow Up Call (NATHALIE 01/02-01/06/25) 01/03/2025 11:53 AM CDT - 01/03/2025 12:57 PM CD[place] [address] Isai Stanton MD CYSTOSCOPY, RIGHT RETROGRADE PYELOGRAM, RIGHT URETERAL STENT PLACEMENT 01/03/2025 11:46 AM CDT Anesthesia [place] [address] Shamar Mead MD Butler, Debbie Calderon [facility], VANGIE 01/02/2025 2:15 PM CDT - 01/06/2025 10:39 AM CDT Hospital Encounter [facility] [address] [place] [address] Roberto Irwin MD Lamonica, MD Raphael Gerardo Melissa K, PA Poettker, Digna Preston PA-C Weakness Discharge Disposition: Home [...] drink = 0.6 oz pur e alcohol) [facility] Utilities Answer Date Recorded In the past 12 months has e [employer], gas, oil, or water [employer] threatened to shut off services in your [...] any time in the past 12 m [facility], were you homeless or living in a penitentiary (including now)? No 01/02/2025 Comments No Sex and Gender Information Value Date Recorded Sex Assigned at Female 01/02/2025 2:26 PM CDT Legal Sex Female 1:10 AM CDT Gender Identity Not on file Sexual Orientation Not on file Last Filed Vital Signs Vital Sign Reading Time Taken Comments Blood Pressure 134/84 01/17/2025 2:11 PM CDT Pulse 96 01/17/2025 2:11 PM CDT Temperature 36.6 C (97.9 F) 01/17/2025 2:11 PM CDT Respiratory Rate 18 01/17/2025 2:11 PM CDT Oxygen Saturation 98% 01/17/2025 2:11 PM CDT Inhaled Oxygen Concentration - - Weight 97.5 kg (214 lb 15.2 oz) 01/17/2025 9:19 AM CDT Height 162.6 cm (5' 4) 01/10/2025 9:12 AM CDT Body Mass Index 36.9 01/10/2025 9:12 AM CDT Plan of Treatment Health Maintenance [...] and discharge planning Lifestyle No Ronna Barrientos, 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 Devices Explanted Type Area Help Desk Team Leader Device Identifier Shelf Expiration Date Model / Serial / Lot Stent Ureteral Pigtail 6fr 24cm Crv Taper Tip - [id number] Implanted:Qty : 1 on 01/03/2025 by Isai Stanton MD at [facility] Explanted:Qty : 1 on 01/17/2025 by Isai Stanton MD at [facility] Stent Right: [employer] LASHAWN [id number] 05/31/2027 [id number] Procedures Procedure Name Priority Date/Time Associated Diagnosis Comments POCT GLUCOSE - DOCKED DEVICE Routine 01/17/2025 12:46 PM CDT SURG XR RETROGRD UROGRAPHY Routine 01/17/2025 12:37 PM CDT LITHOTRIPSY INLCUDING INSERTION OF INDWELLING URETERAL STENT 01/17/2025 11:37 AM CDT RIGHT URETERAL STONE N20.1 Case Notes SCHED BY FAX ON 01/09/25 JUSTYN PHONE ASSESS POCT GLUCOSE - DOCKED DEVICE Routine 01/17/2025 9:11 AM CDT CBC W/DIFF AUTOMATED Routine 01/11/2025 2:18 PM CDT Ureteral stone Complicated UTI (urinary tract infection) SEVERO (acute kidney injury) COMPREHENSIVE METABOLIC PANEL Routine 01/11/2025 2:18 PM CDT Ureteral stone Complicated UTI (urinary tract infection) SEVERO (acute kidney injury) URINE BACTERIA CULTURE Routine 01/11/2025 2:11 PM CDT Calculus of ureter POCT [...] Routine 01/03/2025 12:12 PM CDT CYSTOSCOPY STENT INSERTION/REMOVAL/CH MARIO 01/03/2025 11:46 AM CDT right renal stone [...] 8:36 PM CDT URINE BACTERIA CULTURE STAT 01/02/2025 6:48 PM CDT XR CHEST PORTABLE STAT [...] from Last 3 Months Results * (ABNORMAL) POCT glucose (01/17/2025 12:46 PM CDT) Only the most recent of20 resultswithin the time period is included. GLUCOSE POC 154(H) 70 - 99 mg/dL 01/17/2025 12:48 PM CDT [facility] 01/17/2025 12:4 6 PM CDT us Isai Stanton MD POCT ORDERABLES - DEVICE Final Result [facility] [address] [place] [address], [place] [phone] * SURG XR RETROGRD UROGRAPHY (01/17/2025 12:37 PM CDT) Only the most recent of2 resultswithin the time period is included. Anatomical Region Laterality Modality Abdomen Radiographic Malgorzata ging 01/18/2025 7:05 AM CDT Impressions 01/18/2025 7:05 AM CDT Impression: No radiologic interpretation will be issued. The report and documentation of this exam will reside in the patient's permanent medical record and in the attending physician's procedure note. Ordered By: ISAI STANTON Interpreted By: Uri Olivera MD, 01/18/2025 7:05 AM Narrative 01/18/2025 7:05 AM CDT [place] [address] FLUOROSCOPY CONTROL ONLY Procedure Note Uri Olivera MD - 01/18/2025 [place] [address] FLUOROSCOPY CONTROL ONLY Impression: No radiologic interpretation will be issued. The report and documentationof this exam will reside in the patient's permanent medical record and inthe attending physician's procedure note. Ordered By: ISAI STANTON Interpreted By: Uri Olivera MD, 01/18/2025 7:05 AM us Isai Stanton MD IMAGES ONLY Final Result * (ABNORMAL) COMPREHENSIVE METABOLIC PANEL (01/11/2025 2:18 PM CDT) Only the most recent of3 resultswithin the time period is included. [facility] GLUCOSE 175(H) 70 - 99 MG/DL 01/11/2025 2:57 PM CDT [facility] BUN 16 7 - 18 MG/DL 01/11/2025 2:57 PM CDT [facility] CREATININE S/P/B 1.18(H) 0.55 - 1.02 MG/DL 01/11/2025 2:57 PM CDT [facility] SODIUM S/P/B 138 136 - 145 MMOL/L 01/11/2025 2:57 PM T [facility] POTASSIUM S/P/B 3.1(L) 3.5 - 5.1 MMOL/L 01/11/2025 2:57 PM CDT [facility] CHLORIDE S/P/B 104 97 - 115 MMOL/L 01/11/2025 2:57 PM CDT [facility] CO2 27.4 21 - 32 MMOL/L 01/11/2025 2:57 PM CDT [facility] CALCIUM S/P/B 9.1 8.5 - 10.1 MG/DL 01/11/2025 2:57 PM T [facility] BILIRUBIN TOTAL S/P/B 0.7 0.2 - 1.2 MG/DL 01/11/2025 2:57 PM T [facility] Comment: THIS ASSAY IS NOT RECOMMENDED FOR PATIENTS UNDERGOING TREATMENT WITH ELTROMBOPAG DUE TO THE POTENTIAL FOR FALSELY ELEVATED RESULTS. TOTAL PROTEIN S/P/B 6.8 6.4 - 8.2 G/DL 01/11/2025 2:57 PM T [facility] ALBUMIN S/P/B 3.3(L) 3.4 - 5.0 G/DL 01/11/2025 2:57 PM T [facility] AST 42(H) 15 - 37 U/L 01/11/2025 2:57 PM CDT [facility] ALT 61(H) 14 - 55 U/L 01/11/2025 2:57 PM CDT [facility] ALKALINE PHOSPHATASE S/P/B 225(H) 50 - 136 U/L 01/11/2025 2:57 PM CDT [facility] ANION GAP 6.6 2 - 10 MMOL/L 01/11/2025 2:57 PM CDT [facility] BUN CREATININE RATIO 13.6 6 - 26 01/11/2025 2:57 PM CDT [facility] A/G RATIO 0.9(L) 1.0 - 2.0 RATIO 01/11/2025 2:57 PM CDT [facility] GFR ESTIMATE 53(L) >90 ML/MIN/1.7 3 M2 01/11/2025 2:57 PM CDT [facility] Comment: NOTE: eGFR is not calculated for patients <18 years of age or gender unknown. This is an estimated GFR calculation using the new CKD EPI creatinine equation without race and so does not require a correction factor for race. This estimated GFR should not be used for calculating drug doses. 01/11/2025 2:18 PM CDT us Digna Maloney PA-C LABORATORY Final Resu lt [facility] [address] [place] [address], [place] [phone] * (ABNORMAL) CBC W/DIFF AUTOMATED (01/11/2025 2:18 PM CDT) Only the most recent of6 resultswithin the time period is included. WBC 8.81 4.5 - 11.0 x10'3/uL 01/11/2025 2:30 PM CDT [facility] RBC 4.16(L) 4.20 - 5.40 x10'6/uL 01/11/2025 2:30 PM CDT [facility] HGB 14.3 12.0 - 16.0 G/DL 01/11/2025 2:30 PM CDT [facility] HCT 42.2 38.0 - 48.0 % 01/11/2025 2:30 PM CDT [facility] MCV 101.4(H) 81.0 - 99.0 FL 01/11/2025 2:30 PM CDT [facility] MCH 34.4(H) 27.0 - 31.0 PG 01/11/2025 2:30 PM CDT [facility] MCHC 33.9 32.0 - 36.0 G/DL 01/11/2025 2:30 PM CDT [facility] RDW 16.2(H) 11.5 - 14.5 % 01/11/2025 2:30 PM CDT [facility] PLT 182 130 - 400 x10'3/uL 01/11/2025 2:30 PM CDT [facility] MPV 12.6(H) 9.3 - 12.2 FL 01/11/2025 2:30 PM CDT [facility] DIFFERENTIAL TYPE AUTOMATED DIFFERENTIAL 01/11/2025 2:30 PM CDT [facility] NEUTROPHILS % 63.7 % 01/11/2025 2:30 PM CDT [facility] LYMPHOCYTES % 20.4 % 01/11/2025 2:30 PM CDT [facility] MONOCYTES % 9.3 % 01/11/2025 2:30 PM CDT [facility] EOSINOPHILS 5.0 % 01/11/2025 2:30 PM CDT [facility] BASOPHILS 0.9 % 01/11/2025 2:30 PM CDT [facility] IMMATURE GRANS % 0.7 % 01/12/20 25 2:30 PM CDT [facility] ABS. NEUTROPHILS 5.61 1.80 - 7.70 x10'3/uL 01/11/2025 2:30 PM CDT [facility] ABS. LYMPHOCYTES 1.80 1.00 - 4.80 x10'3/uL 01/11/2025 2:30 PM CDT [facility] ABS. MONOCYTES 0.82 0.24 - 0.86 x10'3/uL 01/11/2025 2:30 PM CDT [facility] ABS. EOSINOPHILS 0.44(H) 0.04 - 0.36 x10'3/uL 01/11/2025 2:30 PM CDT [facility] ABS. BASOPHILS 0.08 0.01 - 0.08 x10'3/uL 01/11/2025 2:30 PM CDT [facility] ABS. IMMATURE GRANULOCYTES 0.06 0.00 - 0.49 x10'3/uL 01/11/2025 2:30 PM CDT [facility] 01/11/2025 2:18 PM CDT Digna Maloney PA-C LABORATORY Final Resu lt [facility] [address] [place] [address], * URINE BACTERIA CULTURE (01/11/2025 2:11 PM CDT) Only the most recent of2 resultswithin the time period is included. SPEC DESCRIPTION URINE CLEAN CATCH 01/11/2025 2:11 PM CDT [facility] SPECIAL REQUESTS NO SPECIAL REQUEST 01/11/2025 2:11 PM CDT [facility] CULTURE RESULT NO GROWTH 2 DAYS 01/13/2025 8:17 AM CDT [facility] URINE SPECIMEN OBTAINED BY CLEAN CATCH PROCEDURE / Unknown 01/11/2025 2:11 PM CDT 01/11/2025 2:21 PM CDT us Isai Stanton MD MICROBIOLOGY - GENERAL ORDERABL ES Final Result [facility] [address] [place] [address], * (ABNORMAL) BASIC METABOLIC PANEL (01/06/2025 4:58 AM CDT) Only the most recent of3 resultswithin the time period is included. GLUCOSE 149(H) 70 - 99 MG/DL 01/06/2025 5:44 AM CDT [facility] BUN 17 7 - 18 MG/DL 01/06/2025 5:44 AM CDT [facility] CREATININE S/P/B 0.95 0.55 - 1.02 MG/DL 01/06/2025 5:44 AM CDT [facility] SODIUM S/P/B 142 136 - 145 MMOL/L 01/06/2025 5:44 AM CDT [facility] POTASSIUM S/P/B 3.4(L) 3.5 - 5.1 MMOL/L 01/06/2025 5:44 AM CDT [facility] CHLORIDE S/P/B 109 97 - 115 MMOL/L 01/06/2025 5:44 AM CDT [facility] CO2 28.1 21 - 32 MMOL/L 01/06/2025 5:44 AM CDT [facility] CALCIUM S/P/B 8.9 8.5 - 10.1 MG/DL 01/06/2025 5:44 AM CDT [facility] ANION GAP 4.9 2 - 10 MMOL/L 01/06/2025 5:44 AM CDT [facility] BUN CREATININE RATIO 17.9 6 - 26 01/06/2025 5:44 AM CDT [facility] GFR ESTIMATE 69(L) >90 ML/MIN/1.7 3 M2 01/06/2025 5:44 AM CDT [facility] Comment: NOTE: eGFR is not [...] MD LABORATORY Final Result Performing Organization Address City/[facility]/ZIP Co de Phone Number [facility] [address] [place] [address], [place] [phone] * VITAMIN B-12 (01/05/2025 3:50 AM CDT) VITAMIN B12 S/P/B 483 254 - 1,320 PG/ML 01/05/2025 2:04 PM CDT [facility] 01/05/2025 3:50 AM CDT us Digna Maloney PA-C LABORATORY Final Resu lt [facility] [address] [place] [address], [place] [phone] * FOLIC ACID SERUM (01/05/2025 3:50 AM CDT) FOLATE 16.6 3.1 - 17.5 NG/ML 01/05/2025 2:04 PM CDT [facility] 01/05/2025 3:50 AM CDT Digna Maloney PA-C LABORATORY Final Resu lt Performing Organization Address City/[facility]/ZIP Co de Phone Number [facility] [address] [place] [address], [place] [phone] * (ABNORMAL) PHOSPHORUS, INORGANIC PHOSPHATE (01/04/2025 4:23 AM CDT) Only the most recent of3 resultswithin the time period is included. PHOSPHORUS 2.1(L) 2.5 - 4.9 MG/DL 01/04/2025 5:03 AM CDT [facility] 01/04/2025 4:23 AM CDT Isai Stanton MD LABORATORY Final Result Performing Organization Address [facility] Co de Phone Number [facility] [address] [place] [address], [place] [phone] * MAGNESIUM (01/04/2025 4:23 AM CDT) Only the most recent of3 resultswithin the time period is included. MAGNESIUM 2.2 1.8 - 2.4 MG/DL 01/04/2025 5:03 AM CDT [facility] 01/04/2025 4:23 AM CDT Isai Stanton MD LABORATORY Final Result Performing Organization Address City/[facility]/ZIP Co de Phone Number [facility] [address] [place] [address], * EEG (01/03/2025 10:37 PM CDT) Narrative [facility] - 01/03/2025 10:37 PM CDT [...] or of the predisposition to future seizures. oJse Rapp MD Epileptologist Thais JOSHUA NEUROLOGY ORDERABLES Edited Re sult - Final [facility] [address] [place] [address], [place] [phone] * (ABNORMAL) HEMOGLOBIN, GLYCOSYLATED (01/03/2025 6:41 AM CDT) HGB A1C 10.4(H) <5.7 % 01/03/2025 10:10 AM CDT [facility] Comment: ADA GUIDELINES 2010 5.7 TO 6.4% INCREASED RISK OF DIABETES > OR = 6.5% CONSISTENT WITH DIABETES ESTIMATED AVG GLUCOSE 252 mg/dL 01/03/2025 10:10 AM CDT [facility] 01/03/2025 6:41 AM CDT Ruth Salgado OCCUPATIONAL THERAPY CO DIRECTOR LABORATORY Final Resul t [facility] [address] [place] [address], [place] [phone] * HEPATITIS PANEL,ACUTE (01/03/2025 6:41 AM CDT) HEPATITIS B SURFACE AG NON-REACTI VE NON-REACTI VE 01/03/2025 9:58 AM CDT [facility] HEP B CORE IGM NON-REACTI VE NON-REACTI VE 01/03/2025 9:58 AM CDT [facility] HAV IGM NON-REACTI VE NON-REACTI VE 01/03/2025 9:58 AM CDT [facility] HEPATITIS C AB NON-REACTI VE NON-REACTI VE 01/03/2025 9:58 AM CDT [facility] 01/03/2025 6:41 AM CDT us Ruth Salgado OCCUPATIONAL THERAPY CO DIRECTOR LABORATORY Final Resul t [facility] [address] [place] [address], [place] [phone] * XR CHEST PORTABLE (01/02/2025 6:45 PM CDT) Anatomical Region Laterality Modality Chest Radiographic Malgorzata ging 01/02/2025 7:32 PM CDT Impressions 01/02/2025 7:34 PM CDT IMPRESSION: Minimal left basilar opacity likely reflecting minimal left basilar atelectasis. Referred By: Interpreted By: Patric Oscar DO, 01/02/2025 7:32 PM Narrative 01/02/2025 7:34 PM [address] [address] Examination: XR CHEST PORTABLE Exam time: 01/02/2025 [...] Procedure Note Patric Oscar DO - 01/02/[address] [address] Examination: XR CHEST PORTABLE Exam time: 01/02/2025 [...] DO, 01/02/2025 7:32 PM us Ruth Salgado OCCUPATIONAL THERAPY CO DIRECTOR GENERAL IMAGING Final Resul t * PRO-BRAIN NATRIURETIC PEPTIDE (01/02/2025 6:21 PM CDT) PRO-B TYPE NATRIURETIC PEPTIDE 67 <125 PG/ML 01/02/2025 7:17 PM CDT [facility] Comment: CUT POINTS ESTABLISHED BY INTERNATIONAL [...] 01/02/2025 6:21 PM CDT us Ruth Salgado OCCUPATIONAL THERAPY CO DIRECTOR LABORATORY Final Resul t [facility] [address] [place] [address], [place] [phone] * (ABNORMAL) POTASSIUM, SERUM (01/02/2025 6:21 PM CDT) POTASSIUM S/P/B 2.9(LL) 3.5 - 5.1 MMOL/L 01/02/2025 7:17 PM CDT [facility] Comment: Critical Result(s) Called at: 19:16:41 on 01/02/2025 by: Corie Valdez to and read back by:DORA GOODRICH 01/02/2025 6:21 PM CDT us Ruth Salgado OCCUPATIONAL THERAPY CO DIRECTOR LABORATORY Final Resul t [facility] [address] [place] [address], [place] [phone] * CT ABD+PEL W CON (01/02/2025 6:11 [...] 7:22 PM Narrative 01/02/2025 7:32 PM CDT [facility] [address] [facility], [place] [address] EXAMINATION: CT ABD+PEL W CON EXAM DATE: [...] Procedure Note Patric Oscar DO - 01/02/[address] [address] EXAMINATION: CT ABD+PEL W CON EXAM DATE: [...] Patric Oscar DO, 01/02/2025 7:22 PM Ruth Salgado OCCUPATIONAL THERAPY CO DIRECTOR CT Final Resul t * (ABNORMAL) KEPPRA LEVEL (01/02/2025 5:29 PM CDT) KEPPRA 102.6(H) 6.0 - 46.0 mcg/mL 01/05/2025 5:22 PM CDT [employer] [facility] Comment: THIS RESULT HAS BEEN VERIFIED BY REPEAT ANALYSIS. Brivaracetam (Briviact(R), Rikelta(R)) exhibits significant cross-reactivity in the Levetiracetam (Keppra(R), Spritam(R)) immunoassay. If Brivaracetam has been prescribed, order test code 42267 Levetiracetam by LCMSMS. Test Performed by [employer], [facility], [address] [place], [place] Warren Swanson M.D., Ph.D., Director of Laboratories , CLIA [id number] 01/02/2025 5:29 PM CDT Ruth Salgado OCCUPATIONAL THERAPY CO DIRECTOR LABORATORY Final Resul t [employer] [facility] [address] [place], [place] , * (ABNORMAL) DRUG SCREEN RAPID (01/02/2025 4:34 PM CDT) AMPHETAMINE (U) NEGATIVE NEGATIVE 5:40 PM CDT [facility] BARBITURATES SCREEN (U) NEGATIVE NEGATIVE 01/02/2025 5:40 PM CDT [facility] BENZODIAZEPINES SCREEN (U) NEGATIVE NEGATIVE 01/02/2025 5:40 PM CDT [facility] CANNABINOIDS SCREEN (U) NEGATIVE NEGATIVE 01/02/2025 5:40 PM CDT [facility] COCAINE METABOLITES (U) NEGATIVE NEGATIVE 01/02/2025 5:40 PM CDT [facility] METHADONE (U) NEGATIVE NEGATIVE 01/02/2025 5:40 PM CDT [facility] OPIATE SCREEN (U) POSITIVE(A) NEGATIVE 2024 5:40 PM CDT [facility] PHENCYCLIDINE PCP (U) NEGATIVE NEGATIVE 01/02/2025 5:40 PM CDT [facility] Comment: NOTE: RESULTS OF THIS DRUG SCREEN SHOULD BE USED FOR MEDICAL PURPOSES ONLY AND NOT FOR LEGAL OR EMPLOYMENT PURPOSES. POSITIVE RESULTS ARE NOT CONFIRMED. MEDICATIONS CONTAINING EPHEDRINE MAY CAUSE FALSE POSITIVE AMPHETAMINE CALL [phone], LAB, TO REQUEST CONFIRMATION TESTING. IF CREATININE IS <40 mg/dL. RECOLLECTION IS SUGGESTED. AMPHETAMINE- 500 NG/ML BARBITURATE- 200 NG/ML BENZODIAZEPINES- 200 NG/ML THC- 50 NG/ML COCAINE- 150 NG/ML METHADONE- 300 NG/ML OPIATE- 300 MG/ML PCP- 25 NG/ML CREATININE (U) 36.2 28 - 217 MG/DL 01/02/2025 5:40 PM CDT [facility] URINE SPECIMEN / Unknown 01/02/2025 4:34 PM CDT us Ruth Salgado OCCUPATIONAL THERAPY CO DIRECTOR URINE ORDERABLES Final Resu lt [facility] [address] [place] [address], * (ABNORMAL) URINALYSIS (01/02/2025 4:34 PM CDT) SPECIMEN TYPE URINE CLEAN CATCH 01/02/2025 4:33 PM CDT [facility] COLOR (U) LIGHT YELLOW 01/02/2025 5:40 PM CDT [facility] TRANSPARENCY TURBID 01/02/2025 5:40 PM CDT [facility] SPECIFIC GRAVITY (U) 1.011 1.001 - 1.030 01/02/2025 5:40 PM CDT [facility] U PH 6.5 5.0 - 9.0 01/02/2025 5:40 PM CDT [facility] LEUKOCYTES (U) 25(A) NEGATIVE 01/02/2025 5:40 PM CDT [facility] NITRITES 1+(A) NEGATIVE 01/02/2025 5:40 PM CDT [facility] PROTEIN RANDOM (U) NEGATIVE <30 MG/DL 01/02/2025 5:40 PM CDT [facility] GLUCOSE (U) >1000(A) NORMAL MG/DL 01/02/2025 5:40 PM CDT [facility] KETONES MG/DL (U) NEGATIVE NEGATIVE MG/DL 01/02/2025 5:40 PM CDT [facility] UROBILINOGEN NORMAL NORMAL MG/DL 01/02/2025 5:40 PM CDT [facility] BILIRUBIN (U) NEGATIVE NEGATIVE MG/DL 01/02/2025 5:40 PM CDT [facility] BLOOD (U) TRACE(A) NEGATIVE 01/02/2025 5:40 PM CDT [facility] WBC/HPF 7(H) <6 /HPF 01/02/2025 5:40 PM CDT [facility] RBC/HPF 5 <6 /HPF 01/02/2025 5:40 PM CDT [facility] BACTERIA (U) RARE(A) NONE /HPF 01/02/2025 5:40 PM CDT [facility] SQUAMOUS EPITHELIALS RARE /HPF 01/02/2025 5:40 PM CDT [facility] URINE SPECIMEN OBTAINED BY CLEAN CATCH PROCEDURE / Unknown 01/02/2025 4:34 PM CDT us Constanza Helms CANOE INSPECTOR FINAL URINE ORDERABLES Final Result [facility] [address] [place] [address], * ECG 12 lead (01/02/2025 3:39 PM CDT) 01/02/2025 3:39 PM CDT Narrative [facility] - 01/02/2025 4:[address] 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 [address] Test Date: 2025-01-02 Pat Name: [facility] Department: 41 Room: Gender: Female Side Stitching Machine Operator: [id number] : 1965 Requested By: CONSTANZA HELMS Order Number: [id number] Reading MD: Anibal Holly Measurements Intervals [place] Rate: 64 P: 52 NE: 169 QRS: 14 QRSD: 89 T: 26 QT: 410 QTc: 425 Interpretive Statements SINUS RHYTHM Compared to ECG 03/20/2019 12:09:38 T-wave abnormality no longer present Possible ischemia no longer present us Constanza Helms CANOE INSPECTOR FINAL ECG ORDERABLES Final Result [facility] ([facility]) RAD * CT HEAD WO CON (01/02/2025 3:21 PM CDT) Anatomical Region Laterality Modality Head Computed Tomogra phy 01/02/2025 4:04 PM CDT Impressions 01/02/2025 4:12 PM CDT IMPRESSION: Normal noncontrast head CT. Referred By: Interpreted By: David Bray MD, 01/02/2025 4:04 PM Narrative 01/02/2025 4:12 PM [address] [address] EXAM: CT HEAD WO CON DATE: 01/02/2025 [...] Procedure Note David Bray MD - 01/02/[address] [address] EXAM: CT HEAD WO CON DATE: 01/02/2025 [...] David Bray MD, 01/02/2025 4:04 PM Constanza Helsm CANOE INSPECTOR FINAL CT Final Result * TSH W/REFLEX (01/02/2025 2:46 PM CDT) TSH 2.030 0.358 - 3.74 uIU/ML 01/02/2025 5:40 PM CDT [facility] Comment: HIGH DOSES OF BIOTIN MAY INTERFERE WITH THIS TEST RESULT. CORRELATION TO CLINICAL HISTORY AND PRESENTATION RECOMMENDED. FREE T4 NOT INDICATED 01/02/2025 2:46 PM CDT Ruth Salgado APRN LABORATORY Final Resul t Performing Organization Address [facility] Co de Phone Number [facility] [address] [place] [address], * (ABNORMAL) AMMONIA (01/02/2025 2:46 PM CDT) AMMONIA 40(H) 11 - 32 UMOL/L 01/02/2025 5:40 PM CDT [facility] 01/02/2025 2:46 PM CDT Ruth Salgado APRN LABORATORY Final Resul t Performing Organization Address City/[facility]/ZIP Co de Phone Number [facility] [address] [place] [address], [place] [phone] * LIPASE (01/02/2025 2:46 PM CDT) LIPASE 27 13 - 75 UNITS/L 01/02/2025 5:40 PM CDT [facility] 01/02/2025 2:46 PM CDT Ruth Salgado OCCUPATIONAL THERAPY CO DIRECTOR LABORATORY Final Resul t [facility] [address] [place] [address], [place] [phone] * PROLACTIN (01/02/2025 2:46 PM CDT) PROLACTIN 6.1 NG/ML 01/02/2025 6:27 PM CDT [facility] Comment:FEMALE REFERENCE RAN GE (NON-): 4.8-23.3 01/02/2025 2:46 PM CDT Ruth Salgado OCCUPATIONAL THERAPY CO DIRECTOR LABORATORY Final Resul t Performing Organization Address City/[facility] Co de Phone Number [facility] [address] [place] [address], [place] [phone] * CK (CPK) (01/02/2025 2:46 PM CDT) CPK 131 21 - 215 U/L 01/02/2025 5:40 PM CDT [facility] 01/02/2025 2:46 PM CDT Ruth Salgado OCCUPATIONAL THERAPY CO DIRECTOR LABORATORY Final Resul t [facility] [address] [place] [address], [place] [phone] from Last 3 Months Insurance [employer] Advance Directives * Full Code (Latest Code Status on File) Date Activated Date Inactivated Comments 01/02/2025 5:48 PM 01/06/2025 12:55 PM Care Teams Switch Operator Relationship Specialty Start Date End Date Mandie Schaefer NP [address] [place] [address] PCP - General FAMILY PRACTICE 01/02/25 Tonia Mcrae MD [address] [place] [address] Consulting Physician NEUROLOGY 01/10/25
--- OUTSIDE RECORDS SUMMARY | 2025-01-19 06:10 | XMS_ITS | Clinical Summary ---
Author Organization [facility] Address [address] [place] [address] Care Team Providers Care Dance Historian Name Role Phone Warren Cowan MD Primary Care Provider + Source Comments [facility],non-owned Affiliates and Associated Physician Practices is amultiple site organization consisting of ambulatory clinics and hospital sitesin [place], [place], [place] and [place]. This disclosure is being madepursuant to the Care Everywhere program and may not contain all information available regarding this patient. Last updated 18.[facility] Allergies No known active allergies Medications * [...] to complete this topic Insurance [employer] MEDICARE [facility] MEDICARE SELF PAY NO INSURANCE Member Subscriber Plan / Payer (Ef fective for All Dates) Name:Abiodun Buchanan Member ID:Not on file Relation to Subscriber:Not on file Name:ABIODUN BUCHANAN Subscriber ID:Not on file (Home) Address: [address] [place] [id number] Payer ID:Not on file Group ID:Not on file Type:Self Pay Address: [place], [place] Advance Directives * Full Code (Latest Code Status on File) Date Activated Date Inactivated Comments 02/23/2016 11:33 AM 02/23/2016 7:30 PM Care Teams Dance Historian Relationship Specialty Start Date End Date Warren Cowan MD [address] [place] [address] PCP - General Family Medicine 02/20/16
--- OUTSIDE RECORDS SUMMARY | 2025-01-19 06:10 | XMS_ITS | Encounter Summary ---
Author Organization [facility] Address [facility] [place] [address] Care Team Providers Care Aviation Safety Officer Name Role Phone Warren Cowan MD Primary Care Provider + [phone] Mandie Schaefer NP Primary Care Provider [phone] Tonia Mcrae MD Unavailable +[phone] Encounter Details Date Type Department Care Team (Late st Contact Info) Description 12/09/2018 Abstract SFL CONVERSION [address] [place] [address] , Generic ConversionMD Social History Tobacco Use Types Packs/Day [...] on filedocumented in this encounter Care Teams Aviation Safety Officer Relationship Specialty Start Date End Date Warren Cowan MD [address] [address] PCP - General FAMILY PRACTICE 02/27/19 01/01/25 Mandie Schaefer NP [address] [place] [address] PCP - General FAMILY PRACTICE 01/02/25 Tonia Mcrae MD [address] [place] [address] Consulting Physician NEUROLOGY 01/10/25 documented as of this encounter
--- OUTSIDE RECORDS SUMMARY | 2025-01-19 06:10 | XMS_ITS | Encounter Summary ---
Author Organization [facility] Address [address] [place] [address] Care Team Providers Care Bistro Attendant Name Role Phone Mandie Schaefer NP Primary Care Provider [phone] Tonia Mcrae MD Unavailable [phone] Encounter Details Date Type Department Care Team (Late st Contact Info) Description 01/17/2025 Prep for Procedure [facility] [place], [place] [id number] Jose Juan Mi MD [address] [facility] [address] [place], [place] [id number] Social History Tobacco Use Types Packs/Day Years Used Date Smoking Tobacco: Former Cigarettes Q uit: 02/27/2009 Smokeless Tobacco: Never Alcohol Use Standard Drinks/Week Comments No 0 (1 standard drink = 0.6 oz pur e alcohol) [facility] Utilities Answer Date Recorded In the past 12 months has e electric, gas, oil, or water [employer] threatened to shut off services in your [...] any time in the past 12 m [facility], were you homeless or living in a halfway (including now)? No 01/02/2025 Comments No Sex [...] PM CDT Eduarda Hilton RN Active * Calculated C-SSRS Risk Score (Lifetime/Recent) Answer Date of Assessment Author Status No Risk Indicated 01/17/2025 9:22 AM CDT Luc Ortiz RN Active * [place] Suicide Severity Rating Scale (Screener/Recent Self-Report) Question Answer Date of Assessment Author Status 1. Wish to be (Past 1 Month) No 01/17/2025 9:22 AM RYANT Kolby Ortiz RN Active 2. Non-Specific Active Suicidal Thoughts (Past 1 Month) No 01/17/2025 9:22 AM Kolby Barcenas RN Active 6. Suicidal Behavior (Lifetime) No 01/17/2025 9:22 AM Kolby Barcenas RN Active documented as of this encounter Mental Status * Because of a physical, mental, or emotional condition, do you have serious difficulty concentrating, remembering, or making decisions? Answer Entry Date Author Status Yes 01/02/2025 8:49 PM CDT Eduarda Hilton RN Active documented in this encounter Plan of Treatment Not on file documented as of this encounter Goals Goal Patient Goal Type Associated Problems Recent Progress Patient-Stated? 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, GERIATRICIAN documented as of this encounter Results * URINE BACTERIA CULTURE (01/11/2025 2:11 PM CDT) SPEC DESCRIPTION URINE CLEAN CATCH 01/11/2025 2:11 PM CDT [facility] SPECIAL REQUESTS NO SPECIAL REQUEST 01/11/2025 2:11 PM CDT [facility] CULTURE RESULT NO GROWTH 2 DAYS 01/13/2025 8:17 AM CDT [facility] URINE SPECIMEN OBTAINED BY CLEAN CATCH PROCEDURE / Unknown 01/11/2025 2:11 PM CDT 01/11/2025 2:21 PM CDT us Isai Stanton MD MICROBIOLOGY - GENERAL ORDERABL ES Final Result [facility] [address] [place] [address], documented in this encounter Visit Diagnoses Diagnosis Calculus of ureter- Primary documented in this encounter Care Teams Bistro Attendant Relationship Specialty Start Date End Date Mandie Schaefer NP [address] [place] [address] PCP - General FAMILY PRACTICE 01/02/25 Tonia Mcrae MD [address] [place] [address] Consulting Physician NEUROLOGY 01/10/25 documented as of this encounter
--- OUTSIDE RECORDS SUMMARY | 2025-01-19 06:10 | XMS_ITS | Clinical Summary ---
Author Organization [facility] Sumaya Weller Address [address] [place] [address] Care Team Providers Care Chart Computer Name Role Phone Warren Cowan MD Primary Care Provider [phone] Allergies No known active allergies Medications levETIRAcetam [...] mouth. Activ e naloxone (NARCAN) 4 mg/spray [place], Non-Aerosol EMERGENCY USE ONLY: Administer 1 spray [...] Comments Blood Pressure 102/64 06/18/2024 10:55 AM ELECTRIC WIRER Pulse 55 06/18/2024 10:55 AM ELECTRIC WIRER Temperature 36.5 C (97.7 F) 06/18/2024 10:55 AM ELECTRIC WIRER Respiratory Rate 15 06/18/2024 10:5 5 AM ELECTRIC WIRER Oxygen Saturation 97% 06/18/2024 10: 55 AM ELECTRIC WIRER Inhaled Oxygen Concentration - - Weight 100.3 kg (221 lb 3.2 oz) 024 10:55 AM ELECTRIC WIRER Height 157.5 cm (5' 2) 11/03/2021 3:41 PM CDT Body Mass Index 40.46 11/03/2021 3:41 PM CDT Plan of Treatment Upcoming Encounters Date Type Department Care Team (Late st Contact Info) Description 06/18/2025 10:00 AM ELECTRIC WIRER Office Visit [facility] Oncology and Hematology - [place] [address] [facility] [address] [place] [address] Aki Guido MD [address] [facility] [address] [place] [address] Health Maintenance Due Date Last [...] 2) 2015 INFLUENZA VACCINE (#1) 2025 Insurance [facility] Address: [address] [place] [address] Care Teams Chart Computer Relationship Specialty Start Date End Date Warren Cowan MD PCP - General Family Practice 11/01/19
--- OUTSIDE RECORDS SUMMARY | 2025-01-19 06:10 | XMS_ITS | Encounter Summary ---
Author Organization [facility] Address [address] [facility] [address] [place] [address] Care Team Providers Care Universal Branch Consultant Name Role Phone Warren Cowan MD Primary Care Prov ider Warren Cowan MD Primary Care Prov ider Encounter Details Date Type Department Care Team (Late st Contact Info) Description 07/29/2016 Orders Only [facility] ProviderRavi MD [address] [place] [address] Social History Tobacco Use Types Packs/Day Years Used Date Smoking Tobacco: Former Alcohol Use Standard Drinks/Week Comments No 0 (1 standard drink = 0.6 oz pur e alcohol) Comments Unknown Sex and Gender Information Value Date Recorded Sex Assigned at Not on file Legal Sex Female 3:44 AM FIELD SUPERVISOR Gender Identity Not on file Sexual [...] on filedocumented in this encounter Care Teams Universal Branch Consultant Relationship Specialty Start Date End Date Warren Cowan MD [address] [place] [address] PCP - General 10/01/16 Warren Cowan MD [address] [place] [address] PCP - General 06/26/15 09/30/16 documented as of this encounter
--- OUTSIDE RECORDS SUMMARY | 2025-01-19 06:10 | XMS_ITS | Encounter Summary ---
Author Organization [facility] Address [address] [facility] [address] [place] [address] Care Team Providers Care Green Coffee Blender Name Role Phone Warren Cowan MD Primary Care Prov ider Warren Cowan MD Primary Care Prov ider Encounter Details Date Type Department Care Team (Late st Contact Info) Description 06/17/2016 Orders Only [facility] ProviderRavi MD [address] [place] [address] Social History Tobacco Use Types Packs/Day Years Used Date Smoking Tobacco: Former Alcohol Use Standard Drinks/Week Comments No 0 (1 standard drink = 0.6 oz pur e alcohol) Comments Unknown Sex and Gender Information Value Date Recorded Sex Assigned at Not on file Legal Sex Female 3:44 AM EMERGENCY MEDICAL SERVICES COORDINATOR Gender Identity Not on file Sexual [...] on filedocumented in this encounter Care Teams Green Coffee Blender Relationship Specialty Start Date End Date Warren Cowan MD [address] [place] [address] PCP - General 10/01/16 Warren Cowan MD [address] [place] [address] PCP - General 06/26/15 09/30/16 documented as of this encounter
--- OUTSIDE RECORDS SUMMARY | 2025-01-19 06:10 | XMS_ITS | Referral Summary ---
Author Organization [facility] [address] Address [address] [place] [address] Care Team Providers Care Web Site Developer Name Role Phone Warren Cowan MD [...] implantable loop record er 08/04/2015 Overview (02/18/2017): Aloqatronic reveal implantable loop recorder Dx; Syncope. DOI [...] on file Legal Sex Female 3:44 AM RN MIDWIFE Gender Identity Not on file Sexual Orientation Not on file Last Filed Vital Signs Vital Sign Reading Time Taken Comments Blood Pressure 126/76 08/28/2019 2:17 PM RN MIDWIFE Pulse 64 08/28/2019 2:17 PM RN MIDWIFE Temperature - - Respiratory Rate 16 03/09/2017 2:37 PM CDT Oxygen Saturation 96% 08/28/2019 2:17 PM RN MIDWIFE Inhaled Oxygen Concentration - - Weight 96.6 kg (213 lb) 08/28/2019 2:17 PM RN MIDWIFE Height 165.1 cm (5' 5) 08/28/2019 2:17 PM RN MIDWIFE Body Mass Index 35.45 08/28/2019 2:17 PM RN MIDWIFE Plan of Treatment Not on file Medical Devices Implanted Type Area Aviation All Source Intelligence Device Identifier Shelf Expiration Date Model / Serial / Lot Implantable Loop Recorder Implantable Loop Recorder Chest [employer] Insurance Care Teams Web Site Developer Relationship Specialty Start Date End Date Warren Cowan MD [address] [place] [address] PCP - General 10/01/16
--- OUTSIDE RECORDS SUMMARY | 2025-01-19 06:10 | XMS_ITS | Encounter Summary ---
Author Organization [facility] Address [address] [facility] [address] [place] [address] Care Team Providers Care Senior Manufacturing Test Engineer Name Role Phone Warren Cowan MD Primary Care Prov ider Warren Cowan MD Primary Care Prov ider Encounter Details Date Type Department Care Team (Late st Contact Info) Description 09/12/2016 Orders Only [facility] ProviderRavi MD [address] [place] [address] Social History Tobacco Use Types Packs/Day Years Used Date Smoking Tobacco: Former Alcohol Use Standard Drinks/Week Comments No 0 (1 standard drink = 0.6 oz pur e alcohol) Comments Unknown Sex and Gender Information Value Date Recorded Sex Assigned at Not on file Legal Sex Female 3:44 AM EXPLOSION WELDER Gender Identity Not on file Sexual Orientation [...] filedocumented in this encounter Care Teams Senior Manufacturing Test Engineer Relationship Specialty Start Date End Date Warren Cowan MD [address] [place] [address] PCP - General 10/01/16 Warren Cowan MD [address] [place] [address] PCP - General 06/26/15 09/30/16 documented as of this encounter
--- OUTSIDE RECORDS SUMMARY | 2025-01-19 06:10 | XMS_ITS | Encounter Summary ---
Author Organization [facility] Address [facility] [place] [address] Care Team Providers Care Supervisor Blast Furnace Name Role Phone Mandie Schaefer NP Primary Care Provider + [phone] Tonia Mcrae MD Unavailable [phone] Reason for Visit * Reason Onset Date Comments Results 01/15/2025 Encounter Details Date Type Department Care Team (Latest Contact Info) Description 01/15/2025 Results [facility] 3rd Floor [address] [place], [place] [id number] Jacque Bustamante RN COMPREHENSIVE METABOLIC PANEL, CBC W/DIFF AUTOMATED Social History Tobacco Use Types Packs/Day Years Used Date Smoking Tobacco: Former Cigarettes Q uit: 02/27/2009 Smokeless Tobacco: Never Alcohol Use Standard Drinks/Week Comments No 0 (1 standard drink = 0.6 oz pur e alcohol) [facility] Utilities Answer Date Recorded In the past 12 months has [facility] [employer], gas, oil, or water [employer] threatened to shut off services in your [...] any time in the past 12 m [facility], were you homeless or living in a fpc (including now)? No 01/02/2025 Comments No Sex [...] Status No 01/02/2025 8:49 PM CDT Eduarda Hilton, RN Active * Are you blind or [...] Status No Risk Indicated 01/17/2025 9:22 AM Luc Barcenas RN Active * [place] Suicide Severity Rating Scale (Screener/Recent Self-Report) Question Answer Date of Assessment Author Status 1. Wish to be (Past 1 Month) No 01/17/2025 9:22 AM Kolby Barcenas RN Active 2. Non-Specific Active Suicidal Thoughts [...] Hilton RN Active documented in this encounter Progress Notes * Jacque Bustamante RN - 01/15/2025 2:43 PM CDT Attempted to reach [facility] Mandie Schaefer's office (listed as pt's PCP) to confirm pt is a pt there and have labs faxed there. * Jacque Bustamante RN - 01/15/2025 2:42 PM CDT ----- Message from Digna Maloney sent at 01/14/2025 2:49 PM CDT ----- Please send this to patient's primary care provider and confirm that PRIMARY CARE PROVIDER has received and is addressing. ----- Message ----- From: User, [id number] Sent: 01/11/2025 2:30 PM CDT To: Digna Maloney PA-C documented in this encounter Plan of Treatment Not on file documented as of this encounter Goals Goal Patient Goal Type Associated Problems Recent Progress Patient-Stated? 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, MANAGER SMALL BUSINESS documented as of this encounter Visit Diagnoses Not on filedocumented in this encounter Care Teams Supervisor Blast Furnace Relationship Specialty Start Date End Date Mandie Schaefer NP [address] [place] [address] PCP - General FAMILY PRACTICE 01/02/25 Tonia Mcrae MD [address] [place] [address] Consulting Physician NEUROLOGY 01/10/25 documented as of this encounter
--- OUTSIDE RECORDS SUMMARY | 2025-01-19 06:10 | XMS_ITS | Clinical Summary ---
Author Organization [facility] [address] Address [address] [place] [address] Care Team Providers Care Front Desk Lead Name Role Phone Warren Cowan MD Primary [...] implantable loop record er 08/04/2015 Overview (02/18/2017): [employer] reveal implantable loop recorder Dx; Syncope. DOI [...] Date Comments Lupus erythematosus Lupus; Comme nts: [facility] 03/04/2015 - Multiple sclerosis (HCC) MS; Com ments: [facility] 03/04/2015 - Family History Medical History Relation [...] on file Legal Sex Female 3:44 AM THEATRE PROFESSOR Gender Identity Not on file Sexual Orientation Not on file Obstetrics History Last Filed Vital Signs Vital Sign Reading Time Taken Comments Blood Pressure 126/76 08/28/2019 2:17 PM THEATRE PROFESSOR Pulse 64 08/28/2019 2:17 PM THEATRE PROFESSOR Temperature - - Respiratory Rate 16 03/09/2017 2:37 PM CDT Oxygen Saturation 96% 08/28/2019 2:17 PM THEATRE PROFESSOR Inhaled Oxygen Concentration - - Weight 96.6 kg (213 lb) 08/28/2019 2:17 PM THEATRE PROFESSOR Height 165.1 cm (5' 5) 08/28/2019 2:17 PM THEATRE PROFESSOR Body Mass Index 35.45 08/28/2019 2:17 PM THEATRE PROFESSOR Plan of Treatment Not on file Medical Devices Implanted Type Area Cabinet Assembler Device Identifier Shelf Expiration Date Model / Serial / Lot Implantable Loop Recorder Implantable Loop Recorder Chest [employer] Insurance Care Teams Front Desk Lead Relationship Specialty Start Date End Date Warren Cowan MD [address] [place] [address] PCP - General 10/01/16
[2025-01-19] MEDS: SODIUM CHLORIDE 0.9% IV 1,000 ML 999 ML IV CONT ×2 (06:13)
[2025-01-19 06:16] LABS: Hematocrit 37.4 % (37.0-47.0); Hemoglobin 12.5 g/dL (12.0-15.0); Immature Granulocyte Percent A 1.2 % (0-0.5); Immature Platelet Fraction Pct 8.6 % (0.9-11.2); Lymphocytes Absolute Auto 0.43 K/mm3 (0.9-3.2); Mean Corpuscular HGB Conc 33.4 g/dl (32-36); Mean Corpuscular Hemoglobin 34.3 pg (26-34); Mean Corpuscular Volume 102.7 fl (80-100); Nucleated Red Blood Cells Absolute Auto 0.040 K/mm3 (0.0-0.012); Nucleated Red Blood Cells Perc 1.0 % (0.0-0.2); Platelet Count Result 77 k/mm3 (150-375); Red Blood Count 3.64 M/mm3 (4.2-5.4); White Blood Count 4.1 K/mm3 (4.5-10.0)
[2025-01-19] MEDS: ACETAMINOPHEN 500 MG TABLET 1000 MG PO (06:16)
[2025-01-19] MEDS: CEFEPIME 2 GM in SODIUM CHLORIDE 0.9% IV 50 ML 100 ML IVPB (06:31)
[2025-01-19] MEDS: SODIUM CHLORIDE 0.9% IV 500 ML 999 ML IV CONT (06:31)
[2025-01-19 06:34] LABS: INR 1.2; Prothrombin Time 15.2 Seconds (11.1-14.7)
[2025-01-19 06:35] LABS: Partial Thromboplastin Time 24.4 Seconds (22.3-36.8)
[2025-01-19 06:50] LABS: Add Urine Microscopic? YES; Appearance Urine Clear (Clear); Glucose Urine UA Negative (Negative); Leukocyte Esterase Ur Trace LEU/UL (Negative); Nitrate Urine Positive (Negative); Non Pathogenic Casts 0-2; Specific Grav Ur 1.012 (1.001-1.035)
[2025-01-19 06:55] LABS: Macrocytosis 1+ (NORMAL); Schistocytes None Seen
[2025-01-19] MEDS: NOREPINEPHRINE 8 MG/D5W 250 ML 8 MG/250 ML BAG 9.38 MG IV CONT (07:50)
[2025-01-19] MEDS: LACTATED RINGERS 1,000 ML 999 ML IV CONT (09:38)
[2025-01-19 09:55] LABS: Alanine Aminotransferase 65 U/L (6-35); Albumin Level 2.8 g/dL (3.5-5.1); Alkaline Phosphatase 136 U/L (38-126); Anion Gap 13 mmol/L (4-12); Aspartate Amino Transferase 80 U/L (14-36); Bilirubin,Total 0.8 mg/dL (0.2-1.3); Blood Urea Nitrogen 20 mg/dL (7-17); CRP 4.9 mg/dL (<1.0); Calcium 7.6 mg/dL (8.4-10.2); Carbon Dioxide 20 mmol/L (22-30); Chloride 104 mmol/L (98-107); Estimated CRCL calculation 44 ml/min; Estimated Glomerular Filt Rate 39; Glucose 177 mg/dL (65-110); Sodium 137 mmol/L (137-145); Total Protein 4.9 g/dL (6.3-8.2)
[2025-01-19 09:56] LABS: Potassium 2.4 mmol/L (3.4-5.0)
[2025-01-19 10:02] LABS: Alveolar/Arterial O2 Gradient 90.0 mmHg; Fractional Inspired Oxygen 28 %; HCO3 ABG 17.9 mEq/l (22.0-26.0); Oxygen Content ABG 14.9 %vol (16.0-22.0); Oxygen Saturation ABG 96.5 % (95.0-100.0); PCO2 ABG 25.8 mmHg (35.0-45.0); PO2 ABG 79.2 mmHg (80.0-100.0); PO2 FiO2 Ratio Arterial Blood 2.83 %
[2025-01-19 10:03] LABS: Liters per Minute 2.0 LPM; Modified Allen's Test Pass; Site Drawn LEFT RADIAL
[2025-01-19] MEDS: MEROPENEM 1 GM in SODIUM CHLORIDE 0.9% IV 100 ML 200 ML IVPB ×2 (10:06→17:00)
[2025-01-19] MEDS: POTASSIUM CHLORIDE INJ 40 MEQ in SODIUM CHLORIDE 0.9% IV 500 ML 130 MEQ IVPB (10:28)
--- NOTE | 2025-01-19 10:30 | WPDCNINT ---
Assessment and Plan Assessment and plan (1) Septic shock: Code(s): A41.9 - Sepsis, unspecified organism; R65.21 - Severe sepsis with septic shock Status: Acute Assessment and Plan: Septic shock secondary to UTI with obstructing right ureteral stone and hydronephrosis CT scan of abdomen pelvis done but report pending Patient is going to go to OR for stent placement IV fluid bolus given IV fluids maintain its will be continue Albumin 25% Patient is on high-dose Levophed. I will add vasopressin infusion and stress dose hydrocortisone as patient is chronically on low-dose steroid I will also give calcium gluconate Potassium replacement as below Maintain map> 65 Empiric vancomycin and meropenem (2) Calculus of proximal right ureter: Code(s): N20.1 - Calculus of ureter Status: Acute (3) Seizures: Code(s): R56.9 - Unspecified convulsions Status: Acute Assessment and Plan: Continue Keppra (4) COPD (chronic obstructive pulmonary disease): Code(s): J44.9 - Chronic obstructive pulmonary disease, unspecified Status: Chronic Assessment and Plan: DuoNeb (5) Thrombocytopenia: Code(s): D69.6 - Thrombocytopenia, unspecified Status: Acute Assessment and Plan: Likely secondary to sepsis, hold aspirin and Lovenox (6) SEVERO (acute kidney injury): Code(s): N17.9 - Acute kidney failure, unspecified Status: Acute Assessment and Plan: Likely secondary to sepsis and hypotension along with the ureteral stone IV fluids Monitor urine output electrolytes and creatinine Management of electrolyte abnormalities as below (7) Metabolic acidosis: Code(s): E87.20 - Acidosis, unspecified Status: Acute Assessment and Plan: Supportive treatment at this time Hold bicarb (8) Electrolyte abnormality: Code(s): E87.8 - Other disorders of electrolyte and fluid balance, not elsewhere classified Status: Acute Assessment and Plan: Potassium replacement ordered. Repeat BMP ordered Calcium gluconate ordered (9) Type 2 diabetes mellitus: Qualifiers: Diabetes mellitus medical equipment repairer insulin use: without medical equipment repairer use Diabetes mellitus complication status: with hyperglycemia Qualified Code(s): E11.65 - Type 2 diabetes mellitus with hyperglycemia Code(s): E11.9 - Type 2 diabetes mellitus without complications Status: Acute Assessment and Plan: Sliding scale insulin NPO Plan DVT prophylaxis -SCD Stress ulcer prophylaxis -PPI Nutrition - NPO Code Status - Full Code I spoke to and updated patient and her at bedside. I answered all their questions. Total Critical Care Time - 40 minutes Due to a high probability of clinically significant, life threatening deterioration, the patient required my highest level of preparedness to intervene emergently and I personally spent this critical care time directly and personally managing the patient. This critical care time included obtaining a history; examining the patient; pulse oximetry; ordering and review of studies; arranging urgent treatment with development of a management plan; evaluation of patient's response to treatment; frequent reassessment; and discussions with other providers. It was exclusive of separately billable procedures and treating other patients and teaching time. Please see Assessment and Plan section and the rest of the note for further information on patient assessment and treatment [employer] Consult Note Consult date: 01/19/25 Reason for consult: Septic shock HPI: Allie Buchanan is a 59 year old female with past medical history of type 2 diabetes, SEVERO, ureteral stone status post stent placement and then removal of pulse stone and stent, seizure disorder, COPD, SLE, obesity, multiple sclerosis presented to ER with fever. She was hospitalized at [facility] from 01/02-01/07 for encephalopathy and was diagnosed with new onset type 2 diabetes and also had acute kidney injury with ureteral stone. A stent was placed in right ureter on 01/03 with plan for outpatient follow-up. She was treated with antibiotics for 14 days. She had a cystoscopy with extraction of stone on the right side and removal of prior to ureteral stent on 01/[address] [facility] . Workup in the ER showed patient to be hypotensive and febrile. She was tachycardic. She was drowsy but arousable and able to follow commands and answer questions.. Most history was obtained from patient's he states the patient was not feeling well yesterday but last night around 330 she was having high-grade fever and was feeling sick hence he called EMS. She denies any dysuria hematuria hematochezia. No abdominal pain nausea vomiting dizziness lightheadedness or loss of consciousness. No chest pain, shortness a breath, cough or abdominal pain, review of system was positive for restless legs and neuropathy. All other systems were reviewed and were negative Workup in the ER showed WBC 4.1, platelet count 77K, creatinine 1.38 lactic 5.2 which increased to 6.2, calcium 7.6 CO2 20, UA consistent with UTI Head CT was negative Abdomen pelvis CT was done but report is pending She was given IV fluid bolus and started on IV fluids and antibiotics. Central venous catheter was placed and patient was started on Levophed infusion. Patient was taken to OR Patient now admitted to ICU for further evaluation management Review of Systems Review of Systems: All systems reviewed & are unremarkable except as noted in HPI and below (HPI) [facility] Past Medical History Medical History (Updated 01/19/25 @ 11:11 by Sukhwinder Tyler MD) Calculus of proximal right ureter Urinary tract infection GERD (gastroesophageal reflux disease) Hepatic steatosis COPD (chronic obstructive pulmonary disease) pulmonary function test 05/09/2019 Sjogrens syndrome Aortic atherosclerosis SLE (systemic lupus erythematosus) Multiple sclerosis Obesity Surgical History Surgical History History of carpal tunnel surgery of left wrist History of cholecystectomy History of total hysterectomy Hx of cystoscopy Family History Family History Father Diabetes mellitus History of multiple strokes Pacemaker Hypertension Liver cancer Heart problem Mother Hypertension History of multiple strokes Diabetes mellitus Other Alzheimer disease Bladder cancer Heart disease Hypothyroid Social History Social History Smoking packs per day: 0.5 Smoking cigarettes per day: 10.0 Years smoked: 5 Smoking pack-years: 2.50 Smoking status: Former smoker Tobacco type: cigarettes Second hand tobacco smoke exposure: No Smoking end date: 07/04/90 Alcohol intake: never Substance use: never Substance use type: does not use Do You Feel Safe in your Home?: Yes Lack of Transportation: No Lack of Food: Never True Current Housing: I Have Housing Concerned About Future Housing: No Difficulty Paying Gas/Electric Bills: No Difficulty Paying for Meds: No Currently Unemployed: No Education: Associate Degree Difficulty w/ Childcare or Family Care: No Living arrangements: with family Occupation/Education: retired Gender identity (if verbalized by the patient): Female Sexual Orientation (if Verbalized by the Patient): Straight or Heterosexual Spiritual care concerns: No Agree to blood products: Yes Meds Home Medications and Allergies Home Medications ?Medication ?Instructions ?Recorded ?Confirmed ?Type aspirin 81 mg tablet 81 mg PO DAILY 10/06/20 01/19/25 History atorvastatin 40 mg tablet 40 mg PO QHS #90 tabs 03/18/24 01/19/25 Rx levetiracetam 500 mg tablet See Rx Instructions .Route 05/24/24 01/19/25 Rx .COMPLEX #540 tabs ergocalciferol (vitamin D2) 1,250 50,000 unit PO MONTHLY #3 caps 09/27/24 01/19/25 Rx mcg (50,000 unit) capsule (Vitamin D2) folic acid 1 mg tablet 1 mg PO DAILY #90 tabs 09/27/24 01/19/25 Rx topiramate 25 mg tablet See Rx Instructions .Route 10/02/24 01/10/25 Rx .COMPLEX #90 tabs meclizine 25 mg tablet See Rx Instructions .Route 10/22/24 01/10/25 Rx .COMPLEX #100 tabs solifenacin 10 mg tablet 10 mg PO DAILY #90 tabs 10/25/24 01/19/25 Rx pregabalin 150 mg capsule 150 mg PO TID #90 caps 11/12/24 01/10/25 Rx methotrexate sodium 2.5 mg tablet See Rx Instructions .Route 11/22/24 01/10/25 Rx .COMPLEX #39 tabs pantoprazole 40 mg tablet,delayed See Rx Instructions .Route 11/27/24 01/10/25 Rx release .COMPLEX #180 tabs baclofen 20 mg tablet See Rx Instructions .Route 12/02/24 01/19/25 Rx .COMPLEX #90 tabs sucralfate 1 gram tablet 1 g PO Q6H #360 tabs 12/06/24 01/10/25 Rx blood sugar diagnostic (OneTouch #100 ea 01/09/25 01/10/25 Rx Verio test strips) cefpodoxime 200 mg tablet 400 mg PO BID 01/10/25 01/10/25 History furosemide 40 mg tablet 40 mg PO DAILY 01/10/25 01/19/25 History linezolid 600 mg tablet 600 mg PO Q12H 01/10/25 01/19/25 History methylprednisolone 4 mg tablet 4 mg PO QAM 01/10/25 01/10/25 History (Medrol) polyethylene glycol ea miscellaneous 01/10/25 01/10/25 History polyvinyl alcohol-povidone 0.5 1 drp EACH EYE QHS PRN 01/10/25 01/10/25 History %-0.6 % eye drops semaglutide 0.25 mg or 0.5 mg (2 0.5 mg (0.736 mL) subcut WEEKLY #3 01/10/25 01/19/25 Rx mg/3 mL) subcutaneous pen injector mL (Ozempic) tamsulosin 0.4 mg capsule 0.4 mg PO DAILY 01/10/25 01/10/25 History potassium chloride 10 mEq 10 meq PO DAILY #90 tabs 01/14/25 01/19/25 Rx tablet,extended release (Klor-Con) hydrocodone 10 mg-acetaminophen 0.5 tablet PO Q6H PRN pain #50 tabs 01/16/25 Rx 325 mg tablet lancets 30 gauge (Easy Comfort #100 ea 01/18/25 Rx Lancets) ropinirole 1 mg tablet 1 mg PO QHS #30 tabs 01/18/25 01/19/25 Rx Allergies Allergy/AdvReac Type Severity Reaction Status Date / Time Benzodiazepines AdvReac Intermediate Confusion Verified 01/10/25 12:52 Vital Signs Vital Signs - 24 hr 01/19/25 05:50 01/19/25 06:02 01/19/25 06:48 Temperature 39.4 C H Pulse Rate 120 H 111 H Respiratory Rate 29 H 28 H 25 H Blood Pressure 105/63 90/49 L Pulse Oximetry 95 92 Oxygen Delivery Room Air 01/19/25 07:15 01/19/25 07:16 01/19/25 07:18 Temperature Pulse Rate 108 H 107 H 108 H Respiratory Rate 25 H 24 H 25 H Blood Pressure 93/50 L 83/53 L 78/60 L Pulse Oximetry 94 94 92 Oxygen Delivery 01/19/25 07:19 01/19/25 07:31 01/19/25 07:45 Temperature Pulse Rate 109 H 108 H 116 H Respiratory Rate 24 H 22 H 21 H Blood Pressure 82/40 L 83/42 L Pulse Oximetry 92 92 94 Oxygen Delivery 01/19/25 07:46 01/19/25 07:50 01/19/25 07:50 Temperature 38.4 C H Pulse Rate 117 H 115 H Respiratory Rate 23 H Blood Pressure 75/34 L 75/34 L Pulse Oximetry 95 Oxygen Delivery 01/19/25 08:01 01/19/25 08:18 01/19/25 08:31 Temperature Pulse Rate 115 H 115 H 110 H Respiratory Rate 23 H 18 20 Blood Pressure 85/66 L 99/63 L 90/71 L Pulse Oximetry 99 98 Oxygen Delivery 01/19/25 09:00 01/19/25 09:30 01/19/25 09:35 Temperature Pulse Rate 110 H 103 H 102 H Respiratory Rate 24 H Blood Pressure 80/39 L 71/39 L 71/39 L Pulse Oximetry 98 Oxygen Delivery 01/19/25 09:38 01/19/25 10:10 01/19/25 10:28 Temperature 39.4 C H 39.3 C H Pulse Rate 100 97 96 Respiratory Rate 20 18 Blood Pressure 113/58 L 94/50 L 84/48 L Pulse Oximetry 100 99 Oxygen Delivery Exam Narrative: General: Pt is drowsy but easily arousable and answers questions and follows commands Lungs/Chest: Trachea central Clear BS B/L, No crackles or wheezing. Cardiac: RRR. Normal S1 S2. No murmurs Circulation: Pedal pulses are intact and symmetrical. Abdomen: Normal bowel sounds. Obese. Soft. NT. ND. Extremities: No clubbing, cyanosis or edema. Warm : Long in place Neurologic: Drowsy but easily arousable and answers questions and Follows commands. Moves all 4 extremities PERRL AO x3 Skin: No Rash Results Labs 01/19/25 06:08 01/19/25 07:43 Labs: Impressions Head CT 01/19/25 09:30 IMPRESSION: Cerebral atherosclerosis and chronic small vessel ischemic changes of the cerebral white matter No skull fracture or acute intracranial finding Short CBC 01/19/25 Range/Units 06:08 WBC 4.1 L (4.5-10.0) K/mm3 Hgb 12.5 (12.0-15.0) g/dL Hct 37.4 (37.0-47.0) % Plt Count 77 L (150-375) k/mm3 BMP 01/19/25 07:43 Sodium 137 Potassium 2.4 L* Chloride 104 Carbon Dioxide 20 L BUN 20 H Creatinine 1.38 H Glucose 177 H Calcium 7.6 L Liver Function 01/19/25 Range/Units 07:43 Total Bilirubin 0.8 (0.2-1.3) mg/dL AST 80 H (14-36) U/L ALT 65 H (6-35) U/L Alkaline Phosphatase 136 H (38-126) U/L Albumin 2.8 L (3.5-5.1) g/dL Urine 01/19/25 Range/Units 06:08 Urine Color Yellow (Yellow) Urine Appearance Clear (Clear) Urine pH 6.0 (5.0-9.0) Ur Specific [place] 1.012 (1.001-1.035) Urine Protein 1+ H (Negative) mg/dL Urine Glucose (UA) Negative (Negative) mg/dL Quality VTE Prophylaxis VTE prophylaxis: pharmacologic ordered Hospitalist MIPS Advance Care Plan I have confirmed that the patient's Advanced Care Plan is present, code status is documented, or surrogate decision maker is listed in patient medical record.: Yes Medication Reconciliation I have utilized all available resources to obtain, update and review the patients current medications (includes all prescriptions, OTC, herbals, cannabis, and nutritional supplements).: Yes
--- NOTE | 2025-01-19 11:09 | WPDURCON ---
Assessment and Plan Assessment and plan (1) Hydronephrosis, right: Code(s): N13.30 - Unspecified hydronephrosis Status: Acute (2) Septic shock: Code(s): A41.9 - Sepsis, unspecified organism; R65.21 - Severe sepsis with septic shock Status: Acute (3) Pyelonephritis: Code(s): N12 - Tubulo-interstitial nephritis, not specified as acute or chronic Status: Acute Assessment and Plan: Clinical picture consistent with septic shock due to obstructive right pyelonephritis. Right hydronephrosis without ureteral stone likely resulting from ureteral edema. Emergency cystoscopy with right ureteral stent placement and possible retrograde pyelography. Urology Consult Note HPI Date Seen: 01/19/25 Primary Care Provider: Mandie Schaefer APRN Consult Narrative Narrative: Allie Buchanan is a 59 year old female known to our practice after presenting to [facility] on 01/03 with an obstructing right proximal ureteral stone. On the days she underwent right ureteral stent placement. Just 2 days ago a right ureteral stent was removed after a successful stone extraction several days prior. She presents to the emergency department with change in mental status. Upon presentation she had a picture of septic shock and CT imaging shows right hydroureteronephrosis to the ureterovesical junction without obvious residual stone. Her did not document fever but she was febrile on presentation to the ER with a temp of 102?. Review of Systems Review of Systems: ROS unobtainable: Yes unobtainable due to mental status PMFSH Past Medical History Medical History (Updated 01/19/25 @ 11:11 by Sukhwinder Tyler MD) Calculus of proximal right ureter Urinary tract infection GERD (gastroesophageal reflux disease) Hepatic steatosis COPD (chronic obstructive pulmonary disease) pulmonary function test 05/09/2019 Sjogrens syndrome Aortic atherosclerosis SLE (systemic lupus erythematosus) Multiple sclerosis Obesity Surgical History Surgical History History of carpal tunnel surgery of left wrist History of cholecystectomy History of total hysterectomy Hx of cystoscopy Family History Family History Father Diabetes mellitus History of multiple strokes Pacemaker Hypertension Liver cancer Heart problem Mother Hypertension History of multiple strokes Diabetes mellitus Other Alzheimer disease Bladder cancer Heart disease Hypothyroid Social History Social History Smoking packs per day: 0.5 Smoking cigarettes per day: 10.0 Years smoked: 5 Smoking pack-years: 2.50 Smoking status: Former smoker Tobacco type: cigarettes Second hand tobacco smoke exposure: No Smoking end date: 07/04/90 Alcohol intake: never Substance use: never Substance use type: does not use Do You Feel Safe in your Home?: Yes Lack of Transportation: No Lack of Food: Never True Current Housing: I Have Housing Concerned About Future Housing: No Difficulty Paying Gas/Electric Bills: No Difficulty Paying for Meds: No Currently Unemployed: No Education: Associate Degree Difficulty w/ Childcare or Family Care: No Living arrangements: with family Occupation/Education: retired Gender identity (if verbalized by the patient): Female Sexual Orientation (if Verbalized by the Patient): Straight or Heterosexual Spiritual care concerns: No Agree to blood products: Yes Meds Home Medications and Allergies Home Medications ?Medication ?Instructions ?Recorded ?Confirmed ?Type aspirin 81 mg tablet 81 mg PO DAILY 10/06/20 01/19/25 History atorvastatin 40 mg tablet 40 mg PO QHS #90 tabs 03/18/24 01/19/25 Rx levetiracetam 500 mg tablet See Rx Instructions .Route 05/24/24 01/19/25 Rx .COMPLEX #540 tabs ergocalciferol (vitamin D2) 1,250 50,000 unit PO MONTHLY #3 caps 09/27/24 01/19/25 Rx mcg (50,000 unit) capsule (Vitamin D2) folic acid 1 mg tablet 1 mg PO DAILY #90 tabs 09/27/24 01/19/25 Rx topiramate 25 mg tablet See Rx Instructions .Route 10/02/24 01/10/25 Rx .COMPLEX #90 tabs meclizine 25 mg tablet See Rx Instructions .Route 10/22/24 01/10/25 Rx .COMPLEX #100 tabs solifenacin 10 mg tablet 10 mg PO DAILY #90 tabs 10/25/24 01/19/25 Rx pregabalin 150 mg capsule 150 mg PO TID #90 caps 11/12/24 01/10/25 Rx methotrexate sodium 2.5 mg tablet See Rx Instructions .Route 11/22/24 01/10/25 Rx .COMPLEX #39 tabs pantoprazole 40 mg tablet,delayed See Rx Instructions .Route 11/27/24 01/10/25 Rx release .COMPLEX #180 tabs baclofen 20 mg tablet See Rx Instructions .Route 12/02/24 01/19/25 Rx .COMPLEX #90 tabs sucralfate 1 gram tablet 1 g PO Q6H #360 tabs 12/06/24 01/10/25 Rx blood sugar diagnostic (OneTouch #100 ea 01/09/25 01/10/25 Rx Verio test strips) cefpodoxime 200 mg tablet 400 mg PO BID 01/10/25 01/10/25 History furosemide 40 mg tablet 40 mg PO DAILY 01/10/25 01/19/25 History linezolid 600 mg tablet 600 mg PO Q12H 01/10/25 01/19/25 History methylprednisolone 4 mg tablet 4 mg PO QAM 01/10/25 01/10/25 History (Medrol) polyethylene glycol ea miscellaneous 01/10/25 01/10/25 History polyvinyl alcohol-povidone 0.5 1 drp EACH EYE QHS PRN 01/10/25 01/10/25 History %-0.6 % eye drops semaglutide 0.25 mg or 0.5 mg (2 0.5 mg (0.736 mL) subcut WEEKLY #3 01/10/25 01/19/25 Rx mg/3 mL) subcutaneous pen injector mL (Ozempic) tamsulosin 0.4 mg capsule 0.4 mg PO DAILY 01/10/25 01/10/25 History potassium chloride 10 mEq 10 meq PO DAILY #90 tabs 01/14/25 01/19/25 Rx tablet,extended release (Klor-Con) hydrocodone 10 mg-acetaminophen 0.5 tablet PO Q6H PRN pain #50 tabs 01/16/25 Rx 325 mg tablet lancets 30 gauge (Easy Comfort #100 ea 01/18/25 Rx Lancets) ropinirole 1 mg tablet 1 mg PO QHS #30 tabs 01/18/25 01/19/25 Rx Allergies Allergy/AdvReac Type Severity Reaction Status Date / Time Benzodiazepines AdvReac Intermediate Confusion Verified 01/10/25 12:52 Vital Signs Vital Signs - 24 hr 01/19/25 05:50 01/19/25 06:02 01/19/25 06:48 Temperature 103 F H Pulse Rate 120 H 111 H Respiratory Rate 29 H 28 H 25 H Blood Pressure 105/63 90/49 L Pulse Oximetry 95 92 Oxygen Delivery Room Air 01/19/25 07:15 01/19/25 07:16 01/19/25 07:18 Temperature Pulse Rate 108 H 107 H 108 H Respiratory Rate 25 H 24 H 25 H Blood Pressure 93/50 L 83/53 L 78/60 L Pulse Oximetry 94 94 92 Oxygen Delivery 01/19/25 07:19 01/19/25 07:31 01/19/25 07:45 Temperature Pulse Rate 109 H 108 H 116 H Respiratory Rate 24 H 22 H 21 H Blood Pressure 82/40 L 83/42 L Pulse Oximetry 92 92 94 Oxygen Delivery 01/19/25 07:46 01/19/25 07:50 01/19/25 07:50 Temperature 101.1 F H Pulse Rate 117 H 115 H Respiratory Rate 23 H Blood Pressure 75/34 L 75/34 L Pulse Oximetry 95 Oxygen Delivery 01/19/25 08:01 01/19/25 08:18 01/19/25 08:31 Temperature Pulse Rate 115 H 115 H 110 H Respiratory Rate 23 H 18 20 Blood Pressure 85/66 L 99/63 L 90/71 L Pulse Oximetry 99 98 Oxygen Delivery 01/19/25 09:00 01/19/25 09:30 01/19/25 09:35 Temperature Pulse Rate 110 H 103 H 102 H Respiratory Rate 24 H Blood Pressure 80/39 L 71/39 L 71/39 L Pulse Oximetry 98 Oxygen Delivery 01/19/25 09:38 01/19/25 10:10 01/19/25 10:17 Temperature 102.9 F H 102.7 F H 102.5 F H Pulse Rate 100 97 96 Respiratory Rate 20 18 17 Blood Pressure 113/58 L 94/50 L 84/54 L Pulse Oximetry 100 99 100 Oxygen Delivery 01/19/25 10:27 01/19/25 10:28 01/19/25 10:28 Temperature 102.3 F H 102.3 F H Pulse Rate 100 96 96 Respiratory Rate 19 19 Blood Pressure 86/42 L 84/48 L 84/48 L Pulse Oximetry 99 Oxygen Delivery 01/19/25 10:31 01/19/25 10:36 Temperature 102.2 F H 102.1 F H Pulse Rate 96 95 Respiratory Rate 18 17 Blood Pressure 97/54 L 93/53 L Pulse Oximetry 100 100 Oxygen Delivery Exam Const: General: no acute distress Resp: Effort & Inspection: normal respiratory effort GI: Inspection: non-distended GI Palp: No abdominal tenderness and No Guarding due to palpation present (GI) Auscultation: normal bowel sounds Results Labs 01/19/25 06:08 01/19/25 07:43 Labs: Short CBC 01/19/25 Range/Units 06:08 WBC 4.1 L (4.5-10.0) K/mm3 Hgb 12.5 (12.0-15.0) g/dL Hct 37.4 (37.0-47.0) % Plt Count 77 L (150-375) k/mm3 BMP 01/19/25 07:43 Sodium 137 Potassium 2.4 L* Chloride 104 Carbon Dioxide 20 L BUN 20 H Creatinine 1.38 H Glucose 177 H Calcium 7.6 L Liver Function 01/19/25 Range/Units 07:43 Total Bilirubin 0.8 (0.2-1.3) mg/dL AST 80 H (14-36) U/L ALT 65 H (6-35) U/L Alkaline Phosphatase 136 H (38-126) U/L Albumin 2.8 L (3.5-5.1) g/dL Urine 01/19/25 Range/Units 06:08 Urine Color Yellow (Yellow) Urine Appearance Clear (Clear) Urine pH 6.0 (5.0-9.0) Ur Specific [place] 1.012 (1.001-1.035) Urine Protein 1+ H (Negative) mg/dL Urine Glucose (UA) Negative (Negative) mg/dL
--- NOTE | 2025-01-19 11:12 | WPDHPUPDATE1 ---
History and Physical Update Update Date/Time: 01/19/25 11:12 History and Physical has been reviewed, including an updated exam of the patient. There are NO changes in the patient's condition. Risks, benefits, and alternatives have been discussed and questions answered. Patient agrees to proceed with procedure.
[2025-01-19] MEDS: ALBUMIN HUMAN 25% 25 GM/100 ML 100 ML IVPB ×3 (11:29→23:00)
[2025-01-19 11:47] LABS: MRSA (PCR) NOT DETECTED (NOT DETECTE)
--- NOTE | 2025-01-19 12:11 | W.PM.PROC2 ---
Procedure Note - Detailed Date of Procedure 01/19/25 Pre-op Diagnosis Obstructive right pyelonephritis Post-op Diagnosis Same Procedure Performed Cystoscopy, right RPG, right stent placement Surgeon Sukhwinder Tyler MD Anesthesia General Description of Procedure The patient was brought to the operative suite where she was prepped and draped in a routine sterile fashion while in the dorsal lithotomy position after very mild systemic sedation. A 19 F rigid cystoscope was placed in her bladder and the bladder was circumferentially inspected. The bladder neck and urethra were endoscopically normal. The bladder mucosa was without hyperemia. There was no intravesical foreign body or neoplasm. There was a single orthotopic ureteral orifice bilaterally. I advanced .035 glidewire into the right renal pelvis under fluoroscopy. A Pollack catheter was used to perform a right RPG and outline proper stent placement.A 4.8F variable length ureteral stent was positioned with the proximal coil in the renal pelvis and the distal coil in the bladder. Scopes and wires were removed after emptying the patient's bladder. Drains No Pathology None sent
[2025-01-19] MEDS: VANCOMYCIN 1,250 MG/NS 250 ML 1,250 MG/250 ML BAG 166.67 MG IVPB ×2 (12:46→14:19)
[2025-01-19] MEDS: LACTATED RINGERS 1,000 ML 100 ML IV CONT ×2 (12:47→22:59)
--- NOTE | 2025-01-19 12:51 | ADMGEN ---
This patient, Allie Buchanan, was admitted to Intensive Care Unit-6 at 1221 from OR. Patient/family oriented to hospital policies and general routines including ID bracelet, bed and alarms, visiting hours, pain management, procedures, bathroom and other care routines, personal items, smoking policy, room service/diet, and visiting hours. Information on how to activate the Rapid Response Team has been discussed. Patient/Family are encouraged to report perceived risks to care and to ask questions if they do not understand what they are told or what they should do.
[2025-01-19] MEDS: CALCIUM GLUC 2,000 MG/NS 100ML 2,000 MG/100 ML BAG 100 MG IVPB (12:54)
[2025-01-19] MEDS: HYDROCORTISONE SODIUM SUCCINATE 100 MG/2 ML VIAL IV PUSH ×2 (13:15→20:01)
[2025-01-19] MEDS: PANTOPRAZOLE SODIUM IV 40 MG VIAL IV PUSH (13:19)
[2025-01-19] MEDS: KCL 40 MEQ/WATER 100 ML 100 ML 25 ML IVPB (14:25)
[2025-01-19] MEDS: VASOPRESSIN INJ 100 UNITS in DEXTROSE 5% 95 ML IV CONT (14:37)
[2025-01-19] MEDS: INSULIN ASPART (*BKC) 100 UNITS/ML SUB-Q (16:59)
[2025-01-19] MEDS: NOREPINEPHRINE 8 MG/D5W 250 ML 8 MG/250 ML BAG 11.25 MG IV CONT (17:14)
[2025-01-19 18:39] LABS: Alanine Aminotransferase 49 U/L (6-35); Albumin Level 3.3 g/dL (3.5-5.1); Alkaline Phosphatase 102 U/L (38-126); Anion Gap 9 mmol/L (4-12); Aspartate Amino Transferase 53 U/L (14-36); Bilirubin,Total 1.0 mg/dL (0.2-1.3); Blood Urea Nitrogen 13 mg/dL (7-17); Calcium 8.5 mg/dL (8.4-10.2); Carbon Dioxide 22 mmol/L (22-30); Chloride 112 mmol/L (98-107); Estimated CRCL calculation 61 ml/min; Estimated Glomerular Filt Rate 59; Glucose 215 mg/dL (65-110); Potassium 3.6 mmol/L (3.4-5.0); Sodium 143 mmol/L (137-145); Total Protein 5.3 g/dL (6.3-8.2)
[2025-01-19] MEDS: TOPIRAMATE 25 MG TABLET PO (20:02)
[2025-01-19] MEDS: KETOROLAC 30 MG/ML VIAL (*BKC) IV PUSH (20:02)
[2025-01-20] VITALS (18 sets, daily range): BP systolic 98–135; BP diastolic 61–97; PULSE 66–83; RESP 13–20; TEMP 36.4–37.2; O2SAT 91–100
[2025-01-20] MEDS: MEROPENEM 1 GM in SODIUM CHLORIDE 0.9% IV 100 ML 200 ML IVPB ×3 (01:26→18:23)
[2025-01-20] MEDS: HYDROCORTISONE SODIUM SUCCINATE 100 MG/2 ML VIAL IV PUSH ×2 (04:45→11:40)
[2025-01-20] MEDS: ALBUMIN HUMAN 25% 25 GM/100 ML 100 ML IVPB (05:01)
[2025-01-20 05:07] LABS: Hematocrit 27.7 % (37.0-47.0); Hemoglobin 9.0 g/dL (12.0-15.0); Immature Granulocyte Percent A 0.7 % (0-0.5); Immature Platelet Fraction Pct 11.1 % (0.9-11.2); Lymphocytes Absolute Auto 1.19 K/mm3 (0.9-3.2); Mean Corpuscular HGB Conc 32.5 g/dl (32-36); Mean Corpuscular Hemoglobin 34.1 pg (26-34); Mean Corpuscular Volume 104.9 fl (80-100); Nucleated Red Blood Cells Absolute Auto 0.000 K/mm3 (0.0-0.012); Nucleated Red Blood Cells Perc 0.0 % (0.0-0.2); Platelet Count Result 48 k/mm3 (150-375); Red Blood Count 2.64 M/mm3 (4.2-5.4); White Blood Count 10.6 K/mm3 (4.5-10.0)
[2025-01-20 05:29] LABS: Alanine Aminotransferase 47 U/L (6-35); Albumin Level 3.3 g/dL (3.5-5.1); Alkaline Phosphatase 86 U/L (38-126); Anion Gap 10 mmol/L (4-12); Aspartate Amino Transferase 54 U/L (14-36); Bilirubin,Total 0.9 mg/dL (0.2-1.3); Blood Urea Nitrogen 13 mg/dL (7-17); Calcium 8.5 mg/dL (8.4-10.2); Carbon Dioxide 24 mmol/L (22-30); Chloride 113 mmol/L (98-107); Estimated CRCL calculation 68 ml/min; Estimated Glomerular Filt Rate > 60; Glucose 128 mg/dL (65-110); Magnesium 1.6 mg/dL (1.6-2.3); Potassium 3.1 mmol/L (3.4-5.0); Sodium 147 mmol/L (137-145); Total Protein 5.2 g/dL (6.3-8.2)
[2025-01-20] MEDS: HYDROcodone/acetaminophen (*CRX) 5-325 MG TABLET 1 TAB PO ×3 (05:43→23:01)
[2025-01-20 05:44] LABS: Anisocytosis 1+; Burr Cells 1+; Hypochromasia 1+; Schistocytes None Seen
--- NOTE | 2025-01-20 07:41 | P.PNUR_ITS ---
Progress Note: A&P Assessment and Plan (1) Hydronephrosis, right: Code(s): N13.30 - Unspecified hydronephrosis Status: Acute Assessment and Plan: * Tolerating replacement of right ureteral stent well. Much improved hemodynamically overnight * Will plan to leave stent 10-14 days prior to removal again Subjective Subjective Date/Time Seen: 01/20/25 07:41 Interval history: Tolerating replacement right ureteral stent well. Review of Systems Cardiovascular: Cardiovascular: Denies chest pain, Denies lightheadedness, Denies palpitations and Denies dyspnea Respiratory: Respiratory: Denies dyspnea Gastrointestinal: Gastrointestinal: Denies diarrhea, Denies nausea and Denies vomiting Genitourinary: Genitourinary: Denies hematuria and Denies dysuria Endocrine: Endocrine: Denies palpitations Exam Const: General: no acute distress Resp: Effort & Inspection: normal respiratory effort GI: Inspection: non-distended GI Palp: No abdominal tenderness and No Guarding due to palpation present (GI) Auscultation: normal bowel sounds Objective Data Vital Signs Vital Signs: Vital Signs - 24 hr 01/19/25 07:45 01/19/25 07:46 01/19/25 07:50 Temperature Pulse Rate 116 H 117 H 115 H Respiratory Rate 21 H 23 H Blood Pressure 75/34 L 75/34 L Pulse Oximetry 94 95 Oxygen Delivery Oxygen Flow Rate 01/19/25 07:50 01/19/25 08:01 01/19/25 08:18 Temperature 101.1 F H Pulse Rate 115 H 115 H Respiratory Rate 23 H 18 Blood Pressure 85/66 L 99/63 L Pulse Oximetry 99 98 Oxygen Delivery Oxygen Flow Rate 01/19/25 08:31 01/19/25 09:00 01/19/25 09:30 Temperature Pulse Rate 110 H 110 H 103 H Respiratory Rate 20 24 H Blood Pressure 90/71 L 80/39 L 71/39 L Pulse Oximetry 98 Oxygen Delivery Oxygen Flow Rate 01/19/25 09:35 01/19/25 09:38 01/19/25 10:10 Temperature 102.9 F H 102.7 F H Pulse Rate 102 H 100 97 Respiratory Rate 20 18 Blood Pressure 71/39 L 113/58 L 94/50 L Pulse Oximetry 100 99 Oxygen Delivery Oxygen Flow Rate 01/19/25 10:17 01/19/25 10:27 01/19/25 10:28 Temperature 102.5 F H 102.3 F H Pulse Rate 96 100 96 Respiratory Rate 17 19 Blood Pressure 84/54 L 86/42 L 84/48 L Pulse Oximetry 100 Oxygen Delivery Oxygen Flow Rate 01/19/25 10:28 01/19/25 10:31 01/19/25 10:36 Temperature 102.3 F H 102.2 F H 102.1 F H Pulse Rate 96 96 95 Respiratory Rate 19 18 17 Blood Pressure 84/48 L 97/54 L 93/53 L Pulse Oximetry 99 100 100 Oxygen Delivery Oxygen Flow Rate 01/19/25 10:45 01/19/25 10:50 01/19/25 11:11 Temperature 101.9 F H 101.9 F H 101.8 F H Pulse Rate 99 100 95 Respiratory Rate 16 18 16 Blood Pressure 101/50 L 102/52 L 91/51 L Pulse Oximetry 100 100 97 Oxygen Delivery Oxygen Flow Rate 01/19/25 11:26 01/19/25 11:31 01/19/25 11:36 Temperature 101.7 F H 101.7 F H 101.7 F H Pulse Rate 95 96 96 Respiratory Rate 18 18 19 Blood Pressure 96/57 L 93/55 L 92/51 L Pulse Oximetry 97 95 98 Oxygen Delivery Oxygen Flow Rate 01/19/25 11:45 01/19/25 12:00 01/19/25 14:00 Temperature 101.7 F H Pulse Rate 98 90 90 Respiratory Rate 18 Blood Pressure 95/61 L 100/60 Pulse Oximetry 98 Oxygen Delivery Oxygen Flow Rate 01/19/25 14:00 01/19/25 14:00 01/19/25 14:21 Temperature Pulse Rate 91 92 90 Respiratory Rate 18 Blood Pressure 124/74 124/74 115/60 Pulse Oximetry 96 Oxygen Delivery Oxygen Flow Rate 01/19/25 14:37 01/19/25 14:38 01/19/25 15:06 Temperature Pulse Rate 95 93 86 Respiratory Rate Blood Pressure 118/68 118/68 129/92 H Pulse Oximetry Oxygen Delivery Oxygen Flow Rate 01/19/25 15:22 01/19/25 15:35 01/19/25 15:54 Temperature Pulse Rate 82 81 89 Respiratory Rate Blood Pressure 129/80 125/81 118/79 Pulse Oximetry Oxygen Delivery Oxygen Flow Rate 01/19/25 16:00 01/19/25 16:00 01/19/25 16:00 Temperature 98.6 F Pulse Rate 90 89 86 Respiratory Rate 17 Blood Pressure 110/78 124/74 Pulse Oximetry 96 Oxygen Delivery Oxygen Flow Rate 01/19/25 17:11 01/19/25 17:14 01/19/25 17:14 Temperature Pulse Rate 83 86 84 Respiratory Rate Blood Pressure 110/63 110/63 107/71 Pulse Oximetry Oxygen Delivery Oxygen Flow Rate 01/19/25 18:00 01/19/25 18:00 01/19/25 18:00 Temperature 98.6 F Pulse Rate 85 85 86 Respiratory Rate 16 Blood Pressure 110/71 118/68 Pulse Oximetry 95 Oxygen Delivery Oxygen Flow Rate 01/19/25 18:00 01/19/25 18:25 01/19/25 19:50 Temperature 101.4 F H Pulse Rate 90 87 86 Respiratory Rate 18 Blood Pressure 114/66 114/66 109/77 Pulse Oximetry 95 Oxygen Delivery Oxygen Flow Rate 01/19/25 20:00 01/19/25 20:00 01/19/25 20:00 Temperature Pulse Rate 86 86 86 Respiratory Rate Blood Pressure 120/58 L 120/58 L Pulse Oximetry Oxygen Delivery Oxygen Flow Rate 01/19/25 20:00 01/19/25 20:15 01/19/25 21:55 Temperature 101.2 F H Pulse Rate 87 77 Respiratory Rate 15 Blood Pressure 104/70 105/65 Pulse Oximetry 95 96 Oxygen Delivery Nasal Cannula Oxygen Flow Rate 2 01/19/25 22:00 01/19/25 22:00 01/19/25 22:00 Temperature Pulse Rate 78 76 76 Respiratory Rate Blood Pressure 114/66 114/66 Pulse Oximetry Oxygen Delivery Oxygen Flow Rate 01/19/25 22:15 01/19/25 23:00 01/19/25 23:15 Temperature Pulse Rate 79 73 72 Respiratory Rate Blood Pressure 102/64 101/65 105/64 Pulse Oximetry Oxygen Delivery Oxygen Flow Rate 01/19/25 23:59 01/20/25 00:00 01/20/25 00:00 Temperature 99.6 F Pulse Rate 75 76 76 Respiratory Rate 14 Blood Pressure 104/63 106/62 Pulse Oximetry 93 Oxygen Delivery Oxygen Flow Rate 01/20/25 00:00 01/20/25 00:00 01/20/25 01:15 Temperature Pulse Rate 76 71 Respiratory Rate Blood Pressure 106/62 105/67 Pulse Oximetry 93 Oxygen Delivery Room Air Oxygen Flow Rate 01/20/25 01:30 01/20/25 02:00 01/20/25 02:00 Temperature Pulse Rate 79 79 76 Respiratory Rate Blood Pressure 98/63 L 99/61 L Pulse Oximetry Oxygen Delivery Oxygen Flow Rate 01/20/25 02:00 01/20/25 04:00 01/20/25 04:00 Temperature 99.0 F 98.5 F Pulse Rate 75 81 82 Respiratory Rate 13 19 Blood Pressure 99/61 L 109/97 H 109/97 H Pulse Oximetry 93 93 Oxygen Delivery Oxygen Flow Rate 01/20/25 04:00 01/20/25 04:00 01/20/25 06:00 Temperature Pulse Rate 83 70 Respiratory Rate Blood Pressure Pulse Oximetry 93 Oxygen Delivery Room Air Oxygen Flow Rate 01/20/25 06:00 01/20/25 06:00 Temperature 98.9 F Pulse Rate 66 77 Respiratory Rate 17 Blood Pressure 135/88 135/88 Pulse Oximetry 91 Oxygen Delivery Oxygen Flow Rate Intake/Output Intake/Output: Intake & Output 01/17/25 01/18/25 01/19/25 01/20/25 23:59 23:59 23:59 23:59 Intake Total 6105.9 353.8 Output Total 2400 850 Balance 3705.9 -496.2 Meds/Results Medications: Active Medications Generic Name Dose Route Start Last Admin Trade Name Freq PRN Reason Stop Dose Admin Acetaminophen 650 mg 01/19/25 19:33 Acetaminophen 325 Mg Tablet PO Q4H PRN Mild Pain (1-3) or Fever Hydrocodone Bitart/Acetaminophen 1 tab 01/19/25 19:33 01/20/25 05:43 Hydrocodone/Acetaminophen (*Crx) 5-325 Mg Tablet PO 1 tab Q6H PRN Administration Pain Rated 4-6 Albuterol/Ipratropium 3 ml 01/19/25 11:08 Ipratropium 0.5 Mg/Albuterol Sulfate 2.5 Mg Ampul.Neb 3 Ml INHALATION Q6HRT PRN Wheezing Dextrose 12.5 gm 01/19/25 11:10 Dextrose 50% 25 Gm/50 Ml Syringe IV PUSH PRN PRN Hypoglycemia Protocol Glucagon 1 mg 01/19/25 11:10 Glucagon For Inj 1 Mg Vial IM PRN PRN Hypoglycemia Protocol Glucose 15 gm 01/19/25 11:10 Glucose Oral Gel 15 Gm Of Glucse In 37.5 Gm Tube PO PRN PRN Hypoglycemia Protocol Hydrocortisone Sodium Succinate 100 mg 01/19/25 12:00 01/20/25 04:45 Hydrocortisone Sodium Succinate 100 Mg/2 Ml Vial IV PUSH 100 mg Q8H AINSLEY Administration Norepinephrine Bitartrate 8 mg in 250 mls @ 0 mls/hr 01/19/25 07:30 01/20/25 06:00 Levophed 8 Mg/D5w 250 Ml IV CONT 0 mcg/min .Q0M AINSLEY 0 mls/hr Titration Protocol Meropenem 1 gm/ Sodium 100 mls @ 200 mls/hr 01/19/25 18:00 01/20/25 01:56 Chloride IVPB Infused Q8H AINSLEY Infusion Vancomycin HCl 1,500 mg in 500 mls @ 250 mls/hr 01/20/25 11:00 Vancomycin 1,500 Mg/Ns 500 Ml IVPB Q24H AINSLEY Lactated Ringer's 1,000 mls @ 100 mls/hr 01/19/25 11:10 01/19/25 22:59 Lr - Lactated Ringers Iv IV CONT 100 mls/hr .Q10H AINSLEY Administration Dextrose 1,000 mls @ 100 mls/hr 01/19/25 11:10 Dextrose 5% 1,000 Ml IVPB PRN PRN Hypoglycemia Protocol Insulin Aspart 3 - 6 units 01/19/25 11:15 01/20/25 04:41 Insulin Aspart (*Bkc) 100 Units/Ml SUB-Q Not Given Q4HR AINSLEY Protocol Levetiracetam 1,500 mg 01/19/25 11:15 01/19/25 20:02 Levetiracetam 500 Mg Tablet PO 1,500 mg Q12HR AINSLEY Administration Pantoprazole Sodium 40 mg 01/19/25 11:15 01/19/25 13:19 Pantoprazole Sodium Iv 40 Mg Vial IV PUSH 40 mg QAM AINSLEY Administration Topiramate 25 mg 01/19/25 21:00 01/19/25 20:02 Topiramate 25 Mg Tablet PO 25 mg QHS AINSLEY Administration Radiology Results: ITS Impressions Head CT 01/19/25 09:30 IMPRESSION: Cerebral atherosclerosis and chronic small vessel ischemic changes of the cerebral white matter No skull fracture or acute intracranial finding Abdomen/Pelvis CT 01/19/25 11:33 IMPRESSION: 1. Mild right hydronephrosis with urothelial enhancement, suspicious for ascending urinary tract infection. Retrograde Pyelogram 01/19/25 12:18 IMPRESSION: 1. Right internal ureteral stent placement. Please refer to real-time procedural findings for details. Labs Labs: Laboratory Results - last 24 hr 01/19/25 01/19/25 01/19/25 07:43 08:18 09:59 WBC RBC Hgb Hct MCV MCH MCHC RDW Plt Count MPV Immature Gran % (Auto) Neut % (Auto) Lymph % (Auto) Treasure % (Auto) Eos % (Auto) Baso % (Auto) Lymph # (Auto) [place] # (Auto) Eos # (Auto) Baso # (Auto) Abs Immat Gran (auto) Absolute Neuts (auto) Absolute Nucleated RBC Band Neutrophils % Nucleated RBC % Platelet Estimate % Immature Plt Fraction Hypochromasia Anisocytosis [place] Cells Schistocytes Puncture Site Left radial ABG pH 7.458 H ABG pCO2 25.8 L ABG pO2 79.2 L ABG PO2/FiO2 Ratio 2.83 ABG HCO3 17.9 L ABG O2 Saturation 96.5 ABG O2 Content 14.9 L ABG Base Excess -4.7 A-a Gradient 90.0 Oxyhemoglobin 95.0 Total Hemoglobin 11.1 L O2 Delivery Device Nasal cannula O2 Liters/Min 2.0 FiO2 28 Sodium 137 Potassium 2.4 L* Chloride 104 Carbon Dioxide 20 L Anion Gap 13 H BUN 20 H Creatinine 1.38 H Estim Creat Clear Calc 44 Estimated GFR 39 L Glucose 177 H POC Capillary Glucose Lactic Acid 6.2 H* Calcium 7.6 L Phosphorus Magnesium Total Bilirubin 0.8 AST 80 H ALT 65 H Alkaline Phosphatase 136 H C-Reactive Protein 4.9 H Total Protein 4.9 L Albumin 2.8 L Nasal MRSA (PCR) 01/19/25 01/19/25 01/19/25 10:30 13:21 15:54 WBC RBC Hgb Hct MCV MCH MCHC RDW Plt Count MPV Immature Gran % (Auto) Neut % (Auto) Lymph % (Auto) [place] % (Auto) Eos % (Auto) Baso % (Auto) Lymph # (Auto) [place] # (Auto) Eos # (Auto) Baso # (Auto) Abs Immat Gran (auto) Absolute Neuts (auto) Absolute Nucleated RBC Band Neutrophils % Nucleated RBC % Platelet Estimate % Immature Plt Fraction Hypochromasia Anisocytosis [place] Cells Schistocytes Puncture Site ABG pH ABG pCO2 ABG pO2 ABG PO2/FiO2 Ratio ABG HCO3 ABG O2 Saturation ABG O2 Content ABG Base Excess A-a Gradient Oxyhemoglobin Total Hemoglobin O2 Delivery Device O2 Liters/Min FiO2 Sodium Potassium Chloride Carbon Dioxide Anion Gap BUN Creatinine Estim Creat Clear Calc Estimated GFR Glucose POC Capillary Glucose 192 H 229 H Lactic Acid Calcium Phosphorus Magnesium Total Bilirubin AST ALT Alkaline Phosphatase C-Reactive Protein Total Protein Albumin Nasal MRSA (PCR) Not detected 01/19/25 01/19/25 01/19/25 18:16 19:54 23:52 WBC RBC Hgb Hct MCV MCH MCHC RDW Plt Count MPV Immature Gran % (Auto) Neut % (Auto) Lymph % (Auto) [place] % (Auto) Eos % (Auto) Baso % (Auto) Lymph # (Auto) [place] # (Auto) Eos # (Auto) Baso # (Auto) Abs Immat Gran (auto) Absolute Neuts (auto) Absolute Nucleated RBC Band Neutrophils % Nucleated RBC % Platelet Estimate % Immature Plt Fraction Hypochromasia Anisocytosis [place] Cells Schistocytes Puncture Site ABG pH ABG pCO2 ABG pO2 ABG PO2/FiO2 Ratio ABG HCO3 ABG O2 Saturation ABG O2 Content ABG Base Excess A-a Gradient Oxyhemoglobin Total Hemoglobin O2 Delivery Device O2 Liters/Min FiO2 Sodium 143 Potassium 3.6 Chloride 112 H Carbon Dioxide 22 Anion Gap 9 BUN 13 D Creatinine 0.97 Estim Creat Clear Calc 61 Estimated GFR 59 Glucose 215 H POC Capillary Glucose 172 H 155 H Lactic Acid Calcium 8.5 Phosphorus Magnesium Total Bilirubin 1.0 AST 53 H ALT 49 H Alkaline Phosphatase 102 C-Reactive Protein Total Protein 5.3 L Albumin 3.3 L Nasal MRSA (PCR) 01/20/25 01/20/25 03:50 04:55 WBC 10.6 H RBC 2.64 L Hgb 9.0 L D Hct 27.7 L MCV 104.9 H MCH 34.1 H MCHC 32.5 RDW 16.1 H Plt Count 48 L MPV 12.8 H Immature Gran % (Auto) 0.7 H Neut % (Auto) 78.8 H Lymph % (Auto) 11.2 L [place] % (Auto) 9.0 H Eos % (Auto) 0.0 Baso % (Auto) 0.3 Lymph # (Auto) 1.19 [place] # (Auto) 1.0 H Eos # (Auto) 0.0 Baso # (Auto) 0.0 Abs Immat Gran (auto) 0.07 H Absolute Neuts (auto) 8.4 H Absolute Nucleated RBC 0.000 Band Neutrophils % Not Reportable Nucleated RBC % 0.0 Platelet Estimate Decreased % Immature Plt Fraction 11.1 Hypochromasia 1+ Anisocytosis 1+ [place] Cells 1+ Schistocytes None seen Puncture Site ABG pH ABG pCO2 ABG pO2 ABG PO2/FiO2 Ratio ABG HCO3 ABG O2 Saturation ABG O2 Content ABG Base Excess A-a Gradient Oxyhemoglobin Total Hemoglobin O2 Delivery Device O2 Liters/Min FiO2 Sodium 147 H Potassium 3.1 L Chloride 113 H Carbon Dioxide 24 Anion Gap 10 BUN 13 Creatinine 0.89 Estim Creat Clear Calc 68 Estimated GFR > 60 Glucose 128 H POC Capillary Glucose 136 H Lactic Acid Calcium 8.5 Phosphorus 2.1 L Magnesium 1.6 Total Bilirubin 0.9 AST 54 H ALT 47 H Alkaline Phosphatase 86 C-Reactive Protein Total Protein 5.2 L Albumin 3.3 L Nasal MRSA (PCR)
--- NOTE | 2025-01-20 08:42 | P.PNINT_ITS ---
Progress Note: A&P Assessment and Plan (1) Septic shock: Code(s): A41.9 - Sepsis, unspecified organism; R65.21 - Severe sepsis with septic shock Status: Acute Assessment and Plan: Septic shock secondary to UTI with hydronephrosis CT scan of abdomen pelvis showed Mild right hydronephrosis with urothelial enhancement, suspicious for ascending urinary tract infection. 01/19 Cystoscopy, right RPG, right stent placement IV fluid bolus given and patient was started on vasopressor. She also received Albumin 25% Vasopressors have been weaned off. I will discontinue albumin. Wean off hyd rocortisone Blood and urine cultures have been sent Maintain map> 65 Continue empiric meropenem. I will discontinue vancomycin (2) Calculus of proximal right ureter: Code(s): N20.1 - Calculus of ureter Status: Acute Assessment and Plan: See above (3) Seizures: Code(s): R56.9 - Unspecified convulsions Status: Acute Assessment and Plan: Continue Keppra (4) COPD (chronic obstructive pulmonary disease): Code(s): J44.9 - Chronic obstructive pulmonary disease, unspecified Status: Chronic Assessment and Plan: DuoNeb (5) Thrombocytopenia: Code(s): D69.6 - Thrombocytopenia, unspecified Status: Acute Assessment and Plan: Likely secondary to sepsis, hold Lovenox but will start aspirin due to history of coronary disease (6) SEVERO (acute kidney injury): Code(s): N17.9 - Acute kidney failure, unspecified Status: Acute Assessment and Plan: Likely secondary to sepsis and hypotension along with the ureteral stone Resolved with IV fluids Monitor urine output electrolytes and creatinine Management of electrolyte abnormalities as below (7) Metabolic acidosis: Code(s): E87.20 - Acidosis, unspecified Status: Acute Assessment and Plan: Improved with supportive treatment (8) Electrolyte abnormality: Code(s): E87.8 - Other disorders of electrolyte and fluid balance, not elsewhere classified Status: Acute Assessment and Plan: Potassium replacement ordered. Replace phos (9) Type 2 diabetes mellitus: Qualifiers: Diabetes mellitus complication status: with hyperglycemia Diabetes mellitus [facility] insulin use: without intermodal customer service use Qualified Code(s): E11.65 - Type 2 diabetes mellitus with hyperglycemia Code(s): E11.9 - Type 2 diabetes mellitus without complications Status: Acute Assessment and Plan: Sliding scale insulin Resume diabetic diet Plan DVT prophylaxis -SCD Stress ulcer prophylaxis -PPI Nutrition -start diet Code Status - Full Code Incentive spirometry Total Critical Care Time - 30 minutes Due to a high probability of clinically significant, life threatening deterioration, the patient required my highest level of preparedness to intervene emergently and I personally spent this critical care time directly and personally managing the patient. This critical care time included obtaining a history; examining the patient; pulse oximetry; ordering and review of studies; arranging urgent treatment with development of a management plan; evaluation of patient's response to treatment; frequent reassessment; and discussions with other providers. It was exclusive of separately billable procedures and treating other patients and teaching time. Please see Assessment and Plan section and the rest of the note for further information on patient assessment and treatment Subjective Date/time seen: 01/20/25 She feels better than yesterday but still feels otherwise weak and tired. She states she has back pain from laying in bed. She does not remember anything from yesterday as she was very sick. Patient denies fever, chest pain, shortness of breath, cough, nausea vomiting, abdominal pain,, diarrhea, headache or constipation. All other systems were reviewed and were negative. She has been weaned off vasopressors. She is on IV fluids. Improved urine output. She is on room air Review of Systems Review of Systems: All systems reviewed & are unremarkable except as noted in HPI and below (HPI) Exam Narrative: General: Alert awake and in no distress Lungs/Chest: Trachea central Clear BS B/L, No crackles or wheezing. Cardiac: RRR. Normal S1 S2. No murmurs Circulation: Pedal pulses are intact and symmetrical. Abdomen: Normal bowel sounds. Obese. Soft. NT. ND. Extremities: No clubbing, cyanosis or edema. Warm : Long in place Neurologic: Alert awake A/O x3 moves all 4 extremities and follows commands PERRL Skin: No Rash Objective Data Vital Signs Vital Signs: Vital Signs - 24 hr 01/19/25 09:00 01/19/25 09:30 01/19/25 09:35 Temperature Pulse Rate 110 H 103 H 102 H Respiratory Rate 24 H Blood Pressure 80/39 L 71/39 L 71/39 L Pulse Oximetry 98 Oxygen Delivery Oxygen Flow Rate 01/19/25 09:38 01/19/25 10:10 01/19/25 10:17 Temperature 39.4 C H 39.3 C H 39.2 C H Pulse Rate 100 97 96 Respiratory Rate 20 18 17 Blood Pressure 113/58 L 94/50 L 84/54 L Pulse Oximetry 100 99 100 Oxygen Delivery Oxygen Flow Rate 01/19/25 10:27 01/19/25 10:28 01/19/25 10:28 Temperature 39.1 C H 39.1 C H Pulse Rate 100 96 96 Respiratory Rate 19 19 Blood Pressure 86/42 L 84/48 L 84/48 L Pulse Oximetry 99 Oxygen Delivery Oxygen Flow Rate 01/19/25 10:31 01/19/25 10:36 01/19/25 10:45 Temperature 39.0 C H 38.9 C H 38.8 C H Pulse Rate 96 95 99 Respiratory Rate 18 17 16 Blood Pressure 97/54 L 93/53 L 101/50 L Pulse Oximetry 100 100 100 Oxygen Delivery Oxygen Flow Rate 01/19/25 10:50 01/19/25 11:11 01/19/25 11:26 Temperature 38.8 C H 38.8 C H 38.7 C H Pulse Rate 100 95 95 Respiratory Rate 18 16 18 Blood Pressure 102/52 L 91/51 L 96/57 L Pulse Oximetry 100 97 97 Oxygen Delivery Oxygen Flow Rate 01/19/25 11:31 01/19/25 11:36 01/19/25 11:45 Temperature 38.7 C H 38.7 C H 38.7 C H Pulse Rate 96 96 98 Respiratory Rate 18 19 18 Blood Pressure 93/55 L 92/51 L 95/61 L Pulse Oximetry 95 98 98 Oxygen Delivery Oxygen Flow Rate 01/19/25 12:00 01/19/25 14:00 01/19/25 14:00 Temperature Pulse Rate 90 90 91 Respiratory Rate 18 Blood Pressure 100/60 124/74 Pulse Oximetry 96 Oxygen Delivery Oxygen Flow Rate 01/19/25 14:00 01/19/25 14:21 01/19/25 14:37 Temperature Pulse Rate 92 90 95 Respiratory Rate Blood Pressure 124/74 115/60 118/68 Pulse Oximetry Oxygen Delivery Oxygen Flow Rate 01/19/25 14:38 01/19/25 15:06 01/19/25 15:22 Temperature Pulse Rate 93 86 82 Respiratory Rate Blood Pressure 118/68 129/92 H 129/80 Pulse Oximetry Oxygen Delivery Oxygen Flow Rate 01/19/25 15:35 01/19/25 15:54 01/19/25 16:00 Temperature 37.0 C Pulse Rate 81 89 90 Respiratory Rate 17 Blood Pressure 125/81 118/79 110/78 Pulse Oximetry 96 Oxygen Delivery Oxygen Flow Rate 01/19/25 16:00 01/19/25 16:00 01/19/25 17:11 Temperature Pulse Rate 89 86 83 Respiratory Rate Blood Pressure 124/74 110/63 Pulse Oximetry Oxygen Delivery Oxygen Flow Rate 01/19/25 17:14 01/19/25 17:14 01/19/25 18:00 Temperature Pulse Rate 86 84 85 Respiratory Rate Blood Pressure 110/63 107/71 Pulse Oximetry Oxygen Delivery Oxygen Flow Rate 01/19/25 18:00 01/19/25 18:00 01/19/25 18:00 Temperature 37.0 C Pulse Rate 85 86 90 Respiratory Rate 16 Blood Pressure 110/71 118/68 114/66 Pulse Oximetry 95 Oxygen Delivery Oxygen Flow Rate 01/19/25 18:25 01/19/25 19:50 01/19/25 20:00 Temperature 38.6 C H Pulse Rate 87 86 86 Respiratory Rate 18 Blood Pressure 114/66 109/77 Pulse Oximetry 95 Oxygen Delivery Oxygen Flow Rate 01/19/25 20:00 01/19/25 20:00 01/19/25 20:00 Temperature Pulse Rate 86 86 Respiratory Rate Blood Pressure 120/58 L 120/58 L Pulse Oximetry 95 Oxygen Delivery Nasal Cannula Oxygen Flow Rate 2 01/19/25 20:15 01/19/25 21:55 01/19/25 22:00 Temperature 38.4 C H Pulse Rate 87 77 78 Respiratory Rate 15 Blood Pressure 104/70 105/65 Pulse Oximetry 96 Oxygen Delivery Oxygen Flow Rate 01/19/25 22:00 01/19/25 22:00 01/19/25 22:15 Temperature Pulse Rate 76 76 79 Respiratory Rate Blood Pressure 114/66 114/66 102/64 Pulse Oximetry Oxygen Delivery Oxygen Flow Rate 01/19/25 23:00 01/19/25 23:15 01/19/25 23:59 Temperature 37.6 C Pulse Rate 73 72 75 Respiratory Rate 14 Blood Pressure 101/65 105/64 104/63 Pulse Oximetry 93 Oxygen Delivery Oxygen Flow Rate 01/20/25 00:00 01/20/25 00:00 01/20/25 00:00 Temperature Pulse Rate 76 76 76 Respiratory Rate Blood Pressure 106/62 106/62 Pulse Oximetry Oxygen Delivery Oxygen Flow Rate 01/20/25 00:00 01/20/25 01:15 01/20/25 01:30 Temperature Pulse Rate 71 79 Respiratory Rate Blood Pressure 105/67 98/63 L Pulse Oximetry 93 Oxygen Delivery Room Air Oxygen Flow Rate 01/20/25 02:00 01/20/25 02:00 01/20/25 02:00 Temperature 37.2 C Pulse Rate 79 76 75 Respiratory Rate 13 Blood Pressure 99/61 L 99/61 L Pulse Oximetry 93 Oxygen Delivery Oxygen Flow Rate 01/20/25 04:00 01/20/25 04:00 01/20/25 04:00 Temperature 36.9 C Pulse Rate 81 82 83 Respiratory Rate 19 Blood Pressure 109/97 H 109/97 H Pulse Oximetry 93 Oxygen Delivery Oxygen Flow Rate 01/20/25 04:00 01/20/25 06:00 01/20/25 06:00 Temperature Pulse Rate 70 66 Respiratory Rate Blood Pressure 135/88 Pulse Oximetry 93 Oxygen Delivery Room Air Oxygen Flow Rate 01/20/25 06:00 Temperature 37.2 C Pulse Rate 77 Respiratory Rate 17 Blood Pressure 135/88 Pulse Oximetry 91 Oxygen Delivery Oxygen Flow Rate Intake/Output Intake/Output: Intake & Output 01/17/25 01/18/25 01/19/25 01/20/25 23:59 23:59 23:59 23:59 Intake Total 6105.9 353.8 Output Total 2400 850 Balance 3705.9 -496.2 Meds/Results Medications: Active Medications Generic Name Dose Route Start Last Admin Trade Name Freq PRN Reason Stop Dose Admin Acetaminophen 650 mg 01/19/25 19:33 Acetaminophen 325 Mg Tablet PO Q4H PRN Mild Pain (1-3) or Fever Hydrocodone Bitart/Acetaminophen 1 tab 01/19/25 19:33 01/20/25 05:43 Hydrocodone/Acetaminophen (*Crx) 5-325 Mg Tablet PO 1 tab Q6H PRN Administration Pain Rated 4-6 Albuterol/Ipratropium 3 ml 01/19/25 11:08 Ipratropium 0.5 Mg/Albuterol Sulfate 2.5 Mg Ampul.Neb 3 Ml INHALATION Q6HRT PRN Wheezing Aspirin 81 mg 01/20/25 09:00 Aspirin 81 Mg Enteric Tablet PO QAM AINSLEY Atorvastatin Calcium 40 mg 01/20/25 09:00 Atorvastatin 40 Mg Tablet PO DAILY AINSLEY Dextrose 12.5 gm 01/19/25 11:10 Dextrose 50% 25 Gm/50 Ml Syringe IV PUSH PRN PRN Hypoglycemia Protocol Glucagon 1 mg 01/19/25 11:10 Glucagon For Inj 1 Mg Vial IM PRN PRN Hypoglycemia Protocol Glucose 15 gm 01/19/25 11:10 Glucose Oral Gel 15 Gm Of Glucse In 37.5 Gm Tube PO PRN PRN Hypoglycemia Protocol Hydrocortisone Sodium Succinate 100 mg 01/19/25 12:00 01/20/25 04:45 Hydrocortisone Sodium Succinate 100 Mg/2 Ml Vial IV PUSH 01/20/25 12:00 100 mg Q8H AINSLEY Administration Meropenem 1 gm/ Sodium 100 mls @ 200 mls/hr 01/19/25 18:00 01/20/25 01:56 Chloride IVPB Infused Q8H AINSLEY Infusion Dextrose 1,000 mls @ 100 mls/hr 01/19/25 11:10 Dextrose 5% 1,000 Ml IVPB PRN PRN Hypoglycemia Protocol Insulin Aspart 3 - 6 units 01/20/25 11:30 Insulin Aspart (*Bkc) 100 Units/Ml SUB-Q ACHS AINSLEY Protocol Levetiracetam 1,500 mg 01/19/25 11:15 01/19/25 20:02 Levetiracetam 500 Mg Tablet PO 1,500 mg Q12HR AINSLEY Administration Pantoprazole Sodium 40 mg 01/19/25 11:15 01/19/25 13:19 Pantoprazole Sodium Iv 40 Mg Vial IV PUSH 40 mg QAM AINSLEY Administration Topiramate 25 mg 01/19/25 21:00 01/19/25 20:02 Topiramate 25 Mg Tablet PO 25 mg QHS AINSLEY Administration Radiology Results: ITS Impressions Head CT 01/19/25 09:30 IMPRESSION: Cerebral atherosclerosis and chronic small vessel ischemic changes of the cerebral white matter No skull fracture or acute intracranial finding Abdomen/Pelvis CT 01/19/25 11:33 IMPRESSION: 1. Mild right hydronephrosis with urothelial enhancement, suspicious for ascending urinary tract infection. Retrograde Pyelogram 01/19/25 12:18 IMPRESSION: 1. Right internal ureteral stent placement. Please refer to real-time procedural findings for details. Labs Labs: Laboratory Results - last 24 hr 01/19/25 01/19/25 01/19/25 07:43 09:59 10:30 WBC RBC Hgb Hct MCV MCH MCHC RDW Plt Count MPV Immature Gran % (Auto) Neut % (Auto) Lymph % (Auto) [place] % (Auto) Eos % (Auto) Baso % (Auto) Lymph # (Auto) [place] # (Auto) Eos # (Auto) Baso # (Auto) Abs Immat Gran (auto) Absolute Neuts (auto) Absolute Nucleated RBC Band Neutrophils % Nucleated RBC % Platelet Estimate % Immature Plt Fraction Hypochromasia Anisocytosis Inés Cells Schistocytes Puncture Site Left radial ABG pH 7.458 H ABG pCO2 25.8 L ABG pO2 79.2 L ABG PO2/FiO2 Ratio 2.83 ABG HCO3 17.9 L ABG O2 Saturation 96.5 ABG O2 Content 14.9 L ABG Base Excess -4.7 A-a Gradient 90.0 Oxyhemoglobin 95.0 Total Hemoglobin 11.1 L O2 Delivery Device Nasal cannula O2 Liters/Min 2.0 FiO2 28 Sodium 137 Potassium 2.4 L* Chloride 104 Carbon Dioxide 20 L Anion Gap 13 H BUN 20 H Creatinine 1.38 H Estim Creat Clear Calc 44 Estimated GFR 39 L Glucose 177 H POC Capillary Glucose Calcium 7.6 L Phosphorus Magnesium Total Bilirubin 0.8 AST 80 H ALT 65 H Alkaline Phosphatase 136 H C-Reactive Protein 4.9 H Total Protein 4.9 L Albumin 2.8 L Nasal MRSA (PCR) Not detected 01/19/25 01/19/25 01/19/25 13:21 15:54 18:16 WBC RBC Hgb Hct MCV MCH MCHC RDW Plt Count MPV Immature Gran % (Auto) Neut % (Auto) Lymph % (Auto) [place] % (Auto) Eos % (Auto) Baso % (Auto) Lymph # (Auto) [place] # (Auto) Eos # (Auto) Baso # (Auto) Abs Immat Gran (auto) Absolute Neuts (auto) Absolute Nucleated RBC Band Neutrophils % Nucleated RBC % Platelet Estimate % Immature Plt Fraction Hypochromasia Anisocytosis Inés Cells Schistocytes Puncture Site ABG pH ABG pCO2 ABG pO2 ABG PO2/FiO2 Ratio ABG HCO3 ABG O2 Saturation ABG O2 Content ABG Base Excess A-a Gradient Oxyhemoglobin Total Hemoglobin O2 Delivery Device O2 Liters/Min FiO2 Sodium 143 Potassium 3.6 Chloride 112 H Carbon Dioxide 22 Anion Gap 9 BUN 13 D Creatinine 0.97 Estim Creat Clear Calc 61 Estimated GFR 59 Glucose 215 H POC Capillary Glucose 192 H 229 H Calcium 8.5 Phosphorus Magnesium Total Bilirubin 1.0 AST 53 H ALT 49 H Alkaline Phosphatase 102 C-Reactive Protein Total Protein 5.3 L Albumin 3.3 L Nasal MRSA (PCR) 01/19/25 01/19/25 01/20/25 19:54 23:52 03:50 WBC RBC Hgb Hct MCV MCH MCHC RDW Plt Count MPV Immature Gran % (Auto) Neut % (Auto) Lymph % (Auto) [place] % (Auto) Eos % (Auto) Baso % (Auto) Lymph # (Auto) [place] # (Auto) Eos # (Auto) Baso # (Auto) Abs Immat Gran (auto) Absolute Neuts (auto) Absolute Nucleated RBC Band Neutrophils % Nucleated RBC % Platelet Estimate % Immature Plt Fraction Hypochromasia Anisocytosis Inés Cells Schistocytes Puncture Site ABG pH ABG pCO2 ABG pO2 ABG PO2/FiO2 Ratio ABG HCO3 ABG O2 Saturation ABG O2 Content ABG Base Excess A-a Gradient Oxyhemoglobin Total Hemoglobin O2 Delivery Device O2 Liters/Min FiO2 Sodium Potassium Chloride Carbon Dioxide Anion Gap BUN Creatinine Estim Creat Clear Calc Estimated GFR Glucose POC Capillary Glucose 172 H 155 H 136 H Calcium Phosphorus Magnesium Total Bilirubin AST ALT Alkaline Phosphatase C-Reactive Protein Total Protein Albumin Nasal MRSA (PCR) 01/20/25 04:55 WBC 10.6 H RBC 2.64 L Hgb 9.0 L D Hct 27.7 L MCV 104.9 H MCH 34.1 H MCHC 32.5 RDW 16.1 H Plt Count 48 L MPV 12.8 H Immature Gran % (Auto) 0.7 H Neut % (Auto) 78.8 H Lymph % (Auto) 11.2 L [place] % (Auto) 9.0 H Eos % (Auto) 0.0 Baso % (Auto) 0.3 Lymph # (Auto) 1.19 [place] # (Auto) 1.0 H Eos # (Auto) 0.0 Baso # (Auto) 0.0 Abs Immat Gran (auto) 0.07 H Absolute Neuts (auto) 8.4 H Absolute Nucleated RBC 0.000 Band Neutrophils % Not Reportable Nucleated RBC % 0.0 Platelet Estimate Decreased % Immature Plt Fraction 11.1 Hypochromasia 1+ Anisocytosis 1+ [place] Cells 1+ Schistocytes None seen Puncture Site ABG pH ABG pCO2 ABG pO2 ABG PO2/FiO2 Ratio ABG HCO3 ABG O2 Saturation ABG O2 Content ABG Base Excess A-a Gradient Oxyhemoglobin Total Hemoglobin O2 Delivery Device O2 Liters/Min FiO2 Sodium 147 H Potassium 3.1 L Chloride 113 H Carbon Dioxide 24 Anion Gap 10 BUN 13 Creatinine 0.89 Estim Creat Clear Calc 68 Estimated GFR > 60 Glucose 128 H POC Capillary Glucose Calcium 8.5 Phosphorus 2.1 L Magnesium 1.6 Total Bilirubin 0.9 AST 54 H ALT 47 H Alkaline Phosphatase 86 C-Reactive Protein Total Protein 5.2 L Albumin 3.3 L Nasal MRSA (PCR) Quality VTE Prophylaxis VTE prophylaxis: mechanical ordered
[2025-01-20] MEDS: POTASSIUM BICARBONATE 25 MEQ TABEF 50 MEQ PO (09:21)
[2025-01-20] MEDS: PANTOPRAZOLE SODIUM IV 40 MG VIAL IV PUSH (09:21)
[2025-01-20] MEDS: ASPIRIN 81 MG ENTERIC TABLET PO (09:21)
[2025-01-20] MEDS: ATORVASTATIN 40 MG TABLET PO (09:21)
[2025-01-20] MEDS: POTASSIUM PHOS,M-BASIC-D-BASIC 15 MMOL in SODIUM CHLORIDE 0.9% IV 250 ML 63.75 MMOL IVPB (09:36)
--- NOTE | 2025-01-20 12:16 | PC.NURSE ---
Patient transferred from ICU 6 to room 201.
[2025-01-20 13:58] LABS: Toxigenic C. Diff NEGATIVE (NEGATIVE)
--- NOTE | 2025-01-20 16:56 | PM.IMPN ---
Subjective Date/time seen: 01/20/25 16:56 Objective Data Vital Signs Vital Signs: Vital Signs - 24 hr 01/19/25 17:11 01/19/25 17:14 01/19/25 17:14 Temperature Pulse Rate 83 86 84 Respiratory Rate Blood Pressure 110/63 110/63 107/71 Pulse Oximetry Oxygen Delivery Oxygen Flow Rate 01/19/25 18:00 01/19/25 18:00 01/19/25 18:00 Temperature 37.0 C Pulse Rate 85 85 86 Respiratory Rate 16 Blood Pressure 110/71 118/68 Pulse Oximetry 95 Oxygen Delivery Oxygen Flow Rate 01/19/25 18:00 01/19/25 18:25 01/19/25 19:50 Temperature 38.6 C H Pulse Rate 90 87 86 Respiratory Rate 18 Blood Pressure 114/66 114/66 109/77 Pulse Oximetry 95 Oxygen Delivery Oxygen Flow Rate 01/19/25 20:00 01/19/25 20:00 01/19/25 20:00 Temperature Pulse Rate 86 86 86 Respiratory Rate Blood Pressure 120/58 L 120/58 L Pulse Oximetry Oxygen Delivery Oxygen Flow Rate 01/19/25 20:00 01/19/25 20:15 01/19/25 21:55 Temperature 38.4 C H Pulse Rate 87 77 Respiratory Rate 15 Blood Pressure 104/70 105/65 Pulse Oximetry 95 96 Oxygen Delivery Nasal Cannula Oxygen Flow Rate 2 01/19/25 22:00 01/19/25 22:00 01/19/25 22:00 Temperature Pulse Rate 78 76 76 Respiratory Rate Blood Pressure 114/66 114/66 Pulse Oximetry Oxygen Delivery Oxygen Flow Rate 01/19/25 22:15 01/19/25 23:00 01/19/25 23:15 Temperature Pulse Rate 79 73 72 Respiratory Rate Blood Pressure 102/64 101/65 105/64 Pulse Oximetry Oxygen Delivery Oxygen Flow Rate 01/19/25 23:59 01/20/25 00:00 01/20/25 00:00 Temperature 37.6 C Pulse Rate 75 76 76 Respiratory Rate 14 Blood Pressure 104/63 106/62 Pulse Oximetry 93 Oxygen Delivery Oxygen Flow Rate 01/20/25 00:00 01/20/25 00:00 01/20/25 01:15 Temperature Pulse Rate 76 71 Respiratory Rate Blood Pressure 106/62 105/67 Pulse Oximetry 93 Oxygen Delivery Room Air Oxygen Flow Rate 01/20/25 01:30 01/20/25 02:00 01/20/25 02:00 Temperature Pulse Rate 79 79 76 Respiratory Rate Blood Pressure 98/63 L 99/61 L Pulse Oximetry Oxygen Delivery Oxygen Flow Rate 01/20/25 02:00 01/20/25 04:00 01/20/25 04:00 Temperature 37.2 C 36.9 C Pulse Rate 75 81 82 Respiratory Rate 13 19 Blood Pressure 99/61 L 109/97 H 109/97 H Pulse Oximetry 93 93 Oxygen Delivery Oxygen Flow Rate 01/20/25 04:00 01/20/25 04:00 01/20/25 06:00 Temperature Pulse Rate 83 70 Respiratory Rate Blood Pressure Pulse Oximetry 93 Oxygen Delivery Room Air Oxygen Flow Rate 01/20/25 06:00 01/20/25 06:00 01/20/25 08:00 Temperature 37.2 C Pulse Rate 66 77 Respiratory Rate 17 Blood Pressure 135/88 135/88 Pulse Oximetry 91 97 Oxygen Delivery Room Air Oxygen Flow Rate 01/20/25 08:00 01/20/25 08:00 01/20/25 08:58 Temperature 37.0 C Pulse Rate 76 77 Respiratory Rate 14 Blood Pressure 126/81 Pulse Oximetry 96 92 Oxygen Delivery Room Air Oxygen Flow Rate 01/20/25 10:00 01/20/25 10:00 01/20/25 12:00 Temperature Pulse Rate 69 70 Respiratory Rate 17 Blood Pressure 124/81 Pulse Oximetry 97 95 Oxygen Delivery Room Air Oxygen Flow Rate 01/20/25 12:00 01/20/25 14:00 01/20/25 16:00 Temperature 37.0 C Pulse Rate 75 78 81 Respiratory Rate 16 Blood Pressure 121/72 Pulse Oximetry 96 Oxygen Delivery Oxygen Flow Rate 01/20/25 16:00 Temperature Pulse Rate 75 Respiratory Rate Blood Pressure Pulse Oximetry Oxygen Delivery Oxygen Flow Rate Intake/Output Intake/Output: Intake & Output 01/17/25 01/18/25 01/19/25 01/20/25 23:59 23:59 23:59 23:59 Intake Total 6105.9 593.8 Output Total 2400 850 Balance 3705.9 -256.2 Meds/Results Medications: Active Medications Generic Name Dose Route Start Last Admin Trade Name Freq PRN Reason Stop Dose Admin Acetaminophen 650 mg 01/19/25 19:33 Acetaminophen 325 Mg Tablet PO Q4H PRN Mild Pain (1-3) or Fever Hydrocodone Bitart/Acetaminophen 1 tab 01/19/25 19:33 01/20/25 15:05 Hydrocodone/Acetaminophen (*Crx) 5-325 Mg Tablet PO 1 tab Q6H PRN Administration Pain Rated 4-6 Hydrocodone Bitart/Acetaminophen 0.5 tab 01/20/25 16:53 Hydrocodone/Acetaminophen (*Crx) 10-325 Mg Tablet PO Q6H PRN pain Albuterol/Ipratropium 3 ml 01/19/25 11:08 Ipratropium 0.5 Mg/Albuterol Sulfate 2.5 Mg Ampul.Neb 3 Ml INHALATION Q6HRT PRN Wheezing Aspirin 81 mg 01/20/25 09:00 01/20/25 09:21 Aspirin 81 Mg Enteric Tablet PO 81 mg QAM [facility] Administration Atorvastatin Calcium 40 mg 01/20/25 09:00 01/20/25 09:21 Atorvastatin 40 Mg Tablet PO 40 mg DAILY [facility] Administration Atorvastatin Calcium 40 mg 01/20/25 21:00 Atorvastatin 40 Mg Tablet PO QHS [facility] Baclofen 0 mg 01/20/25 16:55 Baclofen 10 Mg Tablet BY MOUTH .COMPLEX [facility] Dextrose 12.5 gm 01/19/25 11:10 Dextrose 50% 25 Gm/50 Ml Syringe IV PUSH PRN PRN Hypoglycemia Protocol Ergocalciferol mcg 02/19/25 09:00 Ergocalciferol (Vitamin D2) 1,250 Mcg (50,000 Units) Capsule PO MONTHLY [facility] Folic Acid 1 mg 01/21/25 09:00 Folic Acid 1 Mg Tablet PO DAILY [facility] Furosemide 40 mg 01/21/25 09:00 Furosemide 40 Mg Tablet PO DAILY [facility] Glucagon 1 mg 01/19/25 11:10 Glucagon For Inj 1 Mg Vial IM PRN PRN Hypoglycemia Protocol Glucose 15 gm 01/19/25 11:10 Glucose Oral Gel 15 Gm Of Glucse In 37.5 Gm Tube PO PRN PRN Hypoglycemia Protocol Meropenem 1 gm/ Sodium 100 mls @ 200 mls/hr 01/19/25 18:00 01/20/25 09:20 Chloride IVPB 200 mls/hr Q8H [facility] Administration Dextrose 1,000 mls @ 100 mls/hr 01/19/25 11:10 Dextrose 5% 1,000 Ml IVPB PRN PRN Hypoglycemia Protocol Insulin Aspart 3 - 6 units 01/20/25 11:30 01/20/25 16:23 Insulin Aspart (*Bkc) 100 Units/Ml SUB-Q Not Given ACHS [facility] Protocol Levetiracetam 1,500 mg 01/19/25 11:15 01/20/25 09:21 Levetiracetam 500 Mg Tablet PO 1,500 mg Q12HR [facility] Administration Levetiracetam 0 mg 01/20/25 16:55 Levetiracetam 500 Mg Tablet BY MOUTH .COMPLEX [place] Meclizine HCl 0 mg 01/20/25 16:55 Meclizine Hcl 25 Mg Tablet BY MOUTH .COMPLEX [facility] Methotrexate 0 mg 01/20/25 16:55 Methotrexate 2.5 Mg Tab (*Chemo) BY MOUTH .COMPLEX [facility] Methylprednisolone 4 mg 01/21/25 09:00 Methylprednisolone 4 Mg Tablet PO QAM [facility] Non-Formulary Medication 10 mg 01/21/25 09:00 Solifenacin PO 02/20/25 08:59 DAILY [facility] Pantoprazole Sodium 40 mg 01/19/25 11:15 01/20/25 09:21 Pantoprazole Sodium Iv 40 Mg Vial IV PUSH 40 mg QAM [place] Administration Pantoprazole Sodium 0 mg 01/20/25 16:55 Pantoprazole 40 Mg Tablet BY MOUTH .COMPLEX [facility] Potassium Chloride 10 meq 01/21/25 09:00 Potassium Chloride 10 Meq Er Tablet PO DAILY [facility] Potassium Phos/Sodium Phos 1 packet 01/20/25 16:56 Potassium/Phosphorus/Sodium 1.5 Gm Packet PO 01/20/25 16:57 ONCE ONE Pregabalin 150 mg 01/20/25 17:00 Pregabalin (*Crx) 75 Mg Capsule PO TID [facility] Ropinirole HCl 1 mg 01/20/25 21:00 Ropinirole Hcl 1 Mg Tablet PO QHS [facility] Sucralfate 1 gm 01/20/25 16:55 Sucralfate 1 Gm Tablet PO Q6H [facility] Tamsulosin HCl 0.4 mg 01/21/25 09:00 Tamsulosin Hcl 0.4 Mg Capsule PO DAILY [facility] Topiramate 25 mg 01/19/25 21:00 01/19/25 20:02 Topiramate 25 Mg Tablet PO 25 mg QHS [facility] Administration Topiramate 0 mg 01/20/25 16:55 Topiramate 25 Mg Tablet BY MOUTH .COMPLEX [facility] Radiology Results: ITS Impressions Head CT 01/19/25 09:30 IMPRESSION: Cerebral atherosclerosis and chronic small vessel ischemic changes of the cerebral white matter No skull fracture or acute intracranial finding Abdomen/Pelvis CT 01/19/25 11:33 IMPRESSION: 1. Mild right hydronephrosis with urothelial enhancement, suspicious for ascending urinary tract infection. Retrograde Pyelogram 01/19/25 12:18 IMPRESSION: 1. Right internal ureteral stent placement. Please refer to real-time procedural findings for details. Labs Labs: Laboratory Results - last 24 hr 01/19/25 01/19/25 01/19/25 18:16 19:54 23:52 WBC RBC Hgb Hct MCV MCH MCHC RDW Plt Count MPV Immature Gran % (Auto) Neut % (Auto) Lymph % (Auto) [place] % (Auto) Eos % (Auto) Baso % (Auto) Lymph # (Auto) [place] # (Auto) Eos # (Auto) Baso # (Auto) Abs Immat Gran (auto) Absolute Neuts (auto) Absolute Nucleated RBC Band Neutrophils % Nucleated RBC % Platelet Estimate % Immature Plt Fraction Hypochromasia Anisocytosis Inés Cells Schistocytes Sodium 143 Potassium 3.6 Chloride 112 H Carbon Dioxide 22 Anion Gap 9 BUN 13 D Creatinine 0.97 Estim Creat Clear Calc 61 Estimated GFR 59 Glucose 215 H POC Capillary Glucose 172 H 155 H Calcium 8.5 Phosphorus Magnesium Total Bilirubin 1.0 AST 53 H ALT 49 H Alkaline Phosphatase 102 Total Protein 5.3 L Albumin 3.3 L C. difficile (PCR) 01/20/25 01/20/25 01/20/25 03:50 04:55 11:16 WBC 10.6 H RBC 2.64 L Hgb 9.0 L D Hct 27.7 L MCV 104.9 H MCH 34.1 H MCHC 32.5 RDW 16.1 H Plt Count 48 L MPV 12.8 H Immature Gran % (Auto) 0.7 H Neut % (Auto) 78.8 H Lymph % (Auto) 11.2 L [place] % (Auto) 9.0 H Eos % (Auto) 0.0 Baso % (Auto) 0.3 Lymph # (Auto) 1.19 [place] # (Auto) 1.0 H Eos # (Auto) 0.0 Baso # (Auto) 0.0 Abs Immat Gran (auto) 0.07 H Absolute Neuts (auto) 8.4 H Absolute Nucleated RBC 0.000 Band Neutrophils % Not Reportable Nucleated RBC % 0.0 Platelet Estimate Decreased % Immature Plt Fraction 11.1 Hypochromasia 1+ Anisocytosis 1+ [place] Cells 1+ Schistocytes None seen Sodium 147 H Potassium 3.1 L Chloride 113 H Carbon Dioxide 24 Anion Gap 10 BUN 13 Creatinine 0.89 Estim Creat Clear Calc 68 Estimated GFR > 60 Glucose 128 H POC Capillary Glucose 136 H 148 H Calcium 8.5 Phosphorus 2.1 L Magnesium 1.6 Total Bilirubin 0.9 AST 54 H ALT 47 H Alkaline Phosphatase 86 Total Protein 5.2 L Albumin 3.3 L C. difficile (PCR) 01/20/25 01/20/25 13:01 15:46 WBC RBC Hgb Hct MCV MCH MCHC RDW Plt Count MPV Immature Gran % (Auto) Neut % (Auto) Lymph % (Auto) [place] % (Auto) Eos % (Auto) Baso % (Auto) Lymph # (Auto) [place] # (Auto) Eos # (Auto) Baso # (Auto) Abs Immat Gran (auto) Absolute Neuts (auto) Absolute Nucleated RBC Band Neutrophils % Nucleated RBC % Platelet Estimate % Immature Plt Fraction Hypochromasia Anisocytosis [place] Cells Schistocytes Sodium Potassium Chloride Carbon Dioxide Anion Gap BUN Creatinine Estim Creat Clear Calc Estimated GFR Glucose POC Capillary Glucose 153 H Calcium Phosphorus Magnesium Total Bilirubin AST ALT Alkaline Phosphatase Total Protein Albumin C. difficile (PCR) Negative
[2025-01-20] MEDS: POTASSIUM/PHOSPHORUS/SODIUM 1.5 GM PACKET 1 PACKET PO (18:23)
[2025-01-20] MEDS: BACLOFEN 10 MG TABLET BY MOUTH (20:53)
[2025-01-20] MEDS: TOPIRAMATE 25 MG TABLET PO (20:53)
[2025-01-20] MEDS: SUCRALFATE 1 GM TABLET PO (20:53)
[2025-01-20] MEDS: PANTOPRAZOLE 40 MG TABLET BY MOUTH (20:54)
[2025-01-20] MEDS: PREGABALIN (*CRX) 75 MG CAPSULE 150 MG PO (21:00)
[2025-01-21] VITALS (15 sets, daily range): BP systolic 119–141; BP diastolic 69–78; PULSE 72–108; RESP 16–20; TEMP 36.1–36.9; O2SAT 95–100
[2025-01-21] MEDS: MEROPENEM 1 GM in SODIUM CHLORIDE 0.9% IV 100 ML 200 ML IVPB ×3 (02:06→17:02)
[2025-01-21] MEDS: SUCRALFATE 1 GM TABLET PO ×4 (06:02→21:02)
[2025-01-21] MEDS: PREGABALIN (*CRX) 75 MG CAPSULE 150 MG PO ×3 (06:02→21:07)
[2025-01-21 06:06] LABS: Hematocrit 28.1 % (37.0-47.0); Hemoglobin 9.3 g/dL (12.0-15.0); Immature Granulocyte Percent A 1.5 % (0-0.5); Immature Platelet Fraction Pct 17.3 % (0.9-11.2); Lymphocytes Absolute Auto 2.61 K/mm3 (0.9-3.2); Mean Corpuscular HGB Conc 33.1 g/dl (32-36); Mean Corpuscular Hemoglobin 33.9 pg (26-34); Mean Corpuscular Volume 102.6 fl (80-100); Nucleated Red Blood Cells Absolute Auto 0.040 K/mm3 (0.0-0.012); Nucleated Red Blood Cells Perc 0.3 % (0.0-0.2); Platelet Count Result 53 k/mm3 (150-375); Red Blood Count 2.74 M/mm3 (4.2-5.4); White Blood Count 14.6 K/mm3 (4.5-10.0)
[2025-01-21 06:51] LABS: Alanine Aminotransferase 75 U/L (6-35); Albumin Level 3.3 g/dL (3.5-5.1); Alkaline Phosphatase 102 U/L (38-126); Anion Gap 5 mmol/L (4-12); Aspartate Amino Transferase 62 U/L (14-36); Bilirubin,Total 0.8 mg/dL (0.2-1.3); Blood Urea Nitrogen 25 mg/dL (7-17); Calcium 8.6 mg/dL (8.4-10.2); Carbon Dioxide 26 mmol/L (22-30); Chloride 109 mmol/L (98-107); Estimated CRCL calculation 77 ml/min; Estimated Glomerular Filt Rate > 60; Glucose 105 mg/dL (65-110); Magnesium 1.7 mg/dL (1.6-2.3); Potassium 2.8 mmol/L (3.4-5.0); Sodium 140 mmol/L (137-145); Total Protein 5.3 g/dL (6.3-8.2)
--- NOTE | 2025-01-21 07:02 | PC.NURSE ---
Dr Guido aware of critical potassium, as well and current mag and phosphorus level. MD states he will look at labs and enter orders. Dr Guido agreeable to changing time of insulin administration to match mealtimes.
[2025-01-21 07:08] LABS: Anisocytosis 1+
[2025-01-21 07:09] LABS: Schistocytes None Seen
[2025-01-21] MEDS: SOLIFENACIN 5 MG TABLET 10 MG PO (08:31)
[2025-01-21] MEDS: ASPIRIN 81 MG ENTERIC TABLET PO (08:33)
[2025-01-21] MEDS: TAMSULOSIN HCL 0.4 MG CAPSULE PO (08:34)
[2025-01-21] MEDS: POTASSIUM CHLORIDE 20 MEQ PACKET (FOR LIQUID) 40 MEQ PO (08:34)
[2025-01-21] MEDS: POTASSIUM/PHOSPHORUS/SODIUM 1.5 GM PACKET 1 PACKET PO (08:34)
[2025-01-21] MEDS: PANTOPRAZOLE 40 MG TABLET BY MOUTH ×2 (08:34→21:03)
[2025-01-21] MEDS: POTASSIUM CHLORIDE 10 MEQ ER TABLET PO (08:35)
[2025-01-21] MEDS: FUROSEMIDE 40 MG TABLET PO (08:35)
[2025-01-21] MEDS: HYDROcodone/acetaminophen (*CRX) 5-325 MG TABLET 1 TAB PO ×2 (08:35→17:49)
[2025-01-21] MEDS: FOLIC ACID 1 MG TABLET PO (08:36)
[2025-01-21] MEDS: POTASSIUM CHLORIDE INJ 40 MEQ in SODIUM CHLORIDE 0.9% IV 500 ML 130 MEQ IVPB (08:37)
[2025-01-21] MEDS: CENTRAL LINE FLUSH 10 ML IV PUSH ×2 (13:03→21:10)
[2025-01-21 13:19] LABS: Albumin Level 3.4 g/dL (3.5-5.1); Anion Gap 9 mmol/L (4-12); Blood Urea Nitrogen 24 mg/dL (7-17); Calcium 8.7 mg/dL (8.4-10.2); Carbon Dioxide 22 mmol/L (22-30); Chloride 110 mmol/L (98-107); Estimated CRCL calculation 76 ml/min; Estimated Glomerular Filt Rate > 60; Glucose 134 mg/dL (65-110); Magnesium 1.7 mg/dL (1.6-2.3); Potassium 4.0 mmol/L (3.4-5.0); Sodium 141 mmol/L (137-145)
--- NOTE | 2025-01-21 16:13 | PC.NURSE ---
Patients spouse updated that patient is being moved to room 253. Denies further questions.
[2025-01-21] MEDS: TOPIRAMATE 25 MG TABLET BY MOUTH (21:02)
[2025-01-21] MEDS: BACLOFEN 10 MG TABLET BY MOUTH (21:03)
[2025-01-21] MEDS: ATORVASTATIN 40 MG TABLET PO (21:03)
[2025-01-22] VITALS (9 sets, daily range): BP systolic 109–154; BP diastolic 65–89; PULSE 73–89; RESP 16–20; TEMP 36.4–36.8; O2SAT 95–97
--- NOTE | 2025-01-22 00:15 | P.PNCROSS_ITS ---
Event Note Event Note Event Note: The patient called the nurse complaining ?I feel like my potassium is low?. Tommy caro had chest had a potassium and magnesium level obtained at noon demonstrated potassium of 4. Patient had been hypokalemic previously. Her phosphorus level at noon was low at 1.6 despite replacement earlier in the day. Will provide 1 dose of potassium phosphate oral. Patient was also complaining of vaginal itching and burning. One dose of fluconazole 150 mg was ordered.
[2025-01-22] MEDS: FLUCONAZOLE 150 MG TABLET PO (01:04)
[2025-01-22] MEDS: MEROPENEM 1 GM in SODIUM CHLORIDE 0.9% IV 100 ML 200 ML IVPB ×2 (01:04→10:06)
[2025-01-22] MEDS: PREGABALIN (*CRX) 75 MG CAPSULE 150 MG PO ×3 (05:03→21:06)
[2025-01-22] MEDS: CENTRAL LINE FLUSH 10 ML IV PUSH ×2 (05:04→13:08)
[2025-01-22] MEDS: SUCRALFATE 1 GM TABLET PO ×4 (05:04→21:07)
[2025-01-22 05:09] LABS: Hematocrit 28.7 % (37.0-47.0); Hemoglobin 9.7 g/dL (12.0-15.0); Immature Granulocyte Percent A 6.6 % (0-0.5); Immature Platelet Fraction Pct 17.2 % (0.9-11.2); Lymphocytes Absolute Auto 3.16 K/mm3 (0.9-3.2); Mean Corpuscular HGB Conc 33.8 g/dl (32-36); Mean Corpuscular Hemoglobin 34.3 pg (26-34); Mean Corpuscular Volume 101.4 fl (80-100); Nucleated Red Blood Cells Absolute Auto 0.200 K/mm3 (0.0-0.012); Nucleated Red Blood Cells Perc 1.6 % (0.0-0.2); Platelet Count Result 77 k/mm3 (150-375); Red Blood Count 2.83 M/mm3 (4.2-5.4); White Blood Count 12.4 K/mm3 (4.5-10.0)
[2025-01-22 05:30] LABS: Alanine Aminotransferase 59 U/L (6-35); Albumin Level 3.2 g/dL (3.5-5.1); Alkaline Phosphatase 119 U/L (38-126); Anion Gap 6 mmol/L (4-12); Aspartate Amino Transferase 39 U/L (14-36); Bilirubin,Total 0.9 mg/dL (0.2-1.3); Blood Urea Nitrogen 24 mg/dL (7-17); Calcium 8.6 mg/dL (8.4-10.2); Carbon Dioxide 26 mmol/L (22-30); Chloride 105 mmol/L (98-107); Estimated CRCL calculation 78 ml/min; Estimated Glomerular Filt Rate > 60; Glucose 88 mg/dL (65-110); Magnesium 1.8 mg/dL (1.6-2.3); Potassium 3.0 mmol/L (3.4-5.0); Sodium 137 mmol/L (137-145); Total Protein 5.3 g/dL (6.3-8.2)
[2025-01-22 05:33] LABS: Anisocytosis 1+; Burr Cells 1+; Microcytosis 1+ (NORMAL); Schistocytes None Seen
[2025-01-22] MEDS: ASPIRIN 81 MG ENTERIC TABLET PO (08:07)
[2025-01-22] MEDS: TAMSULOSIN HCL 0.4 MG CAPSULE PO (08:07)
[2025-01-22] MEDS: POTASSIUM CHLORIDE 10 MEQ ER TABLET PO (08:07)
[2025-01-22] MEDS: SOLIFENACIN 5 MG TABLET 10 MG PO (08:08)
[2025-01-22] MEDS: PANTOPRAZOLE 40 MG TABLET BY MOUTH ×2 (08:08→21:07)
[2025-01-22] MEDS: FOLIC ACID 1 MG TABLET PO (08:08)
[2025-01-22] MEDS: FUROSEMIDE 40 MG TABLET PO (08:08)
[2025-01-22] MEDS: POTASSIUM CHLORIDE 20 MEQ PACKET (FOR LIQUID) 40 MEQ PO (08:09)
[2025-01-22] MEDS: PANTOPRAZOLE SODIUM IV 40 MG VIAL IV PUSH (08:14)
[2025-01-22] MEDS: ONDANSETRON INJ 4 MG/2 ML VIAL IV PUSH ×3 (08:28→21:09)
--- NOTE | 2025-01-22 08:49 | P.PNUR_ITS ---
Progress Note: A&P Assessment and Plan (1) Hydronephrosis, right: Code(s): N13.30 - Unspecified hydronephrosis Status: Acute Plan * Tolerating right ureteral stent reasonably well. Will plan to leave it for 7-10 days prior to out patient removal in our office. * Long catheter out for voiding trial * Antibiotic therapy per hospitalist service Subjective Subjective Date/Time Seen: 01/22/25 08:49 Interval history: Seems to be tolerating her right ureteral stent better than last time Review of Systems Review of Systems: All systems reviewed & are unremarkable except as noted in HPI and below Exam Const: General: no acute distress Resp: Effort & Inspection: normal respiratory effort GI: Inspection: non-distended GI Palp: No abdominal tenderness and No Guarding due to palpation present (GI) Auscultation: normal bowel sounds Urinary Catheter: Urinary Catheter: patent and draining and urine clear Objective Data Vital Signs Vital Signs: Vital Signs - 24 hr 01/21/25 10:00 01/21/25 11:43 01/21/25 12:00 Temperature 98.0 F Pulse Rate 108 H 96 96 Respiratory Rate 18 18 Blood Pressure 135/78 Pulse Oximetry 99 99 Oxygen Delivery Room Air 01/21/25 12:00 01/21/25 16:00 01/21/25 16:00 Temperature 98.4 F Pulse Rate 83 80 91 Respiratory Rate 16 Blood Pressure 124/72 Pulse Oximetry 99 Oxygen Delivery 01/21/25 16:56 01/21/25 20:00 01/21/25 20:00 Temperature 97.2 F L Pulse Rate 88 82 Respiratory Rate 20 Blood Pressure 119/69 Pulse Oximetry 100 Oxygen Delivery Room Air 01/21/25 21:47 01/22/25 00:00 01/22/25 00:15 Temperature 97 F L 98.2 F Pulse Rate 85 78 79 Respiratory Rate 18 20 Blood Pressure 128/77 154/89 H Pulse Oximetry 99 96 Oxygen Delivery 01/22/25 04:00 01/22/25 05:12 Temperature 97.7 F Pulse Rate 73 84 Respiratory Rate 18 Blood Pressure 143/65 H Pulse Oximetry 97 Oxygen Delivery Intake/Output Intake/Output: Intake & Output 01/19/25 01/20/25 01/21/25 01/22/25 23:59 23:59 23:59 23:59 Intake Total 6105.9 1383.8 2700 350 Output Total 2400 1150 4150 400 Balance 3705.9 233.8 -5996 -06 Meds/Results Medications: Active Medications Generic Name Dose Route Start Last Admin Trade Name Freq PRN Reason Stop Dose Admin Acetaminophen 650 mg 01/19/25 19:33 Acetaminophen 325 Mg Tablet PO Q4H PRN Mild Pain (1-3) or Fever Hydrocodone Bitart/Acetaminophen 1 tab 01/20/25 17:09 01/21/25 17:49 Hydrocodone/Acetaminophen (*Crx) 5-325 Mg Tablet PO 1 tab Q6H PRN Administration Pain Rated 4-6 Albuterol/Ipratropium 3 ml 01/19/25 11:08 Ipratropium 0.5 Mg/Albuterol Sulfate 2.5 Mg Ampul.Neb 3 Ml INHALATION Q6HRT PRN Wheezing Artificial Tears 1 drop 01/21/25 12:40 Artificial Tears Ophth Soln 15 Ml Bottle EACH EYE QHS PRN Dry Eye(s) Aspirin 81 mg 01/20/25 09:00 01/22/25 08:07 Aspirin 81 Mg Enteric Tablet PO 81 mg QAM [place] Administration Atorvastatin Calcium 40 mg 01/21/25 21:00 01/21/25 21:03 Atorvastatin 40 Mg Tablet PO 40 mg QHS [facility] Administration Baclofen 10 mg 01/20/25 21:00 01/21/25 21:03 Baclofen 10 Mg Tablet BY MOUTH 10 mg HS [facility] Administration Dextrose 12.5 gm 01/19/25 11:10 Dextrose 50% 25 Gm/50 Ml Syringe IV PUSH PRN PRN Hypoglycemia Protocol Ergocalciferol 1,250 mcg 02/01/25 09:00 Ergocalciferol (Vitamin D2) 1,250 Mcg (50,000 Units) Capsule PO Q30D [facility] Folic Acid 1 mg 01/21/25 09:00 01/22/25 08:08 Folic Acid 1 Mg Tablet PO 1 mg DAILY [facility] Administration Furosemide 40 mg 01/21/25 09:00 01/22/25 08:08 Furosemide 40 Mg Tablet PO 40 mg DAILY [facility] Administration Glucagon 1 mg 01/19/25 11:10 Glucagon For Inj 1 Mg Vial IM PRN PRN Hypoglycemia Protocol Glucose 15 gm 01/19/25 11:10 Glucose Oral Gel 15 Gm Of Glucse In 37.5 Gm Tube PO PRN PRN Hypoglycemia Protocol Meropenem 1 gm/ Sodium 100 mls @ 200 mls/hr 01/19/25 18:00 01/22/25 01:42 Chloride IVPB Infused Q8H [facility] Infusion Dextrose 1,000 mls @ 100 mls/hr 01/19/25 11:10 Dextrose 5% 1,000 Ml IVPB PRN PRN Hypoglycemia Protocol Insulin Aspart 3 - 6 units 01/21/25 08:00 01/21/25 16:55 Insulin Aspart (*Bkc) 100 Units/Ml SUB-Q Not Given TIDWM [facility] Protocol Insulin Aspart 1 - 3 units 01/21/25 21:00 01/21/25 21:04 Insulin Aspart (*Bkc) 100 Units/Ml SUB-Q Not Given HS [facility] Protocol Levetiracetam 1,500 mg 01/20/25 21:00 01/22/25 08:08 Levetiracetam 500 Mg Tablet BY MOUTH 1,500 mg Q12HR [facility] Administration Meclizine HCl 25 mg 01/20/25 17:12 Meclizine Hcl 25 Mg Tablet BY MOUTH QID PRN Dizziness Methotrexate 7.5 mg 01/27/25 18:00 Methotrexate 2.5 Mg Tab (*Chemo) BY MOUTH Padilla@1800 [facility] Methylprednisolone 4 mg 01/21/25 09:00 01/22/25 08:07 Methylprednisolone 4 Mg Tablet PO 4 mg QAM [place] Administration Miscellaneous Information 1 each 01/21/25 00:01 01/21/25 13:02 Order Clarification -Semaglutide [Ozempic] 2 Mg/3 Ml Pen Injector XX 02/20/25 00:00 Not Given CLARIFY [facility] Non-Formulary Medication 0.5 mg 01/28/25 09:00 Semaglutide [Ozempic] SUB-Q 02/27/25 08:59 WEEKLY [place] Ondansetron HCl 4 mg 01/20/25 17:04 01/22/25 08:28 Ondansetron Inj 4 Mg/2 Ml Vial IV PUSH 4 mg Q4H PRN Administration Nausea And Vomiting Pantoprazole Sodium 40 mg 01/19/25 11:15 01/22/25 08:14 Pantoprazole Sodium Iv 40 Mg Vial IV PUSH 40 mg QAM [place] Administration Pantoprazole Sodium 40 mg 01/20/25 21:00 01/22/25 08:08 Pantoprazole 40 Mg Tablet BY MOUTH 40 mg Q12HR [place] Administration Polyethylene Glycol 17 gm 01/21/25 12:35 Polyethylene Glycol 3350 17 Gm Powd.Pack PO QAM PRN CONSTIPATION Potassium Chloride 10 meq 01/21/25 09:00 01/22/25 08:07 Potassium Chloride 10 Meq Er Tablet PO 10 meq DAILY [facility] Administration Pregabalin 150 mg 01/20/25 22:00 01/22/25 05:03 Pregabalin (*Crx) 75 Mg Capsule PO 150 mg Q8HR [place] Administration Ropinirole HCl 1 mg 01/20/25 21:00 01/21/25 21:02 Ropinirole Hcl 1 Mg Tablet PO 1 mg QHS [facility] Administration Sodium Chloride 10 ml 01/21/25 14:00 01/22/25 05:04 Central Line Flush IV PUSH 10 ml Q8HR [place] Administration Sodium Chloride 20 ml 01/21/25 06:22 Central Line Flush IV PUSH PRN PRN after blood draws Solifenacin 10 mg 01/21/25 09:00 01/22/25 08:08 Solifenacin 5 Mg Tablet PO 10 mg QAM [place] Administration Sucralfate 1 gm 01/20/25 21:00 01/22/25 05:04 Sucralfate 1 Gm Tablet PO 1 gm ACHS [facility] Administration Tamsulosin HCl 0.4 mg 01/21/25 09:00 01/22/25 08:07 Tamsulosin Hcl 0.4 Mg Capsule PO 0.4 mg DAILY [facility] Administration Topiramate 25 mg 01/20/25 21:00 01/21/25 21:02 Topiramate 25 Mg Tablet BY MOUTH 25 mg HS [facility] Administration Radiology Results: ITS Impressions Head CT 01/19/25 09:30 IMPRESSION: Cerebral atherosclerosis and chronic small vessel ischemic changes of the cerebral white matter No skull fracture or acute intracranial finding Abdomen/Pelvis CT 01/19/25 11:33 IMPRESSION: 1. Mild right hydronephrosis with urothelial enhancement, suspicious for ascending urinary tract infection. Retrograde Pyelogram 01/19/25 12:18 IMPRESSION: 1. Right internal ureteral stent placement. Please refer to real-time procedural findings for details. Labs Labs: Laboratory Results - last 24 hr 01/21/25 01/21/25 01/21/25 11:10 12:50 16:09 WBC RBC Hgb Hct MCV MCH MCHC RDW Plt Count MPV Immature Gran % (Auto) Neut % (Auto) Lymph % (Auto) [place] % (Auto) Eos % (Auto) Baso % (Auto) Lymph # (Auto) [place] # (Auto) Eos # (Auto) Baso # (Auto) Abs Immat Gran (auto) Absolute Neuts (auto) Absolute Nucleated RBC Band Neutrophils % Nucleated RBC % Platelet Estimate % Immature Plt Fraction Anisocytosis Microcytosis [place] Cells Schistocytes Sodium 141 Potassium 4.0 Chloride 110 H Carbon Dioxide 22 Anion Gap 9 BUN 24 H Creatinine 0.79 Estim Creat Clear Calc 76 Estimated GFR > 60 Glucose 134 H POC Capillary Glucose 99 142 H Calcium 8.7 Phosphorus 1.6 L Magnesium 1.7 Total Bilirubin AST ALT Alkaline Phosphatase Total Protein Albumin 3.4 L 01/21/25 01/22/25 01/22/25 19:48 00:17 05:02 WBC 12.4 H RBC 2.83 L Hgb 9.7 L Hct 28.7 L MCV 101.4 H MCH 34.3 H MCHC 33.8 RDW 15.5 H Plt Count 77 L MPV 13.2 H Immature Gran % (Auto) 6.6 H Neut % (Auto) 57.8 Lymph % (Auto) 25.4 [place] % (Auto) 7.3 Eos % (Auto) 2.2 Baso % (Auto) 0.7 Lymph # (Auto) 3.16 [place] # (Auto) 0.9 H Eos # (Auto) 0.3 Baso # (Auto) 0.1 Abs Immat Gran (auto) 0.82 H Absolute Neuts (auto) 7.2 H Absolute Nucleated RBC 0.200 H Band Neutrophils % Not Reportable Nucleated RBC % 1.6 H Platelet Estimate Decreased % Immature Plt Fraction 17.2 H Anisocytosis 1+ Microcytosis 1+ [place] Cells 1+ Schistocytes None seen Sodium 137 Potassium 3.0 L Chloride 105 Carbon Dioxide 26 Anion Gap 6 BUN 24 H Creatinine 0.77 Estim Creat Clear Calc 78 Estimated GFR > 60 Glucose 88 POC Capillary Glucose 102 101 Calcium 8.6 Phosphorus 2.6 Magnesium 1.8 Total Bilirubin 0.9 AST 39 H ALT 59 H Alkaline Phosphatase 119 Total Protein 5.3 L Albumin 3.2 L 01/22/25 08:25 WBC RBC Hgb Hct MCV MCH MCHC RDW Plt Count MPV Immature Gran % (Auto) Neut % (Auto) Lymph % (Auto) [place] % (Auto) Eos % (Auto) Baso % (Auto) Lymph # (Auto) [place] # (Auto) Eos # (Auto) Baso # (Auto) Abs Immat Gran (auto) Absolute Neuts (auto) Absolute Nucleated RBC Band Neutrophils % Nucleated RBC % Platelet Estimate % Immature Plt Fraction Anisocytosis Microcytosis Inés Cells Schistocytes Sodium Potassium Chloride Carbon Dioxide Anion Gap BUN Creatinine Estim Creat Clear Calc Estimated GFR Glucose POC Capillary Glucose 90 Calcium Phosphorus Magnesium Total Bilirubin AST ALT Alkaline Phosphatase Total Protein Albumin
--- NOTE | 2025-01-22 10:43 | ECG_ITS ---
Test Date: 2025-01-22 11:36:10 Measurements Intervals [place] Rate: 78 P: 26 CT: 142 QRS: 8 QRSD: 85 T: 35 QT: 332 QTc: 380 Interpretive Statements SINUS RHYTHM LOW QRS VOLTAGE IN PRECORDIAL LEADS [QRS DEFLECTION < 1.0 mV IN CHEST LEADS] NONSPECIFIC ST AND T WAVE ABNORMALITY Compared to ECG 01/19/2025 05:57:23 Sinus tachycardia no longer present Electronically Signed On 01-22-2025 17:03:34 CDT by Patrick Bowers M.D.
--- NOTE | 2025-01-22 10:46 | PCPTNOTE ---
Attempted PT evaluation, pt has a femoral line. Waiting for removal of line prior to physical therapy for safe participation in OOB activity. Will follow.
[2025-01-22 12:43] LABS: Potassium 3.5 mmol/L (3.4-5.0)
--- NOTE | 2025-01-22 13:42 | PM.IMHP ---
H&P: HPI History of Present Illness Date/Time: 01/22/25 13:42 Chief Complaint: Fever Narrative: This is late H&P as patient was taken to OR from ER and then transferred to ICU, he was seen by surveillance sensor operator and were assigned as a primary. ER-HPI Narrative: 59-year-old female with a past medical history including seizure disorder, multiple sclerosis, type 2 diabetes, kidney stone history. She was hospitalized at [facility] from January 02 through January 07 for acute encephalopathy and had a kidney stone at that time. She had a ureteral stent placed with urologist Dr. Stanton. Patient was discharged with outpatient Neurology and Urology follow-up. She had a procedure done on the just 2 days ago where she had a cystoscopy with extraction of ureteral stone and removal of the previously mentioned stent. Patient went home after the procedure and EMS was called to scene this morning were patient was feeling unwell, fevers, having reportedly low blood pressures, tachycardic and altered mentation. She was transported BLS and brought to room 12 for evaluation. On arrival she is tachycardic and febrile at 39.4? C, is currently alert oriented x4, answering all questions appropriately not altered. No signs of trauma. She denies any chest pain, abdominal pain, back pain, nausea, vomiting, vision changes urinary complaints. She does states she feels profoundly weak. Septic bundle was initiated given patient's vitals and fever. Patient denies any trauma or injury. Urology note: Allie Buchanan is a 59 year old female known to our practice after presenting to [facility] on 01/03 with an obstructing right proximal ureteral stone. On the days she underwent right ureteral stent placement. Just 2 days ago a right ureteral stent was removed after a successful stone extraction several days prior. She presents to the emergency department with change in mental status. Upon presentation she had a picture of septic shock and CT imaging shows right hydroureteronephrosis to the ureterovesical junction without obvious residual stone. Her did not document fever but she was febrile on presentation to the ER with a temp of 102?. Initially patient was monitored in the [facility] and was taken to OR emergently due to hydronephrosis and fever and right stent was placed and transfer back to ICU. [facility] Past Medical History Medical History (Updated 01/19/25 @ 11:11 by Sukhwinder Tyler MD) Calculus of proximal right ureter Urinary tract infection GERD (gastroesophageal reflux disease) Hepatic steatosis COPD (chronic obstructive pulmonary disease) pulmonary function test 05/09/2019 Sjogrens syndrome Aortic atherosclerosis SLE (systemic lupus erythematosus) Multiple sclerosis Obesity Surgical History Surgical History History of carpal tunnel surgery of left wrist History of cholecystectomy History of total hysterectomy Hx of cystoscopy Family History Family History Father Diabetes mellitus History of multiple strokes Pacemaker Hypertension Liver cancer Heart problem Mother Hypertension History of multiple strokes Diabetes mellitus Other Alzheimer disease Bladder cancer Heart disease Hypothyroid Social History Social History Smoking packs per day: 0.5 Smoking cigarettes per day: 10.0 Years smoked: 5 Smoking pack-years: 2.50 Smoking status: Former smoker Tobacco type: cigarettes Second hand tobacco smoke exposure: No Smoking end date: 07/04/90 Alcohol intake: former Substance use: never Substance use type: does not use Do You Feel Safe in your Home?: Yes Lack of Transportation: No Lack of Food: Never True Current Housing: I Have Housing Concerned About Future Housing: No Difficulty Paying Gas/Electric Bills: No Difficulty Paying for Meds: No Currently Unemployed: No Education: Associate Degree Difficulty w/ Childcare or Family Care: No Living arrangements: with family Occupation/Education: retired Gender identity (if verbalized by the patient): Female Sexual Orientation (if Verbalized by the Patient): Straight or Heterosexual Spiritual care concerns: No Agree to blood products: Yes Meds Home Medications and Allergies Home Medications ?Medication ?Instructions ?Recorded ?Confirmed ?Type aspirin 81 mg tablet 81 mg PO DAILY 10/06/20 01/19/25 History atorvastatin 40 mg tablet 40 mg PO QHS #90 tabs 03/18/24 01/19/25 Rx levetiracetam 500 mg tablet See Rx Instructions .Route 05/24/24 01/19/25 Rx .COMPLEX #540 tabs ergocalciferol (vitamin D2) 1,250 50,000 unit PO MONTHLY #3 caps 09/27/24 01/19/25 Rx mcg (50,000 unit) capsule (Vitamin D2) folic acid 1 mg tablet 1 mg PO DAILY #90 tabs 09/27/24 01/19/25 Rx topiramate 25 mg tablet See Rx Instructions .Route 10/02/24 01/19/25 Rx .COMPLEX #90 tabs meclizine 25 mg tablet See Rx Instructions .Route 10/22/24 01/19/25 Rx .COMPLEX #100 tabs solifenacin 10 mg tablet 10 mg PO DAILY #90 tabs 10/25/24 01/19/25 Rx pregabalin 150 mg capsule 150 mg PO TID #90 caps 11/12/24 01/19/25 Rx methotrexate sodium 2.5 mg tablet See Rx Instructions .Route 11/22/24 01/19/25 Rx .COMPLEX #39 tabs pantoprazole 40 mg tablet,delayed See Rx Instructions .Route 11/27/24 01/19/25 Rx release .COMPLEX #180 tabs baclofen 20 mg tablet See Rx Instructions .Route 12/02/24 01/19/25 Rx .COMPLEX #90 tabs sucralfate 1 gram tablet 1 g PO Q6H #360 tabs 12/06/24 01/19/25 Rx blood sugar diagnostic (OneTouch #100 ea 01/09/25 01/19/25 Rx Verio test strips) furosemide 40 mg tablet 40 mg PO DAILY 01/10/25 01/19/25 History methylprednisolone 4 mg tablet 4 mg PO QAM 01/10/25 01/19/25 History (Medrol) polyethylene glycol 1 ea miscellaneous PRN PRN 01/10/25 01/19/25 History constipation polyvinyl alcohol-povidone 0.5 1 drp EACH EYE QHS PRN dry eye(s) 01/10/25 01/19/25 History %-0.6 % eye drops semaglutide 0.25 mg or 0.5 mg (2 0.5 mg (0.736 mL) subcut WEEKLY #3 01/10/25 01/19/25 Rx mg/3 mL) subcutaneous pen injector mL (Ozempic) tamsulosin 0.4 mg capsule 0.4 mg PO DAILY 01/10/25 01/19/25 History potassium chloride 10 mEq 10 meq PO DAILY #90 tabs 01/14/25 01/19/25 Rx tablet,extended release (Klor-Con) hydrocodone 10 mg-acetaminophen 0.5 tablet PO Q6H PRN pain #50 tabs 01/16/25 01/19/25 Rx 325 mg tablet lancets 30 gauge (Easy Comfort #100 ea 01/18/25 01/19/25 Rx Lancets) ropinirole 1 mg tablet 1 mg PO QHS #30 tabs 01/18/25 01/19/25 Rx Allergies Allergy/AdvReac Type Severity Reaction Status Date / Time Benzodiazepines AdvReac Intermediate Confusion Verified 01/10/25 12:52 Vital Signs Vital Signs - 24 hr 01/21/25 16:00 01/21/25 16:00 01/21/25 16:56 Temperature 36.9 C 36.2 C L Pulse Rate 80 91 88 Respiratory Rate 16 20 Blood Pressure 124/72 119/69 Pulse Oximetry 99 100 Oxygen Delivery 01/21/25 20:00 01/21/25 20:00 01/21/25 21:47 Temperature 36.1 C L Pulse Rate 82 85 Respiratory Rate 18 Blood Pressure 128/77 Pulse Oximetry 99 Oxygen Delivery Room Air 01/22/25 00:00 01/22/25 00:15 01/22/25 04:00 Temperature 36.8 C Pulse Rate 78 79 73 Respiratory Rate 20 Blood Pressure 154/89 H Pulse Oximetry 96 Oxygen Delivery 01/22/25 05:12 01/22/25 08:08 01/22/25 08:08 Temperature 36.5 C Pulse Rate 84 83 Respiratory Rate 18 Blood Pressure 143/65 H Pulse Oximetry 97 Oxygen Delivery Room Air 01/22/25 12:00 Temperature Pulse Rate 81 Respiratory Rate Blood Pressure Pulse Oximetry Oxygen Delivery Exam Narrative: Morbidly obese Patient is comfortable, NAD HEENT: eyes are clear and none icteric LUNGS:CTA HEART: RR S1S2 ABD: BS+, Soft and nontender Lower extremities: no edema SKIN: nonjaundiced Neuro: grossly intact. H&P: Results Labs Labs: Short CBC 01/22/25 Range/Units 05:02 WBC 12.4 H (4.5-10.0) K/mm3 Hgb 9.7 L (12.0-15.0) g/dL Hct 28.7 L (37.0-47.0) % Plt Count 77 L (150-375) k/mm3 [facility] 01/22/25 01/22/25 05:02 12:18 Sodium 137 Potassium 3.0 L 3.5 Chloride 105 Carbon Dioxide 26 BUN 24 H Creatinine 0.77 Glucose 88 Calcium 8.6 Liver Function 01/22/25 Range/Units 05:02 Total Bilirubin 0.9 (0.2-1.3) mg/dL AST 39 H (14-36) U/L ALT 59 H (6-35) U/L Alkaline Phosphatase 119 (38-126) U/L Albumin 3.2 L (3.5-5.1) g/dL Assessment and Plan Assessment and plan (1) Septic shock: Code(s): A41.9 - Sepsis, unspecified organism; R65.21 - Severe sepsis with septic shock Status: Acute (2) Calculus of proximal right ureter: Code(s): N20.1 - Calculus of ureter Status: Acute (3) Seizures: Code(s): R56.9 - Unspecified convulsions Status: Acute (4) COPD (chronic obstructive pulmonary disease): Code(s): J44.9 - Chronic obstructive pulmonary disease, unspecified Status: Chronic (5) Thrombocytopenia: Code(s): D69.6 - Thrombocytopenia, unspecified Status: Acute (6) Electrolyte abnormality: Code(s): E87.8 - Other disorders of electrolyte and fluid balance, not elsewhere classified Status: Acute (7) Type 2 diabetes mellitus: Qualifiers: Diabetes mellitus termite renewal inspector insulin use: without termite renewal inspector use Diabetes mellitus complication status: with hyperglycemia Qualified Code(s): E11.65 - Type 2 diabetes mellitus with hyperglycemia Code(s): E11.9 - Type 2 diabetes mellitus without complications Status: Acute Plan [facility] Narrative: 59-year-old female with a past medical history including seizure disorder, multiple sclerosis, type 2 diabetes, kidney stone history. She was hospitalized at [facility] from January 02 through January 07 for acute encephalopathy and had a kidney stone at that time. She had a ureteral stent placed with urologist Dr. Stanton. Patient was discharged with outpatient Neurology and Urology follow-up. She had a procedure done on the just 2 days ago where she had a cystoscopy with extraction of ureteral stone and removal of the previously mentioned stent. Patient went home after the procedure and EMS was called to scene this morning were patient was feeling unwell, fevers, having reportedly low blood pressures, tachycardic and altered mentation. She was transported BLS and brought to room 12 for evaluation. On arrival she is tachycardic and febrile at 39.4? C, is currently alert oriented x4, answering all questions appropriately not altered. No signs of trauma. She denies any chest pain, abdominal pain, back pain, nausea, vomiting, vision changes urinary complaints. She does states she feels profoundly weak. Septic bundle was initiated given patient's vitals and fever. Patient denies any trauma or injury. Urology note: Allie Buchanan is a 59 year old female known to our practice after presenting to [facility] on 01/03 with an obstructing right proximal ureteral stone. On the days she underwent right ureteral stent placement. Just 2 days ago a right ureteral stent was removed after a successful stone extraction several days prior. She presents to the emergency department with change in mental status. Upon presentation she had a picture of septic shock and CT imaging shows right hydroureteronephrosis to the ureterovesical junction without obvious residual stone. Her did not document fever but she was febrile on presentation to the ER with a temp of 102?. Initially patient was monitored in the [facility] and was taken to OR emergently due to hydronephrosis and fever and right stent was placed and transfer back to ICU.
[2025-01-22] MEDS: NEOMYCIN/POLYMYXIN/BACITRACIN OINTMENT PACKET 1 PACKET (13:43)
--- NOTE | 2025-01-22 14:15 | PM.IMPN ---
Progress Note: A&P Assessment and Plan (1) Septic shock: Code(s): A41.9 - Sepsis, unspecified organism; R65.21 - Severe sepsis with septic shock Status: Acute (2) Calculus of proximal right ureter: Code(s): N20.1 - Calculus of ureter Status: Acute (3) Seizures: Code(s): R56.9 - Unspecified convulsions Status: Acute (4) COPD (chronic obstructive pulmonary disease): Code(s): J44.9 - Chronic obstructive pulmonary disease, unspecified Status: Chronic (5) Thrombocytopenia: Code(s): D69.6 - Thrombocytopenia, unspecified Status: Acute (6) Electrolyte abnormality: Code(s): E87.8 - Other disorders of electrolyte and fluid balance, not elsewhere classified Status: Acute (7) Type 2 diabetes mellitus: Qualifiers: Diabetes mellitus fdc insulin use: without fdc use Diabetes mellitus complication status: with hyperglycemia Qualified Code(s): E11.65 - Type 2 diabetes mellitus with hyperglycemia Code(s): E11.9 - Type 2 diabetes mellitus without complications Status: Acute Plan ER-HPI Narrative: 59-year-old female with a past medical history including seizure disorder, multiple sclerosis, type 2 diabetes, kidney stone history. She was hospitalized at [facility] from January 02 through January 07 for acute encephalopathy and had a kidney stone at that time. She had a ureteral stent placed with urologist Dr. Stanton. Patient was discharged with outpatient Neurology and Urology follow-up. She had a procedure done on the just 2 days ago where she had a cystoscopy with extraction of ureteral stone and removal of the previously mentioned stent. Patient went home after the procedure and EMS was called to scene this morning were patient was feeling unwell, fevers, having reportedly low blood pressures, tachycardic and altered mentation. She was transported BLS and brought to room 12 for evaluation. On arrival she is tachycardic and febrile at 39.4? C, is currently alert oriented x4, answering all questions appropriately not altered. No signs of trauma. She denies any chest pain, abdominal pain, back pain, nausea, vomiting, vision changes urinary complaints. She does states she feels profoundly weak. Septic bundle was initiated given patient's vitals and fever. Patient denies any trauma or injury. Urology note: Allie Buchanan is a 59 year old female known to our practice after presenting to [facility] on 01/03 with an obstructing right proximal ureteral stone. On the days she underwent right ureteral stent placement. Just 2 days ago a right ureteral stent was removed after a successful stone extraction several days prior. She presents to the emergency department with change in mental status. Upon presentation she had a picture of septic shock and CT imaging shows right hydroureteronephrosis to the ureterovesical junction without obvious residual stone. Her did not document fever but she was febrile on presentation to the ER with a temp of 102?. Initially patient was monitored in the IU and was taken to OR emergently due to hydronephrosis and fever and right stent was placed and transfer back to ICU. patient is now out of ICU and transferred to IMU, patient was having loose BM and was tested for C diff, and it was negative, patient stats feels better, he BM have improved, and pain pelvic right flank has improved. Denies any fever or chills, her is present in the room, will continue will follow up on urine and blood culture. Subjective Date/time seen: 01/21/25 14:15 Interval history: ER-HPI Narrative: 59-year-old female with a past medical history including seizure disorder, multiple sclerosis, type 2 diabetes, kidney stone history. She was hospitalized at [facility] from January 02 through January 07 for acute encephalopathy and had a kidney stone at that time. She had a ureteral stent placed with urologist Dr. Stanton. Patient was discharged with outpatient Neurology and Urology follow-up. She had a procedure done on the just 2 days ago where she had a cystoscopy with extraction of ureteral stone and removal of the previously mentioned stent. Patient went home after the procedure and EMS was called to scene this morning were patient was feeling unwell, fevers, having reportedly low blood pressures, tachycardic and altered mentation. She was transported BLS and brought to room 12 for evaluation. On arrival she is tachycardic and febrile at 39.4? C, is currently alert oriented x4, answering all questions appropriately not altered. No signs of trauma. She denies any chest pain, abdominal pain, back pain, nausea, vomiting, vision changes urinary complaints. She does states she feels profoundly weak. Septic bundle was initiated given patient's vitals and fever. Patient denies any trauma or injury. Urology note: Allie Buchanan is a 59 year old female known to our practice after presenting to [facility] on 01/03 with an obstructing right proximal ureteral stone. On the days she underwent right ureteral stent placement. Just 2 days ago a right ureteral stent was removed after a successful stone extraction several days prior. She presents to the emergency department with change in mental status. Upon presentation she had a picture of septic shock and CT imaging shows right hydroureteronephrosis to the ureterovesical junction without obvious residual stone. Her did not document fever but she was febrile on presentation to the ER with a temp of 102?. Initially patient was monitored in the [facility] and was taken to OR emergently due to hydronephrosis and fever and right stent was placed and transfer back to ICU. patient is now out of ICU and transferred to IMU, patient was having loose BM and was tested for C diff, and it was negative, patient stats feels better, he BM have improved, and pain pelvic right flank has improved. Denies any fever or chills, her is present in the room, will continue will follow up on urine and blood culture. Review of Systems Review of Systems: All systems reviewed & are unremarkable except as noted in HPI and below (HPI) Exam Narrative: Morbidly obese Patient is comfortable, NAD HEENT: eyes are clear and none icteric LUNGS:CTA HEART: RR S1S2 ABD: BS+, Soft and nontender Lower extremities: no edema SKIN: nonjaundiced Neuro: grossly intact. Objective Data Vital Signs Vital Signs: Vital Signs - 24 hr 01/21/25 16:00 01/21/25 16:00 01/21/25 16:56 Temperature 36.9 C 36.2 C L Pulse Rate 80 91 88 Respiratory Rate 16 20 Blood Pressure 124/72 119/69 Pulse Oximetry 99 100 Oxygen Delivery 01/21/25 20:00 01/21/25 20:00 01/21/25 21:47 Temperature 36.1 C L Pulse Rate 82 85 Respiratory Rate 18 Blood Pressure 128/77 Pulse Oximetry 99 Oxygen Delivery Room Air 01/22/25 00:00 01/22/25 00:15 01/22/25 04:00 Temperature 36.8 C Pulse Rate 78 79 73 Respiratory Rate 20 Blood Pressure 154/89 H Pulse Oximetry 96 Oxygen Delivery 01/22/25 05:12 01/22/25 08:08 01/22/25 08:08 Temperature 36.5 C Pulse Rate 84 83 Respiratory Rate 18 Blood Pressure 143/65 H Pulse Oximetry 97 Oxygen Delivery Room Air 01/22/25 12:00 Temperature Pulse Rate 81 Respiratory Rate Blood Pressure Pulse Oximetry Oxygen Delivery Intake/Output Intake/Output: Intake & Output 01/19/25 01/20/25 01/21/25 01/22/25 23:59 23:59 23:59 23:59 Intake Total 6105.9 1383.8 2700 750 Output Total 2400 1150 4150 2400 Balance 3705.9 233.8 -5190 -1650 Meds/Results Medications: Active Medications Generic Name Dose Route Start Last Admin Trade Name Freq PRN Reason Stop Dose Admin Acetaminophen 650 mg 01/19/25 19:33 Acetaminophen 325 Mg Tablet PO Q4H PRN Mild Pain (1-3) or Fever Hydrocodone Bitart/Acetaminophen 1 tab 01/20/25 17:09 01/21/25 17:49 Hydrocodone/Acetaminophen (*Crx) 5-325 Mg Tablet PO 1 tab Q6H PRN Administration Pain Rated 4-6 Albuterol/Ipratropium 3 ml 01/19/25 11:08 Ipratropium 0.5 Mg/Albuterol Sulfate 2.5 Mg Ampul.Neb 3 Ml INHALATION Q6HRT PRN Wheezing Artificial Tears 1 drop 01/21/25 12:40 Artificial Tears Ophth Soln 15 Ml Bottle EACH EYE QHS PRN Dry Eye(s) Aspirin 81 mg 01/20/25 09:00 01/22/25 08:07 Aspirin 81 Mg Enteric Tablet PO 81 mg QAM AINSLEY Administration Atorvastatin Calcium 40 mg 01/21/25 21:00 01/21/25 21:03 Atorvastatin 40 Mg Tablet PO 40 mg QHS AINSLEY Administration Baclofen 10 mg 01/20/25 21:00 01/21/25 21:03 Baclofen 10 Mg Tablet BY MOUTH 10 mg HS AINSLEY Administration Dextrose 12.5 gm 01/19/25 11:10 Dextrose 50% 25 Gm/50 Ml Syringe IV PUSH PRN PRN Hypoglycemia Protocol Ergocalciferol 1,250 mcg 02/01/25 09:00 Ergocalciferol (Vitamin D2) 1,250 Mcg (50,000 Units) Capsule PO Q30D AINSLEY Folic Acid 1 mg 01/21/25 09:00 01/22/25 08:08 Folic Acid 1 Mg Tablet PO 1 mg DAILY AINSLEY Administration Furosemide 40 mg 01/21/25 09:00 01/22/25 08:08 Furosemide 40 Mg Tablet PO 40 mg DAILY AINSLEY Administration Glucagon 1 mg 01/19/25 11:10 Glucagon For Inj 1 Mg Vial IM PRN PRN Hypoglycemia Protocol Glucose 15 gm 01/19/25 11:10 Glucose Oral Gel 15 Gm Of Glucse In 37.5 Gm Tube PO PRN PRN Hypoglycemia Protocol Meropenem 1 gm/ Sodium 100 mls @ 200 mls/hr 01/19/25 18:00 01/22/25 10:36 Chloride IVPB Infused Q8H AINSLEY Infusion Dextrose 1,000 mls @ 100 mls/hr 01/19/25 11:10 Dextrose 5% 1,000 Ml IVPB PRN PRN Hypoglycemia Protocol Insulin Aspart 3 - 6 units 01/21/25 08:00 01/22/25 12:56 Insulin Aspart (*Bkc) 100 Units/Ml SUB-Q Not Given TIDWM AINSLEY Protocol Insulin Aspart 1 - 3 units 01/21/25 21:00 01/21/25 21:04 Insulin Aspart (*Bkc) 100 Units/Ml SUB-Q Not Given HS AINSLEY Protocol Levetiracetam 1,500 mg 01/20/25 21:00 01/22/25 08:08 Levetiracetam 500 Mg Tablet BY MOUTH 1,500 mg Q12HR AINSLEY Administration Meclizine HCl 25 mg 01/20/25 17:12 Meclizine Hcl 25 Mg Tablet BY MOUTH QID PRN Dizziness Methotrexate 7.5 mg 01/27/25 18:00 Methotrexate 2.5 Mg Tab (*Chemo) BY MOUTH Padilla@1800 AINSLEY Methylprednisolone 4 mg 01/21/25 09:00 01/22/25 08:07 Methylprednisolone 4 Mg Tablet PO 4 mg QAM AINSLEY Administration Miscellaneous Information 1 each 01/21/25 00:01 01/21/25 13:02 Order Clarification -Semaglutide [Ozempic] 2 Mg/3 Ml Pen Injector XX 02/20/25 00:00 Not Given CLARIFY AINSLEY Non-Formulary Medication 0.5 mg 01/28/25 09:00 Semaglutide [Ozempic] SUB-Q 02/27/25 08:59 WEEKLY AINSLEY Ondansetron HCl 4 mg 01/20/25 17:04 01/22/25 13:05 Ondansetron Inj 4 Mg/2 Ml Vial IV PUSH 4 mg Q4H PRN Administration Nausea And Vomiting Pantoprazole Sodium 40 mg 01/19/25 11:15 01/22/25 08:14 Pantoprazole Sodium Iv 40 Mg Vial IV PUSH 40 mg QAM AINSLEY Administration Pantoprazole Sodium 40 mg 01/20/25 21:00 01/22/25 08:08 Pantoprazole 40 Mg Tablet BY MOUTH 40 mg Q12HR AINSLEY Administration Polyethylene Glycol 17 gm 01/21/25 12:35 Polyethylene Glycol 3350 17 Gm Powd.Pack PO QAM PRN CONSTIPATION Potassium Chloride 10 meq 01/21/25 09:00 01/22/25 08:07 Potassium Chloride 10 Meq Er Tablet PO 10 meq DAILY AINSLEY Administration Pregabalin 150 mg 01/20/25 22:00 01/22/25 13:43 Pregabalin (*Crx) 75 Mg Capsule PO 150 mg Q8HR AINSLEY Administration Ropinirole HCl 1 mg 01/20/25 21:00 01/21/25 21:02 Ropinirole Hcl 1 Mg Tablet PO 1 mg QHS AINSLEY Administration Sodium Chloride 10 ml 01/21/25 14:00 01/22/25 13:08 Central Line Flush IV PUSH 10 ml Q8HR AINSLEY Administration Sodium Chloride 20 ml 01/21/25 06:22 Central Line Flush IV PUSH PRN PRN after blood draws Solifenacin 10 mg 01/21/25 09:00 01/22/25 08:08 Solifenacin 5 Mg Tablet PO 10 mg QAM AINSLEY Administration Sucralfate 1 gm 01/20/25 21:00 01/22/25 12:06 Sucralfate 1 Gm Tablet PO 1 gm ACHS AINSLEY Administration Tamsulosin HCl 0.4 mg 01/21/25 09:00 01/22/25 08:07 Tamsulosin Hcl 0.4 Mg Capsule PO 0.4 mg DAILY AINSLEY Administration Topiramate 25 mg 01/20/25 21:00 01/21/25 21:02 Topiramate 25 Mg Tablet BY MOUTH 25 mg HS AINSLEY Administration Radiology Results: ITS Impressions Head CT 01/19/25 09:30 IMPRESSION: Cerebral atherosclerosis and chronic small vessel ischemic changes of the cerebral white matter No skull fracture or acute intracranial finding Abdomen/Pelvis CT 01/19/25 11:33 IMPRESSION: 1. Mild right hydronephrosis with urothelial enhancement, suspicious for ascending urinary tract infection. Retrograde Pyelogram 01/19/25 12:18 IMPRESSION: 1. Right internal ureteral stent placement. Please refer to real-time procedural findings for details. Labs Labs: Laboratory Results - last 24 hr 01/21/25 01/21/25 01/22/25 16:09 19:48 00:17 WBC RBC Hgb Hct MCV MCH MCHC RDW Plt Count MPV Immature Gran % (Auto) Neut % (Auto) Lymph % (Auto) [place] % (Auto) Eos % (Auto) Baso % (Auto) Lymph # (Auto) [place] # (Auto) Eos # (Auto) Baso # (Auto) Abs Immat Gran (auto) Absolute Neuts (auto) Absolute Nucleated RBC Band Neutrophils % Nucleated RBC % Platelet Estimate % Immature Plt Fraction Anisocytosis Microcytosis [place]ridge Cells Schistocytes Sodium Potassium Chloride Carbon Dioxide Anion Gap BUN Creatinine Estim Creat Clear Calc Estimated GFR Glucose POC Capillary Glucose 142 H 102 101 Calcium Phosphorus Magnesium Total Bilirubin AST ALT Alkaline Phosphatase Total Protein Albumin 01/22/25 01/22/25 01/22/25 05:02 08:25 12:02 WBC 12.4 H RBC 2.83 L Hgb 9.7 L Hct 28.7 L MCV 101.4 H MCH 34.3 H MCHC 33.8 RDW 15.5 H Plt Count 77 L MPV 13.2 H Immature Gran % (Auto) 6.6 H Neut % (Auto) 57.8 Lymph % (Auto) 25.4 [place] % (Auto) 7.3 Eos % (Auto) 2.2 Baso % (Auto) 0.7 Lymph # (Auto) 3.16 [place] # (Auto) 0.9 H Eos # (Auto) 0.3 Baso # (Auto) 0.1 Abs Immat Gran (auto) 0.82 H Absolute Neuts (auto) 7.2 H Absolute Nucleated RBC 0.200 H Band Neutrophils % Not Reportable Nucleated RBC % 1.6 H Platelet Estimate Decreased % Immature Plt Fraction 17.2 H Anisocytosis 1+ Microcytosis 1+ [place]ridge Cells 1+ Schistocytes None seen Sodium 137 Potassium 3.0 L Chloride 105 Carbon Dioxide 26 Anion Gap 6 BUN 24 H Creatinine 0.77 Estim Creat Clear Calc 78 Estimated GFR > 60 Glucose 88 POC Capillary Glucose 90 136 H Calcium 8.6 Phosphorus 2.6 Magnesium 1.8 Total Bilirubin 0.9 AST 39 H ALT 59 H Alkaline Phosphatase 119 Total Protein 5.3 L Albumin 3.2 L 01/22/25 12:18 WBC RBC Hgb Hct MCV MCH MCHC RDW Plt Count MPV Immature Gran % (Auto) Neut % (Auto) Lymph % (Auto) [place] % (Auto) Eos % (Auto) Baso % (Auto) Lymph # (Auto) [place] # (Auto) Eos # (Auto) Baso # (Auto) Abs Immat Gran (auto) Absolute Neuts (auto) Absolute Nucleated RBC Band Neutrophils % Nucleated RBC % Platelet Estimate % Immature Plt Fraction Anisocytosis Microcytosis [place] Cells Schistocytes Sodium Potassium 3.5 Chloride Carbon Dioxide Anion Gap BUN Creatinine Estim Creat Clear Calc Estimated GFR Glucose POC Capillary Glucose Calcium Phosphorus Magnesium Total Bilirubin AST ALT Alkaline Phosphatase Total Protein Albumin Quality VTE Prophylaxis VTE prophylaxis: mechanical ordered
--- NOTE | 2025-01-22 14:20 | PCOTNOTE ---
Pt has a femoral line so is not appropriate for mobility at this time. Will continue to follow.
--- NOTE | 2025-01-22 14:24 | P.PNIM_ITS ---
Progress Note: A&P Assessment and Plan (1) Septic shock: Code(s): A41.9 - Sepsis, unspecified organism; R65.21 - Severe sepsis with septic shock Status: Acute (2) Calculus of proximal right ureter: Code(s): N20.1 - Calculus of ureter Status: Acute (3) Seizures: Code(s): R56.9 - Unspecified convulsions Status: Acute (4) COPD (chronic obstructive pulmonary disease): Code(s): J44.9 - Chronic obstructive pulmonary disease, unspecified Status: Chronic (5) Thrombocytopenia: Code(s): D69.6 - Thrombocytopenia, unspecified Status: Acute (6) Electrolyte abnormality: Code(s): E87.8 - Other disorders of electrolyte and fluid balance, not elsewhere classified Status: Acute (7) Type 2 diabetes mellitus: Qualifiers: Diabetes mellitus complication status: with hyperglycemia 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 She was hospitalized at [facility] from January 02 through January 07 for acute encephalopathy and had a kidney stone at that time. She had a ureteral stent placed with urologist Dr. Stanton. Patient was discharged with outpatient Neurology and Urology follow-up. She had a procedure done on the just 2 days ago where she had a cystoscopy with extraction of ureteral stone and removal of the previously mentioned stent. Patient went home after the procedure and EMS was called to scene this morning were patient was feeling unwell, fevers, having reportedly low blood pressures, tachycardic and altered mentation. She was transported BLS and brought to room 12 for evaluation. On arrival she is tachycardic and febrile at 39.4? C, is currently alert oriented x4, answering all questions appropriately not altered. No signs of trauma. She denies any chest pain, abdominal pain, back pain, nausea, vomiting, vision changes urinary complaints. She does states she feels profoundly weak. Septic bundle was initiated given patient's vitals and fever. Patient denies any trauma or injury. Urology note: Allie Buchanan is a 59 year old female known to our practice after presenting to Health system on 01/03 with an obstructing right proximal ureteral stone. On the days she underwent right ureteral stent placement. Just 2 days ago a right ureteral stent was removed after a successful stone extraction several days prior. She presents to the emergency department with change in mental status. Upon presentation she had a picture of septic shock and CT imaging shows right hydroureteronephrosis to the ureterovesical junction without obvious residual stone. Her did not document fever but she was febrile on presentation to the ER with a temp of 102 ?. Initially patient was monitored in the IU and was taken to OR emergently due to hydronephrosis and fever and right stent was placed and transfer back to ICU. patient is now out of ICU and transferred to IMU, patient was having loose BM and was tested for C diff, and it was negative, patient stats feels better, he BM have improved, and pain pelvic right flank has improved. Denies any fever or chills, her is present in the room, will continue will follow up on urine and blood culture. patient was out of ICU and transferred to IMU, patient was having loose BM and was tested for C diff, and it was negative, patient stats feels better, her BM have improved, and pain pelvic right flank has improved. Denies any fever or chills, her is present in the room, her blood culture is growing pseudomonas aeruginosa blum sensitive and being treated meropenem IV, discussed with clinical pharmacy, from tomorrow we can switch patient to oral Abx, today patient was seen by her urologist patient is clinically improving and will need follow up in outpatient clinic in 01-10 for removal of the stent, patient will need avoiding trial before discharge, will have PT/OT evaluate the patient, will monitor patient will benefit with rehab before going home. Subjective Date/time seen: 01/22/25 14:24 Interval history: ER-HPI Narrative: 59-year-old female with a past medical history including seizure disorder, multiple sclerosis, type 2 diabetes, kidney stone history. She was hospitalized at [facility] from January 02 through January 07 for acute encephalopathy and had a kidney stone at that time. She had a ureteral stent pl aced with urologist Dr. Stanton. Patient was discharged with outpatient Neurology and Urology follow-up. She had a procedure done on the just 2 days ago where she had a cystoscopy with extraction of ureteral stone and removal of the previously mentioned stent. Patient went home after the procedure and EMS was called to scene this morning were patient was feeling unwell, fevers, having reportedly low blood pressures, tachycardic and altered mentation. She was transported BLS and brought to room 12 for evaluation. On arrival she is tachycardic and febrile at 39.4? C, is currently alert oriented x4, answering all questions appropriately not altered. No signs of trauma. She denies any chest pain, abdominal pain, back pain, nausea, vomiting, vision changes urinary complaints. She does states she feels profoundly weak. Septic bundle was initiated given patient's vitals and fever. Patient denies any trauma or injury. Urology note: Allie Buchanan is a 59 year old female known to our practice after presenting to Health system on 01/03 with an obstructing right proximal ureteral stone. On the days she underwent right ureteral stent placeme nt. Just 2 days ago a right ureteral stent was removed after a successful stone extraction several days prior. She presents to the emergency department with change in mental status. Upon presentation she had a picture of septic shock and CT imaging shows right hydroureteronephrosis to the ureterovesical junction without obvious residual stone. Her did not document fever but she was febrile on presentation to the ER with a temp of 102?. Initially patient was monitored in the [facility] and was taken to OR emergently due to hydronephrosis and fever and right stent was placed and transfer back to ICU. patient was out of ICU and transferred to IMU, patient was having loose BM and was tested for C diff, and it was negative, patient stats feels better, her BM have improved, and pain pelvic right flank has improved. Denies any fever or chills, her is present in the room, her blood culture is growing pseudomonas aeruginosa blum sensitive and being treated meropenem IV, discussed with clinical pharmacy, from tomorrow we can switch patient to oral Abx, today patient was seen by her urologist patient is clinically improving and will need follow up in outpatient clinic in 01-10 for removal of the stent, patient will need avoiding trial before discharge, will have PT/OT evaluate the patient, will monitor patient will benefit with rehab before going home. Review of Systems Review of Systems: All systems reviewed & are unremarkable except as noted in HPI and below (HPI) Exam Narrative: Morbidly obese Patient is comfortable, NAD HEENT: eyes are clear and none icteric LUNGS:CTA HEART: RR S1S2 ABD: BS+, Soft and nontender Lower extremities: no edema SKIN: nonjaundiced Neuro: grossly intact. Objective Data Vital Signs Vital Signs: Vital Signs - 24 hr 01/21/25 16:00 01/21/25 16:00 01/21/25 16:56 Temperature 36.9 C 36.2 C L Pulse Rate 80 91 88 Respiratory Rate 16 20 Blood Pressure 124/72 119/69 Pulse Oximetry 99 100 Oxygen Delivery 01/21/25 20:00 01/21/25 20:00 01/21/25 21:47 Temperature 36.1 C L Pulse Rate 82 85 Respiratory Rate 18 Blood Pressure 128/77 Pulse Oximetry 99 Oxygen Delivery Room Air 01/22/25 00:00 01/22/25 00:15 01/22/25 04:00 Temperature 36.8 C Pulse Rate 78 79 73 Respiratory Rate 20 Blood Pressure 154/89 H Pulse Oximetry 96 Oxygen Delivery 01/22/25 05:12 01/22/25 08:08 01/22/25 08:08 Temperature 36.5 C Pulse Rate 84 83 Respiratory Rate 18 Blood Pressure 143/65 H Pulse Oximetry 97 Oxygen Delivery Room Air 01/22/25 12:00 Temperature Pulse Rate 81 Respiratory Rate Blood Pressure Pulse Oximetry Oxygen Delivery Intake/Output Intake/Output: Intake & Output 01/19/25 01/20/25 01/21/25 01/22/25 23:59 23:59 23:59 23:59 Intake Total 6105.9 1383.8 2700 750 Output Total 2400 1150 4150 2400 Balance 3705.9 233.8 -1450 -1650 Meds/Results Medications: Active Medications Generic Name Dose Route Start Last Admin Trade Name Freq PRN Reason Stop Dose Admin Acetaminophen 650 mg 01/19/25 19:33 Acetaminophen 325 Mg Tablet PO Q4H PRN Mild Pain (1-3) or Fever Hydrocodone Bitart/Acetaminophen 1 tab 01/20/25 17:09 01/21/25 17:49 Hydrocodone/Acetaminophen (*Crx) 5-325 Mg Tablet PO 1 tab Q6H PRN Administration Pain Rated 4-6 Albuterol/Ipratropium 3 ml 01/19/25 11:08 Ipratropium 0.5 Mg/Albuterol Sulfate 2.5 Mg Ampul.Neb 3 Ml INHALATION Q6HRT PRN Wheezing Artificial Tears 1 drop 01/21/25 12:40 Artificial Tears Ophth Soln 15 Ml Bottle EACH EYE QHS PRN Dry Eye(s) Aspirin 81 mg 01/20/25 09:00 01/22/25 08:07 Aspirin 81 Mg Enteric Tablet PO 81 mg QAM AINSLEY Administration Atorvastatin Calcium 40 mg 01/21/25 21:00 01/21/25 21:03 Atorvastatin 40 Mg Tablet PO 40 mg QHS AINSLEY Administration Baclofen 10 mg 01/20/25 21:00 01/21/25 21:03 Baclofen 10 Mg Tablet BY MOUTH 10 mg HS AINSLEY Administration Dextrose 12.5 gm 01/19/25 11:10 Dextrose 50% 25 Gm/50 Ml Syringe IV PUSH PRN PRN Hypoglycemia Protocol Ergocalciferol 1,250 mcg 02/01/25 09:00 Ergocalciferol (Vitamin D2) 1,250 Mcg (50,000 Units) Capsule PO Q30D AINSLEY Folic Acid 1 mg 01/21/25 09:00 01/22/25 08:08 Folic Acid 1 Mg Tablet PO 1 mg DAILY AINSLEY Administration Furosemide 40 mg 01/21/25 09:00 01/22/25 08:08 Furosemide 40 Mg Tablet PO 40 mg DAILY AINSLEY Administration Glucagon 1 mg 01/19/25 11:10 Glucagon For Inj 1 Mg Vial IM PRN PRN Hypoglycemia Protocol Glucose 15 gm 01/19/25 11:10 Glucose Oral Gel 15 Gm Of Glucse In 37.5 Gm Tube PO PRN PRN Hypoglycemia Protocol Meropenem 1 gm/ Sodium 100 mls @ 200 mls/hr 01/19/25 18:00 01/22/25 10:36 Chloride IVPB Infused Q8H AINSLEY Infusion Dextrose 1,000 mls @ 100 mls/hr 01/19/25 11:10 Dextrose 5% 1,000 Ml IVPB PRN PRN Hypoglycemia Protocol Insulin Aspart 3 - 6 units 01/21/25 08:00 01/22/25 12:56 Insulin Aspart (*Bkc) 100 Units/Ml SUB-Q Not Given TIDWM AINSLEY Protocol Insulin Aspart 1 - 3 units 01/21/25 21:00 01/21/25 21:04 Insulin Aspart (*Bkc) 100 Units/Ml SUB-Q Not Given HS [facility] Protocol Levetiracetam 1,500 mg 01/20/25 21:00 01/22/25 08:08 Levetiracetam 500 Mg Tablet BY MOUTH 1,500 mg Q12HR AINSLEY Administration Meclizine HCl 25 mg 01/20/25 17:12 Meclizine Hcl 25 Mg Tablet BY MOUTH QID PRN Dizziness Methotrexate 7.5 mg 01/27/25 18:00 Methotrexate 2.5 Mg Tab (*Chemo) BY MOUTH Padilla@1800 AINSLEY Methylprednisolone 4 mg 01/21/25 09:00 01/22/25 08:07 Methylprednisolone 4 Mg Tablet PO 4 mg QAM AINSLEY Administration Miscellaneous Information 1 each 01/21/25 00:01 01/21/25 13:02 Order Clarification -Semaglutide [Ozempic] 2 Mg/3 Ml Pen Injector XX 02/20/25 00:00 Not Given [facility]ARIFY [facility] Non-Formulary Medication 0.5 mg 01/28/25 09:00 Semaglutide [Ozempic] SUB-Q 02/27/25 08:59 WEEKLY AINSLEY Ondansetron HCl 4 mg 01/20/25 17:04 01/22/25 13:05 Ondansetron Inj 4 Mg/2 Ml Vial IV PUSH 4 mg Q4H PRN Administration Nausea And Vomiting Pantoprazole Sodium 40 mg 01/19/25 11:15 01/22/25 08:14 Pantoprazole Sodium Iv 40 Mg Vial IV PUSH 40 mg QAM AINSLEY Administration Pantoprazole Sodium 40 mg 01/20/25 21:00 01/22/25 08:08 Pantoprazole 40 Mg Tablet BY MOUTH 40 mg Q12HR AINSLEY Administration Polyethylene Glycol 17 gm 01/21/25 12:35 Polyethylene Glycol 3350 17 Gm Powd.Pack PO QAM PRN CONSTIPATION Potassium Chloride 10 meq 01/21/25 09:00 01/22/25 08:07 Potassium Chloride 10 Meq Er Tablet PO 10 meq DAILY AINSLEY Administration Pregabalin 150 mg 01/20/25 22:00 01/22/25 13:43 Pregabalin (*Crx) 75 Mg Capsule PO 150 mg Q8HR AINSLEY Administration Ropinirole HCl 1 mg 01/20/25 21:00 01/21/25 21:02 Ropinirole Hcl 1 Mg Tablet PO 1 mg QHS AINSLEY Administration Sodium Chloride 10 ml 01/21/25 14:00 01/22/25 13:08 Central Line Flush IV PUSH 10 ml Q8HR AINSLEY Administration Sodium Chloride 20 ml 01/21/25 06:22 Central Line Flush IV PUSH PRN PRN after blood draws Solifenacin 10 mg 01/21/25 09:00 01/22/25 08:08 Solifenacin 5 Mg Tablet PO 10 mg QAM AINSLEY Administration Sucralfate 1 gm 01/20/25 21:00 01/22/25 12:06 Sucralfate 1 Gm Tablet PO 1 gm ACHS AINSLEY Administration Tamsulosin HCl 0.4 mg 01/21/25 09:00 01/22/25 08:07 Tamsulosin Hcl 0.4 Mg Capsule PO 0.4 mg DAILY AINSLEY Administration Topiramate 25 mg 01/20/25 21:00 01/21/25 21:02 Topiramate 25 Mg Tablet BY MOUTH 25 mg HS AINSLEY Administration Radiology Results: ITS Impressions Head CT 01/19/25 09:30 IMPRESSION: Cerebral atherosclerosis and chronic small vessel ischemic changes of the cerebral white matter No skull fracture or acute intracranial finding Abdomen/Pelvis CT 01/19/25 11:33 IMPRESSION: 1. Mild right hydronephrosis with urothelial enhancement, suspicious for ascending urinary tract infection. Retrograde Pyelogram 01/19/25 12:18 IMPRESSION: 1. Right internal ureteral stent placement. Please refer to real-time procedural findings for details. Labs Labs: Laboratory Results - last 24 hr 01/21/25 01/21/25 01/22/25 16:09 19:48 00:17 WBC RBC Hgb Hct MCV MCH MCHC RDW Plt Count MPV Immature Gran % (Auto) Neut % (Auto) Lymph % (Auto) [place] % (Auto) Eos % (Auto) Baso % (Auto) Lymph # (Auto) [place] # (Auto) Eos # (Auto) Baso # (Auto) Abs Immat Gran (auto) Absolute Neuts (auto) Absolute Nucleated RBC Band Neutrophils % Nucleated RBC % Platelet Estimate % Immature Plt Fraction Anisocytosis Microcytosis Inés Cells Schistocytes Sodium Potassium Chloride Carbon Dioxide Anion Gap BUN Creatinine Estim Creat Clear Calc Estimated GFR Glucose POC Capillary Glucose 142 H 102 101 Calcium Phosphorus Magnesium Total Bilirubin AST ALT Alkaline Phosphatase Total Protein Albumin 01/22/25 01/22/25 01/22/25 05:02 08:25 12:02 WBC 12.4 H RBC 2.83 L Hgb 9.7 L Hct 28.7 L MCV 101.4 H MCH 34.3 H MCHC 33.8 RDW 15.5 H Plt Count 77 L MPV 13.2 H Immature Gran % (Auto) 6.6 H Neut % (Auto) 57.8 Lymph % (Auto) 25.4 [place] % (Auto) 7.3 Eos % (Auto) 2.2 Baso % (Auto) 0.7 Lymph # (Auto) 3.16 [place] # (Auto) 0.9 H Eos # (Auto) 0.3 Baso # (Auto) 0.1 Abs Immat Gran (auto) 0.82 H Absolute Neuts (auto) 7.2 H Absolute Nucleated RBC 0.200 H Band Neutrophils % Not Reportable Nucleated RBC % 1.6 H Platelet Estimate Decreased % Immature Plt Fraction 17.2 H Anisocytosis 1+ Microcytosis 1+ [place] Cells 1+ Schistocytes None seen Sodium 137 Potassium 3.0 L Chloride 105 Carbon Dioxide 26 Anion Gap 6 BUN 24 H Creatinine 0.77 Estim Creat Clear Calc 78 Estimated GFR > 60 Glucose 88 POC Capillary Glucose 90 136 H Calcium 8.6 Phosphorus 2.6 Magnesium 1.8 Total Bilirubin 0.9 AST 39 H ALT 59 H Alkaline Phosphatase 119 Total Protein 5.3 L Albumin 3.2 L 01/22/25 12:18 WBC RBC Hgb Hct MCV MCH MCHC RDW Plt Count MPV Immature Gran % (Auto) Neut % (Auto) Lymph % (Auto) [place] % (Auto) Eos % (Auto) Baso % (Auto) Lymph # (Auto) [place] # (Auto) Eos # (Auto) Baso # (Auto) Abs Immat Gran (auto) Absolute Neuts (auto) Absolute Nucleated RBC Band Neutrophils % Nucleated RBC % Platelet Estimate % Immature Plt Fraction Anisocytosis Microcytosis [place] Cells Schistocytes Sodium Potassium 3.5 Chloride Carbon Dioxide Anion Gap BUN Creatinine Estim Creat Clear Calc Estimated GFR Glucose POC Capillary Glucose Calcium Phosphorus Magnesium Total Bilirubin AST ALT Alkaline Phosphatase Total Protein Albumin Quality VTE Prophylaxis VTE prophylaxis: mechanical ordered
[2025-01-22] MEDS: BACLOFEN 10 MG TABLET BY MOUTH (21:06)
[2025-01-22] MEDS: ATORVASTATIN 40 MG TABLET PO (21:06)
[2025-01-22] MEDS: TOPIRAMATE 25 MG TABLET BY MOUTH (21:07)
[2025-01-23] VITALS (8 sets, daily range): BP systolic 105–134; BP diastolic 66–79; PULSE 64–91; RESP 12–18; TEMP 36.1–36.8; O2SAT 96–99
[2025-01-23 05:13] LABS: Hematocrit 31.8 % (37.0-47.0); Hemoglobin 10.7 g/dL (12.0-15.0); Immature Platelet Fraction Pct 18.2 % (0.9-11.2); Mean Corpuscular HGB Conc 33.6 g/dl (32-36); Mean Corpuscular Hemoglobin 34.0 pg (26-34); Mean Corpuscular Volume 101.0 fl (80-100); Platelet Count Result 96 k/mm3 (150-375); Red Blood Count 3.15 M/mm3 (4.2-5.4); White Blood Count 9.9 K/mm3 (4.5-10.0)
[2025-01-23 05:31] LABS: Alanine Aminotransferase 49 U/L (6-35); Albumin Level 3.4 g/dL (3.5-5.1); Alkaline Phosphatase 130 U/L (38-126); Anion Gap 8 mmol/L (4-12); Aspartate Amino Transferase 33 U/L (14-36); Bilirubin,Total 0.9 mg/dL (0.2-1.3); Blood Urea Nitrogen 19 mg/dL (7-17); Calcium 9.0 mg/dL (8.4-10.2); Carbon Dioxide 24 mmol/L (22-30); Chloride 105 mmol/L (98-107); Estimated CRCL calculation 77 ml/min; Estimated Glomerular Filt Rate > 60; Glucose 97 mg/dL (65-110); Magnesium 2.1 mg/dL (1.6-2.3); Potassium 3.1 mmol/L (3.4-5.0); Sodium 137 mmol/L (137-145); Total Protein 5.6 g/dL (6.3-8.2)
[2025-01-23] MEDS: PREGABALIN (*CRX) 75 MG CAPSULE 150 MG PO ×3 (05:41→21:16)
[2025-01-23] MEDS: SUCRALFATE 1 GM TABLET PO ×4 (05:41→20:09)
[2025-01-23 05:43] LABS: Band Neutrophils Percent 6 % (0-6); Eosinophils Absolute Manual 0.09 K/mm3 (0.02-0.50); Eosinophils Percent Manual 1 % (0-4); Lymphocytes Absolute Manual 3.56 K/mm3 (1.1-4.5); Lymphocytes Percent Manual 36.0 % (18-44); Monocytes Absolute Manual 0.49 K/mm3 (0.1-0.90); Monocytes Percent Manual 5 % (3-9); Neutrophils Absolute Manual 5.74 K/mm3 (1.3-6.7); Neutrophils Percent Manual 52 % (46-73); Total Cells Counted 100
[2025-01-23 05:44] LABS: Smudge Cells PRESENT
[2025-01-23 05:45] LABS: Anisocytosis 1+; Schistocytes None Seen
[2025-01-23 05:46] LABS: Polychromasia 1+
--- NOTE | 2025-01-23 08:30 | P.PNUR_ITS ---
Progress Note: A&P Assessment and Plan (1) Hydronephrosis, right: Code(s): N13.30 - Unspecified hydronephrosis Status: Acute Plan * Tolerating right ureteral stent well. Will plan to leave it for 7-10 days prior to out patient removal in our office. * Gordon catheter replaced after failed VT. Will do outpatient VT with stent removal. Discussed with patient. * Antibiotic therapy per hospitalist service Subjective Subjective Date/Time Seen: 01/23/25 08:30 Interval history: VT attempted but patient didnt do well. She was straight cath'd twice before replacing gordon due to retention. Gordon patent and draining clear yellow urine Review of Systems Review of Systems: All systems reviewed & are unremarkable except as noted in HPI and below Exam Const: General: comfortable and no acute distress Eyes: General: appearance normal, both eyes and all related structures Resp: Effort & Inspection: normal respiratory effort GI: Inspection: non-distended Auscultation: normal bowel sounds Urinary Catheter: Urinary Catheter: patent and draining and urine clear Skin: General skin exam: normal color Neuro: Speech: normal speech Objective Data Vital Signs Vital Signs: Vital Signs - 24 hr 01/22/25 12:00 01/22/25 16:00 01/22/25 16:00 Temperature 97.6 F Pulse Rate 81 87 85 Respiratory Rate 18 Blood Pressure 109/65 Pulse Oximetry 95 Oxygen Delivery 01/22/25 20:00 01/22/25 20:00 01/22/25 20:17 Temperature 97.6 F Pulse Rate 89 86 Respiratory Rate 16 Blood Pressure 111/70 Pulse Oximetry 96 Oxygen Delivery Room Air 01/23/25 00:00 01/23/25 00:00 01/23/25 04:00 Temperature 97.8 F Pulse Rate 73 73 64 Respiratory Rate 16 Blood Pressure 128/71 Pulse Oximetry 96 Oxygen Delivery 01/23/25 04:13 Temperature 97.0 F L Pulse Rate 74 Respiratory Rate 12 Blood Pressure 134/74 Pulse Oximetry 96 Oxygen Delivery Intake/Output Intake/Output: Intake & Output 01/20/25 01/21/25 01/22/25 01/23/25 23:59 23:59 23:59 23:59 Intake Total 1383.8 2700 990 Output Total 1150 4150 4250 Balance 233.8 -4450 3260 Meds/Results Medications: Active Medications Generic Name Dose Route Start Last Admin Trade Name Freq PRN Reason Stop Dose Admin Acetaminophen 650 mg 01/19/25 19:33 Acetaminophen 325 Mg Tablet PO Q4H PRN Mild Pain (1-3) or Fever Hydrocodone Bitart/Acetaminophen 1 tab 01/20/25 17:09 01/21/25 17:49 Hydrocodone/Acetaminophen (*Crx) 5-325 Mg Tablet PO 1 tab Q6H PRN Administration Pain Rated 4-6 Albuterol/Ipratropium 3 ml 01/19/25 11:08 Ipratropium 0.5 Mg/Albuterol Sulfate 2.5 Mg Ampul.Neb 3 Ml INHALATION Q6HRT PRN Wheezing Artificial Tears 1 drop 01/21/25 12:40 Artificial Tears Ophth Soln 15 Ml Bottle EACH EYE QHS PRN Dry Eye(s) Aspirin 81 mg 01/20/25 09:00 01/22/25 08:07 Aspirin 81 Mg Enteric Tablet PO 81 mg QAM A[facility]LEY Administration Atorvastatin Calcium 40 mg 01/21/25 21:00 01/22/25 21:06 Atorvastatin 40 Mg Tablet PO 40 mg QHS A[facility]LEY Administration Baclofen 10 mg 01/20/25 21:00 01/22/25 21:06 Baclofen 10 Mg Tablet BY MOUTH 10 mg HS A[facility]LEY Administration Dextrose 12.5 gm 01/19/25 11:10 Dextrose 50% 25 Gm/50 Ml Syringe IV PUSH PRN PRN Hypoglycemia Protocol Ergocalciferol 1,250 mcg 02/01/25 09:00 Ergocalciferol (Vitamin D2) 1,250 Mcg (50,000 Units) Capsule PO Q30D A[facility]LEY Folic Acid 1 mg 01/21/25 09:00 01/22/25 08:08 Folic Acid 1 Mg Tablet PO 1 mg DAILY A[facility] Administration Furosemide 40 mg 01/21/25 09:00 01/22/25 08:08 Furosemide 40 Mg Tablet PO 40 mg DAILY A[facility] Administration Glucagon 1 mg 01/19/25 11:10 Glucagon For Inj 1 Mg Vial IM PRN PRN Hypoglycemia Protocol Glucose 15 gm 01/19/25 11:10 Glucose Oral Gel 15 Gm Of Glucse In 37.5 Gm Tube PO PRN PRN Hypoglycemia Protocol Dextrose 1,000 mls @ 100 mls/hr 01/19/25 11:10 Dextrose 5% 1,000 Ml IVPB PRN PRN Hypoglycemia Protocol Insulin Aspart 3 - 6 units 01/21/25 08:00 01/22/25 17:19 Insulin Aspart (*Bkc) 100 Units/Ml SUB-Q Not Given TIDWM [facility] Protocol Insulin Aspart 1 - 3 units 01/21/25 21:00 01/22/25 21:08 Insulin Aspart (*Bkc) 100 Units/Ml SUB-Q Not Given HS [facility] Protocol Levetiracetam 1,500 mg 01/20/25 21:00 01/22/25 21:07 Levetiracetam 500 Mg Tablet BY MOUTH 1,500 mg Q12HR [facility] Administration Levofloxacin 750 mg 01/22/25 18:00 01/22/25 17:06 Levofloxacin 750 Mg Tablet PO 01/27/25 18:01 750 mg DAILY@1800 A[facility] Administration Meclizine HCl 25 mg 01/20/25 17:12 Meclizine Hcl 25 Mg Tablet BY MOUTH QID PRN Dizziness Methotrexate 7.5 mg 01/27/25 18:00 Methotrexate 2.5 Mg Tab (*Chemo) BY MOUTH Padilla@1800 [facility] Methylprednisolone 4 mg 01/21/25 09:00 01/22/25 08:07 Methylprednisolone 4 Mg Tablet PO 4 mg QAM A[place] Administration Miscellaneous Information 1 each 01/21/25 00:01 01/21/25 13:02 Order Clarification -Semaglutide [Ozempic] 2 Mg/3 Ml Pen Injector XX 02/20/25 00:00 Not Given CLARIFY [facility] Non-Formulary Medication 0.5 mg 01/28/25 09:00 Semaglutide [Ozempic] SUB-Q 02/27/25 08:59 WEEKLY [facility] Ondansetron HCl 4 mg 01/20/25 17:04 01/22/25 21:09 Ondansetron Inj 4 Mg/2 Ml Vial IV PUSH 4 mg Q4H PRN Administration Nausea And Vomiting Pantoprazole Sodium 40 mg 01/19/25 11:15 01/22/25 08:14 Pantoprazole Sodium Iv 40 Mg Vial IV PUSH 40 mg QAM A[place] Administration Pantoprazole Sodium 40 mg 01/20/25 21:00 01/22/25 21:07 Pantoprazole 40 Mg Tablet BY MOUTH 40 mg Q12HR [facility] Administration Polyethylene Glycol 17 gm 01/21/25 12:35 Polyethylene Glycol 3350 17 Gm Powd.Pack PO QAM PRN CONSTIPATION Potassium Chloride 10 meq 01/21/25 09:00 01/22/25 08:07 Potassium Chloride 10 Meq Er Tablet PO 10 meq DAILY A[facility]LEY Administration Pregabalin 150 mg 01/20/25 22:00 01/23/25 05:41 Pregabalin (*Crx) 75 Mg Capsule PO 150 mg Q8HR [facility] Administration Ropinirole HCl 1 mg 01/20/25 21:00 01/22/25 21:07 Ropinirole Hcl 1 Mg Tablet PO 1 mg QHS A[facility] Administration Solifenacin 10 mg 01/21/25 09:00 01/22/25 08:08 Solifenacin 5 Mg Tablet PO 10 mg QAM [facility] Administration Sucralfate 1 gm 01/20/25 21:00 01/23/25 05:41 Sucralfate 1 Gm Tablet PO 1 gm ACHS A[facility]LEY Administration Tamsulosin HCl 0.4 mg 01/21/25 09:00 01/22/25 08:07 Tamsulosin Hcl 0.4 Mg Capsule PO 0.4 mg DAILY A[facility] Administration Topiramate 25 mg 01/20/25 21:00 01/22/25 21:07 Topiramate 25 Mg Tablet BY MOUTH 25 mg HS AINSLEY Administration Radiology Results: ITS Impressions Head CT 01/19/25 09:30 IMPRESSION: Cerebral atherosclerosis and chronic small vessel ischemic changes of the cerebral white matter No skull fracture or acute intracranial finding Abdomen/Pelvis CT 01/19/25 11:33 IMPRESSION: 1. Mild right hydronephrosis with urothelial enhancement, suspicious for ascending urinary tract infection. Retrograde Pyelogram 01/19/25 12:18 IMPRESSION: 1. Right internal ureteral stent placement. Please refer to real-time procedural findings for details. Labs Labs: Laboratory Results - last 24 hr 01/22/25 01/22/25 01/22/25 12:02 12:18 17:03 WBC RBC Hgb Hct MCV MCH MCHC RDW Plt Count MPV Immature Gran % (Auto) Neut % (Auto) Lymph % (Auto) [place] % (Auto) Eos % (Auto) Baso % (Auto) Lymph # (Auto) [place] # (Auto) Eos # (Auto) Baso # (Auto) Abs Immat Gran (auto) Absolute Neuts (auto) Absolute Nucleated RBC Total Counted Neutrophils % (Manual) Band Neutrophils % Lymphocytes % (Manual) Monocytes % (Manual) Eosinophils % (Manual) Nucleated RBC % Abs Neuts (Manual) Abs Lymphs (Manual) Abs Monocytes (Manual) Absolute Eos (Manual) Nucleated RBCs Atypical Lymphocytes Smudge Cells Platelet Estimate % Immature Plt Fraction Polychromasia Anisocytosis Schistocytes Sodium Potassium 3.5 Chloride Carbon Dioxide Anion Gap BUN Creatinine Estim Creat Clear Calc Estimated GFR Glucose POC Capillary Glucose 136 H 155 H Calcium Phosphorus Magnesium Total Bilirubin AST ALT Alkaline Phosphatase Total Protein Albumin 01/22/25 01/23/25 20:11 04:42 WBC 9.9 RBC 3.15 L Hgb 10.7 L Hct 31.8 L MCV 101.0 H MCH 34.0 MCHC 33.6 RDW 15.9 H Plt Count 96 L MPV 13.4 H Immature Gran % (Auto) Not Reportable Neut % (Auto) Not Reportable Lymph % (Auto) Not Reportable [place] % (Auto) Not Reportable Eos % (Auto) Not Reportable Baso % (Auto) Not Reportable Lymph # (Auto) Not Reportable [place] # (Auto) Not Reportable Eos # (Auto) Not Reportable Baso # (Auto) Not Reportable Abs Immat Gran (auto) Not Reportable Absolute Neuts (auto) Not Reportable Absolute Nucleated RBC Not Reportable Total Counted 100 Neutrophils % (Manual) 52 Band Neutrophils % 6 Lymphocytes % (Manual) 36.0 Monocytes % (Manual) 5 Eosinophils % (Manual) 1 Nucleated RBC % Not Reportable Abs Neuts (Manual) 5.74 Abs Lymphs (Manual) 3.56 Abs Monocytes (Manual) 0.49 Absolute Eos (Manual) 0.09 Nucleated RBCs 2 Atypical Lymphocytes Present Smudge Cells Present Platelet Estimate Decreased % Immature Plt Fraction 18.2 H Polychromasia 1+ Anisocytosis 1+ Schistocytes None seen Sodium 137 Potassium 3.1 L Chloride 105 Carbon Dioxide 24 Anion Gap 8 BUN 19 H Creatinine 0.75 Estim Creat Clear Calc 77 Estimated GFR > 60 Glucose 97 POC Capillary Glucose 115 H Calcium 9.0 Phosphorus 3.0 Magnesium 2.1 Total Bilirubin 0.9 AST 33 ALT 49 H Alkaline Phosphatase 130 H Total Protein 5.6 L Albumin 3.4 L
[2025-01-23] MEDS: PANTOPRAZOLE 40 MG TABLET BY MOUTH ×2 (09:34→20:09)
[2025-01-23] MEDS: TAMSULOSIN HCL 0.4 MG CAPSULE PO (09:34)
[2025-01-23] MEDS: POTASSIUM CHLORIDE 10 MEQ ER TABLET PO (09:34)
[2025-01-23] MEDS: ASPIRIN 81 MG ENTERIC TABLET PO (09:34)
[2025-01-23] MEDS: FOLIC ACID 1 MG TABLET PO (09:34)
[2025-01-23] MEDS: POTASSIUM CHLORIDE 20 MEQ PACKET (FOR LIQUID) 40 MEQ PO (09:34)
[2025-01-23] MEDS: PANTOPRAZOLE SODIUM IV 40 MG VIAL IV PUSH (09:35)
[2025-01-23] MEDS: FUROSEMIDE 40 MG TABLET PO (09:37)
[2025-01-23] MEDS: SOLIFENACIN 5 MG TABLET 10 MG PO (09:37)
[2025-01-23] MEDS: ONDANSETRON INJ 4 MG/2 ML VIAL IV PUSH (11:14)
[2025-01-23] MEDS: ACYCLOVIR SODIUM IVPB 700 MG in DEXTROSE 5% IN WATER 250 ML 244.7 MG IVPB ×2 (13:08→20:02)
--- NOTE | 2025-01-23 14:29 | P.PNIM_ITS ---
Progress Note: A&P Assessment and Plan (1) Septic shock: Code(s): A41.9 - Sepsis, unspecified organism; R65.21 - Severe sepsis with septic shock Status: Acute (2) Calculus of proximal right ureter: Code(s): N20.1 - Calculus of ureter Status: Acute (3) Seizures: Code(s): R56.9 - Unspecified convulsions Status: Acute (4) COPD (chronic obstructive pulmonary disease): Code(s): J44.9 - Chronic obstructive pulmonary disease, unspecified Status: Chronic (5) Thrombocytopenia: Code(s): D69.6 - Thrombocytopenia, unspecified Status: Acute (6) Electrolyte abnormality: Code(s): E87.8 - Other disorders of electrolyte and fluid balance, not elsewhere classified Status: Acute (7) Type 2 diabetes mellitus: Qualifiers: Diabetes mellitus care home insulin use: without care home use Diabetes mellitus complication status: with hyperglycemia Qualified Code(s): E11.65 - Type 2 diabetes mellitus with hyperglycemia Code(s): E11.9 - Type 2 diabetes mellitus without complications Status: Acute Plan ER-HPI Narrative: 59-year-old female with a past medical history including seizure disorder, multiple sclerosis, type 2 diabetes, kidney stone history. She was hospitalized at [facility] from January 02 through January 07 for acute encephalopathy and had a kidney stone at that time. She had a ureteral stent placed with urologist Dr. Stanton. Patient was discharged with outpatient Neurology and Urology follow-up. She had a procedure done on the just 2 days ago where she had a cystoscopy with extraction of ureteral stone and removal of the previously mentioned stent. Patient went home after the procedure and EMS was called to scene this morning were patient was feeling unwell, fevers, having reportedly low blood pressures, tachycardic and altered mentation. She was transported BLS and brought to room 12 for evaluation. On arrival she is tachycardic and febrile at 39.4? C, is currently alert oriented x4, answering all questions appropriately not altered. No signs of trauma. She denies any chest pain, abdominal pain, back pain, nausea, vomiting, vision changes urinary complaints. She does states she feels profoundly weak. Septic bundle was initiated given patient's vitals and fever. Patient denies any trauma or injury. Urology note: Allie Buchanan is a 59 year old female known to our practice after presenting to Health system on 01/03 with an obstructing right proximal ureteral stone. On the days she underwent right ureteral stent placement. Just 2 days ago a right ureteral stent was removed after a successful stone extraction several days prior. She presents to the emergency department with change in mental status. Upon presentation she had a picture of septic shock and CT imaging shows right hydroureteronephrosis to the ureterovesical junction without obvious residual stone. Her did not document fever but she was febrile on presentation to the ER with a temp of 102 ?. Initially patient was monitored in the [facility] and was taken to OR emergently due to hydronephrosis and fever and right stent was placed and transfer back to ICU. patient is now out of ICU and transferred to IMU, patient was having loose BM and was tested for C diff, and it was negative, patient stats feels better, he BM have improved, and pain pelvic right flank has improved. Denies any fever or chills, her is present in the room, will continue will follow up on urine and blood culture. patient was out of ICU and transferred to IMU, patient was having loose BM and was tested for C diff, and it was negative, patient stats feels better, her BM have improved, and pain pelvic right flank has improved. Denies any fever or chills, her is present in the room, her blood culture is growing pseudomonas aeruginosa blum sensitive and being treated meropenem IV, discussed with clinical pharmacy, from tomorrow we can switch patient to oral Abx, on 721 patient was seen by her urologist patient was clinically improving and will need follow up in outpatient clinic in 01-10 for removal of the stent, patient will need avoiding trial before discharge, today patient stats patient feels better however has developed a lesion on upper lip and nasal fold slight hyperemic with early pustule and vesicle, concern for HSV 1 or HSV 2, will order blood test, patient clinically stable does not have neuro symptoms, will start on Acylovir IV, discuss with clinical pharmacist, will adjust the dose, will switch to oral Valtrex tomorrow, will have PT/OT evaluate the patient, will monitor patient will benefit with rehab before going home. Subjective Date/time seen: 01/23/25 14:29 Interval history: ER-HPI Narrative: 59-year-old female with a past medical history including seizure disorder, multiple sclerosis, type 2 diabetes, kidney stone history. She was hospitalized at [facility] from January 02 through January 07 for acute encephalopathy and had a kidney stone at that time. She had a ureteral stent placed with urologist Dr. Stanton. Patient was discharged with outpatient Neurology and Urology follow-up. She had a procedure done on the just 2 days ago where she had a cystoscopy with extraction of ureteral stone and removal of the previously mentioned stent. Patient went home after the procedure and EMS was called to scene this morning were patient was feeling unwell, fevers, having reportedly low blood pressures, tachycardic and altered mentation. She was transported BLS and brought to room 12 for evaluation. On arrival she is tachycardic and febrile at 39.4? C, is currently alert oriented x4, answering all questions appropriately not altered. No signs of trauma. She denies any chest pain, abdominal pain, back pain, nausea, vomiting, vision changes urinary complaints. She does states she feels profoundly weak. Septic bundle was initiated given patient's vitals and fever. Patient denies any trauma or injury. Urology note: Allie Buchanan is a 59 year old female known to our practice after presenting to Health system on 01/03 with an obstructing right proximal ureteral stone. On the days she underwent right ureteral stent placement. Just 2 days ago a right ureteral stent was removed after a successful stone extraction several days prior. She presents to the emergency department with change in mental status. Upon presentation she had a picture of septic shock and CT imaging shows right hydroureteronephrosis to the ureterovesical junction without obvious residual stone. Her did not document fever but she was febrile on presentation to the ER with a temp of 102?. Initially patient was monitored in the [facility] and was taken to OR emergently due to hydronephrosis and fever and right stent was placed and transfer back to ICU. patient was out of ICU and transferred to IMU, patient was having loose BM and was tested for C diff, and it was negative, patient stats feels better, her BM have improved, and pain pelvic right flank has improved. Denies any fever or chills, her is present in the room, her blood culture is growing pseudomonas aeruginosa blum sensitive and being treated meropenem IV, discussed with clinical pharmacy, from tomorrow we can switch patient to oral Abx, on 721 patient was seen by her urologist patient was clinically improving and will need follow up in outpatient clinic in 01-10 for removal of the stent, patient will need avoiding trial before discharge, today patient stats patient feels better however has developed a lesion on upper lip and nasal fold slight hyperemic with early pustule and vesicle, concern for HSV 1 or HSV 2, will order blood test, patient clinically stable does not have neuro symptoms, will start on Acylovir IV, discuss with clinical pharmacist, will adjust the dose, will switch to oral Valtrex tomorrow, will have PT/OT evaluate the patient, will monitor patient will benefit with rehab before going home. Review of Systems Review of Systems: All systems reviewed & are unremarkable except as noted in HPI and below (HPI) Exam Narrative: Morbidly obese Patient is comfortable, NAD HEENT: eyes are clear and none icteric, upper lip and left nasal fold, hyperemic with early developing pustule and vesicle, LUNGS:CTA HEART: RR S1S2 ABD: BS+, Soft and nontender Lower extremities: no edema SKIN: nonjaundiced Neuro: grossly intact. Objective Data Vital Signs Vital Signs: Vital Signs - 24 hr 01/22/25 16:00 01/22/25 16:00 01/22/25 20:00 Temperature 36.4 C Pulse Rate 87 85 89 Respiratory Rate 18 Blood Pressure 109/65 Pulse Oximetry 95 Oxygen Delivery 01/22/25 20:00 01/22/25 20:17 01/23/25 00:00 Temperature 36.4 C 36.6 C Pulse Rate 86 73 Respiratory Rate 16 16 Blood Pressure 111/70 128/71 Pulse Oximetry 96 96 Oxygen Delivery Room Air 01/23/25 00:00 01/23/25 04:00 01/23/25 04:13 Temperature 36.1 C L Pulse Rate 73 64 74 Respiratory Rate 12 Blood Pressure 134/74 Pulse Oximetry 96 Oxygen Delivery 01/23/25 08:00 01/23/25 09:27 01/23/25 09:38 Temperature 36.4 C L Pulse Rate 76 Respiratory Rate 14 Blood Pressure 128/72 Pulse Oximetry 97 Oxygen Delivery Room Air Room Air Intake/Output Intake/Output: Intake & Output 01/20/25 01/21/25 01/22/25 01/23/25 23:59 23:59 23:59 23:59 Intake Total 1383.8 2700 990 120 Output Total 1150 4150 4250 950 Balance 233.3 -4852 -3267 -830 Meds/Results Medications: Active Medications Generic Name Dose Route Start Last Admin Trade Name Freq PRN Reason Stop Dose Admin Acetaminophen 650 mg 01/19/25 19:33 Acetaminophen 325 Mg Tablet PO Q4H PRN Mild Pain (1-3) or Fever Hydrocodone Bitart/Acetaminophen 1 tab 01/20/25 17:09 01/21/25 17:49 Hydrocodone/Acetaminophen (*Crx) 5-325 Mg Tablet PO 1 tab Q6H PRN Administration Pain Rated 4-6 Albuterol/Ipratropium 3 ml 01/19/25 11:08 Ipratropium 0.5 Mg/Albuterol Sulfate 2.5 Mg Ampul.Neb 3 Ml INHALATION Q6HRT PRN Wheezing Artificial Tears 1 drop 01/21/25 12:40 Artificial Tears Ophth Soln 15 Ml Bottle EACH EYE QHS PRN Dry Eye(s) Aspirin 81 mg 01/20/25 09:00 01/23/25 09:34 Aspirin 81 Mg Enteric Tablet PO 81 mg QAM AINSLEY Administration Atorvastatin Calcium 40 mg 01/21/25 21:00 01/22/25 21:06 Atorvastatin 40 Mg Tablet PO 40 mg QHS AINSLEY Administration Baclofen 10 mg 01/20/25 21:00 01/22/25 21:06 Baclofen 10 Mg Tablet BY MOUTH 10 mg HS AINSLEY Administration Dextrose 12.5 gm 01/19/25 11:10 Dextrose 50% 25 Gm/50 Ml Syringe IV PUSH PRN PRN Hypoglycemia Protocol Ergocalciferol 1,250 mcg 02/01/25 09:00 Ergocalciferol (Vitamin D2) 1,250 Mcg (50,000 Units) Capsule PO Q30D AINSLEY Folic Acid 1 mg 01/21/25 09:00 01/23/25 09:34 Folic Acid 1 Mg Tablet PO 1 mg DAILY AINSLEY Administration Furosemide 40 mg 01/21/25 09:00 01/23/25 09:37 Furosemide 40 Mg Tablet PO 40 mg DAILY AINSLEY Administration Glucagon 1 mg 01/19/25 11:10 Glucagon For Inj 1 Mg Vial IM PRN PRN Hypoglycemia Protocol Glucose 15 gm 01/19/25 11:10 Glucose Oral Gel 15 Gm Of Glucse In 37.5 Gm Tube PO PRN PRN Hypoglycemia Protocol Dextrose 1,000 mls @ 100 mls/hr 01/19/25 11:10 Dextrose 5% 1,000 Ml IVPB PRN PRN Hypoglycemia Protocol Acyclovir Sodium 700 mg/ 264 mls @ 244.696 mls/hr 01/23/25 13:00 01/23/25 13:08 Dextrose IVPB 244.7 mls/hr Q8H A[facility]LEY Administration Insulin Aspart 3 - 6 units 01/21/25 08:00 01/23/25 13:06 Insulin Aspart (*Bkc) 100 Units/Ml SUB-Q Not Given TIDWM A[facility]LEY Protocol Insulin Aspart 1 - 3 units 01/21/25 21:00 01/22/25 21:08 Insulin Aspart (*Bkc) 100 Units/Ml SUB-Q Not Given HS AINSLEY Protocol Levetiracetam 1,500 mg 01/20/25 21:00 01/23/25 09:37 Levetiracetam 500 Mg Tablet BY MOUTH 1,500 mg Q12HR AINSLEY Administration Levofloxacin 750 mg 01/22/25 18:00 01/22/25 17:06 Levofloxacin 750 Mg Tablet PO 01/27/25 18:01 750 mg DAILY@1800 [facility] Administration Meclizine HCl 25 mg 01/20/25 17:12 Meclizine Hcl 25 Mg Tablet BY MOUTH QID PRN Dizziness Methotrexate 7.5 mg 01/27/25 18:00 Methotrexate 2.5 Mg Tab (*Chemo) BY MOUTH Padilla@1800 [facility] Methylprednisolone 4 mg 01/21/25 09:00 01/23/25 09:37 Methylprednisolone 4 Mg Tablet PO 4 mg QAM [facility] Administration Miscellaneous Information 1 each 01/21/25 00:01 01/21/25 13:02 Order Clarification -Semaglutide [Ozempic] 2 Mg/3 Ml Pen Injector XX 02/20/25 00:00 Not Given CLARIFY [facility] Non-Formulary Medication 0.5 mg 01/28/25 09:00 Semaglutide [Ozempic] SUB-Q 02/27/25 08:59 WEEKLY [facility] Ondansetron HCl 4 mg 01/20/25 17:04 01/23/25 11:14 Ondansetron Inj 4 Mg/2 Ml Vial IV PUSH 4 mg Q4H PRN Administration Nausea And Vomiting Pantoprazole Sodium 40 mg 01/19/25 11:15 01/23/25 09:35 Pantoprazole Sodium Iv 40 Mg Vial IV PUSH 40 mg QAM [facility]LEY Administration Pantoprazole Sodium 40 mg 01/20/25 21:00 01/23/25 09:34 Pantoprazole 40 Mg Tablet BY MOUTH 40 mg Q12HR [facility] Administration Polyethylene Glycol 17 gm 01/21/25 12:35 Polyethylene Glycol 3350 17 Gm Powd.Pack PO QAM PRN CONSTIPATION Potassium Chloride 10 meq 01/21/25 09:00 01/23/25 09:34 Potassium Chloride 10 Meq Er Tablet PO 10 meq DAILY A[facility]LEY Administration Pregabalin 150 mg 01/20/25 22:00 01/23/25 13:07 Pregabalin (*Crx) 75 Mg Capsule PO 150 mg Q8HR A[facility]LEY Administration Ropinirole HCl 1 mg 01/20/25 21:00 01/22/25 21:07 Ropinirole Hcl 1 Mg Tablet PO 1 mg QHS A[facility] Administration Solifenacin 10 mg 01/21/25 09:00 01/23/25 09:37 Solifenacin 5 Mg Tablet PO 10 mg QAM A[facility] Administration Sucralfate 1 gm 01/20/25 21:00 01/23/25 13:07 Sucralfate 1 Gm Tablet PO 1 gm ACHS A[facility]LEY Administration Tamsulosin HCl 0.4 mg 01/21/25 09:00 01/23/25 09:34 Tamsulosin Hcl 0.4 Mg Capsule PO 0.4 mg DAILY A[facility] Administration Topiramate 25 mg 01/20/25 21:00 01/22/25 21:07 Topiramate 25 Mg Tablet BY MOUTH 25 mg HS AINSLEY Administration Radiology Results: ITS Impressions Head CT 01/19/25 09:30 IMPRESSION: Cerebral atherosclerosis and chronic small vessel ischemic changes of the cerebral white matter No skull fracture or acute intracranial finding Abdomen/Pelvis CT 01/19/25 11:33 IMPRESSION: 1. Mild right hydronephrosis with urothelial enhancement, suspicious for ascending urinary tract infection. Retrograde Pyelogram 01/19/25 12:18 IMPRESSION: 1. Right internal ureteral stent placement. Please refer to real-time procedural findings for details. Labs Labs: Laboratory Results - last 24 hr 01/22/25 01/22/25 01/23/25 17:03 20:11 04:42 WBC 9.9 RBC 3.15 L Hgb 10.7 L Hct 31.8 L MCV 101.0 H MCH 34.0 MCHC 33.6 RDW 15.9 H Plt Count 96 L MPV 13.4 H Immature Gran % (Auto) Not Reportable Neut % (Auto) Not Reportable Lymph % (Auto) Not Reportable [place] % (Auto) Not Reportable Eos % (Auto) Not Reportable Baso % (Auto) Not Reportable Lymph # (Auto) Not Reportable [place] # (Auto) Not Reportable Eos # (Auto) Not Reportable Baso # (Auto) Not Reportable Abs Immat Gran (auto) Not Reportable Absolute Neuts (auto) Not Reportable Absolute Nucleated RBC Not Reportable Total Counted 100 Neutrophils % (Manual) 52 Band Neutrophils % 6 Lymphocytes % (Manual) 36.0 Monocytes % (Manual) 5 Eosinophils % (Manual) 1 Nucleated RBC % Not Reportable Abs Neuts (Manual) 5.74 Abs Lymphs (Manual) 3.56 Abs Monocytes (Manual) 0.49 Absolute Eos (Manual) 0.09 Nucleated RBCs 2 Atypical Lymphocytes Present Smudge Cells Present Platelet Estimate Decreased % Immature Plt Fraction 18.2 H Polychromasia 1+ Anisocytosis 1+ Schistocytes None seen Sodium 137 Potassium 3.1 L Chloride 105 Carbon Dioxide 24 Anion Gap 8 BUN 19 H Creatinine 0.75 Estim Creat Clear Calc 77 Estimated GFR > 60 Glucose 97 POC Capillary Glucose 155 H 115 H Calcium 9.0 Phosphorus 3.0 Magnesium 2.1 Total Bilirubin 0.9 AST 33 ALT 49 H Alkaline Phosphatase 130 H Total Protein 5.6 L Albumin 3.4 L 01/23/25 01/23/25 08:21 11:53 WBC RBC Hgb Hct MCV MCH MCHC RDW Plt Count MPV Immature Gran % (Auto) Neut % (Auto) Lymph % (Auto) [place] % (Auto) Eos % (Auto) Baso % (Auto) Lymph # (Auto) [place] # (Auto) Eos # (Auto) Baso # (Auto) Abs Immat Gran (auto) Absolute Neuts (auto) Absolute Nucleated RBC Total Counted Neutrophils % (Manual) Band Neutrophils % Lymphocytes % (Manual) Monocytes % (Manual) Eosinophils % (Manual) Nucleated RBC % Abs Neuts (Manual) Abs Lymphs (Manual) Abs Monocytes (Manual) Absolute Eos (Manual) Nucleated RBCs Atypical Lymphocytes Smudge Cells Platelet Estimate % Immature Plt Fraction Polychromasia Anisocytosis Schistocytes Sodium Potassium Chloride Carbon Dioxide Anion Gap BUN Creatinine Estim Creat Clear Calc Estimated GFR Glucose POC Capillary Glucose 105 114 H Calcium Phosphorus Magnesium Total Bilirubin AST ALT Alkaline Phosphatase Total Protein Albumin Quality VTE Prophylaxis VTE prophylaxis: mechanical ordered
[2025-01-23] MEDS: ATORVASTATIN 40 MG TABLET PO (20:09)
[2025-01-23] MEDS: TOPIRAMATE 25 MG TABLET BY MOUTH (20:09)
[2025-01-23] MEDS: BACLOFEN 10 MG TABLET BY MOUTH (20:09)
[2025-01-24] VITALS: PULSE 71
[2025-01-24 04:00] VITALS: PULSE 74
[2025-01-24 05:22] VITALS: BP 125/54; PULSE 74; RESP 18; TEMP 36.9; O2SAT 95
[2025-01-24 05:48] LABS: Hematocrit 34.2 % (37.0-47.0); Hemoglobin 11.2 g/dL (12.0-15.0); Immature Platelet Fraction Pct 19.5 % (0.9-11.2); Mean Corpuscular HGB Conc 32.7 g/dl (32-36); Mean Corpuscular Hemoglobin 33.5 pg (26-34); Mean Corpuscular Volume 102.4 fl (80-100); Platelet Count Result 119 k/mm3 (150-375); Red Blood Count 3.34 M/mm3 (4.2-5.4); White Blood Count 9.8 K/mm3 (4.5-10.0)
[2025-01-24] MEDS: ACYCLOVIR SODIUM IVPB 700 MG in DEXTROSE 5% IN WATER 250 ML 244.7 MG IVPB ×2 (05:55→13:36)
[2025-01-24] MEDS: PREGABALIN (*CRX) 75 MG CAPSULE 150 MG PO ×2 (05:58→13:37)
[2025-01-24] MEDS: SUCRALFATE 1 GM TABLET PO ×2 (05:58→11:21)
[2025-01-24 06:09] LABS: Alanine Aminotransferase 42 U/L (6-35); Albumin Level 3.5 g/dL (3.5-5.1); Alkaline Phosphatase 141 U/L (38-126); Anion Gap 9 mmol/L (4-12); Aspartate Amino Transferase 34 U/L (14-36); Bilirubin,Total 0.9 mg/dL (0.2-1.3); Blood Urea Nitrogen 17 mg/dL (7-17); Calcium 8.8 mg/dL (8.4-10.2); Carbon Dioxide 24 mmol/L (22-30); Chloride 105 mmol/L (98-107); Estimated CRCL calculation 69 ml/min; Estimated Glomerular Filt Rate > 60; Glucose 91 mg/dL (65-110); Magnesium 2.2 mg/dL (1.6-2.3); Potassium 3.3 mmol/L (3.4-5.0); Sodium 138 mmol/L (137-145); Total Protein 5.8 g/dL (6.3-8.2)
[2025-01-24 06:43] LABS: Band Neutrophils Percent 6 % (0-6); Basophils Absolute Manual 0.19 K/mm3 (0.0-0.1); Basophils Percent Manual 2 % (0-1); Eosinophils Absolute Manual 0.19 K/mm3 (0.02-0.50); Eosinophils Percent Manual 2 % (0-4); Lymphocytes Absolute Manual 2.94 K/mm3 (1.1-4.5); Lymphocytes Percent Manual 30.0 % (18-44); Monocytes Absolute Manual 0.49 K/mm3 (0.1-0.90); Monocytes Percent Manual 5 % (3-9); Neutrophils Absolute Manual 5.97 K/mm3 (1.3-6.7); Neutrophils Percent Manual 55 % (46-73); Schistocytes None Seen; Total Cells Counted 100
[2025-01-24 06:44] LABS: Anisocytosis 2+; Macrocytosis 2+ (NORMAL); Polychromasia 1+
[2025-01-24 07:09] LABS: HSV 1 IgG, Type Spec Reactive (Non Reactive); HSV 2 IgG, Type Spec Non Reactive (Non Reactive)
[2025-01-24 08:00] VITALS: PULSE 93
[2025-01-24] MEDS: FUROSEMIDE 40 MG TABLET PO (08:46)
[2025-01-24] MEDS: SOLIFENACIN 5 MG TABLET 10 MG PO (08:46)
[2025-01-24] MEDS: POTASSIUM CHLORIDE 10 MEQ ER TABLET PO (08:46)
[2025-01-24] MEDS: TAMSULOSIN HCL 0.4 MG CAPSULE PO (08:46)
[2025-01-24] MEDS: FOLIC ACID 1 MG TABLET PO (08:46)
[2025-01-24] MEDS: ASPIRIN 81 MG ENTERIC TABLET PO (08:46)
[2025-01-24] MEDS: PANTOPRAZOLE 40 MG TABLET BY MOUTH (08:47)
[2025-01-24] MEDS: POTASSIUM CHLORIDE 20 MEQ PACKET (FOR LIQUID) 40 MEQ PO (08:48)
[2025-01-24 12:00] VITALS: PULSE 82
--- NOTE | 2025-01-24 12:35 | P.DS_ITS ---
DS: Admitting Diagnosis Discharge Date 01/24/25 Admitting Diagnosis Fever DS: Discharge Diagnosis Discharge Diagnosis (1) SEVERO (acute kidney injury): Code(s): N17.9 - Acute kidney failure, unspecified Status: Acute (2) Septic shock: Code(s): A41.9 - Sepsis, unspecified organism; R65.21 - Severe sepsis with septic shock Status: Acute (3) Calculus of proximal right ureter: Code(s): N20.1 - Calculus of ureter Status: Acute (4) Seizures: Code(s): R56.9 - Unspecified convulsions Status: Acute (5) COPD (chronic obstructive pulmonary disease): Code(s): J44.9 - Chronic obstructive pulmonary disease, unspecified Status: Chronic (6) Thrombocytopenia: Code(s): D69.6 - Thrombocytopenia, unspecified Status: Acute (7) Electrolyte abnormality: Code(s): E87.8 - Other disorders of electrolyte and fluid balance, not elsewhere classified Status: Acute (8) Type 2 diabetes mellitus: Qualifiers: Diabetes mellitus truck terminal manager insulin use: without mcfp use Diabetes mellitus complication status: with hyperglycemia Qualified Code(s): E11.65 - Type 2 diabetes mellitus with hyperglycemia Code(s): E11.9 - Type 2 diabetes mellitus without complications Status: Acute DS: Summary Hospital Course Hospital Course: 59-year-old female with a past medical history including seizure disorder, multiple sclerosis, type 2 diabetes, kidney stone history. She was hospitalized at [facility] from January 02 through January 07 for acute encephalopathy and had a kidney stone at that time. She had a ureteral stent placed with urologist Dr. Stanton. Patient was discharged with outpatient Neurology and Urology follow-up. She had a procedure done on the just 2 days ago where she had a cystoscopy with extraction of ureteral stone and removal of the previously mentioned stent. Patient went home after the procedure and EMS was called to scene this morning were patient was feeling unwell, fevers, having reportedly low blood pressures, tachycardic and altered mentation. She was transported BLS and brought to room 12 for evaluation. On arrival she is tachycardic and febrile at 39.4? C, is currently alert oriented x4, answering all questions appropriately not altered. No signs of trauma. She denies any chest pain, abdominal pain, back pain, nausea, vomiting, vision changes urinary complaints. She does states she feels profoundly weak. Septic bundle was initiated given patient's vitals and fever. Patient denies any trauma or injury. Urology note: Allie Buchanan is a 59 year old female known to our practice after presenting to [facility] on 01/03 with an obstructing right proximal ureteral stone. On the days she underwent right ureteral stent placement. Just 2 days ago a right ureteral stent was removed after a successful stone extraction several days prior. She presents to the emergency department with change in mental status. Upon presentation she had a picture of septic shock and CT imaging shows right hydroureteronephrosis to the ureterovesical junction without obvious residual stone. Her did not document fever but she was febrile on presentation to the ER with a temp of 102?. Initially patient was monitored in the [facility] and was taken to OR emergently due to hydronephrosis and fever and right stent was placed and transfer back to ICU. patient is now out of ICU and transferred to IMU, patient was having loose BM and was tested for C diff, and it was negative, patient stats feels better, he BM have improved, and pain pelvic right flank has improved. Denies any fever or chills, her is present in the room, will continue will follow up on urine and blood culture. patient was out of ICU and transferred to IMU, patient was having loose BM and was tested for C diff, and it was negative, patient stats feels better, her BM have improved, and pain pelvic right flank has improved. Denies any fever or chills, her is present in the room, her blood culture is growing pseudomonas aeruginosa blum sensitive and being treated meropenem IV, discussed with clinical pharmacy, from tomorrow we can switch patient to oral Abx, on 721 patient was seen by her urologist patient was clinically improving and will need follow up in outpatient clinic in 01-10 for removal of the stent. today patient stats patient feels better however has developed a lesion on upper lip and nasal fold slight hyperemic with early pustule and vesicle, concern for HSV 1 or HSV 2, will order blood test, patient clinically stable does not have neuro symptoms, will start on Acylovir IV, discuss with clinical pharmacist, will adjust the dose, will switch to oral Valtrex tomorrow, will have PT/OT evaluate the patient, will monitor patient will benefit with rehab before going home. patient remains clinically, stable and feels better will discharge today. Time Spent with Patient Time attestation: Total time spent providing and/or coordinating discharge services: Exam Narrative: Morbidly obese Patient is comfortable, NAD HEENT: eyes are clear and none icteric, upper lip and left nasal fold, hyperemic with early developing pustule and vesicle, LUNGS:CTA HEART: RR S1S2 ABD: BS+, Soft and nontender Lower extremities: no edema SKIN: nonjaundiced Neuro: grossly intact. DS: Data Data Completed and Pending Labs on day of discharge: Labs from last 24 hours 01/24/25 01/24/25 01/24/25 11:51 07:45 05:03 WBC 9.8 RBC 3.34 L Hgb 11.2 L Hct 34.2 L MCV 102.4 H MCH 33.5 MCHC 32.7 RDW 15.9 H Plt Count 119 L MPV 13.1 H Immature Gran % (Auto) Not Reportable Neut % (Auto) Not Reportable Lymph % (Auto) Not Reportable [place] % (Auto) Not Reportable Eos % (Auto) Not Reportable Baso % (Auto) Not Reportable Lymph # (Auto) Not Reportable [place] # (Auto) Not Reportable Eos # (Auto) Not Reportable Baso # (Auto) Not Reportable Abs Immat Gran (auto) Not Reportable Absolute Neuts (auto) Not Reportable Absolute Nucleated RBC Not Reportable Total Counted 100 Neutrophils % (Manual) 55 Band Neutrophils % 6 Lymphocytes % (Manual) 30.0 Monocytes % (Manual) 5 Eosinophils % (Manual) 2 Basophils % (Manual) 2 H Nucleated RBC % Not Reportable Abs Neuts (Manual) 5.97 Abs Lymphs (Manual) 2.94 Abs Monocytes (Manual) 0.49 Absolute Eos (Manual) 0.19 Abs Basophils (Manual) 0.19 H Platelet Estimate Decreased % Immature Plt Fraction 19.5 H Polychromasia 1+ Anisocytosis 2+ Macrocytosis 2+ Schistocytes None seen Sodium 138 Potassium 3.3 L Chloride 105 Carbon Dioxide 24 Anion Gap 9 BUN 17 Creatinine 0.84 Estim Creat Clear Calc 69 Estimated GFR > 60 Glucose 91 POC Capillary Glucose 121 H 121 H Calcium 8.8 Phosphorus 3.4 Magnesium 2.2 Total Bilirubin 0.9 AST 34 ALT 42 H Alkaline Phosphatase 141 H Total Protein 5.8 L Albumin 3.5 HSV1 IgG Type-Specific Ab HSV2 IgG Type-Specific Ab 01/23/25 01/23/25 01/23/25 20:15 17:12 04:39 WBC RBC Hgb Hct MCV MCH MCHC RDW Plt Count MPV Immature Gran % (Auto) Neut % (Auto) Lymph % (Auto) [place] % (Auto) Eos % (Auto) Baso % (Auto) Lymph # (Auto) [place] # (Auto) Eos # (Auto) Baso # (Auto) Abs Immat Gran (auto) Absolute Neuts (auto) Absolute Nucleated RBC Total Counted Neutrophils % (Manual) Band Neutrophils % Lymphocytes % (Manual) Monocytes % (Manual) Eosinophils % (Manual) Basophils % (Manual) Nucleated RBC % Abs Neuts (Manual) Abs Lymphs (Manual) Abs Monocytes (Manual) Absolute Eos (Manual) Abs Basophils (Manual) Platelet Estimate % Immature Plt Fraction Polychromasia Anisocytosis Macrocytosis Schistocytes Sodium Potassium Chloride Carbon Dioxide Anion Gap BUN Creatinine Estim Creat Clear Calc Estimated GFR Glucose POC Capillary Glucose 133 H 152 H Calcium Phosphorus Magnesium Total Bilirubin AST ALT Alkaline Phosphatase Total Protein Albumin HSV1 IgG Type-Specific Ab Reactive A HSV2 IgG Type-Specific Ab Non reactive Preliminary micro results at discharge 01/19/25 06:08 Blood Culture - Preliminary Blood Pseudomonas aeruginosa 01/19/25 06:34 Blood Culture - Preliminary Blood Pseudomonas aeruginosa Discharge Plan Discharge Attending physician on discharge: Ric Courtney Consulting providers: Francesco Santana; Alex Bullock; Sukhwinder Tyler; Jermaine Bolton; Bishop Reece; Meeta Kwon; Patrick Bowers; Ambreen Ayala; Chadwick Rowe; Bird Klein Discharging Clinician: Ric Courtney Patient Disposition: Home with Home Health Service Activity: as tolerated Diet: heart healthy Discharge Instructions: patient to follow up with her primary care provider as soon as possible will need repeat potassium levels by Tuesday January 28, 2025, patient to follow up with urologist as scheduled, patient is instructed if any symptoms redevelop to go to nearest ER. Per Care Coordination: [facility] Home Health will start services with you upon discharge. [facility] Home Health will follow for RN and PT/OT eval and treat. [facility] Home Health can be contacted at . Nursing please fax discharge instructions to [phone]. Patient Instructions: Antibiotic Form, Long Catheter Placement and Care (DC), Removal of a Central Line, PICC, or Midline Catheter (GEN) Patient Language: Persian Stand Alone Forms: General Discharge Information Follow-up/Referrals: Sukhwinder Tyler MD [Physician] - Mandie Schaefer APRN [Primary Care Provider] - Discharge Medications: New levofloxacin 750 mg tablet 750 mg PO DAILY Qty: 4 0RF albuterol sulfate 2.5 mg /3 mL (0.083 %) solution for nebulization 2.5 mg inhalation Q6H PRN (Reason: shortness of breath or wheezing) Qty: 90 0RF (DME) compressor, for nebulizer Device See Rx Instructions .Route Qty: 1 0RF Rx Instructions: As directed Continued polyethylene glycol Powder 1 ea miscellaneous PRN PRN (Reason: constipation ) polyvinyl alcohol-povidone 0.5-0.6 % drops 1 drp EACH EYE QHS PRN (Reason: dry eye(s)) tamsulosin 0.4 mg capsule 0.4 mg PO DAILY furosemide 40 mg tablet 40 mg PO DAILY aspirin 81 mg Tablet 81 mg PO DAILY atorvastatin 40 mg tablet 40 mg PO QHS Qty: 90 1RF levetiracetam 500 mg tablet See Rx Instructions .ROUTE .COMPLEX Qty: 540 1RF Dose Instruction: TAKE 3 TABLETS BY MOUTH TWICE DAILY Rx Instructions: TAKE 3 TABLETS BY MOUTH TWICE DAILY folic acid 1 mg tablet 1 mg PO DAILY Qty: 90 3RF ergocalciferol (vitamin D2) [Vitamin D2] 1,250 mcg (50,000 unit) capsule 50,000 unit PO MONTHLY Qty: 3 3RF topiramate 25 mg tablet See Rx Instructions .ROUTE .COMPLEX Qty: 90 2RF Dose Instruction: TAKE 1 TABLET BY MOUTH EVERYDAY AT BEDTIME Rx Instructions: TAKE 1 TABLET BY MOUTH EVERYDAY AT BEDTIME pregabalin 150 mg capsule 150 mg PO TID Qty: 90 5RF methotrexate sodium 2.5 mg tablet See Rx Instructions .ROUTE .COMPLEX Qty: 39 1RF Dose Instruction: TAKE 3 TABLETS BY MOUTH ONCE WEEKLY Rx Instructions: TAKE 3 TABLETS BY MOUTH ONCE WEEKLY pantoprazole 40 mg tablet,delayed release (DR/EC) See Rx Instructions .ROUTE .COMPLEX Qty: 180 1RF Dose Instruction: TAKE 1 TABLET BY MOUTH TWICE A DAY Rx Instructions: TAKE 1 TABLET BY MOUTH TWICE A DAY baclofen 20 mg tablet See Rx Instructions .ROUTE .COMPLEX Qty: 90 1RF Dose Instruction: TAKE 1 TABLET (20 MG) BY MOUTH EVERY DAY AT BEDTIME Rx Instructions: TAKE 1 TABLET (20 MG) BY MOUTH EVERY DAY AT BEDTIME sucralfate 1 gram tablet 1 g PO Q6H Qty: 360 1RF Rx Instructions: 90 day supply (DME) OneTouch Verio test strips Strip See Rx Instructions .Route Qty: 100 5RF Rx Instructions: daily hydrocodone-acetaminophen 10-325 mg tablet 0.5 tablet PO Q6H PRN (Reason: pain) Qty: 50 0RF (DME) lancets [Easy Comfort Lancets] 30 gauge misc See Rx Instructions .Route Qty: 100 2RF Rx Instructions: Use 1 daily to check blood glucose ropinirole 1 mg tablet 1 mg PO QHS Qty: 30 2RF No Action potassium chloride [K-Tab] 20 mEq tablet extended release 20 meq PO DAILY Qty: 90 0RF metformin [Glucophage XR] 500 mg tablet extended release 24 hr 500 mg PO DAILY Qty: 90 0RF meclizine 25 mg tablet See Rx Instructions .ROUTE .COMPLEX Qty: 100 3RF Dose Instruction: TAKE 1 TABLET BY MOUTH 4 TIMES A DAY NEEDED FOR DIZZINESS Rx Instructions: TAKE 1 TABLET BY MOUTH 4 TIMES A DAY NEEDED FOR DIZZINESS Date of admission: 01/19/25 10:54 Primary Care Provider: Mandie Schaefer Admitting Provider: Ric Courtney Attending physician on admission: Ric Courtney Condition: Stable
[2025-01-24 14:00] VITALS: BP 107/62; PULSE 93; RESP 14; TEMP 36.7; O2SAT 98
== END 2025-01-24 15:10 | disposition home health service (06) | DRG 853 ==
LOC: ANHED 08:12 → ANHICU 12:28 → ANHIMU 01-20 12:18 → ANH2MED 01-21 16:50
PROVIDERS: Emergency Medicine; Internal Medicine; Urology; Admitting Provider Family Medicine; Emergency Provider Student in an Organized Health Care Education/Training Program; PCP Nurse Practitioner Family; Visit Provider Family Medicine
PROC: 0T768DZ Dilation of Right Ureter with Intraluminal Device, Via Natural or Artificial Opening Endoscopic (ICD-10-PCS; CPT 52352; principal; 2025-01-19 10:00)
DX: A41.9 Sepsis, unspecified organism (principal); R65.21 Severe sepsis with septic shock; N13.6 Pyonephrosis; N17.9 Acute kidney failure, unspecified; J44.9 Chronic obstructive pulmonary disease, unspecified; D69.6 Thrombocytopenia, unspecified; E11.65 Type 2 diabetes mellitus with hyperglycemia; G35 Multiple sclerosis; G40.909 Epilepsy, unspecified, not intractable, without status epilepticus; K21.9 Gastro-esophageal reflux disease without esophagitis; K76.0 Fatty (change of) liver, not elsewhere classified; M35.00 Sjogren syndrome, unspecified; I70.0 Atherosclerosis of aorta; M32.9 Systemic lupus erythematosus, unspecified; E66.9 Obesity, unspecified; Z68.39 Body mass index [BMI] 39.0-39.9, adult; Z90.49 Acquired absence of other specified parts of digestive tract; Z90.710 Acquired absence of both cervix and uterus; Z87.891 Personal history of nicotine dependence
CPT/HCPCS: 36415; 36556; 36600; 70450; 74177; 74420; 80053; 80069; 81001; 82805; 82948; 83605; 83735; 84100; 84132; 85018; 85025; 85055; 85610; 85730; 86140; 86695; 86696; 87040; 87086; 87255; 87493; 87641; 93005; 96365; 96366; 96367; 97161; 97165; 99291; A9270; C1751; C1758; C1769; C2617; J0133; J0613; J0692; J1720; J1815; J1885; J2185; J2250; J2405; J2470; J3373; J3480; J7030; J7040; J7050; J7060; J7120; P9047; Q9966; Q9967

== ENCOUNTER 2025-03-16 18:23 | Emergency (ER) | payer OTHER, SELFPAY ==
--- OUTSIDE RECORDS SUMMARY | 2009-12-02 10:15 | XMS_ITS | Continuity of Care Document ---
Author Organization 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 Name Role Phone Jasper Prescott Unavailable Unavailable Procedures Procedure Date Office/outpatient Visit, Est Visual Field Examination(s) Eye Exam & Treatment Refraction Eye Exam Established Pt Office/outpatient Visit, Est Close Tear Duct Opening Close Tear Duct Opening Office/outpatient Visit, Est Office/outpatient Visit, Est Office/outpatient Visit, Est Office/outpatient Visit, Est Eye Exam, New Patient Advance Directives Directive Yes / No Effective Date File Name No Information Encounters Encounter Description Practice Location Reason(s) For Visit Diagnoses Date Provider Providers Copied on Encounter Office/outpat ient Visit, Est [facility], [address] [place] [address] [address], [place], [place], [id number], [place] tel:[phone] [facility] No Information 1-201 0 Krishnasamy Jasper. [address] [facility] [address], [place], [address], [place]. tel:[phone] [facility], [address], [place], [place], [id number], [place] tel:[phone] [facility] No Information 2-200 9 Krishnasamy Jasper. [address] [facility] [address], [place], [place], [facility], [place]. tel:[phone] Referring Provider: Jasper wilson, [facility] [address], [place], [place], [facility]. tel:[phone] [facility], [address], [place], [place], [id number], [place] tel:[phone] [facility] No Information 3-200 9 Krishnasamy Jasper. [facility] [address], [place], [place], [facility], [place]. tel:[phone] [facility], [address] [place] [address] [address], [place], [place], [id number], [place] tel:[phone] [facility] No Information 9-200 9 Carlos OD Chetan. [address] [place] [address] [address], [address], [place], [facility], [place]. tel:[phone] Office/outpat ient Visit, Est [facility], [address] [place] [address] [address], [place], [place], [id number], [place] tel:[phone] [facility] No Information 4-200 9 Krishnasamy Jasper. [address] [place] [address] [address], [place], [facility], [place]. tel:[phone] [facility], [address] [place] [address] [address], [place], [place], [id number], [place] tel:[phone] [facility] No Information 3-200 9 Krishnasamy Jasper. [address] [place] [address] [address], [place], [facility], [place]. tel:[phone] Office/outpat ient Visit, Est [facility], [address], [place], [place], [id number], [place] tel:[phone] [facility] No Information Dec-0 9-200 8 Krishnasamy Jasper. [facility] [address], [facility], [place]. tel:[phone] Office/outpat ient Visit, [facility], [address] [place] [address] [address], [place], [place], [id number], [place] tel:[phone] SEC [facility] No Information Chava-1 3-200 8 Krishnasamy Jasper. [address] [place] [address], [facility], [place]. tel:[phone] Office/outpat ient Visit, [facility], [address] [place] [address] [address], [place], [place], [id number], tel:[phone] SEC [facility] No Information May-0 2-200 8 Krishnasamy Jasper. [address] [place] [address], [facility], [place]. tel:[phone] Office/outpat ient Visit, [facility], [address] [place] [address] [address], [place], [place], [id number], [place] tel:[phone] SEC [facility] No Information Mar-2 8-200 8 Krishnasamy Jasper. [address] [place] [address], [facility], [place]. tel:[phone] [facility], [address] [place] [address] [address], [place], [place], [id number], [place] tel:[phone] [facility] No Information Mar-2 5-200 8 Krishnasamy Jasper. [address] [place] [address], [facility], [place]. tel:[phone] Family History Family Member Type Diagnosis Age At Onset No Information Payers Payer name Insurance type Covered democrat ID Authoriza tion(s) No Information Social History Type Description Quantity Date Captured Comments Sex Female Smoking Status No Information Chief Complaint And Reason For Visit No Information Reason For Referral Reason For Referral No Information History Of Present Illness Encounter Date Complaint History Of Prese nt Illness No Information Functional Status Date Functional Assessmen t No Information Instructions Date Instruction Additional Infor mation No Information Assessments Type Assessment Date No Information Patient Care Teams Name Effective Dates (start - stop) Status Members No Information
[2025-03-16 18:23] VITALS: BP 135/84; PULSE 86; RESP 16; TEMP 36.6; O2SAT 100
[2025-03-16 21:07] LABS: Hematocrit 46.6 % (37.0-47.0); Hemoglobin 15.3 g/dL (12.0-15.0); Immature Granulocyte Percent A 0.9 % (0-0.5); Lymphocytes Absolute Auto 2.83 K/mm3 (0.9-3.2); Mean Corpuscular HGB Conc 32.8 g/dl (32-36); Mean Corpuscular Hemoglobin 31.9 pg (26-34); Mean Corpuscular Volume 97.1 fl (80-100); Nucleated Red Blood Cells Absolute Auto 0.000 K/mm3 (0.0-0.012); Nucleated Red Blood Cells Perc 0.0 % (0.0-0.2); Platelet Count Result 158 k/mm3 (150-375); Red Blood Count 4.80 M/mm3 (4.2-5.4); White Blood Count 11.1 K/mm3 (4.5-10.0)
[2025-03-16 21:23] LABS: Alanine Aminotransferase 61 U/L (6-35); Albumin Level 4.5 g/dL (3.5-5.1); Alkaline Phosphatase 196 U/L (38-126); Anion Gap 12 mmol/L (4-12); Aspartate Amino Transferase 50 U/L (14-36); Bilirubin,Total 0.5 mg/dL (0.2-1.3); Blood Urea Nitrogen 15 mg/dL (7-17); Calcium 8.9 mg/dL (8.4-10.2); Carbon Dioxide 30 mmol/L (22-30); Chloride 96 mmol/L (98-107); Estimated CRCL calculation 79 ml/min; Estimated Glomerular Filt Rate > 60; Glucose 233 mg/dL (65-110); Magnesium 1.9 mg/dL (1.6-2.3); Sodium 138 mmol/L (137-145); Total Protein 7.8 g/dL (6.3-8.2)
[2025-03-16 21:24] LABS: Beta-Hydroxybutyrate/Acetoace. 0.09 mmol/L (0.02-0.27)
[2025-03-16 21:29] LABS: Potassium 3.5 mmol/L (3.4-5.0)
[2025-03-16 23:25] VITALS: BP 127/80; PULSE 71; RESP 18; O2SAT 98
--- OUTSIDE RECORDS SUMMARY | 2025-03-16 23:38 | XMS_ITS | Encounter Summary ---
Author Organization [facility] Address [facility] [place] [address] Care Team Providers Care Computer Technology Teacher Name Role Phone Warren Cowan MD Primary Care Provider + [phone] Mandie Schaefer NP Primary Care Provider [phone] Tonia Mcrae MD Unavailable [phone] Encounter Details Date Type Department Care Team (Late st Contact Info) Description 12/09/2018 Abstract SFL CONVERSION [address] [place] [address] , Generic ConversionMD Social History Tobacco Use [...] on filedocumented in this encounter Care Teams Computer Technology Teacher Relationship Specialty Start Date End Date Warren Cowan MD [address] [address] PCP - General FAMILY PRACTICE 02/27/19 01/01/25 Mandie Schaefer NP [address] [place] [address] PCP - General FAMILY PRACTICE 01/02/25 Tonia Mcrae MD [address] [place] [address] Consulting Physician NEUROLOGY 01/10/25 documented as of this encounter
--- OUTSIDE RECORDS SUMMARY | 2025-03-16 23:39 | XMS_ITS | Encounter Summary ---
Author Organization [facility] Address [address] [facility] [address] [place] [address] Care Team Providers Care Director Sanitation Bureau Name Role Phone Warren Cowan MD Primary Care Prov ider Warren Cowan MD Primary Care Prov ider Encounter Details Date Type Department Care Team (Late st Contact Info) Description 09/12/2016 Orders Only [facility] ProviderRavi MD [address] [place] [address] Social History Tobacco Use Types Packs/Day Years Used Date Smoking Tobacco: Former Alcohol Use Standard Drinks/Week Comments No 0 (1 standard drink = 0.6 oz pur e alcohol) Comments Unknown Sex and Gender Information Value Date Recorded Sex Assigned at Not on file 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
--- OUTSIDE RECORDS SUMMARY | 2025-03-16 23:39 | XMS_ITS | Encounter Summary ---
Author Organization [facility] Address [address] [facility] [address] [place] [address] Care Team Providers Care Run Lead Name Role Phone Warren Cowan MD Primary Care Prov ider Warren Cowan MD Primary Care Prov ider Encounter Details Date Type Department Care Team (Late st Contact Info) Description 07/29/2016 Orders Only [facility] ProviderRavi MD [address] [place] [id number] Social History Tobacco Use Types Packs/Day Years Used Date Smoking Tobacco: Former Alcohol Use Standard Drinks/Week Comments No 0 (1 standard drink = 0.6 oz pur e alcohol) Comments Unknown Sex and Gender Information Value Date Recorded Sex Assigned at Not on file 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
--- OUTSIDE RECORDS SUMMARY | 2025-03-16 23:39 | XMS_ITS | Clinical Summary ---
Author Organization [facility] [address] Address [address] [place] [address] Care Team Providers Care Manager Gaming Name Role Phone Warren Cowan MD Primary [...] implantable loop record er 08/04/2015 Overview (02/18/2017): [address] [employer] reveal implantable loop recorder Dx; Syncope. 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 Gender Identity Not on file Sexual Orientation Not on file Obstetrics History Last Filed Vital Signs Vital Sign Reading Time Taken Comments Blood Pressure 126/76 08/28/2019 2:17 PM COLORER MACHINE Pulse 64 08/28/2019 2:17 PM COLORER MACHINE Temperature - - Respiratory Rate 16 03/09/2017 2:37 PM CDT Oxygen Saturation 96% 08/28/2019 2:17 PM COLORER MACHINE Inhaled Oxygen Concentration - - Weight 96.6 kg (213 lb) 08/28/2019 2:17 PM COLORER MACHINE Height 165.1 cm (5' 5) 08/28/2019 2:17 PM COLORER MACHINE Body Mass Index 35.45 08/28/2019 2:17 PM COLORER MACHINE Plan of Treatment Health Maintenance Due Date Last Done Comments Breast Cancer Screening-Mammogram 1965 Cervical Cancer Screening 1965 Colon Cancer Screening-Colonoscopy 1965 Depression Screening 1965 Hepatitis C Screening 1965 Hepatitis B Screening 1983 Regular Well Visit/Exam 18-64 1983 Zoster Vaccine (1 of 2) 2015 DTaP/Tdap/Td Vaccine (2 - Td or Tdap) 01/22/2024 01/21/2014 Influenza Vaccine (#1) 2025 Pneumococcal vaccine <65 Aged Out No longer eligible based on patient's age to complete this topic Medical Devices Implanted Type Area Dairy Frozen Manager Device Identifier Shelf Expiration Date Model / Serial / Lot Implantable Loop Recorder Implantable Loop Recorder Chest [employer] Insurance HEALTHCARE Care Teams Manager Gaming Relationship Specialty Start Date End Date Warren Cowan MD PCP - General 10/01/16
--- OUTSIDE RECORDS SUMMARY | 2025-03-16 23:39 | XMS_ITS | Encounter Summary ---
Author Organization [facility] Address [facility] [place] [address] Care Team Providers Care Training Administrator Name Role Phone Mandie Schaefer NP Primary Care Provider + [phone] Tonia Mcrae MD Unavailable [phone] Reason for Visit * Reason Onset Date Comments Results 01/15/2025 Encounter Details Date Type Department Care Team (Latest Contact Info) Description 01/15/2025 [facility] [address] [address] [place], [place] [id number] Jacque Bustamante RN COMPREHENSIVE METABOLIC PANEL, CBC W/DIFF AUTOMATED Social History Tobacco Use Types Packs/Day Years Used Date Smoking Tobacco: Former Cigarettes Q uit: 02/27/2009 Smokeless Tobacco: Never Alcohol Use Standard Drinks/Week Comments No 0 (1 standard drink = 0.6 oz pur e alcohol) [facility] Utilities Answer Date Recorded In the past 12 months has [facility] [employer], gas, oil, or water [employer] threatened to shut off services in your [...] any time in the past 12 m [facility], were you homeless or living in [...] 9:22 AM Luc Barcenas RN Active * [place] Suicide Severity Rating Scale (Screener/Recent Self-Report) Question [...] 01/15/2025 2:43 PM CDT Attempted to reach [facility] Mandie Schaefer's office (listed as pt's PCP) [...] is addressing. ----- Message ----- From: User, [email or web address] Sent: 01/11/2025 2:30 PM CDT To: Digna Maloney PA-C documented in this encounter Plan of Treatment Not on file documented as of this encounter Goals Goal Patient Goal Type Associated Problems Recent Progress Patient-Stated? 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, BUSINESS INTELLIGENCE ETL DEVELOPER documented as of this encounter Visit Diagnoses Not on filedocumented in this encounter Care Teams Training Administrator Relationship Specialty Start Date End Date Mandie Schaefer NP [address] [place] [address] PCP - General FAMILY PRACTICE 01/02/25 Tonia Mcrae MD [address] [place] [address] Consulting Physician NEUROLOGY 01/10/25 documented as of this encounter
--- OUTSIDE RECORDS SUMMARY | 2025-03-16 23:39 | XMS_ITS | Clinical Summary ---
Author Organization [facility] Address [facility] [place] [address] Care Team Providers Care Costume Technician Name Role Phone Mandie Schaefer NP Primary Care Provider [phone] Tonia Mcrae MD Unavailable [phone] Allergies No known active allergies Medications vitamin D2, ergocalciferol, (DRISDOL) 1.25 mg capsuleIndications :Vitamin D Deficiency Take 1 capsule by mouth every 30 (thirty) days. Indications: Vitamin D Deficiency 12/27/19 25 Active solifenacin succinate (VESICARE) 10 MG TabIndications:DIU RETIC Take 1 tablet (10 mg total) by mouth daily. Indications: DIURETIC NOT TAKING ANYMORE 10/26/19 25 Active pantoprazole EC (PROTONIX) 40 MG tabletIndications: GERD Take 1 tablet by mouth 2 (two) times daily. Indications: GERD 11/28/19 25 Active sucralfate (CARAFATE) 1 G tabletIndications: prevent ulcers Take 1 tablet by mouth 3 (three) times daily. Indications: prevent ulcers 12/25/19 25 Active baclofen (LIORESAL) 20 MG tabletIndications: Prolonged Muscle Relaxation Take 1 tablet by mouth nightly. Indications: Prolonged Muscle Relaxation 10/15/19 25 Active folic acid (FOLVITE) 1 MG tabletIndications: Folic Acid Supplementation Take 1 tablet by mouth daily. Indications: Folic Acid Supplementation Active methotrexate (TREXALL) 2.5 MG tabletIndications: cancer/arthiritis Take 3 tablets by mouth once a week. Indications: cancer/arthiritis Sundays11/23/19 25 Active meclizine (ANTIVERT) 25 MG tabletIndications: Dizziness Take 1 tablet by mouth 3 (three) times daily. Indications: Dizziness Active topiramate (TOPAMAX) 25 MG tabletIndications: HEADACHES Take 1 tablet by mouth nightly at bedtime. Indications: HEADACHES ON HOLD 02/06/20 25 Active levETIRAcetam (KEPPRA) 500 MG tabletIndications: Recurrent Seizures Take 3 tablets by mouth 2 (two) times daily. Indications: Recurrent Seizures Active pregabalin (LYRICA) 150 MG capsuleIndications :Pain Take 1 capsule by mouth 3 (three) times daily. Indications: Pain Active linezolid (ZYVOX) 600 MG tablet [The details of the medication are not available because there are pending changes by a home health clinician.] 28 tablet 01/07/20 25 Active Additional Information Patient taking differently:600 mg Oral 2 times daily,NOT TAKING ANYMORE, Indications: ANTIBIOTIC, Reported on 02/05/2025 Blood Glucose Monitoring Suppl ([employer] GLUCOMETER) w/Device KitIndications:tal betes 1 Units by Does not apply route daily. Please check morning daily fasting blood sugars. Pharmacy please dispense covered glucometer with appropriate test strips. 1 kit 01/07/20 25 Active furosemide (LASIX) 40 MG tabletIndications: Diuretic Therapy Take 1 tablet (40 mg total) by mouth daily. 30 tablet 01/07/20 25 Active methylPREDNISolone (MEDROL) 4 MG tabletIndications: Corticosteroid Therapy Take 1 tablet (4 mg total) by mouth daily. 30 tablet 01/07/20 25 Active acetaminophen (TYLENOL) 325 MG tabletIndications: pain Take 2 tablets (650 mg total) by mouth every 6 (six) hours as needed. Not to exceed 4000 mg of acetaminophen from all sources in 24 hours. 01/07/20 25 Active HYDROcodone-acetam inophen (NORCO) 5-325 MG tabletIndications: Acute Pain < 7 Day Supply Take 1 tablet by mouth every 6 (six) hours as needed for Pain. Indications: Acute Pain < 7 Day Supply Be careful when combining this medicine with tylenol (acetaminophen) because this medicine already contains acetaminophen. Do not exceed acetaminophen dose of 4000 mg in 24 hours. 28 tablet 01/07/20 25 Active polyethylene glycol (GLYCOLAX) packetIndications: Constipation Take 240 mLs (17 g total) by mouth daily as needed for Constipation. Dissolve powder in 240 mL water 14 each 01/07/20 25 Active polyvinyl alcohol-povidone (MURINE TEARS) 5-6 MG/ML ophthalmic solutionIndication s:dry eyes Place 1 drop into both eyes as needed for Dry eyes. 01/07/20 25 Active tamsulosin (FLOMAX) 0.4 MG CapIndications:Ove ractive Bladder Take 1 capsule (0.4 mg total) by mouth daily. 30 capsule 01/08/20 25 Active cefpodoxime (VANTIN) 200 MG tablet [The details of the medication are not available because there are pending changes by a home health clinician.] 56 tablet 01/07/20 25 Active Additional Information Patient taking differently:400 mg Oral 2 times daily,NOT TAKING ANYMORE, Indications: antibiotics, Reported on 02/05/2025 aspirin 81 MG chewable tabletIndications: Anticoagulant Therapy Chew 1 tablet by mouth daily. Indications: Anticoagulant Therapy ON HOLD FOR SURGERY Active insulin glargine (LANTUS) 100 UNIT/ML injection (VIAL)Indications: diabetes Inject 30 Units into the skin nightly at bedtime. Indications: diabetes PATIENT STATES SHE WAS NOT INSTRUCTED TO PICK THIS UP FROM THE PHARMACY UPON DISCHARGE SO CURRENTLY NOT TAKING ANY DIABETIC MEDS NOT TAKING 02/06/20 25 Active Semaglutide (OZEMPIC, 0.25 OR 0.5 MG/DOSE, SC)Indications:tal betes Inject 0.25 mg into the skin once a week. Indications: diabetes Just started 01/10/25 NOT TAKING ANYMORE, MAKES SICK 02/06/20 25 Active potassium chloride CR (K-TAB) 10 MEQ Tab CR tabletIndications: Abnormal Serum Potassium Level (Inactive) Take 20 mEq by mouth daily. Indications: Abnormal Serum Potassium Level 01/15/20 25 Active rOPINIRole (REQUIP) 1 MG tabletIndications: muscle spasms Take 1 mg by mouth nightly at bedtime. Indications: muscle spasms 01/19/20 25 Active atorvastatin (LIPITOR) 20 MG tabletIndications: Hypertension Take 40 mg by mouth nightly at bedtime. Indications: High Blood Pressure 06/11/20 25 Active Active Problems Problem Noted Date Diagnosed Date SEVERO (acute kidney injury) 01/03/2025 Hyperglycemia 01/02/2025 Encounters Date Type Department Care Team Description 02/19/2025 10:00 AM CDT Home Care Visit [facility] Home [place] [address] [place] [address] Sandra Herrera, RN SN OASIS DISCHARGE/ASSESSMENT 02/12/2025 11:00 AM CDT Home Care Visit [facility] Home Care [address] [place] [address] Kelsie Iraheta LPN SN HOME VISIT 02/12/2025 Home Care Visit [facility] Home Care [address] [place] [address] [place] [address] Sandra Herrera, RN CASE COMMUNICATION 02/09/2025 10:00 AM CDT Home Care Visit [facility] Home Care [address] [facility] [place] [address] Jackelyn Flannery, PT PT INITIAL EVALUATION 02/08/2025 9:00 AM CDT Home Care Visit [facility] Home [address] [place] [address] Sandra Herrera, RN SN HOME VISIT 02/07/2025 10:00 AM CDT Home Care Visit [facility] Home Care [address] [facility] [place] [address] Jackelyn Flannery, PT CASE COMMUNICATION 02/05/2025 10:00 AM CDT Home Care Visit [facility] Home Care [address] [place] [address] Sandra Herrera, RN SN OASIS START OF CARE 02/05/2025 Plan of Care Documentation [facility] [place] [address] [place] [address] 01/28/2025 Scan HEALTH INFO SRVCS Scanned, [facility] 01/17/2025 11:37 AM CDT Anesthesia Event [facility] [place] [address] Marcellus Mary MD Jackson, Samantha Rae, FNP 01/17/2025 11:36 AM CDT - 01/17/2025 1:01 PM CDT Surgery [facility] [place] [address] Isai Stanton MD CYSTOSCOPY WITH RIGHT URETEROSCOPY, STONE REMOVAL, RIGHT RETROGRADE PYELOGRAM, AND RIGHT STENT REMOVAL 01/17/2025 8:15 AM CDT - 01/17/2025 2:19 PM CDT Hospital En[facility] [place] [address] Isai Stanton MD Discharge Disposition: Home or Self Care (Routine Discharge) 01/17/2025 Travel 01/17/[address] [place] [address] Jose Juan Mi MD 01/15/2025 Results Follow-Up [facility]Surg 3rd [place] [address] Jacque Bustamante RN COMPREHENSIVE METABOLIC PANEL, CBC W/DIFF AUTOMATED 01/14/2025 8:00 AM CDT Home Care Visit [facility] Home [place] [address] [place] [address] Meeta Coronado RN SN NON ADMIT SOC 01/11/2025 2:04 PM CDT - 01/11/2025 11:59 PM CDT Hospital [facility] [place] [address] Isai Stanton MD Discharge Disposition: Home or Self Care (Routine Discharge) 01/11/2025 2:03 PM CDT Hospital Encounter [facility] [place] [address] Digna Maloney PA-C Discharge Disposition: Home or Self Care (Routine Discharge) 01/11/2025 2:00 PM CDT - 01/11/2025 2:02 PM CDT Hospital Encounter [facility] [place] [place] [address] Mandie Schaefer, BALJEET Discharge Disposition: Home or Self Care (Routine Discharge) 01/11/[address] [facility] [place] [address] Mandie Schaefer NP 01/11/2025 Travel 01/10/2025 Travel 01/08/2025 Hospital Follow-up Call [facility] [place] [address] Viky Pereira LPN Follow Up Call (NATHALIE 01/02-01/06/25) 01/03/2025 11:53 AM CDT - 01/03/2025 12:[address] [facility] [place] [address] Isai Stanton MD CYSTOSCOPY, RIGHT RETROGRADE PYELOGRAM, RIGHT URETERAL STENT PLACEMENT 01/03/2025 11:46 AM CDT Anesthesia Event [facility] [place] [place] [address] Shamar Mead MD Butler, Sarah Elyse S, CRNA 01/02/2025 2:15 PM CDT - 01/06/2025 10:39 AM CDT Hospital Encounter [facility] 3rd Floor [facility] [place] [address] NormansRoberto peraza MD Lamonica, Kandace C, MD Doan, Melissa K, PA Poettker, Amber L, PA-C Weakness Discharge Disposition: Home with Home [...] drink = 0.6 oz pur e alcohol) OASIS D0700: Social Isolation Answer Da te Recorded Frequency of experiencing loneliness or isolatio n Never 02/19/2025 OASIS A1250: Transportation Answer Date Recorded Lack of Transportation (Medical) No 02/19/2025 Lack of Transportation (Non-Medical) No 02/19/2025 Patient Unable or Declines to Respond No 02/19/2025 OASIS B1300: Health Literacy Answer Vicente e Recorded Frequency of needing help to read materials from doctor or pharmacy Never 02/19/2025 [facility] Utilities Answer Date Recorded In the past 12 months has e [employer] gas, oil, or water [employer] threatened to shut off services in your [...] any time in the past [address] [facility], were you homeless or living in a [place] health care facility (including now)? No 01/02/2025 Comments No Sex and Gender Information Value Date Recorded Sex Assigned at Female 01/02/2025 2:26 PM CDT Legal Sex Female 1:10 AM CDT Gender Identity Not on file Sexual Orientation Not on file Last Filed Vital Signs Vital Sign Reading Time Taken Comments Blood Pressure 114/68 02/19/2025 9:58 AM CDT Pulse 69 02/19/2025 9:58 AM CDT Temperature 36.3 C (97.4 F) 02/19/2025 9:58 AM CDT Respiratory Rate 18 02/19/2025 9:58 AM CDT Oxygen Saturation 95% 02/19/2025 9:58 AM CDT Inhaled Oxygen Concentration - - [...] 2 - Td or Tdap) 01/22/2024 01/21/2014 PHQ-2 (Physician Linch) 07/04/2024 COVID-19 Vaccine (1 - 2023-2 5 season) 2025 Hemoglobin A1C 04/05/2025 01/03/2025 Hepatitis C Completed 01/03/2025 Meningococcal B Vaccine Aged Out No l onger eligible based on patient's age to complete this topic Meningococcal Vaccine Aged Out No sahley jayleen eligible based on patient's age to complete this topic RSV Immunizations Under 20 Months Aged Out No longer eligible based on patient's age to complete this topic Goals Goal Patient Goal Type Associated Problems Recent Progress Patient-Stated? 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 Devices Explanted Type Area Translator And Interpreter Device Identifier Shelf Expiration Date Model / Serial / Lot Stent Ureteral Pigtail 6fr 24cm Crv Taper Tip - [id number] Implanted:Qty : 1 on 01/03/2025 by Isai Stanton MD at [facility] Explanted:Qty : 1 on 01/17/2025 by Isai Stanton MD at [facility] Stent Right: Ureter [employer] [id number] 05/31/2027 [id number] / / [id number] Procedures Procedure Name Priority Date/Time Associated Diagnosis Comments POCT GLUCOSE - DOCKED DEVICE Routine 01/17/2025 12:46 PM CDT SURG XR RETROGRD UROGRAPHY Routine 01/17/2025 12:37 PM CDT STONE ANALYSIS Routine 01/17/2025 12:14 PM CDT LITHOTRIPSY INLCUDING INSERTION OF INDWELLING [...] - 99 mg/dL 01/17/2025 12:[address] [facility] 01/17/2025 12:4 6 PM CDT us Isai Stanton MD POCT ORDERABLES - DEVICE Final Result [facility] [address] [place] [address], [place] [phone] * SURG XR RETROGRD UROGRAPHY (01/17/2025 12:37 [...] 7:05 AM Narrative 01/18/2025 7:05 AM CDT [place] [address] FLUOROSCOPY CONTROL ONLY Procedure Note Uri Olivera MD - 01/18/2025 [place] [address] FLUOROSCOPY CONTROL ONLY Impression: No radiologic interpretation will be issued. The report and documentationof this exam will reside in the patient's permanent medical record and inthe attending physician's procedure note. Ordered By: ISAI STANTON Interpreted By: Uri Olivera MD, 01/18/2025 7:05 AM us Isai Stanton MD IMAGES ONLY Final Result * STONE ANALYSIS (01/17/2025 12:14 PM CDT) SOURCE KIDNEY STONE 01/17/2025 12:[address] [facility] STONE ANALYSIS COMPONENT REPORT 01/25/2025 12:12 AM CDT [employer] [facility] Comment: Calcium Oxalate Dihydrate (Weddellite) 25% Calcium Oxalate Monohydrate (Whewellite) 50% Carbonate Apatite (Dahllite) 25% STONE ANALYSIS WEIGHT 0.034 g 01/25/2025 12:12 AM CDT [employer] [facility] [place] Comment: Formalin, surgical gel, tape adhesive or transport media interfere with the analytical procedure. Follow up testing with the UroRisk(R) Panel is suggested for affected samples, if clinically indicated. This test was developed and its analytical performance characteristics have been determined by [employer]. It has not been cleared or approved by the FDA. This assay has been validated pursuant to the CLIA regulations and is used for clinical purposes. Test performed by [facility] [address] [place] [id number] Survey Researcher: Sandra Casey MD,PHD,TAO Test Reported by [facility], [employer] [place], [address] [place], [place] Warren Swanson M.D., Ph.D., Director of Laboratories , CLIA [id number] STONE CALCULUS SPECIMEN / Unknown 01/17/2025 12:14 PM CDT Isai Stanton MD BODY FLUIDS AND STOOLS ORDERABL ES Final Result [facility] [address] [place], [place] , [place] [phone] [facility] [address] [place] [address], [place] [phone] * (ABNORMAL) COMPREHENSIVE METABOLIC PANEL (01/11/2025 2:18 PM CDT) Only the most recent of3 resultswithin the time period is included. Pathologist [facility] GLUCOSE 175(H) 70 - 99 MG/DL 01/11/2025 2:[address] [facility] BUN 16 7 - 18 MG/DL 01/11/2025 2:[address] [facility] CREATININE S/P/B 1.18(H) 0.55 - 1.02 MG/DL 01/11/2025 2:[address] [facility] SODIUM S/P/B 138 136 - 145 MMOL/L 01/11/2025 2:[address] [facility] POTASSIUM S/P/B 3.1(L) 3.5 - 5.1 MMOL/L 01/11/2025 2:[address] [facility] CHLORIDE S/P/B 104 97 - 115 MMOL/L 01/11/2025 2:[address] [facility] CO2 27.4 21 - 32 MMOL/L 01/11/2025 2:[address] [facility] CALCIUM S/P/B 9.1 8.5 - 10.1 MG/DL 01/11/2025 2:[address] [facility] BILIRUBIN TOTAL S/P/B 0.7 0.2 - 1.2 MG/DL 01/11/2025 2:[address] [facility] Comment: THIS ASSAY IS NOT RECOMMENDED FOR PATIENTS UNDERGOING TREATMENT WITH ELTROMBOPAG DUE TO THE POTENTIAL FOR FALSELY ELEVATED RESULTS. TOTAL PROTEIN S/P/B 6.8 6.4 - 8.2 G/DL 01/11/2025 2:[address] [facility] ALBUMIN S/P/B 3.3(L) 3.4 - 5.0 G/DL 01/11/2025 2:[address] [facility] AST 42(H) 15 - 37 U/L 01/11/2025 2:[address] [facility] ALT 61(H) 14 - 55 U/L 01/11/2025 2:[address] [facility] ALKALINE PHOSPHATASE S/P/B 225(H) 50 - 136 U/L 01/11/2025 2:[address] [facility] ANION GAP 6.6 2 - 10 MMOL/L 01/11/2025 2:[address] [facility] BUN CREATININE RATIO 13.6 6 - 26 01/11/2025 2:[address] [facility] A/G RATIO 0.9(L) 1.0 - 2.0 RATIO 01/11/2025 2:[address] [facility] GFR ESTIMATE 53(L) >90 ML/MIN/1.7 3 M2 01/11/2025 2:[address] [facility] Comment: NOTE: eGFR is not calculated for patients <18 years of age or gender unknown. This is an estimated GFR calculation using the new CKD EPI creatinine equation without race and so does not require a correction factor for race. This estimated GFR should not be used for calculating drug doses. 01/11/2025 2:18 PM CDT Digna Maloney PA-C LABORATORY Final Resu lt [facility] [address] [place] [address], [place] [phone] * (ABNORMAL) CBC W/DIFF AUTOMATED (01/11/2025 2:18 PM CDT) Only the most recent of6 resultswithin the time period is included. WBC 8.81 4.5 - 11.0 x10'3/uL 01/11/2025 2:[address] [facility] RBC 4.16(L) 4.20 - 5.40 x10'6/uL 01/11/2025 2:[address] [facility] HGB 14.3 12.0 - 16.0 G/DL 01/11/2025 2:[address] [facility] HCT 42.2 38.0 - 48.0 % 01/11/2025 2:[address] [facility] MCV 101.4(H) 81.0 - 99.0 FL 01/11/2025 2:[address] [facility] MCH 34.4(H) 27.0 - 31.0 PG 01/11/2025 2:[address] [facility] MCHC 33.9 32.0 - 36.0 G/DL 01/11/2025 2:[address] [facility] RDW 16.2(H) 11.5 - 14.5 % 01/11/2025 2:[address] [facility] PLT 182 130 - 400 x10'3/uL 01/11/2025 2:[address] [facility] MPV 12.6(H) 9.3 - 12.2 FL 01/11/2025 2:[address] [facility] DIFFERENTIAL TYPE AUTOMATED DIFFERENTIAL 01/11/2025 2:[address] [facility] NEUTROPHILS % 63.7 % 01/11/2025 2:[address] [facility] LYMPHOCYTES % 20.4 % 01/11/2025 2:[address] [facility] MONOCYTES % 9.3 % 01/11/2025 2:[address] [facility] EOSINOPHILS 5.0 % 01/11/2025 2:[address] [facility] BASOPHILS 0.9 % 01/11/2025 2:[address] [facility] IMMATURE GRANS % 0.7 % 01/12/20 25 2:[address] [facility] ABS. NEUTROPHILS 5.61 1.80 - 7.70 x10'3/uL 01/11/2025 2:[address] [facility] ABS. LYMPHOCYTES 1.80 1.00 - 4.80 x10'3/uL 01/11/2025 2:[address] [facility] ABS. MONOCYTES 0.82 0.24 - 0.86 x10'3/uL 01/11/2025 2:[address] [facility] ABS. EOSINOPHILS 0.44(H) 0.04 - 0.36 x10'3/uL 01/11/2025 2:[address] [facility] ABS. BASOPHILS 0.08 0.01 - 0.08 x10'3/uL 01/11/2025 2:[address] [facility] ABS. IMMATURE GRANULOCYTES 0.06 0.00 - 0.49 x10'3/uL 01/11/2025 2:[address] [facility] 01/11/2025 2:18 PM CDT Digna Maloney PA-C LABORATORY Final Resu lt [facility] [address] [place] [address], [place] [phone] * URINE BACTERIA CULTURE (01/11/2025 2:11 PM CDT) Only the most recent of2 resultswithin the time period is included. SPEC DESCRIPTION URINE CLEAN CATCH 01/11/2025 2:[address] [facility] SPECIAL REQUESTS NO SPECIAL REQUEST 01/11/2025 2:[address] [facility] CULTURE RESULT NO GROWTH 2 DAYS 01/13/2025 8:[address] [facility] URINE SPECIMEN OBTAINED BY CLEAN CATCH PROCEDURE / Unknown 01/11/2025 2:11 PM CDT 01/11/2025 2:21 PM CDT us Isai Stanton MD MICROBIOLOGY - GENERAL ORDERABL ES Final Result [facility] [address] [place] [address], * (ABNORMAL) BASIC METABOLIC PANEL (01/06/2025 4:58 AM CDT) Only the most recent of3 resultswithin the time period is included. GLUCOSE 149(H) 70 - 99 MG/DL 01/06/2025 5:[address] [facility] BUN 17 7 - 18 MG/DL 01/06/2025 5:[address] [facility] CREATININE S/P/B 0.95 0.55 - 1.02 MG/DL 01/06/2025 5:[address] [facility] SODIUM S/P/B 142 136 - 145 MMOL/L 01/06/2025 5:[address] [facility] POTASSIUM S/P/B 3.4(L) 3.5 - 5.1 MMOL/L 01/06/2025 5:[address] [facility] CHLORIDE S/P/B 109 97 - 115 MMOL/L 01/06/2025 5:[address] [facility] CO2 28.1 21 - 32 MMOL/L 01/06/2025 5:[address] [facility] CALCIUM S/P/B 8.9 8.5 - 10.1 MG/DL 01/06/2025 5:[address] [facility] ANION GAP 4.9 2 - 10 MMOL/L 01/06/2025 5:[address] [facility] BUN CREATININE RATIO 17.9 6 - 26 01/06/2025 5:[address] [facility] GFR ESTIMATE 69(L) >90 ML/MIN/1.7 3 M2 01/06/2025 5:[address] [facility] Comment: NOTE: eGFR is not calculated for patients <18 years of age or gender unknown. This is an estimated GFR calculation using the new CKD EPI creatinine equation without race and so does not require a correction factor for race. This estimated GFR should not be used for calculating drug doses. 01/06/2025 4:58 AM CDT Isai Stanton MD LABORATORY Final Result [facility] [address] [place] [address], * VITAMIN B-12 (01/05/2025 3:50 AM CDT) VITAMIN B12 S/P/B 483 254 - 1,320 PG/ML 01/05/2025 2:[address] [facility] 01/05/2025 3:50 AM CDT Digna Maloney PA-C LABORATORY Final Resu lt [facility] [address] [place] [address], [place] [phone] * FOLIC ACID SERUM (01/05/2025 3:50 AM CDT) FOLATE 16.6 3.1 - 17.5 NG/ML 01/05/2025 2:[address] [facility] 01/05/2025 3:50 AM CDT Digna Maloney PA-C LABORATORY Final Resu lt Performing Organization Address City/[facility]/ZIP Co de Phone Number [facility] [address] [place] [address], [place] [phone] * (ABNORMAL) PHOSPHORUS, INORGANIC PHOSPHATE (01/04/2025 4:23 AM CDT) Only the most recent of3 resultswithin the time period is included. PHOSPHORUS 2.1(L) 2.5 - 4.9 MG/DL 01/04/2025 5:[address] [facility] 01/04/2025 4:23 AM CDT Isai Stanton MD LABORATORY Final Result Performing Organization Address City/[facility]/ZIP Co de Phone Number [facility] [address] [place] [address], [place] [phone] * MAGNESIUM (01/04/2025 4:23 AM CDT) Only the most recent of3 resultswithin the time period is included. MAGNESIUM 2.2 1.8 - 2.4 MG/DL 01/04/2025 5:[address] [facility] 01/04/2025 4:23 AM CDT Isai Stanton MD LABORATORY Final Result Performing Organization Address City/[facility]/ZIP Co de Phone Number [facility] [address] [place] [address], [place] [phone] * EEG (01/03/2025 10:37 PM CDT) Narrative [facility] - 01/03/2025 10:37 PM CDT [...] NEUROLOGY ORDERABLES Edited Re sult - Final [facility] [address] [place] [address], * (ABNORMAL) HEMOGLOBIN, GLYCOSYLATED (01/03/2025 6:41 AM CDT) HGB A1C 10.4(H) <5.7 % 01/03/2025 10:[address] [facility] Comment: ADA GUIDELINES 2010 5.7 TO 6.4% INCREASED RISK OF DIABETES > OR = 6.5% CONSISTENT WITH DIABETES ESTIMATED AVG GLUCOSE 252 mg/dL 01/03/2025 10:[address] [facility] 01/03/2025 6:41 AM CDT Ruth Salgado SCANNING CLERK LABORATORY Final Resul t Performing Organization Address [facility] Co de Phone Number [facility] [address] [place] [address], * HEPATITIS PANEL,ACUTE (01/03/2025 6:41 AM CDT) HEPATITIS B SURFACE AG NON-REACTI VE NON-REACTI VE 01/03/2025 9:[address] [facility] HEP B CORE IGM NON-REACTI VE NON-REACTI VE 01/03/2025 9:[address] [facility] HAV IGM NON-REACTI VE NON-REACTI VE 01/03/2025 9:[address] [facility] HEPATITIS C AB NON-REACTI VE NON-REACTI VE 01/03/2025 9:[address] [facility] 01/03/2025 6:41 AM CDT Ruth Salgado SCANNING CLERK LABORATORY Final Resul t [facility] [address] [place] [address], [place] [phone] * XR CHEST PORTABLE (01/02/2025 6:45 PM CDT) Anatomical Region Laterality Modality Chest Radiographic Malgorzata ging 01/02/2025 7:32 PM CDT Impressions 01/02/2025 7:34 PM CDT IMPRESSION: Minimal left basilar opacity likely reflecting minimal left basilar atelectasis. Referred By: Interpreted By: Patric Oscar DO, 01/02/2025 7:32 PM Narrative 01/02/2025 7:34 PM [address]T [address] [address] Examination: XR CHEST PORTABLE Exam time: 01/02/2025 [...] Procedure Note Patric Oscar DO - 01/02/[address] [address] Examination: XR CHEST PORTABLE Exam time: 01/02/2025 [...] DO, 01/02/2025 7:32 PM us Ruth Salgado SCANNING CLERK GENERAL IMAGING Final Resul t * PRO-BRAIN NATRIURETIC PEPTIDE (01/02/2025 6:21 PM CDT) PRO-B TYPE NATRIURETIC PEPTIDE 67 <125 PG/ML 01/02/2025 7:[address] [facility] Comment: CUT POINTS ESTABLISHED BY INTERNATIONAL [...] 01/02/2025 6:21 PM CDT us Ruth Salgado SCANNING CLERK LABORATORY Final Resul t [facility] [address] [place] [address], [place] [phone] * (ABNORMAL) POTASSIUM, SERUM (01/02/2025 6:21 PM CDT) POTASSIUM S/P/B 2.9(LL) 3.5 - 5.1 MMOL/L 01/02/2025 7:[address] [facility] Comment: Critical Result(s) Called at: 19:16:41 on 01/02/2025 by: Corie Valdez to and read back by:DORA GOODRICH 01/02/2025 6:21 PM CDT us Ruth Salgado SCANNING CLERK LABORATORY Final Resul t [facility] [address] [place] [address], [place] [phone] * CT ABD+PEL W CON (01/02/2025 6:11 [...] 7:22 PM Narrative 01/02/2025 7:32 PM CDT [facility] [address] [place], [place] [address] EXAMINATION: CT ABD+PEL W CON EXAM DATE: [...] Procedure Note Patric Oscar DO - 01/02/2025 [facility] [address] [place], [place] [address] EXAMINATION: CT ABD+PEL W CON EXAM DATE: [...] By: Patric Oscar DO, 01/02/2025 7:22 PM us Ruth Salgado SCANNING CLERK CT Final Resul t * (ABNORMAL) KEPPRA LEVEL (01/02/2025 5:29 PM CDT) KEPPRA 102.6(H) 6.0 - 46.0 mcg/mL 01/05/2025 5:22 PM CDT [employer] [facility] Comment: THIS RESULT HAS BEEN VERIFIED BY REPEAT ANALYSIS. Brivaracetam (Briviact(R), Rikelta(R)) exhibits significant cross-reactivity in the Levetiracetam (Keppra(R), Spritam(R)) immunoassay. If Brivaracetam has been prescribed, order test code 07947 Levetiracetam by LCMSMS. Test Performed by [facility], [employer] [facility], [address] [place] [address] Warren Swanson M.D., Ph.D., Director of Laboratories , [place] [id number] 01/02/2025 5:29 PM CDT Rtuh Salgado SCANNING CLERK LABORATORY Final Resul t [employer] [address] , * (ABNORMAL) DRUG SCREEN RAPID (01/02/2025 4:34 PM CDT) AMPHETAMINE (U) NEGATIVE NEGATIVE 5:[address] [facility] BARBITURATES SCREEN (U) NEGATIVE NEGATIVE 01/02/2025 5:[address] [facility] BENZODIAZEPINES SCREEN (U) NEGATIVE NEGATIVE 01/02/2025 5:[address] [facility] CANNABINOIDS SCREEN (U) NEGATIVE NEGATIVE 01/02/2025 5:[address] [facility] COCAINE METABOLITES (U) NEGATIVE NEGATIVE 01/02/2025 5:[address] [facility] METHADONE (U) NEGATIVE NEGATIVE 01/02/2025 5:[address] [facility] OPIATE SCREEN (U) POSITIVE(A) NEGATIVE 2024 5:[address] [facility] PHENCYCLIDINE PCP (U) NEGATIVE NEGATIVE 01/02/2025 5:[address] [facility] Comment: NOTE: RESULTS OF THIS DRUG SCREEN SHOULD BE USED FOR MEDICAL PURPOSES ONLY AND NOT FOR LEGAL OR EMPLOYMENT PURPOSES. POSITIVE RESULTS ARE NOT CONFIRMED. MEDICATIONS CONTAINING EPHEDRINE MAY CAUSE FALSE POSITIVE AMPHETAMINE CALL [phone], LAB, TO REQUEST CONFIRMATION TESTING. IF CREATININE IS <40 mg/dL. RECOLLECTION IS SUGGESTED. AMPHETAMINE- 500 NG/ML BARBITURATE- 200 NG/ML BENZODIAZEPINES- 200 NG/ML THC- 50 NG/ML COCAINE- 150 NG/ML METHADONE- 300 NG/ML OPIATE- 300 MG/ML PCP- 25 NG/ML CREATININE (U) 36.2 28 - 217 MG/DL 01/02/2025 5:[address] [facility] URINE SPECIMEN / Unknown 01/02/2025 4:34 PM CDT Ruth Salgado SCANNING CLERK URINE ORDERABLES Final Resu lt [facility] [address] [place] [address], * (ABNORMAL) URINALYSIS (01/02/2025 4:34 PM CDT) SPECIMEN TYPE URINE CLEAN CATCH 01/02/2025 4:[address] [facility] COLOR (U) LIGHT YELLOW 01/02/2025 5:[address] [facility] TRANSPARENCY TURBID 01/02/2025 5:[address] [facility] SPECIFIC GRAVITY (U) 1.011 1.001 - 1.030 01/02/2025 5:[address] [facility] U PH 6.5 5.0 - 9.0 01/02/2025 5:[address] [facility] LEUKOCYTES (U) 25(A) NEGATIVE 01/02/2025 5:[address] [facility] NITRITES 1+(A) NEGATIVE 01/02/2025 5:[address] [facility] PROTEIN RANDOM (U) NEGATIVE <30 MG/DL 01/02/2025 5:[address] [facility] GLUCOSE (U) >1000(A) NORMAL MG/DL 01/02/2025 5:[address] [facility] KETONES MG/DL (U) NEGATIVE NEGATIVE MG/DL 01/02/2025 5:[address] [facility] UROBILINOGEN NORMAL NORMAL MG/DL 01/02/2025 5:[address] [facility] BILIRUBIN (U) NEGATIVE NEGATIVE MG/DL 01/02/2025 5:[address] [facility] BLOOD (U) TRACE(A) NEGATIVE 01/02/2025 5:[address] [facility] WBC/HPF 7(H) <6 /HPF 01/02/2025 5:[address] [facility] RBC/HPF 5 <6 /HPF 01/02/2025 5:[address] [facility] BACTERIA (U) RARE(A) NONE /HPF 01/02/2025 5:[address] [facility] SQUAMOUS EPITHELIALS RARE /HPF 01/02/2025 5:[address] [facility] URINE SPECIMEN OBTAINED BY CLEAN CATCH PROCEDURE / Unknown 01/02/2025 4:34 PM CDT us Constanza Helms PAPER DELIVERER URINE ORDERABLES Final Result [facility] [address] [place] [address], [place] [phone] * ECG 12 lead (01/02/2025 3:39 PM CDT) 01/02/2025 3:39 PM CDT Narrative [facility] - 01/02/2025 4:28 PM CDT [place] Test Date: 2025-01-02 Pat Name: [facility] Department: 41 Room: Gender: Female Dispatcher Tow Truck: [id number] : 1965 Requested By: CONSTANZA HELMS Order Number: [id number] Reading MD: Anibal Holly Measurements Intervals Diller Rate: 64 P: 52 MN: 169 QRS: 14 QRSD: 89 T: 26 QT: 410 QTc: 425 Interpretive Statements SINUS RHYTHM Compared to ECG 03/20/2019 12:09:38 T-wave abnormality no longer present Possible ischemia no longer present Procedure Note Anibal Holly MD - 01/02/2025 [facility] Test Date: 2025-01-02 Pat Name: [facility] Department: 41 Room: Gender: Female Dispatcher Tow Truck: [id number] : 1965 Requested By: CONSTANZA HELMS Order Number: [id number] Reading MD: Anibal Holly Measurements Intervals Diller Rate: 64 P: 52 MN: 169 QRS: 14 QRSD: 89 T: 26 QT: 410 QTc: 425 Interpretive Statements SINUS RHYTHM Compared to ECG 03/20/2019 12:09:38 T-wave abnormality no longer present Possible ischemia no longer present us Constanza Helms PAPER DELIVERER ECG ORDERABLES Final Result [facility] * CT HEAD WO CON (01/02/2025 3:21 PM CDT) Anatomical Region Laterality Modality Head Computed Tomogra phy 01/02/2025 4:04 PM CDT Impressions 01/02/2025 4:12 PM CDT IMPRESSION: Normal noncontrast head CT. Referred By: Interpreted By: David Bray MD, 01/02/2025 4:04 PM Narrative 01/02/2025 4:12 PM [address] [address] EXAM: CT HEAD WO CON DATE: 01/02/2025 [...] Procedure Note David Bray MD - 01/02/[address] [address] EXAM: CT HEAD WO CON DATE: 01/02/2025 [...] David Bray MD, 01/02/2025 4:04 PM Constanza Luc Helms PAPER DELIVERER CT Final Result * TSH W/REFLEX (01/02/2025 2:46 PM CDT) TSH 2.030 0.358 - 3.74 uIU/ML 01/02/2025 5:[address] [facility] Comment: HIGH DOSES OF BIOTIN MAY INTERFERE WITH THIS TEST RESULT. CORRELATION TO CLINICAL HISTORY AND PRESENTATION RECOMMENDED. FREE T4 NOT INDICATED 01/02/2025 2:46 PM CDT Ruth Salgado SCANNING CLERK LABORATORY Final Resul t Performing Organization Address City/[facility]/ZIP Co de Phone Number [facility] [address] [place] [address], * (ABNORMAL) AMMONIA (01/02/2025 2:46 PM CDT) AMMONIA 40(H) 11 - 32 UMOL/L 01/02/2025 5:[address] [facility] 01/02/2025 2:46 PM CDT Ruth Salgado SCANNING CLERK LABORATORY Final Resul t Performing Organization Address City/[facility]/ZIP Co de Phone Number [facility] [address] [place] [address], [place] [phone] * LIPASE (01/02/2025 2:46 PM CDT) LIPASE 27 13 - 75 UNITS/L 01/02/2025 5:[address] [facility] 01/02/2025 2:46 PM CDT Ruth Salgado SCANNING CLERK LABORATORY Final Resul t Performing Organization Address City/[facility]/ZIP Co de Phone Number [facility] [address] [place] [address], [place] [phone] * PROLACTIN (01/02/2025 2:46 PM CDT) PROLACTIN 6.1 NG/ML 01/02/2025 6:[address] [facility] Comment:FEMALE REFERENCE RAN GE (NON-): 4.8-23.3 01/02/2025 2:46 PM CDT Ruth Salgado SCANNING CLERK LABORATORY Final Resul t Performing Organization Address [facility] Co de Phone Number [facility] [address] [place] [address], [place] [phone] * CK (CPK) (01/02/2025 2:46 PM CDT) CPK 131 21 - 215 U/L 01/02/2025 5:[address] [facility] 01/02/2025 2:46 PM CDT Ruth Salgado SCANNING CLERK LABORATORY Final Resul t Performing Organization Address City/[facility]/ZIP Co de Phone Number [facility] [address] [place] [address], [place] [phone] from Last 3 Months Insurance [employer] Advance Directives * Full Code (Latest Code Status on File) Date Activated Date Inactivated Comments 02/05/2025 10:41 PM * Full Code Date Activated Date Inactivated Comments 01/02/2025 5:48 PM 01/06/2025 12:55 PM Care Teams Costume Technician Relationship Specialty Start Date End Date Mandie Schaefer NP [address] [place] [address] PCP - General FAMILY PRACTICE 01/02/25 Tonia Mcrae MD [address] [place] [address] Consulting Physician NEUROLOGY 01/10/25
--- OUTSIDE RECORDS SUMMARY | 2025-03-16 23:39 | XMS_ITS | Encounter Summary ---
Author Organization [facility] Address [address] [facility] [address] [place] [address] Care Team Providers Care Debridging Machine Operator Name Role Phone Warren Cowan MD Primary Care Prov ider Encounter Details Date Type Department Care Team (Late st Contact Info) Description 10/24/2016 Orders Only [facility] ProviderRavi MD [address] [place] [address] Social History Tobacco Use Types Packs/Day Years Used Date Smoking Tobacco: Former Alcohol Use Standard Drinks/Week Comments No 0 (1 standard drink = 0.6 oz pur e alcohol) Comments Unknown Sex and Gender Information Value Date Recorded Sex Assigned at Not on file Legal Sex Female 3:44 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
--- OUTSIDE RECORDS SUMMARY | 2025-03-16 23:39 | XMS_ITS | Clinical Summary ---
Author Organization [facility] Sumaya Weller Address [address] [place] [address] Care Team Providers Care Shop Fitter Name Role Phone Warren Cowan MD Primary Care Provider [phone] Allergies No known active allergies Medications levETIRAcetam [...] mouth. Activ e naloxone (NARCAN) 4 mg/spray [facility], Non-Aerosol EMERGENCY USE ONLY: Administer 1 spray [...] Encounters Date Type Department Care Team Description 02/05/2025 External Device Data [facility] ABSTRACTION Provider, Abstract 12/25/2024 External Device Data [facility] ABSTRACTION Provider, [...] Comments Blood Pressure 102/64 06/18/2024 10:55 AM TALENT ACQUISITION LEAD Pulse 55 06/18/2024 10:55 AM TALENT ACQUISITION LEAD Temperature 36.5 C (97.7 F) 06/18/2024 10:55 AM TALENT ACQUISITION LEAD Respiratory Rate 15 06/18/2024 10:5 5 AM TALENT ACQUISITION LEAD Oxygen Saturation 97% 06/18/2024 10: 55 AM TALENT ACQUISITION LEAD Inhaled Oxygen Concentration - - Weight 100.3 kg (221 lb 3.2 oz) 024 10:55 AM TALENT ACQUISITION LEAD Height 157.5 cm (5' 2) 11/03/2021 3:41 PM CDT Body Mass Index 40.46 11/03/2021 3:41 PM CDT Plan of Treatment Upcoming Encounters Date Type Department Care Team (Late st Contact Info) Description 06/18/2025 10:00 AM TALENT ACQUISITION LEAD Office Visit [facility] Oncology and Hematology - [place] [address] [facility] [address] [place] [address] Aki Guido MD [address] [facility] [address] [place] [address] Health Maintenance Due Date Last [...] 2) 2015 INFLUENZA VACCINE (#1) 2025 Insurance [facility] Address: [place] [address] Care Teams Shop Fitter Relationship Specialty Start Date End Date Warren Cowan MD PCP - General Family Practice 11/01/19
--- OUTSIDE RECORDS SUMMARY | 2025-03-16 23:39 | XMS_ITS | Encounter Summary ---
Author Organization [facility] Address [address] [facility] [address] [place] [address] Care Team Providers Care Coremaker Experimental Name Role Phone Warren Cowan MD Primary Care Prov ider Warren Cowan MD Primary Care Prov ider Encounter Details Date Type Department Care Team (Late st Contact Info) Description 06/17/2016 Orders Only [facility] ProviderRavi MD [address] [place] [address] Social History Tobacco Use Types Packs/Day Years Used Date Smoking Tobacco: Former Alcohol Use Standard Drinks/Week Comments No 0 (1 standard drink = 0.6 oz pur e alcohol) Comments Unknown Sex and Gender Information Value Date Recorded Sex Assigned at Not on file Legal 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
--- OUTSIDE RECORDS SUMMARY | 2025-03-16 23:39 | XMS_ITS | Encounter Summary ---
Author Organization [facility] Address [address] [place] [address] Care Team Providers Care Multicultural Services Librarian Name Role Phone Mandie Schaefer NP Primary Care Provider [phone] Tonia Mcrae MD Unavailable [phone] Encounter Details Date Type Department Care Team (Late st Contact Info) Description 01/17/2025 Prep for Procedure [facility] [place], [place] [id number] Jose Juan Mi MD [address] [facility] [address] [place], [place] [id number] Social History Tobacco Use Types Packs/Day Years Used Date Smoking Tobacco: Former Cigarettes Q uit: 02/27/2009 Smokeless Tobacco: Never Alcohol Use Standard Drinks/Week Comments No 0 (1 standard drink = 0.6 oz pur e alcohol) [facility] Utilities Answer Date Recorded In the past 12 months has e electric, gas, oil, or water [employer] threatened to shut off services in your [...] any time in the past 12 m [facility], were you homeless or living in a alf (including now)? No 01/02/2025 Comments No Sex [...] AM CDT Luc Ortiz RN Active * Wheeler Suicide Severity Rating Scale (Screener/Recent Self-Report) Question [...] and discharge planning Lifestyle No Ronna Barrientos, CORONER/MEDICAL EXAMINER documented as of this encounter Results * URINE BACTERIA CULTURE (01/11/2025 2:11 PM CDT) SPEC DESCRIPTION URINE CLEAN CATCH 01/11/2025 2:11 PM CDT [facility] SPECIAL REQUESTS NO SPECIAL REQUEST 01/11/2025 2:11 PM CDT [facility] CULTURE RESULT NO GROWTH 2 DAYS 01/13/2025 8:17 AM CDT [facility] URINE SPECIMEN OBTAINED BY CLEAN CATCH PROCEDURE / Unknown 01/11/2025 2:11 PM CDT 01/11/2025 2:21 PM CDT us Isai Stanton MD MICROBIOLOGY - GENERAL ORDERABL ES Final Result [facility] [address] [place] [address], documented in this encounter Visit Diagnoses Diagnosis Calculus of ureter- Primary documented in this encounter Care Teams Multicultural Services Librarian Relationship Specialty Start Date End Date Mandie Schaefer NP [address] [place] [address] PCP - General FAMILY PRACTICE 01/02/25 Tonia Mcrae MD [address] [place] [address] Consulting Physician NEUROLOGY 01/10/25 documented as of this encounter
--- OUTSIDE RECORDS SUMMARY | 2025-03-16 23:39 | XMS_ITS | Clinical Summary ---
Author Organization [facility] Address [address] [place] [address] Care Team Providers Care Doctor Of Chiropractic Name Role Phone Warren Cowan MD Primary Care Provider + Source Comments [facility],non-owned Affiliates and Associated Physician Practices is amultiple site organization consisting of ambulatory clinics and hospital sitesin [place], [place], [place] and [place]. This disclosure is being madepursuant to the Care Everywhere program and may not contain all information available regarding this patient. Last updated 18.[facility] Allergies No known active allergies Medications * [...] 2015 ZOSTER VACCINE (1 of 2) 2015 DEPRESSION SCREENING 07/04/2024 COVID-19 VACCINE (1 - 2023-2 5 season) 2025 INFLUENZA VACCINE (#1) 2025 HIB VACCINE Aged [...] to complete this topic Insurance [employer] MEDICARE [facility] MEDICARE SELF PAY NO INSURANCE Member Subscriber Plan / Payer (Ef fective for All Dates) Name:Abiodun Buchanan Member ID:Not on file Relation to Subscriber:Not on file Name:ABIODUN BUCHANAN Subscriber ID:Not on file (Home) Address: [address] [place] [phone] Payer ID:Not on file Group ID:Not on file Type:Self Pay Address: [place], [place] Advance Directives * Full Code (Latest Code Status on File) Date Activated Date Inactivated Comments 02/23/2016 11:33 AM 02/23/2016 7:30 PM Care Teams Doctor Of Chiropractic Relationship Specialty Start Date End Date Warren Cowan MD [address] [address] PCP - General Family Medicine 02/20/16
[2025-03-17] MEDS: SODIUM CHLORIDE 0.9% IV 1,000 ML 999 ML IV CONT (00:01)
[2025-03-17 00:34] LABS: Add Urine Microscopic? NO; Appearance Urine Clear (Clear); Glucose Urine UA 1+ mg/dL (Negative); Leukocyte Esterase Ur Negative LEU/UL (Negative); Need Manual Microscopic Reviewed; Nitrate Urine Negative (Negative); Non Pathogenic Casts 0-2; Specific Grav Ur 1.013 (1.001-1.035)
--- NOTE | 2025-03-17 00:51 | ED.GENADULT ---
HPI - General Adult General Chief complaint: Recheck/Abnormal Lab/Rx Stated complaint: high BG Time Seen by Provider: 03/16/25 23:30 History of Present Illness HPI narrative: Patient is a 59-year-old female who presents emergency department this evening due to an episodes of hyperglycemia. Patient checked her blood glucose level at home and noted to be over 400. Patient states that she was recently diagnosed with type 2 diabetes and started on metformin. States that she has been managing her glucose while at home and was unsure why she had a high reading today. Also states that she recently had an ultrasound of her bilateral kidneys and was informed that she does have some stones in her kidneys but none that are trying to pass at this time. Glucose noted to be 154 at this time. Related Data Home Medications ?Medication ?Instructions ?Recorded ?Confirmed ?Last Taken ?Type aspirin 81 mg tablet 81 mg PO DAILY 10/06/20 01/31/25 01/13/25 History furosemide 40 mg tablet 40 mg PO DAILY 01/10/25 01/31/25 01/18/25 History polyethylene glycol 1 ea miscellaneous PRN PRN 01/10/25 01/31/25 01/15/25 History constipation polyvinyl alcohol-povidone 0.5 1 drp EACH EYE QHS PRN dry eye(s) 01/10/25 01/31/25 Unknown History %-0.6 % eye drops tamsulosin 0.4 mg capsule 0.4 mg PO DAILY 01/10/25 01/31/25 01/17/25 History Allergies Allergy/AdvReac Type Severity Reaction Status Date / Time Benzodiazepines AdvReac Intermediate Confusion Verified 01/31/25 13:35 Review of Systems Review of Systems: All systems are reviewed and are negative unless stated otherwise in the HPI. [facility] Past Medical History Medical History BMI 36.0-36.9,adult Calculus of proximal right ureter Urinary tract infection GERD (gastroesophageal reflux disease) Hepatic steatosis COPD (chronic obstructive pulmonary disease) pulmonary function test 05/09/2019 Sjogrens syndrome Aortic atherosclerosis SLE (systemic lupus erythematosus) Multiple sclerosis Obesity Surgical History Surgical History History of carpal tunnel surgery of left wrist History of cholecystectomy History of total hysterectomy Hx of cystoscopy Family History Family History Father Diabetes mellitus History of multiple strokes Pacemaker Hypertension Liver cancer Heart problem Mother Hypertension History of multiple strokes Diabetes mellitus Sibling Diabetes mellitus Heart disease Other Alzheimer disease Bladder cancer Hypothyroid Social History Social History Smoking packs per day: 0.5 Smoking cigarettes per day: 10.0 Years smoked: 5 Smoking pack-years: 2.50 Smoking status: Former smoker Tobacco type: cigarettes Second hand tobacco smoke exposure: No Smoking end date: 07/04/90 Alcohol intake: current Substance use: never Substance use type: does not use Do You Feel Safe in your Home?: Yes Lack of Transportation: No Lack of Food: Never True Current Housing: I Have Housing Concerned About Future Housing: No Difficulty Paying Gas/Electric Bills: No Difficulty Paying for Meds: No Currently Unemployed: No Education: Associate Degree Difficulty w/ Childcare or Family Care: No Living arrangements: with family Occupation/Education: retired 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 HEENT: PERRL, no rhinorrhea, no post nasal drip, oropharynx clear. Neck: Trachea midline, no JVD, no lymphadenopathy. Cardiovascular: Regular rate and rhythm, no murmurs, rubs or gallops, no peripheral edema. Respiratory: Clear to auscultation bilaterally, no tachypnea, no wheezing, no rhonchi, no rubs, no respiratory distress. Abdomen: Soft, nontender, nondistended, no rebound, no guarding, no peritoneal signs. Musculoskeletal: No joint swelling or deformity, normal muscle tone. Skin: No rashes or petechia, no signs of infection. Psychiatric: Alert and oriented, normal behavior and judgment for situation. Neurological: Alert and oriented to person, place, and time. Follows all commands. No focal deficits, speech is clear and fluent. Course Vital Signs Vital signs: Vital Signs Temperature 97.9 F 03/16/25 18:23 Pulse Rate 86 03/16/25 18:23 Respiratory Rate 16 03/16/25 18:23 Blood Pressure 135/84 03/16/25 18:23 Pulse Oximetry 100 03/16/25 18:23 Temperature 97.9 F 03/16/25 18:23 Pulse Rate 71 03/16/25 23:25 Respiratory Rate 18 03/16/25 23:25 Blood Pressure 127/80 03/16/25 23:25 Pulse Oximetry 98 03/16/25 23:25 Medical Decision Making MDM Narrative Medical decision making narrative: The patient was evaluated by myself in the emergency department. History is obtained from patient who is an independent historian and physical exam was performed. External medical records were reviewed at this time. IV was established and pertinent tests were ordered. Patient was administered 1 L IV fluid bolus with normal saline. Laboratory results obtained revealing mild transaminitis with an AST of 50 and an ALT of 61 otherwise unremarkable. Urinalysis unremarkable. Differential diagnosis considerations include hyperglycemia, HHS, DKA, acute viral syndrome. Comorbidities impacting this visit include none. I have evaluated and discussed social determinants of health with the patient that could potentially impact subsequent diagnosis and treatment plans. On repeat assessment of the patient, reevaluation revealed that the patient is doing well and is in no acute distress. Patient symptoms have improved since she arrived to our emergency department. Repeat vital signs were all reviewed and noted to be stable. Differential diagnosis and treatment plan were discussed with the patient at bedside. Patient agrees with discussion and after shared medical decision making agrees with discharge. All questions were answered to the patient's satisfaction. Patient will follow up with PCP in 3-5 days. Patient was provided with strict return precautions and instructed to return to the emergency department if any new or worsening symptoms develop. The patient was discharged in stable condition. Vital Signs Vital Signs: Vital Signs Temperature 97.9 F 03/16/25 18:23 Pulse Rate 86 03/16/25 18:23 Respiratory Rate 16 03/16/25 18:23 Blood Pressure 135/84 03/16/25 18:23 Pulse Oximetry 100 03/16/25 18:23 Temperature 97.9 F 03/16/25 18:23 Pulse Rate 71 03/16/25 23:25 Respiratory Rate 18 03/16/25 23:25 Blood Pressure 127/80 03/16/25 23:25 Pulse Oximetry 98 03/16/25 23:25 Lab Data 03/16/25 21:00 03/16/25 21:00 Labs: Lab Results 03/16/25 03/16/25 03/16/25 Range/Units 18:39 21:00 22:52 WBC 11.1 H (4.5-10.0) K/mm3 RBC 4.80 (4.2-5.4) M/mm3 Hgb 15.3 H D (12.0-15.0) g/dL Hct 46.6 (37.0-47.0) % MCV 97.1 (80-100) fl MCH 31.9 (26-34) pg MCHC 32.8 (32-36) g/dl RDW 14.0 (11.5-14.5) % Plt Count 158 (150-375) k/mm3 MPV 12.4 H (7.4-10.4) fl Immature Gran % (Auto) 0.9 H (0-0.5) % Neut % (Auto) 63.5 (45.5-73.1) % Lymph % (Auto) 25.6 (18.3-44.2) % [place] % (Auto) 8.2 (2.6-8.5) % Eos % (Auto) 1.1 (0-4.4) % Baso % (Auto) 0.7 (0.2-1.2) % Lymph # (Auto) 2.83 (0.9-3.2) K/mm3 [place] # (Auto) 0.9 H (0.1-0.6) K/mm3 Eos # (Auto) 0.1 (0-0.3) K/mm3 Baso # (Auto) 0.1 (0.0-0.1) K/mm3 Abs Immat Gran (auto) 0.10 H (0.00-0.031) K/mm3 Absolute Neuts (auto) 7.0 H (1.3-6.7) K/mm3 Absolute Nucleated RBC 0.000 (0.0-0.012) K/mm3 Nucleated RBC % 0.0 (0.0-0.2) % Sodium 138 (137-145) mmol/L Potassium 3.5 (3.4-5.0) mmol/L Chloride 96 L (98-107) mmol/L Carbon Dioxide 30 (22-30) mmol/L Anion Gap 12 (4-12) mmol/L BUN 15 (7-17) mg/dL Creatinine 0.77 (0.7-1.0) mg/dL Estim Creat Clear Calc 79 ml/min Estimated GFR > 60 (59 - ) Glucose 233 H (65-110) mg/dL POC Capillary Glucose 334 H 154 H (65-105) mg/dl Calcium 8.9 (8.4-10.2) mg/dL Phosphorus 3.2 (2.5-4.5) mg/dL Magnesium 1.9 (1.6-2.3) mg/dL Total Bilirubin 0.5 (0.2-1.3) mg/dL AST 50 H (14-36) U/L ALT 61 H (6-35) U/L Alkaline Phosphatase 196 H (38-126) U/L Total Protein 7.8 (6.3-8.2) g/dL Albumin 4.5 (3.5-5.1) g/dL Beta-Hydroxybutyrate/Acetoacetate 0.09 (0.02-0.27) mmol/L Urine Color (Yellow) Urine Appearance (Clear) Urine pH (5.0-9.0) Ur Specific [place] (1.001-1.035) Urine Protein (Negative) mg/dL Urine Glucose (UA) (Negative) mg/dL Urine Ketones (Negative) mg/dL Ur Blood (Man) (Negative) Urine Nitrate (Negative) Urine Bilirubin (Negative) Urine Urobilinogen (<2.0) mg/dL Add Ur Microanalysis Leukocyte Esterase Rfl (Negative) [place]/UL Urine RBC (0-2) /hpf Urine WBC (0-3) /hpf Ur Squamous Epith Cells (Few) /hpf Urine Bacteria /hpf Urine Casts 03/16/25 Range/Units 23:57 WBC (4.5-10.0) K/mm3 RBC (4.2-5.4) M/mm3 Hgb (12.0-15.0) g/dL Hct (37.0-47.0) % MCV (80-100) fl MCH (26-34) pg MCHC (32-36) g/dl RDW (11.5-14.5) % Plt Count (150-375) k/mm3 MPV (7.4-10.4) fl Immature Gran % (Auto) (0-0.5) % Neut % (Auto) (45.5-73.1) % Lymph % (Auto) (18.3-44.2) % [place] % (Auto) (2.6-8.5) % Eos % (Auto) (0-4.4) % Baso % (Auto) (0.2-1.2) % Lymph # (Auto) (0.9-3.2) K/mm3 [place] # (Auto) (0.1-0.6) K/mm3 Eos # (Auto) (0-0.3) K/mm3 Baso # (Auto) (0.0-0.1) K/mm3 Abs Immat Gran (auto) (0.00-0.031) K/mm3 Absolute Neuts (auto) (1.3-6.7) K/mm3 Absolute Nucleated RBC (0.0-0.012) K/mm3 Nucleated RBC % (0.0-0.2) % Sodium (137-145) mmol/L Potassium (3.4-5.0) mmol/L Chloride (98-107) mmol/L Carbon Dioxide (22-30) mmol/L Anion Gap (4-12) mmol/L BUN (7-17) mg/dL Creatinine (0.7-1.0) mg/dL Estim Creat Clear Calc ml/min Estimated GFR (59 - ) Glucose (65-110) mg/dL POC Capillary Glucose (65-105) mg/dl Calcium (8.4-10.2) mg/dL Phosphorus (2.5-4.5) mg/dL Magnesium (1.6-2.3) mg/dL Total Bilirubin (0.2-1.3) mg/dL AST (14-36) U/L ALT (6-35) U/L Alkaline Phosphatase (38-126) U/L Total Protein (6.3-8.2) g/dL Albumin (3.5-5.1) g/dL Beta-Hydroxybutyrate/Acetoacetate (0.02-0.27) mmol/L Urine Color Yellow (Yellow) Urine Appearance Clear (Clear) Urine pH 6.0 (5.0-9.0) Ur Specific [place] 1.013 (1.001-1.035) Urine Protein Negative (Negative) mg/dL Urine Glucose (UA) 1+ H (Negative) mg/dL Urine Ketones Negative (Negative) mg/dL Ur Blood (Man) Negative (Negative) Urine Nitrate Negative (Negative) Urine Bilirubin Negative (Negative) Urine Urobilinogen 0.2 (<2.0) mg/dL Add Ur Microanalysis Reviewed Leukocyte Esterase Rfl Negative (Negative) [place]/UL Urine RBC 0-2 (0-2) /hpf Urine WBC 0-5 (0-3) /hpf Ur Squamous Epith Cells None seen (Few) /hpf Urine Bacteria None seen /hpf Urine Casts 0-2 Discharge Plan Discharge Clinical Impression: Acute hyperglycemia Patient Disposition: Home Condition: Improved Instructions: Antibiotic Form, Diabetic Hyperglycemia (ED) Additional Instructions: Please follow-up with your family doctor within the next 3-5 days. Return to the ED if any new or worsening symptoms develop. Patient Language: Barbadian Prescriptions: No Action polyethylene glycol Powder 1 ea miscellaneous PRN PRN (Reason: constipation ) polyvinyl alcohol-povidone 0.5-0.6 % drops 1 drp EACH EYE QHS PRN (Reason: dry eye(s)) tamsulosin 0.4 mg capsule 0.4 mg PO DAILY furosemide 40 mg tablet 40 mg PO DAILY potassium chloride [K-Tab] 20 mEq tablet extended release 20 meq PO DAILY Qty: 90 0RF metformin [Glucophage XR] 500 mg tablet extended release 24 hr 500 mg PO DAILY Qty: 90 0RF levofloxacin 750 mg tablet 750 mg PO DAILY Qty: 4 0RF albuterol sulfate 2.5 mg /3 mL (0.083 %) solution for nebulization 2.5 mg inhalation Q6H PRN (Reason: shortness of breath or wheezing) Qty: 90 0RF (DME) compressor, for nebulizer Device See Rx Instructions .Route Qty: 1 0RF Rx Instructions: As directed aspirin 81 mg Tablet 81 mg PO DAILY atorvastatin 40 mg tablet 40 mg PO QHS Qty: 90 1RF levetiracetam 500 mg tablet See Rx Instructions .ROUTE .COMPLEX Qty: 540 1RF Dose Instruction: TAKE 3 TABLETS BY MOUTH TWICE DAILY Rx Instructions: TAKE 3 TABLETS BY MOUTH TWICE DAILY folic acid 1 mg tablet 1 mg PO DAILY Qty: 90 3RF ergocalciferol (vitamin D2) [Vitamin D2] 1,250 mcg (50,000 unit) capsule 50,000 unit PO MONTHLY Qty: 3 3RF topiramate 25 mg tablet See Rx Instructions .ROUTE .COMPLEX Qty: 90 2RF Dose Instruction: TAKE 1 TABLET BY MOUTH EVERYDAY AT BEDTIME Rx Instructions: TAKE 1 TABLET BY MOUTH EVERYDAY AT BEDTIME pregabalin 150 mg capsule 150 mg PO TID Qty: 90 5RF methotrexate sodium 2.5 mg tablet See Rx Instructions .ROUTE .COMPLEX Qty: 39 1RF Dose Instruction: TAKE 3 TABLETS BY MOUTH ONCE WEEKLY Rx Instructions: TAKE 3 TABLETS BY MOUTH ONCE WEEKLY pantoprazole 40 mg tablet,delayed release (DR/EC) See Rx Instructions .ROUTE .COMPLEX Qty: 180 1RF Dose Instruction: TAKE 1 TABLET BY MOUTH TWICE A DAY Rx Instructions: TAKE 1 TABLET BY MOUTH TWICE A DAY baclofen 20 mg tablet See Rx Instructions .ROUTE .COMPLEX Qty: 90 1RF Dose Instruction: TAKE 1 TABLET (20 MG) BY MOUTH EVERY DAY AT BEDTIME Rx Instructions: TAKE 1 TABLET (20 MG) BY MOUTH EVERY DAY AT BEDTIME sucralfate 1 gram tablet 1 g PO Q6H Qty: 360 1RF Rx Instructions: 90 day supply (DME) OneTouch Verio test strips Strip See Rx Instructions .Route Qty: 100 5RF Rx Instructions: daily hydrocodone-acetaminophen 10-325 mg tablet 0.5 tablet PO Q6H PRN (Reason: pain) Qty: 50 0RF (DME) lancets [Easy Comfort Lancets] 30 gauge misc See Rx Instructions .Route Qty: 100 2RF Rx Instructions: Use 1 daily to check blood glucose ropinirole 1 mg tablet 1 mg PO QHS Qty: 30 2RF meclizine 25 mg tablet See Rx Instructions .ROUTE .COMPLEX Qty: 100 3RF Dose Instruction: TAKE 1 TABLET BY MOUTH 4 TIMES A DAY NEEDED FOR DIZZINESS Rx Instructions: TAKE 1 TABLET BY MOUTH 4 TIMES A DAY NEEDED FOR DIZZINESS Follow-up/Referrals: Mandie Schaefer APRN [Primary Care Provider, Family Practice] - 3 Days Time of Disposition: 00:51
[2025-03-17 01:20] VITALS: BP 127/72; PULSE 71; RESP 14; O2SAT 99
== END 2025-03-17 01:21 | disposition home or self-care (01) ==
PROVIDERS: Emergency Provider Emergency Medicine; PCP Nurse Practitioner Family
DX: E11.65 Type 2 diabetes mellitus with hyperglycemia (principal); K21.9 Gastro-esophageal reflux disease without esophagitis; J44.9 Chronic obstructive pulmonary disease, unspecified; M32.9 Systemic lupus erythematosus, unspecified; Z79.84 Long term (current) use of oral hypoglycemic drugs
CPT/HCPCS: 36415; 80053; 81003; 82010; 82948; 83735; 84100; 85025; 96360; 99283; J7030

== ENCOUNTER 2025-03-27 10:44 | Outpatient (CLI) | payer OTHER, SELFPAY ==
--- NOTE | ~2025-03-27 | XR_ITS ---
Abdominal radiograph(s) INDICATION: Kidney stone, preop COMPARISON: CT 01/19/2025 TECHNIQUE: 2 views supine AP abdomen FINDINGS: Small left renal stone persists. No right renal stones identified. No ureteral stones identified. Scattered colonic gas and stool. Small bowel loops not well seen. No evidence of organomegaly. No acute bony abnormality. IMPRESSION: 1. Small left renal stone persists. 2. No right-sided stone identified. Reviewed, dictated and finalized at location R.
--- OUTSIDE RECORDS SUMMARY | 2025-03-27 11:39 | XMS_ITS | Encounter Summary ---
Author Organization [facility] Address [address] [place] [address] Care Team Providers Care Aerodynamicist Name Role Phone Mandie Schaefer NP Primary Care Provider [phone] Tonia Mcrae MD Unavailable [phone] Encounter Details Date Type Department Care Team (Late st Contact Info) Description 01/17/2025 Prep for Procedure [facility] [place], [place] [id number] Jose Juan Mi MD [address] [facility] [address] [place], [place] [id number] Social History Tobacco Use Types Packs/Day Years Used Date Smoking Tobacco: Former Cigarettes Q uit: 02/27/2009 Smokeless Tobacco: Never Alcohol Use Standard Drinks/Week Comments No 0 (1 standard drink = 0.6 oz pur e alcohol) [facility] Utilities Answer Date Recorded In the past 12 months has e electric, gas, oil, or water Pay[employer] threatened to shut off services in your [...] any time in the past 12 m [facility], were you homeless or living in a retirement (including now)? No 01/02/2025 Comments No Sex [...] AM CDT Luc Ortiz RN Active * [place] Suicide Severity Rating Scale (Screener/Recent Self-Report) Question [...] and discharge planning Lifestyle No Ronna Barrientos, CITY WELLNESS COORDINATOR documented as of this encounter Results * URINE BACTERIA CULTURE (01/11/2025 2:11 PM CDT) SPEC DESCRIPTION URINE CLEAN CATCH 01/11/2025 2:11 PM CDT [facility] SPECIAL REQUESTS NO SPECIAL REQUEST 01/11/2025 2:11 PM CDT [facility] CULTURE RESULT NO GROWTH 2 DAYS 01/13/2025 8:17 AM CDT [facility] URINE SPECIMEN OBTAINED BY CLEAN CATCH PROCEDURE / Unknown 01/11/2025 2:11 PM CDT 01/11/2025 2:21 PM CDT us Isai Stanton MD MICROBIOLOGY - GENERAL ORDERABL ES Final Result [facility] [address] [place] [address], documented in this encounter Visit Diagnoses Diagnosis Calculus of ureter- Primary documented in this encounter Care Teams Aerodynamicist Relationship Specialty Start Date End Date Mandie Schaefer NP [address] [place] [address] PCP - General FAMILY PRACTICE 01/02/25 Tonia Mcrae MD [address] [place] [address] Consulting Physician NEUROLOGY 01/10/25 documented as of this encounter
--- OUTSIDE RECORDS SUMMARY | 2025-03-27 11:39 | XMS_ITS | Encounter Summary ---
Author Organization [facility] Address [address] [facility] [address] [place] [address] Care Team Providers Care Worship Pastor Name Role Phone Warren Cowan MD Primary Care Prov ider Warren Cowan MD Primary Care Prov ider Encounter Details Date Type Department Care Team (Late st Contact Info) Description 07/29/2016 Orders Only [facility] ProviderRavi MD [address] [place] [address] Social History Tobacco Use Types Packs/Day Years Used Date Smoking Tobacco: Former Alcohol Use Standard Drinks/Week Comments No 0 (1 standard drink = 0.6 oz pur e alcohol) Comments Unknown Sex and Gender Information Value Date Recorded Sex Assigned at Not on file Legal Sex Female 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
--- OUTSIDE RECORDS SUMMARY | 2025-03-27 11:39 | XMS_ITS | Encounter Summary ---
Author Organization [facility] Address [address] [facility] [address] [place] [address] Care Team Providers Care Cylinder Valve Repairer Name Role Phone Warren Cowan MD Primary Care Prov ider Warren Cowan MD Primary Care Prov ider Encounter Details Date Type Department Care Team (Late st Contact Info) Description 09/12/2016 Orders Only [facility] ProviderRavi MD [address] [place] [address] Social History Tobacco Use Types Packs/Day Years Used Date Smoking Tobacco: Former Alcohol Use Standard Drinks/Week Comments No 0 (1 standard drink = 0.6 oz pur e alcohol) Comments Unknown Sex and Gender Information Value Date Recorded Sex Assigned at Not on file Legal 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
--- OUTSIDE RECORDS SUMMARY | 2025-03-27 11:39 | XMS_ITS | Encounter Summary ---
Author Organization [facility] Address [address] [facility] [address] [place] [id number] Care Team Providers Care Confectionery Drops Machine Operator Name Role Phone Warren Cowan MD Primary Care Prov ider Warren Cowan MD Primary Care Prov ider Encounter Details Date Type Department Care Team (Late st Contact Info) Description 06/17/2016 Orders Only [facility] ProviderRavi MD [address] [place] [address] Social History Tobacco Use Types Packs/Day Years Used Date Smoking Tobacco: Former Alcohol Use Standard Drinks/Week Comments No 0 (1 standard drink = 0.6 oz pur e alcohol) Comments Unknown Sex and Gender Information Value Date Recorded Sex Assigned at Not on file Legal Sex Female 3:[address]IGHT Gender Identity Not on file Sexual Orientation [...] on filedocumented in this encounter Care Teams Confectionery Drops Machine Operator Relationship Specialty Start Date End Date Warren Cowan MD PCP - General 10/01/16 Warren Cowan MD PCP - General 06/26/15 09/30/16 documented as of this encounter
--- OUTSIDE RECORDS SUMMARY | 2025-03-27 11:39 | XMS_ITS | Encounter Summary ---
Author Organization [facility] Address [facility] [place] [address] Care Team Providers Care Sql Data Analyst Name Role Phone Warren Cowan MD Primary Care Provider + [phone] Mandie Schaefer NP Primary Care Provider [phone] Tonia Mcrae MD Unavailable [phone] Encounter Details Date Type Department Care Team (Late st Contact Info) Description 12/09/2018 Abstract [facility] CONVERSION [address] [place] [address] , Generic ConversionMD Social History Tobacco Use [...] on filedocumented in this encounter Care Teams Sql Data Analyst Relationship Specialty Start Date End Date Warren Cowan MD [address] [address] PCP - General FAMILY PRACTICE 02/27/19 01/01/25 Mandie Schaefer NP [address] [place] [address] PCP - General FAMILY PRACTICE 01/02/25 Tonia Mcrae MD [address] [place] [address] Consulting Physician NEUROLOGY 01/10/25 documented as of this encounter
--- OUTSIDE RECORDS SUMMARY | 2025-03-27 11:39 | XMS_ITS | Clinical Summary ---
Author Organization [facility] Address [address] [place] [address] Care Team Providers Care Application Packaging Specialist Name Role Phone Warren Cowan MD Primary Care Provider [phone] Allergies No known active allergies Medications levETIRAcetam [...] mouth. Activ e naloxone (NARCAN) 4 mg/spray [place], Non-Aerosol EMERGENCY USE ONLY: Administer 1 spray [...] Comments Blood Pressure 102/64 06/18/2024 10:55 AM SENIOR INSTRUMENTATION ENGINEER Pulse 55 06/18/2024 10:55 AM SENIOR INSTRUMENTATION ENGINEER Temperature 36.5 C (97.7 F) 06/18/2024 10:55 AM SENIOR INSTRUMENTATION ENGINEER Respiratory Rate 15 06/18/2024 10:5 5 AM SENIOR INSTRUMENTATION ENGINEER Oxygen Saturation 97% 06/18/2024 10: 55 AM SENIOR INSTRUMENTATION ENGINEER Inhaled Oxygen Concentration - - Weight 100.3 kg (221 lb 3.2 oz) 024 10:55 AM SENIOR INSTRUMENTATION ENGINEER Height 157.5 cm (5' 2) 11/03/2021 3:41 PM CDT Body Mass Index 40.46 11/03/2021 3:41 PM CDT Plan of Treatment Upcoming Encounters Date Type Department Care Team (Late st Contact Info) Description 06/18/2025 10:00 AM SENIOR INSTRUMENTATION ENGINEER Office Visit [facility] [place] [address] [facility] [address] [place] [address] Aki Guido MD [address] [facility] [address] [place] [address] Health Maintenance Due Date Last [...] 2) 2015 INFLUENZA VACCINE (#1) 2025 Insurance [facility] MCR Care Teams Application Packaging Specialist Relationship Specialty Start Date End Date Warren Cowan MD PCP - General Family Practice 11/01/19
--- OUTSIDE RECORDS SUMMARY | 2025-03-27 11:39 | XMS_ITS | Clinical Summary ---
Author Organization [facility] Address [facility] [place] [address] Care Team Providers Care Mounter [employer] Name Role Phone Mandie Schaefer NP Primary Care Provider [phone] Tonia Mcrae MD Unavailable [phone] Allergies No known active allergies Medications vitamin [...] Reported on 02/05/2025 Blood Glucose Monitoring Suppl (D-NG Advantage GLUCOMETER) w/Device KitIndications:tal betes 1 Units by [...] Encounters Date Type Department Care Team Description 03/18/2025 9:52 AM CDT - 03/18/2025 11:59 PM CDT Hospital Encounter [facility] [address] [place] [address] Luz Rosario PA Discharge Disposition: Home or Self Care (Routine Discharge) 03/18/2025 Travel 02/19/2025 10:00 AM CDT Home Care Visit [place] [address] [place] [address] Sandra Herrera, RN SN OASIS DISCHARGE/ASSESSMENT 02/12/2025 11:00 AM CDT Home Care Visit [place] [address] [place] [address] Kelsie Iraheta LPN SN HOME VISIT 02/12/2025 Home Care Visit [place] [address] [place] [address] Sandra Herrera, RN CASE COMMUNICATION 02/09/2025 10:00 AM CDT Home Care Visit [place] [address] [place] [address] Jackelyn Flannery, PT PT INITIAL EVALUATION 02/08/2025 9:00 AM CDT Home Care Visit [place] [address] [place] [address] Sandra Herrera, RN SN HOME VISIT 02/07/2025 10:00 AM CDT Home Care Visit [facility] Home [place] [address] [place] [address] Jackelyn Flannery, PT CASE COMMUNICATION 02/05/2025 10:00 AM CDT Home Care Visit [place] [address] [facility] [place] [address] Sandra Herrera, RN SN OASIS START OF CARE 02/05/2025 Plan of Care Documentation [facility] Home Care [address] [phone] 01/28/2025 Scan HEALTH INFO SRVCS Scanned, [facility] 01/17/2025 11:37 AM CDT Anesthesia Event [place] [address] Marcellus Mary MD Jackson, Samantha Rae, REFRIGERATION INSULATOR 01/17/2025 11:36 AM CDT - 01/17/2025 1:[address] [place] [address] Isai Stanton MD CYSTOSCOPY WITH RIGHT URETEROSCOPY, STONE REMOVAL, RIGHT RETROGRADE PYELOGRAM, AND RIGHT STENT REMOVAL 01/17/2025 8:15 AM CDT - 01/17/2025 2:19 PM CDT Hospital Encounter [facility] [place] [address] Isai Stanton MD Discharge Disposition: Home or Self Care (Routine Discharge) 01/17/2025 Travel 01/17/[address] [place] [place] [place] [address] Jose Juan Mi MD 01/15/2025 Results Follow-Up [facility] 3rd Floor [place] [address] Jacque Bustamante RN COMPREHENSIVE METABOLIC PANEL, CBC W/DIFF AUTOMATED 01/14/2025 8:00 AM CDT Home Care Visit [facility] Home Care [address] [phone] Meeta Coronado RN SN NON ADMIT SOC 01/11/2025 2:04 PM CDT - 01/11/2025 11:59 PM CDT Hospital En[facility] [place] [address] Isai Stanton MD Discharge Disposition: Home or Self Care (Routine Discharge) 01/11/2025 2:03 PM CDT Hospital Encounter [facility] [place] [address] Digna Maloney PA-C Discharge Disposition: Home or Self Care (Routine Discharge) 01/11/2025 2:00 PM CDT - 01/11/2025 2:02 PM CDT Hospital Encounter [facility] [place] [address] Mandie Schaefer NP Discharge Disposition: Home or Self Care (Routine Discharge) 01/11/[address] [facility] [place] [address] Mandie Schaefer LEAD SOLUTIONS ARCHITECT 01/11/2025 Travel 01/10/2025 Travel 01/08/2025 Hospital Follow-up Call [facility] [place] [address] Viky Pereira LPN Follow Up Call (NATHALIE 01/02-01/06/25) 01/03/2025 11:53 AM CDT - 01/03/2025 12:57 PM CDT [place] [address] Isai Stanton MD CYSTOSCOPY, RIGHT RETROGRADE PYELOGRAM, RIGHT URETERAL STENT PLACEMENT 01/03/2025 11:46 AM CDT Anesthesia [place] [address] Shamar Mead MD Butler, Sarah Elyse S, CRNA 01/02/2025 2:15 PM CDT - 01/06/2025 10:39 AM CDT Hospital Encounter [facility] Med/Surg 3rd Floor ONE [facility] [address] Roberto Irwin MD Lamonica, Kandace C, MD Doan, Melissa [...] materials from doctor or pharmacy Never 02/19/2025 [facility] Utilities Answer Date Recorded In the past 12 months has e Eyenalyze, oil, or water Color [employer] threatened to shut off services in your [...] any time in the past 12 m [facility], were you homeless or living in a residential (including now)? No 01/02/2025 Comments No Sex [...] Retinopathy Eye Exam 1983 Pneumococcal Vaccine: 50+ Years (1 of 2 - PCV) 1984 Mammogram Screening 2005 Zoster Vaccines (1 of 2) 2015 Lipid Panel 08/28/2020 08/28/2019 DTaP, Tdap and Td Vaccines ( 2 - Td or Tdap) 01/22/2024 01/21/2014, 11/19/1994 PHQ-2 (Physician Anna Maria) 07/04/2024 COVID-19 Vaccine (2023-2 5 season) 2025 Hemoglobin A1C 04/05/2025 01/03/2025 Hepatitis C Completed 01/03/2025 Meningococcal B Vaccine Aged Out No l onger eligible based on patient's age to complete this topic Meningococcal Vaccine Aged Out No ashley jayleen eligible based on patient's age to complete this topic RSV Immunizations Under 20 Months Aged Out No longer eligible b ased on patient's age to complete this topic Goals Goal Patient Goal Type Associated Problems Recent Progress Patient-Stated? 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 nicu Devices Explanted Type Area Bleach Supervisor Device Identifier Shelf Expiration Date Model / Serial / Lot Stent Ureteral Pigtail 6fr 24cm Crv Taper Tip - [id number] Implanted:Qty : 1 on 01/03/2025 by Isai Stanton MD at [facility] Explanted:Qty : 1 on 01/17/2025 by Isai Stanton MD at [facility] Stent Right: Ureter Plastic [employer] LASHAWN [id number] 05/31/2027 [id number] / [id number] Procedures Procedure Name Priority Date/Time Associated Diagnosis Comments XR ABD KUB Routine 03/18/2025 10:14 AM CDT Kidney stone POCT GLUCOSE - DOCKED DEVICE Routine 01/17/2025 12:46 PM CDT SURG XR RETROGRD UROGRAPHY Routine 01/17/2025 12:37 PM CDT STONE ANALYSIS Routine 01/17/2025 12:14 PM CDT LITHOTRIPSY INLCUDING INSERTION OF INDWELLING URETERAL STENT 01/17/2025 11:37 AM CDT RIGHT URETERAL STONE N20.1 Case Notes SCHED BY FAX ON 01/09/25 [facility] PHONE ASSESS POCT GLUCOSE - DOCKED DEVICE [...] CDT from Last 3 Months Results * XR ABD KUB (03/18/2025 10:14 AM CDT) Anatomical Region Laterality Modality Abdomen Radiographic Malgorzata ging 03/20/2025 3:01 PM CDT Impressions 03/20/2025 3:13 PM CDT IMPRESSION: 1. No renal or ureteric stones are identified. 2. Moderate to large fecal burden within the colon, which can be seen with constipation. Referred By: Interpreted By: Rama Carroll MD, 03/20/2025 3:01 PM Narrative 03/20/2025 3:[address] [address] PROCEDURE: XR ABD KUB. 03/18/2025 9:55 AM. HISTORY: Kidney stone TECHNIQUE: Supine image(s) of the abdomen and pelvis were obtained on 03/18/2025. at 1014 hours. COMPARISON: None. FINDINGS: LINES OR TUBES: None LUNG BASES: Unremarkable. BOWEL GAS PATTERN: There are no abnormally dilated loops of bowel. Moderate to large fecal burden within the colon. FREE AIR: No free air is detected on this supine exam. CALCIFICATIONS/OTHER: Cholecystectomy clips are seen in the right upper quadrant. No aggressive osseous lesions are identified. MUSCULOSKELETAL: Degenerative changes are seen in the visualized portions of the spine. Procedure Note Rama Carroll MD - 03/20/[address] [address] PROCEDURE: XR ABD KUB. 03/18/2025 9:55 AM. HISTORY: Kidney stone TECHNIQUE: Supine image(s) of the abdomen and pelvis were obtained on03/18/2025. at 1014 hours. COMPARISON: None. FINDINGS: LINES OR TUBES: None LUNG BASES: Unremarkable. BOWEL GAS PATTERN: There are no abnormally dilated loops of bowel.Moderate to large fecal burden within the colon. FREE AIR: No free air is detected on this supine exam. CALCIFICATIONS/OTHER: Cholecystectomy clips are seen in the right upperquadrant. No aggressive osseous lesions are identified. MUSCULOSKELETAL: Degenerative changes are seen in the visualized portionsof the spine. IMPRESSION: 1. No renal or ureteric stones are identified. 2. Moderate to large fecal burden within the colon, which can be seenwith constipation. Referred By: Interpreted By: Rama Carroll MD, 03/20/2025 3:01 PM [facility] Final Result * (ABNORMAL) POCT glucose (01/17/2025 12:46 PM CDT) Only the most recent of20 resultswithin the time period is included. GLUCOSE POC 154(H) 70 - 99 mg/dL 01/17/2025 12:48 PM CDT [facility] 01/17/2025 12:4 6 PM CDT Isai Stanton MD POCT ORDERABLES - DEVICE Final Result [facility] [address] [place] [address], [place] [phone] * SURG XR RETROGRD UROGRAPHY (01/17/2025 12:37 [...] 7:05 AM Narrative 01/18/2025 7:05 AM CDT [facility] [address] [place], [place] [address] FLUOROSCOPY CONTROL ONLY Procedure Note Uri Olivera MD - 01/18/2025 [facility] [address] [place] [address] FLUOROSCOPY CONTROL ONLY Impression: No radiologic interpretation will be issued. The report and documentationof this exam will reside in the patient's permanent medical record and inthe attending physician's procedure note. Ordered By: ISAI STANTON Interpreted By: Uri Olivera MD, 01/18/2025 7:05 AM Isai Stanton MD IMAGES ONLY Final Result * STONE ANALYSIS (01/17/2025 12:14 PM CDT) SOURCE KIDNEY STONE 01/17/2025 12:15 PM CDT [facility] STONE ANALYSIS COMPONENT REPORT 01/25/2025 12:12 AM CDT [employer] [facility] Comment: Calcium Oxalate Dihydrate (Weddellite) 25% Calcium Oxalate Monohydrate (Whewellite) 50% Carbonate Apatite (Dahllite) 25% STONE ANALYSIS WEIGHT 0.034 g 01/25/2025 12:12 AM CDT [employer] [facility] Comment: Formalin, surgical gel, tape adhesive or transport media interfere with the analytical procedure. Follow up testing with the UroRisk(R) Panel is suggested for affected samples, if clinically indicated. This test was developed and its analytical performance characteristics have been determined by [facility]. It has not been cleared or approved by the FDA. This assay has been validated pursuant to the CLIA regulations and is used for clinical purposes. Test performed by [facility] [address] [place] [address] Program Instructor: Sandra Casey MD,PHD,TAO Test Reported by [employer], [facility], [address] [place], [place] Warren Swanson M.D., Ph.D., Director of Laboratories , [place] [id number] STONE CALCULUS SPECIMEN / Unknown 01/17/2025 12:14 PM CDT Isai Stanton MD BODY FLUIDS AND STOOLS ORDERABL ES Final Result [employer] [facility] [address] [place], [place] , [place] [phone] [facility] [address] [place] [id number], [place] [phone] * (ABNORMAL) COMPREHENSIVE METABOLIC PANEL (01/11/2025 2:18 PM CDT) Only the most recent of3 resultswithin the time period is included. GLUCOSE 175(H) 70 - 99 MG/DL 01/11/2025 2:57 PM CDT [facility] BUN 16 7 - 18 MG/DL 01/11/2025 2:57 PM CDT [facility] CREATININE S/P/B 1.18(H) 0.55 - 1.02 MG/DL 01/11/2025 2:57 PM CDT [facility] SODIUM S/P/B 138 136 - 145 MMOL/L 01/11/2025 2:57 PM CDT [facility] POTASSIUM S/P/B 3.1(L) 3.5 - 5.1 MMOL/L 01/11/2025 2:57 PM CDT [facility] CHLORIDE S/P/B 104 97 - 115 MMOL/L 01/11/2025 2:57 PM CDT [facility] CO2 27.4 21 - 32 MMOL/L 01/11/2025 2:57 PM CDT [facility] CALCIUM S/P/B 9.1 8.5 - 10.1 MG/DL 01/11/2025 2:57 PM CDT [facility] BILIRUBIN TOTAL S/P/B 0.7 0.2 - 1.2 MG/DL 01/11/2025 2:57 PM CDT [facility] Comment: THIS ASSAY IS NOT RECOMMENDED FOR PATIENTS UNDERGOING TREATMENT WITH ELTROMBOPAG DUE TO THE POTENTIAL FOR FALSELY ELEVATED RESULTS. TOTAL PROTEIN S/P/B 6.8 6.4 - 8.2 G/DL 01/11/2025 2:57 PM CDT [facility] ALBUMIN S/P/B 3.3(L) 3.4 - 5.0 G/DL 01/11/2025 2:57 PM CDT [facility] AST 42(H) 15 - 37 U/L 01/11/2025 2:57 PM T [facility] ALT 61(H) 14 - 55 U/L 01/11/2025 2:57 PM T [facility] ALKALINE PHOSPHATASE S/P/B 225(H) 50 - 136 U/L 01/11/2025 2:57 PM CDT [facility] ANION GAP 6.6 2 - 10 MMOL/L 01/11/2025 2:57 PM CDT [facility] BUN CREATININE RATIO 13.6 6 - 26 01/11/2025 2:57 PM CDT [facility] A/G RATIO 0.9(L) 1.0 - 2.0 RATIO 01/11/2025 2:57 PM T [facility] GFR ESTIMATE 53(L) >90 ML/MIN/1.7 3 M2 01/11/2025 2:57 PM CDT [facility] Comment: NOTE: eGFR is not [...] Digna Maloney PA-C LABORATORY Final Resu lt [facility] [address] [place] [address], [place] [phone] * (ABNORMAL) CBC W/DIFF AUTOMATED (01/11/2025 2:18 PM CDT) Only the most recent of6 resultswithin the time period is included. WBC 8.81 4.5 - 11.0 x10'3/uL 01/11/2025 2:30 PM CDT [facility] RBC 4.16(L) 4.20 - 5.40 x10'6/uL 01/11/2025 2:30 PM CDT [facility] HGB 14.3 12.0 - 16.0 G/DL 01/11/2025 2:30 PM CDT [facility] HCT 42.2 38.0 - 48.0 % 01/11/2025 2:30 PM CDT [facility] MCV 101.4(H) 81.0 - 99.0 FL 01/11/2025 2:30 PM CDT [facility] MCH 34.4(H) 27.0 - 31.0 PG 01/11/2025 2:30 PM CDT [facility] MCHC 33.9 32.0 - 36.0 G/DL 01/11/2025 2:30 PM CDT [facility] RDW 16.2(H) 11.5 - 14.5 % 01/11/2025 2:30 PM CDT [facility] PLT 182 130 - 400 x10'3/uL 01/11/2025 2:30 PM CDT [facility] MPV 12.6(H) 9.3 - 12.2 FL 01/11/2025 2:30 PM CDT [facility] DIFFERENTIAL TYPE AUTOMATED DIFFERENTIAL 01/11/2025 2:30 PM CDT [facility] NEUTROPHILS % 63.7 % 01/11/2025 2:30 PM CDT [facility] LYMPHOCYTES % 20.4 % 01/11/2025 2:30 PM CDT [facility] MONOCYTES % 9.3 % 01/11/2025 2:30 PM CDT [facility] EOSINOPHILS 5.0 % 01/11/2025 2:30 PM CDT [facility] BASOPHILS 0.9 % 01/11/2025 2:30 PM CDT [facility] IMMATURE GRANS % 0.7 % 01/12/20 2:30 PM CDT [facility] ABS. NEUTROPHILS 5.61 1.80 - 7.70 x10'3/uL 01/11/2025 2:30 PM CDT [facility] ABS. LYMPHOCYTES 1.80 1.00 - 4.80 x10'3/uL 01/11/2025 2:30 PM CDT [facility] ABS. MONOCYTES 0.82 0.24 - 0.86 x10'3/uL 01/11/2025 2:30 PM CDT [facility] ABS. EOSINOPHILS 0.44(H) 0.04 - 0.36 x10'3/uL 01/11/2025 2:30 PM CDT [facility] ABS. BASOPHILS 0.08 0.01 - 0.08 x10'3/uL 01/11/2025 2:30 PM CDT [facility] ABS. IMMATURE GRANULOCYTES 0.06 0.00 - 0.49 x10'3/uL 01/11/2025 2:30 PM CDT [facility] 01/11/2025 2:18 PM CDT Digna Maloney PA-C LABORATORY Final Resu lt Performing Organization Address [facility]/ZIP Co de Phone Number [facility] [address] [place] [address], * URINE BACTERIA CULTURE (01/11/2025 2:11 PM CDT) Only the most recent of2 resultswithin the time period is included. SPEC DESCRIPTION URINE CLEAN CATCH 01/11/2025 2:11 PM CDT [facility] SPECIAL REQUESTS NO SPECIAL REQUEST 01/11/2025 2:11 PM CDT [facility] CULTURE RESULT NO GROWTH 2 DAYS 01/13/2025 8:17 AM CDT [facility] URINE SPECIMEN OBTAINED BY CLEAN CATCH PROCEDURE / Unknown 01/11/2025 2:11 PM CDT 01/11/2025 2:21 PM CDT Isai Stanton MD MICROBIOLOGY - GENERAL ORDERABL ES Final Result Performing Organization Address [facility] Co de Phone Number [facility] [address] [place] [address], [place] [phone] * (ABNORMAL) BASIC METABOLIC PANEL (01/06/2025 4:58 AM CDT) Only the most recent of3 resultswithin the time period is included. GLUCOSE 149(H) 70 - 99 MG/DL 01/06/2025 5:44 AM CDT [facility] BUN 17 7 - 18 MG/DL 01/06/2025 5:44 AM T [facility] CREATININE S/P/B 0.95 0.55 - 1.02 MG/DL 01/06/2025 5:44 AM CDT [facility] SODIUM S/P/B 142 136 - 145 MMOL/L 01/06/2025 5:44 AM CDT [facility] POTASSIUM S/P/B 3.4(L) 3.5 - 5.1 MMOL/L 01/06/2025 5:44 AM T [facility] CHLORIDE S/P/B 109 97 - 115 MMOL/L 01/06/2025 5:44 AM CDT [facility] CO2 28.1 21 - 32 MMOL/L 01/06/2025 5:44 AM T [facility] CALCIUM S/P/B 8.9 8.5 - 10.1 MG/DL 01/06/2025 5:44 AM T [facility] ANION GAP 4.9 2 - 10 MMOL/L 01/06/2025 5:44 AM T [facility] BUN CREATININE RATIO 17.9 6 - 26 01/06/2025 5:44 AM T [facility] GFR ESTIMATE 69(L) >90 ML/MIN/1.7 3 M2 01/06/2025 5:44 AM T [facility] Comment: NOTE: eGFR is not [...] MD LABORATORY Final Result Performing Organization Address City/[facility]/ZIP Co de Phone Number [facility] [address] [place] [address], * VITAMIN B-12 (01/05/2025 3:50 AM CDT) VITAMIN B12 S/P/B 483 254 - 1,320 PG/ML 01/05/2025 2:04 PM CDT [facility] 01/05/2025 3:50 AM CDT Digna Maloney PA-C LABORATORY Final Resu lt Performing Organization Address City/[facility] Co de Phone Number [facility] [address] [place] [address], * FOLIC ACID SERUM (01/05/2025 3:50 AM CDT) FOLATE 16.6 3.1 - 17.5 NG/ML 01/05/2025 2:04 PM CDT [facility] 01/05/2025 3:50 AM CDT Digna Maloney PA-C LABORATORY Final Resu lt Performing Organization Address City/[facility]/ZIP Co de Phone Number [facility] [address] [place] [address], [place] [phone] * (ABNORMAL) PHOSPHORUS, INORGANIC PHOSPHATE (01/04/2025 4:23 AM CDT) Only the most recent of3 resultswithin the time period is included. PHOSPHORUS 2.1(L) 2.5 - 4.9 MG/DL 01/04/2025 5:03 AM CDT [facility] 01/04/2025 4:23 AM CDT Isai Stanton MD LABORATORY Final Result Performing Organization Address City/[facility]/ZIP Co de Phone Number [facility] [address] [place] [address], [place] [phone] * MAGNESIUM (01/04/2025 4:23 AM CDT) Only the most recent of3 resultswithin the time period is included. MAGNESIUM 2.2 1.8 - 2.4 MG/DL 01/04/2025 5:03 AM CDT [facility] 01/04/2025 4:23 AM CDT Isai Stanton MD LABORATORY Final Result Performing Organization Address [facility] de Phone Number [facility] [address] [place] [address], [place] [phone] * EEG (01/03/2025 10:37 PM CDT) Narrative [facility] - 01/03/2025 10:37 PM CDT [...] NEUROLOGY ORDERABLES Edited Re sult - Final [facility] [address] [place] [address], * (ABNORMAL) HEMOGLOBIN, GLYCOSYLATED (01/03/2025 6:41 AM CDT) HGB A1C 10.4(H) <5.7 % 01/03/2025 10:10 AM CDT [facility] Comment: ADA GUIDELINES 2010 5.7 TO 6.4% INCREASED RISK OF DIABETES > OR = 6.5% CONSISTENT WITH DIABETES ESTIMATED AVG GLUCOSE 252 mg/dL 01/03/2025 10:10 AM CDT [facility] 01/03/2025 6:41 AM CDT Ruth Salgado LEARNING COORDINATOR LABORATORY Final Resul t Performing Organization Address City/[facility]/ZIP Co de Phone Number [facility] [address] [place] [address], [place] [phone] * HEPATITIS PANEL,ACUTE (01/03/2025 6:41 AM CDT) HEPATITIS B SURFACE AG NON-REACTI VE NON-REACTI VE 01/03/2025 9:58 AM CDT [facility] HEP B CORE IGM NON-REACTI VE NON-REACTI VE 01/03/2025 9:58 AM CDT [facility] HAV IGM NON-REACTI VE NON-REACTI VE 01/03/2025 9:58 AM CDT [facility] HEPATITIS C AB NON-REACTI VE NON-REACTI VE 01/03/2025 9:58 AM CDT [facility] 01/03/2025 6:41 AM CDT Ruth Salgado LEARNING COORDINATOR LABORATORY Final Resul t Performing Organization Address [facility] Co de Phone Number [facility] [address] [place] [address], [place] [phone] * XR CHEST PORTABLE (01/02/2025 6:45 PM CDT) Anatomical Region Laterality Modality Chest Radiographic Malgorzata ging 01/02/2025 7:32 PM CDT Impressions 01/02/2025 7:34 PM CDT IMPRESSION: Minimal left basilar opacity likely reflecting minimal left basilar atelectasis. Referred By: Interpreted By: Patric Oscar DO, 01/02/2025 7:32 PM Narrative 01/02/2025 7:34 PM CDT [address] [address] Examination: XR CHEST PORTABLE Exam time: 01/02/2025 [...] Procedure Note Patric Oscar DO - 01/02/[address] [address] Examination: XR CHEST PORTABLE Exam time: 01/02/2025 [...] By: Patric Oscar DO, 01/02/2025 7:32 PM Ruth Salgado LEARNING COORDINATOR GENERAL IMAGING Final Resul t * PRO-BRAIN NATRIURETIC PEPTIDE (01/02/2025 6:21 PM CDT) PRO-B TYPE NATRIURETIC PEPTIDE 67 <125 PG/ML 01/02/2025 7:17 PM CDT [facility] Comment: CUT POINTS ESTABLISHED BY [...] FOR ACUTE CHF. 01/02/2025 6:21 PM CDT Ruth Salgado LEARNING COORDINATOR LABORATORY Final Resul t Performing Organization Address [facility] Co de Phone Number [facility] [address] [place] [phone], [place] [phone] * (ABNORMAL) POTASSIUM, SERUM (01/02/2025 6:21 PM CDT) POTASSIUM S/P/B 2.9(LL) 3.5 - 5.1 MMOL/L 01/02/2025 7:17 PM CDT [facility] Comment: Critical Result(s) Called at: 19:16:41 on 01/02/2025 by: Corie Valdez to and read back by:DORA GOODRICH 01/02/2025 6:21 PM CDT Ruth Salgado LEARNING COORDINATOR LABORATORY Final Resul t Performing Organization Address [facility] Co de Phone Number [facility] [address] [place] [id number], [place] [phone] * CT ABD+PEL W CON (01/02/2025 6:11 [...] 7:22 PM Narrative 01/02/2025 7:32 PM CDT [address] [address] EXAMINATION: CT ABD+PEL W CON EXAM DATE: [...] osteoarthritis affects the hips. Procedure Note Patric Oscar, - 01/02/[address] [address] EXAMINATION: CT ABD+PEL W CON EXAM DATE: [...] clinically warranted, MRI could be obtained tofurther ezio. 4. Moderately distended urinary bladder with a focus of air in thenondependent portion of the urinary bladder likely reflecting recentinstrumentation. 5. Sigmoid diverticulosis without CT evidence to suggest acutediverticulitis and other findings as above. Referred By: Interpreted By: Patric Oscar DO, 01/02/2025 7:22 PM us Ruth Salgado LEARNING COORDINATOR CT Final Resul t * (ABNORMAL) KEPPRA LEVEL (01/02/2025 5:29 PM CDT) KEPPRA 102.6(H) 6.0 - 46.0 mcg/mL 01/05/2025 5:22 PM CDT [employer] BELEN COLINDRES Comment: THIS RESULT HAS BEEN VERIFIED BY REPEAT ANALYSIS. Brivaracetam (Briviact(R), Rikelta(R)) exhibits significant cross-reactivity in the Levetiracetam (Keppra(R), Spritam(R)) immunoassay. If Brivaracetam has been prescribed, order test code 01393 Levetiracetam by LCMSMS. Test Performed by [employer], [facility], [address] [place] [address] Warren Swanson M.D., Ph.D., Director of Laboratories , CLIA [id number] 01/02/2025 5:29 PM CDT us Ruth Salgado LEARNING COORDINATOR LABORATORY Final Resul t to [place] [id number] [place], [place] , [place] [phone] * (ABNORMAL) DRUG SCREEN RAPID (01/02/2025 4:34 PM CDT) AMPHETAMINE (U) NEGATIVE NEGATIVE 5:40 PM CDT [facility] BARBITURATES SCREEN (U) NEGATIVE NEGATIVE 01/02/2025 5:40 PM CDT [facility] BENZODIAZEPINES SCREEN (U) NEGATIVE NEGATIVE 01/02/2025 5:40 PM CDT [facility] CANNABINOIDS SCREEN (U) NEGATIVE NEGATIVE 01/02/2025 5:40 PM CDT [facility] COCAINE METABOLITES (U) NEGATIVE NEGATIVE 01/02/2025 5:40 PM CDT [facility] METHADONE (U) NEGATIVE NEGATIVE 01/02/2025 5:40 PM CDT [facility] OPIATE SCREEN (U) POSITIVE(A) NEGATIVE 2024 5:40 PM CDT [facility] PHENCYCLIDINE PCP (U) NEGATIVE NEGATIVE 01/02/2025 5:40 PM CDT [facility] Comment: NOTE: RESULTS OF THIS DRUG SCREEN SHOULD BE USED FOR MEDICAL PURPOSES ONLY AND NOT FOR LEGAL OR EMPLOYMENT PURPOSES. POSITIVE RESULTS ARE NOT CONFIRMED. MEDICATIONS CONTAINING EPHEDRINE MAY CAUSE FALSE POSITIVE AMPHETAMINE CALL [phone], LAB, TO REQUEST CONFIRMATION TESTING. IF CREATININE IS <40 mg/dL. RECOLLECTION IS SUGGESTED. AMPHETAMINE- 500 NG/ML BARBITURATE- 200 NG/ML BENZODIAZEPINES- 200 NG/ML THC- 50 NG/ML COCAINE- 150 NG/ML METHADONE- 300 NG/ML OPIATE- 300 MG/ML PCP- 25 NG/ML CREATININE (U) 36.2 28 - 217 MG/DL 01/02/2025 5:40 PM CDT [facility] URINE SPECIMEN / Unknown 01/02/2025 4:34 PM CDT Ruth Salgado LEARNING COORDINATOR URINE ORDERABLES Final Resu lt [facility] [address] [place] [address], [place] [phone] * (ABNORMAL) URINALYSIS (01/02/2025 4:34 PM CDT) SPECIMEN TYPE URINE CLEAN CATCH 01/02/2025 4:33 PM CDT [facility] COLOR (U) LIGHT YELLOW 01/02/2025 5:40 PM CDT [facility] TRANSPARENCY TURBID 01/02/2025 5:40 PM CDT [facility] SPECIFIC GRAVITY (U) 1.011 1.001 - 1.030 01/02/2025 5:40 PM CDT [facility] U PH 6.5 5.0 - 9.0 01/02/2025 5:40 PM CDT [facility] LEUKOCYTES (U) 25(A) NEGATIVE 01/02/2025 5:40 PM CDT [facility] NITRITES 1+(A) NEGATIVE 01/02/2025 5:40 PM CDT [facility] PROTEIN RANDOM (U) NEGATIVE <30 MG/DL 01/02/2025 5:40 PM CDT [facility] GLUCOSE (U) >1000(A) NORMAL MG/DL 01/02/2025 5:40 PM CDT [facility] KETONES MG/DL (U) NEGATIVE NEGATIVE MG/DL 01/02/2025 5:40 PM CDT [facility] UROBILINOGEN NORMAL NORMAL MG/DL 01/02/2025 5:40 PM CDT [facility] BILIRUBIN (U) NEGATIVE NEGATIVE MG/DL 01/02/2025 5:40 PM CDT [facility] BLOOD (U) TRACE(A) NEGATIVE 01/02/2025 5:40 PM CDT [facility] WBC/HPF 7(H) <6 /HPF 01/02/2025 5:40 PM CDT [facility] RBC/HPF 5 <6 /HPF 01/02/2025 5:40 PM CDT [facility] BACTERIA (U) RARE(A) NONE /HPF 01/02/2025 5:40 PM CDT [facility] SQUAMOUS EPITHELIALS RARE /HPF 01/02/2025 5:40 PM CDT [facility] URINE SPECIMEN OBTAINED BY CLEAN CATCH PROCEDURE / Unknown 01/02/2025 4:34 PM CDT us oCnstanza Helms LEAD SOLUTIONS ARCHITECT URINE ORDERABLES Final Result Performing Organization Address City/State/[facility] Co de Phone Number [facility] [address] [place] [address], * ECG 12 lead (01/02/2025 3:39 PM CDT) 01/02/2025 3:39 PM CDT Narrative [facility] ([facility] RAD - 01/02/2025 4:28 PM CDT [address] Test Date: 2025-01-02 Pat Name: ALLIE HUSTON Department: 41 Room: Gender: Female 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 : 1965 Requested By: CONSTANZA HELMS Order Number: [id number] Reading MD: Anibal Holly Measurements Intervals [place] Rate: 64 P: 52 AL: 169 QRS: 14 QRSD: 89 T: 26 QT: 410 QTc: 425 Interpretive Statements SINUS RHYTHM Compared to ECG 03/20/2019 12:09:38 T-wave abnormality no longer present Possible ischemia no longer present Procedure Note Anibal Holly MD - 01/02/[address] Test Date: 2025-01-02 Pat Name: ALLIE HUSTON Department: 41 Room: Gender: Female 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: [id number] : 1965 Requested By: CONSTANZA HELMS Order Number: [id number] Reading MD: Anibal Holly Measurements Intervals [place] Rate: 64 P: 52 AL: 169 QRS: 14 QRSD: 89 T: 26 QT: 410 QTc: 425 Interpretive Statements SINUS RHYTHM Compared to ECG 03/20/2019 12:09:38 T-wave abnormality no longer present Possible ischemia no longer present us Constanza Helms LEAD SOLUTIONS ARCHITECT ECG ORDERABLES Final Result [facility] ([facility]) RAD * CT HEAD WO CON (01/02/2025 3:21 PM CDT) Anatomical Region Laterality Modality Head Computed Tomogra phy 01/02/2025 4:04 PM CDT Impressions 01/02/2025 4:12 PM CDT IMPRESSION: Normal noncontrast head CT. Referred By: Interpreted By: David Bray MD, 01/02/2025 4:04 PM Narrative 01/02/2025 4:12 PM [address] [address] EXAM: CT HEAD WO CON DATE: 01/02/2025 [...] Procedure Note David Bray MD - 01/02/[address] [address] EXAM: CT HEAD WO CON DATE: 01/02/2025 [...] Bray MD, 01/02/2025 4:04 PM Constanza Helms LEAD SOLUTIONS ARCHITECT CT Final Result * TSH W/REFLEX (01/02/2025 2:46 PM CDT) TSH 2.030 0.358 - 3.74 uIU/ML 01/02/2025 5:40 PM CDT [facility] Comment: HIGH DOSES OF BIOTIN MAY INTERFERE WITH THIS TEST RESULT. CORRELATION TO CLINICAL HISTORY AND PRESENTATION RECOMMENDED. FREE T4 NOT INDICATED 01/02/2025 2:46 PM CDT us Ruth Salgado APRN LABORATORY Final Resul t Performing Organization Address City/[facility] Co de Phone Number [facility] [address] [place] [address], * (ABNORMAL) AMMONIA (01/02/2025 2:46 PM CDT) AMMONIA 40(H) 11 - 32 UMOL/L 01/02/2025 5:40 PM CDT [facility] 01/02/2025 2:46 PM CDT us Ruth Salgado LEARNING COORDINATOR LABORATORY Final Resul t Performing Organization Address [facility] Co de Phone Number [facility] [address] [place] [address], [place] [phone] * LIPASE (01/02/2025 2:46 PM CDT) LIPASE 27 13 - 75 UNITS/L 01/02/2025 5:40 PM CDT [facility] 01/02/2025 2:46 PM CDT us Ruth Salgado LEARNING COORDINATOR LABORATORY Final Resul t Performing Organization Address City/[facility] Co de Phone Number [facility] [address] [place] [address], [place] [phone] * PROLACTIN (01/02/2025 2:46 PM CDT) PROLACTIN 6.1 NG/ML 01/02/2025 6:27 PM CDT [facility] Comment:FEMALE REFERENCE RAN GE (NON-): 4.8-23.3 01/02/2025 2:46 PM CDT us Ruth Salgado LEARNING COORDINATOR LABORATORY Final Resul t Performing Organization Address City/[facility]/ZIP Co de Phone Number [facility] [address] [place] [address], [place] [phone] * CK (CPK) (01/02/2025 2:46 PM CDT) CPK 131 21 - 215 U/L 01/02/2025 5:40 PM CDT [facility] 01/02/2025 2:46 PM CDT Ruth Salgado LEARNING COORDINATOR LABORATORY Final Resul t Performing Organization Address City/[facility] Co de Phone Number [facility] [address] [place] [address], [place] [phone] from Last 3 Months Insurance [employer] Advance Directives * Full Code (Latest Code Status on File) Date Activated Date Inactivated Comments 02/05/2025 10:41 PM * Full Code Date Activated Date Inactivated Comments 01/02/2025 5:48 PM 01/06/2025 12:55 PM Care Teams Mounter [employer] Relationship Specialty Start Date End Date Mandie Schaefer NP [address] [place] [address] PCP - General FAMILY PRACTICE 01/02/25 Tonia Mcrae MD [address] [place] [address] Consulting Physician NEUROLOGY 01/10/25
--- OUTSIDE RECORDS SUMMARY | 2025-03-27 11:39 | XMS_ITS | Clinical Summary ---
Author Organization [facility] [address] [place] [address] Care Team Providers Care Stage Electrician Helper Name Role Phone Warren Cowan MD [...] implantable loop record er 08/04/2015 Overview (02/18/2017): [employer] reveal implantable loop recorder Dx; Syncope. 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 Gender Identity Not on file Sexual Orientation Not on file Obstetrics History Last Filed Vital Signs Vital Sign Reading Time Taken Comments Blood Pressure 126/76 08/28/2019 2:17 PM BUSINESS CHANGE MANAGER Pulse 64 08/28/2019 2:17 PM BUSINESS CHANGE MANAGER Temperature - - Respiratory Rate 16 03/09/2017 2:37 PM CDT Oxygen Saturation 96% 08/28/2019 2:17 PM BUSINESS CHANGE MANAGER Inhaled Oxygen Concentration - - Weight 96.6 kg (213 lb) 08/28/2019 2:17 PM BUSINESS CHANGE MANAGER Height 165.1 cm (5' 5) 08/28/2019 2:17 PM BUSINESS CHANGE MANAGER Body Mass Index 35.45 08/28/2019 2:17 PM BUSINESS CHANGE MANAGER Plan of Treatment Health Maintenance Due Date [...] this topic Medical Devices Implanted Type Area Package Collector Device Identifier Shelf Expiration Date Model / Serial / Lot Implantable Loop Recorder Implantable Loop Recorder [employer] Insurance HEALTHCARE Care Teams Stage Electrician Helper Relationship Specialty Start Date End Date Warren Cowan MD PCP - General 10/01/16
--- OUTSIDE RECORDS SUMMARY | 2025-03-27 11:39 | XMS_ITS | Encounter Summary ---
Author Organization [facility] Address [address] [facility] [place] [address] Care Team Providers Care Fruit Grader Operator Name Role Phone Warren Cowan MD Primary Care Prov ider Encounter Details Date Type Department Care Team (Late st Contact Info) Description 10/24/2016 Orders Only [facility] ProviderRavi MD [address] [place] [id number] Social History Tobacco Use Types Packs/Day Years Used Date Smoking Tobacco: Former Alcohol Use Standard Drinks/Week Comments No 0 (1 standard drink = 0.6 oz pur e alcohol) Comments Unknown Sex and Gender Information Value Date Recorded Sex Assigned at Not on file Legal Sex Female 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
== END 2025-03-27 10:45 | disposition home or self-care (01) ==
PROVIDERS: PCP Nurse Practitioner Family; Visit Provider Physician Assistant
DX: N20.0 Calculus of kidney (principal)
CPT/HCPCS: 74018

== ENCOUNTER 2025-04-12 01:24 | Day surgery (SDC) | payer OTHER, SELFPAY ==
[2025-04-05 09:57] VITALS: BMI 36.8
--- NOTE | 2025-04-05 10:11 | SUR.PREOP ---
[facility] has started construction of its new state of the art ER which will open Spring 2026. With this, we anticipate parking may be a challenge for some our surgical patients and families. Parking spaces are limited but are available for all Surgical, obstetrics, and ER patients sharing this lot. If you arrive and find you are having a hard time finding a parking space, please note that we understand the challenges, please drive around the hospital and park near Hospital Entrance 1. When you enter this entrance, you can ask a volunteer to direct or take you back to the surgical waiting area to check in. We appreciate everyone?s understanding of these expected challenges while we build for your future. Report to the Outpatient Waiting Room, entrance under the green pavilion located off [address], at time __1200 on date _04/12/25 . Planned Procedure Time: ____2pm____.? Time changes happen often and if your time is changed the preop area will call you the afternoon before. - You and your visitor will be asked to self-screen and do not enter if you have any COVID symptoms. Please call surgeon if you need to reschedule. - A mask is optional within the hospital at this time. Patients may have clear liquids (water, carbonated beverages, clear teas, apple juice) until 3 hours prior to surgery with a maximum of 20 ounces. - No food from midnight until time of surgery and no smoking, or chewing tobacco (or any form of nicotine). No chewing gum, candy or mints. Take only the following medications with a SIP of water on the morning of surgery: Baclofen, Vicoden, Lyrica, Keppra, Prednisone. (and albuterol if needed). DO NOT STOP ANY OF YOUR OTHER PRESCRIPTION MEDICATIONS PRIOR TO SURGERY EXCEPT THE FOLLOWING Hold all vitamins and supplements for 3 days per anesthesiologist. Medications to discontinue per physician _Pt said she stopped her ASA 04/04/25 Per the surgeon. Date to take last dose____04/08/25 Please no make-up, nail malay, hairspray, perfume, deodorant, or body powder the day of surgery.? No jewelry (including any body piercings) or valuables the day of surgery, leave them at home.? Please take a shower or bath the night before, or the morning of, surgery with an antibacterial soap.? Wear comfortable, loose fitting clothing.? Children are encouraged to wear pajamas. - Jewelry must be removed prior to entering the operating room.? Rings and piercings that are not removed may be cut off. - The hospital will not accept responsibility for valuables.? - Please leave all valuables, including medications, at home the day of surgery. If you are going home after surgery, a licensed airport driver must drive you home.? - NO public transportation without another adult if you receive anesthesia. - We recommend that an adult stay with you for 24 hours following discharge. - We also recommend that you do not drive, make important decision, drink alcoholic beverages, or take any drugs that were not prescribed by your health care provider for at least 24 hours after your discharge time. Follow any additional instructions given to you from your surgeon. Telephone instructions given to __Debra and asked if any additional questions and then verbalized understanding. Patient advised to call surgeon office or pre surgery nurse liaison [phone] if any additional questions.
[2025-04-12] VITALS (7 sets, daily range): BP systolic 129–138; BP diastolic 61–79; PULSE 67–71; RESP 10–18; TEMP 36.4–36.6; O2SAT 96–100; BMI 36.1
--- NOTE | ~2025-04-12 | XR_ITS ---
EXAMINATION: XR retrograde pyelo w/stent BI DATE: 04/12/2025 15:05 INDICATION: Left renal stone and right internal ureteral stent placement TECHNIQUE: 5 fluoroscopic images of the abdomen and pelvis were obtained during procedure performed by Dr. Tyler. Radiologist was not present for the imaging or procedure. The amount of fluoroscopy time used during this procedure was 0.6 minutes. Total DAP was 0.764 mGym^2. COMPARISON: 03/27/2025 FINDINGS: Derrick Boat Operator images demonstrate cholecystectomy clips in right upper quadrant. The previously noted left renal stone is unable to be identified. Subsequent images demonstrate cannulation and retrograde contrast injection into the right renal collecting system with mild right hydronephrosis. Subsequent placement of a right internal ureteral stent with loops formed in the right renal pelvis and in the bladder. Cannulation of the left ureter with a wire advanced into the left renal collecting system to be some of the images. IMPRESSION: 1. Fluoroscopy utilized during urologic procedure including placement of a right internal ureteral stent which is in expected position. See procedure note for further detail. Reviewed, dictated and finalized at location A. IMPRESSION: 1. Fluoroscopy utilized during urologic procedure including placement of a righ t internal ureteral stent which is in expected position. See procedure note for further detail.
--- OUTSIDE RECORDS SUMMARY | 2025-04-12 01:26 | XMS_ITS | Encounter Summary ---
Author Organization [facility] Address [address] [facility] [place] [address] Care Team Providers Care Shank Burnisher Name Role Phone Warren Cowan MD Primary Care Prov ider Warren Cowan MD Primary Care Prov ider Encounter Details Date Type Department Care Team (Late st Contact Info) Description 09/12/2016 Orders Only [facility] ProviderRavi MD [address] [place] [address] Social History Tobacco Use Types Packs/Day Years Used Date Smoking Tobacco: Former Alcohol Use Standard Drinks/Week Comments No 0 (1 standard drink = 0.6 oz pur e alcohol) Comments Unknown Sex and Gender Information Value Date Recorded Sex Assigned at Not on file 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
--- OUTSIDE RECORDS SUMMARY | 2025-04-12 01:26 | XMS_ITS | Clinical Summary ---
Author Organization [facility] Address [facility] [place] [address] Care Team Providers Care Respiratory Care Instructor Name Role Phone Mandie Schaefer NP Primary Care Provider [phone] Tonia Mcrae MD Unavailable [phone] Allergies No known active allergies Medications vitamin [...] Reported on 02/05/2025 Blood Glucose Monitoring Suppl ([employer] GLUCOMETER) w/Device KitIndications:tal betes 1 Units by [...] Diagnostic Imaging [address] [place] [address] Luz Rosario PA Discharge Disposition: Home or Self Care (Routine Discharge) 03/18/2025 Travel 02/19/2025 10:00 AM CDT Home Care Visit [place] [address] [place] [address] [address] [place] [address] Sandra Herrera, RN SN OASIS DISCHARGE/ASSESSMENT 02/12/2025 11:00 AM CDT Home Care Visit [place] [address] [place] [address] [address] Kelsie Iraheta LPN SN HOME VISIT 02/12/2025 Home Care Visit [place] [address] [place] [address] [place] [address] Sandra Herrera, RN CASE COMMUNICATION 02/09/2025 10:00 AM CDT Home Care Visit [place] [address] [place] [address] [address] [place] [address] Jackelyn Flannery, PT PT INITIAL EVALUATION 02/08/2025 9:00 AM CDT Home Care Visit [place] [address] [place] [address] Sandra Herrera, RN SN HOME VISIT 02/07/2025 10:00 AM CDT Home Care Visit [facility] Home [place] [address] [place] [address] Jackelyn Flannery, PT CASE COMMUNICATION 02/05/2025 10:00 AM CDT Home Care Visit [place] [address] [facility] [place] [address] Sandra Herrera, RN SN OASIS START OF CARE 02/05/2025 Plan of Care Documentation [facility] Home Care [address] [phone] 01/28/2025 Scan HEALTH INFO SRVCS Scanned, [facility] 01/17/2025 11:37 AM CDT Anesthesia [place] [address] Marcellus Mary MD Jackson, Samantha Rae, OCCUPATIONAL THERAPY INSTRUCTOR 01/17/2025 11:36 AM CDT - 01/17/2025 1:[address] [place] [address] Isai Stanton MD CYSTOSCOPY WITH RIGHT URETEROSCOPY, STONE REMOVAL, RIGHT RETROGRADE PYELOGRAM, AND RIGHT STENT REMOVAL 01/17/2025 8:15 AM CDT - 01/17/2025 2:19 PM CDT Hospital Encounter [facility] [place] [address] Isai Stanton MD Discharge Disposition: Home or Self Care (Routine Discharge) 01/17/2025 Travel 01/17/[address] [place] [address] Jose Juan Mi MD 01/15/2025 Results Follow-Up [facility] [address] [facility] [address] Jacque Bustamante RN COMPREHENSIVE METABOLIC PANEL, CBC W/DIFF AUTOMATED 01/14/2025 8:00 AM CDT Home Care Visit [facility] Home Care [address] [phone] Meeta Coronado RN SN NON ADMIT SOC 01/11/2025 2:04 PM CDT - 01/11/2025 11:59 [place] [address] Isai Stanton MD Discharge Disposition: Home or Self Care (Routine Discharge) 01/11/2025 2:03 [place] [address] Digna Maloney PA-C Discharge Disposition: Home or Self Care (Routine Discharge) 01/11/2025 2:00 PM CDT - 01/11/2025 2:02 PM CDT Hospital [place] [address] Mandie Schaefer NP Discharge Disposition: Home or Self Care (Routine Discharge) 01/11/2025 [place] [address] Mandie Schaefer NP 01/11/2025 Travel 01/10/2025 Travel from Last 3 Months Family History [...] materials from doctor or pharmacy Never 02/19/2025 C Utilities Answer Date Recorded In the past 12 months has th e electric, gas, oil, or water company [...] any time in the past 12 m [facility], were you homeless or living in a care home (including now)? No 01/02/2025 Comments No Sex [...] or Tdap) 01/22/2024 01/21/2014, 11/19/1994 PHQ-2 (Physician [place]) 07/04/2024 COVID-19 Vaccine ( - 2023-2 5 season) 2025 Influenza Adult (#1) 2025 Hemoglobin A1C 04/05/2025 01/03/2025 Hepatitis C [...] and discharge planning Lifestyle No Ronna Barrientos, PRODUCE WEIGHERgirls swimming coach Devices Explanted Type Area Telecommunications Field Technician Device Identifier Shelf Expiration Date Model / Serial / Lot Stent Ureteral Pigtail 6fr 24cm Crv Taper Tip - [id number] Implanted:Qty : 1 on 01/03/2025 by Isai Stanton MD at [facility] Explanted:Qty : 1 on 01/17/2025 by Isai Stanton MD at [facility] Stent Right: Ureter [place] [employer] LASHAWN [id number] 05/31/2027 [id number] Procedures Procedure Name Priority Date/Time Associated Diagnosis [...] Case Notes SCHED BY FAX ON 01/09/25 JLATRELL PHONE ASSESS POCT GLUCOSE - DOCKED DEVICE Routine 01/17/2025 9:11 AM CDT CBC W/DIFF AUTOMATED Routine 01/11/2025 2:18 PM CDT Ureteral stone Complicated UTI (urinary tract infection) SEVERO (acute kidney injury) COMPREHENSIVE METABOLIC PANEL Routine 01/11/2025 2:18 PM CDT Ureteral stone Complicated UTI (urinary tract infection) SEVERO (acute kidney injury) URINE BACTERIA CULTURE Routine 01/11/2025 2:11 PM CDT Calculus of ureter HEPATITIS PANEL,ACUTE Routine 01/03/2025 6:41 AM CDT HEMOGLOBIN, GLYCOSYLATED Routine 01/03/2025 6:41 AM CDT from Last 3 Months or Most Recently Relevant to Health Maintenance Results * XR ABD KUB (03/18/2025 10:14 [...] 3:01 PM Narrative 03/20/2025 3:13 PM [address]T [address] [address] PROCEDURE: XR ABD KUB. 03/18/2025 9:55 AM. [...] visualized portions of the spine. Procedure Note Rmaa Carroll MD - 03/20/[address] [address] PROCEDURE: XR ABD KUB. 03/18/2025 9:55 AM. [...] 12:46 PM CDT) Only the most recent of2 resultswithin the time period is included. GLUCOSE POC 154(H) 70 - 99 mg/dL 01/17/2025 12:48 PM CDT [facility] 01/17/2025 12:4 6 PM CDT Isai Stanton MD POCT ORDERABLES - DEVICE Final Result [facility] [address] [place] [address], [place] [phone] * SURG XR RETROGRD UROGRAPHY (01/17/2025 12:37 PM CDT) Anatomical Region Laterality Modality Abdomen [...] 7:05 AM Narrative 01/18/2025 7:05 AM CDT [place] [address] FLUOROSCOPY CONTROL ONLY Procedure Note Uri Olivera MD - 01/18/2025 [place] [address] FLUOROSCOPY CONTROL ONLY Impression: No radiologic interpretation will be issued. The report and documentationof this exam will reside in the patient's permanent medical record and inthe attending physician's procedure note. Ordered By: ISAI STANTON Interpreted By: Uri Olivera MD, 01/18/2025 7:05 AM Isai Stanton MD IMAGES ONLY Final Result * STONE ANALYSIS (01/17/2025 12:14 PM CDT) SOURCE KIDNEY STONE 01/17/2025 12:15 PM CDT [facility] STONE ANALYSIS COMPONENT REPORT 01/25/2025 12:12 AM CDT [facility]INDR[facility] Comment: Calcium Oxalate Dihydrate (Weddellite) 25% Calcium Oxalate Monohydrate (Whewellite) 50% Carbonate Apatite (Dahllite) 25% STONE ANALYSIS WEIGHT 0.034 g 01/25/2025 12:12 AM CDT [employer] [facility]INDR[facility] Comment: Formalin, surgical gel, tape adhesive or transport media interfere with the analytical procedure. Follow up testing with the UroRisk(R) Panel is suggested for affected samples, if clinically indicated. This test was developed and its analytical performance characteristics have been determined by [employer]. It has not been cleared or approved by the FDA. This assay has been validated pursuant to the CLIA regulations and is used for clinical purposes. Test performed by [facility] [address] [place] [address] Biofuels Production Technician: Sandra Casey MD,PHD,TAO Test Reported by [facility], [facility], [address] [place], [place] Warren Swanson M.D., Ph.D., Director of Laboratories , CLIA [id number] STONE CALCULUS SPECIMEN / Unknown 01/17/2025 12:14 PM CDT us Isai Stanton MD BODY FLUIDS AND STOOLS ORDERABL ES Final Result [facility] [address] [place], [place] , [place] [phone] [facility] [address] [place] [address], [place] [phone] * (ABNORMAL) COMPREHENSIVE METABOLIC PANEL (01/11/2025 2:18 PM CDT) GLUCOSE 175(H) 70 - 99 MG/DL 01/11/2025 2:57 PM CDT [facility] BUN 16 7 - 18 MG/DL 01/11/2025 2:57 PM CDT [facility] CREATININE S/P/B 1.18(H) 0.55 - 1.02 MG/DL 01/11/2025 2:57 PM CDT [facility] SODIUM S/P/B 138 136 - 145 MMOL/L 01/11/2025 2:57 PM CDT [facility] POTASSIUM S/P/B 3.1(L) 3.5 - 5.1 MMOL/L 01/11/2025 2:57 PM CDT [facility] CHLORIDE S/P/B 104 97 - 115 MMOL/L 01/11/2025 2:57 PM CDT [facility] CO2 27.4 21 - 32 MMOL/L 01/11/2025 2:57 PM CDT [facility] CALCIUM S/P/B 9.1 8.5 - 10.1 MG/DL 01/11/2025 2:57 PM CDT [facility] BILIRUBIN TOTAL S/P/B 0.7 0.2 - 1.2 MG/DL 01/11/2025 2:57 PM CDT [facility] Comment: THIS ASSAY IS NOT RECOMMENDED FOR PATIENTS UNDERGOING TREATMENT WITH ELTROMBOPAG DUE TO THE POTENTIAL FOR FALSELY ELEVATED RESULTS. TOTAL PROTEIN S/P/B 6.8 6.4 - 8.2 G/DL 01/11/2025 2:57 PM CDT [facility] ALBUMIN S/P/B 3.3(L) 3.4 - 5.0 G/DL 01/11/2025 2:57 PM CDT [facility] AST 42(H) 15 - 37 U/L 01/11/2025 2:57 PM CDT [facility] ALT 61(H) 14 - 55 U/L 01/11/2025 2:57 PM CDT [facility] ALKALINE PHOSPHATASE S/P/B 225(H) 50 - 136 U/L 01/11/2025 2:57 PM CDT [facility] ANION GAP 6.6 2 - 10 MMOL/L 01/11/2025 2:57 PM CDT [facility] BUN CREATININE RATIO 13.6 6 - 26 01/11/2025 2:57 PM T [facility] A/G RATIO 0.9(L) 1.0 - 2.0 RATIO 01/11/2025 2:57 PM CDT [facility] GFR ESTIMATE 53(L) >90 ML/MIN/1.7 3 M2 01/11/2025 2:57 PM CDT [facility] Comment: NOTE: eGFR is not [...] Digna Maloney PA-C LABORATORY Final Resu lt [facility] [address] [place] [address], [place] [phone] * (ABNORMAL) CBC W/DIFF AUTOMATED (01/11/2025 2:18 PM CDT) WBC 8.81 4.5 - 11.0 x10'3/uL 01/11/2025 2:30 PM CDT [facility] RBC 4.16(L) 4.20 - 5.40 x10'6/uL 01/11/2025 2:30 PM CDT [facility] HGB 14.3 12.0 - 16.0 G/DL 01/11/2025 2:30 PM CDT [facility] HCT 42.2 38.0 - 48.0 % 01/11/2025 2:30 PM CDT [facility] MCV 101.4(H) 81.0 - 99.0 FL 01/11/2025 2:30 PM CDT [facility] MCH 34.4(H) 27.0 - 31.0 PG 01/11/2025 2:30 PM CDT [facility] MCHC 33.9 32.0 - 36.0 G/DL 01/11/2025 2:30 PM CDT [facility] RDW 16.2(H) 11.5 - 14.5 % 01/11/2025 2:30 PM CDT [facility] PLT 182 130 - 400 x10'3/uL 01/11/2025 2:30 PM CDT [facility] MPV 12.6(H) 9.3 - 12.2 FL 01/11/2025 2:30 PM CDT [facility] DIFFERENTIAL TYPE AUTOMATED DIFFERENTIAL 01/11/2025 2:30 PM CDT [facility] NEUTROPHILS % 63.7 % 01/11/2025 2:30 PM CDT [facility] LYMPHOCYTES % 20.4 % 01/11/2025 2:30 PM CDT [facility] MONOCYTES % 9.3 % 01/11/2025 2:30 PM CDT [facility] EOSINOPHILS 5.0 % 01/11/2025 2:30 PM CDT [facility] BASOPHILS 0.9 % 01/11/2025 2:30 PM CDT [facility] IMMATURE GRANS % 0.7 % 01/12/20 2:30 PM CDT [facility] ABS. NEUTROPHILS 5.61 1.80 - 7.70 x10'3/uL 01/11/2025 2:30 PM CDT [facility] ABS. LYMPHOCYTES 1.80 1.00 - 4.80 x10'3/uL 01/11/2025 2:30 PM CDT [facility] ABS. MONOCYTES 0.82 0.24 - 0.86 x10'3/uL 01/11/2025 2:30 PM CDT [facility] ABS. EOSINOPHILS 0.44(H) 0.04 - 0.36 x10'3/uL 01/11/2025 2:30 PM CDT [facility] ABS. BASOPHILS 0.08 0.01 - 0.08 x10'3/uL 01/11/2025 2:30 PM CDT [facility] ABS. IMMATURE GRANULOCYTES 0.06 0.00 - 0.49 x10'3/uL 01/11/2025 2:30 PM CDT [facility] 01/11/2025 2:18 PM CDT Digna Maloney PA-C LABORATORY Final Resu lt Performing Organization Address City/[facility] Co de Phone Number [facility] [address] [place] [address], [place] [phone] * URINE BACTERIA CULTURE (01/11/2025 2:11 PM CDT) SPEC DESCRIPTION URINE CLEAN CATCH 01/11/2025 2:11 PM CDT [facility] SPECIAL REQUESTS NO SPECIAL REQUEST 01/11/2025 2:11 PM CDT [facility] CULTURE RESULT NO GROWTH 2 DAYS 01/13/2025 8:17 AM CDT [facility] URINE SPECIMEN OBTAINED BY CLEAN CATCH PROCEDURE / Unknown 01/11/2025 2:11 PM CDT 01/11/2025 2:21 PM CDT Isai Stanton MD MICROBIOLOGY - GENERAL ORDERABL ES Final Result Performing Organization Address City/[facility]/ZIP Co de Phone Number [facility] [address] [place] [address], [place] [phone] * (ABNORMAL) HEMOGLOBIN, GLYCOSYLATED (01/03/2025 6:41 AM CDT) HGB A1C 10.4(H) <5.7 % 01/03/2025 10:10 AM CDT [facility] Comment: ADA GUIDELINES 2010 5.7 TO 6.4% INCREASED RISK OF DIABETES > OR = 6.5% CONSISTENT WITH DIABETES ESTIMATED AVG GLUCOSE 252 mg/dL 01/03/2025 10:10 AM CDT [facility] 01/03/2025 6:41 AM CDT Ruth Agee Damian KEY HOLDER LABORATORY Final Resul t [facility] [address] [place] [address], [place] [phone] * HEPATITIS PANEL,ACUTE (01/03/2025 6:41 AM CDT) Pathologist [facility] HEPATITIS B SURFACE AG NON-REACTI VE NON-REACTI VE 01/03/2025 9:58 AM CDT [facility] HEP B CORE IGM NON-REACTI VE NON-REACTI VE 01/03/2025 9:58 AM CDT [facility] HAV IGM NON-REACTI VE NON-REACTI VE 01/03/2025 9:58 AM CDT [facility] HEPATITIS C AB NON-REACTI VE NON-REACTI VE 01/03/2025 9:58 AM CDT [facility] 01/03/2025 6:41 AM CDT Ruth Agee Damian KEY HOLDER LABORATORY Final Resul t [facility] [address] [place] [address], [place] [phone] from Last 3 Months or Most Recently Relevant to Health Maintenance Insurance [employer] Advance Directives * Full Code (Latest Code Status on File) Date Activated Date Inactivated Comments 02/05/2025 10:41 PM * Full Code Date Activated Date Inactivated Comments 01/02/2025 5:48 PM 01/06/2025 12:55 PM Care Teams Respiratory Care Instructor Relationship Specialty Start Date End Date Mandie Schaefer NP [address] [place] [address] PCP - General FAMILY PRACTICE 01/02/25 Tonia Mcrae MD [address] [place] [address] Consulting Physician NEUROLOGY 01/10/25
--- OUTSIDE RECORDS SUMMARY | 2025-04-12 01:26 | XMS_ITS | Clinical Summary ---
Author Organization [facility] Address [address] [place] [address] Care Team Providers Care Eyelet Row Marker Name Role Phone Warren Cowan MD Primary Care Provider + Source Comments [facility],non-owned Affiliates and Associated Physician Practices is amultiple site organization consisting of ambulatory clinics and hospital sitesin [place], [place], [place] and [place]. This disclosure is being madepursuant to the Care Everywhere program and may not contain all information available regarding this patient. Last updated 18.[facility] Allergies No known active allergies Medications * [...] age to complete this topic Insurance [facility] Address: [facility] [address] [place] [address] MEDICARE [facility] MEDICARE SELF PAY NO INSURANCE Member Subscriber Plan / Payer (Ef fective for All Dates) Name:Abiodun Buchanan Member ID:Not on file Relation to Subscriber:Not on file Name:ABIODUN BUCHANAN Subscriber ID:Not on file (Home) Address: [address] [place] [id number] Payer ID:Not on file Group ID:Not on file Type:Self Pay Address: [place], [place] Advance Directives * Full Code (Latest Code Status on File) Date Activated Date Inactivated Comments 02/23/2016 11:33 AM 02/23/2016 7:30 PM Care Teams Eyelet Row Marker Relationship Specialty Start Date End Date Warren Cowan MD [address] [address] PCP - General Family Medicine 02/20/16
--- OUTSIDE RECORDS SUMMARY | 2025-04-12 01:26 | XMS_ITS | Encounter Summary ---
Author Organization [facility] Address [address] [facility] [address] [place] [address] Care Team Providers Care High School Band Teacher Name Role Phone Warren Cowan MD Primary Care Prov ider Warren Cowan MD Primary Care Prov ider Encounter Details Date Type Department Care Team (Late st Contact Info) Description 07/29/2016 Orders Only [facility] ProviderRavi MD [address] [place] [address] Social History Tobacco Use Types Packs/Day Years Used Date Smoking Tobacco: Former Alcohol Use Standard Drinks/Week Comments No 0 (1 standard drink = 0.6 oz pur e alcohol) Comments Unknown Sex and Gender Information Value Date Recorded Sex Assigned at Not on file Legal Sex Female 3:44 AM SHOPFITTER Gender Identity Not on file Sexual Orientation [...] on filedocumented in this encounter Care Teams High School Band Teacher Relationship Specialty Start Date End Date Warren Cowan MD PCP - General 10/01/16 Warren Cowan MD PCP - General 06/26/15 09/30/16 documented as of this encounter
--- OUTSIDE RECORDS SUMMARY | 2025-04-12 01:26 | XMS_ITS | Encounter Summary ---
Author Organization [facility] Address [address] [place] [address] Care Team Providers Care Top Lifter Name Role Phone Mandie Schaefer NP Primary Care Provider [phone] Tonia Mcrae MD Unavailable [phone] Encounter Details Date Type Department Care Team (Late st Contact Info) Description 01/17/2025 Prep for Procedure [facility] [place], [place] [id number] Jose Juan Mi MD [address] [facility] [address] [place], [place] [id number] Social History Tobacco Use Types Packs/Day Years Used Date Smoking Tobacco: Former Cigarettes Q uit: 02/27/2009 Smokeless Tobacco: Never Alcohol Use Standard Drinks/Week Comments No 0 (1 standard drink = 0.6 oz pur e alcohol) [facility] Utilities Answer Date Recorded In the past 12 months has e electric, gas, oil, or water [employer] threatened to shut off services in your [...] were you homeless or living in a long-term (including now)? No 01/02/2025 Comments No Sex [...] AM CDT Luc Ortiz RN Active * Randall Suicide Severity Rating Scale (Screener/Recent Self-Report) Question [...] and discharge planning Lifestyle No Ronna Barrientos, MUTUEL TELLER documented as of this encounter Results * URINE BACTERIA CULTURE (01/11/2025 2:11 PM CDT) SPEC DESCRIPTION URINE CLEAN CATCH 01/11/2025 2:11 PM CDT [facility] SPECIAL REQUESTS NO SPECIAL REQUEST 01/11/2025 2:11 PM CDT [facility] CULTURE RESULT NO GROWTH 2 DAYS 01/13/2025 8:17 AM CDT [facility] URINE SPECIMEN OBTAINED BY CLEAN CATCH PROCEDURE / Unknown 01/11/2025 2:11 PM CDT 01/11/2025 2:21 PM CDT us Isai Stanton MD MICROBIOLOGY - GENERAL ORDERABL ES Final Result [facility] [address] [place] [address], documented in this encounter Visit Diagnoses Diagnosis Calculus of ureter- Primary documented in this encounter Care Teams Top Lifter Relationship Specialty Start Date End Date Mandie Schaefer NP [address] [place] [address] PCP - General FAMILY PRACTICE 01/02/25 Tonia Mcrae MD [address] [place] [address] Consulting Physician NEUROLOGY 01/10/25 documented as of this encounter
--- OUTSIDE RECORDS SUMMARY | 2025-04-12 01:26 | XMS_ITS | Encounter Summary ---
Author Organization [facility] Address [address] [facility] [address] [place] [address] Care Team Providers Care Core Fitter Name Role Phone Warren Cowan MD Primary Care Prov ider Warren Cowan MD Primary Care Prov ider Encounter Details Date Type Department Care Team (Late st Contact Info) Description 06/17/2016 Orders Only [facility] ProviderRavi MD [address] [place] [address] Social History Tobacco Use Types Packs/Day Years Used Date Smoking Tobacco: Former Alcohol Use Standard Drinks/Week Comments No 0 (1 standard drink = 0.6 oz pur e alcohol) Comments Unknown Sex and Gender Information Value Date Recorded Sex Assigned at Not on file Legal Sex Female 3:44 AM DORMITORY MAID Gender Identity Not on file Sexual Orientation [...] on filedocumented in this encounter Care Teams Core Fitter Relationship Specialty Start Date End Date Warren Cowan MD PCP - General 10/01/16 Warren Cowan MD PCP - General 06/26/15 09/30/16 documented as of this encounter
--- OUTSIDE RECORDS SUMMARY | 2025-04-12 01:26 | XMS_ITS | Clinical Summary ---
Author Organization [facility] [address] Address [address] [place] [address] Care Team Providers Care Education Courses Sales Representative Name Role Phone Warren Cowan MD Primary [...] implantable loop record er 08/04/2015 Overview (02/18/2017): [employer]echtr[employer] reveal implantable loop recorder Dx; Syncope. DOI [...] Date Comments Lupus erythematosus Lupus; Comme nts: [facility] 03/04/2015 - Multiple sclerosis MS; Comments: [facility] 03/04/2015 - Family History Medical [...] on file Legal Sex Female 3:44 AM MASTER RIGGER Gender Identity Not on file Sexual Orientation Not on file Obstetrics History Last Filed Vital Signs Vital Sign Reading Time Taken Comments Blood Pressure 126/76 08/28/2019 2:17 PM MASTER RIGGER Pulse 64 08/28/2019 2:17 PM MASTER RIGGER Temperature - - Respiratory Rate 16 03/09/2017 2:37 PM CDT Oxygen Saturation 96% 08/28/2019 2:17 PM MASTER RIGGER Inhaled Oxygen Concentration - - Weight 96.6 kg (213 lb) 08/28/2019 2:17 PM MASTER RIGGER Height 165.1 cm (5' 5) 08/28/2019 2:17 PM MASTER RIGGER Body Mass Index 35.45 08/28/2019 2:17 PM MASTER RIGGER Plan of Treatment Health Maintenance Due Date [...] this topic Medical Devices Implanted Type Area Rinkman Device Identifier Shelf Expiration Date Model / Serial / Lot Implantable Loop Recorder Implantable Loop Recorder Chest [employer] Insurance [facility] Care Teams Education Courses Sales Representative Relationship Specialty Start Date End Date Warren Cowan MD PCP - General 10/01/16
--- OUTSIDE RECORDS SUMMARY | 2025-04-12 01:26 | XMS_ITS | Encounter Summary ---
Author Organization [facility] Address [address] [facility] [address] [place] [address] Care Team Providers Care Service Restorer Emergency Name Role Phone Warren Cowan MD Primary Care Prov ider Encounter Details Date Type Department Care Team (Late st Contact Info) Description 10/24/2016 Orders Only [facility] ProviderRavi MD [address] [place] [address] Social History Tobacco Use Types Packs/Day Years Used Date Smoking Tobacco: Former Alcohol Use Standard Drinks/Week Comments No 0 (1 standard drink = 0.6 oz pur e alcohol) Comments Unknown Sex and Gender Information Value Date Recorded Sex Assigned at Not on file Legal Sex Female 3:44 AM REHABILITATION AIDE Gender Identity Not on file Sexual Orientation [...] on filedocumented in this encounter Care Teams Service Restorer Emergency Relationship Specialty Start Date End Date Warren Cowan MD PCP - General 10/01/16 documented as of this encounter
--- NOTE | 2025-04-12 12:37 | PM.HPGS ---
History of Present Illness History of Present Illness Consent: Risks, benefits, and alternatives have been discussed and questions answered. Patient agrees to proceed with procedure. Chief complaint: Right Renal / Right Ureteral Stone Narrative: Allie Buchanan is a 59 year old female 01/03/25: ?[facility]: right ureteral stent for proximal stone 01/17/25: ?Right URS with stone extraction by Dr. Stanton -> stent not replaced 01/19/25: ?[facility] Right ureteral stent replaced for septic shock/right hydronephrosis ?Pressor support off within 24-hours Her right ureteral stent has subsequently been removed. Follow-up renal ultrasound shows persistent 8 mm stone in kidney and a smaller stone pole kidney. These stones are not calcified on KUB. Review of Systems Review of Systems: All systems reviewed & are unremarkable except as noted in HPI and below PMFSH Past Medical History Medical History (Updated 04/12/25 @ 12:38 by Sukhwinder Tyler MD) Chronic, continuous use of opioids Type 2 diabetes mellitus Seizures BMI 36.0-36.9,adult Calculus of proximal right ureter Urinary tract infection GERD (gastroesophageal reflux disease) Hepatic steatosis COPD (chronic obstructive pulmonary disease) pulmonary function test 05/09/2019 Sjogrens syndrome Aortic atherosclerosis SLE (systemic lupus erythematosus) Multiple sclerosis Obesity Surgical History Surgical History History of carpal tunnel surgery of left wrist History of cholecystectomy History of total hysterectomy Hx of cystoscopy Family History Family History Father Diabetes mellitus History of multiple strokes Pacemaker Hypertension Liver cancer Heart problem Mother Hypertension History of multiple strokes Diabetes mellitus Sibling Diabetes mellitus Heart disease Other Alzheimer disease Bladder cancer Hypothyroid Social History Social History Smoking packs per day: 0.5 Smoking cigarettes per day: 10.0 Years smoked: 10 Smoking pack-years: 5.00 Smoking status: Former smoker Tobacco type: cigarettes Second hand tobacco smoke exposure: No Smoking end date: 07/04/90 Alcohol intake: former Substance use: never Substance use type: does not use Do You Feel Safe in your Home?: Yes Lack of Transportation: No Lack of Food: Never True Current Housing: I Have Housing Concerned About Future Housing: No Difficulty Paying Gas/Electric Bills: No Difficulty Paying for Meds: No Currently Unemployed: No Education: Associate Degree Difficulty w/ Childcare or Family Care: No Living arrangements: with family Occupation/Education: retired 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 Instructions: .Provider Order atorvastatin 40 mg tablet 40 mg PO QHS #90 tabs 03/18/24 04/05/25 Rx ergocalciferol (vitamin D2) 1,250 50,000 unit PO MONTHLY #3 caps 09/27/24 04/05/25 Rx mcg (50,000 unit) capsule (Vitamin D2) folic acid 1 mg tablet 1 mg PO DAILY #90 tabs 09/27/24 04/05/25 Rx topiramate 25 mg tablet See Rx Instructions .Route 10/02/24 04/05/25 Rx Held on 01/31/25. .COMPLEX #90 tabs Instructions: Patient Condition pregabalin 150 mg capsule 150 mg PO TID #90 caps 11/12/24 04/05/25 Rx methotrexate sodium 2.5 mg tablet See Rx Instructions .Route 11/22/24 04/05/25 Rx .COMPLEX #39 tabs pantoprazole 40 mg tablet,delayed See Rx Instructions .Route 11/27/24 04/05/25 Rx release .COMPLEX #180 tabs baclofen 20 mg tablet See Rx Instructions .Route 12/02/24 04/05/25 Rx .COMPLEX #90 tabs sucralfate 1 gram tablet 1 g PO Q6H #360 tabs 12/06/24 04/05/25 Rx blood sugar diagnostic (OneTouch #100 ea 01/09/25 01/19/25 Rx Verio test strips) polyethylene glycol 1 ea miscellaneous PRN PRN 01/10/25 04/05/25 History constipation polyvinyl alcohol-povidone 0.5 1 drp EACH EYE QHS PRN dry eye(s) 01/10/25 04/05/25 History %-0.6 % eye drops hydrocodone 10 mg-acetaminophen 0.5 tablet PO Q6H PRN pain #50 tabs 01/16/25 04/05/25 Rx 325 mg tablet lancets 30 gauge (Easy Comfort #100 ea 01/18/25 01/19/25 Rx Lancets) ropinirole 1 mg tablet 1 mg PO QHS #30 tabs 01/18/25 04/05/25 Rx albuterol sulfate 2.5 mg/3 mL 2.5 mg (3 mL) inhalation Q6H PRN 01/24/25 04/05/25 Rx (0.083 %) solution for nebulization shortness of breath or wheezing #90 mL compressor, for nebulizer #1 ea 01/24/25 Rx meclizine 25 mg tablet See Rx Instructions .Route 01/27/25 04/05/25 Rx .COMPLEX #100 tabs potassium chloride 20 mEq 20 meq PO DAILY #90 tabs 01/31/25 04/05/25 Rx tablet,extended release (K-Tab) blood-glucose sensor (Dexcom G7 #3 ea 03/20/25 03/20/25 Rx Sensor device) blood-glucose,retail support manager,cont #1 ea 03/20/25 03/20/25 Rx (Dexcom G7 Electrical Research Engineer) furosemide 40 mg tablet 40 mg PO DAILY PRN edema #30 tabs 03/20/25 04/05/25 Rx insulin lispro 100 unit/mL 4 unit (0.04 mL) subcut .COMPLEX 03/20/25 04/05/25 Rx subcutaneous pen (Humalog KwikPen #15 mL (U-100) Insulin) metformin 500 mg tablet,extended 500 mg PO .COMPLEX #360 tabs 03/20/25 04/05/25 Rx release 24 hr (Glucophage XR) methylprednisolone 4 mg tablet 4 mg PO QAM #90 tabs 03/20/25 04/05/25 Rx (Medrol) pen needle, diabetic 31 gauge x #100 ea 03/20/25 03/20/25 Rx 09/16 (Comfort EZ Pen [place]) insulin zinc human recomb 100 4 unit subcut ACHS 04/05/25 04/05/25 History unit/mL subcutaneous suspension levetiracetam 500 mg tablet 1,500 mg (3 x 500 mg) PO BID #540 04/10/25 Rx tabs Allergies Allergy/AdvReac Type Severity Reaction Status Date / Time No Known Allergies Allergy Verified 04/05/25 09:45 Exam Const: General: no acute distress Resp: Effort & Inspection: normal respiratory effort GI: Inspection: non-distended GI Palp: No abdominal tenderness and No Guarding due to palpation present (GI) Auscultation: normal bowel sounds Assessment and Plan Assessment and plan (1) Bilateral renal stones: Code(s): N20.0 - Calculus of kidney Status: Acute Assessment and Plan: Cystoscopy, right ureteroscopy with laser lithotripsy, stone extraction with possible retrograde pyelogram and stent placement
--- NOTE | 2025-04-12 12:39 | WPDHPUPDATE1 ---
History and Physical Update Update Date/Time: 04/12/25 12:39 History and Physical has been reviewed, including an updated exam of the patient. There are NO changes in the patient's condition. Risks, benefits, and alternatives have been discussed and questions answered. Patient agrees to proceed with procedure.
[2025-04-12] MEDS: LACTATED RINGERS 1,000 ML 30 ML IV CONT (12:45)
--- NOTE | 2025-04-12 13:32 | WPDANESEPPF ---
Anes - Initial Pre Proc Eval Procedure: Operation Date: 04/12/25 14:00 Proposed Procedures p Cystoscopy, Right Ureteroscopy, Holmium Laser Lithotripsy, Right Stone Extraction, Possible Right Stent Placement - Sukhwinder Tyler MD Date/Time: 04/12/25 13:32 Surgeon: Sukhwinder Tyler MD Pre Op Diagnosis: Right Renal / Right Ureteral Stone Patient Data Age: 59 Gender: F Height: 1.63 m Weight: 95.35 kg Last Vital Signs Temp 36.6 C 04/12/25 12:58 Pulse 68 04/12/25 12:58 BP 133/71 04/12/25 12:58 Pulse Ox 97 04/12/25 12:58 O2 Del Method Room Air 04/12/25 12:58 Allergies Allergy/AdvReac Type Severity Reaction Status Date / Time No Known Allergies Allergy Verified 04/05/25 09:45 Home Medications ?Medication ?Instructions ?Recorded ?Confirmed ?Type aspirin 81 mg tablet 81 mg PO DAILY 10/06/20 04/05/25 History Held on 04/05/25. Instructions: .Provider Order atorvastatin 40 mg tablet 40 mg PO QHS #90 tabs 03/18/24 04/05/25 Rx ergocalciferol (vitamin D2) 1,250 50,000 unit PO MONTHLY #3 caps 09/27/24 04/05/25 Rx mcg (50,000 unit) capsule (Vitamin D2) folic acid 1 mg tablet 1 mg PO DAILY #90 tabs 09/27/24 04/05/25 Rx topiramate 25 mg tablet See Rx Instructions .Route 10/02/24 04/05/25 Rx Held on 01/31/25. .COMPLEX #90 tabs Instructions: Patient Condition pregabalin 150 mg capsule 150 mg PO TID #90 caps 11/12/24 04/05/25 Rx methotrexate sodium 2.5 mg tablet See Rx Instructions .Route 11/22/24 04/05/25 Rx .COMPLEX #39 tabs pantoprazole 40 mg tablet,delayed See Rx Instructions .Route 11/27/24 04/05/25 Rx release .COMPLEX #180 tabs baclofen 20 mg tablet See Rx Instructions .Route 12/02/24 04/05/25 Rx .COMPLEX #90 tabs sucralfate 1 gram tablet 1 g PO Q6H #360 tabs 12/06/24 04/05/25 Rx blood sugar diagnostic (OneTouch #100 ea 01/09/25 01/19/25 Rx Verio test strips) polyethylene glycol 1 ea miscellaneous PRN PRN 01/10/25 04/05/25 History constipation polyvinyl alcohol-povidone 0.5 1 drp EACH EYE QHS PRN dry eye(s) 01/10/25 04/05/25 History %-0.6 % eye drops hydrocodone 10 mg-acetaminophen 0.5 tablet PO Q6H PRN pain #50 tabs 01/16/25 04/05/25 Rx 325 mg tablet lancets 30 gauge (Easy Comfort #100 ea 01/18/25 01/19/25 Rx Lancets) ropinirole 1 mg tablet 1 mg PO QHS #30 tabs 01/18/25 04/05/25 Rx albuterol sulfate 2.5 mg/3 mL 2.5 mg (3 mL) inhalation Q6H PRN 01/24/25 04/05/25 Rx (0.083 %) solution for nebulization shortness of breath or wheezing #90 mL compressor, for nebulizer #1 ea 01/24/25 Rx meclizine 25 mg tablet See Rx Instructions .Route 01/27/25 04/05/25 Rx .COMPLEX #100 tabs potassium chloride 20 mEq 20 meq PO DAILY #90 tabs 01/31/25 04/05/25 Rx tablet,extended release (K-Tab) blood-glucose sensor (Dexcom G7 #3 ea 03/20/25 03/20/25 Rx Sensor device) blood-glucose,rd mechanical engineer,cont #1 ea 03/20/25 03/20/25 Rx (Dexcom G7 Process Safety Engineer) furosemide 40 mg tablet 40 mg PO DAILY PRN edema #30 tabs 03/20/25 04/05/25 Rx insulin lispro 100 unit/mL 4 unit (0.04 mL) subcut .COMPLEX 03/20/25 04/05/25 Rx subcutaneous pen (Humalog KwikPen #15 mL (U-100) Insulin) metformin 500 mg tablet,extended 500 mg PO .COMPLEX #360 tabs 03/20/25 04/05/25 Rx release 24 hr (Glucophage XR) methylprednisolone 4 mg tablet 4 mg PO QAM #90 tabs 03/20/25 04/05/25 Rx (Medrol) pen needle, diabetic 31 gauge x #100 ea 03/20/25 03/20/25 Rx 3/16 (Comfort EZ Pen [place]) insulin zinc human recomb 100 4 unit subcut ACHS 04/05/25 04/05/25 History unit/mL subcutaneous suspension levetiracetam 500 mg tablet 1,500 mg (3 x 500 mg) PO BID #540 04/10/25 Rx tabs Laboratory Tests 04/12/25 12:44 POC Capillary Glucose 120 H mg/dl (65-105) Patient hx anesthesia problems: none Family hx anesthesia problems: none Results Review: All pre-operative results and documents have been reviewed as part of the pre-operative evaluation. [facility] Past Medical History Medical History (Updated 04/12/25 @ 12:38 by Sukhwinder Tyler MD) Chronic, continuous use of opioids Type 2 diabetes mellitus Seizures BMI 36.0-36.9,adult Calculus of proximal right ureter Urinary tract infection GERD (gastroesophageal reflux disease) Hepatic steatosis COPD (chronic obstructive pulmonary disease) pulmonary function test 05/09/2019 Sjogrens syndrome Aortic atherosclerosis SLE (systemic lupus erythematosus) Multiple sclerosis Obesity Surgical History Surgical History History of carpal tunnel surgery of left wrist History of cholecystectomy History of total hysterectomy Hx of cystoscopy Family History Family History Father Diabetes mellitus History of multiple strokes Pacemaker Hypertension Liver cancer Heart problem Mother Hypertension History of multiple strokes Diabetes mellitus Sibling Diabetes mellitus Heart disease Other Alzheimer disease Bladder cancer Hypothyroid Social History Social History Smoking packs per day: 0.5 Smoking cigarettes per day: 10.0 Years smoked: 10 Smoking pack-years: 5.00 Smoking status: Former smoker Tobacco type: cigarettes Second hand tobacco smoke exposure: No Smoking end date: 07/04/90 Alcohol intake: former Substance use: never Substance use type: does not use Do You Feel Safe in your Home?: Yes Lack of Transportation: No Lack of Food: Never True Current Housing: I Have Housing Concerned About Future Housing: No Difficulty Paying Gas/Electric Bills: No Difficulty Paying for Meds: No Currently Unemployed: No Education: Associate Degree Difficulty w/ Childcare or Family Care: No Living arrangements: with family Occupation/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: 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 (if 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 by the patient): Female Sexual Orientation (if Verbalized by the Patient): Straight or Heterosexual Spiritual care concerns: No Agree to blood products: Yes Anes - Eval Final PreProcedure Day of Procedure 04/12/25 13:32 Patient weight: obese Heart: regular rate and rhythm Lungs: clear to auscultation Airway: Mallampati scale class II Neurological: alert and oriented Last oral intake: >/= 8 hours ASA classification: III Emergent: no Anesthetic plan: proceed Anesthesia type and monitoring: general LMA and standard monitoring Results Review: All pre-operative results and documents have been reviewed as part of the pre-operative evaluation. Informed Consent: The patient's anesthetic plan and its attendant risks and benefits were discussed with the patient/family/POA. Questions were solicited and answers provided to the satisfaction of the patient/family/POA.
[2025-04-12] MEDS: ceFAZolin 2 GM in SODIUM CHLORIDE 0.9% IV 50 ML 100 ML IVPB (14:20)
--- NOTE | 2025-04-12 14:59 | S_PTH ---
PATIENT: Allie Buchanan LOC: [facility] U#:[id number] AGE/SX: 59/F ROOM: RE04/12/[address]: Sukhwinder Tyler MD : 1965 BED: DIS: 04/12/2025 SPEC #: [id number] RECD: 04/15/25 09:07 STATUS: POLLY REAntonio #: [id number] MANDI: 04/12/25 14:[address]: Sukhwinder Tyler DEPT: [facility] Surgical RECD BY: Luci Lassiter ENTERED: 04/15/25 09:07 SP TYPE: Surgical OTHR DR: Mandie Schaefer, PATRICK Tissues: A - Stone Procedures: Gross Exam Level 1 Crystalline Analysis
--- NOTE | 2025-04-12 15:13 | W.PM.PROC2 ---
Procedure Note - Detailed Date of Procedure 04/12/25 Pre-op Diagnosis Bilateral renal calculi Post-op Diagnosis Other (1. Spontaneously passed right renal calculus 2. Left renal calculus ) Procedure Performed 1. Surgeon Sukhwinder Tyler MD Anesthesia General Description of Procedure Patient is brought to the operative suite where she was prepped draped in routine sterile fashion while in dorsal lithotomy position after the uneventful induction of a general LMA anesthetic. Cystoscopy was undertaken with a 19 F rigid cystoscope. Urethra and bladder neck or endoscopically normal. Bladder mucosa is normal without hyperemia. There is no intravesical foreign body or neoplasm. She has a single orthotopic ureteral orifice bilaterally. 0.035 in glidewire was advanced in the right pelvis and the distal ureter was dilated with an 8 F 10 F dilator. A safety wire was placed in a ureteral access sheath is placed with ease. Ureteroscopy was undertaken with a 7.5 F flexible digital ureteral scope. Retrograde pyelography was obtained to ensure inspection of all calices. Careful inspection fails to identify any from identifiable renal or ureteral calculi. Because I did place an access sheath I did place a 4.8 F variable length stent with the proximal coil in renal pelvis and distal coil in the bladder. Opted to inspect her left kidney knowing that she has a 4-5 mm stone inside. A 0.035 in glidewire placed distal ureter was dilated with an 8 F 10 F dilator. Ureteroscopy with a 7.5 F flexible scope identifies a stone in the lower pole. It is extracted with ease using a 1.9 F disposable stone basket. Because of the ease of this manipulation on the left I opted not to place a stent. Scopes and wires removed she was taken recovery room good condition Drains Yes Pathology Yes Complications No immediate complications Condition Stable Disposition PACU
[2025-04-12] MEDS: fentaNYL CITRATE INJ (*CRX) 100 MCG/2 ML VIAL 25 MCG IV PUSH ×4 (15:28→15:36)
[2025-04-12] MEDS: LIDOCAINE 2% GEL UROJET 10 ML PKG MUCOUS MEM (15:38)
== END 2025-04-12 16:40 | disposition home or self-care (01) ==
PROVIDERS: PCP Nurse Practitioner Family; Visit Provider Urology
PROC: (CPT 52352; principal; 2025-04-12 14:00)
DX: N20.0 Calculus of kidney (principal); E11.9 Type 2 diabetes mellitus without complications; K21.9 Gastro-esophageal reflux disease without esophagitis; J44.9 Chronic obstructive pulmonary disease, unspecified; M35.00 Sjogren syndrome, unspecified; M32.9 Systemic lupus erythematosus, unspecified; G35.D Multiple sclerosis, unspecified; R56.9 Unspecified convulsions; I70.0 Atherosclerosis of aorta; E66.9 Obesity, unspecified; Z68.36 Body mass index [BMI] 36.0-36.9, adult; Z79.82 Long term (current) use of aspirin; Z79.51 Long term (current) use of inhaled steroids; Z79.4 Long term (current) use of insulin; Z79.84 Long term (current) use of oral hypoglycemic drugs; Z79.891 Long term (current) use of opiate analgesic; Z98.890 Other specified postprocedural states; Z90.49 Acquired absence of other specified parts of digestive tract; Z87.891 Personal history of nicotine dependence; Z87.19 Personal history of other diseases of the digestive system; Z80.0 Family history of malignant neoplasm of digestive organs; Z80.52 Family history of malignant neoplasm of bladder; Z82.49 Family history of ischemic heart disease and other diseases of the circulatory system
CPT/HCPCS: 52352; 52332; 74420; 82365; 82948; 88300; J0690; C1769; C1894; C2617; J1100; J2405; J2704; J3010; J7120; Q9966

== ENCOUNTER 2025-06-21 14:51 | Outpatient (CLI) | payer OTHER, SELFPAY ==
--- NOTE | ~2025-06-21 | CT_ITS ---
CT abdomen pelvis wo con INDICATION:kidney stone . COMPARISON: None. TECHNIQUE: Axial 2.5 mm images of the abdomen were obtained without IV or oral contrast. Diagnostic sensitivity is limited due to lack of IV contrast. FINDINGS: The lung bases are clear. Fatty infiltration of the liver is noted. No intrahepatic mass or ductal dilatation is evident. The patient has had a cholecystectomy. The pancreas and spleen are normal in appearance. The adrenal glands are symmetric in size. The kidneys are unremarkable. Nonobstructive punctate left intrarenal stone is noted. There is no hydronephrosis. Evaluation of the stomach and bowel loops are limited due to lack of oral contrast. There is no evidence of bowel obstruction or acute appendicitis. There is stool scattered throughout the colon. There are colonic diverticulosis without evidence of acute diverticulitis. The bladder and rectum are normal. No free intraperitoneal fluid or air is evident. There is no significant retroperitoneal lymphadenopathy. The aorta, visceral vessels and renal arteries demonstrate normal caliber. The lower thoracic and lumbar vertebrae are in normal alignment. IMPRESSION: No acute abnormality is noted in the abdomen and pelvis. Hepatic steatosis. Nonobstructive left intrarenal stone. Colonic diverticulosis without evidence of acute diverticulitis. All CT scans at this facility are performed using low dose modulation techniques as appropriate to perform exam including the following: automated exposure control; use of iterative reconstruction technique; adjustment of the mA and/or kV according to patient size (this includes techniques or standardized protocols for targeted exams where dose is matched to indication/reason for exam). Reviewed, dictated and finalized at location S. TIONAL EVALUATOR IMPRESSION: No acute abnormality is noted in the abdomen and pelvis. Hepatic steatosis. Nonobstructive left intrarenal stone. Colonic diverticulosis without evidence of acute diverticulitis. All CT scans at this facility are performed using low dose modulation techniqu es as appropriate to perform exam including the following: automated exposure c ontrol; use of iterative reconstruction technique; adjustment of the mA and/or kV according to patient size (this includes techniques or standardized protocol s for targeted exams where dose is matched to indication/reason for exam).
== END 2025-06-21 14:52 | disposition home or self-care (01) ==
PROVIDERS: PCP Nurse Practitioner Family; Visit Provider Urology
DX: N20.0 Calculus of kidney (principal); K76.0 Fatty (change of) liver, not elsewhere classified; K57.30 Diverticulosis of large intestine without perforation or abscess without bleeding
CPT/HCPCS: 74176